=== PATIENT | male | born 1935 | race Caucasian/White ===

== ENCOUNTER 2020-02-06 07:01 | Outpatient (REF) | payer MEDICARE, SELFPAY ==
[2020-02-06 11:05] LABS: MANUAL DIFF FLAG NO
[2020-02-06 11:10] LABS: Basophils Absolute Auto 0.1 X10*3/uL (0.0-0.2); Basophils Percent Auto 1.2 % (0-2); Eosinophils Absolute Auto 0.4 X10*3/uL (0.0-0.4); Hematocrit 35.5 % (42-52); Hemoglobin 11.3 g/dl (14.0-18.0); Imm Gran Abs Auto 0.02 X10*3/uL (0.00-0.03); Imm Gran Pct Auto 0.2 % (0.0-0.4); Lymphocytes Absolute Auto 2.4 X10*3/uL (1.2-4.9); Lymphocytes Percent Auto 29.2 % (20-40); Mean Corpuscular HGB Conc 31.8 g/dl (31.0-36.0); Mean Corpuscular Hemoglobin 32.8 pg (27.0-33.0); Mean Corpuscular Volume 103.2 fL (80-98); Monocytes Percent Auto 12.7 % (2-11); Neutrophils Absolute Auto 4.2 X10*3/uL (2.0-8.3); Neutrophils Percent Auto 51.7 % (45-73); Platelet Count 168 X10*3/uL (160-400); Red Blood Count 3.44 X10*6/uL (4.60-5.80); Red Cell Distribution Width 13.2 % (11.0-16.0); White Blood Count 8.2 X10*3/uL (4.8-10.8)
[2020-02-06 11:27] LABS: Glucose Urine UA NEG (NEG); Leukocyte Esterase Urine NEG (NEG); Nitrite Urine NEG (NEG); PH 5.5 (5.0-8.0); Specific Gravity - Urine 1.015 (1.005-1.025); Urine Blood NEG (NEG); Urine Ketones NEG (NEG); Urine Protein NEG (NEG-TRACE)
[2020-02-06 11:31] LABS: Appearance Urine CLEAR; Color Urine YELLOW
[2020-02-06 11:47] LABS: Estimated Average Glucose 120 mg/dL; Hemoglobin A1c % 5.8 %
[2020-02-06 11:53] LABS: Bacteria Urine 2+ /LPF; RBC Urine 0 /HPF (0); Squamous Epithelial Cell Urine TRACE /LPF; WBC Urine 0-2 /HPF (0-4)
[2020-02-06 11:54] LABS: UACC CULT YES
[2020-02-06 12:00] LABS: Alanine Aminotransferase 23 U/L (0-40); Albumin Level 3.8 g/dL (3.5-5.0); Alkaline Phosphatase 30 U/L (39-117); Anion Gap 13 (12-20); Aspartate Amino Transferase 25 U/L (5-37); Bilirubin Total 0.8 mg/dL (0.0-1.0); Blood Urea Nitrogen 33 mg/dL (9-16); Calcium 8.7 mg/dL (8.4-10.2); Carbon Dioxide 24 mmol/L (22-29); Chloride 107 mmol/L (96-108); Cholesterol 112 mg/dL; Estimated Glomerular Filt Rate 40; Glucose Fasting 89 mg/dL (60-99); HDL Cholesterol 44 mg/dL; LDL Cholesterol Calculated 51 mg/dl; Sodium 139 mmol/L (135-145); Total Protein 6.6 g/dL (6.5-8.0); Triglycerides 85 mg/dL
[2020-02-06 12:04] LABS: Folate 6.7 ng/mL (> or = 4.0); Vitamin B12 1131 pg/mL (200-900)
[2020-02-06 13:52] LABS: TSH reflex Free T4 0.79 mIU/mL (0.32-4.0); Vitamin D 25-OH Total 50.6 ng/mL (>30)
== END 2020-02-06 07:02 | disposition home or self-care (01) ==
LOC: HO.HMGCLDS 07:01
PROVIDERS: PCP Internal Medicine; Visit Provider Internal Medicine
DX: E78.00 Pure hypercholesterolemia, unspecified (principal); I10 Essential (primary) hypertension; R74.8 Abnormal levels of other serum enzymes; R73.01 Impaired fasting glucose; I25.10 Atherosclerotic heart disease of native coronary artery without angina pectoris; D64.9 Anemia, unspecified; K21.9 Gastro-esophageal reflux disease without esophagitis; C67.9 Malignant neoplasm of bladder, unspecified; E55.9 Vitamin D deficiency, unspecified; E66.3 Overweight
CPT/HCPCS: 36415; 80053; 80061; 81001; 82306; 82607; 82746; 83036; 84443; 85025; 87086; 87088; 87186

== ENCOUNTER 2020-02-08 10:29 | Outpatient (REF) | payer MEDICARE, SELFPAY | END 2020-02-08 10:30 | disposition home or self-care (01) | LOC: HO.LAB 10:29 | PROVIDERS: Visit Provider Internal Medicine | DX: Z20.828 Contact with and (suspected) exposure to other viral communicable diseases (principal) | CPT/HCPCS: C9803; U0003 ==

== ENCOUNTER 2020-07-03 18:37 | Inpatient (IN) | payer OTHER, MEDICARE, SELFPAY ==
--- NOTE | ~2020-07-03 | CT_ITS ---
EXAMINATION: CT CERVICAL SPINE WITHOUT CONTRAST CLINICAL INFORMATION: Fall. Head trauma. COMPARISON: None available at the time of dictation. TECHNIQUE: CT of the cervical spine was performed without contrast. Multiplanar reformats were rendered and reviewed. This CT examination was performed using dose optimization techniques as appropriate, variously including the following: *Automated exposure control *Adjustment of mA and/or kV according to patient size (this includes techniques or standardized protocols for targeted exams where dose is matched to indication/reason for exam; i.e. extremities or head) *Use of iterative reconstruction technique DLP: 1416 mGy-cm FINDINGS: The cervical vertebral bodies maintain normal heights and alignment. Large bulky anterior endplate osteophytes are seen from C2 through C6. There is advanced intervertebral disc height loss from C2 through C6 with varying degrees of endplate sclerosis and prominent subchondral cystic changes. No fracture is seen. The craniovertebral junction appears intact. There are disc osteophyte complexes in addition to uncovertebral hypertrophy and facet arthropathy. At C5-C6 there is moderate to severe spinal canal stenosis. There is multilevel neural foraminal stenosis including high-grade narrowing at multiple levels. Dense atheromatous calcifications are seen within the arteries. The imaged portions of the intracranial contents are unremarkable. The lung apices are grossly clear. There is chronic appearing fracture of the left scapula. There is heterogeneous calcification within the left shoulder girdle. CT/CT cervical spine wo con IMPRESSION: No cervical spine fracture or traumatic malalignment identified. Advanced multilevel degenerative spondylotic changes with moderate to severe spinal canal stenosis seen at C5-C6 and multilevel high-grade neural foraminal stenosis. Chronic appearing fracture of the left scapula.
--- NOTE | ~2020-07-03 | XR_ITS ---
LIZBETH SEGOVIA, accession# [id number] EXAMINATION: BILATERAL HIPS CLINICAL INFORMATION: Fall COMPARISON: Pelvic images earlier today TECHNIQUE: Coned frontal and lateral views of both hips were obtained. FINDINGS: Minimally impacted slightly varus angulated intertrochanteric fracture of the right femur seen with mild medial displacement of the lesser trochanteric fragment. Femoral heads are well-seated within their respected acetabula with bilateral degenerative changes noted in both hips. Extensive vascular calcification. XR/XR hip BI w PEL1V IMPRESSION: Intratrochanteric fracture of the right femur
--- NOTE | ~2020-07-03 | FL_ITS ---
EXAMINATION: XR FLUOROSCOPY WITH IMAGES CLINICAL INFORMATION: Intertrochanteric right hip fracture, reduction. COMPARISON: Radiographs pelvis and bilateral hip 07/03/2020 TECHNIQUE: Fluoroscopy performed by Dr. Stalin Caraballo. Fluoroscopy time: 0.6 minutes DAP: 0.42 mGycm2 Images: 6 FINDINGS: Intertrochanteric fracture is reduced with gamma nail and intramedullary luz with distal interlocking screw. Major fracture fragments are in near-anatomic alignment. Visualized hardware intact. FL/FL guidance in OR IMPRESSION: Status post reduction right hip fracture.
--- NOTE | ~2020-07-03 | CT_ITS ---
EXAMINATION: CT HEAD WITHOUT CONTRAST CLINICAL INFORMATION: Fall. Head trauma. COMPARISON: None available at the time of dictation. TECHNIQUE: Contiguous axial imaging was performed from the skull base to vertex without intravenous administration of contrast. This CT examination was performed using dose optimization techniques as appropriate, variously including the following: *Automated exposure control *Adjustment of mA and/or kV according to patient size (this includes techniques or standardized protocols for targeted exams where dose is matched to indication/reason for exam; i.e. extremities or head) *Use of iterative reconstruction technique DLP: 1416 mGy-cm. FINDINGS: There is no intracranial hemorrhage, extra-axial collection, mass effect, or territorial infarction. A small chronic infarct is seen in the right occipital lobe. There are small chronic lacunar infarct in the right basal ganglia. Patchy hypoattenuation is seen in the cerebral white matter compatible with chronic microangiopathy. There is diffuse brain parenchymal volume loss with prominence of the ventricles and sulci. The calvarium is intact. The extracranial structures are within normal limits. CT/CT head/brain wo con IMPRESSION: No acute intracranial abnormality. 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
--- NOTE | ~2020-07-03 | XR_ITS ---
LIZBETH SEGOVIA, accession# [id number] EXAMINATION: PORTABLE CHEST 1 VIEW CLINICAL INFORMATION: Fall. COMPARISON: 05/15/[address] TECHNIQUE: Portable frontal view of the chest was obtained. FINDINGS: Chronic elevation of the left hemidiaphragm. Mild bibasilar atelectasis. No superimposed focal infiltrate, effusion, or pneumothorax. Cardiac silhouette remains prominent with vascular calcification in aorta. Chronic changes in the spine, bilateral shoulders, and left ribs XR/XR chest 1V IMPRESSION: Chronic appearing changes but no acute process.
--- NOTE | 2020-07-03 19:40 | PC.NURSE ---
Michelle, the wifes phone number [phone] call with plan
--- NOTE | 2020-07-03 20:09 | ED_ITS ---
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 Patient reports was walking outside when door flung back and hit him knocking him over. Reports fell backwards, hitting head, denies LOC. Denies any symptoms prior to fall. Has not been ambulatory since incident. Denies CP/SOB, neck/back pain, urinary incontinence/retention, nausea/vomiting, numbness/tingling, weakness complaint: fall Related Data Home Medications Medication Instructions Recorded Confirmed aspirin 81 mg tablet,delayed 81 mg PO DAILY 03/25/20 06/11/20 release atorvastatin 80 mg tablet 80 mg PO DAILY 03/25/20 06/11/20 ezetimibe 10 mg tablet 10 mg PO DAILY 03/25/20 06/11/20 Previous Rx's Medication Instructions Recorded mirtazapine 7.5 mg tablet 7.5 mg PO BEDTIME #90 tab 01/21/20 gabapentin 300 mg capsule 300 mg PO Q8H #90 cap 04/09/20 tramadol 50 mg tablet 50 mg PO BEDTIME PRN 30 Days #30 06/11/20 tab lisinopril 20 mg tablet 20 mg PO DAILY #90 tab 06/21/20 metoprolol tartrate 25 mg tablet 25 mg PO BID #180 tab 06/21/20 Allergies Allergy/AdvReac Type Severity Reaction Status Date / Time No Known Allergies Allergy Mild N/A Verified 06/11/20 15:56 Review of Systems Review of Systems: Constitutional: No Fever, No Chills Eyes: No Vision Changes Cardiovascular: No Chest Pain, No SOB Respiratory: No Cough, No Dyspnea Gastrointestinal: No Nausea, No Vomiting, No Diarrhea, No Abdominal pain Musculoskeletal: +R hip pain Skin: No Skin Lesions, No rash Neuro: No Weakness, No Numbness, No Loss of Consciousness, No Dizziness, +Head Injury Yes all other systems are reviewed and are negative Neurologic: Denies Abnormal speech present [facility] Past Medical History Attestation statement: The following information was validated with the patient. Medical History Anemia Benign essential hypertension Chronic kidney disease, stage III (moderate) Coronary artery disease Depression Elevated liver enzymes GERD without esophagitis Impaired fasting glucose Osteoarthritis of both knees Overweight (BMI 25.0-29.9) Primary osteoarthritis, right shoulder Pure hypercholesterolemia Subdural hematoma Urothelial carcinoma of bladder Vitamin B12 deficiency Vitamin D deficiency Surgical History History of shoulder surgery History of transurethral resection of prostate Family History Family History Father CVD (cardiovascular disease) Mother Hypertension Social History Social History Alcohol intake: current Alcohol intake frequency: holidays/special occasions only Alcohol type: wine Smoking Status: Former smoker Advance Directives: No Physical Exam Vital Signs: Vital Signs: Last Vital Signs Pulse 59 07/03/20 20:20 Resp 16 07/03/20 20:20 BP 156/46 H 07/03/20 20:20 Pulse Ox 97 07/03/20 20:20 Const: General: cooperative, healthy appearing, comfortable and no acute distress Orientation/consciousness: patient oriented x3 Limitations: no limitations HENMT: Head: Yes normal to inspection, Yes atraumatic, No Lange's sign and No raccoon eyes Ears: hearing grossly normal bilaterally General nose exam: Normal external nose present Face and sinus: Yes normal facial exam Eyes: General: appearance normal, both eyes and all related structures Pupils: Equal, round and reactive pupils present EOM: EOMs intact bilaterally Neck: Other: C-collar. No midline cervical spinous ttp Neck: Yes normal visual inspection and Yes no meningeal signs Chest: Chest palpation & inspection: normal inspection of the chest, no crepitus and no tenderness Resp: Effort & Inspection: normal respiratory effort Auscultation: clear to auscultation bilaterally Cardio: Rate: regular rate Heart sounds: S1 normal heart sound present and S2 normal heart sound present GI: Inspection: Yes normal to inspection Palpation (GI): Soft to palpation, nontender, no guarding and not rigid Back/Spine/Pelvis: Other: No midline thoracic/lumbar spinous ttp or step offs Skin: Rashes: no rashes Wounds: no wounds Neuro: General: patient oriented x3, tone normal and no meningeal signs Cranial nerves: Yes Equal, round and reactive pupils present Cognition (Neuro): normal cognition Speech: No Abnormal speech present Motor exam (neuro): Pronator motor function not present and no tremor 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 Right hip with mild tenderness to palpation. Decreased active ROM secondary to pain. Neurovascularly intact distally General: Yes normal to inspection Course Course Course Narrative: - x-ray show hip fracture. Orthopedics aware > will admit to medicine. 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 Patient reports was walking outside when door flung back and hit him knocking him over. On exam VSS, NAD, no focal neuro deficits, C-collar in place, right hip tender to palpation. No midline spinous tenderness. Concern for ICH/fracture. Plan: Head CT/C-spine CT, x-rays Medical Records Attestation: I reviewed the patient's medical records. Discharge Plan Discharge Clinical Impression: Closed hip fracture, Fall Patient Disposition: Admitted As Inpatient Prescriptions: No Action mirtazapine 7.5 mg tablet 7.5 mg PO BEDTIME Qty: 90 RF: 3 gabapentin 300 mg capsule 300 mg PO Q8H Qty: 90 RF: 3 metoprolol tartrate 25 mg tablet 25 mg PO BID Qty: 180 RF: 3 lisinopril 20 mg tablet 20 mg PO DAILY Qty: 90 RF: 3 atorvastatin 80 mg tablet 80 mg PO DAILY RF: 0 aspirin 81 mg tablet,delayed release (DR/EC) 81 mg PO DAILY RF: 0 ezetimibe 10 mg tablet 10 mg PO DAILY RF: 0 tramadol 50 mg tablet 50 mg PO BEDTIME PRN (Reason: pain) 30 Days Qty: 30 RF: 1
[2020-07-03 20:20] VITALS: BP 156/46; PULSE 59; RESP 16; O2SAT 97
--- NOTE | 2020-07-03 21:05 | ECG_ITS ---
Test Reason : FALL Blood Pressure : / mmHG Vent. Rate : 058 BPM Atrial Rate : 060 BPM P-R Int : 000 ms QRS Dur : 084 ms QT Int : 442 ms P-R-T Axes : 000 -01 040 degrees QTc Int : 433 ms Normal sinus rhythm Normal EKG Abnormal ECG When compared with ECG of 02-JUN-2016 09:59, No significant changes seen Referred By: Lisa Wallace Electronically Signed By:MARIA ELENA WOODS
[2020-07-03 23:50] VITALS: BP 150/65; PULSE 69; RESP 16; TEMP 36.8; O2SAT 96
[2020-07-04] VITALS (17 sets, daily range): BP systolic 101–146; BP diastolic 52–71; PULSE 63–81; RESP 12–22; TEMP 36.4–37.7; O2SAT 93–100; BMI 27.3
--- NOTE | 2020-07-04 00:08 | PC.NURSE ---
PATIENT BLOOD DRAW WAS DONE BY THIS PCT .
--- NOTE | 2020-07-04 00:09 | PC.NURSE ---
PATIENT WAS HELP WITH UNDRESSING BY THIS PCT AND PCT [facility]
[2020-07-04 00:19] LABS: Basophils Absolute Auto 0.1 X10*3/uL (0.0-0.2); Basophils Percent Auto 0.5 % (0-2); Eosinophils Absolute Auto 0.3 X10*3/uL (0.0-0.4); Eosinophils Percent Auto 1.9 % (0-4); Hematocrit 33.2 % (42-52); Hemoglobin 10.6 g/dl (14.0-18.0); Imm Gran Abs Auto 0.07 X10*3/uL (0.00-0.03); Imm Gran Pct Auto 0.4 % (0.0-0.4); Lymphocytes Absolute Auto 2.6 X10*3/uL (1.2-4.9); Lymphocytes Percent Auto 16.1 % (20-40); MANUAL DIFF FLAG SCAN; Mean Corpuscular HGB Conc 31.9 g/dl (31.0-36.0); Mean Corpuscular Hemoglobin 33.1 pg (27.0-33.0); Mean Corpuscular Volume 103.8 fL (80-98); Mean Platelet Volume 10.1 fL (9.4-12.4); Monocytes Absolute Auto 1.8 X10*3/uL (0.1-1.2); Monocytes Percent Auto 11.3 % (2-11); Neutrophils Absolute Auto 11.2 X10*3/uL (2.0-8.3); Neutrophils Percent Auto 69.8 % (45-73); Platelet Count 211 X10*3/uL (160-400); SCAN SMEAR FLAG 1; White Blood Count 16.1 X10*3/uL (4.8-10.8)
[2020-07-04 00:34] LABS: COVID-19 Test Negative (Negative)
[2020-07-04 00:47] LABS: Anion Gap 13 (12-20); Blood Urea Nitrogen 27 mg/dL (9-16); Calcium 9.3 mg/dL (8.4-10.2); Carbon Dioxide 24 mmol/L (22-29); Chloride 110 mmol/L (96-108); Glucose Random 131 mg/dL (60-115); Potassium 5.1 mmol/L (3.3-5.1); Sodium 142 mmol/L (135-145)
[2020-07-04 00:52] LABS: SLIDE REVIEW VERIFIED
[2020-07-04 00:54] LABS: Estimated Glomerular Filt Rate 47
[2020-07-04 00:54] LABS: Glucose Urine UA NEG (NEG); Leukocyte Esterase Urine NEG (NEG); Nitrite Urine NEG (NEG); PH 5.5 (5.0-8.0); Specific Gravity - Urine >= 1.030 (1.005-1.025); Urine Blood TRACE (NEG); Urine Ketones NEG (NEG); Urine Protein NEG (NEG-TRACE)
[2020-07-04 00:58] LABS: Appearance Urine CLEAR; Color Urine YELLOW
[2020-07-04 01:01] LABS: Bacteria Urine 3+ /LPF; Squamous Epithelial Cell Urine 1+ /LPF
--- NOTE | 2020-07-04 05:26 | PM.IMHP ---
History of Present Illness Date of Service: 07/03/20 Chief Complaint: Fall 84-year-old male with past medical history of asthma, HTN, CKD, CAD, depression, osteoarthritis, HLD, presents to the hospital after experiencing a fall. Patient is hard of hearing but I was able to get some history. Patient reports that he was walking to the [place], turned to talk to his , lost his balance and fell. Sustaining severe pain and injury to his right hip. He reports that he was unable to get up due to the severe pain. He otherwise denies any headache, change in vision, no dizziness, no chest pain, no palpitation, no abdominal pain nausea or vomiting, no diarrhea or constipation, no urinary symptoms and no lower extremity edema. To the ED hemodynamically stable with No significant abnormal vitals Labs are significant for WBC count of 16.1, hemoglobin of 10.6, hematocrit of 33.2 chloride of 110, BUN of 27, creatinine of 1.44 which is around his baseline, UA negative, COVID-19 negative, spine fracture or traumatic malalignment, advanced degenerative changes, CT head shows no acute intracranial abnormality, x-ray of hip shows intratrochanteric fracture of the right femur. Chest x-ray shows chronic appearing changes but no acute process. Past medical history as below and patient will be admitted for further management Review of Systems Review of Systems: Yes all other systems are reviewed and are negative [facility] Medical History Anemia Benign essential hypertension Chronic kidney disease, stage III (moderate) Coronary artery disease Depression Elevated liver enzymes GERD without esophagitis Impaired fasting glucose Osteoarthritis of both knees Overweight (BMI 25.0-29.9) Primary osteoarthritis, right shoulder Pure hypercholesterolemia Subdural hematoma Urothelial carcinoma of bladder Vitamin B12 deficiency Vitamin D deficiency Functional capacity: independent ambulation Family History Father CVD (cardiovascular disease) Mother Hypertension Surgical History History of shoulder surgery History of transurethral resection of prostate Social History Alcohol intake: current Alcohol intake frequency: does not drink Alcohol type: wine Smoking Status: Never smoker Use of substances other than those prescribed or required for medical reasons: No Advance Directives: No Meds Allergies Allergy/AdvReac Type Severity Reaction Status Date / Time No Known Allergies Allergy Mild N/A Verified 06/11/20 15:56 Active Medications: Current Medications Generic Name Dose Route Start Last Admin Trade Name Freq PRN Reason Stop Dose Admin Acetaminophen 650 mg 07/04/20 00:35 Acetaminophen 325 Mg Tablet PO Q6H PRN Pain, Mild (Pain Scale 1-3) Atorvastatin Calcium 80 mg 07/04/20 21:00 Atorvastatin Calcium 80 Mg Tablet PO BEDTIME [facility] Cyanocobalamin 1,000 mcg 07/04/20 09:00 Cyanocobalamin (Vitamin B-12) 1,000 Mcg Tablet PO DAILY [facility] Docusate Sodium 100 mg 07/04/20 00:35 Docusate Sodium 100 Mg Capsule PO DAILY PRN Constipation Ezetimibe 10 mg 07/04/20 09:00 Ezetimibe 10 Mg Tablet PO DAILY [facility] Escitalopram Oxalate 20 mg 07/04/20 09:00 Escitalopram Oxalate 20 Mg Tablet PO DAILY [facility] Gabapentin 300 mg 07/04/20 09:00 Gabapentin 300 Mg Capsule PO BID [facility] Latanoprost 1 drop 07/04/20 21:00 Latanoprost 0.005 % Ophth Lolita 2.5 Ml Drops EYE-BOTH BEDTIME [facility] Lisinopril 20 mg 07/04/20 09:00 Lisinopril 20 Mg Tablet PO DAILY [facility] Protocol Metoprolol Tartrate 25 mg 07/04/20 09:00 Metoprolol Tartrate 25 Mg Tablet PO BID [facility] Protocol Mirtazapine 7.5 mg 07/04/20 21:00 Mirtazapine 7.5 Mg Tablet PO BEDTIME [facility] Morphine Sulfate 4 mg 07/04/20 00:35 Morphine Sulfate 4 Mg/Ml Cartridge IVPUSH Q4H PRN Pain, Severe (Pain Scale 7-10) Ondansetron HCl 4 mg 07/04/20 00:35 Ondansetron Hcl 4 Mg/2 Ml Vial IVPUSH Q8H PRN Nausea and Vomiting Pharmacy Consult 1 each 07/03/20 21:09 Consult Rx Perform Med Rec MISCELLANE ONCE PRN Consult order Sodium Chloride 3 ml 07/04/20 00:35 07/04/20 02:05 0.9 % Sodium Chloride Flush 3 Ml Syringe IVFLUSH Not Given QSHIFT [facility] Tramadol HCl 50 mg 07/04/20 00:44 Tramadol Hcl 50 Mg Tablet PO BEDTIME PRN Pain, Severe (Pain Scale 7-10) Vitamin D 250 mcg 07/04/20 09:00 Cholecalciferol (Vitamin D3) 25 Mcg Tablet PO DAILY [facility] Home Medications Medication Instructions Recorded Confirmed Last Taken Type aspirin 81 mg tablet,delayed 81 mg PO DAILY 03/25/20 07/03/20 07/03/20 History release atorvastatin 80 mg tablet 80 mg PO BEDTIME 03/25/20 07/03/20 07/02/20 History ezetimibe 10 mg tablet 10 mg PO DAILY 03/25/20 07/03/20 07/03/20 History cholecalciferol (vitamin D3) 250 mcg PO DAILY 07/03/20 07/03/20 07/03/20 History [Vitamin D3] cyanocobalamin (vitamin B-12) 1,000 mcg PO DAILY 07/03/20 07/03/20 07/03/20 History escitalopram oxalate 20 mg PO DAILY 07/03/20 07/03/20 07/03/20 History gabapentin 300 mg PO BID 07/03/20 07/03/20 07/03/20 History latanoprost 1 drp OPHTHALMIC (EYE) BEDTIME 07/03/20 07/03/20 07/02/20 History tramadol 50 mg PO BEDTIME 07/03/20 07/03/20 07/02/20 History vitamins A,C,S-[id number] 1 tab PO BID 07/03/20 07/03/20 07/03/20 History [PreserVision AREDS] Physical Exam Vital Signs and Narrative: Vital Signs: Last Vital Signs Temp 98.1 F 07/04/20 01:48 Pulse 75 07/04/20 01:48 Resp 16 07/04/20 01:48 BP 146/65 H 07/04/20 01:48 Pulse Ox 96 07/04/20 01:48 Const: General: cooperative and no acute distress Orientation/consciousness: patient oriented x3 HENMT: Other: Hard of hearing Eyes: General: appearance normal, both eyes and all related structures Pupils: Equal, round and reactive pupils present Resp: Effort & Inspection: normal respiratory effort and able to speak in complete sentences Cardio: Rate: regular rate Rhythm: regular rhythm GI: Palpation (GI): Soft to palpation Auscultation: normal bowel sounds Skin: General skin exam: no rashes or lesions noted Neuro: General: patient oriented x3 Cranial nerves: Yes Equal, round and reactive pupils present Cognition (Neuro): normal cognition Extrem: Other: Externally rotated right leg, shortened General: Yes no pedal edema Results Labs CBC and Chem 7: 07/04/20 00:05 07/04/20 00:05 Labs: Laboratory Results - last 24 hr 07/04/20 07/04/20 07/04/20 00:05 00:05 00:05 MCV 103.8 H MCH 33.1 H MCHC 31.9 RDW 13.0 Plt Count 211 D MPV 10.1 Immature Gran % (Auto) 0.4 Neut % (Auto) 69.8 Lymph % (Auto) 16.1 L [place] % (Auto) 11.3 H Eos % (Auto) 1.9 Baso % (Auto) 0.5 Lymph # (Auto) 2.6 [place] # (Auto) 1.8 H Eos # (Auto) 0.3 Baso # (Auto) 0.1 Abs Immat Gran (auto) 0.07 H Absolute Neuts (auto) 11.2 H Absolute Nucleated RBC 0.000 Nucleated RBC % (auto) 0.0 Smear Tech's Comments VERIFIED Hold Blue Top SEE NOTE Anion Gap 13 Estim Creat Clear Calc TNP Estimated GFR 47 Random Glucose 131 H Calcium 9.3 D Urine Color Urine Appearance Urine pH Ur Specific Weed Urine Protein Urine Glucose (UA) Urine Ketones Urine Blood Urine Nitrite Ur Leukocyte Esterase Urine RBC Urine WBC Ur Squamous Epith Cells Urine Bacteria COVID-19 ([facility]) COVID-19 Clin Com 07/04/20 07/04/20 00:05 00:44 MCV MCH MCHC RDW Plt Count MPV Immature Gran % (Auto) Neut % (Auto) Lymph % (Auto) [place] % (Auto) Eos % (Auto) Baso % (Auto) Lymph # (Auto) [place] # (Auto) Eos # (Auto) Baso # (Auto) Abs Immat Gran (auto) Absolute Neuts (auto) Absolute Nucleated RBC Nucleated RBC % (auto) Smear Tech's Comments Hold Blue Top Anion Gap Estim Creat Clear Calc Estimated GFR Random Glucose Calcium Urine Color YELLOW Urine Appearance CLEAR Urine pH 5.5 Ur Specific Weed >= 1.030 H Urine Protein NEG Urine Glucose (UA) NEG Urine Ketones NEG Urine Blood TRACE Urine Nitrite NEG Ur Leukocyte Esterase NEG Urine RBC 5-9 H Urine WBC 1-4 Ur Squamous Epith Cells 1+ Urine Bacteria 3+ COVID-19 ([facility]) Negative COVID-19 Clin Com See Note Assessment and Plan (1) Closed hip fracture: Qualifiers: Encounter type: initial encounter Laterality: right Qualified Code(s): S72.001A - Fracture of unspecified part of neck of right femur, initial encounter for closed fracture Status: Acute (2) Fall: Status: Acute This is a 84-year-old male with past medical history of HTN, HLD, osteoarthritis who presents to the hospital after a fall and experiencing a fracture # right hip fracture - secondary to mechanical fall - consult made to Orthopedic surgery - pain control - will keep NPO for potential intervention in a.m. # fall - appears mechanical - PT OT post surgery # CKD - baseline creatinine function - follow BMP # HTN - stable - continue home regimen # HLD - continue home regimen DVT prophylaxis: SCDs
[2020-07-04] MEDS: Morphine Sulfate 4 MG/ML CARTRIDGE IVPUSH ×2 (06:21→10:34)
[2020-07-04 06:24] LABS: MANUAL DIFF FLAG NO
[2020-07-04 06:46] LABS: Basophils Absolute Auto 0.1 X10*3/uL (0.0-0.2); Basophils Percent Auto 0.5 % (0-2); Eosinophils Percent Auto 0.2 % (0-4); Hematocrit 30.3 % (42-52); Hemoglobin 9.6 g/dl (14.0-18.0); Imm Gran Abs Auto 0.06 X10*3/uL (0.00-0.03); Imm Gran Pct Auto 0.5 % (0.0-0.4); Lymphocytes Absolute Auto 1.5 X10*3/uL (1.2-4.9); Lymphocytes Percent Auto 11.6 % (20-40); Mean Corpuscular HGB Conc 31.7 g/dl (31.0-36.0); Mean Corpuscular Volume 104.1 fL (80-98); Mean Platelet Volume 10.5 fL (9.4-12.4); Monocytes Absolute Auto 1.4 X10*3/uL (0.1-1.2); Monocytes Percent Auto 11.2 % (2-11); Neutrophils Absolute Auto 9.5 X10*3/uL (2.0-8.3); Platelet Count 157 X10*3/uL (160-400); Red Blood Count 2.91 X10*6/uL (4.60-5.80); Red Cell Distribution Width 12.9 % (11.0-16.0); White Blood Count 12.5 X10*3/uL (4.8-10.8)
[2020-07-04 06:56] LABS: Anion Gap 17 (12-20); Blood Urea Nitrogen 27 mg/dL (9-16); Calcium 8.8 mg/dL (8.4-10.2); Carbon Dioxide 20 mmol/L (22-29); Chloride 109 mmol/L (96-108); Estimated Glomerular Filt Rate 52; Glucose Random 124 mg/dL (60-115); Potassium 4.7 mmol/L (3.3-5.1); Sodium 141 mmol/L (135-145)
--- NOTE | 2020-07-04 07:48 | PC.NURSE ---
call placed to [facility] [place] for report
--- NOTE | 2020-07-04 08:23 | PC.NURSE ---
[place] [facility] [place]
[2020-07-04] MEDS: 0.9 % Sodium Chloride Flush 3 ML SYRINGE IVFLUSH ×2 (08:32→17:15)
--- NOTE | 2020-07-04 08:55 | ECG_ITS ---
Test Reason : PRE OP Blood Pressure : / mmHG Vent. Rate : 071 BPM Atrial Rate : 071 BPM P-R Int : 000 ms QRS Dur : 072 ms QT Int : 400 ms P-R-T Axes : 000 -11 017 degrees QTc Int : 434 ms Artifact in tracing Normal sinus rhythm Normal EKG When compared with ECG of 03-JUL-2020 21:40, No significant change was found Referred By: Padmini Salmon Electronically Signed By:MARIA ELENA WOODS
--- NOTE | 2020-07-04 09:44 | P.HPOP_ITS ---
History of Present Illness History of Present Illness Date of Service: 07/04/20 Chief complaint: R HIP FRAX Narrative: Maik Lynch is a 84 year old male who presents to the emergency department early this morning after sustaining a fall injuring his right hip. He states he was walking when he stop to turn and lost his balance and fell. Once he fell he was unable to get up and ambulate. EMS was called and the patient was transported to the emergency department for evaluation. X-rays and examination demonstrated a right intertrochanteric fracture of the femur. He was admitted to the hospital service and Orthopedics was consulted for surgical planning. Review of Systems Review of Systems: Yes all other systems are reviewed and are negative [facility] Past Medical History Medical History Anemia Benign essential hypertension Chronic kidney disease, stage III (moderate) Coronary artery disease Depression Elevated liver enzymes GERD without esophagitis Impaired fasting glucose Osteoarthritis of both knees Overweight (BMI 25.0-29.9) Primary osteoarthritis, right shoulder Pure hypercholesterolemia Subdural hematoma Urothelial carcinoma of bladder Vitamin B12 deficiency Vitamin D deficiency Functional capacity: independent ambulation Family History Family History Father CVD (cardiovascular disease) Mother Hypertension Surgical History Surgical History History of shoulder surgery History of transurethral resection of prostate Social History Social History Alcohol intake: current Alcohol intake frequency: does not drink Alcohol type: wine Smoking Status: Never smoker Use of substances other than those prescribed or required for medical reasons: No Advance Directives: No Meds Allergies Allergy/AdvReac Type Severity Reaction Status Date / Time No Known Allergies Allergy Mild N/A Verified 06/11/20 15:56 Active Medications: Current Medications Generic Name Dose Route Start Last Admin Trade Name Freq PRN Reason Stop Dose Admin Acetaminophen 650 mg 07/04/20 00:35 Acetaminophen 325 Mg Tablet PO Q6H PRN Pain, Mild (Pain Scale 1-3) Atorvastatin Calcium 80 mg 07/04/20 21:00 Atorvastatin Calcium 80 Mg Tablet PO BEDTIME [facility] Cyanocobalamin 1,000 mcg 07/04/20 09:00 Cyanocobalamin (Vitamin B-12) 1,000 Mcg Tablet PO DAILY [facility] Docusate Sodium 100 mg 07/04/20 00:35 Docusate Sodium 100 Mg Capsule PO DAILY PRN Constipation Ezetimibe 10 mg 07/04/20 09:00 Ezetimibe 10 Mg Tablet PO DAILY [facility] Escitalopram Oxalate 20 mg 07/04/20 09:00 Escitalopram Oxalate 20 Mg Tablet PO DAILY [facility] Gabapentin 300 mg 07/04/20 09:00 Gabapentin 300 Mg Capsule PO BID [facility] Cefazolin Sodium/Dextrose 2 gm in 50 mls @ 100 mls/hr 07/04/20 12:00 Ancef IV 07/04/20 12:29 PREOP ONE Latanoprost 1 drop 07/04/20 21:00 Latanoprost 0.005 % Ophth [place]ilta 2.5 Ml Drops EYE-BOTH BEDTIME [facility] Lisinopril 20 mg 07/04/20 09:00 Lisinopril 20 Mg Tablet PO DAILY [facility] Protocol Metoprolol Tartrate 25 mg 07/04/20 09:00 Metoprolol Tartrate 25 Mg Tablet PO BID [facility] Protocol Mirtazapine 7.5 mg 07/04/20 21:00 Mirtazapine 7.5 Mg Tablet PO BEDTIME [facility] Morphine Sulfate 4 mg 07/04/20 00:35 07/04/20 06:21 Morphine Sulfate 4 Mg/Ml Cartridge IVPUSH 4 mg Q4H PRN Administration Pain, Severe (Pain Scale 7-10) Ondansetron HCl 4 mg 07/04/20 00:35 Ondansetron Hcl 4 Mg/2 Ml Vial IVPUSH Q8H PRN Nausea and Vomiting Pharmacy Consult 1 each 07/03/20 21:09 Consult Rx Perform Med Rec MISCELLANE ONCE PRN Consult order Sodium Chloride 3 ml 07/04/20 00:35 07/04/20 08:32 0.9 % Sodium Chloride Flush 3 Ml Syringe IVFLUSH 3 ml QSHIFT [facility] Administration Tramadol HCl 50 mg 07/04/20 00:44 Tramadol Hcl 50 Mg Tablet PO BEDTIME PRN Pain, Severe (Pain Scale 7-10) Vitamin D 250 mcg 07/04/20 09:00 Cholecalciferol (Vitamin D3) 25 Mcg Tablet PO DAILY [facility] Home Medications Medication Instructions Recorded Confirmed Last Taken Type aspirin 81 mg tablet,delayed 81 mg PO DAILY 03/25/20 07/03/20 07/03/20 History release atorvastatin 80 mg tablet 80 mg PO BEDTIME 03/25/20 07/03/20 07/02/20 History ezetimibe 10 mg tablet 10 mg PO DAILY 03/25/20 07/03/20 07/03/20 History cholecalciferol (vitamin D3) 250 mcg PO DAILY 07/03/20 07/03/20 07/03/20 History [Vitamin D3] cyanocobalamin (vitamin B-12) 1,000 mcg PO DAILY 07/03/20 07/03/20 07/03/20 History escitalopram oxalate 20 mg PO DAILY 07/03/20 07/03/20 07/03/20 History gabapentin 300 mg PO BID 07/03/20 07/03/20 07/03/20 History latanoprost 1 drp OPHTHALMIC (EYE) BEDTIME 07/03/20 07/03/20 07/02/20 History tramadol 50 mg PO BEDTIME 07/03/20 07/03/20 07/02/20 History vitamins A,C,O-duup-bkdlzz 1 tab PO BID 07/03/20 07/03/20 07/03/20 History [PreserVision AREDS] Physical Exam Vital Signs: Vital Signs: Last Vital Signs Temp 98.1 F 07/04/20 01:48 Pulse 81 07/04/20 06:00 Resp 22 H 07/04/20 06:21 BP 146/68 H 07/04/20 06:00 Pulse Ox 98 07/04/20 06:00 Const: General: cooperative, healthy appearing, comfortable, no acute distress, well developed and alert Orientation/consciousness: patient oriented x3 HENMT: Head: Yes normal to inspection, Yes normocephalic and Yes atraumatic Eyes: General: appearance normal, both eyes and all related structures Neck: Neck: Yes normal visual inspection and Yes no lymphadenopathy Resp: Effort & Inspection: normal respiratory effort and able to speak in complete sentences Cardio: Rate: regular rate Peripheral pulses: Peripheral pulses 2+ throughout GI: Inspection: Yes normal to inspection Palpation (GI): Soft to palpation Skin: General skin exam: no rashes or lesions noted Neuro: General: patient oriented x3 Extrem: Other: Right hip skin intact. There is mild tenderness of the lateral aspect of the hip and pain with log roll. He is unable to straight leg raise. Peripheral pulses and sensation intact. X-rays of the right hip demonstrate an intertrochanteric fracture of the femur. Psych: Appearance: grossly normal Mental Status: mental status grossly normal Results Labs Result Diagrams: 07/04/20 06:19 07/04/20 06:19 Labs: Abnormal lab results 07/04/20 07/04/20 07/04/20 Range/Units 00:05 00:05 00:44 WBC 16.1 H (4.8-10.8) X10*3/uL RBC 3.20 L (4.60-5.80) X10*6/uL Hgb 10.6 L (14.0-18.0) g/dl Hct 33.2 L (42-52) % MCV 103.8 H (80-98) fL MCH 33.1 H (27.0-33.0) pg Plt Count (160-400) X10*3/uL Immature Gran % (Auto) (0.0-0.4) % Neut % (Auto) (45-73) % Lymph % (Auto) 16.1 L (20-40) % [place] % (Auto) 11.3 H (2-11) % [place] # (Auto) 1.8 H (0.1-1.2) X10*3/uL Abs Immat Gran (auto) 0.07 H (0.00-0.03) X10*3/uL Absolute Neuts (auto) 11.2 H (2.0-8.3) X10*3/uL Chloride 110 H (96-108) mmol/L Carbon Dioxide (22-29) mmol/L BUN 27 H (9-16) mg/dL Creatinine 1.44 H (0.5-1.4) mg/dL Random Glucose 131 H (60-115) mg/dL Ur Specific [place] >= 1.030 H (1.005-1.025) Urine RBC 5-9 H (0) /HPF 07/04/20 07/04/20 Range/Units 06:19 06:19 WBC 12.5 H (4.8-10.8) X10*3/uL RBC 2.91 L (4.60-5.80) X10*6/uL Hgb 9.6 L (14.0-18.0) g/dl Hct 30.3 L (42-52) % MCV 104.1 H (80-98) fL MCH (27.0-33.0) pg Plt Count 157 L D (160-400) X10*3/uL Immature Gran % (Auto) 0.5 H (0.0-0.4) % Neut % (Auto) 76.0 H (45-73) % Lymph % (Auto) 11.6 L (20-40) % [place] % (Auto) 11.2 H (2-11) % [place] # (Auto) 1.4 H (0.1-1.2) X10*3/uL Abs Immat Gran (auto) 0.06 H (0.00-0.03) X10*3/uL Absolute Neuts (auto) 9.5 H (2.0-8.3) X10*3/uL Chloride 109 H (96-108) mmol/L Carbon Dioxide 20 L (22-29) mmol/L BUN 27 H (9-16) mg/dL Creatinine (0.5-1.4) mg/dL Random Glucose 124 H (60-115) mg/dL Ur Specific [place] (1.005-1.025) Urine RBC (0) /HPF H & H 07/04/20 07/04/20 Range/Units 00:05 06:19 Hgb 10.6 L 9.6 L (14.0-18.0) g/dl Hct 33.2 L 30.3 L (42-52) % All other labs normal. Assessment and Plan (1) Closed hip fracture: Qualifiers: Encounter type: initial encounter Laterality: right Qualified Code(s): S72.001A - Fracture of unspecified part of neck of right femur, initial encounter for closed fracture Status: Acute I discussed the case with Dr. Caraballo and explained the extent of the injury to the patient and options available which include surgical intervention. I explained the procedure in detail along with the length of recovery and rehab course. I explained the risk, benefits and alternatives. Risk including, but not limited to infection, blood clots, bleeding, non union or malunion and nerve/tissue damage to surrounding areas. I answered all their questions and with their understanding they have consented to move forward with Operative Fixation of the right hip . The patient with be T&S, med clearance obtained and NPO after midnight.
[2020-07-04] MEDS: lisinopriL 20 MG TABLET PO (09:56)
[2020-07-04] MEDS: Gabapentin 300 MG CAPSULE PO (09:56)
[2020-07-04] MEDS: Metoprolol Tartrate 25 MG TABLET PO (09:56)
[2020-07-04] MEDS: Escitalopram Oxalate 20 MG TABLET PO (09:56)
--- NOTE | 2020-07-04 10:35 | PM.EVENT ---
Event Note Date of Service: 07/04/20 Event Note: Pt seen and examined. Pt intermediate to high risk, discussed with at bedside No further workup needed prior to planned procedure.
--- NOTE | 2020-07-04 11:05 | MHC.CM.PN ---
met with pt and his pt to have surgery today for hip repair filed hcp ist choice for [facility]
--- NOTE | 2020-07-04 11:34 | MHC.CM.PN ---
family notified [facility] not a contracted facility additional referrals sent
--- NOTE | 2020-07-04 12:45 | CA_ITS ---
Transthoracic Echocardiogram Patient (Last, First, Middle): Maik Lynch J Gender: Male Date of : 1935 Age: 84 Procedure Date: 07/04/2020 Procedure Type: Transthoracic Echocardiogram Location: [facility] Height: 170.18 cm Weight: 79.38 kg BSA: 1.91 m2 Heart Rate: bpm BP: 119 / 71 mmHg Lpta: LATASHA Referring MD: Ramin Marino MD Symptoms: Preoperative evaluation, evaluate for , LVEF Study Quality: Technically Difficult; Patient confused and not ECG Rhythm: Sinus Conclusions: - Based on very limited views, LVEF possibly > 50%. No further assessment can be made. - There is moderate aortic valve stenosis. Underestimation is possible. Findings Left Ventricle The left ventricle was not well visualized. Based on very limited views, LVEF possibly > 50%. No further assessment can be made. Aortic Valve There is moderate calcification of the aortic valve. There is moderate aortic valve stenosis. The peak aortic velocity is 2.73 m/s with a calculated peak gradient of 30 mmHg. The mean gradient is 15 mmHg. The aortic valve area is 1.06 cm2. There is no aortic valve regurgitation. Prior Study Comparison Changes noted compared to prior study dated: 03/12/2011. See comments on aortic valve. Measurements 2D Linear Measurements LVOT Diam: 2.10 3.0+(-)1.3 cm Aortic Valve AoV Pk Ron: 2.73 AoV Mn Ron: 1.81 AoV VTI: 0.60 AoV Pk Grad: 30.00 Aov Mn Grad: 15.00 KANDACE Cont.VTI: 1.06 LVOT LVOT Pk Ron: 0.75 LVOT Mn Ron: 0.47 LVOT VTI: 0.18 LVOT Pk Grad: 2.00 LVOT Mn Grad: 1.00 LVOT Diam: 2.10 LVOT Area: 3.46 Updated in Other Vendor System with Status of Final Ramin Marino MD electronically signed on 07/04/2020 2:14:45 PM with status of Final
--- NOTE | 2020-07-04 12:46 | PM.CNCAR ---
History of Present Illness History of Present Illness Date of Service: 07/04/20 Consult reason: pre-op evaluation Chief complaint: R HIP FRAX Narrative: Asked to see for preop evaluation for hip surgery. Patient is confused and not able to give hx. Per , hx of myocardial infarction many years ago, but she cannot say anything further. Denies hx of cardiac catheterization. Seems that he does get confused every now and then and possibly has dementia. No chest pain or any other cardiac symptoms in the preceding days. This is a mechanical fall leading to hip fracture. Review of Systems Review of Systems: Yes Unobtainable due to mental condition and Unobtainable due to mental status PMFSH Past Medical History Medical History Anemia Benign essential hypertension Chronic kidney disease, stage III (moderate) Coronary artery disease Depression Elevated liver enzymes GERD without esophagitis Impaired fasting glucose Osteoarthritis of both knees Overweight (BMI 25.0-29.9) Primary osteoarthritis, right shoulder Pure hypercholesterolemia Subdural hematoma Urothelial carcinoma of bladder Vitamin B12 deficiency Vitamin D deficiency Functional capacity: independent ambulation Family History Family History Father CVD (cardiovascular disease) Mother Hypertension Surgical History Surgical History History of shoulder surgery History of transurethral resection of prostate Social History Social History Household Members: Spouse Housing: House Do you presently have visiting nurse or other home services: No Alcohol intake: current Alcohol intake frequency: does not drink Alcohol type: wine Smoking Status: Former smoker Use of substances other than those prescribed or required for medical reasons: No Have you been hit, kicked, punched, or otherwise hurt by someone within the past year? If so, by whom?: No Do you feel safe in your current relationship?: Yes Is there a partner from a previous relationship who is making you feel unsafe now?: No Are you made to feel afraid or neglected: No [employer] Practices: Gnosticism Advance Directives: No Do you have thoughts of harming others: None Recently lost weight without trying: No service: Yes Meds Allergies Allergy/AdvReac Type Severity Reaction Status Date / Time No Known Allergies Allergy Mild N/A Verified 06/11/20 15:56 Active Medications: Current Medications Generic Name Dose Route Start Last Admin Trade Name Freq PRN Reason Stop Dose Admin Acetaminophen 650 mg 07/04/20 00:35 Acetaminophen 325 Mg Tablet PO Q6H PRN Pain, Mild (Pain Scale 1-3) Atorvastatin Calcium 80 mg 07/04/20 21:00 Atorvastatin Calcium 80 Mg Tablet PO BEDTIME [facility] Cyanocobalamin 1,000 mcg 07/04/20 09:00 07/04/20 09:56 Cyanocobalamin (Vitamin B-12) 1,000 Mcg Tablet PO Not Given DAILY [facility] Docusate Sodium 100 mg 07/04/20 00:35 Docusate Sodium 100 Mg Capsule PO DAILY PRN Constipation Ezetimibe 10 mg 07/04/20 09:00 07/04/20 09:56 Ezetimibe 10 Mg Tablet PO Not Given DAILY [facility] Escitalopram Oxalate 20 mg 07/04/20 09:00 07/04/20 09:56 Escitalopram Oxalate 20 Mg Tablet PO 20 mg DAILY [facility] Administration Gabapentin 300 mg 07/04/20 09:00 07/04/20 09:56 Gabapentin 300 Mg Capsule PO 300 mg BID [facility] Administration Latanoprost 1 drop 07/04/20 21:00 Latanoprost 0.005 % Ophth [place] 2.5 Ml Drops EYE-BOTH BEDTIME [facility] Lisinopril 20 mg 07/04/20 09:00 07/04/20 09:56 Lisinopril 20 Mg Tablet PO 20 mg DAILY [facility] Administration Protocol Metoprolol Tartrate 25 mg 07/04/20 09:00 07/04/20 09:56 Metoprolol Tartrate 25 Mg Tablet PO 25 mg BID [facility] Administration Protocol Mirtazapine 7.5 mg 07/04/20 21:00 Mirtazapine 7.5 Mg Tablet PO BEDTIME [facility] Morphine Sulfate 4 mg 07/04/20 00:35 07/04/20 10:34 Morphine Sulfate 4 Mg/Ml Cartridge IVPUSH 4 mg Q4H PRN Administration Pain, Severe (Pain Scale 7-10) Ondansetron HCl 4 mg 07/04/20 00:35 Ondansetron Hcl 4 Mg/2 Ml Vial IVPUSH Q8H PRN Nausea and Vomiting Pharmacy Consult 1 each 07/03/20 21:09 Consult Rx Perform Med Rec MISCELLANE ONCE PRN Consult order Sodium Chloride 3 ml 07/04/20 00:35 07/04/20 08:32 0.9 % Sodium Chloride Flush 3 Ml Syringe IVFLUSH 3 ml QSHIFT [facility] Administration Tramadol HCl 50 mg 07/04/20 00:44 Tramadol Hcl 50 Mg Tablet PO BEDTIME PRN Pain, Severe (Pain Scale 7-10) Vitamin D 250 mcg 07/04/20 09:00 07/04/20 09:56 Cholecalciferol (Vitamin D3) 25 Mcg Tablet PO Not Given DAILY [facility] Home Medications Medication Instructions Recorded Confirmed Last Taken Type aspirin 81 mg tablet,delayed 81 mg PO DAILY 03/25/20 07/03/20 07/03/20 History release atorvastatin 80 mg tablet 80 mg PO BEDTIME 03/25/20 07/03/20 07/02/20 History ezetimibe 10 mg tablet 10 mg PO DAILY 03/25/20 07/03/20 07/03/20 History cholecalciferol (vitamin D3) 250 mcg PO DAILY 07/03/20 07/03/20 07/03/20 History [Vitamin D3] cyanocobalamin (vitamin B-12) 1,000 mcg PO DAILY 07/03/20 07/03/20 07/03/20 History gabapentin 300 mg PO BID 07/03/20 07/03/20 07/03/20 History latanoprost 1 drp OPHTHALMIC (EYE) BEDTIME 07/03/20 07/03/20 07/02/20 History tramadol 50 mg PO BEDTIME 07/03/20 07/03/20 07/02/20 History vitamins A,C,M-ikli-lrzhpz 1 tab PO BID 07/03/20 07/03/20 07/03/20 History [PreserVision AREDS] Physical Exam Vital Signs: Vital Signs: Last Vital Signs Temp 97.6 F 07/04/20 11:16 Pulse 74 07/04/20 09:56 Resp 18 07/04/20 11:16 BP 136/61 07/04/20 09:56 Pulse Ox 96 07/04/20 09:53 Body Mass Index 27.3 Const: General: cooperative, comfortable and no acute distress Orientation/consciousness: patient oriented x3 HENMT: Other: Unremarkable Neck: Neck: Yes normal visual inspection Chest: Chest palpation & inspection: normal inspection of the chest Resp: Auscultation: clear to auscultation bilaterally, no crackles and no wheezes Cardio: Jugular venous distension: no JVD Palpation: normal PMI Heart sounds: S1 normal heart sound present, S2 normal heart sound present, no gallops, Murmur heart sound present systolic III/ and at the right sternal border and no rubs GI: Palpation (GI): Soft to palpation Back/Spine/Pelvis: Other: unremarkable Skin: General skin exam: no rashes or lesions noted Neuro: General: patient oriented x3 Extrem: General: Yes no clubbing, cyanosis or edema Psych: Mental Status: mental status grossly normal Results Labs and Meds Result diagrams: 07/04/20 06:19 07/04/20 06:19 Lab results: Laboratory Results - last 24 hr 07/04/20 07/04/20 07/04/20 00:05 00:05 00:05 WBC 16.1 H RBC 3.20 L Hgb 10.6 L Hct 33.2 L MCV 103.8 H MCH 33.1 H MCHC 31.9 RDW 13.0 Plt Count 211 D MPV 10.1 Immature Gran % (Auto) 0.4 Neut % (Auto) 69.8 Lymph % (Auto) 16.1 L [place] % (Auto) 11.3 H Eos % (Auto) 1.9 Baso % (Auto) 0.5 Lymph # (Auto) 2.6 [place] # (Auto) 1.8 H Eos # (Auto) 0.3 Baso # (Auto) 0.1 Abs Immat Gran (auto) 0.07 H Absolute Neuts (auto) 11.2 H Absolute Nucleated RBC 0.000 Nucleated RBC % (auto) 0.0 Smear Tech's Comments VERIFIED Hold Blue Top SEE NOTE Sodium 142 Potassium 5.1 Chloride 110 H Carbon Dioxide 24 Anion Gap 13 BUN 27 H Creatinine 1.44 H Estim Creat Clear Calc TNP Estimated GFR 47 Random Glucose 131 H Calcium 9.3 D Urine Color Urine Appearance Urine pH Ur Specific [place] Urine Protein Urine Glucose (UA) Urine Ketones Urine Blood Urine Nitrite Ur Leukocyte Esterase Urine RBC Urine WBC Ur Squamous Epith Cells Urine Bacteria COVID-19 (LIDA) COVID-19 Clin Com Blood Type Antibody Screen 07/04/20 07/04/20 07/04/20 00:05 00:44 06:19 WBC 12.5 H RBC 2.91 L Hgb 9.6 L Hct 30.3 L MCV 104.1 H MCH 33.0 MCHC 31.7 RDW 12.9 Plt Count 157 L D MPV 10.5 Immature Gran % (Auto) 0.5 H Neut % (Auto) 76.0 H Lymph % (Auto) 11.6 L [place] % (Auto) 11.2 H Eos % (Auto) 0.2 Baso % (Auto) 0.5 Lymph # (Auto) 1.5 [place] # (Auto) 1.4 H Eos # (Auto) 0.0 Baso # (Auto) 0.1 Abs Immat Gran (auto) 0.06 H Absolute Neuts (auto) 9.5 H Absolute Nucleated RBC 0.000 Nucleated RBC % (auto) 0.0 Smear Tech's Comments Hold Blue Top Sodium Potassium Chloride Carbon Dioxide Anion Gap BUN Creatinine Estim Creat Clear Calc Estimated GFR Random Glucose Calcium Urine Color YELLOW Urine Appearance CLEAR Urine pH 5.5 Ur Specific [place] >= 1.030 H Urine Protein NEG Urine Glucose (UA) NEG Urine Ketones NEG Urine Blood TRACE Urine Nitrite NEG Ur Leukocyte Esterase NEG Urine RBC 5-9 H Urine WBC 1-4 Ur Squamous Epith Cells 1+ Urine Bacteria 3+ COVID-19 (LIDA) Negative COVID-19 Clin Com See Note Blood Type Antibody Screen 07/04/20 07/04/20 06:19 09:28 WBC RBC Hgb Hct MCV MCH MCHC RDW Plt Count MPV Immature Gran % (Auto) Neut % (Auto) Lymph % (Auto) [place] % (Auto) Eos % (Auto) Baso % (Auto) Lymph # (Auto) [place] # (Auto) Eos # (Auto) Baso # (Auto) Abs Immat Gran (auto) Absolute Neuts (auto) Absolute Nucleated RBC Nucleated RBC % (auto) Smear Tech's Comments Hold Blue Top Sodium 141 Potassium 4.7 Chloride 109 H Carbon Dioxide 20 L Anion Gap 17 BUN 27 H Creatinine 1.31 Estim Creat Clear Calc TNP Estimated GFR 52 Random Glucose 124 H Calcium 8.8 Urine Color Urine Appearance Urine pH Ur Specific [place] Urine Protein Urine Glucose (UA) Urine Ketones Urine Blood Urine Nitrite Ur Leukocyte Esterase Urine RBC Urine WBC Ur Squamous Epith Cells Urine Bacteria COVID-19 (LIDA) COVID-19 Clin Com Blood Type A Negative Antibody Screen NEGATIVE ECG Attestation: I personally reviewed and interpreted this ECG as follows: Interpretation: EKG with sinus rhythm and no acute changes. Imaging Radiologist's impression: Impressions Hip/Pelvis X-Ray 07/03/20 19:21 IMPRESSION: Intratrochanteric fracture of the right femur Chest X-Ray 07/03/20 21:05 IMPRESSION: Chronic appearing changes but no acute process. Assessment and Plan (1) Preoperative cardiovascular examination: Status: Acute (2) Non-rheumatic aortic stenosis: Status: Acute (3) Atherosclerotic cardiovascular disease: Status: Acute (4) Cerebral infarction: Qualifiers: Cerebral infarction mechanism: unspecified mechanism Qualified Code(s): I63.9 - Cerebral infarction, unspecified Status: Acute Printed radiology reports in chart- prominent vascular calcifications; CT head with chronic infarcts. Exam has aortic stenosis murmur. High likelihood of underlying CAD. Bedside echo very poor quality as he would not co-operate- LVEF appears grossly ok; probable moderate, but could not assess well. Cardiac risk is intermediate to high. Discussed with and she understand.
--- NOTE | 2020-07-04 13:18 | HO.ANESPROP2 ---
Documented by User: Antonia Woods 07/04/20 13:24 [facility] Active Problems Active Problems: All Active Problems (Updated 07/04/20 @ 12:52 by Ramin Marino MD) Cerebral infarction (Acute) Atherosclerotic cardiovascular disease (Acute) Non-rheumatic aortic stenosis (Acute) Preoperative cardiovascular examination (Acute) Closed hip fracture (Acute) Fall (Acute) Overweight (BMI 25.0-29.9) (Acute) Depression (Acute) Urothelial carcinoma of bladder (Acute) Vitamin B12 deficiency (Acute) Vitamin D deficiency (Acute) GERD without esophagitis (Acute) Anemia (Acute) Primary osteoarthritis, right shoulder (Acute) Osteoarthritis of both knees (Acute) Chronic kidney disease, stage III (moderate) (Acute) Impaired fasting glucose (Acute) Elevated liver enzymes (Acute) Benign essential hypertension (Acute) Pure hypercholesterolemia (Acute) Coronary artery disease (Acute) Past Medical History Medical History Anemia Benign essential hypertension Chronic kidney disease, stage III (moderate) Coronary artery disease Depression Elevated liver enzymes GERD without esophagitis Impaired fasting glucose Osteoarthritis of both knees Overweight (BMI 25.0-29.9) Primary osteoarthritis, right shoulder Pure hypercholesterolemia Subdural hematoma Urothelial carcinoma of bladder Vitamin B12 deficiency Vitamin D deficiency Functional capacity: independent ambulation Family History Family History Father CVD (cardiovascular disease) Mother Hypertension Surgical History Surgical History History of shoulder surgery History of transurethral resection of prostate Social History Social History Household Members: Spouse Housing: House Do you presently have visiting nurse or other home services: No Alcohol intake: current Alcohol intake frequency: does not drink Alcohol type: wine Smoking Status: Former smoker Use of substances other than those prescribed or required for medical reasons: No Have you been hit, kicked, punched, or otherwise hurt by someone within the past year? If so, by whom?: No Do you feel safe in your current relationship?: Yes Is there a partner from a previous relationship who is making you feel unsafe now?: No Are you made to feel afraid or neglected: No Taoism Healthcare Practices: Nondenominational Advance Directives: No Do you have thoughts of harming others: None Recently lost weight without trying: No service: Yes Meds Allergies Allergy/AdvReac Type Severity Reaction Status Date / Time No Known Allergies Allergy Mild N/A Verified 06/11/20 15:56 Active Medications: Current Medications Generic Name Dose Route Start Last Admin Trade Name Freq PRN Reason Stop Dose Admin Acetaminophen 650 mg 07/04/20 00:35 Acetaminophen 325 Mg Tablet PO Q6H PRN Pain, Mild (Pain Scale 1-3) Atorvastatin Calcium 80 mg 07/04/20 21:00 Atorvastatin Calcium 80 Mg Tablet PO BEDTIME IDANIA Cyanocobalamin 1,000 mcg 07/04/20 09:00 07/04/20 09:56 Cyanocobalamin (Vitamin B-12) 1,000 Mcg Tablet PO Not Given DAILY IDANIA Docusate Sodium 100 mg 07/04/20 00:35 Docusate Sodium 100 Mg Capsule PO DAILY PRN Constipation Ezetimibe 10 mg 07/04/20 09:00 07/04/20 09:56 Ezetimibe 10 Mg Tablet PO Not Given DAILY [facility] Escitalopram Oxalate 20 mg 07/04/20 09:00 07/04/20 09:56 Escitalopram Oxalate 20 Mg Tablet PO 20 mg DAILY IDANIA Administration Gabapentin 300 mg 07/04/20 09:00 07/04/20 09:56 Gabapentin 300 Mg Capsule PO 300 mg BID IDANIA Administration Latanoprost 1 drop 07/04/20 21:00 Latanoprost 0.005 % Ophth Lolita 2.5 Ml Drops EYE-BOTH BEDTIME IDANIA Lisinopril 20 mg 07/04/20 09:00 07/04/20 09:56 Lisinopril 20 Mg Tablet PO 20 mg DAILY IDANIA Administration Protocol Metoprolol Tartrate 25 mg 07/04/20 09:00 07/04/20 09:56 Metoprolol Tartrate 25 Mg Tablet PO 25 mg BID IDANIA Administration Protocol Mirtazapine 7.5 mg 07/04/20 21:00 Mirtazapine 7.5 Mg Tablet PO BEDTIME IDANIA Morphine Sulfate 4 mg 07/04/20 00:35 07/04/20 10:34 Morphine Sulfate 4 Mg/Ml Cartridge IVPUSH 4 mg Q4H PRN Administration Pain, Severe (Pain Scale 7-10) Ondansetron HCl 4 mg 07/04/20 00:35 Ondansetron Hcl 4 Mg/2 Ml Vial IVPUSH Q8H PRN Nausea and Vomiting Pharmacy Consult 1 each 07/03/20 21:09 Consult Rx Perform Med Rec MISCELLANE ONCE PRN Consult order Sodium Chloride 3 ml 07/04/20 00:35 07/04/20 08:32 0.9 % Sodium Chloride Flush 3 Ml Syringe IVFLUSH 3 ml QSHIFT IDANIA Administration Tramadol HCl 50 mg 07/04/20 00:44 Tramadol Hcl 50 Mg Tablet PO BEDTIME PRN Pain, Severe (Pain Scale 7-10) Vitamin D 250 mcg 07/04/20 09:00 07/04/20 09:56 Cholecalciferol (Vitamin D3) 25 Mcg Tablet PO Not Given DAILY [facility] Home Medications Medication Instructions Recorded Confirmed Last Taken Type aspirin 81 mg tablet,delayed 81 mg PO DAILY 03/25/20 07/03/20 07/03/20 History release atorvastatin 80 mg tablet 80 mg PO BEDTIME 03/25/20 07/03/20 07/02/20 History ezetimibe 10 mg tablet 10 mg PO DAILY 03/25/20 07/03/20 07/03/20 History cholecalciferol (vitamin D3) 250 mcg PO DAILY 07/03/20 07/03/20 07/03/20 History [Vitamin D3] cyanocobalamin (vitamin B-12) 1,000 mcg PO DAILY 07/03/20 07/03/20 07/03/20 History gabapentin 300 mg PO BID 07/03/20 07/03/20 07/03/20 History latanoprost 1 drp OPHTHALMIC (EYE) BEDTIME 07/03/20 07/03/20 07/02/20 History tramadol 50 mg PO BEDTIME 07/03/20 07/03/20 07/02/20 History vitamins A,C,T-novg-panmth 1 tab PO BID 07/03/20 07/03/20 07/03/20 History [PreserVision AREDS] Exam Exam Date and Time: July 04, 2020 1318 Height,Weight and Vital Signs: Height 5 ft 7 in Weight 79.379 kg Last Vital Signs Temp 97.6 F 07/04/20 11:16 Pulse 74 07/04/20 09:56 Resp 18 07/04/20 11:16 BP 136/61 07/04/20 09:56 Pulse Ox 96 07/04/20 09:53 Pertinent Lab Results Pertinent Lab Results: Laboratory Tests 07/04/20 07/04/20 07/04/20 00:05 00:05 00:05 WBC 16.1 H RBC 3.20 L Hgb 10.6 L Hct 33.2 L MCV 103.8 H MCH 33.1 H MCHC 31.9 RDW 13.0 Plt Count 211 D MPV 10.1 Immature Gran % (Auto) 0.4 Neut % (Auto) 69.8 Lymph % (Auto) 16.1 L [place] % (Auto) 11.3 H Eos % (Auto) 1.9 Baso % (Auto) 0.5 Lymph # (Auto) 2.6 [place] # (Auto) 1.8 H Eos # (Auto) 0.3 Baso # (Auto) 0.1 Abs Immat Gran (auto) 0.07 H Absolute Neuts (auto) 11.2 H Absolute Nucleated RBC 0.000 Nucleated RBC % (auto) 0.0 Smear Tech's Comments VERIFIED Hold Blue Top SEE NOTE Sodium 142 Potassium 5.1 Chloride 110 H Carbon Dioxide 24 Anion Gap 13 BUN 27 H Creatinine 1.44 H Estim Creat Clear Calc TNP Estimated GFR 47 Random Glucose 131 H Calcium 9.3 D Urine Color Urine Appearance Urine pH Ur Specific [place] Urine Protein Urine Glucose (UA) Urine Ketones Urine Blood Urine Nitrite Ur Leukocyte Esterase Urine RBC Urine WBC Ur Squamous Epith Cells Urine Bacteria COVID-19 (LIDA) COVID-19 Clin Com Blood Type Antibody Screen 07/04/20 07/04/20 07/04/20 00:05 00:44 06:19 WBC 12.5 H RBC 2.91 L Hgb 9.6 L Hct 30.3 L MCV 104.1 H MCH 33.0 MCHC 31.7 RDW 12.9 Plt Count 157 L D MPV 10.5 Immature Gran % (Auto) 0.5 H Neut % (Auto) 76.0 H Lymph % (Auto) 11.6 L [place] % (Auto) 11.2 H Eos % (Auto) 0.2 Baso % (Auto) 0.5 Lymph # (Auto) 1.5 [place] # (Auto) 1.4 H Eos # (Auto) 0.0 Baso # (Auto) 0.1 Abs Immat Gran (auto) 0.06 H Absolute Neuts (auto) 9.5 H Absolute Nucleated RBC 0.000 Nucleated RBC % (auto) 0.0 Smear Tech's Comments Hold Blue Top Sodium Potassium Chloride Carbon Dioxide Anion Gap BUN Creatinine Estim Creat Clear Calc Estimated GFR Random Glucose Calcium Urine Color YELLOW Urine Appearance CLEAR Urine pH 5.5 Ur Specific [place] >= 1.030 H Urine Protein NEG Urine Glucose (UA) NEG Urine Ketones NEG Urine Blood TRACE Urine Nitrite NEG Ur Leukocyte Esterase NEG Urine RBC 5-9 H Urine WBC 1-4 Ur Squamous Epith Cells 1+ Urine Bacteria 3+ COVID-19 (LIDA) Negative COVID-19 Clin Com See Note Blood Type Antibody Screen 07/04/20 07/04/20 06:19 09:28 WBC RBC Hgb Hct MCV MCH MCHC RDW Plt Count MPV Immature Gran % (Auto) Neut % (Auto) Lymph % (Auto) [place] % (Auto) Eos % (Auto) Baso % (Auto) Lymph # (Auto) [place] # (Auto) Eos # (Auto) Baso # (Auto) Abs Immat Gran (auto) Absolute Neuts (auto) Absolute Nucleated RBC Nucleated RBC % (auto) Smear Tech's Comments Hold Blue Top Sodium 141 Potassium 4.7 Chloride 109 H Carbon Dioxide 20 L Anion Gap 17 BUN 27 H Creatinine 1.31 Estim Creat Clear Calc TNP Estimated GFR 52 Random Glucose 124 H Calcium 8.8 Urine Color Urine Appearance Urine pH Ur Specific [place] Urine Protein Urine Glucose (UA) Urine Ketones Urine Blood Urine Nitrite Ur Leukocyte Esterase Urine RBC Urine WBC Ur Squamous Epith Cells Urine Bacteria COVID-19 (LIDA) COVID-19 Clin Com Blood Type A Negative Antibody Screen NEGATIVE Documented by User: Jenny Navarro 07/04/20 13:36 [facility] Past Medical History Medical History Anemia Benign essential hypertension Chronic kidney disease, stage III (moderate) Coronary artery disease Depression Elevated liver enzymes GERD without esophagitis Impaired fasting glucose Osteoarthritis of both knees Overweight (BMI 25.0-29.9) Primary osteoarthritis, right shoulder Pure hypercholesterolemia Subdural hematoma Urothelial carcinoma of bladder Vitamin B12 deficiency Vitamin D deficiency Family History Family History Father CVD (cardiovascular disease) Mother Hypertension Surgical History Surgical History History of shoulder surgery History of transurethral resection of prostate Social History Social History Household Members: Spouse Housing: House Do you presently have visiting nurse or other home services: No Alcohol intake: current Alcohol intake frequency: does not drink Alcohol type: wine Smoking Status: Former smoker Use of substances other than those prescribed or required for medical reasons: No Have you been hit, kicked, punched, or otherwise hurt by someone within the past year? If so, by whom?: No Do you feel safe in your current relationship?: Yes Is there a partner from a previous relationship who is making you feel unsafe now?: No Are you made to feel afraid or neglected: No Taoism Healthcare Practices: Nondenominational Advance Directives: No Do you have thoughts of harming others: None Recently lost weight without trying: No service: Yes Meds Allergies Allergy/AdvReac Type Severity Reaction Status Date / Time No Known Allergies Allergy Mild N/A Verified 06/11/20 15:56 Home Medications Medication Instructions Recorded Confirmed Last Taken Type aspirin 81 mg tablet,delayed 81 mg PO DAILY 03/25/20 07/03/20 07/03/20 History release atorvastatin 80 mg tablet 80 mg PO BEDTIME 03/25/20 07/03/20 07/02/20 History ezetimibe 10 mg tablet 10 mg PO DAILY 03/25/20 07/03/20 07/03/20 History cholecalciferol (vitamin D3) 250 mcg PO DAILY 07/03/20 07/03/20 07/03/20 History [Vitamin D3] cyanocobalamin (vitamin B-12) 1,000 mcg PO DAILY 07/03/20 07/03/20 07/03/20 History gabapentin 300 mg PO BID 07/03/20 07/03/20 07/03/20 History latanoprost 1 drp OPHTHALMIC (EYE) BEDTIME 07/03/20 07/03/20 07/02/20 History tramadol 50 mg PO BEDTIME 07/03/20 07/03/20 07/02/20 History vitamins A,C,U-fzlj-shpffw 1 tab PO BID 07/03/20 07/03/20 07/03/20 History [PreserVision AREDS] Exam Airway Mallampati Class: II TM Dist: >3cm Neck ROM: Full Denture: Upper Partial: Lower Heart: RrR Lungs: diminished Assessment and Plan Assessment Anesthesia Assessment: Anesthesia Plan Discussed and Chart Reviewed Final Anesthetic Review NPO: Yes ASA Class: IV and Emergency Final Preanesthetic Review: No Changes in Pt Med Stat and Consent Obtained/Reviewed Patient Risk: High Procedure Risk: Intermediate Anesthetic Plan Anesthetic Plan: GA Disposition: Standard PACU
--- NOTE | 2020-07-04 13:22 | P.PNIM_ITS ---
Subjective Subjective Date of Service: 07/04/20 <DARIANA Ghosh - Last Filed: 07/04/20 13:51> 07/04/20 <Nato Watts MD - Last Filed: 07/04/20 15:35> Interval History: f/u right femur fracture History of dementia, confused at baseline, most history obtained from at bedside No complaints at this time. Right leg pain under adequate control <DARIANA Ghosh - Last Filed: 07/04/20 13:51> Review of Systems Review of Systems: Yes all other systems are reviewed and are negative <DARIANA Ghosh - Last Filed: 07/04/20 13:51> Constitutional Constitutional: Denies chills and Denies fever(s) <DARIANA Ghosh - Last Filed: 07/04/20 13:51> Cardiovascular Cardiovascular: Denies chest pain <DARIANA Ghosh - Last Filed: 07/04/20 13:51> Respiratory Respiratory: Denies cough <DARIANA Ghosh - Last Filed: 07/04/20 13:51> Gastrointestinal Gastrointestinal: Denies abdominal pain <DARIANA Ghosh - Last Filed: 07/04/20 13:51> Neurologic Neurologic: Reports confusion <DARIANA Ghosh - Last Filed: 07/04/20 13:51> Psychiatric Psychiatric: Reports confusion <DARIANA Ghosh - Last Filed: 07/04/20 13:51> Physical Exam Vital Signs: Vital Signs: Last Vital Signs Temp 97.6 F 07/04/20 11:16 Pulse 74 07/04/20 09:56 Resp 18 07/04/20 11:16 BP 136/61 07/04/20 09:56 Pulse Ox 96 07/04/20 09:53 Body Mass Index 27.3 <DARIANA Ghosh - Last Filed: 07/04/20 13:51> Const: General: alert, awake and confusion <DARIANA Ghosh - Last Filed: 07/04/20 13:51> Nutritional Appearance: well nourished <DARIANA Ghosh - Last Filed: 07/04/20 13:51> Orientation/consciousness: confusion <DARIANA Ghosh Last Filed: 07/04/20 13:51> HENMT: Head: Yes normocephalic and Yes atraumatic <DARIANA Ghosh - Last Filed: 07/04/20 13:51> Eyes: Sclerae: sclerae normal <DARIANA Ghosh - Last Filed: 07/04/20 13:51> Resp: Effort & Inspection: normal respiratory effort and no respiratory distress <DARIANA Ghosh Last Filed: 07/04/20 13:51> Auscultation: clear to auscultation bilaterally <DARIANA hGosh - Last Filed: 07/04/20 13:51> Cardio: Rate: regular rate <DARIANA Ghosh - Last Filed: 07/04/20 13:51> Rhythm: regular rhythm <DARIANA Ghosh - Last Filed: 07/04/20 13:51> Heart sounds: Murmur heart sound present <DARIANA Ghosh Last Filed: 07/04/20 13:51> GI: Palpation (GI): Soft to palpation and nontender <DARIANA Ghosh - Last Filed: 07/04/20 13:51> Skin: General skin exam: no rashes or lesions noted <DARIANA Ghosh - Last Filed: 07/04/20 13:51> Neuro: General: confusion <DARIANA Ghosh - Last Filed: 07/04/20 13:51> Cranial nerves: Yes CN's II-XII intact bilaterally and Yes Bilaterally intact EOM present <DARIANA Ghosh - Last Filed: 07/04/20 13:51> Extrem: Other: RLE shortened and ER <DARIANA Ghosh - Last Filed: 07/04/20 13:51> Objective Data Current Medications Generic Name Dose Route Start Last Admin Trade Name Freq PRN Reason Stop Dose Admin Acetaminophen 650 mg 07/04/20 00:35 Acetaminophen 325 Mg Tablet PO Q6H PRN Pain, Mild (Pain Scale 1-3) Atorvastatin Calcium 80 mg 07/04/20 21:00 Atorvastatin Calcium 80 Mg Tablet PO BEDTIME IDANIA Cyanocobalamin 1,000 mcg 07/04/20 09:00 07/04/20 09:56 Cyanocobalamin (Vitamin B-12) 1,000 Mcg Tablet PO Not Given DAILY [facility] Docusate Sodium 100 mg 07/04/20 00:35 Docusate Sodium 100 Mg Capsule PO DAILY PRN Constipation Ezetimibe 10 mg 07/04/20 09:00 07/04/20 09:56 Ezetimibe 10 Mg Tablet PO Not Given DAILY [facility] Escitalopram Oxalate 20 mg 07/04/20 09:00 07/04/20 09:56 Escitalopram Oxalate 20 Mg Tablet PO 20 mg DAILY [facility] Administration Gabapentin 300 mg 07/04/20 09:00 07/04/20 09:56 Gabapentin 300 Mg Capsule PO 300 mg BID [facility] Administration Latanoprost 1 drop 07/04/20 21:00 Latanoprost 0.005 % Ophth Lolita 2.5 Ml Drops EYE-BOTH BEDTIME [facility] Lisinopril 20 mg 07/04/20 09:00 07/04/20 09:56 Lisinopril 20 Mg Tablet PO 20 mg DAILY [facility] Administration Protocol Metoprolol Tartrate 25 mg 07/04/20 09:00 07/04/20 09:56 Metoprolol Tartrate 25 Mg Tablet PO 25 mg BID [facility] Administration Protocol Mirtazapine 7.5 mg 07/04/20 21:00 Mirtazapine 7.5 Mg Tablet PO BEDTIME [facility] Morphine Sulfate 4 mg 07/04/20 00:35 07/04/20 10:34 Morphine Sulfate 4 Mg/Ml Cartridge IVPUSH 4 mg Q4H PRN Administration Pain, Severe (Pain Scale 7-10) Ondansetron HCl 4 mg 07/04/20 00:35 Ondansetron Hcl 4 Mg/2 Ml Vial IVPUSH Q8H PRN Nausea and Vomiting Pharmacy Consult 1 each 07/03/20 21:09 Consult Rx Perform Med Rec MISCELLANE ONCE PRN Consult order Sodium Chloride 3 ml 07/04/20 00:35 07/04/20 08:32 0.9 % Sodium Chloride Flush 3 Ml Syringe IVFLUSH 3 ml QSHIFT [facility] Administration Tramadol HCl 50 mg 07/04/20 00:44 Tramadol Hcl 50 Mg Tablet PO BEDTIME PRN Pain, Severe (Pain Scale 7-10) Vitamin D 250 mcg 07/04/20 09:00 07/04/20 09:56 Cholecalciferol (Vitamin D3) 25 Mcg Tablet PO Not Given DAILY IDANIA <DARIANA Ghosh - Last Filed: 07/04/20 13:51> Labs CBC & Chem 7: : 07/04/20 06:19 07/04/20 06:19 <DARIANA Ghosh - Last Filed: 07/04/20 13:51> Assessment and Plan (1) Closed hip fracture: Status: Acute <DARIANA Ghosh - Last Filed: 07/04/20 13:51> Assessment and Plan: This is a 84-year-old male with past medical history of HTN, HLD, osteoarthritis who presents to the hospital after a fall found to have right intertrochanteric femur fracture Right intertrochanteric femur fracture secondary to mechanical fall Seen by Ortho, plan for surgical fixation today Seen by Cardiology moderate to high risk for surgery. This was discussed with at the bedside - pain control - NPO fall mechanical - PT eval after surgery CKD At baseline HTN Blood pressure controlled -continue lisinopril, metoprolol HLD - continue Zetia, statin Dementia alert but confused at baseline Continue mirtazapine Mood Continue Lexapro h/o night terrors DVT prophylaxis: SCDs Code status-dnr/dni Disposition- SNF when medically stable with likely transition to long-term care <DARIANA Ghosh - Last Filed: 07/04/20 13:51> Attending Attestation: Patient seen and examined independently and I was present during [place] portion of E/M service. Agree with DARIANA Avery's history, physical, assessment, and plan. Intermediate to high risk. bedside, explained the plan in detail. Per RN report -- pt drinking 3/4 to 1 bottle of wine daily. Monitor with CIWA and if needed start pheno post-operatively. <Nato Watts MD - Last Filed: 07/04/20 15:35>
--- NOTE | 2020-07-04 13:25 | PC.NURSE ---
ECHO COMPLETED AT BEDSIDE PRIOR TO PROCEDURE. PATIENT WAS A LITTLE COMBATIVE WHEN HE FIRST ARRIVED BUT IS CALM AT THIS TIME.
--- NOTE | 2020-07-04 13:51 | MHC.SHP ---
Pre-Procedural Eval Section A The patient is an INPATIENT: Yes Changes since office visit: Yes Patient answered all questions; No Cold of Flu in the past 2 weeks, No New Medical Problems and No Changes in Medication The History & Physical has been completed within 30 days and I have reviewed it.: No Section B Chief Complaint: R HIP FRAX Allergies: Allergies Allergy/AdvReac Type Severity Reaction Status Date / Time No Known Allergies Allergy Mild N/A Verified 06/11/20 15:56 Plan Diagnosis/Plan: Unchanged I have reviewed the history and physical and performed a pertinent physical examination on my patient. No changes have occurred unless specified. I discussed the risks and benefits of surgery with the patient. He was seen and cleared by cardiology but risk exists and that risk includes the risk of . The benefits of surgery outweight the risks in my opinion and the of the patient agrees. She signed the consent form.
--- NOTE | 2020-07-04 14:46 | PM.OP ---
Brief Operative Note Date of Service: 07/04/20 Pre-op diagnosis: right hip fracture Post-op diagnosis: same Procedure: right hip imn Implants: maddie [id number] 125 deg, 110mm hip screw and 40 mm distal interlock Surgeon: Stalin Caraballo MD Anesthesia: GETA and local Estimated blood loss (mL): 100 IV fluids (mL): 600 Pathology: none sent Condition: stable Disposition: PACU
--- NOTE | 2020-07-04 14:50 | W.PM.OPN ---
Operative Note Operative Note Date of Service: 07/04/20 Narrative: Pre-op diagnosis: right hip fracture Post-op diagnosis: same Procedure: right hip imn Implants: maddie [id number] 125 deg, 110mm hip screw and 40 mm distal interlock Surgeon: Stalin Caraballo MD Anesthesia: GETA and local Estimated blood loss (mL): 100 IV fluids (mL): 600 Pathology: none sent Condition: stable Disposition: PACU Indications: 84 yo with a basicervical/IT right hip fracture. Hiw was consented to undergo operative treatment Procedure in detail: Patient was brought to the operating room and prepped and draped in standard sterile fashion. Time-out was called to identify proper site procedure proper surgeon and IV antibiotics per weight were administered. She was positioned on the fracture table and a traction and slight internal rotation were performed and biplanar fluoroscopy confirmed initial fracture reduction. I then made a stab incision proximal to the greater trochanter in using a guidewire made a entry point just lateral to the tip of the greater trochanter and placed a guidewire into the femoral metadiaphysis. I then over-reamed with 15 mm Reamer placed my ball-tip guidewire down distally in the femur and measured my length. I selected a _340 mm___ nail and reamed up to a 13. I then placed the nail. I then turned my attention to the hip screw where I used a guidewire and a tip apex distance of less than 1.5 measured a 110mm hip screw. I then pre drilled and placed a hip screw using biplanar fluoroscopy. Once I was happy with the position of the hip screw I turned my attention to the distal aspect of the nail. Using perfect [place] technique I placed 1 static distal interlocking screw in standard AO technique. I then removed all I then placed my set screw proximally and removed all extraneous instrumentation. Final biplanar radiographs were taken. I was happy with the position of the hardware and the fracture reduction. I think copiously irrigated closed with absorbable sutures marshall and injected 30 mL of into the area of the incisions. Traction was let down patient was placed in sterile dressing awakened from anesthesia brought to recovery room stable condition there were no known complications.
[2020-07-04] MEDS: Lactated Ringers 500 ML 80 ML IVCONT (19:59)
[2020-07-04] MEDS: ceFAZolin Sodium/Dextrose,Iso 2 GM/50 ML PIGGYBACK IV (20:00)
[2020-07-05] VITALS (13 sets, daily range): BP systolic 102–142; BP diastolic 52–66; PULSE 67–91; RESP 18–24; TEMP 36.8–37.7; O2SAT 91–99
--- NOTE | 2020-07-05 06:06 | PM.EVENT ---
Event Note Date of Service: 07/05/20 Event Note: Pt urine output low. Not eating or drinking. will start his on IVF until oral intake improves
[2020-07-05] MEDS: Lactated Ringers 1,000 ML 100 ML IVCONT (06:48)
[2020-07-05 07:11] LABS: Basophils Absolute Auto 0.1 X10*3/uL (0.0-0.2); Basophils Percent Auto 0.4 % (0-2); Eosinophils Absolute Auto 0.1 X10*3/uL (0.0-0.4); Eosinophils Percent Auto 0.4 % (0-4); Hematocrit 23.2 % (42-52); Hemoglobin 7.5 g/dl (14.0-18.0); Imm Gran Abs Auto 0.08 X10*3/uL (0.00-0.03); Imm Gran Pct Auto 0.7 % (0.0-0.4); Lymphocytes Absolute Auto 1.5 X10*3/uL (1.2-4.9); Lymphocytes Percent Auto 12.9 % (20-40); MANUAL DIFF FLAG SCAN; Mean Corpuscular HGB Conc 32.3 g/dl (31.0-36.0); Mean Corpuscular Hemoglobin 33.8 pg (27.0-33.0); Mean Corpuscular Volume 104.5 fL (80-98); Mean Platelet Volume 10.6 fL (9.4-12.4); Monocytes Absolute Auto 1.8 X10*3/uL (0.1-1.2); Monocytes Percent Auto 15.7 % (2-11); Neutrophils Absolute Auto 7.9 X10*3/uL (2.0-8.3); Neutrophils Percent Auto 69.9 % (45-73); Platelet Count 143 X10*3/uL (160-400); Red Blood Count 2.22 X10*6/uL (4.60-5.80); Red Cell Distribution Width 13.7 % (11.0-16.0); SCAN SMEAR FLAG 1; White Blood Count 11.4 X10*3/uL (4.8-10.8)
[2020-07-05 07:55] LABS: Anion Gap 15 (12-20); Blood Urea Nitrogen 39 mg/dL (9-16); Calcium 7.8 mg/dL (8.4-10.2); Carbon Dioxide 21 mmol/L (22-29); Chloride 109 mmol/L (96-108); Creatinine Clr Calc Pharmacy 29.4; Estimated Glomerular Filt Rate 34; Glucose Random 151 mg/dL (60-115); Potassium 4.7 mmol/L (3.3-5.1); Sodium 140 mmol/L (135-145)
[2020-07-05 07:56] LABS: SLIDE REVIEW VERIFIED
[2020-07-05] MEDS: Ezetimibe 10 MG TABLET PO (09:04)
[2020-07-05] MEDS: Gabapentin 300 MG CAPSULE PO ×2 (09:05→20:20)
[2020-07-05] MEDS: Metoprolol Tartrate 25 MG TABLET PO ×2 (09:05→20:20)
[2020-07-05] MEDS: lisinopriL 20 MG TABLET PO (09:05)
[2020-07-05] MEDS: Cyanocobalamin (Vitamin B-12) 1,000 MCG TABLET 1000 MCG PO (09:06)
[2020-07-05] MEDS: Cholecalciferol (Vitamin D3) 25 MCG TABLET 250 MCG PO (09:06)
[2020-07-05] MEDS: Escitalopram Oxalate 20 MG TABLET PO (09:06)
--- NOTE | 2020-07-05 09:25 | PM.PNORT ---
Subjective Subjective Date of Service: 07/05/20 Interval history: POD1 s/p right hip IM Nail with Dr. Caraballo. Patient is resting comfortably in bed. He is confused at his normal baseline. Pain is well managed. No overnight events. Physical Exam Vital Signs: Vital Signs: Last Vital Signs Temp 98.5 F 07/05/20 07:39 Pulse 91 07/05/20 09:05 Resp 24 H 07/05/20 07:39 BP 113/52 L 07/05/20 09:05 Pulse Ox 91 L 07/05/20 07:39 Body Mass Index 27.3 Const: General: cooperative, healthy appearing and no acute distress Resp: Effort & Inspection: normal respiratory effort and able to speak in complete sentences Cardio: Rate: regular rate Peripheral pulses: Peripheral pulses 2+ throughout GI: Palpation (GI): Soft to palpation Skin: Lesions: no lesions Rashes: no rashes Extrem: Other: Right hip bandages are clean, dry, and intact. No ecchymosis, redness, or drainage. Sensation intact. Able to plantar and dorsiflex. Progress Note: A&P Assessment and plan (1) Closed hip fracture: Status: Acute Assessment and Plan: Continue pain mgmnt Begin Lovenox for dvt ppx begin PT for Right hip IMN, WBAT Dispo planning-Pending PT eval, pain mgmnt Fall Risk Details Current Medications: Current Medications Generic Name Dose Route Start Last Admin Trade Name Freq PRN Reason Stop Dose Admin Acetaminophen 650 mg 07/04/20 00:35 Acetaminophen 325 Mg Tablet PO Q6H PRN Pain, Mild (Pain Scale 1-3) Atorvastatin Calcium 80 mg 07/04/20 21:00 07/04/20 21:25 Atorvastatin Calcium 80 Mg Tablet PO Not Given BEDTIME [facility] Cyanocobalamin 1,000 mcg 07/04/20 09:00 07/05/20 09:06 Cyanocobalamin (Vitamin B-12) 1,000 Mcg Tablet PO 1,000 mcg DAILY [facility] Administration Docusate Sodium 100 mg 07/04/20 00:35 Docusate Sodium 100 Mg Capsule PO DAILY PRN Constipation Ezetimibe 10 mg 07/04/20 09:00 07/05/20 09:04 Ezetimibe 10 Mg Tablet PO 10 mg DAILY [facility] Administration Escitalopram Oxalate 20 mg 07/04/20 09:00 07/05/20 09:06 Escitalopram Oxalate 20 Mg Tablet PO 20 mg DAILY [facility] Administration Gabapentin 300 mg 07/04/20 09:00 07/05/20 09:05 Gabapentin 300 Mg Capsule PO 300 mg BID [facility] Administration Lactated Ringer's 1,000 mls @ 100 mls/hr 07/05/20 06:15 07/05/20 06:48 Lr IVCONT 100 mls/hr .Q10H [facility] Administration Latanoprost 1 drop 07/04/20 21:00 07/04/20 21:44 Latanoprost 0.005 % Ophth Lolita 2.5 Ml Drops EYE-BOTH Not Given BEDTIME [facility] Lisinopril 20 mg 07/04/20 09:00 07/05/20 09:05 Lisinopril 20 Mg Tablet PO 20 mg DAILY [facility] Administration Protocol Metoprolol Tartrate 25 mg 07/04/20 09:00 07/05/20 09:05 Metoprolol Tartrate 25 Mg Tablet PO 25 mg BID [facility] Administration Protocol Mirtazapine 7.5 mg 07/04/20 21:00 07/04/20 21:26 Mirtazapine 7.5 Mg Tablet PO Not Given BEDTIME [facility] Morphine Sulfate 4 mg 07/04/20 00:35 07/04/20 10:34 Morphine Sulfate 4 Mg/Ml Cartridge IVPUSH 4 mg Q4H PRN Administration Pain, Severe (Pain Scale 7-10) Ondansetron HCl 4 mg 07/04/20 00:35 Ondansetron Hcl 4 Mg/2 Ml Vial IVPUSH Q8H PRN Nausea and Vomiting Pharmacy Consult 1 each 07/03/20 21:09 Consult Rx Perform Med Rec MISCELLANE ONCE PRN Consult order Sodium Chloride 3 ml 07/04/20 00:35 07/05/20 09:12 0.9 % Sodium Chloride Flush 3 Ml Syringe IVFLUSH Not Given QSHIFT [facility] Tramadol HCl 50 mg 07/04/20 00:44 Tramadol Hcl 50 Mg Tablet PO BEDTIME PRN Pain, Severe (Pain Scale 7-10) Vitamin D 250 mcg 07/04/20 09:00 07/05/20 09:06 Cholecalciferol (Vitamin D3) 25 Mcg Tablet PO 250 mcg DAILY [facility] Administration Time Spent With Patient Time: Total time spent is greater than 50% in coordination of care (as documented) at patient's floor/unit and/or counseling patient: Time with patient: less than 15 minutes
--- NOTE | 2020-07-05 13:04 | HO.PM.IMPN ---
Subjective Subjective Date of Service: 07/05/20 <DARIANA Ghosh - Last Filed: 07/05/20 13:32> 07/05/20 <Marcia Tillman MD - Last Filed: 07/05/20 15:20> Interval History: follow up hip fracture appears tired but awake and alert this morning, at baseline mental status, asking to eat no complaints this morning <DARIANA Ghosh - Last Filed: 07/05/20 13:32> Review of Systems Review of Systems: Yes all other systems are reviewed and are negative <DARINAA Ghosh - Last Filed: 07/05/20 13:32> Constitutional Constitutional: Denies chills and Denies fever(s) <DARIANA Ghosh - Last Filed: 07/05/20 13:32> Cardiovascular Cardiovascular: Denies chest pain <DARIANA Ghosh - Last Filed: 07/05/20 13:32> Respiratory Respiratory: Denies cough <DARIANA Ghosh - Last Filed: 07/05/20 13:32> Gastrointestinal Gastrointestinal: Denies abdominal pain <DARIANA Ghosh - Last Filed: 07/05/20 13:32> Physical Exam Vital Signs: Vital Signs: Last Vital Signs Temp 99.1 F 07/05/20 12:00 Pulse 77 07/05/20 12:00 Resp 20 07/05/20 12:00 BP 110/53 L 07/05/20 12:00 Pulse Ox 95 07/05/20 12:00 Body Mass Index 27.3 <DARIANA Ghosh - Last Filed: 07/05/20 13:32> Const: Other: appears tired, but awake and alert, confused - at baseline mentation <DARIANA Ghosh - Last Filed: 07/05/20 13:32> Eyes: General: appearance normal, both eyes and all related structures <DARIANA Ghosh - Last Filed: 07/05/20 13:32> Chest: Chest palpation & inspection: normal inspection of the chest <DARIANA Ghosh - Last Filed: 07/05/20 13:32> Resp: Effort & Inspection: normal respiratory effort, able to speak in complete sentences, no respiratory distress and no use of accessory muscles <DARIANA Ghosh Last Filed: 07/05/20 13:32> Cardio: Rate: regular rate <DARIANA Ghosh Last Filed: 07/05/20 13:32> Rhythm: regular rhythm <DARIANA Ghosh Last Filed: 07/05/20 13:32> Heart sounds: Murmur heart sound present <DARIANA Ghosh Last Filed: 07/05/20 13:32> GI: Inspection: No distended <DARIANA Ghosh Last Filed: 07/05/20 13:32> Palpation (GI): Soft to palpation and nontender <DARIANA Ghosh Last Filed: 07/05/20 13:32> : Other: mcpherson present <DARIANA Ghosh Last Filed: 07/05/20 13:32> Extrem: Other: compression boots in place, mild staining to right hip bandage <DARIANA Ghosh Last Filed: 07/05/20 13:32> Objective Data Current Medications Generic Name Dose Route Start Last Admin Trade Name Freq PRN Reason Stop Dose Admin Acetaminophen 650 mg 07/04/20 00:35 Acetaminophen 325 Mg Tablet PO Q6H PRN Pain, Mild (Pain Scale 1-3) Atorvastatin Calcium 80 mg 07/04/20 21:00 07/04/20 21:25 Atorvastatin Calcium 80 Mg Tablet PO Not Given BEDTIME [facility] Cyanocobalamin 1,000 mcg 07/04/20 09:00 07/05/20 09:06 Cyanocobalamin (Vitamin B-12) 1,000 Mcg Tablet PO 1,000 mcg DAILY [facility] Administration Docusate Sodium 100 mg 07/04/20 00:35 Docusate Sodium 100 Mg Capsule PO DAILY PRN Constipation Ezetimibe 10 mg 07/04/20 09:00 07/05/20 09:04 Ezetimibe 10 Mg Tablet PO 10 mg DAILY [facility] Administration Enoxaparin Sodium 30 mg 07/05/20 13:00 Enoxaparin Sodium 30 Mg/0.3 Ml Syringe SUBCUT Q24H [facility] Escitalopram Oxalate 20 mg 07/04/20 09:00 07/05/20 09:06 Escitalopram Oxalate 20 Mg Tablet PO 20 mg DAILY [facility] Administration Gabapentin 300 mg 07/04/20 09:00 07/05/20 09:05 Gabapentin 300 Mg Capsule PO 300 mg BID [facility] Administration Latanoprost 1 drop 07/04/20 21:00 07/04/20 21:44 Latanoprost 0.005 % Ophth Lolita 2.5 Ml Drops EYE-BOTH Not Given BEDTIME [facility] Lisinopril 20 mg 07/04/20 09:00 07/05/20 09:05 Lisinopril 20 Mg Tablet PO 20 mg DAILY [facility] Administration Protocol Metoprolol Tartrate 25 mg 07/04/20 09:00 07/05/20 09:05 Metoprolol Tartrate 25 Mg Tablet PO 25 mg BID [facility] Administration Protocol Mirtazapine 7.5 mg 07/04/20 21:00 07/04/20 21:26 Mirtazapine 7.5 Mg Tablet PO Not Given BEDTIME [facility] Morphine Sulfate 4 mg 07/04/20 00:35 07/04/20 10:34 Morphine Sulfate 4 Mg/Ml Cartridge IVPUSH 4 mg Q4H PRN Administration Pain, Severe (Pain Scale 7-10) Ondansetron HCl 4 mg 07/04/20 00:35 Ondansetron Hcl 4 Mg/2 Ml Vial IVPUSH Q8H PRN Nausea and Vomiting Pharmacy Consult 1 each 07/03/20 21:09 Consult Rx Perform Med Rec MISCELLANE ONCE PRN Consult order Sodium Chloride 3 ml 07/04/20 00:35 07/05/20 09:12 0.9 % Sodium Chloride Flush 3 Ml Syringe IVFLUSH Not Given QSHIFT [facility] Tramadol HCl 50 mg 07/04/20 00:44 Tramadol Hcl 50 Mg Tablet PO BEDTIME PRN Pain, Severe (Pain Scale 7-10) Vitamin D 250 mcg 07/04/20 09:00 07/05/20 09:06 Cholecalciferol (Vitamin D3) 25 Mcg Tablet PO 250 mcg DAILY [facility] Administration <DARIANA Ghosh - Last Filed: 07/05/20 13:32> Labs CBC & Chem 7: : 07/05/20 06:11 07/05/20 06:11 <DARIANA Ghosh - Last Filed: 07/05/20 13:32> Assessment and Plan (1) Closed hip fracture: Status: Acute <DARIANA Ghosh - Last Filed: 07/05/20 13:32> Assessment and Plan: This is a 84-year-old male with past medical history of HTN, HLD, osteoarthritis who presents to the hospital after a fall found to have right intertrochanteric femur fracture POD #1 s/p IMN for Right intertrochanteric femur fracture secondary to mechanical fall. seen by cardiology preoperatively. - continue pain control - orthopedic team following - PT/OT, DVT ppx per ortho Acute blood loss anemia H/H down to 7.5/23.2 in the setting of recent surgery -will transfuse 2U rbc -follow CBC fall mechanical - PT eval after surgery, per ortho protocol OLEG on CKD3 SCr up to 1.92 from 1.31 -hold lisinopril -received IVF, will d/c while receiving blood to avoid fluid overload HTN Blood pressure controlled -continue metoprolol -hold lisinopril for OLEG -follow blood pressure closely h/o daily etoh use no evidence of withdrawal -continue to follow CIWA for now, no need for phenobarbital at this time HLD - continue Zetia, statin Dementia alert but confused at baseline Continue mirtazapine Mood Continue Lexapro h/o night terrors DVT prophylaxis: started on Lovenox per orthopedic service Code status-dnr/dni HCP - Michelle [phone] Disposition- SNF when medically stable with likely transition to long-term care <DARIANA Ghosh - Last Filed: 07/05/20 13:32>
[2020-07-05] MEDS: Enoxaparin Sodium 30 MG/0.3 ML SYRINGE SUBCUT (13:44)
--- NOTE | 2020-07-05 13:56 | HO.POSTANES ---
Post Anesthesia Evaluation Post Anesthesia Evaluation Vital Signs: Vital Signs Temp Pulse Resp BP Pulse Ox 07/05/20 12:00 99.1 F 77 20 110/53 L 95 07/05/20 11:58 91 113/52 L 07/05/20 09:05 91 113/52 L 07/05/20 07:39 98.5 F 91 24 H 113/52 L 91 L 07/05/20 03:47 99.7 F 76 18 111/56 L 94 Anesthesia: General LMA Mental Status: Awake Pain Control: Satisfactory Nausea/Vomiting: None Hydration: Adequate Anesthesia-Related Issues: No Anes. Related Issues
[2020-07-05] MEDS: Morphine Sulfate 4 MG/ML CARTRIDGE IVPUSH (16:04)
[2020-07-05] MEDS: Mirtazapine 7.5 MG TABLET PO (20:20)
[2020-07-05] MEDS: Atorvastatin Calcium 80 MG TABLET PO (20:20)
[2020-07-06] VITALS (11 sets, daily range): BP systolic 102–126; BP diastolic 53–70; PULSE 67–80; RESP 16–20; TEMP 36.7–37.8; O2SAT 93–100
[2020-07-06 07:05] LABS: Basophils Absolute Auto 0.1 X10*3/uL (0.0-0.2); Basophils Percent Auto 0.5 % (0-2); Eosinophils Absolute Auto 0.4 X10*3/uL (0.0-0.4); Eosinophils Percent Auto 3.1 % (0-4); Hematocrit 27.9 % (42-52); Hemoglobin 9.1 g/dl (14.0-18.0); Imm Gran Abs Auto 0.07 X10*3/uL (0.00-0.03); Imm Gran Pct Auto 0.6 % (0.0-0.4); Lymphocytes Absolute Auto 2.2 X10*3/uL (1.2-4.9); Lymphocytes Percent Auto 19.4 % (20-40); MANUAL DIFF FLAG SCAN; Mean Corpuscular HGB Conc 32.6 g/dl (31.0-36.0); Mean Corpuscular Hemoglobin 32.7 pg (27.0-33.0); Mean Platelet Volume 10.6 fL (9.4-12.4); Monocytes Absolute Auto 1.8 X10*3/uL (0.1-1.2); Monocytes Percent Auto 15.6 % (2-11); Neutrophils Percent Auto 60.8 % (45-73); Platelet Count 128 X10*3/uL (160-400); Red Blood Count 2.78 X10*6/uL (4.60-5.80); Red Cell Distribution Width 15.8 % (11.0-16.0); SCAN SMEAR FLAG 1; White Blood Count 11.5 X10*3/uL (4.8-10.8)
[2020-07-06 07:16] LABS: Anion Gap 16 (12-20); Blood Urea Nitrogen 48 mg/dL (9-16); Calcium 7.9 mg/dL (8.4-10.2); Carbon Dioxide 22 mmol/L (22-29); Chloride 108 mmol/L (96-108); Creatinine Clr Calc Pharmacy 28.2; Estimated Glomerular Filt Rate 32; Glucose Random 96 mg/dL (60-115); Potassium 4.5 mmol/L (3.3-5.1); Sodium 141 mmol/L (135-145)
--- NOTE | 2020-07-06 07:29 | PM.PNORT ---
Subjective Subjective Date of Service: 07/06/20 Interval history: POD2 s/p right hip IM Nail. Patient is resting comfortably in bed. He is confused but this is his normal baseline. Pain is well managed. No overnight events. Physical Exam Vital Signs: Vital Signs: Last Vital Signs Temp 98.9 F 07/06/20 03:33 Pulse 71 07/06/20 03:33 Resp 18 07/06/20 03:33 BP 111/62 07/06/20 03:33 Pulse Ox 100 07/06/20 03:33 Body Mass Index 27.3 Const: General: cooperative, healthy appearing and no acute distress Resp: Effort & Inspection: normal respiratory effort and able to speak in complete sentences Cardio: Rate: regular rate Peripheral pulses: Peripheral pulses 2+ throughout GI: Palpation (GI): Soft to palpation Skin: Lesions: no lesions Rashes: no rashes Extrem: Other: Right hip no ecchymosis, redness, or drainage. Dressings are clean, dry, and intact. NVI. Progress Note: A&P Assessment and plan (1) Closed hip fracture: Status: Acute Assessment and Plan: Continue pain mgmnt Continue to monitor H/H s/p transfusion of 2 units of PRBCs Continue Lovenox for dvt ppx Continue PT for right hip IM Nail Dispo planning-Pending PT eval, pain mgmnt Fall Risk Details Current Medications: Current Medications Generic Name Dose Route Start Last Admin Trade Name Freq PRN Reason Stop Dose Admin Acetaminophen 650 mg 07/04/20 00:35 Acetaminophen 325 Mg Tablet PO Q6H PRN Pain, Mild (Pain Scale 1-3) Atorvastatin Calcium 80 mg 07/04/20 21:00 07/05/20 20:20 Atorvastatin Calcium 80 Mg Tablet PO 80 mg BEDTIME [facility] Administration Cyanocobalamin 1,000 mcg 07/04/20 09:00 07/05/20 09:06 Cyanocobalamin (Vitamin B-12) 1,000 Mcg Tablet PO 1,000 mcg DAILY [facility]ANIA Administration Docusate Sodium 100 mg 07/04/20 00:35 Docusate Sodium 100 Mg Capsule PO DAILY PRN Constipation Ezetimibe 10 mg 07/04/20 09:00 07/05/20 09:04 Ezetimibe 10 Mg Tablet PO 10 mg DAILY [facility]AN[facility] Administration Enoxaparin Sodium 30 mg 07/05/20 13:00 07/05/20 13:44 Enoxaparin Sodium 30 Mg/0.3 Ml Syringe SUBCUT 30 mg Q24H [facility] Administration Escitalopram Oxalate 20 mg 07/04/20 09:00 07/05/20 09:06 Escitalopram Oxalate 20 Mg Tablet PO 20 mg DAILY [facility] Administration Gabapentin 300 mg 07/04/20 09:00 07/05/20 20:20 Gabapentin 300 Mg Capsule PO 300 mg BID [facility] Administration Latanoprost 1 drop 07/04/20 21:00 07/05/20 20:25 Latanoprost 0.005 % Ophth Lolita 2.5 Ml Drops EYE-BOTH Not Given BEDTIME [facility] Lisinopril 20 mg 07/04/20 09:00 07/05/20 09:05 Lisinopril 20 Mg Tablet PO 20 mg DAILY [facility] Administration Protocol Metoprolol Tartrate 25 mg 07/04/20 09:00 07/05/20 20:20 Metoprolol Tartrate 25 Mg Tablet PO 25 mg BID [facility] Administration Protocol Mirtazapine 7.5 mg 07/04/20 21:00 07/05/20 20:20 Mirtazapine 7.5 Mg Tablet PO 7.5 mg BEDTIME [facility] Administration Morphine Sulfate 4 mg 07/04/20 00:35 07/05/20 16:04 Morphine Sulfate 4 Mg/Ml Cartridge IVPUSH 4 mg Q4H PRN Administration Pain, Severe (Pain Scale 7-10) Ondansetron HCl 4 mg 07/04/20 00:35 Ondansetron Hcl 4 Mg/2 Ml Vial IVPUSH Q8H PRN Nausea and Vomiting Pharmacy Consult 1 each 07/03/20 21:09 Consult Rx Perform Med Rec MISCELLANE ONCE PRN Consult order Sodium Chloride 3 ml 07/04/20 00:35 07/06/20 01:45 0.9 % Sodium Chloride Flush 3 Ml Syringe IVFLUSH Not Given QSHIFT [facility] Tramadol HCl 50 mg 07/04/20 00:44 Tramadol Hcl 50 Mg Tablet PO BEDTIME PRN Pain, Severe (Pain Scale 7-10) Vitamin D 250 mcg 07/04/20 09:00 07/05/20 09:06 Cholecalciferol (Vitamin D3) 25 Mcg Tablet PO 250 mcg DAILY [facility]ANIA Administration Time Spent With Patient Time: Total time spent is greater than 50% in coordination of care (as documented) at patient's floor/unit and/or counseling patient: Time with patient: less than 15 minutes
[2020-07-06 07:35] LABS: Mean Corpuscular Volume 100.4 fL (80-98)
[2020-07-06 07:53] LABS: SLIDE REVIEW VERIFIED
[2020-07-06] MEDS: 0.9 % Sodium Chloride Flush 3 ML SYRINGE IVFLUSH (08:28)
[2020-07-06] MEDS: Metoprolol Tartrate 25 MG TABLET PO ×2 (08:29→21:57)
[2020-07-06] MEDS: Escitalopram Oxalate 20 MG TABLET PO (08:29)
[2020-07-06] MEDS: Ezetimibe 10 MG TABLET PO (08:29)
[2020-07-06] MEDS: Cyanocobalamin (Vitamin B-12) 1,000 MCG TABLET 1000 MCG PO (08:30)
[2020-07-06] MEDS: Cholecalciferol (Vitamin D3) 25 MCG TABLET 250 MCG PO (08:31)
[2020-07-06] MEDS: Gabapentin 300 MG CAPSULE PO ×2 (08:39→21:58)
[2020-07-06] MEDS: Lactated Ringers 1,000 ML 80 ML IVCONT (10:13)
--- NOTE | 2020-07-06 12:21 | P.PNIM_ITS ---
Subjective Subjective Date of Service: 07/06/20 <DARIANA Ghosh - Last Filed: 07/06/20 12:28> 07/06/20 <Marcia Tillman MD - Last Filed: 07/06/20 15:17> Interval History: follow up femur fracture combative overnight per nurse sleepy this am <DARIANA Ghosh - Last Filed: 07/06/20 12:28> Review of Systems Review of Systems: Yes Unobtainable due to mental condition <DARIANA Ghosh - Last Filed: 07/06/20 12:28> Neurologic Neurologic: Reports confusion <DARIANA Ghosh - Last Filed: 07/06/20 12:28> Psychiatric Psychiatric: Reports confusion <DARIANA Ghosh - Last Filed: 07/06/20 12:28> Physical Exam Vital Signs: Vital Signs: Last Vital Signs Temp 98.9 F 07/06/20 11:50 Pulse 69 07/06/20 11:50 Resp 20 07/06/20 11:50 BP 124/55 L 07/06/20 11:50 Pulse Ox 93 07/06/20 11:50 Body Mass Index 27.3 <DARIANA Ghosh - Last Filed: 07/06/20 12:28> Const: Other: appears tired, but awake and alert, confused - at baseline mentation <DARIANA Ghosh - Last Filed: 07/06/20 12:28> General: alert, awake and confusion <DARIANA Ghosh - Last Filed: 07/06/20 12:28> Nutritional Appearance: well nourished <DARIANA Ghosh - Last Filed: 07/06/20 12:28> Orientation/consciousness: confusion <DARIANA Ghosh - Last Filed: 07/06/20 12:28> HENMT: Head: Yes normocephalic and Yes atraumatic <DARIANA Ghosh - Last Filed: 07/06/20 12:28> Eyes: General: appearance normal, both eyes and all related structures <DARIANA Ghosh - Last Filed: 07/06/20 12:28> Sclerae: sclerae normal <DARIANA Ghosh Last Filed: 07/06/20 12:28> Chest: Chest palpation & inspection: normal inspection of the chest <DARIANA Ghosh Last Filed: 07/06/20 12:28> Resp: Effort & Inspection: normal respiratory effort and no respiratory distress <DARIANA Ghosh Last Filed: 07/06/20 12:28> Auscultation: clear to auscultation bilaterally <DARIANA Ghosh - Last Filed: 07/06/20 12:28> Cardio: Rate: regular rate <DARIANA Ghosh - Last Filed: 07/06/20 12:28> Rhythm: regular rhythm <DARIANA Ghosh - Last Filed: 07/06/20 12:28> Heart sounds: Murmur heart sound present <DARIANA Ghosh Last Filed: 07/06/20 12:28> GI: Palpation (GI): Soft to palpation and nontender <DARIANA Ghosh - Last Filed: 07/06/20 12:28> : Other: mcpherson present <DARIANA Ghosh - Last Filed: 07/06/20 12: 28> Neuro: General: confusion <DARIANA Ghosh - Last Filed: 07/06/20 12:28> Cranial nerves: Yes CN's II-XII intact bilaterally and Yes Bilaterally intact EOM present <DARIANA Ghosh Last Filed: 07/06/20 12:28> Extrem: Other: compression boots in place <DARIANA Ghosh - Last Filed: 07/06/20 12:28> Objective Data Current Medications Generic Name Dose Route Start Last Admin Trade Name Freq PRN Reason Stop Dose Admin Acetaminophen 650 mg 07/04/20 00:35 Acetaminophen 325 Mg Tablet PO Q6H PRN Pain, Mild (Pain Scale 1-3) Atorvastatin Calcium 80 mg 07/04/20 21:00 07/05/20 20:20 Atorvastatin Calcium 80 Mg Tablet PO 80 mg BEDTIME [facility] Administration Cyanocobalamin 1,000 mcg 07/04/20 09:00 07/06/20 08:30 Cyanocobalamin (Vitamin B-12) 1,000 Mcg Tablet PO 1,000 mcg DAILY [facility] Administration Docusate Sodium 100 mg 07/04/20 00:35 Docusate Sodium 100 Mg Capsule PO DAILY PRN Constipation Ezetimibe 10 mg 07/04/20 09:00 07/06/20 08:29 Ezetimibe 10 Mg Tablet PO 10 mg DAILY [facility] Administration Enoxaparin Sodium 30 mg 07/05/20 13:00 07/05/20 13:44 Enoxaparin Sodium 30 Mg/0.3 Ml Syringe SUBCUT 30 mg Q24H [facility] Administration Escitalopram Oxalate 20 mg 07/04/20 09:00 07/06/20 08:29 Escitalopram Oxalate 20 Mg Tablet PO 20 mg DAILY [facility] Administration Gabapentin 300 mg 07/04/20 09:00 07/06/20 08:39 Gabapentin 300 Mg Capsule PO 300 mg BID [facility] Administration Lactated Ringer's 1,000 mls @ 80 mls/hr 07/06/20 08:30 07/06/20 10:13 Lr IVCONT 80 mls/hr .[id number] [facility] Administration Latanoprost 1 drop 07/04/20 21:00 07/05/20 20:25 Latanoprost 0.005 % Ophth Lolita 2.5 Ml Drops EYE-BOTH Not Given BEDTIME [facility] Lisinopril 20 mg 07/04/20 09:00 07/05/20 09:05 Lisinopril 20 Mg Tablet PO 20 mg DAILY [facility] Administration Protocol Metoprolol Tartrate 25 mg 07/04/20 09:00 07/06/20 08:29 Metoprolol Tartrate 25 Mg Tablet PO 25 mg BID [facility] Administration Protocol Mirtazapine 7.5 mg 07/04/20 21:00 07/05/20 20:20 Mirtazapine 7.5 Mg Tablet PO 7.5 mg BEDTIME [facility] Administration Morphine Sulfate 4 mg 07/04/20 00:35 07/05/20 16:04 Morphine Sulfate 4 Mg/Ml Cartridge IVPUSH 4 mg Q4H PRN Administration Pain, Severe (Pain Scale 7-10) Ondansetron HCl 4 mg 07/04/20 00:35 Ondansetron Hcl 4 Mg/2 Ml Vial IVPUSH Q8H PRN Nausea and Vomiting Pharmacy Consult 1 each 07/03/20 21:09 Consult Rx Perform Med Rec MISCELLANE ONCE PRN Consult order Sodium Chloride 3 ml 07/04/20 00:35 07/06/20 08:28 0.9 % Sodium Chloride Flush 3 Ml Syringe IVFLUSH 3 ml QSHIFT [facility] Administration Tramadol HCl 50 mg 07/04/20 00:44 Tramadol Hcl 50 Mg Tablet PO BEDTIME PRN Pain, Severe (Pain Scale 7-10) Vitamin D 250 mcg 07/04/20 09:00 07/06/20 08:31 Cholecalciferol (Vitamin D3) 25 Mcg Tablet PO 250 mcg DAILY [facility] Administration <DARIANA Ghosh - Last Filed: 07/06/20 12:28> Labs CBC & Chem 7: : 07/06/20 06:04 07/06/20 06:04 <DARIANA Ghosh - Last Filed: 07/06/20 12:28> Assessment and Plan (1) Closed hip fracture: Status: Acute <DARIANA Ghosh - Last Filed: 07/06/20 12:28> Assessment and Plan: This is a 84-year-old male with past medical history of HTN, HLD, osteoarthritis who presents to the hospital after a fall found to have right intertrochanteric femur fracture POD #2 s/p IMN for Right intertrochanteric femur fracture secondary to mechanical fall. seen by cardiology preoperatively. - continue pain control - orthopedic team following - PT/OT, DVT ppx per ortho Acute blood loss anemia H/H with appropriate rise following transfusion (2U 4/10) -follow CBC fall mechanical - PT eval after surgery, per ortho protocol OLEG on CKD3 SCr trending up -hold lisinopril -IVF -follow urine output HTN Blood pressure controlled -continue metoprolol -hold lisinopril for OLEG -follow blood pressure closely h/o daily etoh use no evidence of withdrawal -continue to follow CIWA for now, no need for phenobarbital at this time HLD - continue Zetia, statin Dementia alert but confused at baseline. high risk for delirium Continue mirtazapine -frequent re orientation; glasses on, hearing aids in -encourage PO intake, needs assistance with feeding Mood Continue Lexapro h/o night terrors DVT prophylaxis: started on Lovenox per orthopedic service Code status-dnr/dni HCP - Michelle [phone] Disposition- SNF when medically stable with likely transition to long-term care <DARIANA Ghosh - Last Filed: 07/06/20 12:28>
[2020-07-06] MEDS: Enoxaparin Sodium 30 MG/0.3 ML SYRINGE SUBCUT (13:59)
[2020-07-06] MEDS: Morphine Sulfate 4 MG/ML CARTRIDGE IVPUSH (17:39)
[2020-07-06] MEDS: Mirtazapine 7.5 MG TABLET PO (21:58)
[2020-07-06] MEDS: Atorvastatin Calcium 80 MG TABLET PO (21:58)
[2020-07-06] MEDS: Acetaminophen 325 MG TABLET 650 MG PO (21:58)
[2020-07-07] VITALS (9 sets, daily range): BP systolic 114–166; BP diastolic 58–74; PULSE 62–83; RESP 16–20; TEMP 36.6–37.3; O2SAT 90–98
[2020-07-07] MEDS: 0.9 % Sodium Chloride Flush 3 ML SYRINGE IVFLUSH ×3 (01:10→15:17)
[2020-07-07] MEDS: Lactated Ringers 1,000 ML 100 ML IVCONT (03:59)
[2020-07-07 06:55] LABS: Basophils Absolute Auto 0.1 X10*3/uL (0.0-0.2); Basophils Percent Auto 0.4 % (0-2); Eosinophils Absolute Auto 0.6 X10*3/uL (0.0-0.4); Eosinophils Percent Auto 4.9 % (0-4); Hematocrit 27.2 % (42-52); Hemoglobin 8.9 g/dl (14.0-18.0); Imm Gran Abs Auto 0.08 X10*3/uL (0.00-0.03); Imm Gran Pct Auto 0.7 % (0.0-0.4); Lymphocytes Absolute Auto 2.2 X10*3/uL (1.2-4.9); Lymphocytes Percent Auto 18.3 % (20-40); MANUAL DIFF FLAG SCAN; Mean Corpuscular HGB Conc 32.7 g/dl (31.0-36.0); Mean Corpuscular Hemoglobin 33.1 pg (27.0-33.0); Mean Corpuscular Volume 101.1 fL (80-98); Mean Platelet Volume 10.7 fL (9.4-12.4); Monocytes Absolute Auto 1.8 X10*3/uL (0.1-1.2); Monocytes Percent Auto 15.6 % (2-11); Neutrophils Absolute Auto 7.1 X10*3/uL (2.0-8.3); Neutrophils Percent Auto 60.1 % (45-73); Platelet Count 141 X10*3/uL (160-400); Red Blood Count 2.69 X10*6/uL (4.60-5.80); Red Cell Distribution Width 15.3 % (11.0-16.0); SCAN SMEAR FLAG 1; White Blood Count 11.7 X10*3/uL (4.8-10.8)
[2020-07-07 07:04] LABS: Anion Gap 14 (12-20); Blood Urea Nitrogen 48 mg/dL (9-16); Calcium 7.7 mg/dL (8.4-10.2); Carbon Dioxide 21 mmol/L (22-29); Chloride 106 mmol/L (96-108); Estimated Glomerular Filt Rate 38; Glucose Random 86 mg/dL (60-115); Potassium 4.3 mmol/L (3.3-5.1); Sodium 137 mmol/L (135-145)
[2020-07-07] MEDS: Cholecalciferol (Vitamin D3) 25 MCG TABLET 250 MCG PO (07:26)
[2020-07-07] MEDS: Cyanocobalamin (Vitamin B-12) 1,000 MCG TABLET 1000 MCG PO (07:27)
[2020-07-07] MEDS: Ezetimibe 10 MG TABLET PO (07:27)
[2020-07-07] MEDS: Gabapentin 300 MG CAPSULE PO ×2 (07:27→22:06)
[2020-07-07] MEDS: Metoprolol Tartrate 25 MG TABLET PO ×2 (07:27→22:06)
[2020-07-07] MEDS: Escitalopram Oxalate 20 MG TABLET PO (07:27)
[2020-07-07] MEDS: oxyCODONE HCl Immed Release 5 MG TABLET PO ×2 (07:27→13:31)
--- NOTE | 2020-07-07 07:33 | P.PNOP_ITS ---
Subjective Subjective Date of Service: 07/07/20 Interval history: POD3 s/p right hip IM Nail with Dr. Caraballo. Patient is resting comfortably in bed. He remains confused at baseline. No overnight events. Pain is well managed. Physical Exam Vital Signs: Vital Signs: Last Vital Signs Temp 97.9 F 07/07/20 04:00 Pulse 68 07/07/20 04:00 Resp 18 07/07/20 04:00 BP 129/60 07/07/20 04:00 Pulse Ox 96 07/07/20 04:00 Body Mass Index 27.3 Const: General: cooperative, healthy appearing and no acute distress Resp: Effort & Inspection: normal respiratory effort and able to speak in complete sentences Cardio: Rate: regular rate Peripheral pulses: Peripheral pulses 2+ throughout GI: Palpation (GI): Soft to palpation Skin: Lesions: no lesions Rashes: no rashes Extrem: Other: Right hip no ecchymosis, redness, drainage. Dressings are clean, dry, and intact. Patient is able to plantarflex and dorsiflex. Pedal pulse intact. Progress Note: A&P Assessment and plan (1) Closed hip fracture: Status: Acute Assessment and Plan: Continue pain mgmnt Continue Lovenox 30mg subq dvt ppx Continue PT for right hip IM Nail Monitor H/H Dispo planning-Pending PT eval, pain mgmnt Fall Risk Details Current Medications: Current Medications Generic Name Dose Route Start Last Admin Trade Name Freq PRN Reason Stop Dose Admin Acetaminophen 650 mg 07/04/20 00:35 07/06/20 21:58 Acetaminophen 325 Mg Tablet PO 650 mg Q6H PRN Administration Pain, Mild (Pain Scale 1-3) Atorvastatin Calcium 80 mg 07/04/20 21:00 07/06/20 21:58 Atorvastatin Calcium 80 Mg Tablet PO 80 mg BEDTIME [facility] Administration Cyanocobalamin 1,000 mcg 07/04/20 09:00 07/07/20 07:27 Cyanocobalamin (Vitamin B-12) 1,000 Mcg Tablet PO 1,000 mcg DAILY [facility] Administration Docusate Sodium 100 mg 07/04/20 00:35 Docusate Sodium 100 Mg Capsule PO DAILY PRN Constipation Ezetimibe 10 mg 07/04/20 09:00 07/07/20 07:27 Ezetimibe 10 Mg Tablet PO 10 mg DAILY [facility] Administration Enoxaparin Sodium 30 mg 07/05/20 13:00 07/06/20 13:59 Enoxaparin Sodium 30 Mg/0.3 Ml Syringe SUBCUT 30 mg Q24H [facility]ANIA Administration Escitalopram Oxalate 20 mg 07/04/20 09:00 07/07/20 07:27 Escitalopram Oxalate 20 Mg Tablet PO 20 mg DAILY [facility] Administration Gabapentin 300 mg 07/04/20 09:00 07/07/20 07:27 Gabapentin 300 Mg Capsule PO 300 mg BID [facility]AN[facility] Administration Lactated Ringer's 1,000 mls @ 100 mls/hr 07/06/20 08:30 07/07/20 03:59 Lr IVCONT 100 mls/hr .Q10H [facility] Administration Latanoprost 1 drop 07/04/20 21:00 07/06/20 22:54 Latanoprost 0.005 % Ophth Lolita 2.5 Ml Drops EYE-BOTH Not Given BEDTIME [facility] Lisinopril 20 mg 07/04/20 09:00 07/05/20 09:05 Lisinopril 20 Mg Tablet PO 20 mg DAILY [facility] Administration Protocol Metoprolol Tartrate 25 mg 07/04/20 09:00 07/07/20 07:27 Metoprolol Tartrate 25 Mg Tablet PO 25 mg BID [facility] Administration Protocol Mirtazapine 7.5 mg 07/04/20 21:00 07/06/20 21:58 Mirtazapine 7.5 Mg Tablet PO 7.5 mg BEDTIME [facility] Administration Morphine Sulfate 4 mg 07/04/20 00:35 07/06/20 17:39 Morphine Sulfate 4 Mg/Ml Cartridge IVPUSH 4 mg Q4H PRN Administration Pain, Severe (Pain Scale 7-10) Ondansetron HCl 4 mg 07/04/20 00:35 Ondansetron Hcl 4 Mg/2 Ml Vial IVPUSH Q8H PRN Nausea and Vomiting Oxycodone HCl 5 mg 07/07/20 07:00 07/07/20 07:27 Oxycodone Hcl Immed Release 5 Mg Tablet PO 5 mg Q6H PRN Administration Pain, Moderate (Pain Scale 4-6 Pharmacy Consult 1 each 07/03/20 21:09 Consult Rx Perform Med Rec MISCELLANE ONCE PRN Consult order Sodium Chloride 3 ml 07/04/20 00:35 07/07/20 07:22 0.9 % Sodium Chloride Flush 3 Ml Syringe IVFLUSH 3 ml QSHIFT [facility] Administration Tramadol HCl 50 mg 07/04/20 00:44 Tramadol Hcl 50 Mg Tablet PO BEDTIME PRN Pain, Severe (Pain Scale 7-10) Vitamin D 250 mcg 07/04/20 09:00 07/07/20 07:26 Cholecalciferol (Vitamin D3) 25 Mcg Tablet PO 250 mcg DAILY [facility] Administration Time Spent With Patient Time: Total time spent is greater than 50% in coordination of care (as documented) at patient's floor/unit and/or counseling patient: Time with patient: less than 15 minutes
[2020-07-07 07:50] LABS: SLIDE REVIEW VERIFIED
[2020-07-07 09:03] LABS: Folate 2.9 ng/mL (> or = 4.0); Vitamin B12 966 pg/mL (200-900)
--- NOTE | 2020-07-07 11:26 | P.PNIM_ITS ---
Subjective Subjective Date of Service: 07/07/20 Interval History: Follow up hip fracture secondary to a fall. Minimal pain. Physical Exam 2 Vital Signs: Vital Signs: Last Vital Signs Temp 98.0 F 07/07/20 08:00 Pulse 69 07/07/20 08:00 Resp 18 07/07/20 08:00 BP 144/65 H 07/07/20 08:00 Pulse Ox 96 07/07/20 08:00 Body Mass Index 27.3 Appearing in no acute distress lung sounds are clear to auscultation heart regular rate rhythm, clear S1, S2 positive bowel sounds, abdomen is soft, nontender neuro patient is alert x3, no focal deficits Right hip dressing clean, dry and intact Objective Data Current Medications Generic Name Dose Route Start Last Admin Trade Name Freq PRN Reason Stop Dose Admin Acetaminophen 650 mg 07/04/20 00:35 07/06/20 21:58 Acetaminophen 325 Mg Tablet PO 650 mg Q6H PRN Administration Pain, Mild (Pain Scale 1-3) Atorvastatin Calcium 80 mg 07/04/20 21:00 07/06/20 21:58 Atorvastatin Calcium 80 Mg Tablet PO 80 mg BEDTIME [facility] Administration Cyanocobalamin 1,000 mcg 07/04/20 09:00 07/07/20 07:27 Cyanocobalamin (Vitamin B-12) 1,000 Mcg Tablet PO 1,000 mcg DAILY [facility] Administration Docusate Sodium 100 mg 07/04/20 00:35 Docusate Sodium 100 Mg Capsule PO DAILY PRN Constipation Ezetimibe 10 mg 07/04/20 09:00 07/07/20 07:27 Ezetimibe 10 Mg Tablet PO 10 mg DAILY [facility] Administration Enoxaparin Sodium 30 mg 07/05/20 13:00 07/06/20 13:59 Enoxaparin Sodium 30 Mg/0.3 Ml Syringe SUBCUT 30 mg Q24H [facility] Administration Escitalopram Oxalate 20 mg 07/04/20 09:00 07/07/20 07:27 Escitalopram Oxalate 20 Mg Tablet PO 20 mg DAILY [facility] Administration Gabapentin 300 mg 07/04/20 09:00 07/07/20 07:27 Gabapentin 300 Mg Capsule PO 300 mg BID [facility] Administration Lactated Ringer's 1,000 mls @ 100 mls/hr 07/06/20 08:30 07/07/20 03:59 Lr IVCONT 100 mls/hr .Q10H [facility] Administration Latanoprost 1 drop 07/04/20 21:00 07/06/20 22:54 Latanoprost 0.005 % Ophth Lolita 2.5 Ml Drops EYE-BOTH Not Given BEDTIME [facility] Lisinopril 20 mg 07/04/20 09:00 07/05/20 09:05 Lisinopril 20 Mg Tablet PO 20 mg DAILY [facility] Administration Protocol Metoprolol Tartrate 25 mg 07/04/20 09:00 07/07/20 07:27 Metoprolol Tartrate 25 Mg Tablet PO 25 mg BID [facility] Administration Protocol Mirtazapine 7.5 mg 07/04/20 21:00 07/06/20 21:58 Mirtazapine 7.5 Mg Tablet PO 7.5 mg BEDTIME [facility] Administration Morphine Sulfate 4 mg 07/04/20 00:35 07/06/20 17:39 Morphine Sulfate 4 Mg/Ml Cartridge IVPUSH 4 mg Q4H PRN Administration Pain, Severe (Pain Scale 7-10) Ondansetron HCl 4 mg 07/04/20 00:35 Ondansetron Hcl 4 Mg/2 Ml Vial IVPUSH Q8H PRN Nausea and Vomiting Oxycodone HCl 5 mg 07/07/20 07:00 07/07/20 07:27 Oxycodone Hcl Immed Release 5 Mg Tablet PO 5 mg Q6H PRN Administration Pain, Moderate (Pain Scale 4-6 Pharmacy Consult 1 each 07/03/20 21:09 Consult Rx Perform Med Rec MISCELLANE ONCE PRN Consult order Sodium Chloride 3 ml 07/04/20 00:35 07/07/20 07:22 0.9 % Sodium Chloride Flush 3 Ml Syringe IVFLUSH 3 ml QSHIFT [facility] Administration Tramadol HCl 50 mg 07/04/20 00:44 Tramadol Hcl 50 Mg Tablet PO BEDTIME PRN Pain, Severe (Pain Scale 7-10) Vitamin D 250 mcg 07/04/20 09:00 07/07/20 07:26 Cholecalciferol (Vitamin D3) 25 Mcg Tablet PO 250 mcg DAILY [facility]AN[facility] Administration Labs CBC & Chem 7: 07/07/20 05:33 07/07/20 05:33 Assessment and Plan (1) Closed hip fracture: Status: Acute Assessment and Plan: This is a 84-year-old male with past medical history of HTN, HLD, osteoarthritis who presents to the hospital after a fall found to have right intertrochanteric femur fracture Right intertrochanteric femur fracture secondary to mechanical fall. POD #3 s/p IMN nailing. - continue pain control - orthopedic team following - PT/OT - Covid test OLEG on CKD3. SCr trending down -hold lisinopril -IVF -follow urine output Acute blood loss anemia. H/H with appropriate rise following transfusion (2U 07/05) -follow CBC HTN. Blood pressure controlled -continue metoprolol -hold lisinopril for OLEG -follow blood pressure closely h/o daily etoh use. no evidence of withdrawal -continue to follow CIWA for now, no need for phenobarbital at this time HLD - continue Zetia, statin Dementia. alert but confused at baseline. high risk for delirium -continue mirtazapine -frequent re orientation; glasses on, hearing aids in -encourage PO intake, needs assistance with feeding Depression -Continue Lexapro DVT prophylaxis: started on Lovenox 30mg per orthopedic service HCP - Michelle [phone] Disposition- SNF when medically stable with likely transition to long-term care
--- NOTE | 2020-07-07 11:58 | MHC.CM.ED ---
dc plan str requested 0t eval from md for possible [facility] acceptance which is pts first choice
[2020-07-07] MEDS: Enoxaparin Sodium 30 MG/0.3 ML SYRINGE SUBCUT (13:31)
[2020-07-07 18:13] LABS: COVID-19 Test Negative (Negative)
[2020-07-07] MEDS: Mirtazapine 7.5 MG TABLET PO (22:06)
[2020-07-07] MEDS: Latanoprost 0.005 % Ophth Sol 2.5 ML DROPS 1 DROP EYE-BOTH (22:06)
[2020-07-07] MEDS: Atorvastatin Calcium 80 MG TABLET PO (22:06)
[2020-07-08] MEDS: Lactated Ringers 1,000 ML 100 ML IVCONT ×2 (00:19→09:02)
[2020-07-08 04:00] VITALS: BP 135/66; PULSE 74; RESP 18; TEMP 36.8; O2SAT 94
[2020-07-08 06:51] LABS: MANUAL DIFF FLAG NO
[2020-07-08 06:57] LABS: Basophils Absolute Auto 0.1 X10*3/uL (0.0-0.2); Basophils Percent Auto 0.5 % (0-2); Eosinophils Absolute Auto 0.4 X10*3/uL (0.0-0.4); Eosinophils Percent Auto 4.3 % (0-4); Hematocrit 28.1 % (42-52); Hemoglobin 9.1 g/dl (14.0-18.0); Imm Gran Abs Auto 0.06 X10*3/uL (0.00-0.03); Imm Gran Pct Auto 0.6 % (0.0-0.4); Lymphocytes Absolute Auto 1.5 X10*3/uL (1.2-4.9); Lymphocytes Percent Auto 14.9 % (20-40); Mean Corpuscular HGB Conc 32.4 g/dl (31.0-36.0); Mean Corpuscular Hemoglobin 32.3 pg (27.0-33.0); Mean Corpuscular Volume 99.6 fL (80-98); Mean Platelet Volume 10.4 fL (9.4-12.4); Monocytes Absolute Auto 1.3 X10*3/uL (0.1-1.2); Monocytes Percent Auto 12.9 % (2-11); Neutrophils Absolute Auto 6.6 X10*3/uL (2.0-8.3); Neutrophils Percent Auto 66.8 % (45-73); Platelet Count 183 X10*3/uL (160-400); Red Blood Count 2.82 X10*6/uL (4.60-5.80); Red Cell Distribution Width 14.5 % (11.0-16.0); White Blood Count 9.8 X10*3/uL (4.8-10.8)
[2020-07-08 07:33] LABS: Anion Gap 13 (12-20); Blood Urea Nitrogen 44 mg/dL (9-16); Carbon Dioxide 24 mmol/L (22-29); Chloride 107 mmol/L (96-108); Creatinine Clr Calc Pharmacy 44.8; Estimated Glomerular Filt Rate 55; Glucose Random 103 mg/dL (60-115); Potassium 4.6 mmol/L (3.3-5.1); Sodium 139 mmol/L (135-145)
--- NOTE | 2020-07-08 07:41 | P.PNOP_ITS ---
Subjective Subjective Date of Service: 07/08/20 Interval history: POD4 status post right hip IM nail with Dr. Caraballo. Pain is well controlled. No overnight events. Physical Exam Vital Signs: Vital Signs: Last Vital Signs Temp 98.2 F 07/08/20 04:00 Pulse 74 07/08/20 04:00 Resp 18 07/08/20 04:00 BP 135/66 07/08/20 04:00 Pulse Ox 94 07/08/20 04:00 Body Mass Index 27.3 Const: General: cooperative, healthy appearing and no acute distress Resp: Effort & Inspection: normal respiratory effort and able to speak in comp lete sentences Cardio: Rate: regular rate Peripheral pulses: Peripheral pulses 2+ throughout GI: Palpation (GI): Soft to palpation Skin: Lesions: no lesions Rashes: no rashes Extrem: Other: Right hip no ecchymosis, redness, drainage. Bandages are clean dry and intact. NVI. Progress Note: A&P Assessment and plan (1) Closed hip fracture: Status: Acute Assessment and Plan: Continue pain mgmnt Continue Lovenox 30 mg subQ for dvt ppx Continue PT for right hip IM nail Dispo planning-Pending PT eval, pain mgmnt Fall Risk Details Current Medications: Current Medications Generic Name Dose Route Start Last Admin Trade Name Freq PRN Reason Stop Dose Admin Acetaminophen 650 mg 07/04/20 00:35 07/06/20 21:58 Acetaminophen 325 Mg Tablet PO 650 mg Q6H PRN Administration Pain, Mild (Pain Scale 1-3) Atorvastatin Calcium 80 mg 07/04/20 21:00 07/07/20 22:06 Atorvastatin Calcium 80 Mg Tablet PO 80 mg BEDTIME [facility] Administration Cyanocobalamin 1,000 mcg 07/04/20 09:00 07/07/20 07:27 Cyanocobalamin (Vitamin B-12) 1,000 Mcg Tablet PO 1,000 mcg DAILY [facility] Administration Docusate Sodium 100 mg 07/04/20 00:35 Docusate Sodium 100 Mg Capsule PO DAILY PRN Constipation Ezetimibe 10 mg 07/04/20 09:00 07/07/20 07:27 Ezetimibe 10 Mg Tablet PO 10 mg DAILY [facility] Administration Enoxaparin Sodium 30 mg 07/05/20 13:00 07/07/20 13:31 Enoxaparin Sodium 30 Mg/0.3 Ml Syringe SUBCUT 30 mg Q24H [facility] Administration Escitalopram Oxalate 20 mg 07/04/20 09:00 07/07/20 07:27 Escitalopram Oxalate 20 Mg Tablet PO 20 mg DAILY [facility] Administration Gabapentin 300 mg 07/04/20 09:00 07/07/20 22:06 Gabapentin 300 Mg Capsule PO 300 mg BID [facility] Administration Lactated Ringer's 1,000 mls @ 100 mls/hr 07/06/20 08:30 07/08/20 00:19 Lr IVCONT 100 mls/hr .Q10H [facility] Administration Latanoprost 1 drop 07/04/20 21:00 07/07/20 22:06 Latanoprost 0.005 % Ophth Lolita 2.5 Ml Drops EYE-BOTH 1 drop BEDTIME [facility] Administration Lisinopril 20 mg 07/04/20 09:00 07/05/20 09:05 Lisinopril 20 Mg Tablet PO 20 mg DAILY [facility] Administration Protocol Metoprolol Tartrate 25 mg 07/04/20 09:00 07/07/20 22:06 Metoprolol Tartrate 25 Mg Tablet PO 25 mg BID [facility] Administration Protocol Mirtazapine 7.5 mg 07/04/20 21:00 07/07/20 22:06 Mirtazapine 7.5 Mg Tablet PO 7.5 mg BEDTIME [facility]AN[facility] Administration Morphine Sulfate 4 mg 07/04/20 00:35 07/06/20 17:39 Morphine Sulfate 4 Mg/Ml Cartridge IVPUSH 4 mg Q4H PRN Administration Pain, Severe (Pain Scale 7-10) Ondansetron HCl 4 mg 07/04/20 00:35 Ondansetron Hcl 4 Mg/2 Ml Vial IVPUSH Q8H PRN Nausea and Vomiting Oxycodone HCl 5 mg 07/07/20 07:00 07/07/20 13:31 Oxycodone Hcl Immed Release 5 Mg Tablet PO 5 mg Q6H PRN Administration Pain, Moderate (Pain Scale 4-6 Pharmacy Consult 1 each 07/03/20 21:09 Consult Rx Perform Med Rec MISCELLANE ONCE PRN Consult order Sodium Chloride 3 ml 07/04/20 00:35 07/08/20 00:19 0.9 % Sodium Chloride Flush 3 Ml Syringe IVFLUSH Not Given QSHIFT [facility] Tramadol HCl 50 mg 07/04/20 00:44 Tramadol Hcl 50 Mg Tablet PO BEDTIME PRN Pain, Severe (Pain Scale 7-10) Vitamin D 250 mcg 07/04/20 09:00 07/07/20 07:26 Cholecalciferol (Vitamin D3) 25 Mcg Tablet PO 250 mcg DAILY [facility]AN[facility] Administration Time Spent With Patient Time: Total time spent is greater than 50% in coordination of care (as documented) at patient's floor/unit and/or counseling patient: Time with patient: less than 15 minutes
[2020-07-08 08:00] VITALS: BP 154/68; PULSE 76; RESP 18; TEMP 36.5; O2SAT 93
[2020-07-08 09:01] VITALS: BP 154/68; PULSE 76
[2020-07-08] MEDS: Escitalopram Oxalate 20 MG TABLET PO (09:01)
[2020-07-08] MEDS: Metoprolol Tartrate 25 MG TABLET PO (09:01)
[2020-07-08] MEDS: Gabapentin 300 MG CAPSULE PO (09:01)
[2020-07-08] MEDS: Cholecalciferol (Vitamin D3) 25 MCG TABLET 250 MCG PO (09:01)
[2020-07-08] MEDS: Cyanocobalamin (Vitamin B-12) 1,000 MCG TABLET 1000 MCG PO (09:01)
[2020-07-08] MEDS: Ezetimibe 10 MG TABLET PO (09:01)
[2020-07-08 11:54] VITALS: BP 142/65; PULSE 63; RESP 18; TEMP 36.3; O2SAT 98
[2020-07-08] MEDS: Enoxaparin Sodium 40 MG/0.4 ML SYRINGE SUBCUT (13:18)
--- NOTE | 2020-07-08 13:53 | P.PNIM_ITS ---
Subjective Subjective Date of Service: 07/08/20 <Makeda Cotto NP - Last Filed: 07/08/20 14:11> 07/08/20 <Nato Watts MD - Last Filed: 07/14/20 15:33> Interval History: Follow up femur fracture. Pain with movement. <Makeda Cotto NP - Last Filed: 07/08/20 14:11> Physical Exam Vital Signs: Vital Signs: Last Vital Signs Temp 97.4 F 07/08/20 11:54 Pulse 63 07/08/20 11:54 Resp 18 07/08/20 11:54 BP 142/65 H 07/08/20 11:54 Pulse Ox 98 07/08/20 11:54 Body Mass Index 27.3 <Makeda Cotto NP - Last Filed: 07/08/20 14:11> Appearing in no acute distress lung sounds are clear to auscultation heart regular rate rhythm, clear S1, S2 positive bowel sounds, abdomen is soft, nontender neuro patient is alert x3, no focal deficits Right hip dressing clean, dry and intact <Makeda Cotto NP - Last Filed: 07/08/20 14:11> Objective Data Current Medications Generic Name Dose Route Start Last Admin Trade Name Freq PRN Reason Stop Dose Admin Acetaminophen 650 mg 07/04/20 00:35 07/06/20 21:58 Acetaminophen 325 Mg Tablet PO 650 mg Q6H PRN Administration Pain, Mild (Pain Scale 1-3) Atorvastatin Calcium 80 mg 07/04/20 21:00 07/07/20 22:06 Atorvastatin Calcium 80 Mg Tablet PO 80 mg BEDTIME IDANIA Administration Cyanocobalamin 1,000 mcg 07/04/20 09:00 07/08/20 09:01 Cyanocobalamin (Vitamin B-12) 1,000 Mcg Tablet PO 1,000 mcg DAILY [facility] Administration Docusate Sodium 100 mg 07/04/20 00:35 Docusate Sodium 100 Mg Capsule PO DAILY PRN Constipation Ezetimibe 10 mg 07/04/20 09:00 07/08/20 09:01 Ezetimibe 10 Mg Tablet PO 10 mg DAILY [facility] Administration Enoxaparin Sodium 40 mg 07/08/20 13:15 07/08/20 13:18 Enoxaparin Sodium 40 Mg/0.4 Ml Syringe SUBCUT 40 mg Q24H [facility]ANIA Administration Escitalopram Oxalate 20 mg 07/04/20 09:00 07/08/20 09:01 Escitalopram Oxalate 20 Mg Tablet PO 20 mg DAILY [facility] Administration Gabapentin 300 mg 07/04/20 09:00 07/08/20 09:01 Gabapentin 300 Mg Capsule PO 300 mg BID [facility] Administration Latanoprost 1 drop 07/04/20 21:00 07/07/20 22:06 Latanoprost 0.005 % Ophth Lolita 2.5 Ml Drops EYE-BOTH 1 drop BEDTIME [facility] Administration Lisinopril 20 mg 07/04/20 09:00 07/05/20 09:05 Lisinopril 20 Mg Tablet PO 20 mg DAILY [facility] Administration Protocol Metoprolol Tartrate 25 mg 07/04/20 09:00 07/08/20 09:01 Metoprolol Tartrate 25 Mg Tablet PO 25 mg BID [facility] Administration Protocol Mirtazapine 7.5 mg 07/04/20 21:00 07/07/20 22:06 Mirtazapine 7.5 Mg Tablet PO 7.5 mg BEDTIME [facility] Administration Morphine Sulfate 4 mg 07/04/20 00:35 07/06/20 17:39 Morphine Sulfate 4 Mg/Ml Cartridge IVPUSH 4 mg Q4H PRN Administration Pain, Severe (Pain Scale 7-10) Ondansetron HCl 4 mg 07/04/20 00:35 Ondansetron Hcl 4 Mg/2 Ml Vial IVPUSH Q8H PRN Nausea and Vomiting Oxycodone HCl 5 mg 07/07/20 07:00 07/07/20 13:31 Oxycodone Hcl Immed Release 5 Mg Tablet PO 5 mg Q6H PRN Administration Pain, Moderate (Pain Scale 4-6 Pharmacy Consult 1 each 07/03/20 21:09 Consult Rx Perform Med Rec MISCELLANE ONCE PRN Consult order Sodium Chloride 3 ml 07/04/20 00:35 07/08/20 09:00 0.9 % Sodium Chloride Flush 3 Ml Syringe IVFLUSH Not Given QSHIFT [facility] Tramadol HCl 50 mg 07/04/20 00:44 Tramadol Hcl 50 Mg Tablet PO BEDTIME PRN Pain, Severe (Pain Scale 7-10) Vitamin D 250 mcg 07/04/20 09:00 07/08/20 09:01 Cholecalciferol (Vitamin D3) 25 Mcg Tablet PO 250 mcg DAILY IDANIA Administration <Makeda Cotto NP - Last Filed: 07/08/20 14:11> Labs CBC & Chem 7: : 07/08/20 05:46 07/08/20 05:46 <Makeda Cotto NP - Last Filed: 07/08/20 14:11> Assessment and Plan (1) Closed hip fracture: Status: Acute <Makeda Cotto NP - Last Filed: 07/08/20 14:11> Assessment and Plan: This is a 84-year-old male with past medical history of HTN, HLD, osteoarthritis who presents to the hospital after a fall found to have right intertrochanteric femur fracture Right intertrochanteric femur fracture secondary to mechanical fall. POD #4 s/p IMN nailing. - continue pain control - orthopedic team following - PT/OT - Covid test OLEG on CKD3. SCr trending down -hold lisinopril -IVF -follow urine output Acute blood loss anemia. H/H with appropriate rise following transfusion (2U /10) -follow CBC HTN. Blood pressure controlled -continue metoprolol -hold lisinopril for OLEG -follow blood pressure closely H/O daily etoh use. no evidence of withdrawal -continue to follow CIWA for now, no need for phenobarbital at this time HLD - continue Zetia, statin Dementia. alert but confused at baseline. high risk for delirium -continue mirtazapine -frequent re orientation; glasses on, hearing aids in -encourage PO intake, needs assistance with feeding Depression -Continue Lexapro DVT prophylaxis: started on Lovenox 30mg per orthopedic service HCP - Michelle [phone] Disposition- Discharge to rehab pending facility acceptance <Makeda Cotto NP - Last Filed: 07/08/20 14:11> (2) Acute blood loss anemia: Status: Acute <Makeda Cotto NP - Last Filed: 07/08/20 14:11> Assessment and Plan: Attending Attestation: Patient seen and examined independently and I was present during [place] portion of E/M service. Agree with Carli Cotto NP's history, physical, assessment, and plan. <Nato Watts MD - Last Filed: 07/14/20 15:33>
--- NOTE | 2020-07-08 14:11 | PM.DS ---
DS: Providers Provider Date of Service: 07/08/20 <Makeda Cotto NP - Last Filed: 07/08/20 15:50> 07/08/20 <Nato Watts MD - Last Filed: 07/08/20 16:00> Date of admission: 07/03/20 23:21 <Makeda Cotto NP - Last Filed: 07/08/20 15:50> Date of discharge: 07/08/20 <Makeda Cotto NP - Last Filed: 07/08/20 15:50> Primary care physician: Ankur Briscoe MD <Makeda Cotto NP - Last Filed: 07/08/20 15:50> Admitting clinician: aSrahy Quinn <Makeda Cotto NP - Last Filed: 07/08/20 15:50> Attending physician on admission: Sarahy Quinn <Makeda Cotto NP - Last Filed: 07/08/20 15:50> Attending physician on discharge: Nato Watts <Makeda Cotto NP - Last Filed: 07/08/20 15:50> Discharging clinician: Makeda Cotto <Makeda Cotto NP - Last Filed: 07/08/20 15:50> DS: Diagnosis Discharge Diagnosis (1) Closed hip fracture: Status: Acute <Makeda Cotto NP - Last Filed: 07/08/20 15:50> (2) Chronic kidney disease, stage III (moderate): Status: Acute <Makeda Cotto NP - Last Filed: 07/08/20 15:50> (3) Anemia: Status: Acute <Makeda Cotto NP - Last Filed: 07/08/20 15:50> (4) Benign essential hypertension: Status: Acute <Makeda Cotto NP - Last Filed: 07/08/20 15:50> (5) Acute kidney injury superimposed on CKD: Status: Acute <Makeda Cotto NP - Last Filed: 07/08/20 15:50> (6) Acute blood loss anemia: Status: Acute <Makeda Cotto NP - Last Filed: 07/08/20 15:50> DS: Medications Discharge Medications Home Medications: Home Medications Medication Instructions Recorded Confirmed aspirin 81 mg tablet,delayed 81 mg PO DAILY 03/25/20 07/03/20 release atorvastatin 80 mg tablet 80 mg PO BEDTIME 03/25/20 07/03/20 ezetimibe 10 mg tablet 10 mg PO DAILY 03/25/20 07/03/20 cholecalciferol (vitamin D3) 250 mcg PO DAILY 07/03/20 07/03/20 [Vitamin D3] cyanocobalamin (vitamin B-12) 1,000 mcg PO DAILY 07/03/20 07/03/20 gabapentin 300 mg PO BID 07/03/20 07/03/20 latanoprost 1 drp OPHTHALMIC (EYE) BEDTIME 07/03/20 07/03/20 tramadol 50 mg PO BEDTIME 07/03/20 07/03/20 vitamins A,C,Q-rdbu-dgmqan 1 tab PO BID 07/03/20 07/03/20 [PreserVision AREDS] Previous Rx's Medication Instructions Recorded mirtazapine 7.5 mg tablet 7.5 mg PO BEDTIME #90 tab 01/21/20 lisinopril 20 mg tablet 20 mg PO DAILY #90 tab 06/21/20 metoprolol tartrate 25 mg tablet 25 mg PO BID #180 tab 06/21/20 escitalopram oxalate 20 mg tablet 20 mg PO DAILY #90 tab 07/04/20 oxycodone 5 mg PO Q6H PRN #12 tab 07/08/20 <Makeda Cotto NP - Last Filed: 07/08/20 15:50> DS: Summary Hospital Course Hospital Course: HP as per admitting provider 84-year-old male with past medical history of asthma, HTN, CKD, CAD, depression, osteoarthritis, HLD, presents to the hospital after experiencing a fall. Patient is hard of hearing but I was able to get some history. Patient reports that [place] the [place], turned to talk to his , lost his balance and fell. Sustaining severe pain and injury to his right hip. He reports that he was unable to get up due to the severe pain. He otherwise denies any headache, change in vision, no dizziness, no chest pain, no palpitation, no abdominal pain nausea or vomiting, no diarrhea or constipation, no urinary symptoms and no lower extremity edema. To the ED hemodynamically stable with No significant abnormal vitals. Labs are significant for WBC count of 16.1, hemoglobin of 10.6, hematocrit of 33.2 chloride of 110, BUN of 27, creatinine of 1.44 which is around his baseline, UA negative, COVID-19 negative, spine fracture or traumatic malalignment, advanced degenerative changes, CT head shows no acute intracranial abnormality, x-ray of hip shows intratrochanteric fracture of the right femur. Chest x-ray shows chronic appearing changes but no acute process . Femur fracture secondary to a mechanical fall. Status post IM nailing. Physical therapy evaluation with recommendation for short-term rehab. Will continue Lovenox 40 mg daily for 6 weeks. OLEG on CKD. Likely related to dehydration. Lisinopril was held during hospitalization. Renal function proved with IV fluid hydration. Follow up as outpatient with primary care provider. Acute blood-loss anemia. 2 units of blood transfused with good increase in hemoglobin and hematocrit. Attending: Dr. Watts Attending Attestation: Patient seen and examined independently and I was present during [place] portion of E/M service. Agree with Carli Cotto NP's history, physical, assessment, and plan. Patient admitted for Hip fx. Evaluted pre-op by cardiology and deemeded intermediate to high risk. Underwent successful operative repair. Ortho recommended 6 weeks of Lovneox (initially 30mg due to OLEG, changed to 40mg upon d/c as CrCl improved). Hospital course complicated by acute blood loss anemia secondary to hip fracture and required PRBC transfusion -- h/h stable post transfusion. Also sustained OLEG which resolved with IVF. Will hold lisinopril upon d/c and can recheck BMP in 3-4 days from d/c and if SCr stable, can restart Lisinopril with close monitoring of renal function once restarted. <Makeda Cotto NP - Last Filed: 07/08/20 15:50> Time Spent with Patient Time attestation: Total time spent providing and/or coordinating discharge services: <Makeda Cotto NP - Last Filed: 07/08/20 15:50> Discharge coordination time: Greater than 30 minutes <Makeda Cotto NP - Last Filed: 07/08/20 15:50> Physical Exam Vital Signs: Vital Signs: Last Vital Signs Temp 97.4 F 07/08/20 11:54 Pulse 63 07/08/20 11:54 Resp 18 07/08/20 11:54 BP 142/65 H 07/08/20 11:54 Pulse Ox 98 07/08/20 11:54 Body Mass Index 27.3 <Makeda Cotto NP - Last Filed: 07/08/20 15:50> Appearing in no acute distress head is normocephalic atraumatic eyes pupils are PERRLA sclera is anicteric mouth throat mucous membranes are intact and moist neck is supple no lymphadenopathy, no JVD noted lung sounds are clear to auscultation heart regular rate rhythm, clear S1, S2 positive bowel sounds, abdomen is soft, nontender neuro patient is alert, confused <Makeda Cotto NP - Last Filed: 07/08/20 15:50> DS: Data Data Completed and Pending Labs on day of discharge: Laboratory Results - last 24 hr 07/07/20 07/08/20 07/08/20 17:32 05:46 05:46 WBC 9.8 RBC 2.82 L Hgb 9.1 L Hct 28.1 L MCV 99.6 H MCH 32.3 MCHC 32.4 RDW 14.5 Plt Count 183 D MPV 10.4 Immature Gran % (Auto) 0.6 H Neut % (Auto) 66.8 Lymph % (Auto) 14.9 L [place] % (Auto) 12.9 H Eos % (Auto) 4.3 H Baso % (Auto) 0.5 Lymph # (Auto) 1.5 [place] # (Auto) 1.3 H Eos # (Auto) 0.4 Baso # (Auto) 0.1 Abs Immat Gran (auto) 0.06 H Absolute Neuts (auto) 6.6 Absolute Nucleated RBC 0.000 Nucleated RBC % (auto) 0.0 Sodium 139 Potassium 4.6 Chloride 107 Carbon Dioxide 24 Anion Gap 13 BUN 44 H Creatinine 1.26 Estim Creat Clear Calc 44.8 Estimated GFR 55 Random Glucose 103 Calcium 8.0 L COVID-19 (LIDA) Negative COVID-19 Clin Com See Note <Makeda Cotto NP - Last Filed: 07/08/20 15:50> Discharge Plan Discharge Anticipated Discharge Date/Time: 07/08/20 13:56 <Makeda Cotto NP - Last Filed: 07/08/20 15:50> Patient Disposition: Xfer Inpatient Rehab Fac <Makeda Cotto NP - Last Filed: 07/08/20 15:50> Referrals: [facility] [Other] Ankur Briscoe MD [Primary Care Provider] - <Makeda Cotto NP - Last Filed: 07/08/20 15:50> Discharge Medications: New enoxaparin 40 mg/0.4 mL Syringe 40 mg subcut Q24H 42 Days Qty: 16.8 RF: 0 oxycodone 5 mg Tablet 5 mg PO Q6H PRN (Reason: Pain, Moderate (Pain Scale 4-6) Qty: 12 RF: 0 Continued mirtazapine 7.5 mg tablet 7.5 mg PO BEDTIME Qty: 90 RF: 3 metoprolol tartrate 25 mg tablet 25 mg PO BID Qty: 180 RF: 3 escitalopram oxalate 20 mg tablet 20 mg PO DAILY Qty: 90 RF: 3 PreserVision AREDS 7,160 unit- 113 mg-100 unit Tablet 1 tab PO BID RF: 0 cyanocobalamin (vitamin B-12) 1,000 mcg Tablet 1,000 mcg PO DAILY RF: 0 cholecalciferol (vitamin D3) [Vitamin D3] 125 mcg (5,000 unit) Tablet 250 mcg PO DAILY RF: 0 latanoprost 0.005 % Drops 1 drp ophthalmic (eye) BEDTIME RF: 0 tramadol 50 mg tablet 50 mg PO BEDTIME RF: 0 gabapentin 300 mg capsule 300 mg PO BID RF: 0 atorvastatin 80 mg tablet 80 mg PO BEDTIME RF: 0 aspirin 81 mg tablet,delayed release (DR/EC) 81 mg PO DAILY RF: 0 ezetimibe 10 mg tablet 10 mg PO DAILY RF: 0 Held lisinopril 20 mg tablet 20 mg PO DAILY Qty: 90 RF: 3 Hold Instructions: Resume on 07/12/20. check BMP and if SCr remains within normal limits, can restart <Makeda Cotto NP - Last Filed: 07/08/20 15:50> Discharge Orders: Discharge Order (Routine); Ordered 07/08/20 Ordered By: Makeda Cotto <Makeda Cotto NP - Last Filed: 07/08/20 15:50> Diet: advance to usual diet <Makeda Cotto NP - Last Filed: 07/08/20 15:50> advance to usual diet <Nato Watts MD - Last Filed: 07/08/20 16:00> Activity on Discharge: As tolerated <Makeda Cotto NP - Last Filed: 07/08/20 15:50> As tolerated <Nato Watts MD - Last Filed: 07/08/20 16:00> Stand Alone Forms: Patient Portal Discharge page <Makeda Cotto NP - Last Filed: 07/08/20 15:50> Activity Restrictions/Additional Instructions: Gait training, strengthening, ADLs Continue Lovenox for dvt ppx x 6 weeks Keep dressing clean, dry and intact-no showering or tub baths Follow up with Orthopedics in 2 weeks <Makeda Cotto NP - Last Filed: 07/08/20 15:50> Care Plan Goals: Physiccal therapy for strength building to improve activities of daily living and ambulation <Makeda Cotto NP - Last Filed: 07/08/20 15:50> Health Concerns: Hip fracture OLEG on CKD Hypertension anemia <Makeda Cotto NP - Last Filed: 07/08/20 15:50> Plan of Treatment: Follow up with orthopedics in [address] Caraballo [phone] <Makeda Cotto NP - Last Filed: 07/08/20 15:50> Assessment: See Discharge Summary <Makeda Cotto NP - Last Filed: 07/08/20 15:50>
[2020-07-08 15:09] VITALS: BP 138/46; PULSE 69; RESP 17; TEMP 36.6; O2SAT 97
== END 2020-07-08 17:20 | DRG 481 ==
LOC: HO.ED 21:24 → HO.EDOVER 23:58 → HO.IMC 07-04 07:10
PROVIDERS: Nurse Practitioner Acute Care; Orthopaedic Surgery; Physician Assistant; Physician Assistant Medical; Admitting Provider Internal Medicine; Emergency Provider Emergency Medicine; PCP Internal Medicine; Visit Provider Family Medicine
PROC: 0QS636Z Reposition Right Upper Femur with Intramedullary Internal Fixation Device, Percutaneous Approach (ICD-10-PCS; principal; 2020-07-04 13:30)
DX: S72.111A Displaced fracture of greater trochanter of right femur, initial encounter for closed fracture (principal); D62 Acute posthemorrhagic anemia; N17.9 Acute kidney failure, unspecified; W18.39XA Other fall on same level, initial encounter; Y93.9 Activity, unspecified; Y92.9 Unspecified place or not applicable; I25.2 Old myocardial infarction; I25.10 Atherosclerotic heart disease of native coronary artery without angina pectoris; F32.9 Major depressive disorder, single episode, unspecified; F03.90 Unspecified dementia, unspecified severity, without behavioral disturbance, psychotic disturbance, mood disturbance, and anxiety; E78.5 Hyperlipidemia, unspecified; N18.30 Chronic kidney disease, stage 3 unspecified; I12.9 Hypertensive chronic kidney disease with stage 1 through stage 4 chronic kidney disease, or unspecified chronic kidney disease; Y99.9 Unspecified external cause status; Z20.822 Contact with and (suspected) exposure to COVID-19; Z79.82 Long term (current) use of aspirin; Z79.891 Long term (current) use of opiate analgesic; Z79.899 Other long term (current) drug therapy
CPT/HCPCS: 36415; 70450; 71045; 72125; 73521; 80048; 81001; 82607; 82746; 85025; 86850; 86900; 86923; 87635; 93005; 93308; 97162; 97166; 97530; 97535; 99285; C1713; C1758; C1769; J0690; J1650; J2270; J2370; J3010; P9016

== ENCOUNTER → 2020-07-18 10:06 | Outpatient (BNVA) | payer OTHER, MEDICARE, SELFPAY | PROVIDERS: PCP Internal Medicine; Visit Provider Physician Assistant | DX: Z87.81 Personal history of (healed) traumatic fracture (principal) | CPT/HCPCS: 99212 ==

== ENCOUNTER 2020-08-22 07:16 | Outpatient (REF) | payer MEDICARE, SELFPAY ==
--- NOTE | ~2020-08-22 | XR_ITS ---
EXAMINATION: XR HIP, RIGHT CLINICAL INFORMATION: Pain]. COMPARISON: Right hip 07/03/2020 TECHNIQUE: Two views of the right hip. FINDINGS: There is a intramedullary femoral luz and a right hip nail stabilizing right intertrochanteric fracture in alignment. There is no dislocation. The soft tissues are normal. Mild reduction in left hip joint space is seen. The SI joints are symmetrical.. XR/XR hip RT min 2V IMPRESSION: Stabilized right hip intertrochanteric fracture status post ORIF. Mild degenerative changes left hip joint. No acute fracture or dislocation.
== END 2020-08-22 07:17 | disposition home or self-care (01) ==
LOC: HO.HOSX 07:16
PROVIDERS: Visit Provider Physician Assistant
DX: M25.551 Pain in right hip (principal); S72.001D Fracture of unspecified part of neck of right femur, subsequent encounter for closed fracture with routine healing
CPT/HCPCS: 73502; 99212

== ENCOUNTER → 2020-10-22 10:26 | Outpatient (BNVA) | payer MEDICARE, MEDICAID, SELFPAY | PROVIDERS: PCP Family Medicine; Visit Provider Urology | DX: N40.1 Benign prostatic hyperplasia with lower urinary tract symptoms (principal); N13.8 Other obstructive and reflux uropathy; R33.8 Other retention of urine | CPT/HCPCS: 51700; 51798; 99212 ==

== ENCOUNTER → 2020-12-19 13:29 | Outpatient (BNVA) | payer MEDICARE, MEDICAID, SELFPAY | PROVIDERS: PCP Family Medicine; Visit Provider Urology | DX: N40.1 Benign prostatic hyperplasia with lower urinary tract symptoms (principal); N13.8 Other obstructive and reflux uropathy; R33.9 Retention of urine, unspecified | CPT/HCPCS: 52000; 99212 ==

== ENCOUNTER 2021-06-23 10:30 | Outpatient (AMB) | payer MEDICARE, MEDICAID, SELFPAY ==
--- NOTE | 2021-06-23 11:03 | A.OFFVIS_ITS ---
Intake Intake Visit Reasons: 6 Month PVR Intake Note: Patient is present for follow up. Patient currently has a catheter that is regularly checked where he stays Block Greaser Required: No Loan Interviewer Mortgage: Loan Interviewer Mortgage Present Accompanied by: Spouse Allergies lisinopril Allergy (Verified 03/09/23 21:40) Unknown HPI HPI Comments History of Present Illness Details Tang is a pleasant male. He seen for the following urologic conditions - bladder cancer - BPH Here for cystoscopy today Enlarged median lobe Otherwise normal bladder Failed voiding trial Mcpherson catheter placed Move ahead with monthly Mcpherson catheter changes 16 Khmer We can review in office in 6 months Bladder cancer Initial resection May 2016 Follow-up cystoscopy negative Lower urinary tract symptoms Urinary retention September 2020 Associated with orthopedic procedure Medications tamsulosin Failed voiding trial PFSH Medical History Mucus plugging of bronchi Respiratory failure with hypoxia and hypercapnia Atelectasis of left lung BPH (benign prostatic hyperplasia) Frequent falls On beta priscilla at home Overweight (BMI 25.0-29.9) Depression Urothelial carcinoma of bladder Vitamin B12 deficiency Vitamin D deficiency GERD without esophagitis Anemia Primary osteoarthritis, right shoulder Osteoarthritis of both knees Chronic kidney disease, stage III (moderate) Impaired fasting glucose Elevated liver enzymes Subdural hematoma Benign essential hypertension Pure hypercholesterolemia Coronary artery disease Surgical History History of tonsillectomy History of transurethral resection of bladder tumor (TURBT) History of hip surgery History of transurethral resection of prostate History of shoulder surgery Family History Father CVD (cardiovascular disease) Mother Hypertension Social History Household Members: Other Housing: Residential Housing Other:: [facility] Are you a primary director day care center to a significant other at home: No Do you presently have visiting nurse or other home services: No Alcohol intake: never Patient Tobacco Use Status: Former Tobacco user Advance Directives Date on File: 06/29/20 service: Yes Review of Systems Const Denies chills and Denies fever(s) Card Reports no additional complaints and Denies syncope Resp Denies cough GI Denies abdominal pain and Denies heartburn Reports as per HPI and Denies change in libido Neuro Denies syncope Psych Denies change in libido Endo Denies change in libido Physical Exam Const General: cooperative, healthy appearing, comfortable and no acute distress Orientation/consciousness: patient oriented x3 HEENT Face and sinus: Yes normal facial exam Mouth: moist mucous membranes Neck Neck: Yes normal visual inspection, Yes full ROM and Yes trachea midline Chest Chest palpation & inspection: normal inspection of the chest Resp Effort & Inspection: normal respiratory effort, able to speak in complete sentences and no respiratory distress GI Inspection: Yes normal to inspection Back/Spine/Pelvis Cervical Spine: normal cervical lordosis Thoracic/Lumbar Spine: thoracic and lumbar spine normal to inspection Skin General skin exam: no rashes or lesions noted Neuro General: patient oriented x3, gait normal, tone normal and moves all extremities Extrem General: Yes normal to inspection and Yes capillary refill normal Office Procedures Bladder/Catheter Procedure 16222-Zkijrzchyf of Bladder (mcpherson catheter clogged, straight catheter inserted 120 cc sterile water instilled in bladder unable to void. Per 18 fr reinserted 200 ml drained into mcpherson.) 63914-Afddcq Bladder Catheter 29896-Zvjzyq Temporary Bladder Catheter Procedure code (CPT) selection complete Assessment & Plan Assessment & Plan (1) Urinary retention with incomplete bladder emptying: Code(s): R33.9 - Retention of urine, unspecified (2) BPH w urinary obs/LUTS: Code(s): N40.1 - Benign prostatic hyperplasia with lower urinary tract symptoms; N13.8 - Other obstructive and reflux uropathy Plan Six-month follow-up Orders: Orders AMB Bladder/Catheter Procedure 06/23/21 R33.9 - Retention of urine, unspecified Patient Instructions: Imaging studies, laboratory and physical exam results were discussed and reviewed in detail. No major barriers to patient understanding were identified. An opportunity to ask questions regarding the treatment plan was provided. All questions were answered. The patient expressed understanding and agreement with the above treatment plan. The patient is aware they should contact our office by phone for worsening of their current condition or the appearance of new urologic symptoms. Compliance is encouraged with any medications and followup testing that is ordered. It is a privilege to participate in the urologic care of your patient. If you have any questions or concerns regarding treatment for the above conditions, or other urologic issues, please do not hesitate to contact me. The office telephone contact is [phone]. This note is constructed using voice recognition software. While every effort has been made to ensure accuracy truck dispatcher errors may have been included. Yours sincerely, Dr Dewey Grossman MD, [facility] - Urology Providers of Expert, Compassionate Care for the Genitourinary System Coding Level of Care Code Est Pt Level 3 (20499) Diagnoses Urinary retention with incomplete bladder emptying R33.9 BPH w urinary obs/LUTS N40.1; N13.8 CPT Codes Bladder/Catheter Procedure - CPT: 53204-Xfddgytcwb of Bladder ([id number]) Bladder/Catheter Procedure - CPT: 90142-Antrxp Bladder Catheter ([id number]) Bladder/Catheter Procedure - CPT: 92677-Onkrrv Temporary Bladder Catheter ([id number])
== END 2021-06-23 12:15 | disposition home or self-care (01) ==
PROVIDERS: PCP Family Medicine; Visit Provider Urology
DX: R33.9 Retention of urine, unspecified (principal); N40.1 Benign prostatic hyperplasia with lower urinary tract symptoms; N13.8 Other obstructive and reflux uropathy
CPT/HCPCS: 99499

== ENCOUNTER → 2021-06-23 10:30 | Outpatient (BNVA) | payer MEDICARE, SELFPAY | PROVIDERS: PCP Family Medicine; Visit Provider Urology | DX: Z13.89 Encounter for screening for other disorder (principal) | CPT/HCPCS: 51700; 51701; 51702 ==

== ENCOUNTER 2021-11-05 06:18 | Outpatient (REF) | payer MEDICARE, MEDICAID, SELFPAY ==
[2021-11-05 07:47] LABS: MANUAL DIFF FLAG NO
[2021-11-05 07:50] LABS: Basophils Absolute Auto 0.1 X10*3/uL (0.0-0.2); Basophils Percent Auto 0.8 % (0-2); Eosinophils Percent Auto 10.7 % (0-4); Hematocrit 34.9 % (42.0-52.0); Hemoglobin 11.6 g/dl (14.0-18.0); Imm Gran Abs Auto 0.02 X10*3/uL (0.00-0.03); Imm Gran Pct Auto 0.2 % (0.0-0.4); Lymphocytes Absolute Auto 1.6 X10*3/uL (1.2-4.9); Lymphocytes Percent Auto 17.4 % (20-40); Mean Corpuscular HGB Conc 33.2 g/dl (31.0-36.0); Mean Corpuscular Hemoglobin 32.1 pg (27.0-33.0); Mean Corpuscular Volume 96.7 fL (80.0-98.0); Mean Platelet Volume 10.6 fL (9.4-12.4); Monocytes Absolute Auto 0.9 X10*3/uL (0.1-1.2); Monocytes Percent Auto 9.9 % (2-11); Neutrophils Absolute Auto 5.5 x10*3/uL (2.0-8.3); Platelet Count 144 X10*3/uL (160-400); Red Blood Count 3.61 X10*6/uL (4.60-5.80); Red Cell Distribution Width 12.5 % (11.0-16.0)
[2021-11-05 08:25] LABS: Alanine Aminotransferase 19 U/L (0-40); Albumin Level 3.7 g/dL (3.5-5.0); Alkaline Phosphatase 44 U/L (39-117); Anion Gap 15 (12-20); Aspartate Amino Transferase 19 U/L (5-37); Bilirubin Total 0.8 mg/dL (0.0-1.0); Blood Urea Nitrogen 18 mg/dL (9-16); Calcium 9.2 mg/dL (8.4-10.2); Carbon Dioxide 27 mmol/L (22-29); Chloride 104 mmol/L (96-108); Cholesterol 99 mg/dL; Estimated Glomerular Filt Rate 55; Glucose Fasting 84 mg/dL (60-99); HDL Cholesterol 29 mg/dL; LDL Cholesterol Calculated 46 mg/dl; Potassium 4.5 mmol/L (3.3-5.1); Sodium 141 mmol/L (135-145); Total Protein 6.5 g/dL (6.5-8.0); Triglycerides 123 mg/dL
[2021-11-05 08:44] LABS: Prostate Specific Antigen 1.92 ng/mL (<0.05-4.0); Vitamin D 25-OH Total 41.9 ng/mL (>30)
[2021-11-05 09:15] LABS: Vitamin B12 1054 pg/mL (200-900)
[2021-11-10 16:42] LABS: TS Negative Control Passed; TS Panel A 0; TS Panel B 1; TS Positive Control Passed; TSpotTB Negative (Negative)
== END 2021-11-05 06:19 | disposition home or self-care (01) ==
LOC: HO.HSH3E 06:18
PROVIDERS: Visit Provider Internal Medicine Medical Oncology
DX: Z12.5 Encounter for screening for malignant neoplasm of prostate (principal); Z11.1 Encounter for screening for respiratory tuberculosis; I25.10 Atherosclerotic heart disease of native coronary artery without angina pectoris; I12.9 Hypertensive chronic kidney disease with stage 1 through stage 4 chronic kidney disease, or unspecified chronic kidney disease; N18.30 Chronic kidney disease, stage 3 unspecified
CPT/HCPCS: 36415; 80053; 80061; 82306; 82607; 84153; 85025; 86481

== ENCOUNTER 2021-11-18 11:29 | Outpatient (REF) | payer MEDICARE, MEDICAID, SELFPAY | END 2021-11-18 11:30 | disposition home or self-care (01) | LOC: HO.LNP 11:29 | PROVIDERS: Visit Provider Internal Medicine Medical Oncology | DX: D49.2 Neoplasm of unspecified behavior of bone, soft tissue, and skin (principal) | CPT/HCPCS: 88305 ==

== ENCOUNTER → 2021-12-25 10:39 | Outpatient (BNVA) | payer MEDICARE, MEDICAID, SELFPAY | PROVIDERS: PCP Family Medicine; Visit Provider Urology | DX: N40.1 Benign prostatic hyperplasia with lower urinary tract symptoms (principal); N13.8 Other obstructive and reflux uropathy; R33.9 Retention of urine, unspecified; C67.9 Malignant neoplasm of bladder, unspecified | CPT/HCPCS: 99212 ==

== ENCOUNTER 2022-04-02 16:56 | Emergency (ER) | payer OTHER, SELFPAY ==
--- NOTE | ~2022-04-02 | XR_ITS ---
EXAMINATION: XR CHEST CLINICAL INFORMATION: Fall COMPARISON: 07/03/2020 TECHNIQUE: Frontal view of the chest was obtained. FINDINGS: No acute finding. Chronic elevation of the left hemidiaphragm. No acute finding. The lung arceo are otherwise grossly clear. There is no pneumothorax or effusion. No displaced fracture is identified. Prominent cardiac silhouette is likely present. XR/XR chest 1V IMPRESSION: No acute finding.
--- NOTE | ~2022-04-02 | CT_ITS ---
EXAMINATION: HEAD CT WITHOUT CONTRAST CERVICAL SPINE CT WITHOUT CONTRAST CLINICAL INFORMATION: Fall, head trauma COMPARISON: CT 07/03/2020 TECHNIQUE: Contiguous axial imaging of the head was performed without the administration of IV contrast. Axial multidetector volumetric images were also performed through the cervical spine without contrast. Multiplanar reconstructed images in coronal and sagittal orientations were submitted. DOSE: 1416 mGy-cm FINDINGS: HEAD: There is no evidence of acute intracranial hemorrhage or edematous territorial infarction. A small chronic infarct is seen in the right occipital lobe. Small chronic infarct in the right basal ganglia. No abnormal mass-effect or midline shift. No extra-axial fluid collections. [place]zon to white matter differentiation is well preserved. Commensurate prominence of the ventricles and sulci is compatible with generalized parenchymal volume loss. There is periventricular and white matter hypoattenuation, most likely representing microangiopathic disease. Soft tissue swelling and scalp hematoma in the right frontal region, as well as scalp hematoma in the left superior/posterior scalp. No acute calvarial fracture seen. The sinuses and mastoid air cells are clear. CERVICAL SPINE: Craniocervical and atlantoaxial articulation is maintained. Vertebral body alignment is maintained. Vertebral body heights are maintained. No acute fractures identified. Advanced multilevel cervical spondylosis. There is a bulky anterior bridging osteophytes at C2-C3, C3-C4. Advanced disc degenerative changes at C3-C4, C4-C5, C5-C6. At C5-C6, there is moderate to severe central canal stenosis. No prevertebral soft tissue swelling. No suspicious are finding seen. No acute findings seen in the lung apices. CT/CT cervical spine wo IV con IMPRESSION: 1. No CT evidence of acute intracranial pathology. 2. Soft tissue swelling and scalp hematoma in the right frontal and the left superior frontal occipital region. 3. No CT evidence acute fracture or malalignment in the cervical spine. 4. Advanced multilevel cervical spondylosis, described above.
[2022-04-02 17:04] VITALS: BP 141/67; BP 180/80; PULSE 54; RESP 16; TEMP 36.4; O2SAT 96; O2SAT 97; BMI 31.9
--- NOTE | 2022-04-02 18:26 | ED.FALL ---
HPI - Fall General Chief Complaint: Fall Stated Complaint: From SNF, Fall w/ head strike per EMS Time Seen by Provider: 04/02/22 18:26 Source: patient and EMS Mode of arrival: EMS Limitations: no limitations History of Present Illness HPI Narrative: 86-year-old male presents via EMS for head injury sustained from a fall with right-sided head trauma. Patient was sitting in his wheelchair, fell asleep, and fell out of his chair landing on his head. Is not report any complaints at this time. MD complaint: fall Onset (ago): hour(s) (Within the hour of arrival) Fall from: wheelchair Fall witnessed: no Place fall occurred: [facility] Loss of consciousness: unsure Prolonged down time: no Symptoms prior to fall: none Context: other (Fell asleep in his chair, and then fell out of it) Location of injury: head Severity: mild Quality: aching Associated symptoms (after fall): headache Related Data Home Medications Medication Instructions Recorded Confirmed aspirin 81 mg tablet,delayed 81 mg PO DAILY 03/25/20 07/03/20 release atorvastatin 80 mg tablet 80 mg PO BEDTIME 03/25/20 07/03/20 ezetimibe 10 mg tablet 10 mg PO DAILY 03/25/20 07/03/20 cholecalciferol (vitamin D3) 125 250 mcg PO DAILY 07/03/20 07/03/20 mcg (5,000 unit) tablet (Vitamin D3) cyanocobalamin (vitamin B-12) 1,000 mcg PO DAILY 07/03/20 07/03/20 1,000 mcg tablet gabapentin 300 mg capsule 300 mg PO BID 07/03/20 07/03/20 latanoprost 0.005 % eye drops 1 drp ophthalmic (eye) BEDTIME 07/03/20 07/03/20 tramadol 50 mg tablet 50 mg PO BEDTIME 07/03/20 07/03/20 vitamins A,C,M-ntcv-wkhjnf 2,148 1 tab PO BID 07/03/20 07/03/20 mcg-113 mg-45 mg-17.4 mg tablet (PreserVision AREDS) escitalopram oxalate 5 mg/5 mL mg PO 06/23/21 oral solution metoprolol succinate 100 mg mg PO 06/23/21 tablet,extended release 24 hr Previous Rx's Medication Instructions Recorded mirtazapine 7.5 mg tablet 7.5 mg PO BEDTIME #90 tabs 01/21/20 lisinopril 20 mg tablet 20 mg PO DAILY #90 tabs 06/21/20 metoprolol tartrate 25 mg tablet 25 mg PO BID #180 tabs 06/21/20 escitalopram oxalate 20 mg tablet 20 mg PO DAILY #90 tabs 07/04/20 enoxaparin 40 mg/0.4 mL 40 mg (0.4 mL) subcut Q24H DVT 07/08/20 subcutaneous syringe prophylaxis with 6 weeks #16.8 mL oxycodone 5 mg tablet 5 mg PO Q6H PRN Pain, Moderate 07/08/20 (Pain Scale 4-6 #12 tabs tamsulosin 0.4 mg capsule 0.4 mg PO BEDTIME 90 days #90 caps 10/22/20 Allergies Allergy/AdvReac Type Severity Reaction Status Date / Time lisinopril Allergy Unknown Verified 04/02/22 17:11 Review of Systems Review of Systems: Constitutional: No Fever, No Chills ENT/Mouth: No Ear Pain, No Hoarseness, No sore throat Eyes: No Eye Pain, No Swelling, No Redness, No Foreign Body Cardiovascular: No Chest Pain, No SOB Respiratory: No Cough, No Dyspnea Gastrointestinal: No Nausea, No Vomiting, No Diarrhea, No abdominal Pain Genitourinary: No Dysuria, No Hematuria Musculoskeletal: positive head pain, No Myalgias, No Joint Swelling Skin: Positive head laceration, No rash Neuro: No Weakness, No Numbness, No Paresthesias, No Loss of Consciousness, No Dizziness, positive Headache Yes all other systems are reviewed and are negative [facility] Past Medical History Attestation statement: The following information was validated with the patient. Source: old records reviewed Medical History Anemia Benign essential hypertension Chronic kidney disease, stage III (moderate) Coronary artery disease Depression Elevated liver enzymes GERD without esophagitis Impaired fasting glucose Osteoarthritis of both knees Overweight (BMI 25.0-29.9) Primary osteoarthritis, right shoulder Pure hypercholesterolemia Subdural hematoma Urothelial carcinoma of bladder Vitamin B12 deficiency Vitamin D deficiency Surgical History History of shoulder surgery History of transurethral resection of prostate Family History Family History Father CVD (cardiovascular disease) Mother Hypertension Social History Social History Household Members: Spouse Housing: House Do you presently have visiting nurse or other home services: No Alcohol intake: current Alcohol intake frequency: does not drink Alcohol type: wine Advance Directives: No Advance Directives Information Provided: No service: Yes Physical Exam Vital Signs: Vital Signs: Last Vital Signs Temp 98.7 F 04/02/22 19:34 Pulse 57 04/02/22 19:34 Resp 15 04/02/22 19:34 BP 154/62 H 04/02/22 19:34 Pulse Ox 96 04/02/22 19:34 O2 Del Method 04/02/22 19:34 BMI result Body Mass Index 31.9 Appearance: Alert. Oriented X3. No acute distress. Eyes: Pupils equal, round and reactive to light. ENT: Pharynx normal. Neck: Normal inspection. Neck supple. CVS: Normal heart rate and rhythm. Pulses normal. Respiratory: No respiratory distress. Breath sounds normal. Abdomen: Soft and nontender. Skin: Laceration to right scalp. Extremities: No lower extremity edema. Moves all extremities against resistance. Strength 5/5. Neuro: No motor deficit. No sensory deficit. Cranial nerves 2-12 intact. Course Course Course Narrative: 86-year-old male presents via EMS in a C-collar for injuries sustained from a fall. Patient states that he fell asleep in his wheelchair, fell over and hit his head. He does not recall losing consciousness, and was not on the ground for any long period of time. He is concerned because he has to get back to his . He does not have a history of dementia, but does have a history of anemia, OLEG, depression, bladder carcinoma, hypertension, hyperlipidemia and coronary artery disease. Will order CT scan of head, cervical spine. Patient is alert oriented, [place] Coma Scale 15. 20:59 CT scan negative for acute findings requiring emergent intervention. C-collar removed. Tech cleaning wound, plan is for suturing. Will update Tdap vaccine at this time. ACS workup is negative. Wound is too small for suturing will closed with Steri-Strips. There is a significant amount of swelling and hematoma under the laceration. Plan of care is for patient to return to [facility]. Medications Administered Discontinued Medications Generic Name Dose Route Start Last Admin Trade Name Freq PRN Reason Stop Dose Admin Diphtheria/Tetanus/Acell Pertussis 0.5 ml 04/02/22 20:59 04/02/22 21:28 Diphth,Pertus(Acell),Tet Adult 0.5 Ml Syringe IM 04/02/22 21:00 0.5 ml .ONCE ONE Administration Medical Decision Making Differential Diagnosis Differential Diagnoses: The differential diagnosis associated with the presentation includes Concussion, fracture, laceration, subdural, CVA, ACS Admission/Observation Consideration of admission/observation: Escalation of care including admission/observation considered If CT scans are positive for acute findings, will transfer to trauma center. Lab Data MDM Lab Attestation statement: I reviewed the patient's lab results. 04/02/22 18:52 04/02/22 18:52 Labs: Lab Results 04/02/22 04/02/22 04/02/22 Range/Units 18:52 18:52 18:52 WBC 10.7 (4.8-10.8) X10*3/uL RBC 3.75 L (4.60-5.80) X10*6/uL Hgb 12.0 L (14.0-18.0) g/dl Hct 36.7 L (42.0-52.0) % MCV 97.9 (80.0-98.0) fL MCH 32.0 (27.0-33.0) pg MCHC 32.7 (31.0-36.0) g/dl RDW 12.6 (11.0-16.0) % Plt Count 157 L (160-400) X10*3/uL MPV 10.2 (9.4-12.4) fL Immature Gran % (Auto) 0.4 (0.0-0.4) % Neut % (Auto) 66.2 (45-73) % Lymph % (Auto) 16.6 L (20-40) % Saunders % (Auto) 9.6 (2-11) % Eos % (Auto) 6.5 H (0-4) % Baso % (Auto) 0.7 (0-2) % Lymph # (Auto) 1.8 (1.2-4.9) X10*3/uL Saunders # (Auto) 1.0 (0.1-1.2) X10*3/uL Eos # (Auto) 0.7 H (0.0-0.4) X10*3/uL Baso # (Auto) 0.1 (0.0-0.2) X10*3/uL Abs Immat Gran (auto) 0.04 H (0.00-0.03) X10*3/uL Absolute Neuts (auto) 7.1 (2.0-8.3) x10*3/uL Absolute Nucleated RBC 0.000 (0.0-0.012) X10*3/uL Nucleated RBC % (auto) 0.0 (0.0-0.2) /100WBC Sodium 140 (135-145) mmol/L Potassium 4.7 (3.3-5.1) mmol/L Chloride 107 (96-108) mmol/L Carbon Dioxide 23 (22-29) mmol/L Anion Gap 15 (12-20) BUN 22 H (9-16) mg/dL Creatinine 1.26 (0.5-1.4) mg/dL Estim Creat Clear Calc 46.4 Estimated GFR 54 Random Glucose 88 (60-115) mg/dL Calcium 9.1 (8.4-10.2) mg/dL Troponin I High Sens 6.3 (<3.5-35.0) ng/L Urine Color Urine Appearance Urine pH (5.0-9.0) Ur Specific [place] (1.005-1.025) Urine Protein (Neg-Trace) mg/dL Urine Glucose (UA) (Negative) mg/dL Urine Ketones (Negative) mg/dL Urine Blood (Negative) Urine Nitrite (Negative) Ur Leukocyte Esterase (Negative) Urine RBC (0-2) /HPF Urine WBC (0-5) /HPF Ur Squamous Epith Cells (0-2) /HPF Urine Bacteria (None Seen) Hyaline Casts (0-2) /LPF 04/02/22 Range/Units 19:47 WBC (4.8-10.8) X10*3/uL RBC (4.60-5.80) X10*6/uL Hgb (14.0-18.0) g/dl Hct (42.0-52.0) % MCV (80.0-98.0) fL MCH (27.0-33.0) pg MCHC (31.0-36.0) g/dl RDW (11.0-16.0) % Plt Count (160-400) X10*3/uL MPV (9.4-12.4) fL Immature Gran % (Auto) (0.0-0.4) % Neut % (Auto) (45-73) % Lymph % (Auto) (20-40) % Saunders % (Auto) (2-11) % Eos % (Auto) (0-4) % Baso % (Auto) (0-2) % Lymph # (Auto) (1.2-4.9) X10*3/uL Saunders # (Auto) (0.1-1.2) X10*3/uL Eos # (Auto) (0.0-0.4) X10*3/uL Baso # (Auto) (0.0-0.2) X10*3/uL Abs Immat Gran (auto) (0.00-0.03) X10*3/uL Absolute Neuts (auto) (2.0-8.3) x10*3/uL Absolute Nucleated RBC (0.0-0.012) X10*3/uL Nucleated RBC % (auto) (0.0-0.2) /100WBC Sodium (135-145) mmol/L Potassium (3.3-5.1) mmol/L Chloride (96-108) mmol/L Carbon Dioxide (22-29) mmol/L Anion Gap (12-20) BUN (9-16) mg/dL Creatinine (0.5-1.4) mg/dL Estim Creat Clear Calc Estimated GFR Random Glucose (60-115) mg/dL Calcium (8.4-10.2) mg/dL Troponin I High Sens (<3.5-35.0) ng/L Urine Color Yellow Urine Appearance Cloudy Urine pH 8.5 (5.0-9.0) Ur Specific [place] 1.010 (1.005-1.025) Urine Protein Trace (Neg-Trace) mg/dL Urine Glucose (UA) Negative (Negative) mg/dL Urine Ketones Negative (Negative) mg/dL Urine Blood Negative (Negative) Urine Nitrite Negative (Negative) Ur Leukocyte Esterase Large (3+) H (Negative) Urine RBC 0-2 (0-2) /HPF Urine WBC 11-20 H (0-5) /HPF Ur Squamous Epith Cells 0-2 (0-2) /HPF Urine Bacteria 4+ (None Seen) Hyaline Casts 0-2 (0-2) /LPF Independent Interpretation I performed an independent interpretation of an: EKG and CT Scan Interpretation: Vent. rate 61 BPM UT interval 214 ms QRS duration 76 ms QT/QTc 424/426 ms P-R-T axes 84 -4 22 Sinus rhythm with 1st degree A-V block Possible Inferior infarct , age undetermined Abnormal ECG When compared with ECG of 04-JUL-2020 09:35, UT interval has increased 02-APR-2022 19:18:49 Radiology Impression Discussion of test interpretation with radiology: I have reviewed the radiologist's reading. Radiologist Impression: EXAMINATION: HEAD CT WITHOUT CONTRAST CERVICAL SPINE CT WITHOUT CONTRAST CLINICAL INFORMATION: Fall, head trauma COMPARISON: CT 07/03/2020 TECHNIQUE: Contiguous axial imaging of the head was performed without the administration of IV contrast. Axial multidetector volumetric images were also performed through the cervical spine without contrast. Multiplanar reconstructed images in coronal and sagittal orientations were submitted. DOSE: 1416 mGy-cm FINDINGS: HEAD: There is no evidence of acute intracranial hemorrhage or edematous territorial infarction. A small chronic infarct is seen in the right occipital lobe. Small chronic infarct in the right basal ganglia. No abnormal mass-effect or midline shift. No extra-axial fluid collections.? Pinzon to white matter differentiation is well preserved. Commensurate prominence of the ventricles and sulci is compatible with generalized parenchymal volume loss. There is periventricular and white matter hypoattenuation, most likely representing microangiopathic disease. Soft tissue swelling and scalp hematoma in the right frontal region, as well as scalp hematoma in the left superior/posterior scalp. No acute calvarial fracture seen. The sinuses and mastoid air cells are clear. CERVICAL SPINE: Craniocervical and atlantoaxial articulation is maintained. Vertebral body alignment is maintained. Vertebral body heights are maintained. No acute fractures identified. Advanced multilevel cervical spondylosis. There is a bulky anterior bridging osteophytes at C2-C3, C3-C4. Advanced disc degenerative changes at C3-C4, C4-C5, C5-C6. At C5-C6, there is moderate to severe central canal stenosis. No prevertebral soft tissue swelling. No suspicious are finding seen. No acute findings seen in the lung apices. CT/CT head/brain wo IV con IMPRESSION: 1. No CT evidence of acute intracranial pathology. ? 2. Soft tissue swelling and scalp hematoma in the right frontal and the left superior frontal occipital region. ? 3. No CT evidence acute fracture or malalignment in the cervical spine. ? ? 4. Advanced multilevel cervical spondylosis, described above. Independent Historian Clinical information obtained from an independent historian. History obtained from or confirmed by: EMS External Record Review External record reviewed: Outpatient record and Primary care record Chronic Conditions Patient?s care impacted by: Hypertension Discharge Plan Discharge Clinical Impression: Concussion without loss of consciousness, Fall, Laceration of scalp Patient Disposition: Home, Self-Care Instructions: Laceration (ED), Concussion (ED), Post Concussion Syndrome (ED), Skin Adhesive Care (ED) Additional Instructions: You were evaluated for injury sustained from a fall. Your cardiac workup was negative, your lab values are within your normal limits. CT scan of head and neck are negative for acute findings requiring emergent intervention. Scalp laceration was repaired with Steri-Strips. Steri-Strips will fall off on their own. Please follow-up with primary care physician and/or long-term care attending for post concussive protocol. Thank you for choosing this emergency department for evaluation. Please follow-up with primary care physician as needed. Return to the emergency department for any new, concerning, or worsening symptoms. Prescriptions: No Action mirtazapine 7.5 mg tablet 7.5 mg PO BEDTIME Qty: 90 3RF metoprolol tartrate 25 mg tablet 25 mg PO BID Qty: 180 3RF lisinopril 20 mg tablet 20 mg PO DAILY Qty: 90 3RF Hold Instructions: Resume on 07/12/20. check BMP and if SCr remains within normal limits, can restart escitalopram oxalate 20 mg tablet 20 mg PO DAILY Qty: 90 3RF PreserVision AREDS 7,160 unit- 113 mg-100 unit Tablet 1 tab PO BID cyanocobalamin (vitamin B-12) 1,000 mcg Tablet 1,000 mcg PO DAILY cholecalciferol (vitamin D3) [Vitamin D3] 125 mcg (5,000 unit) Tablet 250 mcg PO DAILY latanoprost 0.005 % Drops 1 drp ophthalmic (eye) BEDTIME Rx Instructions: BOTH EYES tramadol 50 mg tablet 50 mg PO BEDTIME Rx Instructions: Take ONLY NEEDED for severe pain gabapentin 300 mg capsule 300 mg PO BID enoxaparin 40 mg/0.4 mL Syringe 40 mg subcut Q24H 42 Days Qty: 16.8 0RF oxycodone 5 mg Tablet 5 mg PO Q6H PRN (Reason: Pain, Moderate (Pain Scale 4-6) Qty: 12 0RF atorvastatin 80 mg tablet 80 mg PO BEDTIME aspirin 81 mg tablet,delayed release (DR/EC) 81 mg PO DAILY ezetimibe 10 mg tablet 10 mg PO DAILY tamsulosin 0.4 mg capsule 0.4 mg PO BEDTIME 90 Days Qty: 90 1RF metoprolol succinate 100 mg tablet extended release 24 hr PO escitalopram oxalate 5 mg/5 mL solution PO Interventions: ED Discharge Assessment Last Done: 04/02/22 22:48 Discharge Date/Time: 04/02/22 22:48
--- NOTE | 2022-04-02 18:27 | ECG_ITS ---
Test Reason : FALL Blood Pressure : / mmHG Vent. Rate : 061 BPM Atrial Rate : 061 BPM P-R Int : 214 ms QRS Dur : 076 ms QT Int : 424 ms P-R-T Axes : 084 -04 022 degrees QTc Int : 426 ms Artifact in tracing Probable sinus rhythm Possible Inferior infarct , age undetermined Abnormal ECG When compared with ECG of 04-JUL-2020 09:35, No significant changes seen Referred By: Julissa Coyne Electronically Signed By:MARIA ELENA WOODS
[2022-04-02 19:00] LABS: MANUAL DIFF FLAG NO
[2022-04-02 19:03] LABS: Basophils Absolute Auto 0.1 X10*3/uL (0.0-0.2); Basophils Percent Auto 0.7 % (0-2); Eosinophils Absolute Auto 0.7 X10*3/uL (0.0-0.4); Eosinophils Percent Auto 6.5 % (0-4); Hematocrit 36.7 % (42.0-52.0); Imm Gran Abs Auto 0.04 X10*3/uL (0.00-0.03); Imm Gran Pct Auto 0.4 % (0.0-0.4); Lymphocytes Absolute Auto 1.8 X10*3/uL (1.2-4.9); Lymphocytes Percent Auto 16.6 % (20-40); Mean Corpuscular HGB Conc 32.7 g/dl (31.0-36.0); Mean Corpuscular Volume 97.9 fL (80.0-98.0); Mean Platelet Volume 10.2 fL (9.4-12.4); Monocytes Percent Auto 9.6 % (2-11); Neutrophils Absolute Auto 7.1 x10*3/uL (2.0-8.3); Neutrophils Percent Auto 66.2 % (45-73); Platelet Count 157 X10*3/uL (160-400); Red Blood Count 3.75 X10*6/uL (4.60-5.80); Red Cell Distribution Width 12.6 % (11.0-16.0); White Blood Count 10.7 X10*3/uL (4.8-10.8)
[2022-04-02 19:27] LABS: Anion Gap 15 (12-20); Blood Urea Nitrogen 22 mg/dL (9-16); Calcium 9.1 mg/dL (8.4-10.2); Carbon Dioxide 23 mmol/L (22-29); Chloride 107 mmol/L (96-108); Creatinine Clr Calc Pharmacy 46.4; Estimated Glomerular Filt Rate 54; Glucose Random 88 mg/dL (60-115); Potassium 4.7 mmol/L (3.3-5.1); Sodium 140 mmol/L (135-145)
--- NOTE | 2022-04-02 19:33 | PC.NURSE ---
Pt aox3. Breahts are even and unlabored. Sinus tiki on monitor with HR 56. Abd soft and non tender with active bowel sounds in all quadrants. Andujar catheter in place. 400cc of dark yellow, clear urine drained from the urine collection leg bag. Skin warm pink and dry. C-collar in place. Laceration noted to the right side of the forehead. No apparent distress noted. Pt awaiting CT scan and lab results and aware of plan of care.
[2022-04-02 19:34] VITALS: BP 154/62; PULSE 57; RESP 15; TEMP 37.1; O2SAT 96
[2022-04-02 19:36] LABS: Troponin-I High Sensitivity 6.3 ng/L (<3.5-35.0)
[2022-04-02 20:09] LABS: Appearance Urine Cloudy; Color Urine Yellow; Glucose Urine UA Negative (Negative); Leukocyte Esterase Urine Large (3+) (Negative); Nitrite Urine Negative (Negative); PH 8.5 (5.0-9.0); UMIC TRIGGER UACC YES; Urine Blood Negative (Negative); Urine Ketones Negative (Negative); Urine Protein Trace mg/dL (Neg-Trace)
[2022-04-02 20:14] LABS: Bacteria Urine 4+ (None Seen); Hyaline Casts Urine 0-2 /LPF (0-2); RBC Urine 0-2 /HPF (0-2); Squamous Epithelial Cell Urine 0-2 /HPF (0-2); UACC Culture Trigger YES
[2022-04-02] MEDS: Diphth,Pertus(ACell),Tet Adult 0.5 ML SYRINGE IM (21:28)
--- NOTE | 2022-04-02 22:47 | PC.NURSE ---
RN to RN report given to [place] nurse at the [facility]. Pt being transferred via ambulance.
== END 2022-04-02 22:48 | disposition home or self-care (01) ==
PROVIDERS: Nurse Practitioner Family; Emergency Provider Emergency Medicine
DX: S06.0X0A Concussion without loss of consciousness, initial encounter (principal); S01.01XA Laceration without foreign body of scalp, initial encounter; S10.91XA Abrasion of unspecified part of neck, initial encounter; R51.9 Headache, unspecified; M54.2 Cervicalgia; R07.89 Other chest pain; W05.0XXA Fall from non-moving wheelchair, initial encounter; Y93.9 Activity, unspecified; Y92.9 Unspecified place or not applicable; Y99.9 Unspecified external cause status; Z79.899 Other long term (current) drug therapy; Z23 Encounter for immunization
CPT/HCPCS: 36415; 70450; 71045; 72125; 80048; 81001; 84484; 85025; 87086; 90471; 90715; 93005; 99284

== ENCOUNTER 2022-06-04 21:07 | Outpatient (REF) | payer MEDICARE, MEDICAID, SELFPAY ==
[2022-06-04 21:38] LABS: Basophils Absolute Auto 0.1 X10*3/uL (0.0-0.2); Basophils Percent Auto 0.4 % (0-2); Eosinophils Absolute Auto 0.1 X10*3/uL (0.0-0.4); Eosinophils Percent Auto 0.6 % (0-4); Hematocrit 31.4 % (42.0-52.0); Hemoglobin 10.4 g/dl (14.0-18.0); Imm Gran Pct Auto 0.6 % (0.0-0.4); Lymphocytes Absolute Auto 1.4 X10*3/uL (1.2-4.9); Lymphocytes Percent Auto 7.9 % (20-40); MANUAL DIFF FLAG SCAN; Mean Corpuscular HGB Conc 33.1 g/dl (31.0-36.0); Mean Corpuscular Hemoglobin 32.1 pg (27.0-33.0); Mean Corpuscular Volume 96.9 fL (80.0-98.0); Mean Platelet Volume 10.5 fL (9.4-12.4); Monocytes Percent Auto 11.1 % (2-11); Neutrophils Absolute Auto 14.4 x10*3/uL (2.0-8.3); Neutrophils Percent Auto 79.4 % (45-73); Platelet Count 130 X10*3/uL (160-400); Red Blood Count 3.24 X10*6/uL (4.60-5.80); Red Cell Distribution Width 13.4 % (11.0-16.0); SCAN SMEAR FLAG 1; White Blood Count 18.2 X10*3/uL (4.8-10.8)
[2022-06-04 22:17] LABS: SLIDE REVIEW VERIFIED
== END 2022-06-04 21:08 | disposition home or self-care (01) ==
LOC: HO.HSH3E 21:07
PROVIDERS: Visit Provider Nurse Practitioner Acute Care
DX: R31.9 Hematuria, unspecified (principal)
CPT/HCPCS: 36415; 85025

== ENCOUNTER 2022-06-07 05:35 | Outpatient (REF) | payer MEDICARE, MEDICAID, SELFPAY ==
[2022-06-07 09:13] LABS: MANUAL DIFF FLAG NO
[2022-06-07 09:18] LABS: Basophils Absolute Auto 0.1 X10*3/uL (0.0-0.2); Basophils Percent Auto 0.7 % (0-2); Eosinophils Absolute Auto 0.7 X10*3/uL (0.0-0.4); Eosinophils Percent Auto 7.4 % (0-4); Hematocrit 33.2 % (42.0-52.0); Hemoglobin 10.9 g/dl (14.0-18.0); Imm Gran Abs Auto 0.04 X10*3/uL (0.00-0.03); Imm Gran Pct Auto 0.4 % (0.0-0.4); Lymphocytes Absolute Auto 1.9 X10*3/uL (1.2-4.9); Lymphocytes Percent Auto 20.3 % (20-40); Mean Corpuscular HGB Conc 32.8 g/dl (31.0-36.0); Mean Corpuscular Hemoglobin 32.1 pg (27.0-33.0); Mean Corpuscular Volume 97.6 fL (80.0-98.0); Mean Platelet Volume 11.1 fL (9.4-12.4); Monocytes Absolute Auto 1.1 X10*3/uL (0.1-1.2); Monocytes Percent Auto 11.8 % (2-11); Neutrophils Absolute Auto 5.6 x10*3/uL (2.0-8.3); Neutrophils Percent Auto 59.4 % (45-73); Platelet Count 124 X10*3/uL (160-400); Red Cell Distribution Width 13.3 % (11.0-16.0); White Blood Count 9.4 X10*3/uL (4.8-10.8)
== END 2022-06-07 05:36 | disposition home or self-care (01) ==
LOC: HO.HSH3E 05:35
PROVIDERS: Visit Provider Internal Medicine Medical Oncology
DX: D72.829 Elevated white blood cell count, unspecified (principal)
CPT/HCPCS: 36415; 85025

== ENCOUNTER → 2022-07-02 10:53 | Outpatient (BNVA) | payer MEDICARE, MEDICAID, SELFPAY | PROVIDERS: PCP Internal Medicine Medical Oncology; Visit Provider Urology | DX: R33.9 Retention of urine, unspecified (principal); Q54.9 Hypospadias, unspecified; Z79.899 Other long term (current) drug therapy | CPT/HCPCS: 51702; 52000; 99212 ==

== ENCOUNTER 2022-07-16 05:46 | Outpatient (REF) | payer MEDICARE, MEDICAID, SELFPAY ==
[2022-07-16 05:54] LABS: MANUAL DIFF FLAG NO
[2022-07-16 06:27] LABS: INTERNATIONAL NORM RATIO 1.1 (0.9-1.1); Prothrombin Time 12.4 SEC (10.0-13.1)
[2022-07-16 06:30] LABS: Partial Thromboplastin Time 35.3 SEC (26.0-36.4)
[2022-07-16 06:38] LABS: Appearance Urine Clear; Color Urine Yellow; Glucose Urine UA Negative (Negative); Leukocyte Esterase Urine Large (3+) (Negative); Nitrite Urine Positive (Negative); UMIC TRIGGER UA YES; Urine Blood Moderate (2+) (Negative); Urine Ketones Negative (Negative); Urine Protein Negative (Neg-Trace)
[2022-07-16 06:39] LABS: Alanine Aminotransferase 16 U/L (0-40); Albumin Level 3.6 g/dL (3.5-5.0); Alkaline Phosphatase 36 U/L (39-117); Anion Gap 13 (12-20); Aspartate Amino Transferase 16 U/L (5-37); Bilirubin Total 0.7 mg/dL (0.0-1.0); Blood Urea Nitrogen 20 mg/dL (9-16); Calcium 8.7 mg/dL (8.4-10.2); Carbon Dioxide 26 mmol/L (22-29); Chloride 105 mmol/L (96-108); Estimated Glomerular Filt Rate 49; Glucose Random 95 mg/dL (60-115); Potassium 4.1 mmol/L (3.3-5.1); Sodium 140 mmol/L (135-145); Total Protein 5.9 g/dL (6.5-8.0)
[2022-07-16 06:41] LABS: Basophils Absolute Auto 0.1 X10*3/uL (0.0-0.2); Basophils Percent Auto 0.9 % (0-2); Eosinophils Absolute Auto 0.8 X10*3/uL (0.0-0.4); Eosinophils Percent Auto 9.2 % (0-4); Hematocrit 33.9 % (42.0-52.0); Hemoglobin 11.2 g/dl (14.0-18.0); Imm Gran Abs Auto 0.02 X10*3/uL (0.00-0.03); Imm Gran Pct Auto 0.2 % (0.0-0.4); Lymphocytes Absolute Auto 1.8 X10*3/uL (1.2-4.9); Lymphocytes Percent Auto 21.4 % (20-40); Mean Corpuscular Hemoglobin 31.5 pg (27.0-33.0); Mean Corpuscular Volume 95.5 fL (80.0-98.0); Mean Platelet Volume 10.6 fL (9.4-12.4); Monocytes Absolute Auto 0.9 X10*3/uL (0.1-1.2); Monocytes Percent Auto 11.1 % (2-11); Neutrophils Absolute Auto 4.7 x10*3/uL (2.0-8.3); Neutrophils Percent Auto 57.2 % (45-73); Platelet Count 154 X10*3/uL (160-400); Red Blood Count 3.55 X10*6/uL (4.60-5.80); Red Cell Distribution Width 12.5 % (11.0-16.0); White Blood Count 8.2 X10*3/uL (4.8-10.8)
[2022-07-16 06:54] LABS: Prostate Specific Antigen 1.59 ng/mL (<0.05-4.0)
[2022-07-16 07:04] LABS: Bacteria Urine 4+ (None Seen); Other Crystals Urine Present; RBC Urine 0-2 /HPF (0-2); Squamous Epithelial Cell Urine 0-2 /HPF (0-2); WBC Clumps Urine Present; WBC Urine 21-50 /HPF (0-5)
== END 2022-07-16 05:47 | disposition home or self-care (01) ==
LOC: HO.HSH3E 05:46
PROVIDERS: Visit Provider Internal Medicine Medical Oncology
DX: N18.9 Chronic kidney disease, unspecified (principal); N39.9 Disorder of urinary system, unspecified; Z12.5 Encounter for screening for malignant neoplasm of prostate
CPT/HCPCS: 36415; 80053; 81001; 84153; 85025; 85610; 85730

== ENCOUNTER 2022-08-09 10:31 | Day surgery (SDC) | payer MEDICARE, MEDICAID, OTHER, SELFPAY ==
[2022-08-06 11:38] VITALS: BMI 32.3
[2022-08-09 11:34] VITALS: BP 151/75; PULSE 54; RESP 18; TEMP 36.6; O2SAT 96
--- NOTE | 2022-08-09 12:27 | P.CONAN_ITS ---
HPI - Anesthesia Eval Consult details Narrative: rinary retention for suprapubic tube medical clearance on chart [facility] Active Problems Active Problems: All Active Problems (Updated 08/06/22 @ 11:21 by Carla Tejada RN) Acute kidney injury superimposed on CKD (Acute) Acute blood loss anemia (Acute) S/P right hip fracture (Acute) Fracture of femur with routine healing (Acute) Urinary retention with incomplete bladder emptying (Acute) BPH w urinary obs/LUTS (Acute) Male hypospadias (Acute) Overweight (BMI 25.0-29.9) (Acute) Depression (Acute) Urothelial carcinoma of bladder (Acute) Vitamin B12 deficiency (Acute) Vitamin D deficiency (Acute) GERD without esophagitis (Acute) Anemia (Acute) Primary osteoarthritis, right shoulder (Acute) Osteoarthritis of both knees (Acute) Chronic kidney disease, stage III (moderate) (Acute) Impaired fasting glucose (Acute) Elevated liver enzymes (Acute) Benign essential hypertension (Acute) Pure hypercholesterolemia (Acute) Coronary artery disease (Acute) Past Medical History Medical History (Updated 08/06/22 @ 11:21 by Carla Tejada RN) Anemia Benign essential hypertension BPH (benign prostatic hyperplasia) Chronic kidney disease, stage III (moderate) Coronary artery disease Depression Elevated liver enzymes Frequent falls GERD without esophagitis Impaired fasting glucose On beta priscilla at home Osteoarthritis of both knees Overweight (BMI 25.0-29.9) Primary osteoarthritis, right shoulder Pure hypercholesterolemia Subdural hematoma Urothelial carcinoma of bladder Vitamin B12 deficiency Vitamin D deficiency Family History Family History Father CVD (cardiovascular disease) Mother Hypertension Family history of problems with anesthesia: No Surgical History Surgical History (Updated 08/05/22 @ 13:39 by Carla Tejada RN) History of hip surgery History of shoulder surgery History of tonsillectomy History of transurethral resection of bladder tumor (TURBT) History of transurethral resection of prostate History of Problems with Anesthesia: No Social History Social History Household Members: Spouse Housing: House Housing Other:: [place] [facility] [facility] Are you a primary personal care assistant to a significant other at home: No Do you presently have visiting nurse or other home services: Yes Alcohol intake: current Alcohol intake frequency: 0-2 drinks per day Alcohol type: wine Patient Tobacco Use Status: Former Tobacco user Use of substances other than those prescribed or required for medical reasons: No Are you DNR?: Yes Advance Directives: No Advance Directives Information Provided: Yes (Sent from [facility] - Copy on chart) Advance Directives on File: No Recently lost weight without trying: No Eating poorly because of decreased appetite: No Nutrition Risks: No Nutritional Risk service: Yes Meds Allergies Allergy/AdvReac Type Severity Reaction Status Date / Time lisinopril Allergy Unknown Verified 08/05/22 13:38 Home Medications Medication Instructions Recorded Confirmed Last Taken Type aspirin 81 mg tablet,delayed 81 mg PO DAILY 03/25/20 08/05/22 07/03/20 History release atorvastatin 80 mg tablet 80 mg PO BEDTIME 03/25/20 08/05/22 07/02/20 History ezetimibe 10 mg tablet 10 mg PO DAILY 03/25/20 08/05/22 07/03/20 History cholecalciferol (vitamin D3) 125 250 mcg PO DAILY 07/03/20 08/05/22 07/03/20 History mcg (5,000 unit) tablet (Vitamin D3) latanoprost 0.005 % eye drops 1 drp ophthalmic (eye) BEDTIME 07/03/20 08/05/22 0 07/02/20 History vitamins A,C,Q-uvjm-iaserz 2,148 1 tab PO BID 07/03/20 08/05/22 07/03/20 History mcg-113 mg-45 mg-17.4 mg tablet (PreserVision AREDS) acetaminophen 325 mg tablet 650 mg PO Q6H PRN pain/ fever 08/06/22 08/06/22 Unknown History albuterol sulfate 90 mcg/actuation 2 puff inhalation Q4-6H PRN 08/06/22 08/06/22 Unknown History aerosol inhaler (ProAir HFA) Wheezing amlodipine 10 mg tablet 10 mg PO DAILY 08/06/22 08/06/22 Unknown History cyanocobalamin (vitamin B-12) 2,000 mcg PO DAILY 08/06/22 08/06/22 Unknown History 1,000 mcg tablet escitalopram oxalate 5 mg tablet 5 mg PO DAILY 08/06/22 08/06/22 Unknown History hydrochlorothiazide 25 mg tablet 25 mg PO DAILY 08/06/22 08/06/22 Unknown History magnesium oxide 400 mg PO DAILY 08/06/22 08/06/22 Unknown History metoprolol succinate 50 mg 50 mg PO DAILY 08/06/22 08/06/22 Unknown History tablet,extended release 24 hr mirtazapine 15 mg tablet 15 mg PO BEDTIME 08/06/22 08/06/22 Unknown History potassium chloride 10 mEq 10 meq PO DAILY 08/06/22 08/06/22 Unknown History tablet,extended release (K-Tab) Exam Exam Date and Time: August 09, 2022 1227 Height,Weight and Vital Signs: Height 5 ft 7 in Weight 93.667 kg Last Vital Signs Temp 97.9 F 08/09/22 11:34 Pulse 54 08/09/22 11:34 Resp 18 08/09/22 11:34 BP 151/75 H 08/09/22 11:34 Pulse Ox 96 08/09/22 11:34 O2 Del Method Room Air 08/09/22 11:34 Airway Mallampati Class: II TM Dist: >3cm Neck ROM: Full Denture: Upper Loose/Missing/Broken Teeth: Yes (no lowers) Heart: rr Lungs: cta Assessment and Plan Assessment Anesthesia Assessment: Anesthesia Plan Discussed and Chart Reviewed Final Anesthetic Review Family History of Problems with Anesthesia: No History of Problems with Anesthesia: No NPO: Yes ASA Class: III Final Preanesthetic Review: No Changes in Pt Med Stat, Meds/Allgs Chart Reviewed, Consent Obtained/Reviewed and Anes Risks/Benef Reviewed Patient Risk: Intermediate Procedure Risk: Low Anesthetic Plan Anesthetic Plan: GA Disposition: Standard PACU
--- NOTE | 2022-08-09 14:29 | PC.NURSE ---
report given to magdalene victoria rn at this time. at bedside to sign consents.
--- NOTE | 2022-08-09 15:03 | P.HPSUR_ITS ---
Pre-Procedural Eval Section A Date of Service: 08/09/22 The patient is an INPATIENT: No Changes since office visit: No Cold of Flu in the past 2 weeks, No New Medical Problems, No Changes in Medication and No Patient answered all questions The History & Physical has been completed within 30 days and I have reviewed it.: Yes Section B Chief Complaint: Retention of urine, unspecified Relevant Social History: None Present Medications: see Short Stay Collaborative assessment Medical History: Significant History History of Previous Operations: Relevant previous surgery/procedure and date(s) Allergies: Allergies Allergy/AdvReac Type Severity Reaction Status Date / Time lisinopril Allergy Unknown Verified 08/09/22 13:42 Review of Systems Sugical H&P ROS: Negative: Constitution, Cardiovascular, Respiratory, N eurological, Psychiatric, Hem-Onc, Allergic/Immunologic, Gastrointestinal, Genitourinary, Musculoskeletal, Integumentary, Endocrine and Eyes/Ears/Nose/Throat Exam Surgical H&P Exam: Normal: HEENT, Normal: Heart, Normal: Lungs, Normal: Extremities, Normal: Abdomen, Normal: Skin and Normal: Neurological Plan Diagnosis/Plan: Unchanged ( cysto, suprapubic tube) I have reviewed the history and physical and performed a pertinent physical examination on my patient. No changes have occurred unless specified. Time Spent With Patient Time: Total time managing care of this patient today ____ minutes.
--- NOTE | 2022-08-09 15:51 | P.OP_ITS ---
Operative Note Operative Note Date of Service: 08/09/22 Narrative: PreOperative Diagnosis:?neurogenic bladder with hypospadias Post Operative Diagnosis:?neurogenic bladder was hypospadias Procedure:? 1. Cystoscopy 2. Suprapubic tube placement Surgeon: Dr Dewey Grossman Anesthesia:?Sedation plus local Indications for procedure: neurogenic bladder with iatrogenic hypospadias Procedure: After informed consent was verified the patient was brought to the operating room and placed in a supine position.? Anesthesia was administered per protocol. The patient was placed in a modified dorsal lithotomy position and prepped and draped in a sterile fashion. A safety pause was performed confirming patient identity, procedure and antibiotics. A 22 Luxembourgish cystoscope was inserted per urethra. Bladder was examined in its entirety. No abnormalities seen. Air bubble was located at the dome of the bladder. A finder needle was inserted 2 fingerbreaths above the symphysis pubis on the abdomen into the bladder.? The needle was visualized in the bladder via cystoscopy. Local anesthetic was infiltrated subcutaneously around the needle introduction site. A small, 1cm horizontal incision was made.? A trocar introducer was advanced through the abdominal wall into the bladder under visualization. The obturator was removed and a 16 Fr mcpherson catheter placed. 7cc was used to inflate the balloon. The external portion of the trocar was removed. Dressing was placed, the bladder was emptied, and a drainage bag was attached. The patient tolerated the procedure and was transferred in stable condition to the recovery area. Suprapubic tube will be changed in 1 month with a follow-up office visit.
[2022-08-09 16:00] VITALS: BP 121/65; PULSE 53; RESP 16; TEMP 37.2; O2SAT 92
[2022-08-09 16:15] VITALS: BP 146/66; PULSE 54; RESP 14; O2SAT 96
[2022-08-09 16:30] VITALS: BP 153/69; PULSE 56; RESP 15; TEMP 36.8; O2SAT 96
--- NOTE | 2022-08-09 16:45 | PC.NURSE ---
Pt assisted to dress p discharge teaching completed. Pt fitted with leg bag-draining red tinged urine. Pt wheezing with exertion. Dr Wayne at bedside--no new orders. Pt resting in wheelchair.
== END 2022-08-09 16:52 | disposition home or self-care (01) ==
PROVIDERS: PCP Internal Medicine Medical Oncology; Visit Provider Urology
PROC: (CPT 51102; principal; 2022-08-09 12:40)
DX: N31.9 Neuromuscular dysfunction of bladder, unspecified (principal); R33.9 Retention of urine, unspecified; Q54.8 Other hypospadias; C67.9 Malignant neoplasm of bladder, unspecified; I12.9 Hypertensive chronic kidney disease with stage 1 through stage 4 chronic kidney disease, or unspecified chronic kidney disease; N18.30 Chronic kidney disease, stage 3 unspecified; I25.10 Atherosclerotic heart disease of native coronary artery without angina pectoris; E55.9 Vitamin D deficiency, unspecified; E53.8 Deficiency of other specified B group vitamins; R73.01 Impaired fasting glucose; Z79.82 Long term (current) use of aspirin; Z79.899 Other long term (current) drug therapy; Z88.8 Allergy status to other drugs, medicaments and biological substances; Z87.891 Personal history of nicotine dependence; Z98.890 Other specified postprocedural states; Z66 Do not resuscitate
CPT/HCPCS: 51102; J1956; J2250; J2795; J3010

== ENCOUNTER 2022-08-17 05:45 | Outpatient (REF) | payer MEDICARE, MEDICAID, OTHER, SELFPAY ==
[2022-08-17 05:49] LABS: MANUAL DIFF FLAG NO
[2022-08-17 06:08] LABS: Basophils Absolute Auto 0.1 X10*3/uL (0.0-0.2); Basophils Percent Auto 0.5 % (0-2); Eosinophils Absolute Auto 0.5 X10*3/uL (0.0-0.4); Eosinophils Percent Auto 5.7 % (0-4); Hematocrit 33.6 % (42.0-52.0); Hemoglobin 11.5 g/dl (14.0-18.0); Imm Gran Abs Auto 0.03 X10*3/uL (0.00-0.03); Imm Gran Pct Auto 0.3 % (0.0-0.4); Lymphocytes Absolute Auto 1.6 X10*3/uL (1.2-4.9); Lymphocytes Percent Auto 16.8 % (20-40); Mean Corpuscular HGB Conc 34.2 g/dl (31.0-36.0); Mean Corpuscular Hemoglobin 31.9 pg (27.0-33.0); Mean Corpuscular Volume 93.3 fL (80.0-98.0); Mean Platelet Volume 9.9 fL (9.4-12.4); Monocytes Percent Auto 11.2 % (2-11); Neutrophils Percent Auto 65.5 % (45-73); Platelet Count 175 X10*3/uL (160-400); Red Cell Distribution Width 12.1 % (11.0-16.0); White Blood Count 9.2 X10*3/uL (4.8-10.8)
[2022-08-17 06:59] LABS: D Dimer High Sensitivity 460 NG/ML
== END 2022-08-17 05:46 | disposition home or self-care (01) ==
LOC: HO.HSH3E 05:45
PROVIDERS: Visit Provider Internal Medicine Medical Oncology
DX: I25.10 Atherosclerotic heart disease of native coronary artery without angina pectoris (principal)
CPT/HCPCS: 36415; 85025; 85379

== ENCOUNTER 2022-08-17 08:43 | Emergency (ER) | payer OTHER, MEDICARE, SELFPAY ==
--- NOTE | ~2022-08-17 | US_ITS ---
EXAMINATION: US VENOUS ULTRASOUND WITH DOPPLER LOWER EXTREMITY, RIGHT CLINICAL INFORMATION: Swelling and pain elevated d-dimer. COMPARISON: Ultrasound right lower leg venous study 01/20/2009 TECHNIQUE: Ultrasound of the deep veins is performed from the hip to the calf with compression sonography and color and pulse Doppler assessment. Spectral analysis with color-flow imaging is performed. FINDINGS: There is normal venous compression and respiratory variation and augmented flow. The visualized common femoral vein, superficial femoral vein, profunda femoral vein, popliteal vein, and the trifurcation region shows no evidence of deep venous thrombosis. The right peroneal vein is not seen. If the patient's symptoms persist, followup ultrasound in 5 days 7 days might be of value to exclude proximal propagation from a non-visualized calf vein. US/US venous duplex LE RT IMPRESSION: No DVT demonstrated in the right lower extremity.
--- NOTE | 2022-08-17 08:48 | ED_ITS ---
HPI - General Adult General Chief complaint: Extremity Problem Stated complaint: RLE SWELLING FROM SNF PER EMS Time Seen by Provider: 08/17/22 08:48 Source: patient and EMS Mode of arrival: EMS Limitations: no limitations History of Present Illness HPI narrative: Patient is an 86 year old assigned male at with a history of CKD and HTN presenting to the emergency department today with right lower leg swelling and an elevated d-dimer. Patient states that his leg isn't bothering him at all, he has no pain and has hardly noticed the swelling. Patient denies any dizziness, lightheadedness, abdominal pain, nausea, vomiting, fever, chills, blurry vision, double vision, loss of vision, chest pain, difficulty breathing, shortness of breath, back pain, night sweats, pain with urination, increased urinary freque ncy, increased urinary urgency, blood in his urine or stool, syncope or a near syncopal episode, recent trauma or falls, bowel incontinence, bladder incontinence, bowel retention, bladder retention, or any other complaints at this time. Onset (ago): day(s) Location: right and lower extremity Radiation: non-radiation Severity: mild Severity scale (1-10): 2 Relieving factors: none Exacerbating factors: none Associated symptoms: denies other symptoms Treatments prior to arrival: none Related Data Home Medications Medication Instructions Recorded Confirmed aspirin 81 mg tablet,delayed 81 mg PO DAILY 03/25/20 08/05/22 release atorvastatin 80 mg tablet 80 mg PO BEDTIME 03/25/20 08/05/22 ezetimibe 10 mg tablet 10 mg PO DAILY 03/25/20 08/05/22 cholecalciferol (vitamin D3) 125 250 mcg PO DAILY 07/03/20 08/05/22 mcg (5,000 unit) tablet (Vitamin D3) latanoprost 0.005 % eye drops 1 drp ophthalmic (eye) BEDTIME 07/03/20 08/05/22 vitamins A,C,F-szzv-fdiwsc 2,148 1 tab PO BID 07/03/20 08/05/22 mcg-113 mg-45 mg-17.4 mg tablet (PreserVision AREDS) acetaminophen 325 mg tablet 650 mg PO Q6H PRN pain/ fever 08/06/22 08/06/22 albuterol sulfate 90 mcg/actuation 2 puff inhalation Q4-6H PRN 08/06/22 08/06/22 aerosol inhaler (ProAir HFA) Wheezing amlodipine 10 mg tablet 10 mg PO DAILY 08/06/22 08/06/22 cyanocobalamin (vitamin B-12) 2,000 mcg PO DAILY 08/06/22 08/06/22 1,000 mcg tablet escitalopram oxalate 5 mg tablet 5 mg PO DAILY 08/06/22 08/06/22 hydrochlorothiazide 25 mg tablet 25 mg PO DAILY 08/06/22 08/06/22 magnesium oxide 400 mg PO DAILY 08/06/22 08/06/22 metoprolol succinate 50 mg 50 mg PO DAILY 08/06/22 08/06/22 tablet,extended release 24 hr mirtazapine 15 mg tablet 15 mg PO BEDTIME 08/06/22 08/06/22 potassium chloride 10 mEq 10 meq PO DAILY 08/06/22 08/06/22 tablet,extended release (K-Tab) Allergies Allergy/AdvReac Type Severity Reaction Status Date / Time lisinopril Allergy Unknown Verified 08/09/22 13:42 Review of Systems Constitutional: Constitutional: Reports no additional constitutional compl aints, Denies chills, Denies fever(s) and Denies night sweats Eyes: Eyes: Reports no additional eye complaints, Denies blurry vision, Denies change in vision, Denies diplopia, Denies eye discharge, Denies loss of vision and Denies eye pain ENT: Denies dizziness Cardiovascular: Cardiovascular: Reports no additional cardiovascular complaints, Denies chest pain, Denies lightheadedness, Denies Loss of Consciousness and Denies dyspnea Respiratory: Respiratory: Reports no additional respiratory complaints and Denies dyspnea Gastrointestinal: Gastrointestinal: Reports no additional gastrointestinal complaints, Denies abdominal pain, Denies melena, Denies hematochezia, Denies change in bowel habits and Denies change in stool character Genitourinary: Genitourinary: Reports no additional male genitourinary complaints, Denies hematuria, Denies oliguria, Denies difficulty urinating, Denies dysuria, Denies urinary frequency, Denies urinary hesitancy, Denies urinary incontinence and Denies urinary urgency Musculoskeletal: Musculoskeletal: Reports no additional musculoskeletal complaints, Denies numbness and Denies tingling Comments: right lower leg swelling Neurologic: Denies dizziness, Denies loss of vision, Denies numbness and Denies tingling Psychiatric: Psychiatric: Reports no additional psychiatric complaints Endocrine: Endocrine: Reports no additional endocrine complaints Hematologic/Lymphatic: Hematologic/Lymphatic: Reports no additional hematologic/lymphatic complaints Allergic/Immunologic: Allergic/Immunologic: Reports no additional allergic/immunologic complaints PMFSH Past Medical History Attestation statement: The following information was validated with the patient. Source: old records reviewed and nursing notes reviewed Medical History Anemia Benign essential hypertension BPH (benign prostatic hyperplasia) Chronic kidney disease, stage III (moderate) Coronary artery disease Depression Elevated liver enzymes Frequent falls GERD without esophagitis Impaired fasting glucose On beta priscilla at home Osteoarthritis of both knees Overweight (BMI 25.0-29.9) Primary osteoarthritis, right shoulder Pure hypercholesterolemia Subdural hematoma Urothelial carcinoma of bladder Vitamin B12 deficiency Vitamin D deficiency Surgical History History of hip surgery History of shoulder surgery History of tonsillectomy History of transurethral resection of bladder tumor (TURBT) History of transurethral resection of prostate Family History Family History Father CVD (cardiovascular disease) Mother Hypertension Social History Social History Household Members: Spouse Housing: House Housing Other:: [employer] Are you a primary career development coordinator to a significant other at home: No Do you presently have visiting nurse or other home services: Yes Alcohol intake: never Patient Tobacco Use Status: Former Tobacco user Smoked in Last 30 Days: No Use of substances other than those prescribed or required for medical reasons: No Advance Directives: Yes Advance Directives on File: Yes Advance Directives Date on File: 06/29/20 service: Yes Physical Exam ED Vital Signs: Vital Signs - 24 hr 08/17/22 08:52 08/17/22 09:00 Temperature 979 F H 97.9 F Pulse Rate 59 Respiratory Rate 20 Blood Pressure 132/99 H Pulse Oximetry 96 Oxygen Delivery Method Room Air BMI result Body Mass Index 32.1 Const General: cooperative, no acute distress, alert and awake Nutritional Appearance: well nourished Orientation/consciousness: patient oriented x3 Limitations: no limitations HENMT Head: Yes normal to inspection and Yes atraumatic Ears: hearing grossly normal bilaterally and external ears normal General nose exam: Normal external nose present, no nasal discharge noted and no epistaxis Face and sinus: Yes normal facial exam, No abrasion and No laceration Mouth: Normal oral and palatal mucosa present, no drooling and no muffled voice Eyes General: appearance normal, both eyes and all related structures Periorbital: periorbital findings normal Eyelids: Yes eyelids normal Conjunctivae: conjunctivae normal Pupils: Equal, round and reactive pupils present EOM: EOMs intact bilaterally Neck Neck: Yes normal visual inspection, Yes full ROM and Yes no lymphadenopathy Chest Chest palpation & inspection: normal inspection of the chest Resp Effort & Inspection: normal respiratory effort and able to speak in complete sentences GI Inspection: Yes normal to inspection Neuro General: patient oriented x3 and moves all extremities Cranial nerves: Yes Equal, round and reactive pupils present Cognition (Neuro): normal cognition Motor exam (neuro): 5/5 motor strength present throughout Sensory Exam: Normal double simultaneous stimulation for sensation Coordination: [id number] test normal Extrem Other: right lower leg swelling - minimum, no erythema or warmth General: Yes full ROM and Yes capillary refill normal Psych Appearance: grossly normal Mental Status: mental status grossly normal Affect: normal affect Attitude: cooperative Thought process: Normal thought process present Thought content: Normal thought content present Insight: Good insight present (Psych) Medical Decision Making Medical Decision Making MDM Narrative: Patient is an 86 year old assigned male at with a history of CKD and HTN presenting to the emergency department today with right lower leg swelling. Patient's physical exam showed minimal right lower leg swelling but was otherwise unremarkable. Patient's blood work was unremarkable. Patient's RLE US showed no acute process. I explained my physical exam findings as well as all test results to the patient. I answered all questions asked by the patient. I stressed the importance of the patient taking his medication as prescribed. I stressed the importance of the patient following up with his primary care provider. I stressed the importance of the patient returning to the emergency department immediately if his symptoms were to worsen or if he were to develop any dizziness, shortness of breath, difficulty breathing, chest pain, blurry vision, loss of vision, nausea, vomiting, abdominal pain, fever, chills, back pain, or any other complaints. Patient verbalized agreement and understanding with this treatment plan and discharge. Differential Diagnosis Differential Diagnoses: The differential diagnosis associated with the presentation includes right lower leg swelling Lab Data MDM Lab Attestation statement: I reviewed the patient's lab results. 08/17/22 09:32 08/17/22 09:32 Labs: Lab Results 08/17/22 08/17/22 08/17/22 Range/Units 09:32 09:32 09:32 WBC 8.9 (4.8-10.8) X10*3/uL RBC 3.97 L (4.60-5.80) X10*6/uL Hgb 12.4 L (14.0-18.0) g/dl Hct 37.2 L (42.0-52.0) % MCV 93.7 (80.0-98.0) fL MCH 31.2 (27.0-33.0) pg MCHC 33.3 (31.0-36.0) g/dl RDW 12.3 (11.0-16.0) % Plt Count 177 (160-400) X10*3/uL MPV 10.0 (9.4-12.4) fL Immature Gran % (Auto) 0.4 (0.0-0.4) % Neut % (Auto) 70.8 (45-73) % Lymph % (Auto) 14.6 L (20-40) % [place] % (Auto) 9.2 (2-11) % Eos % (Auto) 4.3 H (0-4) % Baso % (Auto) 0.7 (0-2) % Lymph # (Auto) 1.3 (1.2-4.9) X10*3/uL [place] # (Auto) 0.8 (0.1-1.2) X10*3/uL Eos # (Auto) 0.4 (0.0-0.4) X10*3/uL Baso # (Auto) 0.1 (0.0-0.2) X10*3/uL Abs Immat Gran (auto) 0.04 H (0.00-0.03) X10*3/uL Absolute Neuts (auto) 6.3 (2.0-8.3) x10*3/uL Absolute Nucleated RBC 0.000 (0.0-0.012) X10*3/uL Nucleated RBC % (auto) 0.0 (0.0-0.2) /100WBC PT 12.3 (10.0-13.1) SEC INR 1.1 (0.9-1.1) APTT 33.7 (26.0-36.4) SEC Sodium 140 (135-145) mmol/L Potassium 4.0 (3.3-5.1) mmol/L Chloride 104 (96-108) mmol/L Carbon Dioxide 27 (22-29) mmol/L Anion Gap 13 (12-20) BUN 21 H (9-16) mg/dL Creatinine 1.25 (0.5-1.4) mg/dL Estim Creat Clear Calc 46.9 Estimated GFR 55 Random Glucose 108 (60-115) mg/dL Calcium 9.0 (8.4-10.2) mg/dL Magnesium 1.9 (1.6-2.6) mg/dL Total Bilirubin 1.0 (0.0-1.0) mg/dL AST 18 (5-37) U/L ALT 18 (0-40) U/L Alkaline Phosphatase 41 (39-117) U/L Total Protein 6.4 L (6.5-8.0) g/dL Albumin 3.7 (3.5-5.0) g/dL Independent Interpretation I performed an independent interpretation of an: Ultrasound Interpretation: My interpretation is in agreement with the radiologist's impression of this imaging study. EXAMINATION:? US VENOUS ULTRASOUND WITH DOPPLER LOWER EXTREMITY, RIGHT CLINICAL INFORMATION:? Swelling and pain elevated d-dimer. COMPARISON:? Ultrasound right lower leg venous study 01/20/2009 TECHNIQUE: Ultrasound of the deep veins is performed from the hip to the calf with compression sonography and color and pulse Doppler assessment. Spectral analysis with color-flow imaging is performed. FINDINGS: There is normal venous compression and respiratory variation and augmented flow. The visualized common femoral vein, superficial femoral vein, profunda femoral vein, popliteal vein, and the trifurcation region shows no evidence of deep venous thrombosis. The right peroneal vein is not seen. If the patient's symptoms persist, followup ultrasound in 5 days 7 days might be of value to exclude proximal propagation from a non-visualized calf vein. US/US venous duplex LE RT IMPRESSION: No DVT demonstrated in the right lower extremity. Dictated By: Bartolome Wilkins MD Signed By: Electronically signed by Bartolome Wilkins MD 08/17/22 1019 Independent Historian Clinical information obtained from an independent historian. History obtained from or confirmed by: EMS Discharge Plan Discharge Clinical Impression: Localized swelling of lower leg Patient Disposition: Home, Self-Care Instructions: Edema (ED) Additional Instructions: Follow up with your primary care provider. Return to the emergency department immediately if your symptoms worsen or if you develop any dizziness, shortness of breath, difficulty breathing, chest pain, blurry vision, loss of vision, nausea, vomiting, abdominal pain, fever, chills, back pain, or any other complaints. Your right lower leg US showed no evidence of a DVT. If symptoms persist, get a repeat US in 5-7 days. Prescriptions: No Action PreserVision AREDS 7,160 unit- 113 mg-100 unit Tablet 1 tab PO BID cholecalciferol (vitamin D3) [Vitamin D3] 125 mcg (5,000 unit) Tablet 250 mcg PO DAILY latanoprost 0.005 % Drops 1 drp ophthalmic (eye) BEDTIME Rx Instructions: BOTH EYES acetaminophen 325 mg Tablet 650 mg PO Q6H PRN (Reason: pain/ fever) mirtazapine 15 mg tablet 15 mg PO BEDTIME metoprolol succinate 50 mg tablet extended release 24 hr 50 mg PO DAILY potassium chloride [K-Tab] 10 mEq tablet extended release 10 meq PO DAILY hydrochlorothiazide 25 mg Tablet 25 mg PO DAILY escitalopram oxalate 5 mg tablet 5 mg PO DAILY amlodipine 10 mg Tablet 10 mg PO DAILY cyanocobalamin (vitamin B-12) 1,000 mcg Tablet 2,000 mcg PO DAILY magnesium oxide 400 mg magnesium Tablet 400 mg PO DAILY albuterol sulfate [ProAir HFA] 90 mcg/actuation Hfa Aerosol Inhaler 2 puff INHALATION Q4-6H PRN (Reason: Wheezing) atorvastatin 80 mg tablet 80 mg PO BEDTIME aspirin 81 mg tablet,delayed release (DR/EC) 81 mg PO DAILY ezetimibe 10 mg tablet 10 mg PO DAILY Referrals: Ramón Ortega MD [Primary Care Provider] - Print Language: Kazakh
[2022-08-17 08:52] VITALS: BP 132/99; BP 138/72; PULSE 59; PULSE 60; RESP 20; TEMP 526.1; TEMP 979; O2SAT 96; BMI 32.1
[2022-08-17 09:00] VITALS: TEMP 36.6
[2022-08-17 09:36] LABS: MANUAL DIFF FLAG NO
[2022-08-17 09:39] LABS: Basophils Absolute Auto 0.1 X10*3/uL (0.0-0.2); Basophils Percent Auto 0.7 % (0-2); Eosinophils Absolute Auto 0.4 X10*3/uL (0.0-0.4); Eosinophils Percent Auto 4.3 % (0-4); Hematocrit 37.2 % (42.0-52.0); Hemoglobin 12.4 g/dl (14.0-18.0); Imm Gran Abs Auto 0.04 X10*3/uL (0.00-0.03); Imm Gran Pct Auto 0.4 % (0.0-0.4); Lymphocytes Absolute Auto 1.3 X10*3/uL (1.2-4.9); Lymphocytes Percent Auto 14.6 % (20-40); Mean Corpuscular HGB Conc 33.3 g/dl (31.0-36.0); Mean Corpuscular Hemoglobin 31.2 pg (27.0-33.0); Mean Corpuscular Volume 93.7 fL (80.0-98.0); Monocytes Absolute Auto 0.8 X10*3/uL (0.1-1.2); Monocytes Percent Auto 9.2 % (2-11); Neutrophils Absolute Auto 6.3 x10*3/uL (2.0-8.3); Neutrophils Percent Auto 70.8 % (45-73); Platelet Count 177 X10*3/uL (160-400); Red Blood Count 3.97 X10*6/uL (4.60-5.80); Red Cell Distribution Width 12.3 % (11.0-16.0); White Blood Count 8.9 X10*3/uL (4.8-10.8)
[2022-08-17 09:43] LABS: INTERNATIONAL NORM RATIO 1.1 (0.9-1.1); Prothrombin Time 12.3 SEC (10.0-13.1)
[2022-08-17 09:46] LABS: Partial Thromboplastin Time 33.7 SEC (26.0-36.4)
[2022-08-17 10:01] LABS: Alanine Aminotransferase 18 U/L (0-40); Albumin Level 3.7 g/dL (3.5-5.0); Alkaline Phosphatase 41 U/L (39-117); Anion Gap 13 (12-20); Aspartate Amino Transferase 18 U/L (5-37); Blood Urea Nitrogen 21 mg/dL (9-16); Carbon Dioxide 27 mmol/L (22-29); Chloride 104 mmol/L (96-108); Creatinine Clr Calc Pharmacy 46.9; Estimated Glomerular Filt Rate 55; Glucose Random 108 mg/dL (60-115); Magnesium 1.9 mg/dL (1.6-2.6); Sodium 140 mmol/L (135-145); Total Protein 6.4 g/dL (6.5-8.0)
== END 2022-08-17 13:06 | disposition home or self-care (01) ==
PROVIDERS: Physician Assistant Medical; Emergency Provider Emergency Medicine Emergency Medical Services; PCP Internal Medicine Medical Oncology
DX: M79.89 Other specified soft tissue disorders (principal); D68.9 Coagulation defect, unspecified; I12.9 Hypertensive chronic kidney disease with stage 1 through stage 4 chronic kidney disease, or unspecified chronic kidney disease; N18.30 Chronic kidney disease, stage 3 unspecified; I25.10 Atherosclerotic heart disease of native coronary artery without angina pectoris
CPT/HCPCS: 36415; 80053; 83735; 85025; 85610; 85730; 93971; 99284

== ENCOUNTER → 2022-09-10 10:56 | Outpatient (BNVA) | payer MEDICARE, MEDICAID, SELFPAY | PROVIDERS: PCP Internal Medicine Medical Oncology; Visit Provider Urology | DX: Z46.6 Encounter for fitting and adjustment of urinary device (principal); C67.9 Malignant neoplasm of bladder, unspecified; N40.1 Benign prostatic hyperplasia with lower urinary tract symptoms; N13.8 Other obstructive and reflux uropathy; R33.9 Retention of urine, unspecified; Q54.9 Hypospadias, unspecified; Z98.890 Other specified postprocedural states | CPT/HCPCS: 51705; 99212 ==

== ENCOUNTER 2022-12-08 06:40 | Outpatient (REF) | payer MEDICARE, MEDICAID, SELFPAY ==
[2022-12-08 06:55] LABS: Basophils Absolute Auto 0.1 X10*3/uL (0.0-0.2); Basophils Percent Auto 0.8 % (0-2); Eosinophils Absolute Auto 0.5 X10*3/uL (0.0-0.4); Eosinophils Percent Auto 5.5 % (0-4); Hematocrit 35.7 % (42.0-52.0); Imm Gran Abs Auto 0.05 X10*3/uL (0.00-0.03); Imm Gran Pct Auto 0.6 % (0.0-0.4); Lymphocytes Absolute Auto 1.8 X10*3/uL (1.2-4.9); Lymphocytes Percent Auto 19.4 % (20-40); MANUAL DIFF FLAG SCAN; Mean Corpuscular HGB Conc 33.6 g/dl (31.0-36.0); Mean Corpuscular Hemoglobin 31.9 pg (27.0-33.0); Mean Corpuscular Volume 94.9 fL (80.0-98.0); Monocytes Absolute Auto 0.9 X10*3/uL (0.1-1.2); Neutrophils Absolute Auto 5.8 x10*3/uL (2.0-8.3); Neutrophils Percent Auto 63.7 % (45-73); PLT CLUMP 1; Red Blood Count 3.76 X10*6/uL (4.60-5.80); Red Cell Distribution Width 12.7 % (11.0-16.0); SCAN SMEAR FLAG 1
[2022-12-08 07:03] LABS: D Dimer High Sensitivity 174 NG/ML
[2022-12-08 07:08] LABS: Alanine Aminotransferase 16 U/L (0-40); Albumin Level 3.6 g/dL (3.5-5.0); Alkaline Phosphatase 42 U/L (39-117); Anion Gap 11 (12-20); Aspartate Amino Transferase 21 U/L (5-37); Bilirubin Total 0.6 mg/dL (0.0-1.0); Blood Urea Nitrogen 16 mg/dL (9-16); Calcium 9.1 mg/dL (8.4-10.2); Carbon Dioxide 28 mmol/L (22-29); Chloride 105 mmol/L (96-108); Estimated Glomerular Filt Rate > 60; Glucose Random 90 mg/dL (60-115); Potassium 3.8 mmol/L (3.3-5.1); Sodium 140 mmol/L (135-145); Total Protein 6.5 g/dL (6.5-8.0)
[2022-12-08 08:27] LABS: Platelet Count 167 X10*3/uL (160-400); White Blood Count 9.1 X10*3/uL (4.8-10.8)
[2022-12-08 13:07] LABS: SLIDE REVIEW VERIFIED
== END 2022-12-08 06:41 | disposition home or self-care (01) ==
LOC: HO.HSH3E 06:40
PROVIDERS: Visit Provider Internal Medicine Medical Oncology
DX: R60.0 Localized edema (principal)
CPT/HCPCS: 36415; 80053; 85025; 85379

== ENCOUNTER 2022-12-17 05:43 | Outpatient (REF) | payer MEDICARE, MEDICAID, SELFPAY ==
[2022-12-17 06:48] LABS: Cholesterol 85 mg/dL (<200); HDL Cholesterol 29 mg/dL (>40); LDL Cholesterol Calculated 38 mg/dL (<100); Triglycerides 94 mg/dL (<150)
== END 2022-12-17 05:44 | disposition home or self-care (01) ==
LOC: HO.HSH3E 05:43
PROVIDERS: Visit Provider Internal Medicine Medical Oncology
DX: E11.9 Type 2 diabetes mellitus without complications (principal)
CPT/HCPCS: 36415; 80061

== ENCOUNTER 2023-01-03 15:52 | Outpatient (REF) | payer MEDICARE, MEDICAID, SELFPAY | END 2023-01-03 15:53 | disposition home or self-care (01) | LOC: HO.LNP 15:52 | PROVIDERS: Visit Provider Internal Medicine Medical Oncology | DX: J40 Bronchitis, not specified as acute or chronic (principal) | CPT/HCPCS: 87070; 87205 ==

== ENCOUNTER 2023-01-03 20:54 | Inpatient (IN) | payer OTHER, MEDICARE, MEDICAID, SELFPAY ==
--- NOTE | ~2023-01-03 | XR_ITS ---
EXAMINATION: XR CHEST CLINICAL INFORMATION: Respiratory failure. COMPARISON: 01/09/2023. TECHNIQUE: Frontal view of the chest was obtained. FINDINGS: The study is limited due to AP portable technique as well as low lung volumes, elevation of the left hemidiaphragm and body habitus. The cardiac silhouette is enlarged but grossly stable compared to previous. There is a left lower lung field opacity which was present previously associated with elevation of the left hemidiaphragm. There may be minimal atelectatic change at the right lung base. The bony structures and soft tissues are unremarkable. XR/XR chest 1V IMPRESSION: The study is limited due to low lung volumes, elevation of the left hemidiaphragm, technique and body habitus. Stable enlarged cardiac silhouette. Elevation of the left hemidiaphragm associated with the left lung base opacity possibly atelectasis and/or infiltrate. Pleural fluid also a consideration. There appears to be mild atelectatic change at the right lung base.
--- NOTE | ~2023-01-03 | XR_ITS ---
EXAMINATION: XR CHEST CLINICAL INFORMATION: Hypoxia. COMPARISON: January 03, 2023. TECHNIQUE: Frontal view of the chest was obtained. FINDINGS: There is significant elevation of the left hemidiaphragm similar to previous. The cardiomediastinal silhouette is stable. There is opacification throughout the remaining left lung. There is right lower lung field increased markings similar to previous. The bony structures and soft tissues are unremarkable. XR/XR chest 1V IMPRESSION: Elevation of the left hemidiaphragm similar to previous. There is opacification throughout the left lung possibly pleural fluid with atelectasis and/or infiltrate.
--- NOTE | ~2023-01-03 | XR_ITS ---
EXAMINATION: XR CHEST CLINICAL INFORMATION: Hypoxia. Dyspnea. COMPARISON: 01/07/2023 TECHNIQUE: Frontal view of the chest was obtained. FINDINGS: Asymmetric elevation of left hemidiaphragm redemonstrated. Improved aeration of the left upper lung with persistent left pleural effusion and accompanying atelectasis, though decreased from prior. Right basilar streaky opacities presumably subsegmental atelectasis. Cardiac silhouette incompletely assessed no acute osseous abnormality is. XR/XR chest 1V IMPRESSION: * Improved aeration of the left upper lung with persistent left pleural effusion and accompanying atelectasis. * Right basilar streaky opacities presumably subsegmental atelectasis.
--- NOTE | ~2023-01-03 | CT_ITS ---
EXAMINATION: CT CHEST WITHOUT CONTRAST CLINICAL INFORMATION: Respiratory failure. COMPARISON: None available. TECHNIQUE: Multidetector volumetric CT imaging of the chest was done. Axial MIP volume rendering provided. Sagittal and coronal reformatted images were obtained. This CT examination was performed using dose optimization techniques as appropriate, variously including the following: *Automated exposure control *Adjustment of mA and/or kV according to patient size (this includes techniques or standardized protocols for targeted exams where dose is matched to indication/reason for exam; i.e. extremities or head) *Use of iterative reconstruction technique DLP: 334 mGy-cm FINDINGS: [employer]: Heart obscured by elevated left hemidiaphragm, question left base effusion/consolidation. Right base atelectasis. Right shoulder surgical screw. Calcification lateral to the proximal right humerus. LUNGS: Trachea is somewhat C-shaped. Filling defects identified in the right mainstem bronchus, axial 23 and 24/64. Right upper and lower atelectasis. Left lower lobe consolidation. MEDIASTINUM: No thyroid abnormality. 1 cm short axis pretracheal lymph node. Nonenlarged heart. No pericardial effusion. Degree of coronary calcifications: Severe. Nonaneurysmal aorta with atherosclerotic calcifications. Ectatic pulmonary arteries. PLEURA: Bilateral pleural effusions, left greater than right. AXILLA: No lymphadenopathy. UPPER ABDOMEN: Layering gallstones within otherwise unremarkable gallbladder. Likely hemodynamically significant dense atherosclerotic calcifications involving the visualized left renal artery and mesenteric arteries. OSSEOUS STRUCTURES: Demineralization. Old right posterior rib fractures. Partial visualization of probable right sided L1 hemangioma. CT/CT chest wo IV con IMPRESSION: Low lung volumes, exacerbated by left hemidiaphragmatic elevation, bilateral effusions, left greater than right. Right atelectasis, left consolidation. Right mainstem bronchus soft tissue density, question mucous, underlying lesion not entirely excluded. Fleischner guidelines were followed.
[2023-01-03 21:03] VITALS: BP 130/73; BP 147/67; PULSE 82; RESP 35; TEMP 36.4; O2SAT 97; BMI 33.4
[2023-01-03 21:13] VITALS: PULSE 79; RESP 27; O2SAT 93
[2023-01-03 21:14] VITALS: BP 147/67; PULSE 82; RESP 30; TEMP 36.4; O2SAT 96
--- NOTE | 2023-01-03 21:32 | ED.SOB ---
HPI - SOB/Dyspnea General Chief Complaint: Dyspnea Stated Complaint: DIFF BREATHING Time Seen by Provider: 01/03/23 21:23 Source: patient, EMS, RN notes reviewed and old records reviewed Mode of arrival: EMS Limitations: no limitations History of Present Illness HPI Narrative: 84-year-old male with PMH pertinent for asthma, HTN, CKD, CAD, depression, oa, HLD. [facility] by ambulance for evaluation of 3 days of shortness of breath with coughing and hypoxic on the room air at 87%, no documented fever or chills or chest pain. Patient was given Augmentin for presumed bronchitis for the past 3 days with no improvement. Related Data Home Medications Medication Instructions Recorded Confirmed atorvastatin 80 mg tablet 80 mg PO BEDTIME 03/25/20 08/05/22 ezetimibe 10 mg tablet 10 mg PO DAILY 03/25/20 08/05/22 cholecalciferol (vitamin D3) 125 250 mcg PO DAILY 07/03/20 08/05/22 mcg (5,000 unit) tablet (Vitamin D3) latanoprost 0.005 % eye drops 1 drp ophthalmic (eye) BEDTIME 07/03/20 08/05/22 vitamins A,C,P-vmve-vgtvuu 2,148 1 tab PO BID 07/03/20 08/05/22 mcg-113 mg-45 mg-17.4 mg tablet (PreserVision AREDS) acetaminophen 325 mg tablet 650 mg PO Q6H PRN pain/ fever 08/06/22 08/06/22 albuterol sulfate 90 mcg/actuation 2 puff inhalation Q4-6H PRN 08/06/22 08/06/22 aerosol inhaler (ProAir HFA) Wheezing amlodipine 10 mg tablet 10 mg PO DAILY 08/06/22 08/06/22 cyanocobalamin (vitamin B-12) 2,000 mcg PO DAILY 08/06/22 08/06/22 1,000 mcg tablet escitalopram oxalate 5 mg tablet 5 mg PO DAILY 08/06/22 08/06/22 hydrochlorothiazide 25 mg tablet 25 mg PO DAILY 08/06/22 08/06/22 magnesium oxide 400 mg PO DAILY 08/06/22 08/06/22 metoprolol succinate 50 mg 50 mg PO DAILY 08/06/22 08/06/22 tablet,extended release 24 hr mirtazapine 15 mg tablet 15 mg PO BEDTIME 08/06/22 08/06/22 potassium chloride 10 mEq 10 meq PO DAILY 08/06/22 08/06/22 tablet,extended release (K-Tab) folic acid 1 mg tablet 1 mg PO DAILY 09/10/22 prednisone 20 mg PO DAILY 01/03/23 01/03/23 Allergies Allergy/AdvReac Type Severity Reaction Status Date / Time lisinopril Allergy Unknown Verified 09/10/22 11:38 Review of Systems Review of Systems: All other systems are reviewed and are negative Constitutional: Reports as per HPI and Reports no additional constitutional complaints Eyes: Reports as per HPI and Reports no additional eye complaints Reports system reviewed and no additional complaints, except as documented Cardiovascular: Reports as per HPI and Reports no additional cardiovascular complaints Respiratory: Reports as per HPI and Reports no additional respiratory complaints Gastrointestinal: Reports as per HPI and Reports no additional gastrointestinal complaints Genitourinary: Reports no additional female genitourinary complaints Musculoskeletal: Reports no additional musculoskeletal complaints Skin/Breast: Reports system reviewed and no additional complaints, except as docu Psychiatric: Reports no additional psychiatric complaints Endocrine: Reports no additional endocrine complaints Hematologic/Lymphatic: Reports no additional hematologic/lymphatic complaints Allergic/Immunologic: Reports no additional allergic/immunologic complaints Reports system reviewed and no additional complaints, except as documented and Reports Abnormal speech present [facility] Past Medical History Medical History BPH (benign prostatic hyperplasia) Frequent falls On beta priscilla at home Overweight (BMI 25.0-29.9) Depression Urothelial carcinoma of bladder Vitamin B12 deficiency Vitamin D deficiency GERD without esophagitis Anemia Primary osteoarthritis, right shoulder Osteoarthritis of both knees Chronic kidney disease, stage III (moderate) Impaired fasting glucose Elevated liver enzymes Subdural hematoma Benign essential hypertension Pure hypercholesterolemia Coronary artery disease Surgical History History of tonsillectomy History of transurethral resection of bladder tumor (TURBT) History of hip surgery History of transurethral resection of prostate History of shoulder surgery Family History Family History Father CVD (cardiovascular disease) Mother Hypertension Social History Social History Household Members: Spouse Housing: House Housing Other:: [facility] Are you a primary floor care specialist to a significant other at home: No Do you presently have visiting nurse or other home services: Yes Alcohol intake: never Patient Tobacco Use Status: Former Tobacco user Smoked in Last 30 Days: No Use of substances other than those prescribed or required for medical reasons: No Advance Directives: Yes Advance Directives on File: Yes Advance Directives Date on File: 06/29/20 service: Yes Physical Exam Vital Signs: Vital Signs: Last Vital Signs Temp 97.6 F 01/03/23 21:14 Pulse 82 01/03/23 21:14 Resp 30 H 01/03/23 21:14 BP 147/67 H 01/03/23 21:14 Pulse Ox 96 01/03/23 21:14 O2 Del Method Nasal Cannula 01/03/23 21:14 O2 Flow Rate 4 01/03/23 21:14 Oxygen Flow Rate 4 01/03/23 21:03 BMI result Body Mass Index 33.4 Vital signs have been reviewed and appear to be correct. Blood pressure elevated. Heart rate normal. Respiratory rate normal. Temperature normal. Oxygen saturation normal. Appearance: Alert. Oriented X3. Acute respiratory distress Head: Normal external exam. Normocephalic. Atraumatic. No Lange signs noted. No raccoon eyes noted Eyes: PERRLA. EOMI. Conjunctiva and sclera normal. Eyelids normal. ENT: TM's Normal. Pharynx normal. Uvula midline. Moist mucous membranes. No trismus noted. No drooling noted. No muffled voice noted. Neck: Normal inspection. Neck supple. FROM. No adenopathy. Thyroid Normal. No meningeal signs. No neck mass noted. CVS: Normal heart rate and rhythm. Heart sound normal. No murmurs noted. Pulses normal throughout. Respiratory: Acute respiratory distress. Painless inspiration. Breath sounds normal. Prolonged expiration with bilateral diffuse expiratory wheezing. Chest nontender. No accessory muscle usage noted or decreased air movement noted. Abdomen: Soft and nontender. Bowel sounds normal in all 4 quadrants. No distention noted. No organomegaly noted. No visible injury noted. Back: No CVA tenderness. Full range of motion noted. Skin: Skin warm and dry. Normal skin color. Normal skin turgor. No rashes/lesions/lacerations noted. Extremities: No lower extremity edema. Extremities exhibit normal range of motion. Extremities nontender. Neuro: Oriented X 3. Cranial nerve exam: II-XII are grossly intact No motor deficit. No sensory deficit. Reflexes normal. Course Course Course Narrative: Left lower lobe pneumonia with acute asthma exacerbation patient failed oral antibiotic for the past 3 days, start the patient on Zosyn and the Cerumenex for atypical infection. Reevaluation(s) Reevaluation #1: Patient meets criteria for SARs, I think patient has left lower lobe pneumonia which was not confirmed by the radiologist patient received Zosyn and Zithromax, no criteria for septic shock. Time: 22:27 Medications Administered Generic Name Dose Route Start Last Admin Trade Name Freq PRN Reason Stop Dose Admin Sodium Chloride 1,000 mls @ 999 mls/hr 01/03/23 21:42 01/03/23 21:50 Ns IV 01/03/23 22:42 999 mls/hr .Q1H1M ONE Administration Discontinued Medications Generic Name Dose Route Start Last Admin Trade Name Freq PRN Reason Stop Dose Admin Albuterol Sulfate 5 mg/ 7.5 mg 01/03/23 21:11 01/03/23 21:13 Albuterol Sulfate 2.5 mg INHALE 01/03/23 21:12 7.5 mg ONCE ONE Administration Piperacillin Sod/Tazobactam 50 mls @ 100 mls/hr 01/03/23 21:35 01/03/23 21:46 Sod 3.375 gm/ Sodium Chloride IV 01/03/23 22:04 100 mls/hr ONCE ONE Administration Methylprednisolone Sodium Succinate 125 mg 01/03/23 21:35 01/03/23 21:46 Methylprednisolone Sod Succ 125 Mg/2 Ml Vial IVPUSH 01/03/23 21:36 125 mg ONCE ONE Administration Medical Decision Making Differential Diagnosis Differential Diagnoses: The differential diagnosis associated with the presentation includes (Pneumonia, sepsis, septic shock, CHF, electrolyte abnormality, severe anemia.) Admission/Observation Consideration of admission/observation: Escalation of care including admission/observation considered Consult Healthcare Provider Management of the patient was discussed with: Hospitalist (Dr. Vega) Lab Data MDM Lab Attestation statement: I reviewed the patient's lab results. 01/03/23 21:45 01/03/23 21:44 Labs: Lab Results 01/03/23 01/03/23 Range/Units 21:44 21:45 WBC 16.3 H (4.8-10.8) X10*3/uL RBC 3.71 L (4.60-5.80) X10*6/uL Hgb 11.8 L (14.0-18.0) g/dl Hct 35.4 L (42.0-52.0) % MCV 95.4 (80.0-98.0) fL MCH 31.8 (27.0-33.0) pg MCHC 33.3 (31.0-36.0) g/dl RDW 13.2 (11.0-16.0) % Plt Count 161 (160-400) X10*3/uL MPV 9.9 (9.4-12.4) fL Immature Gran % (Auto) 0.6 H (0.0-0.4) % Neut % (Auto) 78.2 H (45-73) % Lymph % (Auto) 8.5 L (20-40) % [place] % (Auto) 12.4 H (2-11) % Eos % (Auto) 0.1 (0-4) % Baso % (Auto) 0.2 (0-2) % Lymph # (Auto) 1.4 (1.2-4.9) X10*3/uL [place] # (Auto) 2.0 H (0.1-1.2) X10*3/uL Eos # (Auto) 0.0 (0.0-0.4) X10*3/uL Baso # (Auto) 0.0 (0.0-0.2) X10*3/uL Abs Immat Gran (auto) 0.10 H (0.00-0.03) X10*3/uL Absolute Neuts (auto) 12.8 H (2.0-8.3) x10*3/uL Absolute Nucleated RBC 0.000 (0.0-0.012) X10*3/uL Nucleated RBC % (auto) 0.0 (0.0-0.2) /100WBC Smear Tech's Comments VERIFIED Sodium 139 (135-145) mmol/L Potassium 4.4 (3.3-5.1) mmol/L Chloride 102 (96-108) mmol/L Carbon Dioxide 25 (22-29) mmol/L Anion Gap 16 (12-20) BUN 26 H (9-16) mg/dL Creatinine 1.17 (0.5-1.4) mg/dL Estim Creat Clear Calc 50.1 Estimated GFR 59 Random Glucose 124 H (60-115) mg/dL Calcium 9.5 (8.4-10.2) mg/dL COVID-19 (LIDA) Negative (Negative) COVID-19 Clin Com See Note Influenza Type A (CHINO) Negative (Negative) Influenza Type B (CHINO) Negative (Negative) Influenza A & B Note See Note Independent Interpretation I performed an independent interpretation of an: EKG (Probable sinus rhythm at 80 beats per minute, occasional PVCs, intervals within normal, nonspecific ST-T changes, no significant change from previous EKG.) and Plain X-Ray (Chest: Left lower lobe pneumonia) Radiology Impression Discussion of test interpretation with radiology: I have reviewed the radiologist's reading. (1. Stable elevation left hemidiaphragm. 2. Left basilar atelectasis. 3. Chronic interstitial lung markings. ) Prescription Management I considered prescription management with: Antibiotic Chronic Conditions Patient?s care impacted by: Other (Asthma) Discharge Plan Discharge Clinical Impression: Pneumonia Patient Disposition: Admitted As Inpatient
[2023-01-03] MEDS: methylPREDNISolone Sod Succ 125 MG/2 ML VIAL IVPUSH (21:46)
--- NOTE | 2023-01-03 22:36 | PM.IMHP ---
History of Present Illness Date of Service: 01/03/23 Chief Complaint: Dyspnea This is a 87-year-old male with pertinent history of COPD not on home oxygen, essential hypertension, mixed hyperlipidemia, CKD stage 3, mood disorder who was sent to the emergency department for evaluation of dyspnea and hypoxemia. [facility] was sent to the ER as he was found to be hypoxemic in the 80s. Patient has been having 3 days of nonproductive cough and wheezing. Has associated dyspnea, worse with exertion. Patient states his cough is mostly nonproductive but intermittently he has some mucus. He was given 3 days of Augmentin for bronchitis without any relief. He continued to have wheezing. Patient denies fever, chills, chest discomfort, palpitations, nausea, vomiting, abdominal pain, changes in urinary or bowel habits. In the emergency department, patient was found to be hypoxemic and requiring 4 L supplemental oxygen Review of Systems Constitutional: Constitutional: Reports fatigue, Reports lethargy and Reports malaise Cardiovascular: Cardiovascular: Reports dyspnea on exertion Respiratory: Respiratory: Reports cough, Reports dyspnea on exertion and Reports wheezing Gastrointestinal: Gastrointestinal: Reports no additional gastrointestinal complaints Genitourinary: Genitourinary: Reports no additional male genitourinary complaints Endocrine: Endocrine: Reports fatigue Allergic/Immunologic: Allergic/Immunologic: Reports wheezing [facility] Medical History BPH (benign prostatic hyperplasia) Frequent falls On beta priscilla at home Overweight (BMI 25.0-29.9) Depression Urothelial carcinoma of bladder Vitamin B12 deficiency Vitamin D deficiency GERD without esophagitis Anemia Primary osteoarthritis, right shoulder Osteoarthritis of both knees Chronic kidney disease, stage III (moderate) Impaired fasting glucose Elevated liver enzymes Subdural hematoma Benign essential hypertension Pure hypercholesterolemia Coronary artery disease Family History Father CVD (cardiovascular disease) Mother Hypertension Surgical History History of tonsillectomy History of transurethral resection of bladder tumor (TURBT) History of hip surgery History of transurethral resection of prostate History of shoulder surgery Social History Household Members: Spouse Housing: House Housing Other:: [facility] Are you a primary childcare director to a significant other at home: No Do you presently have visiting nurse or other home services: Yes Alcohol intake: never Patient Tobacco Use Status: Former Tobacco user Smoked in Last 30 Days: No Use of substances other than those prescribed or required for medical reasons: No Advance Directives: Yes Advance Directives on File: Yes Advance Directives Date on File: 06/29/20 service: Yes Meds Allergies Allergy/AdvReac Type Severity Reaction Status Date / Time lisinopril Allergy Unknown Verified 09/10/22 11:38 Active Medications: Current Medications Albuterol/Ipratropium (Albuterol/Iprat 2.5/0.5mg 3 Ml Ampul.Neb) 3 ml INHALE RQ4H WHILE AWAKE IDANIA Albuterol/Ipratropium (Albuterol/Iprat 2.5/0.5mg 3 Ml Ampul.Neb) 3 ml INHALE Q4H PRN PRN Reason: Wheezing Azithromycin 500 mg/ Sodium (Chloride) 250 mls @ 125 mls/hr IV ONCE ONE Stop: 01/03/23 23:34 Sodium Chloride (Ns) 1,000 mls @ 999 mls/hr IV .Q1H1M ONE Stop: 01/03/23 22:42 Last Admin: 01/03/23 21:50 Dose: 999 mls/hr Home Medications Medication Instructions Recorded Confirmed Last Taken Type atorvastatin 80 mg tablet 80 mg PO BEDTIME 03/25/20 01/03/23 01/03/23 History ezetimibe 10 mg tablet 10 mg PO DAILY 03/25/20 01/03/23 01/03/23 History cholecalciferol (vitamin D3) 125 250 mcg PO DAILY 07/03/20 01/03/23 01/03/23 History mcg (5,000 unit) tablet (Vitamin D3) latanoprost 0.005 % eye drops 1 drp ophthalmic (eye) BEDTIME 07/03/20 01/03/23 01/03/23 History vitamins A,C,K-vifz-zbwlbo 2,148 1 tab PO BID 07/03/20 01/03/23 01/03/23 History mcg-113 mg-45 mg-17.4 mg tablet (PreserVision AREDS) acetaminophen 325 mg tablet 650 mg PO Q6H PRN pain/ fever 05/12/23 10/09/23 10/09/23 History albuterol sulfate 90 mcg/actuation 2 puff inhalation Q4-6H PRN 08/06/22 01/03/23 01/03/23 History aerosol inhaler (ProAir HFA) Wheezing amlodipine 10 mg tablet 10 mg PO DAILY 08/06/22 01/03/23 01/03/23 History cyanocobalamin (vitamin B-12) 2,000 mcg PO DAILY 08/06/22 01/03/23 01/03/23 History 1,000 mcg tablet escitalopram oxalate 5 mg tablet 5 mg PO DAILY 08/06/22 01/03/23 01/03/23 History hydrochlorothiazide 25 mg tablet 25 mg PO DAILY 08/06/22 01/03/23 01/03/23 History magnesium oxide 400 mg PO DAILY 08/06/22 01/03/23 01/03/23 History metoprolol succinate 50 mg 50 mg PO DAILY 08/06/22 01/03/23 01/03/23 History tablet,extended release 24 hr mirtazapine 15 mg tablet 15 mg PO BEDTIME 08/06/22 01/03/23 01/03/23 History potassium chloride 10 mEq 10 meq PO DAILY 08/06/22 01/03/23 01/03/23 History tablet,extended release (K-Tab) folic acid 1 mg tablet 1 mg PO DAILY 09/10/22 01/03/23 01/03/23 History prednisone 20 mg PO DAILY 01/03/23 01/03/23 01/03/23 History Physical Exam Vital Signs and Narrative: Vital Signs: Last Vital Signs Temp 97.6 F 01/03/23 21:14 Pulse 82 01/03/23 21:14 Resp 30 H 01/03/23 21:14 BP 147/67 H 01/03/23 21:14 Pulse Ox 96 01/03/23 21:14 O2 Del Method Nasal Cannula 01/03/23 21:14 O2 Flow Rate 4 01/03/23 21:14 Oxygen Flow Rate 4 01/03/23 21:03 BMI result Body Mass Index 33.4 Elderly male lying in bed in mild distress on supplemental oxygen Neck supple, no JVD Regular rate and rhythm, S1-S2 heard Bilateral wheezing without crackles Abdomen soft nontender, no guarding, no rigidity Patient is awake, alert and oriented to self, place, time and person ; no focal motor deficit Psych: Normal mood No pedal edema Results Labs 01/03/23 21:45 01/03/23 21:44 Labs: Laboratory Results - last 24 hr 01/03/23 01/03/23 21:44 21:45 MCV 95.4 MCH 31.8 MCHC 33.3 RDW 13.2 Plt Count 161 MPV 9.9 Immature Gran % (Auto) 0.6 H Neut % (Auto) 78.2 H Lymph % (Auto) 8.5 L [place] % (Auto) 12.4 H Eos % (Auto) 0.1 Baso % (Auto) 0.2 Lymph # (Auto) 1.4 [place] # (Auto) 2.0 H Eos # (Auto) 0.0 Baso # (Auto) 0.0 Abs Immat Gran (auto) 0.10 H Absolute Neuts (auto) 12.8 H Absolute Nucleated RBC 0.000 Nucleated RBC % (auto) 0.0 Smear Tech's Comments VERIFIED Anion Gap 16 Estim Creat Clear Calc 50.1 Estimated GFR 59 Random Glucose 124 H Lactic Acid 2.9 H* Calcium 9.5 COVID-19 (LIDA) Negative COVID-19 Clin Com See Note Influenza Type A (CHINO) Negative Influenza Type B (CHINO) Negative Influenza A & B Note See Note Imaging Radiologist's Impressions: Impressions Chest X-Ray 01/03/23 21:27 IMPRESSION: 1. Stable elevation left hemidiaphragm. 2. Left basilar atelectasis. 3. Chronic interstitial lung markings. Assessment and Plan (1) Hypoxemia: Status: Acute (2) COPD exacerbation: Status: Acute Plan This is a 87-year-old male with pertinent history of COPD not on home oxygen, essential hypertension, mixed hyperlipidemia, CKD stage 3, mood disorder who was sent to the emergency department for evaluation of dyspnea and hypoxemia. #. Acute hypoxemic respiratory failure due to acute exacerbation of COPD. Will admit patient with supplemental oxygen. Scheduled and p.r.n. DuoNebs. Initiating systemic steroids. Monitor oxygen saturation and wean as tolerated. Maintain oxygen saturation greater than 88%. No concern for bacterial superinfection. COVID-19 negative #. Reactive leukocytosis in the setting of above. Defer antibiotics #. Acute lactic acidosis due to hypoxemia. No sepsis #. Essential hypertension. Continue home antihypertensives #. Mixed hyperlipidemia. On statin and ezetimibe #. Mood disorder. Continue home mood stabilizers Med rec pending DNR/DNI Cardiac diet Admit as inpatient and will require two night minimum hospital stay for supplemental oxygen Time Spent With Patient Time: Total time managing care of this patient today ____ minutes. Quality Stroke Does the patient have a stroke diagnosis?: No VTE Prior VTE?: No VTE Risk Level:: Medical - moderate - high VTE Device Contraindication: Treatment Not Indicated VTE Drug Contraindication: N/A - Med Ordered
[2023-01-03] MEDS: methylPREDNISolone Sod Succ 40 MG/ML VIAL IVPUSH (22:50)
--- NOTE | 2023-01-03 23:03 | PC.NURSE ---
Pt found at 83% on 4 LPM NC. I placed pt on an oximask at 7 LPM and O2 increased to 94%. MD Vega aware
[2023-01-03 23:24] VITALS: BP 129/50; PULSE 89; RESP 22; TEMP 36.8; O2SAT 94
--- NOTE | 2023-01-03 23:26 | MHC.EDTECH ---
THIS PCT ASSUMED CARE OF PT AT 2300 ,VITALS TAKEN ,PT AWAKE RESTING QUIETLY IN BED ,NO APPARENT DISTRESS AT THIS TIME ,WILL CONTINUE TO MONITOR .
[2023-01-03] MEDS: Enoxaparin Sodium 40 MG/0.4 ML SYRINGE SUBCUT (23:28)
--- NOTE | 2023-01-03 23:58 | MHC.EDTECH ---
PATIENT URINE SAMPLE COLLECTED AND SENT TO LAB .
[2023-01-04] VITALS (10 sets, daily range): BP systolic 126–158; BP diastolic 62–76; PULSE 72–97; RESP 14–24; TEMP 36.3–36.8; O2SAT 94–98; BMI 32.5
--- NOTE | 2023-01-04 00:43 | MHC.EDTECH ---
PATIENT REPEATED LACTIC DRAWN AND SENT TO LAB .
--- NOTE | 2023-01-04 04:27 | PC.NURSE ---
Pt found to have auditory wheezing. Slight increase in work of breathing. O2 sat is good at 96% with oximask. MD and RT aware. RT to assess pt and administer PRN nebulizer.
--- NOTE | 2023-01-04 04:41 | MHC.EDTECH ---
0400 rounding done ,vitals taken ,pt was reposition and boosted up in bed .
--- NOTE | 2023-01-04 04:57 | PC.NURSE ---
Spoke with Kristan from [facility] who was asking for updates. Informed her pt will be staying with us for dyspnea, pt needs to be on oxygen, and will be getting IV antibiotics while inpatient.
[2023-01-04 05:38] LABS: Anion Gap 17 (12-20); Blood Urea Nitrogen 25 mg/dL (9-16); Calcium 9.3 mg/dL (8.4-10.2); Carbon Dioxide 22 mmol/L (22-29); Chloride 103 mmol/L (96-108); Creatinine Clr Calc Pharmacy 49.7; Estimated Glomerular Filt Rate 59; Glucose Random 215 mg/dL (60-115); Potassium 4.3 mmol/L (3.3-5.1); Sodium 138 mmol/L (135-145)
--- NOTE | 2023-01-04 06:17 | MHC.EDTECH ---
0600 rounding done ,vitals taken ,mcpherson cathether empty 450 ml ,pt sleeping ,n continuous shelter monitor ,no apparent distress at this time ,will continue to monitor ,pt reposition and boosted up in bed .
--- NOTE | 2023-01-04 08:54 | PC.NURSE ---
assumed care of pt at 0700. pt a&o pleasant, calm, and cooperative. pt difficult to understand without dentures. puree or ground diet preferred unless dentures brought in. pt able to feed himself without difficulty. pt on 4L O2 NC/oxymask due to pt tending to mouth breathe. pt sitting straight up in bed, rr even/unlabored. in no apparent distress. audible wheezing/gurgling. plan of care ongoing. report given to ALEX Sorto.
[2023-01-04] MEDS: guaiFENesin 100 MG/5 ML LIQUID 10 ML PO ×3 (10:29→21:25)
--- NOTE | 2023-01-04 10:33 | HO.PM.IMPN ---
Subjective Subjective Date of Service: 01/04/23 Interval History: f/u on acute rep failure, hypoxia, uti interval history, o2 requirement going down, Physical Exam Vital Signs: Vital Signs: Last Vital Signs Temp 98 F 01/04/23 09:19 Pulse 84 01/04/23 09:19 Resp 22 H 01/04/23 09:19 BP 158/76 H 01/04/23 09:19 Pulse Ox 97 01/04/23 09:19 O2 Del Method Nasal Cannula 01/04/23 09:19 O2 Flow Rate 3 01/04/23 09:19 Oxygen Flow Rate 4 01/03/23 21:03 BMI result Body Mass Index 32.5 Const: Other: General: AO X 3, no acute distress Resp: sandhya rhonchi CVS: S1,S2,RRR GI: +BS, NT, no distention Skin: No rash Neuro: motor grossly intact Psych: appropriate affect Objective Data Active Medications Acetaminophen (Acetaminophen 325 Mg Tablet) 650 mg PO Q6H PRN PRN Reason: Pain, Mild (Pain Scale 1-3) Albuterol/Ipratropium (Albuterol/Iprat 2.5/0.5mg 3 Ml Ampul.Neb) 3 ml INHALE RQ4H WHILE AWAKE [facility] Last Admin: 01/04/23 07:21 Dose: 3 ml Documented By: ZOE Albuterol/Ipratropium (Albuterol/Iprat 2.5/0.5mg 3 Ml Ampul.Neb) 3 ml INHALE Q4H PRN PRN Reason: Wheezing Amlodipine Besylate (Amlodipine Besylate 10 Mg Tablet) 10 mg PO DAILY [facility]; Protocol Last Admin: 01/04/23 09:28 Dose: 10 mg Documented By: BRET Atorvastatin Calcium (Atorvastatin Calcium 80 Mg Tablet) 80 mg PO BEDTIME [facility] Cyanocobalamin (Cyanocobalamin (Vitamin B-12) 1,000 Mcg Tablet) 2,000 mcg PO DAILY [facility] Last Admin: 01/04/23 09:28 Dose: 2,000 mcg Documented By: BRET Ezetimibe (Ezetimibe 10 Mg Tablet) 10 mg PO DAILY [facility] Last Admin: 01/04/23 09:29 Dose: 10 mg Documented By: BRET Enoxaparin Sodium (Enoxaparin Sodium 40 Mg/0.4 Ml Syringe) 40 mg SUBCUT Q24H [facility] Last Admin: 01/03/23 23:28 Dose: 40 mg Documented By: ELLEN Escitalopram Oxalate (Escitalopram Oxalate 5 Mg Tablet) 5 mg PO DAILY [facility] Last Admin: 01/04/23 09:28 Dose: 5 mg Documented By: BRET Folic Acid (Folic Acid 1 Mg Tablet) 1 mg PO DAILY [facility] Last Admin: 01/04/23 09:28 Dose: 1 mg Documented By: ASHISHEMA Guaifenesin (Guaifenesin 100 Mg/5 Ml Liquid) 10 ml PO Q4H PRN PRN Reason: Cough Last Admin: 01/04/23 10:29 Dose: 10 ml Documented By: COTEMA Hydrochlorothiazide (Hydrochlorothiazide 25 Mg Tablet) 25 mg PO DAILY [facility]; Protocol Last Admin: 01/04/23 09:29 Dose: 25 mg Documented By: COTEMA Azithromycin 500 mg/ Sodium (Chloride) 250 mls @ 125 mls/hr IV Q24H [facility] Ceftriaxone Sodium 1 gm/ (Sodium Chloride) 50 mls @ 100 mls/hr IV Q24H [facility] Last Infusion: 01/04/23 10:26 Dose: Infused Documented By: BRET Latanoprost (Latanoprost 0.005 % Ophth Lolita 2.5 Ml Drops) 0 drop EYE-BOTH BEDTIME [facility] Magnesium Oxide (Magnesium Oxide 400 Mg Tablet) 400 mg PO DAILY [facility] Last Admin: 01/04/23 09:28 Dose: 400 mg Documented By: BRET Melatonin (Melatonin 3 Mg Tablet) 6 mg PO BEDTIME PRN PRN Reason: Insomnia Methylprednisolone Sodium Succinate (Methylprednisolone Sod Succ 40 Mg/Ml Vial) 40 mg IVPUSH Q12H [facility] Last Admin: 01/04/23 09:28 Dose: 40 mg Documented By: ASHISHEMA Metoprolol Succinate (Metoprolol Succinate Er 50 Mg Tab.Er.24h) 50 mg PO DAILY [facility]; Protocol Last Admin: 01/04/23 09:28 Dose: 50 mg Documented By: ASHISHEMA Mirtazapine (Mirtazapine 15 Mg Tablet) 7.5 mg PO BEDTIME [facility] Multivitamins/Vitamin C (Multivitamin Tablet) 1 tab PO DAILY [facility] Last Admin: 01/04/23 09:28 Dose: 1 tab Documented By: ASHISHEMA Ondansetron HCl (Ondansetron Hcl 4 Mg/2 Ml Vial) 4 mg IVPUSH Q8H PRN PRN Reason: Nausea and Vomiting Potassium Chloride (Potassium Chloride Er 10 Meq Tablet.Er) 10 meq PO DAILY [facility] Last Admin: 01/04/23 09:28 Dose: 10 meq Documented By: BRET Sodium Chloride (0.9 % Sodium Chloride Flush 3 Ml Syringe) 3 ml IVFLUSH QSHIFT [facility] Last Admin: 01/04/23 08:31 Dose: Not Given Documented By: TRACIE Non-Admin Reason: Med Not Available Labs 01/04/23 04:56 01/04/23 04:57 Labs: Laboratory Results - last 24 hr 01/03/23 01/03/23 01/03/23 21:44 21:45 23:58 MCV 95.4 MCH 31.8 MCHC 33.3 RDW 13.2 Plt Count 161 MPV 9.9 Immature Gran % (Auto) 0.6 H Neut % (Auto) 78.2 H Lymph % (Auto) 8.5 L [place] % (Auto) 12.4 H Eos % (Auto) 0.1 Baso % (Auto) 0.2 Lymph # (Auto) 1.4 [place] # (Auto) 2.0 H Eos # (Auto) 0.0 Baso # (Auto) 0.0 Abs Immat Gran (auto) 0.10 H Absolute Neuts (auto) 12.8 H Absolute Nucleated RBC 0.000 Nucleated RBC % (auto) 0.0 Smear Tech's Comments VERIFIED Anion Gap 16 Estim Creat Clear Calc 50.1 Estimated GFR 59 Random Glucose 124 H Lactic Acid 2.9 H* Lactic Acid F/U @ 2Hr Calcium 9.5 Urine Color Yellow Urine Appearance Cloudy Urine pH >= 9.0 Ur Specific [place] 1.020 Urine Protein 100 (2+) H Urine Glucose (UA) Negative Urine Ketones Negative Urine Blood Small (1+) H Urine Nitrite Positive H Ur Leukocyte Esterase Large (3+) H Urine RBC 6-10 H Urine WBC 21-50 Ur Squamous Epith Cells 0-2 Other Crystals Present Urine Bacteria 3+ Hyaline Casts 3-5 COVID-19 (LIDA) Negative COVID-19 Clin Com See Note Influenza Type A (CHINO) Negative Influenza Type B (CHINO) Negative Influenza A & B Note See Note 1001/04/23 01/04/23 00:42 04:56 04:57 MCV 95.5 MCH 31.7 MCHC 33.2 RDW 13.2 Plt Count 166 MPV 10.3 Immature Gran % (Auto) 0.9 H Neut % (Auto) 92.8 H Lymph % (Auto) 4.1 L [place] % (Auto) 2.1 Eos % (Auto) 0.0 Baso % (Auto) 0.1 Lymph # (Auto) 0.6 L [place] # (Auto) 0.3 Eos # (Auto) 0.0 Baso # (Auto) 0.0 Abs Immat Gran (auto) 0.14 H Absolute Neuts (auto) 13.9 H Absolute Nucleated RBC 0.000 Nucleated RBC % (auto) 0.0 Smear Tech's Comments Anion Gap 17 Estim Creat Clear Calc 49.7 Estimated GFR 59 Random Glucose 215 H Lactic Acid Lactic Acid F/U @ 2Hr 1.4 Calcium 9.3 Urine Color Urine Appearance Urine pH Ur Specific [place] Urine Protein Urine Glucose (UA) Urine Ketones Urine Blood Urine Nitrite Ur Leukocyte Esterase Urine RBC Urine WBC Ur Squamous Epith Cells Other Crystals Urine Bacteria Hyaline Casts COVID-19 (LIDA) COVID-19 Clin Com Influenza Type A (CHINO) Influenza Type B (CHINO) Influenza A & B Note Assessment and Plan (1) COPD exacerbation: Status: Acute (2) UTI (urinary tract infection): Status: Acute Plan This is a 87-year-old male with pertinent history of COPD not on home oxygen, essential hypertension, mixed hyperlipidemia, CKD stage 3, mood disorder who was sent to the emergency department for evaluation of dyspnea and hypoxemia. #. Acute hypoxemic respiratory failure due to acute exacerbation of COPD. Clinically improving -continue bronchodilatorsby Neb, IV steroid, O2 kepp sat 88-92% #. UTI--Add Ceftriaxone 01/04/23 #. Acute lactic acidosis due to hypoxemia. Not d/t sepsis #. Essential hypertension. Continue home antihypertensives #. Mixed hyperlipidemia. On statin and ezetimibe #. Mood disorder. Continue home mood stabilizers DNR/DNI Cardiac diet Nee for inpatient: managment of copd with hypoxia, acute need of O2, UTI need IV Abx Time Spent With Patient Time: Total time managing care of this patient today ____ minutes. Quality Stroke Does the patient have a stroke diagnosis?: No VTE Prior VTE?: No VTE Risk Level:: Medical - moderate - high VTE Device Contraindication: Treatment Not Indicated VTE Drug Contraindication: N/A - Med Ordered
--- NOTE | 2023-01-04 13:44 | MHC.CM.PN ---
IMM 01/04/23 provided to the patient and his . Patient lives @ [facility]. He uses a WC and occasionally a walker with assist. He requires assistance with ADLs. DP return to [facility] via BLS.
[2023-01-05] VITALS (8 sets, daily range): BP systolic 127–143; BP diastolic 59–65; PULSE 67–99; RESP 16–18; TEMP 36–36.4; O2SAT 90–94
--- NOTE | 2023-01-05 09:25 | HO.PM.IMPN ---
Subjective Subjective Date of Service: 01/05/23 Interval History: f/u on acute rep failure, hypoxia, uti interval history, still on O2 but better Physical Exam Vital Signs: Vital Signs: Last Vital Signs Temp 97.5 F 01/05/23 08:00 Pulse 76 01/05/23 08:00 Resp 16 01/05/23 08:00 BP 143/65 H 01/05/23 08:00 Pulse Ox 94 01/05/23 08:00 O2 Del Method Nasal Cannula 01/05/23 08:00 O2 Flow Rate 3 01/05/23 08:00 Oxygen Flow Rate 4 01/03/23 21:03 BMI result Body Mass Index 32.5 Const: Other: General: AO X 3, no acute distress Resp: sandhya rhonchi CVS: S1,S2,RRR GI: +BS, NT, no distention Skin: No rash Neuro: motor grossly intact Psych: appropriate affect Objective Data Active Medications Acetaminophen (Acetaminophen 325 Mg Tablet) 650 mg PO Q6H PRN PRN Reason: Pain, Mild (Pain Scale 1-3) Albuterol/Ipratropium (Albuterol/Iprat 2.5/0.5mg 3 Ml Ampul.Neb) 3 ml INHALE RQ4H WHILE AWAKE [facility] Last Admin: 01/05/23 07:54 Dose: Not Given Documented By: RAJAN Non-Admin Reason: Patient Asleep Albuterol/Ipratropium (Albuterol/Iprat 2.5/0.5mg 3 Ml Ampul.Neb) 3 ml INHALE Q4H PRN PRN Reason: Wheezing Amlodipine Besylate (Amlodipine Besylate 10 Mg Tablet) 10 mg PO DAILY [facility]; Protocol Last Admin: 01/04/23 09:28 Dose: 10 mg Documented By: BRET Atorvastatin Calcium (Atorvastatin Calcium 80 Mg Tablet) 80 mg PO BEDTIME [facility] Last Admin: 01/04/23 21:56 Dose: 80 mg Documented By: JOHNNY Cyanocobalamin (Cyanocobalamin (Vitamin B-12) 1,000 Mcg Tablet) 2,000 mcg PO DAILY [facility] Last Admin: 01/04/23 09:28 Dose: 2,000 mcg Documented By: BRET Ezetimibe (Ezetimibe 10 Mg Tablet) 10 mg PO DAILY [facility] Last Admin: 01/04/23 09:29 Dose: 10 mg Documented By: BRET Enoxaparin Sodium (Enoxaparin Sodium 40 Mg/0.4 Ml Syringe) 40 mg SUBCUT Q24H [facility] Last Admin: 01/04/23 23:50 Dose: 40 mg Documented By: JOHNNY Escitalopram Oxalate (Escitalopram Oxalate 5 Mg Tablet) 5 mg PO DAILY [facility] Last Admin: 01/04/23 09:28 Dose: 5 mg Documented By: BRET Folic Acid (Folic Acid 1 Mg Tablet) 1 mg PO DAILY [facility] Last Admin: 01/04/23 09:28 Dose: 1 mg Documented By: BRET Guaifenesin (Guaifenesin 100 Mg/5 Ml Liquid) 10 ml PO Q4H PRN PRN Reason: Cough Last Admin: 01/04/23 21:25 Dose: 10 ml Documented By: CHANDU Hydrochlorothiazide (Hydrochlorothiazide 25 Mg Tablet) 25 mg PO DAILY [facility]; Protocol Last Admin: 01/04/23 09:29 Dose: 25 mg Documented By: BRET Azithromycin 500 mg/ Sodium (Chloride) 250 mls @ 125 mls/hr IV Q24H [facility] Last Infusion: 01/05/23 02:06 Dose: Infused Documented By: JOHNNY Ceftriaxone Sodium 1 gm/ (Sodium Chloride) 50 mls @ 100 mls/hr IV Q24H [facility] Last Infusion: 01/04/23 10:26 Dose: Infused Documented By: BRET Latanoprost (Latanoprost 0.005 % Ophth Lolita 2.5 Ml Drops) 0 drop EYE-BOTH BEDTIME [facility] Last Admin: 01/04/23 23:13 Dose: 1 drop Documented By: JOHNNY Magnesium Oxide (Magnesium Oxide 400 Mg Tablet) 400 mg PO DAILY [facility] Last Admin: 01/04/23 09:28 Dose: 400 mg Documented By: BRET Melatonin (Melatonin 3 Mg Tablet) 6 mg PO BEDTIME PRN PRN Reason: Insomnia Last Admin: 01/04/23 21:25 Dose: 6 mg Documented By: CHANDU Methylprednisolone Sodium Succinate (Methylprednisolone Sod Succ 40 Mg/Ml Vial) 40 mg IVPUSH Q12H [facility] Last Admin: 01/04/23 23:50 Dose: 40 mg Documented By: JOHNNY Metoprolol Succinate (Metoprolol Succinate Er 50 Mg Tab.Er.24h) 50 mg PO DAILY [facility]; Protocol Last Admin: 01/04/23 09:28 Dose: 50 mg Documented By: BRET Mirtazapine (Mirtazapine 15 Mg Tablet) 7.5 mg PO BEDTIME [facility] Last Admin: 01/04/23 21:25 Dose: 7.5 mg Documented By: CHANDU Morphine Sulfate (Morphine Sulfate 2 Mg/Ml Cartridge) 2 mg IVPUSH Q4H PRN; Protocol PRN Reason: Pain, Severe (Pain Scale 7-10) Last Admin: 01/04/23 21:26 Dose: 2 mg Documented By: CHANDU Multivitamins/Vitamin C (Multivitamin Tablet) 1 tab PO DAILY [facility] Last Admin: 01/04/23 09:28 Dose: 1 tab Documented By: BRET Ondansetron HCl (Ondansetron Hcl 4 Mg/2 Ml Vial) 4 mg IVPUSH Q8H PRN PRN Reason: Nausea and Vomiting Potassium Chloride (Potassium Chloride Er 10 Meq Tablet.Er) 10 meq PO DAILY [facility] Last Admin: 01/04/23 09:28 Dose: 10 meq Documented By: BRET Sodium Chloride (0.9 % Sodium Chloride Flush 3 Ml Syringe) 3 ml IVFLUSH QSHIFT [facility] Last Admin: 01/04/23 19:49 Dose: 3 ml Documented By: BECKFOT Labs 01/04/23 04:56 01/04/23 04:57 Microbiology Microbiology Results: Microbiology 01/03/23 21:44 Blood Culture - Preliminary Blood - Venous No growth after 24 hours. 01/03/23 21:48 Blood Culture - Preliminary Blood - Venous No growth after 24 hours. Assessment and Plan (1) COPD exacerbation: Status: Acute (2) UTI (urinary tract infection): Status: Acute Plan This is a 87-year-old male with pertinent history of COPD not on home oxygen, essential hypertension, mixed hyperlipidemia, CKD stage 3, mood disorder who was sent to the emergency department for evaluation of dyspnea and hypoxemia. Acute hypoxemic respiratory failure due to acute exacerbation of COPD. Clinically improving. -Bronchodilators: Continue by nebulizer. -continue Steroids, Switch from intravenous to oral administration tomorrow. -Oxygen:Keep oxygen saturation levels at 88-92%. UTI: Ceftriaxone started on 01/04/2023. Lactic acidosis: Due to hypoxemia, not sepsis. Essential hypertension: Continue home antihypertensives. Mixed hyperlipidemia: On statin and ezetimibe. Mood disorder: Continue home mood stabilizers. DNR/DNI Cardiac diet Nee for inpatient: management of copd with hypoxia, acute need of O2, UTI need IV Abx Plan discussed with over the phone Time Spent With Patient Time: Total time managing care of this patient today ____ minutes. Quality Stroke Does the patient have a stroke diagnosis?: No VTE Prior VTE?: No VTE Risk Level:: Medical - moderate - high VTE Device Contraindication: Treatment Not Indicated VTE Drug Contraindication: N/A - Med Ordered
[2023-01-05] MEDS: guaiFENesin 100 MG/5 ML LIQUID 10 ML PO ×2 (09:47→17:55)
--- NOTE | 2023-01-05 14:21 | MHC.CM.PN ---
Per MD rounds patient may be ready to discharge tomorrow. DP return to the [facility] home via BLS. Patient continues to require supplemental oxygen.
[2023-01-05] MEDS: Albuterol/Iprat 2.5/0.5MG 3 ML AMPUL.NEB INHALE (20:34)
[2023-01-05] MEDS: Atorvastatin Calcium 80 MG TABLET PO (20:51)
[2023-01-05] MEDS: Mirtazapine 15 MG TABLET 7.5 MG PO (20:52)
[2023-01-05] MEDS: methylPREDNISolone Sod Succ 40 MG/ML VIAL IVPUSH (23:13)
[2023-01-05] MEDS: Enoxaparin Sodium 40 MG/0.4 ML SYRINGE SUBCUT (23:13)
[2023-01-06] VITALS (9 sets, daily range): BP systolic 120–135; BP diastolic 59–65; PULSE 73–86; RESP 16–20; TEMP 36.1–36.8; O2SAT 90–95
[2023-01-06] MEDS: Albuterol/Iprat 2.5/0.5MG 3 ML AMPUL.NEB INHALE ×4 (07:45→20:23)
[2023-01-06] MEDS: Cyanocobalamin (Vitamin B-12) 1,000 MCG TABLET 2000 MCG PO (08:21)
[2023-01-06] MEDS: Ezetimibe 10 MG TABLET PO (08:21)
[2023-01-06] MEDS: Escitalopram Oxalate 5 MG TABLET PO (08:21)
[2023-01-06] MEDS: Potassium Chloride ER 10 MEQ TABLET.ER PO (08:21)
[2023-01-06] MEDS: Folic Acid 1 MG TABLET PO (08:21)
[2023-01-06] MEDS: hydroCHLOROthiazide 25 MG TABLET PO (08:21)
[2023-01-06] MEDS: Metoprolol Succinate ER 50 MG TAB.ER.24H PO (08:21)
[2023-01-06] MEDS: Multivitamin TABLET 1 TAB PO (08:21)
[2023-01-06] MEDS: Magnesium Oxide 400 MG TABLET PO (08:21)
[2023-01-06] MEDS: amLODIPine Besylate 10 MG TABLET PO (08:21)
[2023-01-06 09:30] LABS: Hemoglobin 10.8 g/dl (14.0-18.0); Mean Corpuscular HGB Conc 32.7 g/dl (31.0-36.0); Mean Corpuscular Hemoglobin 31.6 pg (27.0-33.0); Mean Corpuscular Volume 96.5 fL (80.0-98.0); Mean Platelet Volume 10.5 fL (9.4-12.4); Platelet Count 203 X10*3/uL (160-400); Red Blood Count 3.42 X10*6/uL (4.60-5.80); Red Cell Distribution Width 13.2 % (11.0-16.0); White Blood Count 11.4 X10*3/uL (4.8-10.8)
[2023-01-06 09:47] LABS: Anion Gap 17 (12-20); Blood Urea Nitrogen 38 mg/dL (9-16); Calcium 9.6 mg/dL (8.4-10.2); Carbon Dioxide 25 mmol/L (22-29); Chloride 101 mmol/L (96-108); Creatinine Clr Calc Pharmacy 37.8; Estimated Glomerular Filt Rate 43; Glucose Random 215 mg/dL (60-115); Potassium 4.5 mmol/L (3.3-5.1); Sodium 138 mmol/L (135-145)
--- NOTE | 2023-01-06 10:23 | P.PNIM_ITS ---
Subjective Subjective Date of Service: 01/06/23 Interval History: f/u on acute rep failure, hypoxia, uti interval history, still not feeling well, wheezing rhonchi, renal function getting worse Physical Exam 2 Vital Signs: Vital Signs: Last Vital Signs Temp 98.2 F 01/06/23 07:23 Pulse 86 01/06/23 07:45 Resp 20 01/06/23 07:45 BP 130/65 01/06/23 07:23 Pulse Ox 92 01/06/23 07:23 O2 Del Method Nasal Cannula 01/06/23 07:23 O2 Flow Rate 2 01/06/23 07:23 Oxygen Flow Rate 4 01/03/23 21:03 BMI result Body Mass Index 32.5 Const: Other: General: AO X 3, no acute distress Resp: sandhya rhonchi CVS: S1,S2,RRR GI: +BS, NT, no distention Skin: No rash Neuro: motor grossly intact Psych: appropriate affect Objective Data Active Medications Acetaminophen (Acetaminophen 325 Mg Tablet) 650 mg PO Q6H PRN PRN Reason: Pain, Mild (Pain Scale 1-3) Albuterol/Ipratropium (Albuterol/Iprat 2.5/0.5mg 3 Ml Ampul.Neb) 3 ml INHALE RQ4H WHILE AWAKE [facility] Last Admin: 01/06/23 07:45 Dose: 3 ml Documented By: MIGUEL Albuterol/Ipratropium (Albuterol/Iprat 2.5/0.5mg 3 Ml Ampul.Neb) 3 ml INHALE Q4H PRN PRN Reason: Wheezing Amlodipine Besylate (Amlodipine Besylate 10 Mg Tablet) 10 mg PO DAILY [facility]; Protocol Last Admin: 01/06/23 08:21 Dose: 10 mg Documented By: ADRIANE Atorvastatin Calcium (Atorvastatin Calcium 80 Mg Tablet) 80 mg PO BEDTIME [facility] Last Admin: 01/05/23 20:51 Dose: 80 mg Documented By: ALBERTO Cyanocobalamin (Cyanocobalamin (Vitamin B-12) 1,000 Mcg Tablet) 2,000 mcg PO DAILY [facility] Last Admin: 01/06/23 08:21 Dose: 2,000 mcg Documented By: ADRIANE Ezetimibe (Ezetimibe 10 Mg Tablet) 10 mg PO DAILY [facility] Last Admin: 01/06/23 08:21 Dose: 10 mg Documented By: ADRIANE Enoxaparin Sodium (Enoxaparin Sodium 40 Mg/0.4 Ml Syringe) 40 mg SUBCUT Q24H [facility] Last Admin: 01/05/23 23:13 Dose: 40 mg Documented By: ALBERTO Escitalopram Oxalate (Escitalopram Oxalate 5 Mg Tablet) 5 mg PO DAILY [facility] Last Admin: 01/06/23 08:21 Dose: 5 mg Documented By: ADRIANE Folic Acid (Folic Acid 1 Mg Tablet) 1 mg PO DAILY [facility] Last Admin: 01/06/23 08:21 Dose: 1 mg Documented By: ADRIANE Guaifenesin (Guaifenesin 100 Mg/5 Ml Liquid) 10 ml PO Q4H PRN PRN Reason: Cough Last Admin: 01/05/23 17:55 Dose: 10 ml Documented By: COTEMA Hydrochlorothiazide (Hydrochlorothiazide 25 Mg Tablet) 25 mg PO DAILY [facility]; Protocol Last Admin: 01/06/23 08:21 Dose: 25 mg Documented By: ADRIANE Azithromycin 500 mg/ Sodium (Chloride) 250 mls @ 125 mls/hr IV Q24H [facility] Last Infusion: 01/06/23 01:14 Dose: Infused Documented By: ALBERTO Ceftriaxone Sodium 1 gm/ (Sodium Chloride) 50 mls @ 100 mls/hr IV Q24H [facility] Last Infusion: 01/06/23 09:28 Dose: Infused Documented By: ADRIANE Latanoprost (Latanoprost 0.005 % Ophth [place] 2.5 Ml Drops) 0 drop EYE-BOTH BEDTIME [facility] Last Admin: 01/05/23 20:52 Dose: 1 drop Documented By: ALBERTO Magnesium Oxide (Magnesium Oxide 400 Mg Tablet) 400 mg PO DAILY [facility] Last Admin: 01/06/23 08:21 Dose: 400 mg Documented By: ADRIANE Melatonin (Melatonin 3 Mg Tablet) 6 mg PO BEDTIME PRN PRN Reason: Insomnia Last Admin: 01/04/23 21:25 Dose: 6 mg Documented By: CHANDU Methylprednisolone Sodium Succinate (Methylprednisolone Sod Succ 40 Mg/Ml Vial) 40 mg IVPUSH Q12H [facility] Last Admin: 01/05/23 23:13 Dose: 40 mg Documented By: ALBERTO Metoprolol Succinate (Metoprolol Succinate Er 50 Mg Tab.Er.24h) 50 mg PO DAILY [facility]; Protocol Last Admin: 01/06/23 08:21 Dose: 50 mg Documented By: ADRIANE Mirtazapine (Mirtazapine 15 Mg Tablet) 7.5 mg PO BEDTIME [facility] Last Admin: 01/05/23 20:52 Dose: 7.5 mg Documented By: ALBERTO Multivitamins/Vitamin C (Multivitamin Tablet) 1 tab PO DAILY [facility] Last Admin: 01/06/23 08:21 Dose: 1 tab Documented By: ADRIANE Ondansetron HCl (Ondansetron Hcl 4 Mg/2 Ml Vial) 4 mg IVPUSH Q8H PRN PRN Reason: Nausea and Vomiting Potassium Chloride (Potassium Chloride Er 10 Meq Tablet.Er) 10 meq PO DAILY [facility] Last Admin: 01/06/23 08:21 Dose: 10 meq Documented By: ADRIANE Sodium Chloride (0.9 % Sodium Chloride Flush 3 Ml Syringe) 3 ml IVFLUSH QSHIFT [facility] Last Admin: 01/06/23 08:22 Dose: 3 ml Documented By: ADRIANE Labs 01/06/23 08:28 01/06/23 08:28 Labs: Laboratory Results - last 24 hr 01/06/23 08:28 MCV 96.5 MCH 31.6 MCHC 32.7 RDW 13.2 Plt Count 203 MPV 10.5 Absolute Nucleated RBC 0.000 Nucleated RBC % (auto) 0.0 Anion Gap 17 Estim Creat Clear Calc 37.8 Estimated GFR 43 Random Glucose 215 H Calcium 9.6 Microbiology Microbiology Results: Microbiology 01/03/23 21:44 Blood Culture - Preliminary Blood - Venous No growth after 48 hours. 01/03/23 21:48 Blood Culture - Preliminary Blood - Venous No growth after 48 hours. 01/04/23 Unknown Urine Culture - Preliminary Urine clean catch - Urine bush top Culture in progress. Assessment and Plan (1) COPD exacerbation: Status: Acute (2) UTI (urinary tract infection): Status: Acute Plan This is a 87-year-old male with pertinent history of COPD not on home oxygen, essential hypertension, mixed hyperlipidemia, CKD stage 3, mood disorder who was sent to the emergency department for evaluation of dyspnea and hypoxemia. Acute hypoxemic respiratory failure due to acute exacerbation of COPD. Clinically improving. -Bronchodilators: Continue by nebulizer. -continue Steroids, Switch from intravenous to oral administration when better -Oxygen:Keep oxygen saturation levels at 88-92%. UTI: Ceftriaxone started on 01/04/2023, cultre pending Lactic acidosis: Due to hypoxemia, not sepsis. OLEG: cause unknown, nephrology consult Essential hypertension: Continue home antihypertensives. Mixed hyperlipidemia: On statin and ezetimibe. Mood disorder: Continue home mood stabilizers. DNR/DNI Cardiac diet Nee for inpatient: management of copd with hypoxia, acute need of O2, UTI need IV Abx Plan discussed with over the phone Time Spent With Patient Time: Total time managing care of this patient today ____ minutes. Quality Stroke Does the patient have a stroke diagnosis?: No VTE Prior VTE?: No VTE Risk Level:: Medical - moderate - high VTE Device Contraindication: Treatment Not Indicated VTE Drug Contraindication: N/A - Med Ordered
--- NOTE | 2023-01-06 10:47 | MHC.CM.PN ---
Per MD rounds no dc today. Patient is still SOB. A clinical update has been faxed to the [facility].
[2023-01-06] MEDS: methylPREDNISolone Sod Succ 40 MG/ML VIAL IVPUSH ×2 (10:57→21:26)
[2023-01-06] MEDS: guaiFENesin 100 MG/5 ML LIQUID 10 ML PO ×2 (12:37→21:37)
[2023-01-06] MEDS: Atorvastatin Calcium 80 MG TABLET PO (21:25)
[2023-01-06] MEDS: Mirtazapine 15 MG TABLET 7.5 MG PO (21:25)
[2023-01-06] MEDS: Enoxaparin Sodium 40 MG/0.4 ML SYRINGE SUBCUT (21:27)
[2023-01-07] VITALS (8 sets, daily range): BP systolic 131–154; BP diastolic 68–79; PULSE 72–86; RESP 16–20; TEMP 36.2–36.4; O2SAT 84–97
[2023-01-07] MEDS: hydroCHLOROthiazide 25 MG TABLET PO (07:51)
[2023-01-07] MEDS: Folic Acid 1 MG TABLET PO (07:51)
[2023-01-07] MEDS: Cyanocobalamin (Vitamin B-12) 1,000 MCG TABLET 2000 MCG PO (07:51)
[2023-01-07] MEDS: Potassium Chloride ER 10 MEQ TABLET.ER PO (07:51)
[2023-01-07] MEDS: Metoprolol Succinate ER 50 MG TAB.ER.24H PO (07:51)
[2023-01-07] MEDS: Magnesium Oxide 400 MG TABLET PO (07:51)
[2023-01-07] MEDS: Multivitamin TABLET 1 TAB PO (07:52)
[2023-01-07] MEDS: amLODIPine Besylate 10 MG TABLET PO (07:52)
[2023-01-07] MEDS: Ezetimibe 10 MG TABLET PO (07:52)
[2023-01-07] MEDS: Escitalopram Oxalate 5 MG TABLET PO (07:52)
[2023-01-07] MEDS: Albuterol/Iprat 2.5/0.5MG 3 ML AMPUL.NEB INHALE ×4 (08:24→18:51)
--- NOTE | 2023-01-07 09:49 | P.PNIM_ITS ---
Subjective Subjective Date of Service: 01/07/23 Interval History: f/u on acute rep failure, hypoxia, uti interval history: seems a bit confused, sound rhonchorus, still on oxygen Physical Exam 2 Vital Signs: Vital Signs: Last Vital Signs Temp 97.1 F 01/07/23 07:33 Pulse 84 01/07/23 08:26 Resp 18 01/07/23 08:26 BP 140/70 H 01/07/23 07:33 Pulse Ox 93 01/07/23 07:33 O2 Del Method Nasal Cannula 01/07/23 07:33 O2 Flow Rate 2 01/07/23 07:33 Oxygen Flow Rate 4 01/03/23 21:03 BMI result Body Mass Index 32.5 Const: Other: General: AO X 2, no acute distress Resp: sandhya rhonchi CVS: S1,S2,RRR GI: +BS, NT, no distention Skin: No rash Neuro: motor grossly intact Psych: appropriate affect Objective Data Active Medications Acetaminophen (Acetaminophen 325 Mg Tablet) 650 mg PO Q6H PRN PRN Reason: Pain, Mild (Pain Scale 1-3) Albuterol/Ipratropium (Albuterol/Iprat 2.5/0.5mg 3 Ml Ampul.Neb) 3 ml INHALE RQ4H WHILE AWAKE [facility] Last Admin: 01/07/23 08:24 Dose: 3 ml Documented By: ALLI Albuterol/Ipratropium (Albuterol/Iprat 2.5/0.5mg 3 Ml Ampul.Neb) 3 ml INHALE Q4H PRN PRN Reason: Wheezing Amlodipine Besylate (Amlodipine Besylate 10 Mg Tablet) 10 mg PO DAILY [facility]; Protocol Last Admin: 01/07/23 07:52 Dose: 10 mg Documented By: ADRIANE Atorvastatin Calcium (Atorvastatin Calcium 80 Mg Tablet) 80 mg PO BEDTIME [facility] Last Admin: 01/06/23 21:25 Dose: 80 mg Documented By: ALBERTO Cyanocobalamin (Cyanocobalamin (Vitamin B-12) 1,000 Mcg Tablet) 2,000 mcg PO DAILY [facility] Last Admin: 01/07/23 07:51 Dose: 2,000 mcg Documented By: ADRIANE Ezetimibe (Ezetimibe 10 Mg Tablet) 10 mg PO DAILY [facility] Last Admin: 01/07/23 07:52 Dose: 10 mg Documented By: ADRIANE Enoxaparin Sodium (Enoxaparin Sodium 40 Mg/0.4 Ml Syringe) 40 mg SUBCUT Q24H [facility] Last Admin: 01/06/23 21:27 Dose: 40 mg Documented By: ALBERTO Escitalopram Oxalate (Escitalopram Oxalate 5 Mg Tablet) 5 mg PO DAILY [facility] Last Admin: 01/07/23 07:52 Dose: 5 mg Documented By: ADRIANE Folic Acid (Folic Acid 1 Mg Tablet) 1 mg PO DAILY [facility] Last Admin: 01/07/23 07:51 Dose: 1 mg Documented By: ADRIANE Guaifenesin (Guaifenesin 100 Mg/5 Ml Liquid) 10 ml PO Q4H PRN PRN Reason: Cough Last Admin: 01/06/23 21:37 Dose: 10 ml Documented By: ALBERTO Hydrochlorothiazide (Hydrochlorothiazide 25 Mg Tablet) 25 mg PO DAILY [facility]; Protocol Last Admin: 01/07/23 07:51 Dose: 25 mg Documented By: ADRIANE Azithromycin 500 mg/ Sodium (Chloride) 250 mls @ 125 mls/hr IV Q24H [facility] Last Infusion: 01/06/23 23:34 Dose: Infused Documented By: ALBERTO Ceftriaxone Sodium 1 gm/ (Sodium Chloride) 50 mls @ 100 mls/hr IV Q24H [facility] Last Infusion: 01/07/23 08:37 Dose: Infused Documented By: ADRIANE Latanoprost (Latanoprost 0.005 % Ophth Lolita 2.5 Ml Drops) 0 drop EYE-BOTH BEDTIME [facility] Last Admin: 01/06/23 21:37 Dose: 1 drop Documented By: ALBERTO Lorazepam (Lorazepam 0.5 Mg Tablet) 0.25 mg PO Q6H PRN PRN Reason: anxiety/restlessness Magnesium Oxide (Magnesium Oxide 400 Mg Tablet) 400 mg PO DAILY [facility] Last Admin: 01/07/23 07:51 Dose: 400 mg Documented By: ADRIANE Melatonin (Melatonin 3 Mg Tablet) 6 mg PO BEDTIME PRN PRN Reason: Insomnia Last Admin: 01/04/23 21:25 Dose: 6 mg Documented By: CHANDU Methylprednisolone Sodium Succinate (Methylprednisolone Sod Succ 40 Mg/Ml Vial) 40 mg IVPUSH Q12H [facility] Last Admin: 01/06/23 21:26 Dose: 40 mg Documented By: ALBERTO Metoprolol Succinate (Metoprolol Succinate Er 50 Mg Tab.Er.24h) 50 mg PO DAILY [facility]; Protocol Last Admin: 01/07/23 07:51 Dose: 50 mg Documented By: ADRIANE Mirtazapine (Mirtazapine 15 Mg Tablet) 7.5 mg PO BEDTIME [facility] Last Admin: 01/06/23 21:25 Dose: 7.5 mg Documented By: ALBERTO Multivitamins/Vitamin C (Multivitamin Tablet) 1 tab PO DAILY [facility] Last Admin: 01/07/23 07:52 Dose: 1 tab Documented By: ADRIANE Ondansetron HCl (Ondansetron Hcl 4 Mg/2 Ml Vial) 4 mg IVPUSH Q8H PRN PRN Reason: Nausea and Vomiting Potassium Chloride (Potassium Chloride Er 10 Meq Tablet.Er) 10 meq PO DAILY [facility] Last Admin: 01/07/23 07:51 Dose: 10 meq Documented By: ADRIANE Sodium Chloride (0.9 % Sodium Chloride Flush 3 Ml Syringe) 3 ml IVFLUSH QSHIFT [facility] Last Admin: 01/07/23 07:52 Dose: 3 ml Documented By: ADRIANE Labs 01/06/23 08:28 01/06/23 08:28 Microbiology Microbiology Results: Microbiology 01/04/23 Unknown Urine Culture - Preliminary Urine clean catch - Urine bush top Culture in progress. Assessment and Plan (1) COPD exacerbation: Status: Acute (2) UTI (urinary tract infection): Status: Acute Plan This is a 87-year-old male with pertinent history of COPD not on home oxygen, essential hypertension, mixed hyperlipidemia, CKD stage 3, mood disorder who was sent to the emergency department for evaluation of dyspnea and hypoxemia. Acute hypoxemic respiratory failure due to acute exacerbation of COPD. Clinically improving but not optimal -Bronchodilators: Continue by nebulizer. -continue Steroids, Switch from intravenous to oral administration today -Oxygen:Keep oxygen saturation levels at 88-92%. UTI: Ceftriaxone started on 01/04/2023, cultre in progress Lactic acidosis: Due to hypoxemia, not sepsis. OLEG: cause unknown, nephrology consult, repeat lab pending today Essential hypertension: Continue home antihypertensives. Mixed hyperlipidemia: On statin and ezetimibe. Mood disorder: Continue home mood stabilizers. DNR/DNI Cardiac diet Nee for inpatient: management of copd with hypoxia, acute need of O2, UTI need IV Abx Plan discussed with over the phone Time Spent With Patient Time: Total time managing care of this patient today ____ minutes. Quality Stroke Does the patient have a stroke diagnosis?: No VTE Prior VTE?: No VTE Risk Level:: Medical - moderate - high VTE Device Contraindication: Treatment Not Indicated VTE Drug Contraindication: N/A - Med Ordered
[2023-01-07 10:40] LABS: Anion Gap 15 (12-20); Blood Urea Nitrogen 41 mg/dL (9-16); Calcium 8.9 mg/dL (8.4-10.2); Carbon Dioxide 25 mmol/L (22-29); Chloride 102 mmol/L (96-108); Creatinine Clr Calc Pharmacy 38.8; Estimated Glomerular Filt Rate 45; Glucose Random 274 mg/dL (60-115); Potassium 4.4 mmol/L (3.3-5.1); Sodium 138 mmol/L (135-145)
--- NOTE | 2023-01-07 10:44 | MHC.CM.PN ---
Per MD rounds patient is not ready to discharge today. He may be able to dc over the weekend. He will travel via BLS.
--- NOTE | 2023-01-07 10:58 | CONS_ITS ---
DATE OF SERVICE: 01/06/2023 REASON FOR CONSULTATION: I was asked to see the patient to assist in evaluation and management of the patient's acute kidney injury as reflected by serum creatinine increasing from 1.18 on admission to now 1.53 today. HISTORY OF PRESENT ILLNESS: In summary, the patient is an 87-year-old gentleman with a history of COPD, hypertension, stage 3 chronic kidney disease, mood disorder, came to the hospital with increasing shortness of breath. He is a resident at the [facility]. He was noted to be hypoxic with O2 saturation of 80% when he presented to the emergency room. The patient is a poor historian. Information was obtained from electronic medical record. His hospital course has included getting aggressive treatment for COPD exacerbation along with placed on antibiotics and getting diuretics. He has not had worsening renal function, hence the current consultation. PAST MEDICAL HISTORY: Listed including BPH, depression. 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 MEDICATIONS: His medications on admission are noted in the admitting notes and include hydrochlorothiazide 25 mg once a day along with his blood pressure pills and prednisone. ALLERGIES: HE HAS ALLERGIES TO LISINOPRIL LISTED. FAMILY HISTORY: Noncontributory. REVIEW OF SYSTEMS: Somewhat limited. He does complain of shortness of breath. PHYSICAL EXAMINATION: VITAL SIGNS: Blood pressure 130/60 with a heart rate in the 70s. He is afebrile. HEENT: Head is atraumatic and normocephalic. Mucous membranes are moist. LUNGS: rhonchi. Decreased breath sounds at the bases, particularly on the left side. ABDOMEN: Soft, nontender. EXTREMITIES: Trace edema. LABORATORY DATA: Hemoglobin 10.8, hematocrit 33, white count 11.4. Sodium 138, potassium 4.5, chloride 101, bicarb 25, BUN 38, creatinine 1.53. Yesterday's BUN and creatinine 25 and 1.1. Urine showed white cells and some protein in the UA. IMPRESSION: An 87-YEAR-OLD, ADMITTED WITH HYPOXIC RESPIRATORY FAILURE DUE TO A COMBINATION OF CHRONIC OBSTRUCTIVE PULMONARY DISEASE EXACERBATION, PNEUMONIA, AND QUESTION OF CONGESTIVE HEART FAILURE. 1. Acute kidney injury. This is most likely multifactorial including acute tubular necrosis in the setting of his respiratory decompensation. Given that, he has both pulmonary and kidney involvements, we will see about obtaining further serologies to rule out a pulmonary renal syndrome if his renal function worsens tomorrow. His urinalysis is abnormal and we will broaden the workup if his renal function does not improve over the next 24 hours. 2. Hypoxic respiratory failure. As mentioned, this appears to be a mixed bag of chronic obstructive pulmonary disease exacerbation along with pneumonia and perhaps congestive heart failure. 3. Hypertension. Blood pressure is under control on his current regimen. RECOMMENDATIONS: At this time include: Obtain spot urine studies. Monitor urine output and renal function. Additional serologies as ordered. Obtain renal ultrasound to rule out obstructive uropathy given his history of bladder cancer. We will follow the patient with the team. MD CHARLEE Preciado/ABHINAV / [phone]
[2023-01-07] MEDS: methylPREDNISolone Sod Succ 40 MG/ML VIAL IVPUSH ×2 (11:29→23:04)
[2023-01-07] MEDS: guaiFENesin 100 MG/5 ML LIQUID 10 ML PO ×2 (11:48→19:27)
--- NOTE | 2023-01-07 19:26 | P.PNNP_ITS ---
Subjective Subjective Date of Service: 01/07/23 Interval history: Seen and examined, events noted Remains HE w min exertion Physical Exam 2 Vital Signs: Vital Signs: Last Vital Signs Temp 97.6 F 01/07/23 15:19 Pulse 85 01/07/23 18:51 Resp 20 01/07/23 18:51 BP 138/69 01/07/23 15:19 Pulse Ox 91 L 01/07/23 15:19 O2 Del Method Nasal Cannula 01/07/23 15:19 O2 Flow Rate 2.0 01/07/23 15:19 Oxygen Flow Rate 4 01/03/23 21:03 BMI result Body Mass Index 32.5 Const: Other: General: AO X 2, no acute distress Resp: sandhya rhonchi CVS: S1,S2,RRR GI: +BS, NT, no distention Skin: No rash Neuro: motor grossly intact Psych: appropriate affect Objective Data Labs 01/06/23 08:28 01/07/23 09:30 Labs: Laboratory Results - last 24 hr 01/07/23 09:30 Hold Purple Top SEE NOTE Sodium 138 Potassium 4.4 Chloride 102 Carbon Dioxide 25 Anion Gap 15 BUN 41 H Creatinine 1.49 H Estim Creat Clear Calc 38.8 Estimated GFR 45 Random Glucose 274 H Calcium 8.9 D Microbiology Microbiology Results: Microbiology 01/04/23 Unknown Urine clean catch - Urine bush top Urine Culture - Preliminary Gram negative lzu Enterococcus/Streptococcus sp 01/03/23 21:44 Blood - Venous Blood Culture - Preliminary No growth after 48 hours. 01/03/23 21:48 Blood - Venous Blood Culture - Preliminary No growth after 48 hours. Procedures Date of Service Date of Service: 01/07/23 Assessment & Plan Assessment and plan (1) COPD exacerbation: Status: Acute (2) UTI (urinary tract infection): Status: Acute Plan OLEG: SCr stable 1.4-1.5 Resp failure: COPD > CHF HTN REC: cont usu manitenece diuretis; traclk UOP/renal func; avoid NToxins Time Spent With Patient Time: Total time managing care of this patient today ____ minutes. Progress Note: Quality Stroke Does the patient have a stroke diagnosis?: No
[2023-01-07 21:14] LABS: ABG Base Excess 1.8 mmol/L; ABG HCO3 26 mmol/L (22-26); ABG pCO2 43 mmHg (32-45); ABG pO2 58 mmHg (83-108)
[2023-01-07 21:28] LABS: ABG Refer to POC result
[2023-01-07] MEDS: Mirtazapine 15 MG TABLET 7.5 MG PO (23:02)
[2023-01-07] MEDS: Atorvastatin Calcium 80 MG TABLET PO (23:03)
[2023-01-07] MEDS: Enoxaparin Sodium 40 MG/0.4 ML SYRINGE SUBCUT (23:03)
[2023-01-08] VITALS (9 sets, daily range): BP systolic 127–146; BP diastolic 62–96; PULSE 76–86; RESP 18–20; TEMP 36.2–37.2; O2SAT 87–93
--- NOTE | 2023-01-08 00:14 | PC.NURSE ---
01/07/231899 02sat low 80's on 2L resp increased pt's o2 to 5L.Rechecked 02sat-82% on 5L .Oxymask 10L placed on pt sat-86%. notified ordered stat CXR and ABG's.Oxymask increased to 15L sat 88-91%.Pt resting comfortably at present time.
[2023-01-08] MEDS: Albuterol/Iprat 2.5/0.5MG 3 ML AMPUL.NEB INHALE ×5 (05:25→19:24)
[2023-01-08 09:03] LABS: Hematocrit 33.5 % (42.0-52.0); Hemoglobin 11.3 g/dl (14.0-18.0); Mean Corpuscular HGB Conc 33.7 g/dl (31.0-36.0); Mean Corpuscular Hemoglobin 31.8 pg (27.0-33.0); Mean Corpuscular Volume 94.4 fL (80.0-98.0); Mean Platelet Volume 10.1 fL (9.4-12.4); Platelet Count 201 X10*3/uL (160-400); Red Blood Count 3.55 X10*6/uL (4.60-5.80); Red Cell Distribution Width 12.7 % (11.0-16.0); White Blood Count 11.4 X10*3/uL (4.8-10.8)
--- NOTE | 2023-01-08 09:17 | HO.PM.IMPN ---
Subjective Subjective Date of Service: 01/09/23 Interval History: Patient's O2 requirement went up overnight, no acute distress, cxr showed opacity throught the lungs Physical Exam Vital Signs: Vital Signs: Last Vital Signs Temp 98.9 F 01/08/23 08:00 Pulse 76 01/08/23 08:02 Resp 20 01/08/23 08:02 BP 146/78 H 01/08/23 08:00 Pulse Ox 89 L 01/08/23 08:00 O2 Del Method Oxymask 01/08/23 08:00 O2 Flow Rate 6.0 01/08/23 08:00 Oxygen Flow Rate 4 01/03/23 21:03 BMI result Body Mass Index 32.5 Objective Data Active Medications Acetaminophen (Acetaminophen 325 Mg Tablet) 650 mg PO Q6H PRN PRN Reason: Pain, Mild (Pain Scale 1-3) Albuterol/Ipratropium (Albuterol/Iprat 2.5/0.5mg 3 Ml Ampul.Neb) 3 ml INHALE RQ4H WHILE AWAKE [facility] Last Admin: 01/08/23 08:01 Dose: 3 ml Documented By: TRISHA Albuterol/Ipratropium (Albuterol/Iprat 2.5/0.5mg 3 Ml Ampul.Neb) 3 ml INHALE Q4H PRN PRN Reason: Wheezing Last Admin: 01/08/23 05:25 Dose: 3 ml Documented By: KYM Amlodipine Besylate (Amlodipine Besylate 10 Mg Tablet) 10 mg PO DAILY [facility]; Protocol Last Admin: 01/07/23 07:52 Dose: 10 mg Documented By: ADRIANE Atorvastatin Calcium (Atorvastatin Calcium 80 Mg Tablet) 80 mg PO BEDTIME [facility] Last Admin: 01/07/23 23:03 Dose: 80 mg Documented By: NGUYỄN Cyanocobalamin (Cyanocobalamin (Vitamin B-12) 1,000 Mcg Tablet) 2,000 mcg PO DAILY [facility] Last Admin: 01/07/23 07:51 Dose: 2,000 mcg Documented By: ADRIANE Ezetimibe (Ezetimibe 10 Mg Tablet) 10 mg PO DAILY [facility] Last Admin: 01/07/23 07:52 Dose: 10 mg Documented By: ADRIANE Enoxaparin Sodium (Enoxaparin Sodium 40 Mg/0.4 Ml Syringe) 40 mg SUBCUT Q24H [facility] Last Admin: 01/07/23 23:03 Dose: 40 mg Documented By: NGUYỄN Escitalopram Oxalate (Escitalopram Oxalate 5 Mg Tablet) 5 mg PO DAILY [facility] Last Admin: 01/07/23 07:52 Dose: 5 mg Documented By: ADRIANE Folic Acid (Folic Acid 1 Mg Tablet) 1 mg PO DAILY [facility] Last Admin: 01/07/23 07:51 Dose: 1 mg Documented By: ADRIANE Guaifenesin (Guaifenesin 100 Mg/5 Ml Liquid) 10 ml PO Q4H PRN PRN Reason: Cough Last Admin: 01/07/23 19:27 Dose: 10 ml Documented By: NGUYỄN Azithromycin 500 mg/ Sodium (Chloride) 250 mls @ 125 mls/hr IV Q24H [facility] Last Infusion: 01/08/23 01:26 Dose: Infused Documented By: NGUYỄN Ceftriaxone Sodium 1 gm/ (Sodium Chloride) 50 mls @ 100 mls/hr IV Q24H [facility] Last Infusion: 01/07/23 08:37 Dose: Infused Documented By: ADRIANE Latanoprost (Latanoprost 0.005 % Ophth Lolita 2.5 Ml Drops) 0 drop EYE-BOTH BEDTIME [facility] Last Admin: 01/07/23 21:21 Dose: 1 drop Documented By: NGUYỄN Lorazepam (Lorazepam 0.5 Mg Tablet) 0.25 mg PO Q6H PRN PRN Reason: anxiety/restlessness Magnesium Oxide (Magnesium Oxide 400 Mg Tablet) 400 mg PO DAILY [facility] Last Admin: 01/07/23 07:51 Dose: 400 mg Documented By: ADRIANE Melatonin (Melatonin 3 Mg Tablet) 6 mg PO BEDTIME PRN PRN Reason: Insomnia Last Admin: 01/04/23 21:25 Dose: 6 mg Documented By: CHANDU Metoprolol Succinate (Metoprolol Succinate Er 50 Mg Tab.Er.24h) 50 mg PO DAILY [facility]; Protocol Last Admin: 01/07/23 07:51 Dose: 50 mg Documented By: ADRIANE Mirtazapine (Mirtazapine 15 Mg Tablet) 7.5 mg PO BEDTIME [facility] Last Admin: 01/07/23 23:02 Dose: 7.5 mg Documented By: NGUYỄN Multivitamins/Vitamin C (Multivitamin Tablet) 1 tab PO DAILY [facility] Last Admin: 01/07/23 07:52 Dose: 1 tab Documented By: ADRIANE Ondansetron HCl (Ondansetron Hcl 4 Mg/2 Ml Vial) 4 mg IVPUSH Q8H PRN PRN Reason: Nausea and Vomiting Potassium Chloride (Potassium Chloride Er 10 Meq Tablet.Er) 10 meq PO DAILY [facility] Last Admin: 01/07/23 07:51 Dose: 10 meq Documented By: ADRIANE Sodium Chloride (0.9 % Sodium Chloride Flush 3 Ml Syringe) 3 ml IVFLUSH QSHIFT [facility] Last Admin: 01/07/23 20:43 Dose: 3 ml Documented By: NGUYỄN Labs 01/08/23 08:04 01/09/23 08:06 Labs: Laboratory Results - last 24 hr 01/07/23 01/07/23 01/08/23 09:30 21:08 08:04 MCV 94.4 MCH 31.8 MCHC 33.7 RDW 12.7 Plt Count 201 MPV 10.1 Absolute Nucleated RBC 0.000 Nucleated RBC % (auto) 0.0 Hold Purple Top SEE NOTE O2 Saturation 86.0 ABG pH at Pt Temp 7.40 ABG pCO2 at Pt Temp 43 ABG pO2 at Pt Temp 58 L ABG HCO3 26 ABG Base Excess (Actual) 1.8 Anion Gap 15 Estim Creat Clear Calc 38.8 Estimated GFR 45 Random Glucose 274 H Calcium 8.9 D Microbiology Microbiology Results: Microbiology 01/04/23 Unknown Urine Culture - Final Urine clean catch - Urine bush top Providencia stuartii Enterococcus faecalis Assessment and Plan (1) COPD exacerbation: Status: Acute (2) UTI (urinary tract infection): Status: Acute Plan This is a 87-year-old male with pertinent history of COPD not on home oxygen, essential hypertension, mixed hyperlipidemia, CKD stage 3, mood disorder who was sent to the emergency department for evaluation of dyspnea and hypoxemia. Acute hypoxemic respiratory failure due to acute exacerbation of COPD. decompensated overnight with increased O2 requirement -Bronchodilators: Continue by nebulizer. -continue Steroids, Switch from intravenous to oral administration today -Oxygen:Keep oxygen saturation levels at 88-92%. -Will consider IV Lasix as there maybe component of heart failure UTI: Ceftriaxone started on 01/04/2023, cultre= providencia, sensitive to ceftriaxone Lactic acidosis: Due to hypoxemia, not sepsis. OLEG: cause unknown, nephrology consult, repeat lab pending today Essential hypertension: Continue home antihypertensives. Mixed hyperlipidemia: On statin and ezetimibe. Mood disorder: Continue home mood stabilizers. DNR/DNI Cardiac diet Nee for inpatient: management of copd with hypoxia, acute need of O2, UTI need IV Abx Plan discussed with over the phone Time Spent With Patient Time: Total time managing care of this patient today ____ minutes. Quality Stroke Does the patient have a stroke diagnosis?: No VTE Prior VTE?: No VTE Risk Level:: Medical - moderate - high VTE Device Contraindication: Treatment Not Indicated VTE Drug Contraindication: N/A - Med Ordered
--- NOTE | 2023-01-08 09:18 | PC.NURSE ---
Made MD aware that pt is satting in the low 80's to 90's, not in any distress at this time. Will ctm
[2023-01-08 09:23] LABS: Anion Gap 14 (12-20); Blood Urea Nitrogen 43 mg/dL (9-16); Carbon Dioxide 25 mmol/L (22-29); Chloride 104 mmol/L (96-108); Creatinine Clr Calc Pharmacy 43.2; Estimated Glomerular Filt Rate 51; Glucose Random 252 mg/dL (60-115); Potassium 4.2 mmol/L (3.3-5.1); Sodium 139 mmol/L (135-145)
[2023-01-08] MEDS: Multivitamin TABLET 1 TAB PO (09:32)
[2023-01-08] MEDS: Metoprolol Succinate ER 50 MG TAB.ER.24H PO (09:32)
[2023-01-08] MEDS: Magnesium Oxide 400 MG TABLET PO (09:32)
[2023-01-08] MEDS: Folic Acid 1 MG TABLET PO (09:32)
[2023-01-08] MEDS: Ezetimibe 10 MG TABLET PO (09:32)
[2023-01-08] MEDS: Potassium Chloride ER 10 MEQ TABLET.ER PO (09:32)
[2023-01-08] MEDS: Cyanocobalamin (Vitamin B-12) 1,000 MCG TABLET 2000 MCG PO (09:33)
[2023-01-08] MEDS: Escitalopram Oxalate 5 MG TABLET PO (09:33)
[2023-01-08] MEDS: amLODIPine Besylate 10 MG TABLET PO (09:33)
[2023-01-08] MEDS: LORazepam 0.5 MG TABLET 0.25 MG PO (11:56)
[2023-01-08] MEDS: Furosemide 40 MG/4 ML VIAL IVPUSH (13:17)
--- NOTE | 2023-01-08 13:24 | P.CDIM_ITS ---
PROVIDER RESPONSE TEXT: To clarify, the appropriate diagnosis supported by the clinical indicators: Acute QUERY TEXT: PHYSICIAN'S DOCUMENTATION REQUEST Date of Query: 01/05/2023 01:52 PM EDT Patient Name: Maik Lynch Admit Date: 01/04/2023 Dear Oneil Schilling, A review of the medical record indicates additional documentation may be needed. Please review below and update the documentation accordingly. Clinical Indicators: Lactic acid on 01/03/23: 2.9 Per Hospitalist Progress Note 01/05/23: Lactic acidosis: Due to hypoxemia, not sepsis. Clarify which of the following accurately represents the acuity of the Lactic acidosis. Possible options might include: Acute Acute on chronic Compensated Chronic stable condition Other (explain)Clinically unable to determine (explain)Thank you, Shima Dejesus RN Use of terms such as suspected, likely, concern for, or probable (associated with a specific diagnosi s that is being evaluated, monitored, or treated as if it exists) are acceptable and can be coded in the inpatient se tting, when documented at the time of discharge. Please use your independent medical judgment in providing your response. THIS QUERY IS PART OF THE PERMANENT MEDICAL RECORD
--- NOTE | 2023-01-08 18:22 | P.PNNP_ITS ---
Subjective Subjective Date of Service: 01/08/23 Interval history: Seen and examied, event snoted Remains very SOB Physical Exam 2 Vital Signs: Vital Signs: Last Vital Signs Temp 97.9 F 01/08/23 16:00 Pulse 83 01/08/23 16:00 Resp 18 01/08/23 16:00 BP 127/65 01/08/23 16:00 Pulse Ox 89 L 01/08/23 16:00 O2 Del Method Oxymask 01/08/23 16:00 O2 Flow Rate 10 01/08/23 16:00 Oxygen Flow Rate 4 01/03/23 21:03 BMI result Body Mass Index 32.5 Const: Other: General: AO X 2, no acute distress Resp: sandhya rhonchi CVS: S1,S2,RRR GI: +BS, NT, no distention Skin: No rash Neuro: motor grossly intact Psych: appropriate affect Objective Data Labs 01/08/23 08:04 01/08/23 08:04 Labs: Laboratory Results - last 24 hr 01/07/23 01/08/23 21:08 08:04 WBC 11.4 H RBC 3.55 L Hgb 11.3 L Hct 33.5 L MCV 94.4 MCH 31.8 MCHC 33.7 RDW 12.7 Plt Count 201 MPV 10.1 Absolute Nucleated RBC 0.000 Nucleated RBC % (auto) 0.0 O2 Saturation 86.0 ABG pH at Pt Temp 7.40 ABG pCO2 at Pt Temp 43 ABG pO2 at Pt Temp 58 L ABG HCO3 26 ABG Base Excess (Actual) 1.8 Sodium 139 Potassium 4.2 Chloride 104 Carbon Dioxide 25 Anion Gap 14 BUN 43 H Creatinine 1.34 Estim Creat Clear Calc 43.2 Estimated GFR 51 Random Glucose 252 H Calcium 9.0 Microbiology Microbiology Results: Microbiology 01/04/23 Unknown Urine clean catch - Urine bush top Urine Culture - Final Providencia stuartii Enterococcus faecalis 01/03/23 21:44 Blood - Venous Blood Culture - Preliminary No growth after 48 hours. 01/03/23 21:48 Blood - Venous Blood Culture - Preliminary No growth after 48 hours. Procedures Date of Service Date of Service: 01/08/23 Assessment & Plan Assessment and plan (1) COPD exacerbation: Status: Acute (2) UTI (urinary tract infection): Status: Acute Plan OLEG: SCr stable 1.4-1.5 Resp failure: COPD > CHF HTN REC: agree with incr diuretics; traclk UOP/renal func; avoid NToxins Time Spent With Patient Time: Total time managing care of this patient today ____ minutes. Progress Note: Quality Stroke Does the patient have a stroke diagnosis?: No
[2023-01-08] MEDS: Mirtazapine 15 MG TABLET 7.5 MG PO (20:00)
[2023-01-08] MEDS: Atorvastatin Calcium 80 MG TABLET PO (20:00)
[2023-01-08] MEDS: Enoxaparin Sodium 40 MG/0.4 ML SYRINGE SUBCUT (22:43)
[2023-01-08] MEDS: guaiFENesin 100 MG/5 ML LIQUID 10 ML PO (23:34)
[2023-01-09] VITALS (18 sets, daily range): BP systolic 102–189; BP diastolic 59–85; PULSE 55–94; RESP 16–30; TEMP 36.1–36.4; O2SAT 49–98
[2023-01-09] MEDS: Melatonin 3 MG TABLET 6 MG PO (00:46)
--- NOTE | 2023-01-09 04:13 | PM.EVENT ---
Event Note Date of Service: 01/09/23 Event Note: Rapid response was called on the patient as patient was noted to be hypoxemic. Was placed on non-rebreather with improvement in oxygenation. Obtained ABG and chest x-ray. Bilateral crackles heard. Ordered IV Lasix and CPAP. Noted patient is DNR/DNI. Closely monitor Time Spent With Patient Time: Total time managing care of this patient today ____ minutes.
[2023-01-09] MEDS: Furosemide 40 MG/4 ML VIAL IVPUSH ×2 (04:20→21:10)
[2023-01-09 04:27] LABS: ABG Base Excess 7.2 mmol/L; ABG HCO3 33 mmol/L (22-26); ABG pCO2 54 mmHg (32-45); ABG pH 7.39 (7.35-7.45); ABG pO2 65 mmHg (83-108)
--- NOTE | 2023-01-09 04:44 | PC.NURSE ---
0400 pt rang call dawkins c/o difficulty breathing 02sat's 40's-50's on 15L oxymask.Rapid response called.stat ABG's ,CXR and 40mg IV lasix ordered.pt placed on 100% non rebreather 02 sats gradually went up to 80's.Pt placed on CPAP .[id number]%.Pt resting comfortably at present time call dawkins with in reach.Pt on continuous 02sat monitor.
[2023-01-09 05:00] LABS: ABG Refer to POC result
[2023-01-09 05:00] LABS: B Type Natriuretic Peptide 816 pg/mL (<100)
[2023-01-09] MEDS: Albuterol/Iprat 2.5/0.5MG 3 ML AMPUL.NEB INHALE ×4 (07:38→19:10)
[2023-01-09 08:32] LABS: Anion Gap 15 (12-20); Blood Urea Nitrogen 43 mg/dL (9-16); Calcium 9.3 mg/dL (8.4-10.2); Carbon Dioxide 29 mmol/L (22-29); Chloride 100 mmol/L (96-108); Creatinine Clr Calc Pharmacy 40.2; Estimated Glomerular Filt Rate 47; Glucose Random 152 mg/dL (60-115); Potassium 3.4 mmol/L (3.3-5.1); Sodium 141 mmol/L (135-145)
[2023-01-09] MEDS: Metoprolol Succinate ER 50 MG TAB.ER.24H PO (09:39)
[2023-01-09] MEDS: Cyanocobalamin (Vitamin B-12) 1,000 MCG TABLET 2000 MCG PO (09:39)
[2023-01-09] MEDS: Escitalopram Oxalate 5 MG TABLET PO (09:39)
[2023-01-09] MEDS: Magnesium Oxide 400 MG TABLET PO (09:39)
[2023-01-09] MEDS: Potassium Chloride ER 10 MEQ TABLET.ER PO (09:39)
[2023-01-09] MEDS: amLODIPine Besylate 10 MG TABLET PO (09:39)
[2023-01-09] MEDS: Ezetimibe 10 MG TABLET PO (09:39)
[2023-01-09] MEDS: Multivitamin TABLET 1 TAB PO (09:39)
[2023-01-09] MEDS: Folic Acid 1 MG TABLET PO (09:39)
--- NOTE | 2023-01-09 09:58 | HO.PM.IMPN ---
Subjective Subjective Date of Service: 01/09/23 Interval History: patient decompensated again overnight, and is now on cpapa Physical Exam Vital Signs: Vital Signs: Last Vital Signs Temp 96.9 F 01/09/23 07:59 Pulse 94 01/09/23 07:59 Resp 20 01/09/23 07:59 BP 125/72 01/09/23 07:59 Pulse Ox 98 01/09/23 07:59 O2 Del Method BiPAP 01/09/23 07:59 O2 Flow Rate 15 01/09/23 04:30 Oxygen Flow Rate 4 01/03/23 21:03 BMI result Body Mass Index 32.5 Const: Other: General: alert, on cpapa now, no distress Resp: sandhya rhonchi CVS: S1,S2,RRR GI: +BS, NT, no distention, trace edema Skin: No rash Neuro: motor grossly intact Psych: appropriate affect Objective Data Active Medications Acetaminophen (Acetaminophen 325 Mg Tablet) 650 mg PO Q6H PRN PRN Reason: Pain, Mild (Pain Scale 1-3) Albuterol/Ipratropium (Albuterol/Iprat 2.5/0.5mg 3 Ml Ampul.Neb) 3 ml INHALE RQ4H WHILE AWAKE [facility] Last Admin: 01/09/23 07:38 Dose: 3 ml Documented By: TRISHA Albuterol/Ipratropium (Albuterol/Iprat 2.5/0.5mg 3 Ml Ampul.Neb) 3 ml INHALE Q4H PRN PRN Reason: Wheezing Last Admin: 01/08/23 05:25 Dose: 3 ml Documented By: KYM Amlodipine Besylate (Amlodipine Besylate 10 Mg Tablet) 10 mg PO DAILY [facility]; Protocol Last Admin: 01/09/23 09:39 Dose: 10 mg Documented By: CARLOS Atorvastatin Calcium (Atorvastatin Calcium 80 Mg Tablet) 80 mg PO BEDTIME [facility] Last Admin: 01/08/23 20:00 Dose: 80 mg Documented By: NGUYỄN Cyanocobalamin (Cyanocobalamin (Vitamin B-12) 1,000 Mcg Tablet) 2,000 mcg PO DAILY [facility] Last Admin: 01/09/23 09:39 Dose: 2,000 mcg Documented By: CARLOS Ezetimibe (Ezetimibe 10 Mg Tablet) 10 mg PO DAILY [facility] Last Admin: 01/09/23 09:39 Dose: 10 mg Documented By: CARLOS Enoxaparin Sodium (Enoxaparin Sodium 40 Mg/0.4 Ml Syringe) 40 mg SUBCUT Q24H [facility] Last Admin: 01/08/23 22:43 Dose: 40 mg Documented By: NGUYỄN Escitalopram Oxalate (Escitalopram Oxalate 5 Mg Tablet) 5 mg PO DAILY [facility] Last Admin: 01/09/23 09:39 Dose: 5 mg Documented By: CARLOS Folic Acid (Folic Acid 1 Mg Tablet) 1 mg PO DAILY [facility] Last Admin: 01/09/23 09:39 Dose: 1 mg Documented By: CARLOS Guaifenesin (Guaifenesin 100 Mg/5 Ml Liquid) 10 ml PO Q4H PRN PRN Reason: Cough Last Admin: 01/08/23 23:34 Dose: 10 ml Documented By: NGUYỄN Azithromycin 500 mg/ Sodium (Chloride) 250 mls @ 125 mls/hr IV Q24H [facility] Last Infusion: 01/09/23 00:49 Dose: Infused Documented By: NGUYỄN Ceftriaxone Sodium 1 gm/ (Sodium Chloride) 50 mls @ 100 mls/hr IV Q24H [facility] Last Admin: 01/09/23 09:39 Dose: 1 mls/hr Documented By: CARLOS Latanoprost (Latanoprost 0.005 % Ophth Lolita 2.5 Ml Drops) 0 drop EYE-BOTH BEDTIME [facility] Last Admin: 01/08/23 20:01 Dose: 1 drop Documented By: NGUYỄN Lorazepam (Lorazepam 0.5 Mg Tablet) 0.25 mg PO Q6H PRN PRN Reason: anxiety/restlessness Last Admin: 01/08/23 11:56 Dose: 0.25 mg Documented By: CARLOS Magnesium Oxide (Magnesium Oxide 400 Mg Tablet) 400 mg PO DAILY [facility] Last Admin: 01/09/23 09:39 Dose: 400 mg Documented By: CARLOS Melatonin (Melatonin 3 Mg Tablet) 6 mg PO BEDTIME PRN PRN Reason: Insomnia Last Admin: 01/09/23 00:46 Dose: 6 mg Documented By: NGUYỄN Metoprolol Succinate (Metoprolol Succinate Er 50 Mg Tab.Er.24h) 50 mg PO DAILY [facility]; Protocol Last Admin: 01/09/23 09:39 Dose: 50 mg Documented By: CARLOS Mirtazapine (Mirtazapine 15 Mg Tablet) 7.5 mg PO BEDTIME [facility] Last Admin: 01/08/23 20:00 Dose: 7.5 mg Documented By: NGUYỄN Multivitamins/Vitamin C (Multivitamin Tablet) 1 tab PO DAILY [facility] Last Admin: 01/09/23 09:39 Dose: 1 tab Documented By: CARLOS Ondansetron HCl (Ondansetron Hcl 4 Mg/2 Ml Vial) 4 mg IVPUSH Q8H PRN PRN Reason: Nausea and Vomiting Potassium Chloride (Potassium Chloride Er 10 Meq Tablet.Er) 10 meq PO DAILY [facility] Last Admin: 01/09/23 09:39 Dose: 10 meq Documented By: CARLOS Sodium Chloride (0.9 % Sodium Chloride Flush 3 Ml Syringe) 3 ml IVFLUSH QSHIFT [facility] Last Admin: 01/09/23 09:40 Dose: 3 ml Documented By: CARLOS Labs 01/08/23 08:04 01/09/23 08:06 Labs: Laboratory Results - last 24 hr 01/09/23 01/09/23 01/09/23 04:20 04:26 08:06 O2 Saturation 88.0 ABG pH at Pt Temp 7.39 ABG pCO2 at Pt Temp 54 H ABG pO2 at Pt Temp 65 L ABG HCO3 33 H ABG Base Excess (Actual) 7.2 Anion Gap 15 Estim Creat Clear Calc 40.2 Estimated GFR 47 Random Glucose 152 H Calcium 9.3 B-Natriuretic Peptide 816 H Microbiology Microbiology Results: Microbiology 01/03/23 21:44 Blood Culture - Final Blood - Venous No growth after 5 days. 01/03/23 21:48 Blood Culture - Final Blood - Venous No growth after 5 days. 01/04/23 Unknown Urine Culture - Final Urine clean catch - Urine bush top Providencia stuartii Enterococcus faecalis Assessment and Plan (1) COPD exacerbation: Status: Acute (2) UTI (urinary tract infection): Status: Acute Plan This is a 87-year-old male with pertinent history of COPD not on home oxygen, essential hypertension, mixed hyperlipidemia, CKD stage 3, mood disorder who was sent to the emergency department for evaluation of dyspnea and hypoxemia. Acute hypoxemic respiratory failure due to acute exacerbation of COPD. decompensated again overnight with increased O2 requirement and is now on cpap. DDx: heart failure, COPD, PNA -repeat CXR this morning -Bronchodilators: Continue by nebulizer. -Oxygen:Keep oxygen saturation levels at 88-92%. -Will consider IV Lasix as there maybe component of heart failure -IV Lasix and continue monitoring renal function -Echo tomorrow UTI: Ceftriaxone started on 01/04/2023, cultre= providencia, sensitive to ceftriaxone Lactic acidosis: Due to hypoxemia, not sepsis. OLEG: cause unknown, nephrology consult, repeat lab is better Essential hypertension: Continue home antihypertensives. Mixed hyperlipidemia: On statin and ezetimibe. Mood disorder: Continue home mood stabilizers. DNR/DNI Cardiac diet Nee for inpatient: management of copd with hypoxia, acute need of O2, UTI need IV Abx Plan discussed with over the phone Time Spent With Patient Time: Total time managing care of this patient today ____ minutes. Quality Stroke Does the patient have a stroke diagnosis?: No VTE Prior VTE?: No VTE Risk Level:: Medical - moderate - high VTE Device Contraindication: Treatment Not Indicated VTE Drug Contraindication: N/A - Med Ordered
[2023-01-09] MEDS: LORazepam 0.5 MG TABLET 0.25 MG PO (12:45)
[2023-01-09] MEDS: Mirtazapine 15 MG TABLET 7.5 MG PO (19:34)
[2023-01-09] MEDS: Atorvastatin Calcium 80 MG TABLET PO (19:34)
--- NOTE | 2023-01-09 21:38 | PC.NURSE ---
Seth texted Dr. Vega at approximately 857pm. Pt O2 sats were only reaching 84-85. I hyperoxygenated him and contacted respiratory. Gave pt IV Lasix 40mg push, connected a new Oximeter, repositioned and readjusted cpap mask. Will ctm patient closely. pt O2 is now at 91
--- NOTE | 2023-01-09 22:49 | PC.NURSE ---
Call made [place] [facility] [place] closely [place]. I called his Michelle at 1045pm to make her aware of the change and to answer any questions that she may have. Informed her that he will be in room 445.
[2023-01-09] MEDS: Enoxaparin Sodium 40 MG/0.4 ML SYRINGE SUBCUT (23:28)
[2023-01-10] VITALS (16 sets, daily range): BP systolic 110–144; BP diastolic 55–80; PULSE 78–120; RESP 16–31; TEMP 36.1–37.1; O2SAT 84–98
[2023-01-10 07:21] LABS: Anion Gap 16 (12-20); Blood Urea Nitrogen 37 mg/dL (9-16); Carbon Dioxide 31 mmol/L (22-29); Chloride 97 mmol/L (96-108); Creatinine Clr Calc Pharmacy 43.2; Estimated Glomerular Filt Rate 51; Glucose Random 112 mg/dL (60-115); Potassium 3.4 mmol/L (3.3-5.1); Sodium 141 mmol/L (135-145)
[2023-01-10] MEDS: Albuterol/Iprat 2.5/0.5MG 3 ML AMPUL.NEB INHALE ×4 (07:29→19:31)
--- NOTE | 2023-01-10 10:19 | MHC.CM.PN ---
Per ROUNDS discussion, Patient is not yet medically cleared for dc (requiring CPAP & 2 IV ABT); Returning to LTC @ [facility] is the goal and CM will continue to follow.
--- NOTE | 2023-01-10 11:14 | P.PNIM_ITS ---
Subjective Subjective Date of Service: 01/12/23 Interval History: Patient continues to do poorly, relying on BiPAP all night to maintain oxgygen, has periods of agiations, confusion Review of Systems alert, no apparent resp distress Physical Exam 2 Vital Signs: Vital Signs: Last Vital Signs Temp 97.5 F 01/10/23 07:47 Pulse 84 01/10/23 07:47 Resp 20 01/10/23 07:47 BP 117/69 01/10/23 07:47 Pulse Ox 90 L 01/10/23 07:47 O2 Del Method CPAP 01/10/23 07:47 O2 Flow Rate 15 01/09/23 04:30 FiO2 65 01/10/23 07:47 Oxygen Flow Rate 4 01/03/23 21:03 BMI result Body Mass Index 32.5 Const: Other: General: alert, on bipap, no aparent distress Resp: sandhya rhonchi, no accessory muslce use CVS: S1,S2,RRR GI: +BS, NT, no distention, trace edema Skin: No rash Neuro: motor grossly intact Psych: appropriate affect Objective Data Active Medications Acetaminophen (Acetaminophen 325 Mg Tablet) 650 mg PO Q6H PRN PRN Reason: Pain, Mild (Pain Scale 1-3) Albuterol/Ipratropium (Albuterol/Iprat 2.5/0.5mg 3 Ml Ampul.Neb) 3 ml INHALE RQ4H WHILE AWAKE ON LICENSE OF [facility] Last Admin: 01/10/23 07:29 Dose: 3 ml Documented By: MIGUEL Albuterol/Ipratropium (Albuterol/Iprat 2.5/0.5mg 3 Ml Ampul.Neb) 3 ml INHALE Q4H PRN PRN Reason: Wheezing Last Admin: 01/08/23 05:25 Dose: 3 ml Documented By: KYM Amlodipine Besylate (Amlodipine Besylate 10 Mg Tablet) 10 mg PO DAILY ON LICENSE OF [facility]; Protocol Last Admin: 01/09/23 09:39 Dose: 10 mg Documented By: CARLOS Atorvastatin Calcium (Atorvastatin Calcium 80 Mg Tablet) 80 mg PO BEDTIME ON LICENSE OF [facility] Last Admin: 01/09/23 19:34 Dose: 80 mg Documented By: CARLOS Cyanocobalamin (Cyanocobalamin (Vitamin B-12) 1,000 Mcg Tablet) 2,000 mcg PO DAILY ON LICENSE [facility] Last Admin: 01/09/23 09:39 Dose: 2,000 mcg Documented By: CARLOS Ezetimibe (Ezetimibe 10 Mg Tablet) 10 mg PO DAILY ON [facility] Last Admin: 01/09/23 09:39 Dose: 10 mg Documented By: CARLOS Enoxaparin Sodium (Enoxaparin Sodium 40 Mg/0.4 Ml Syringe) 40 mg SUBCUT Q24H ON LICENSE OF [facility] Last Admin: 01/09/23 23:28 Dose: 40 mg Documented By: DESMOND Escitalopram Oxalate (Escitalopram Oxalate 5 Mg Tablet) 5 mg PO DAILY ON LICENSE [facility] Last Admin: 01/09/23 09:39 Dose: 5 mg Documented By: CARLOS Folic Acid (Folic Acid 1 Mg Tablet) 1 mg PO DAILY ON [facility] Last Admin: 01/09/23 09:39 Dose: 1 mg Documented By: CARLOS Guaifenesin (Guaifenesin 100 Mg/5 Ml Liquid) 10 ml PO Q4H PRN PRN Reason: Cough Last Admin: 01/08/23 23:34 Dose: 10 ml Documented By: NGUYỄN Azithromycin 500 mg/ Sodium (Chloride) 250 mls @ 125 mls/hr IV Q24H ON LICENSE [facility] Last Infusion: 01/10/23 01:43 Dose: Infused Documented By: DESMOND Ceftriaxone Sodium 1 gm/ (Sodium Chloride) 50 mls @ 100 mls/hr IV Q24H ON LICENSE OF [facility] Last Admin: 01/09/23 09:39 Dose: 1 mls/hr Documented By: CARLOS Latanoprost (Latanoprost 0.005 % Ophth Lolita 2.5 Ml Drops) 0 drop EYE-BOTH BEDTIME ON LICENSE [facility] Last Admin: 01/09/23 19:34 Dose: 1 drop Documented By: CARLOS Lorazepam (Lorazepam 0.5 Mg Tablet) 0.25 mg PO Q6H PRN PRN Reason: anxiety/restlessness Last Admin: 01/09/23 12:45 Dose: 0.25 mg Documented By: CARLOS Magnesium Oxide (Magnesium Oxide 400 Mg Tablet) 400 mg PO DAILY ON [facility] Last Admin: 01/09/23 09:39 Dose: 400 mg Documented By: CARLOS Melatonin (Melatonin 3 Mg Tablet) 6 mg PO BEDTIME PRN PRN Reason: Insomnia Last Admin: 01/09/23 00:46 Dose: 6 mg Documented By: NGUYỄN Metoprolol Succinate (Metoprolol Succinate Er 50 Mg Tab.Er.24h) 50 mg PO DAILY ON [facility]; Protocol Last Admin: 01/09/23 09:39 Dose: 50 mg Documented By: CARLOS Mirtazapine (Mirtazapine 15 Mg Tablet) 7.5 mg PO BEDTIME ON LICENSE OF [facility] Last Admin: 01/09/23 19:34 Dose: 7.5 mg Documented By: CARLOS Multivitamins/Vitamin C (Multivitamin Tablet) 1 tab PO DAILY ON [facility] Last Admin: 01/09/23 09:39 Dose: 1 tab Documented By: CARLOS Ondansetron HCl (Ondansetron Hcl 4 Mg/2 Ml Vial) 4 mg IVPUSH Q8H PRN PRN Reason: Nausea and Vomiting Potassium Chloride (Potassium Chloride Er 10 Meq Tablet.Er) 10 meq PO DAILY ON LICENSE [facility] Last Admin: 01/09/23 09:39 Dose: 10 meq Documented By: CARLOS Sodium Chloride (0.9 % Sodium Chloride Flush 3 Ml Syringe) 3 ml IVFLUSH QSHIFT ON LICENSE OF [facility] Last Admin: 01/10/23 00:12 Dose: Not Given Documented By: DESMOND Non-Admin Reason: IV Running Labs 01/12/23 11:12 01/11/23 06:41 Labs: Laboratory Results - last 24 hr 01/10/23 06:46 Anion Gap 16 Estim Creat Clear Calc 43.2 Estimated GFR 51 Random Glucose 112 Calcium 9.0 Assessment and Plan (1) COPD exacerbation: Status: Acute (2) UTI (urinary tract infection): Status: Acute Plan This is a 87-year-old male with pertinent history of COPD not on home oxygen, essential hypertension, mixed hyperlipidemia, CKD stage 3, mood disorder who was sent to the emergency department for evaluation of dyspnea and hypoxemia. Acute hypoxemic respiratory failure initially treated for pneumonia which has been apropriately treated with IV, COPD exacerbation was treated with IV steroid and bronchodilators by [facility]. Patient's condition has worsened overtime with increasing O2 requirement and now BiPAP to maintain O2, CXR has ? edema, infiltrate, atelectasis or effusion and BNP has been high so has been treated with IV Lasix. He likely has multifactorial acute hypoxic respiratory failure:copd, pna, heart failure. -Continue IV Abx to cover PNA -IV steroid and bronchodilators for copd -continue IV Lasix for heart failure, echo pending -cardiology and pulmonology consult -BiPAP to maintain O2 -goals of care conversation with family UTI: Ceftriaxone started on 01/04/2023, cultre= providencia, sensitive to ceftriaxone Lactic acidosis: Due to hypoxemia, not sepsis. OLEG on CKD: ? cardiorenal syndrome, Creatine is better Essential hypertension: Continue home antihypertensives. Mixed hyperlipidemia: On statin and ezetimibe. Mood disorder: Continue home mood stabilizers. DNR/DNI Cardiac diet Nee for inpatient: management of copd with hypoxia, acute need of O2, UTI need IV Abx Discussed with daughters at bedside Time Spent With Patient Time: Total time managing care of this patient today ____ minutes. Quality Stroke Does the patient have a stroke diagnosis?: No VTE Prior VTE?: No VTE Risk Level:: Medical - moderate - high VTE Device Contraindication: Treatment Not Indicated VTE Drug Contraindication: N/A - Med Ordered
[2023-01-10] MEDS: methylPREDNISolone Sod Succ 40 MG/ML VIAL 20 MG IVPUSH ×2 (12:01→23:19)
[2023-01-10] MEDS: Escitalopram Oxalate 5 MG TABLET PO (12:02)
[2023-01-10] MEDS: Ezetimibe 10 MG TABLET PO (12:02)
[2023-01-10] MEDS: Cyanocobalamin (Vitamin B-12) 1,000 MCG TABLET 2000 MCG PO (12:02)
[2023-01-10] MEDS: Folic Acid 1 MG TABLET PO (12:03)
[2023-01-10] MEDS: Magnesium Oxide 400 MG TABLET PO (12:03)
[2023-01-10] MEDS: Multivitamin TABLET 1 TAB PO (12:03)
[2023-01-10] MEDS: Potassium Chloride ER 10 MEQ TABLET.ER PO (12:03)
[2023-01-10] MEDS: amLODIPine Besylate 10 MG TABLET PO (12:03)
[2023-01-10] MEDS: Metoprolol Succinate ER 50 MG TAB.ER.24H PO (12:10)
[2023-01-10] MEDS: Furosemide 100 MG/10 ML VIAL 60 MG IVPUSH (14:52)
--- NOTE | 2023-01-10 16:47 | P.CONPL_ITS ---
History of Present Illness History of Present Illness Consult date: 01/10/23 Chief complaint: Dyspnea Narrative: This 87 years old gentleman having been admitted since 01/03, has been treated for acute exacerbation of COPD with IV steroids and antibiotics. He continues to get worse and his oxygen requirement has increased. He does not have any ongoing fever. He has quit anxious and becoming . Agitated His oxygenation is improved with the use of CPAP but he is not keeping it on. He also did not tolerate high-flow O2. Review of Systems 2 Review of Systems: Yes Unobtainable due to mental status PMFSH Past Medical History Medical History (Updated 01/10/23 @ 16:49 by Alina Alvarez MD) Atelectasis of left lung BPH (benign prostatic hyperplasia) Frequent falls On beta priscilla at home Overweight (BMI 25.0-29.9) Depression Urothelial carcinoma of bladder Vitamin B12 deficiency Vitamin D deficiency GERD without esophagitis Anemia Primary osteoarthritis, right shoulder Osteoarthritis of both knees Chronic kidney disease, stage III (moderate) Impaired fasting glucose Elevated liver enzymes Subdural hematoma Benign essential hypertension Pure hypercholesterolemia Coronary artery disease Family History Family History Father CVD (cardiovascular disease) Mother Hypertension Surgical History Surgical History History of tonsillectomy History of transurethral resection of bladder tumor (TURBT) History of hip surgery History of transurethral resection of prostate History of shoulder surgery Social History Social History Household Members: Other Housing: Custodial Housing Other:: [employer] [facility] Are you a primary career counselor to a significant other at home: No Do you presently have visiting nurse or other home services: No Alcohol intake: never Patient Tobacco Use Status: Former Tobacco user Smoked in Last 30 Days: No Use of substances other than those prescribed or required for medical reasons: No Currently Displaying Signs/Symptoms of Drug Intoxication Withdrawal: No Have you been hit, kicked, punched, or otherwise hurt by someone within the past year? If so, by whom?: No Do you feel safe in your current relationship?: Yes Is there a partner from a previous relationship who is making you feel unsafe now?: No Are you made to feel afraid or neglected: No Advance Directives: Yes Advance Directives Information Provided: No Advance Directives on File: Yes Advance Directives Date on File: 06/29/20 Do you have thoughts of harming others: None Do you have a plan to hurt others: No Plan Recently lost weight without trying: No Eating poorly because of decreased appetite: No Poor oral hygiene: No service: Yes Meds Allergies Allergy/AdvReac Type Severity Reaction Status Date / Time lisinopril Allergy Unknown Verified 09/10/22 11:38 Active Medications: Current Medications Acetaminophen (Acetaminophen 325 Mg Tablet) 650 mg PO Q6H PRN PRN Reason: Pain, Mild (Pain Scale 1-3) Albuterol/Ipratropium (Albuterol/Iprat 2.5/0.5mg 3 Ml Ampul.Neb) 3 ml INHALE RQ4H WHILE AWAKE [facility] Last Admin: 01/10/23 15:22 Dose: 3 ml Albuterol/Ipratropium (Albuterol/Iprat 2.5/0.5mg 3 Ml Ampul.Neb) 3 ml INHALE Q4H PRN PRN Reason: Wheezing Last Admin: 01/08/23 05:25 Dose: 3 ml Amlodipine Besylate (Amlodipine Besylate 10 Mg Tablet) 10 mg PO DAILY [facility]; Protocol Last Admin: 01/10/23 12:03 Dose: 10 mg Atorvastatin Calcium (Atorvastatin Calcium 80 Mg Tablet) 80 mg PO BEDTIME [facility] Last Admin: 01/09/23 19:34 Dose: 80 mg Cyanocobalamin (Cyanocobalamin (Vitamin B-12) 1,000 Mcg Tablet) 2,000 mcg PO DAILY [facility] Last Admin: 01/10/23 12:02 Dose: 2,000 mcg Ezetimibe (Ezetimibe 10 Mg Tablet) 10 mg PO DAILY [facility] Last Admin: 01/10/23 12:02 Dose: 10 mg Enoxaparin Sodium (Enoxaparin Sodium 40 Mg/0.4 Ml Syringe) 40 mg SUBCUT Q24H [facility] Last Admin: 01/09/23 23:28 Dose: 40 mg Escitalopram Oxalate (Escitalopram Oxalate 5 Mg Tablet) 5 mg PO DAILY [facility] Last Admin: 01/10/23 12:02 Dose: 5 mg Folic Acid (Folic Acid 1 Mg Tablet) 1 mg PO DAILY [facility] Last Admin: 01/10/23 12:03 Dose: 1 mg Guaifenesin (Guaifenesin 100 Mg/5 Ml Liquid) 10 ml PO Q4H PRN PRN Reason: Cough Last Admin: 01/08/23 23:34 Dose: 10 ml Azithromycin 500 mg/ Sodium (Chloride) 250 mls @ 125 mls/hr IV Q24H [facility] Last Infusion: 01/10/23 01:43 Dose: Infused Ceftriaxone Sodium 1 gm/ (Sodium Chloride) 50 mls @ 100 mls/hr IV Q24H [facility] Last Admin: 01/10/23 12:06 Dose: 1 mls/hr Latanoprost (Latanoprost 0.005 % Ophth Lolita 2.5 Ml Drops) 0 drop EYE-BOTH BEDTIME [facility] Last Admin: 01/09/23 19:34 Dose: 1 drop Lorazepam (Lorazepam 0.5 Mg Tablet) 0.25 mg PO Q6H PRN PRN Reason: anxiety/restlessness Last Admin: 01/09/23 12:45 Dose: 0.25 mg Magnesium Oxide (Magnesium Oxide 400 Mg Tablet) 400 mg PO DAILY [facility] Last Admin: 01/10/23 12:03 Dose: 400 mg Melatonin (Melatonin 3 Mg Tablet) 6 mg PO BEDTIME PRN PRN Reason: Insomnia Last Admin: 01/09/23 00:46 Dose: 6 mg Methylprednisolone Sodium Succinate (Methylprednisolone Sod Succ 40 Mg/Ml Vial) 20 mg IVPUSH Q12H [facility] Last Admin: 01/10/23 12:01 Dose: 20 mg Metoprolol Succinate (Metoprolol Succinate Er 50 Mg Tab.Er.24h) 50 mg PO DAILY [facility]; Protocol Last Admin: 01/10/23 12:10 Dose: 50 mg Mirtazapine (Mirtazapine 15 Mg Tablet) 7.5 mg PO BEDTIME [facility] Last Admin: 01/09/23 19:34 Dose: 7.5 mg Multivitamins/Vitamin C (Multivitamin Tablet) 1 tab PO DAILY [facility] Last Admin: 01/10/23 12:03 Dose: 1 tab Ondansetron HCl (Ondansetron Hcl 4 Mg/2 Ml Vial) 4 mg IVPUSH Q8H PRN PRN Reason: Nausea and Vomiting Potassium Chloride (Potassium Chloride Er 10 Meq Tablet.Er) 10 meq PO DAILY [facility] Last Admin: 01/10/23 12:03 Dose: 10 meq Sodium Chloride (0.9 % Sodium Chloride Flush 3 Ml Syringe) 3 ml IVFLUSH QSHIFT [facility] Last Admin: 01/10/23 14:11 Dose: Not Given Home Medications Medication Instructions Recorded Confirmed Last Taken Type atorvastatin 80 mg tablet 80 mg PO BEDTIME 03/25/20 01/03/23 01/03/23 History ezetimibe 10 mg tablet 10 mg PO DAILY 03/25/20 01/03/23 01/03/23 History cholecalciferol (vitamin D3) 125 250 mcg PO DAILY 07/03/20 01/03/23 01/03/23 History mcg (5,000 unit) tablet (Vitamin D3) latanoprost 0.005 % eye drops 1 drp ophthalmic (eye) BEDTIME 07/03/20 01/03/23 01/03/23 History vitamins A,C,H-tugg-newdgc 2,148 1 tab PO BID 07/03/20 01/03/23 01/03/23 History mcg-113 mg-45 mg-17.4 mg tablet (PreserVision AREDS) acetaminophen 325 mg tablet 650 mg PO Q6H PRN pain/ fever 08/06/22 01/03/23 01/03/23 History albuterol sulfate 90 mcg/actuation 2 puff inhalation Q4H PRN Wheezing 08/06/22 01/04/23 01/03/23 History aerosol inhaler (ProAir HFA) amlodipine 10 mg tablet 10 mg PO DAILY 08/06/22 01/03/23 01/03/23 History cyanocobalamin (vitamin B-12) 2,000 mcg PO DAILY 08/06/22 01/03/23 01/03/23 History 1,000 mcg tablet escitalopram oxalate 5 mg tablet 5 mg PO DAILY 08/06/22 01/03/23 01/03/23 History hydrochlorothiazide 25 mg tablet 25 mg PO DAILY 08/06/22 01/03/23 01/03/23 History magnesium oxide 400 mg PO DAILY 08/06/22 01/03/23 01/03/23 History metoprolol succinate 50 mg 50 mg PO DAILY 08/06/22 01/03/23 01/03/23 History tablet,extended release 24 hr mirtazapine 15 mg tablet 7.5 mg PO BEDTIME 08/06/22 01/04/23 01/03/23 History potassium chloride 10 mEq 10 meq PO DAILY 08/06/22 01/03/23 01/03/23 History tablet,extended release (K-Tab) folic acid 1 mg tablet 1 mg PO DAILY 09/10/22 01/03/23 01/03/23 History prednisone 20 mg PO DAILY 01/03/23 01/03/23 01/03/23 History amoxicillin 875 mg-potassium 1 tab PO BID 01/04/23 01/04/23 Unknown History clavulanate 125 mg tablet guaifenesin 100 mg/5 mL oral liquid 200 mg PO Q4H PRN Cough 01/04/23 01/04/23 Unknown History Physical Exam 2 Vital Signs: Vital Signs: Last Vital Signs Temp 98.5 F 01/10/23 16:00 Pulse 88 01/10/23 16:00 Resp 22 H 01/10/23 16:00 BP 123/80 01/10/23 16:00 Pulse Ox 92 01/10/23 16:00 O2 Del Method BiPAP 01/10/23 16:00 O2 Flow Rate 8 01/10/23 12:05 FiO2 80 01/10/23 16:00 Oxygen Flow Rate 4 01/03/23 21:03 BMI result Body Mass Index 32.5 This gentleman is somewhat agitated at this time, I was able to listen to his chest. Breath sounds are definitely decreased over the left lower chest. Breath sounds are also decreased over the right base but rest of the right lung is clear. Results Laboratory Findings 01/08/23 08:04 01/10/23 06:46 Abnormal lab findings: Abnormal Labs 01/03/23 01/03/23 01/03/23 21:44 21:45 23:58 WBC 16.3 H RBC 3.71 L Hgb 11.8 L Hct 35.4 L Immature Gran % (Auto) 0.6 H Neut % (Auto) 78.2 H Lymph % (Auto) 8.5 L Wilson % (Auto) 12.4 H Lymph # (Auto) Wilson # (Auto) 2.0 H Abs Immat Gran (auto) 0.10 H Absolute Neuts (auto) 12.8 H ABG pCO2 at Pt Temp ABG pO2 at Pt Temp ABG HCO3 Carbon Dioxide BUN 26 H Creatinine Random Glucose 124 H Lactic Acid 2.9 H* B-Natriuretic Peptide Urine Protein 100 (2+) H Urine Blood Small (1+) H Urine Nitrite Positive H Ur Leukocyte Esterase Large (3+) H Urine RBC 6-10 H 01/04/23 01/04/23 01/06/23 04:56 04:57 08:28 WBC 15.0 H 11.4 H RBC 3.82 L 3.42 L Hgb 12.1 L 10.8 L Hct 36.5 L 33.0 L Immature Gran % (Auto) 0.9 H Neut % (Auto) 92.8 H Lymph % (Auto) 4.1 L Wilson % (Auto) Lymph # (Auto) 0.6 L Wilson # (Auto) Abs Immat Gran (auto) 0.14 H Absolute Neuts (auto) 13.9 H ABG pCO2 at Pt Temp ABG pO2 at Pt Temp ABG HCO3 Carbon Dioxide BUN 25 H 38 H Creatinine 1.53 H Random Glucose 215 H 215 H Lactic Acid B-Natriuretic Peptide Urine Protein Urine Blood Urine Nitrite Ur Leukocyte Esterase Urine RBC 01/07/23 01/07/23 01/08/23 09:30 21:08 08:04 WBC 11.4 H RBC 3.55 L Hgb 11.3 L Hct 33.5 L Immature Gran % (Auto) Neut % (Auto) Lymph % (Auto) Wilson % (Auto) Lymph # (Auto) Wilson # (Auto) Abs Immat Gran (auto) Absolute Neuts (auto) ABG pCO2 at Pt Temp ABG pO2 at Pt Temp 58 L ABG HCO3 Carbon Dioxide BUN 41 H 43 H Creatinine 1.49 H Random Glucose 274 H 252 H Lactic Acid B-Natriuretic Peptide Urine Protein Urine Blood Urine Nitrite Ur Leukocyte Esterase Urine RBC 01/09/23 01/09/23 01/09/23 04:20 04:26 08:06 WBC RBC Hgb Hct Immature Gran % (Auto) Neut % (Auto) Lymph % (Auto) Wilson % (Auto) Lymph # (Auto) Wilson # (Auto) Abs Immat Gran (auto) Absolute Neuts (auto) ABG pCO2 at Pt Temp 54 H ABG pO2 at Pt Temp 65 L ABG HCO3 33 H Carbon Dioxide BUN 43 H Creatinine 1.44 H Random Glucose 152 H Lactic Acid B-Natriuretic Peptide 816 H Urine Protein Urine Blood Urine Nitrite Ur Leukocyte Esterase Urine RBC 01/10/23 06:46 WBC RBC Hgb Hct Immature Gran % (Auto) Neut % (Auto) Lymph % (Auto) Wilson % (Auto) Lymph # (Auto) Wilson # (Auto) Abs Immat Gran (auto) Absolute Neuts (auto) ABG pCO2 at Pt Temp ABG pO2 at Pt Temp ABG HCO3 Carbon Dioxide 31 H BUN 37 H Creatinine Random Glucose Lactic Acid B-Natriuretic Peptide Urine Protein Urine Blood Urine Nitrite Ur Leukocyte Esterase Urine RBC Microbiology: Microbiology 01/03/23 21:44 Blood - Venous Blood Culture - Final No growth after 5 days. 01/03/23 21:48 Blood - Venous Blood Culture - Final No growth after 5 days. 01/04/23 Unknown Urine clean catch - Urine bush top Urine Culture - Final Providencia stuartii Enterococcus faecalis Diagnostic Findings Chest x-ray: report reviewed and image reviewed Assessment and Plan (1) COPD exacerbation: Status: Acute (2) Atelectasis of left lung: Status: Acute Plan 87 years old gentleman, is currently confused and somewhat agitated. He has been treated for acute exacerbation of COPD, with adequate regimen. His current problem is increasing hypoxemia, which is secondary to atelectasis of the left lung, on top of chronically elevated left hemidiaphragm. Thromboembolism is another possibility. I think he may also have sleep apnea, . Which is getting worse now Recc . Blood gas study. CTA of the chest which could be done in the morning. D-dimer test Treat him with BiPAP 16/6 CMs and O2 supplementation to keep O2 sat above 90% Alternatively may try high-flow. Because this gentleman is quite agitated and confused he may not be amenable to keep CPAP on. For close observation and treatment he may need to be transferred to ICU . I note that his code status is DNI DNR. Time Spent With Patient Time: Total time managing care of this patient today ____ minutes. Procedures Date of Service Date of Service: 01/10/23
[2023-01-10 17:05] LABS: ABG Base Excess 15.5 mmol/L; ABG HCO3 40 mmol/L (22-26); ABG pCO2 46 mmHg (32-45); ABG pH 7.54 (7.35-7.45); ABG pO2 68 mmHg (83-108)
[2023-01-10 18:15] LABS: ABG Refer to POC result
[2023-01-10] MEDS: Mirtazapine 15 MG TABLET 7.5 MG PO (20:39)
[2023-01-10] MEDS: Atorvastatin Calcium 80 MG TABLET PO (20:40)
[2023-01-10] MEDS: Enoxaparin Sodium 40 MG/0.4 ML SYRINGE SUBCUT (23:18)
[2023-01-11] VITALS (18 sets, daily range): BP systolic 117–137; BP diastolic 56–70; PULSE 68–89; RESP 17–20; TEMP 36.4–37; O2SAT 91–100
--- NOTE | 2023-01-11 07:00 | CA_ITS ---
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 The calculated ejection fraction is 59% by biplane method. - There is mild to moderate aortic valve stenosis. Findings Procedure Information Contrast agent, definity, is being given per protocol without apparent complications. Left Ventricle Normal left ventricular cavity size. The left ventricular systolic function is normal. The calculated ejection fraction is 59% by biplane method. There is no evidence of regional wall motion abnormalities. Diastolic function is indeterminate on the basis of available data. Right Ventricle Normal right ventricular cavity size and systolic function. Atria The left atrium is moderately dilated. The right atrium is normal in size. Aortic Valve The aortic valve was not well visualized. There is mild to moderate aortic valve stenosis. There is no aortic valve regurgitation. Mitral Valve There is mild mitral annular calcification. There is no mitral valve regurgitation. There is no mitral valve stenosis. Pulmonic Valve The pulmonic valve was not well visualized. Tricuspid Valve Normal tricuspid valve structure. There is trace tricuspid valve regurgitation. There is no evidence of pulmonary hypertension. Great Vessels The aorta was not well visualized. Venous The inferior vena cava is normal in size and collapses less than 50% with inspiration. Pericardium/Pleural There is a trivial pericardial effusion. Prior Study Comparison No significant change compared to prior study. Measurements 2D Linear Measurements LVOT Diam: 2.00 3.0+(-)1.3 cm 2D Systolic Function EF 4C: 60.30 >55% EF 2C: 61.10 >55% EF BiP: 58.60 >55% Mitral Valve MV Pk E: 0.90 MV Decel Time: 165.00 E'Lateral: 9.57 E'Medial: 8.38 E/E' Med: 10.70 E/E' Lat: 9.40 PHT: 48.00 MVA PHT: 4.58 Decel [place]: 5.45 Aortic Valve AoV Pk Ron: 2.04 AoV Mn Ron: 1.23 AoV VTI: 0.33 AoV Pk Grad: 17.00 Aov Mn Grad: 7.00 KANDACE Cont.VTI: 1.34 LVOT LVOT Pk Ron: 0.73 LVOT Mn Ron: 0.49 LVOT VTI: 0.14 LVOT Pk Grad: 2.00 LVOT Mn Grad: 1.00 LVOT Diam: 2.00 LVOT Area: 3.14 Diastolic Function MV Pk E: 0.90 E'Medial: 8.38 E/E' Med: 10.70 E' Laterial: 9.57 E/E' Lat: 9.40 Right Ventricle TAPSE (mm): 24.00 TVS' Ron: 10.00 Tricuspid Valve TR Pk Ron: 1.87 TR Pk Grad: 14.00 Updated in Other Vendor System with Status of Final Ramin Marino MD electronically signed on 01/11/2023 3:41:58 PM with status of Final
[2023-01-11 07:45] LABS: Anion Gap 18 (12-20); Blood Urea Nitrogen 36 mg/dL (9-16); Carbon Dioxide 29 mmol/L (22-29); Chloride 97 mmol/L (96-108); Creatinine Clr Calc Pharmacy 38.8; Estimated Glomerular Filt Rate 45; Glucose Random 205 mg/dL (60-115); Potassium 3.9 mmol/L (3.3-5.1); Sodium 140 mmol/L (135-145)
[2023-01-11] MEDS: Albuterol/Iprat 2.5/0.5MG 3 ML AMPUL.NEB INHALE ×4 (08:18→18:47)
--- NOTE | 2023-01-11 09:33 | P.CONCA_ITS ---
History of Present Illness History of Present Illness Date of Service: 01/11/23 Chief complaint: Dyspnea Narrative: This is a cardiology consultation regarding shortness of breath. Difficult to get a good history from patient as he is wearing noninvasive ventilation mask and not able to really speak much. Hence chart was reviewed in detail. It seems that he has a history of COPD not on home oxygen, hypertension, dyslipidemia, chronic kidney disease and he was initially sent several days ago to the emergency room for evaluation of dyspnea hypoxia. He was apparently hypoxemic in the 80s with some cough and wheezing and that was reason for admission. He is primarily thought to have COPD exacerbation but there is a concern if there is cardiac etiology and hence we were asked to see him. Review of Systems 2 Review of Systems: Unable to obtain review of system is he is not able to give much information. [facility] Past Medical History Medical History (Updated 01/11/23 @ 09:40 by Ramin Marino MD) Atelectasis of left lung BPH (benign prostatic hyperplasia) Frequent falls On beta priscilla at home Overweight (BMI 25.0-29.9) Depression Urothelial carcinoma of bladder Vitamin B12 deficiency Vitamin D deficiency GERD without esophagitis Anemia Primary osteoarthritis, right shoulder Osteoarthritis of both knees Chronic kidney disease, stage III (moderate) Impaired fasting glucose Elevated liver enzymes Subdural hematoma Benign essential hypertension Pure hypercholesterolemia Coronary artery disease Family History Family History Father CVD (cardiovascular disease) Mother Hypertension Surgical History Surgical History History of tonsillectomy History of transurethral resection of bladder tumor (TURBT) History of hip surgery History of transurethral resection of prostate History of shoulder surgery Social History Social History Household Members: Other Housing: Intermediate Housing Other:: [facility] Are you a primary long term care pharmacist to a significant other at home: No Do you presently have visiting nurse or other home services: No Alcohol intake: never Patient Tobacco Use Status: Former Tobacco user Smoked in Last 30 Days: No Use of substances other than those prescribed or required for medical reasons: No Currently Displaying Signs/Symptoms of Drug Intoxication Withdrawal: No Have you been hit, kicked, punched, or otherwise hurt by someone within the past year? If so, by whom?: No Do you feel safe in your current relationship?: Yes Is there a partner from a previous relationship who is making you feel unsafe now?: No Are you made to feel afraid or neglected: No Advance Directives: Yes Advance Directives Information Provided: No Advance Directives on File: Yes Advance Directives Date on File: 06/29/20 Do you have thoughts of harming others: None Do you have a plan to hurt others: No Plan Recently lost weight without trying: No Eating poorly because of decreased appetite: No Poor oral hygiene: No service: Yes Meds Allergies Allergy/AdvReac Type Severity Reaction Status Date / Time lisinopril Allergy Unknown Verified 09/10/22 11:38 Active Medications: Current Medications Acetaminophen (Acetaminophen 325 Mg Tablet) 650 mg PO Q6H PRN PRN Reason: Pain, Mild (Pain Scale 1-3) Albuterol/Ipratropium (Albuterol/Iprat 2.5/0.5mg 3 Ml Ampul.Neb) 3 ml INHALE RQ4H WHILE AWAKE [facility] Last Admin: 01/11/23 08:18 Dose: 3 ml Albuterol/Ipratropium (Albuterol/Iprat 2.5/0.5mg 3 Ml Ampul.Neb) 3 ml INHALE Q4H PRN PRN Reason: Wheezing Last Admin: 01/08/23 05:25 Dose: 3 ml Amlodipine Besylate (Amlodipine Besylate 10 Mg Tablet) 10 mg PO DAILY [facility]; Protocol Last Admin: 01/10/23 12:03 Dose: 10 mg Atorvastatin Calcium (Atorvastatin Calcium 80 Mg Tablet) 80 mg PO BEDTIME IDANIA Last Admin: 01/10/23 20:40 Dose: 80 mg Cyanocobalamin (Cyanocobalamin (Vitamin B-12) 1,000 Mcg Tablet) 2,000 mcg PO DAILY [facility] Last Admin: 01/10/23 12:02 Dose: 2,000 mcg Ezetimibe (Ezetimibe 10 Mg Tablet) 10 mg PO DAILY [facility] Last Admin: 01/10/23 12:02 Dose: 10 mg Enoxaparin Sodium (Enoxaparin Sodium 40 Mg/0.4 Ml Syringe) 40 mg SUBCUT Q24H IDANIA Last Admin: 01/10/23 23:18 Dose: 40 mg Escitalopram Oxalate (Escitalopram Oxalate 5 Mg Tablet) 5 mg PO DAILY [facility] Last Admin: 01/10/23 12:02 Dose: 5 mg Folic Acid (Folic Acid 1 Mg Tablet) 1 mg PO DAILY [facility] Last Admin: 01/10/23 12:03 Dose: 1 mg Guaifenesin (Guaifenesin 100 Mg/5 Ml Liquid) 10 ml PO Q4H PRN PRN Reason: Cough Last Admin: 01/08/23 23:34 Dose: 10 ml Azithromycin 500 mg/ Sodium (Chloride) 250 mls @ 125 mls/hr IV Q24H IDAN[facility] Last Infusion: 01/11/23 01:21 Dose: Infused Ceftriaxone Sodium 1 gm/ (Sodium Chloride) 50 mls @ 100 mls/hr IV Q24H [facility] Last Admin: 01/10/23 12:06 Dose: 1 mls/hr Latanoprost (Latanoprost 0.005 % Ophth Lolita 2.5 Ml Drops) 0 drop EYE-BOTH BEDTIME IDANIA Last Admin: 01/10/23 20:40 Dose: 1 drop Lorazepam (Lorazepam 0.5 Mg Tablet) 0.25 mg PO Q6H PRN PRN Reason: anxiety/restlessness Last Admin: 01/09/23 12:45 Dose: 0.25 mg Magnesium Oxide (Magnesium Oxide 400 Mg Tablet) 400 mg PO DAILY [facility] Last Admin: 01/10/23 12:03 Dose: 400 mg Melatonin (Melatonin 3 Mg Tablet) 6 mg PO BEDTIME PRN PRN Reason: Insomnia Last Admin: 01/09/23 00:46 Dose: 6 mg Methylprednisolone Sodium Succinate (Methylprednisolone Sod Succ 40 Mg/Ml Vial) 20 mg IVPUSH Q12H IDANIA Last Admin: 01/10/23 23:19 Dose: 20 mg Metoprolol Succinate (Metoprolol Succinate Er 50 Mg Tab.Er.24h) 50 mg PO DAILY [facility]; Protocol Last Admin: 01/10/23 12:10 Dose: 50 mg Mirtazapine (Mirtazapine 15 Mg Tablet) 7.5 mg PO BEDTIME IDANIA Last Admin: 01/10/23 20:39 Dose: 7.5 mg Multivitamins/Vitamin C (Multivitamin Tablet) 1 tab PO DAILY [facility] Last Admin: 01/10/23 12:03 Dose: 1 tab Ondansetron HCl (Ondansetron Hcl 4 Mg/2 Ml Vial) 4 mg IVPUSH Q8H PRN PRN Reason: Nausea and Vomiting Potassium Chloride (Potassium Chloride Er 10 Meq Tablet.Er) 10 meq PO DAILY [facility] Last Admin: 01/10/23 12:03 Dose: 10 meq Sodium Chloride (0.9 % Sodium Chloride Flush 3 Ml Syringe) 3 ml IVFLUSH QSHIFT [facility] Last Admin: 01/11/23 00:04 Dose: Not Given Home Medications Medication Instructions Recorded Confirmed Last Taken Type atorvastatin 80 mg tablet 80 mg PO BEDTIME 03/25/20 01/03/23 01/03/23 History ezetimibe 10 mg tablet 10 mg PO DAILY 03/25/20 01/03/23 01/03/23 History cholecalciferol (vitamin D3) 125 250 mcg PO DAILY 07/03/20 01/03/23 01/03/23 History mcg (5,000 unit) tablet (Vitamin D3) latanoprost 0.005 % eye drops 1 drp ophthalmic (eye) BEDTIME 07/03/20 01/03/23 01/03/23 History vitamins A,C,R-mxmm-trdell 2,148 1 tab PO BID 07/03/20 01/03/23 01/03/23 History mcg-113 mg-45 mg-17.4 mg tablet (PreserVision AREDS) acetaminophen 325 mg tablet 650 mg PO Q6H PRN pain/ fever 08/06/22 01/03/23 01/03/23 History albuterol sulfate 90 mcg/actuation 2 puff inhalation Q4H PRN Wheezing 08/06/22 01/04/23 01/03/23 History aerosol inhaler (ProAir HFA) amlodipine 10 mg tablet 10 mg PO DAILY 08/06/22 01/03/23 01/03/23 History cyanocobalamin (vitamin B-12) 2,000 mcg PO DAILY 08/06/22 01/03/23 01/03/23 History 1,000 mcg tablet escitalopram oxalate 5 mg tablet 5 mg PO DAILY 08/06/22 01/03/23 01/03/23 History hydrochlorothiazide 25 mg tablet 25 mg PO DAILY 08/06/22 01/03/23 01/03/23 History magnesium oxide 400 mg PO DAILY 08/06/22 01/03/23 01/03/23 History metoprolol succinate 50 mg 50 mg PO DAILY 08/06/22 01/03/23 01/03/23 History tablet,extended release 24 hr mirtazapine 15 mg tablet 7.5 mg PO BEDTIME 08/06/22 01/04/23 01/03/23 History potassium chloride 10 mEq 10 meq PO DAILY 08/06/22 01/03/23 01/03/23 History tablet,extended release (K-Tab) folic acid 1 mg tablet 1 mg PO DAILY 09/10/22 01/03/23 01/03/23 History prednisone 20 mg PO DAILY 01/03/23 01/03/23 01/03/23 History amoxicillin 875 mg-potassium 1 tab PO BID 01/04/23 01/04/23 Unknown History clavulanate 125 mg tablet guaifenesin 100 mg/5 mL oral liquid 200 mg PO Q4H PRN Cough 01/04/23 01/04/23 Unknown History Physical Exam 2 Vital Signs: Vital Signs: Last Vital Signs Temp 97.6 F 01/11/23 07:55 Pulse 68 01/11/23 08:19 Resp 18 01/11/23 08:23 BP 117/70 01/11/23 07:55 Pulse Ox 99 01/11/23 07:55 O2 Del Method CPAP 01/11/23 07:55 O2 Flow Rate 8 01/10/23 12:05 FiO2 90 01/11/23 07:55 Oxygen Flow Rate 4 01/03/23 21:03 BMI result Body Mass Index 32.5 Const: General: ill appearing and tired appearing O rientation/consciousness: patient oriented x3 HEENT: Other: Unremarkable Head: Yes normal to inspection Neck: Neck: Yes normal visual inspection Chest: Chest palpation & inspection: normal inspection of the chest Resp: Auscultation: rhonchi and diminished lung sounds Cardio: Palpation: normal PMI Heart sounds: S1 normal heart sound present, S2 normal heart sound present, no gallops, no murmurs and no rubs GI: Palpation (GI): Soft to palpation Back/Spine/Pelvis: Other: unremarkable Skin: General skin exam: no rashes or lesions noted Neuro: General: patient oriented x3 Extrem: Other: Trace edema bilaterally General: Yes normal to inspection Psych: Mental Status: mental status grossly normal Objective Labs and Meds 01/08/23 08:04 01/11/23 06:41 Lab results: Laboratory Results - last 24 hr 01/10/23 01/11/23 16:58 06:41 O2 Saturation 93.0 ABG pH at Pt Temp 7.54 H ABG pCO2 at Pt Temp 46 H ABG pO2 at Pt Temp 68 L ABG HCO3 40 H ABG Base Excess (Actual) 15.5 Sodium 140 Potassium 3.9 Chloride 97 Carbon Dioxide 29 Anion Gap 18 BUN 36 H Creatinine 1.49 H Estim Creat Clear Calc 38.8 Estimated GFR 45 Random Glucose 205 H Calcium 9.0 ECG Interpretation: EKG with sinus rhythm at 82/Min; occasional PVCs; nonspecific ST-T changes. Imaging Radiologist's impression: Impressions Chest X-Ray 01/10/23 14:40 IMPRESSION: The study is limited due to low lung volumes, elevation of the left hemidiaphragm, technique and body habitus. Stable enlarged cardiac silhouette. Elevation of the left hemidiaphragm associated with the left lung base opacity possibly atelectasis and/or infiltrate. Pleural fluid also a consideration. There appears to be mild atelectatic change at the right lung base. Assessment and Plan (1) Acute respiratory failure: Qualifiers: Respiratory failure complication: unspecified whether with hypoxia or hypercapnia Qualified Code(s): J96.00 - Acute respiratory failure, unspecified whether with hypoxia or hypercapnia Status: Acute (2) COPD exacerbation: Status: Acute (3) Hypoxemia: Status: Acute (4) Non-rheumatic aortic stenosis: Status: Resolved Plan Clinically, very difficult to assess how much of it is cardiac although he does not seem profoundly volume overloaded. Cardiac BNP is on the higher side at 816 and we do not have a prior baseline. Marginal renal function. It could be multifactorial etiology for his respiratory failure but difficult to delineate how much is respiratory too much is cardiac. There is history of aortic stenosis on the last echocardiogram and if that got worse could explain part of his symptoms. May try additional diuretics today. Discussed with Dr. Schilling. Time Spent With Patient Time: Total time managing care of this patient today ____ minutes. Procedures Date of Service Date of Service: 01/11/23
[2023-01-11] MEDS: Magnesium Oxide 400 MG TABLET PO (10:14)
[2023-01-11] MEDS: Metoprolol Succinate ER 50 MG TAB.ER.24H PO (10:14)
[2023-01-11] MEDS: amLODIPine Besylate 10 MG TABLET PO (10:15)
[2023-01-11] MEDS: Potassium Chloride ER 10 MEQ TABLET.ER PO (10:15)
[2023-01-11] MEDS: Folic Acid 1 MG TABLET PO (10:15)
[2023-01-11] MEDS: Multivitamin TABLET 1 TAB PO (10:15)
[2023-01-11] MEDS: Ezetimibe 10 MG TABLET PO (10:15)
[2023-01-11] MEDS: Cyanocobalamin (Vitamin B-12) 1,000 MCG TABLET 2000 MCG PO (10:16)
[2023-01-11] MEDS: Escitalopram Oxalate 5 MG TABLET PO (10:16)
[2023-01-11] MEDS: methylPREDNISolone Sod Succ 40 MG/ML VIAL 20 MG IVPUSH (10:21)
[2023-01-11] MEDS: Mirtazapine 15 MG TABLET 7.5 MG PO (21:43)
[2023-01-11] MEDS: Atorvastatin Calcium 80 MG TABLET PO (21:43)
[2023-01-12] VITALS (14 sets, daily range): BP systolic 112–134; BP diastolic 57–69; PULSE 68–87; RESP 18–23; TEMP 36.3–36.4; O2SAT 87–98
[2023-01-12] MEDS: Enoxaparin Sodium 40 MG/0.4 ML SYRINGE SUBCUT ×2 (00:18→23:55)
[2023-01-12] MEDS: methylPREDNISolone Sod Succ 40 MG/ML VIAL 20 MG IVPUSH ×3 (00:22→23:55)
[2023-01-12] MEDS: Albuterol/Iprat 2.5/0.5MG 3 ML AMPUL.NEB INHALE ×4 (07:31→18:51)
--- NOTE | 2023-01-12 10:29 | MHC.CM.PN ---
Per ROUNDS discussion, Patient is requiring Bipap and is not yet medically cleared for dc. Returning to LT @ [facility] is the goal and CM will continue to follow.
[2023-01-12 11:25] LABS: Hematocrit 36.6 % (42.0-52.0); Hemoglobin 11.8 g/dl (14.0-18.0); Mean Corpuscular HGB Conc 32.2 g/dl (31.0-36.0); Mean Corpuscular Hemoglobin 31.1 pg (27.0-33.0); Mean Corpuscular Volume 96.3 fL (80.0-98.0); Mean Platelet Volume 10.2 fL (9.4-12.4); Platelet Count 206 X10*3/uL (160-400); Red Cell Distribution Width 13.2 % (11.0-16.0); White Blood Count 20.7 X10*3/uL (4.8-10.8)
--- NOTE | 2023-01-12 11:32 | P.PNIM_ITS ---
Subjective Subjective Date of Service: 01/13/23 Interval History: Patient continues to do poorly, relying on BiPAP all night to maintain oxgygen, has periods of agiations, confusion Review of Systems alert, no apparent resp distress Physical Exam 2 Vital Signs: Vital Signs: Last Vital Signs Temp 97.6 F 01/12/23 07:10 Pulse 87 01/12/23 11:20 Resp 18 01/12/23 11:21 BP 118/66 01/12/23 07:10 Pulse Ox 87 L 01/12/23 07:10 O2 Del Method BiPAP 01/12/23 07:10 O2 Flow Rate 40 01/11/23 23:49 FiO2 60 01/12/23 03:36 Oxygen Flow Rate 4 01/03/23 21:03 BMI result Body Mass Index 32.5 Const: Other: General: alert, on bipap, no aparent distress Resp: sandhya rhonchi, no accessory muslce use CVS: S1,S2,RRR GI: +BS, NT, no distention, trace edema Skin: No rash Neuro: motor grossly intact Psych: appropriate affect Objective Data Active Medications Acetaminophen (Acetaminophen 325 Mg Tablet) 650 mg PO Q6H PRN PRN Reason: Pain, Mild (Pain Scale 1-3) Albuterol/Ipratropium (Albuterol/Iprat 2.5/0.5mg 3 Ml Ampul.Neb) 3 ml INHALE RQ4H WHILE AWAKE [facility] Last Admin: 01/12/23 11:20 Dose: 3 ml Documented By: MIGUEL Albuterol/Ipratropium (Albuterol/Iprat 2.5/0.5mg 3 Ml Ampul.Neb) 3 ml INHALE Q4H PRN PRN Reason: Wheezing Last Admin: 01/08/23 05:25 Dose: 3 ml Documented By: KYM Amlodipine Besylate (Amlodipine Besylate 10 Mg Tablet) 10 mg PO DAILY [facility]; Protocol Last Admin: 01/11/23 10:15 Dose: 10 mg Documented By: CALVIN Atorvastatin Calcium (Atorvastatin Calcium 80 Mg Tablet) 80 mg PO BEDTIME [facility] Last Admin: 01/11/23 21:43 Dose: 80 mg Documented By: ALLA Cyanocobalamin (Cyanocobalamin (Vitamin B-12) 1,000 Mcg Tablet) 2,000 mcg PO DAILY [facility] Last Admin: 01/11/23 10:16 Dose: 2,000 mcg Documented By: CALVIN Ezetimibe (Ezetimibe 10 Mg Tablet) 10 mg PO DAILY [facility] Last Admin: 01/11/23 10:15 Dose: 10 mg Documented By: CALVIN Enoxaparin Sodium (Enoxaparin Sodium 40 Mg/0.4 Ml Syringe) 40 mg SUBCUT Q24H [facility] Last Admin: 01/12/23 00:18 Dose: 40 mg Documented By: ALLA Escitalopram Oxalate (Escitalopram Oxalate 5 Mg Tablet) 5 mg PO DAILY [facility] Last Admin: 01/11/23 10:16 Dose: 5 mg Documented By: CALVIN Folic Acid (Folic Acid 1 Mg Tablet) 1 mg PO DAILY [facility] Last Admin: 01/11/23 10:15 Dose: 1 mg Documented By: CALVIN Guaifenesin (Guaifenesin 100 Mg/5 Ml Liquid) 10 ml PO Q4H PRN PRN Reason: Cough Last Admin: 01/08/23 23:34 Dose: 10 ml Documented By: NGUYỄN Azithromycin 500 mg/ Sodium (Chloride) 250 mls @ 125 mls/hr IV Q24H [facility] Last Infusion: 01/12/23 02:30 Dose: Infused Documented By: ALLA Ceftriaxone Sodium 1 gm/ (Sodium Chloride) 50 mls @ 100 mls/hr IV Q24H [facility] Last Infusion: 01/11/23 11:36 Dose: Infused Documented By: ANAY Latanoprost (Latanoprost 0.005 % Ophth Lolita 2.5 Ml Drops) 0 drop EYE-BOTH BEDTIME [facility] Last Admin: 01/11/23 23:56 Dose: Not Given Documented By: ALLA Non-Admin Reason: Med Not Available Lorazepam (Lorazepam 0.5 Mg Tablet) 0.25 mg PO Q6H PRN PRN Reason: anxiety/restlessness Last Admin: 01/09/23 12:45 Dose: 0.25 mg Documented By: CARLOS Magnesium Oxide (Magnesium Oxide 400 Mg Tablet) 400 mg PO DAILY [facility] Last Admin: 01/11/23 10:14 Dose: 400 mg Documented By: CALVIN Melatonin (Melatonin 3 Mg Tablet) 6 mg PO BEDTIME PRN PRN Reason: Insomnia Last Admin: 01/09/23 00:46 Dose: 6 mg Documented By: NGUYỄN Methylprednisolone Sodium Succinate (Methylprednisolone Sod Succ 40 Mg/Ml Vial) 20 mg IVPUSH Q12H [facility] Last Admin: 01/12/23 00:22 Dose: 20 mg Documented By: ALLA Metoprolol Succinate (Metoprolol Succinate Er 50 Mg Tab.Er.24h) 50 mg PO DAILY [facility]; Protocol Last Admin: 01/11/23 10:14 Dose: 50 mg Documented By: CALVIN Mirtazapine (Mirtazapine 15 Mg Tablet) 7.5 mg PO BEDTIME [facility] Last Admin: 01/11/23 21:43 Dose: 7.5 mg Documented By: ALLA Multivitamins/Vitamin C (Multivitamin Tablet) 1 tab PO DAILY [facility] Last Admin: 01/11/23 10:15 Dose: 1 tab Documented By: CALVIN Ondansetron HCl (Ondansetron Hcl 4 Mg/2 Ml Vial) 4 mg IVPUSH Q8H PRN PRN Reason: Nausea and Vomiting Potassium Chloride (Potassium Chloride Er 10 Meq Tablet.Er) 10 meq PO DAILY [facility] Last Admin: 01/11/23 10:15 Dose: 10 meq Documented By: CALVIN Sodium Chloride (0.9 % Sodium Chloride Flush 3 Ml Syringe) 3 ml IVFLUSH QSHIFT [facility] Last Admin: 01/12/23 00:23 Dose: 3 ml Documented By: ALLA Labs 01/12/23 11:12 01/12/23 11:12 Labs: Laboratory Results - last 24 hr 01/12/23 11:12 MCV 96.3 MCH 31.1 MCHC 32.2 RDW 13.2 Plt Count 206 MPV 10.2 Absolute Nucleated RBC 0.000 Nucleated RBC % (auto) 0.0 Assessment and Plan (1) COPD exacerbation: Status: Acute (2) UTI (urinary tract infection): Status: Acute Plan This is a 87-year-old male with pertinent history of COPD not on home oxygen, essential hypertension, mixed hyperlipidemia, CKD stage 3, mood disorder who was sent to the emergency department for evaluation of dyspnea and hypoxemia. Acute hypoxemic respiratory failure initially treated for pneumonia which has been apropriately treated with IV, COPD exacerbation was treated with IV steroid and bronchodilators by Neb. Patient's condition has worsened overtime with increasing O2 requirement and now BiPAP to maintain O2, CXR has ? edema, infiltrate, atelectasis or effusion and BNP has been high so has been treated with IV Lasix. He likely has multifactorial acute hypoxic respiratory failure:copd, pna, heart failure. -Continue IV Abx to cover PNA, CT chest today -IV steroid and bronchodilators for copd -continue IV Lasix for heart failure, echo pending -cardiology and pulmonology consult -BiPAP to maintain O2 -goals of care conversation with family UTI: Ceftriaxone started on 01/04/2023, cultre= providencia, sensitive to ceftriaxone Lactic acidosis: Due to hypoxemia, not sepsis. OLEG on CKD: ? cardiorenal syndrome, Creatine is better Essential hypertension: Continue home antihypertensives. Mixed hyperlipidemia: On statin and ezetimibe. Mood disorder: Continue home mood stabilizers. DNR/DNI Cardiac diet Nee for inpatient: management of copd with hypoxia, acute need of O2, UTI need IV Abx Discussed with daughters at bedside Time Spent With Patient Time: Total time managing care of this patient today ____ minutes. Quality Stroke Does the patient have a stroke diagnosis?: No VTE Prior VTE?: No VTE Risk Level:: Medical - moderate - high VTE Device Contraindication: Treatment Not Indicated VTE Drug Contraindication: N/A - Med Ordered
[2023-01-12 11:35] LABS: Anion Gap 17 (12-20); Blood Urea Nitrogen 40 mg/dL (9-16); Calcium 9.3 mg/dL (8.4-10.2); Carbon Dioxide 31 mmol/L (22-29); Chloride 99 mmol/L (96-108); Creatinine Clr Calc Pharmacy 37.3; Estimated Glomerular Filt Rate 43; Glucose Random 288 mg/dL (60-115); Potassium 4.3 mmol/L (3.3-5.1); Sodium 143 mmol/L (135-145)
[2023-01-12] MEDS: Cyanocobalamin (Vitamin B-12) 1,000 MCG TABLET 2000 MCG PO (11:55)
[2023-01-12] MEDS: amLODIPine Besylate 10 MG TABLET PO (11:55)
[2023-01-12] MEDS: Folic Acid 1 MG TABLET PO (11:55)
[2023-01-12] MEDS: Escitalopram Oxalate 5 MG TABLET PO (11:55)
[2023-01-12] MEDS: Metoprolol Succinate ER 50 MG TAB.ER.24H PO (11:55)
[2023-01-12] MEDS: Multivitamin TABLET 1 TAB PO (11:56)
[2023-01-12] MEDS: Magnesium Oxide 400 MG TABLET PO (11:56)
[2023-01-12] MEDS: Ezetimibe 10 MG TABLET PO (11:56)
[2023-01-12] MEDS: Potassium Chloride ER 10 MEQ TABLET.ER PO (12:05)
[2023-01-12] MEDS: Mirtazapine 15 MG TABLET 7.5 MG PO (21:14)
[2023-01-12] MEDS: Atorvastatin Calcium 80 MG TABLET PO (21:14)
[2023-01-13] VITALS (15 sets, daily range): BP systolic 127–134; BP diastolic 61–85; PULSE 71–94; RESP 17–20; TEMP 36.2–36.9; O2SAT 89–98
--- NOTE | 2023-01-13 | ECG_ITS ---
Test Reason : afib Blood Pressure : / mmHG Vent. Rate : 069 BPM Atrial Rate : 000 BPM P-R Int : 000 ms QRS Dur : 082 ms QT Int : 380 ms P-R-T Axes : 000 000 -13 degrees QTc Int : 407 ms Poor data quality, interpretation may be adversely affected Atrial fibrillation Cannot rule out Inferior infarct , age undetermined Abnormal ECG When compared with ECG of 03-JAN-2023 21:15, Atrial fibrillation has replaced Sinus rhythm Minimal criteria for Inferior infarct are now Present Referred By: Ty Vega Electronically Signed By:
[2023-01-13] MEDS: Albuterol/Iprat 2.5/0.5MG 3 ML AMPUL.NEB INHALE ×4 (07:35→19:36)
[2023-01-13] MEDS: Ezetimibe 10 MG TABLET PO (07:46)
[2023-01-13] MEDS: Multivitamin TABLET 1 TAB PO (07:46)
[2023-01-13] MEDS: Escitalopram Oxalate 5 MG TABLET PO (07:46)
[2023-01-13] MEDS: Potassium Chloride ER 10 MEQ TABLET.ER PO (07:46)
[2023-01-13] MEDS: Cyanocobalamin (Vitamin B-12) 1,000 MCG TABLET 2000 MCG PO (07:46)
[2023-01-13] MEDS: Magnesium Oxide 400 MG TABLET PO (07:46)
[2023-01-13] MEDS: Metoprolol Succinate ER 50 MG TAB.ER.24H PO (07:46)
[2023-01-13] MEDS: amLODIPine Besylate 10 MG TABLET PO (07:47)
[2023-01-13] MEDS: Folic Acid 1 MG TABLET PO (07:47)
[2023-01-13 10:23] LABS: Hematocrit 37.2 % (42.0-52.0); Hemoglobin 12.3 g/dl (14.0-18.0); Mean Corpuscular HGB Conc 33.1 g/dl (31.0-36.0); Mean Corpuscular Hemoglobin 31.6 pg (27.0-33.0); Mean Corpuscular Volume 95.6 fL (80.0-98.0); Mean Platelet Volume 10.4 fL (9.4-12.4); Platelet Count 194 X10*3/uL (160-400); Red Blood Count 3.89 X10*6/uL (4.60-5.80); Red Cell Distribution Width 13.3 % (11.0-16.0)
[2023-01-13 10:40] LABS: Anion Gap 14 (12-20); Blood Urea Nitrogen 38 mg/dL (9-16); Calcium 9.3 mg/dL (8.4-10.2); Carbon Dioxide 31 mmol/L (22-29); Chloride 99 mmol/L (96-108); Creatinine Clr Calc Pharmacy 44.5; Estimated Glomerular Filt Rate 52; Glucose Random 193 mg/dL (60-115); Potassium 4.2 mmol/L (3.3-5.1); Sodium 140 mmol/L (135-145)
--- NOTE | 2023-01-13 10:43 | HO.PM.IMPN ---
Subjective Subjective Date of Service: 01/13/23 Interval History: Patient is more awake, alert and more coherent today; also his oxygenation is better, he has been transition from high flow to now oxymizer Physical Exam Vital Signs: Vital Signs: Last Vital Signs Temp 97.5 F 01/13/23 07:39 Pulse 78 01/13/23 07:46 Resp 20 01/13/23 08:34 BP 128/85 01/13/23 07:39 Pulse Ox 92 01/13/23 07:39 O2 Del Method High Flow Nasal C annula 01/13/23 07:39 O2 Flow Rate 40 01/13/23 07:39 FiO2 55 01/13/23 07:39 Oxygen Flow Rate 4 01/03/23 21:03 BMI result Body Mass Index 32.5 Const: Other: General: on high flow, alert to self and place, eating Resp: sandhya rhonchi, no accessory muslce use CVS: S1,S2,RRR GI: +BS, NT, no distention, trace edema Skin: No rash Neuro: motor grossly intact Psych: appropriate affect Objective Data Active Medications Acetaminophen (Acetaminophen 325 Mg Tablet) 650 mg PO Q6H PRN PRN Reason: Pain, Mild (Pain Scale 1-3) Albuterol/Ipratropium (Albuterol/Iprat 2.5/0.5mg 3 Ml Ampul.Neb) 3 ml INHALE RQ4H WHILE AWAKE [facility] Last Admin: 01/13/23 07:35 Dose: 3 ml Documented By: HILARY Albuterol/Ipratropium (Albuterol/Iprat 2.5/0.5mg 3 Ml Ampul.Neb) 3 ml INHALE Q4H PRN PRN Reason: Wheezing Last Admin: 01/08/23 05:25 Dose: 3 ml Documented By: KYM Amlodipine Besylate (Amlodipine Besylate 10 Mg Tablet) 10 mg PO DAILY [facility]; Protocol Last Admin: 01/13/23 07:47 Dose: 10 mg Documented By: ASHLEY Atorvastatin Calcium (Atorvastatin Calcium 80 Mg Tablet) 80 mg PO BEDTIME [facility] Last Admin: 01/12/23 21:14 Dose: 80 mg Documented By: RENA Cyanocobalamin (Cyanocobalamin (Vitamin B-12) 1,000 Mcg Tablet) 2,000 mcg PO DAILY [facility] Last Admin: 01/13/23 07:46 Dose: 2,000 mcg Documented By: ASHLEY Ezetimibe (Ezetimibe 10 Mg Tablet) 10 mg PO DAILY [facility] Last Admin: 01/13/23 07:46 Dose: 10 mg Documented By: ASHLEY Enoxaparin Sodium (Enoxaparin Sodium 40 Mg/0.4 Ml Syringe) 40 mg SUBCUT Q24H [facility] Last Admin: 01/12/23 23:55 Dose: 40 mg Documented By: RENA Escitalopram Oxalate (Escitalopram Oxalate 5 Mg Tablet) 5 mg PO DAILY [facility] Last Admin: 01/13/23 07:46 Dose: 5 mg Documented By: ASHLEY Folic Acid (Folic Acid 1 Mg Tablet) 1 mg PO DAILY [facility] Last Admin: 01/13/23 07:47 Dose: 1 mg Documented By: ASHLEY Guaifenesin (Guaifenesin 100 Mg/5 Ml Liquid) 10 ml PO Q4H PRN PRN Reason: Cough Last Admin: 01/08/23 23:34 Dose: 10 ml Documented By: NGUYỄN Azithromycin 500 mg/ Sodium (Chloride) 250 mls @ 125 mls/hr IV Q24H [facility] Last Infusion: 01/13/23 02:06 Dose: Infused Documented By: RENA Ceftriaxone Sodium 1 gm/ (Sodium Chloride) 50 mls @ 100 mls/hr IV Q24H [facility] Last Infusion: 01/13/23 08:23 Dose: Infused Documented By: ASHLEY Latanoprost (Latanoprost 0.005 % Ophth Lolita 2.5 Ml Drops) 0 drop EYE-BOTH BEDTIME [facility] Last Admin: 01/12/23 21:15 Dose: 1 drop Documented By: RENA Lorazepam (Lorazepam 0.5 Mg Tablet) 0.25 mg PO Q6H PRN PRN Reason: anxiety/restlessness Last Admin: 01/09/23 12:45 Dose: 0.25 mg Documented By: CARLOS Magnesium Oxide (Magnesium Oxide 400 Mg Tablet) 400 mg PO DAILY [facility] Last Admin: 01/13/23 07:46 Dose: 400 mg Documented By: ASHLEY Melatonin (Melatonin 3 Mg Tablet) 6 mg PO BEDTIME PRN PRN Reason: Insomnia Last Admin: 01/09/23 00:46 Dose: 6 mg Documented By: NGUYỄN Methylprednisolone Sodium Succinate (Methylprednisolone Sod Succ 40 Mg/Ml Vial) 20 mg IVPUSH Q12H [facility] Last Admin: 01/12/23 23:55 Dose: 20 mg Documented By: RENA Metoprolol Succinate (Metoprolol Succinate Er 50 Mg Tab.Er.24h) 50 mg PO DAILY [facility]; Protocol Last Admin: 01/13/23 07:46 Dose: 50 mg Documented By: ASHLEY Mirtazapine (Mirtazapine 15 Mg Tablet) 7.5 mg PO BEDTIME [facility] Last Admin: 01/12/23 21:14 Dose: 7.5 mg Documented By: RENA Multivitamins/Vitamin C (Multivitamin Tablet) 1 tab PO DAILY [facility] Last Admin: 01/13/23 07:46 Dose: 1 tab Documented By: ASHLEY Ondansetron HCl (Ondansetron Hcl 4 Mg/2 Ml Vial) 4 mg IVPUSH Q8H PRN PRN Reason: Nausea and Vomiting Potassium Chloride (Potassium Chloride Er 10 Meq Tablet.Er) 10 meq PO DAILY [facility] Last Admin: 01/13/23 07:46 Dose: 10 meq Documented By: ASHLEY Sodium Chloride (0.9 % Sodium Chloride Flush 3 Ml Syringe) 3 ml IVFLUSH QSHIFT [facility] Last Admin: 01/13/23 07:46 Dose: 3 ml Documented By: ASHLEY Labs 01/13/23 09:53 01/13/23 09:53 Labs: Laboratory Results - last 24 hr 01/12/23 01/13/23 11:12 09:53 MCV 96.3 95.6 MCH 31.1 31.6 MCHC 32.2 33.1 RDW 13.2 13.3 Plt Count 206 194 MPV 10.2 10.4 Absolute Nucleated RBC 0.000 0.000 Nucleated RBC % (auto) 0.0 0.0 Anion Gap 17 14 Estim Creat Clear Calc 37.3 44.5 Estimated GFR 43 52 Random Glucose 288 H 193 H Calcium 9.3 9.3 Assessment and Plan (1) COPD exacerbation: Status: Acute (2) UTI (urinary tract infection): Status: Acute Plan This is a 87-year-old male with pertinent history of COPD not on home oxygen, essential hypertension, mixed hyperlipidemia, CKD stage 3, mood disorder who was sent to the emergency department for evaluation of dyspnea and hypoxemia. Acute hypoxemic respiratory failure initially treated for pneumonia which has been apropriately treated with IV, COPD exacerbation was treated with IV steroid and bronchodilators by Neb. Patient's condition has worsened overtime with increasing O2 requirement and now BiPAP to maintain O2, CXR edema, infiltrate, atelectasis or effusion and BNP has been high so has been treated with IV Lasix. He likely has multifactorial acute hypoxic respiratory failure:copd, pna, heart failure. -Continue IV Abx to cover PNA (total 10 days) -IV steroid and bronchodilators for copd -Stop Lasix -cardiology and pulmonology consult -BiPAP to maintain O2 if needed -goals of care conversation with family UTI: Ceftriaxone started on 01/04/2023, cultre= providencia, sensitive to ceftriaxone Lactic acidosis: Due to hypoxemia, not sepsis. OLEG on CKD: ? cardiorenal syndrome, Creatine is better Essential hypertension: Continue home antihypertensives. Mixed hyperlipidemia: On statin and ezetimibe. Mood disorder: Continue home mood stabilizers. DNR/DNI Cardiac diet Nee for inpatient: management of copd with hypoxia, acute need of O2, UTI need IV Abx Discussed with daughters at bedside Time Spent With Patient Time: Total time managing care of this patient today ____ minutes. Quality Stroke Does the patient have a stroke diagnosis?: No VTE Prior VTE?: No VTE Risk Level:: Medical - moderate - high VTE Device Contraindication: Treatment Not Indicated VTE Drug Contraindication: N/A - Med Ordered
[2023-01-13] MEDS: methylPREDNISolone Sod Succ 40 MG/ML VIAL 20 MG IVPUSH (11:21)
--- NOTE | 2023-01-13 11:39 | P.PNPL_ITS ---
Subjective Subjective Date of Service: 01/14/23 Principal diagnosis: Pneumonia,Atalectasis , Respiratory failure , chronically elevated Lt Hemid Interval history: This 87 years old gentleman having been admitted since 01/03, has been treated for acute exacerbation of COPD with IV steroids and antibiotics. He continued to get worse with increasing respiratory distress. He did not tolerated the BiPAP, still trying to use it at night. He has been on high-flow O2, which he did not tolerate initially but now is tolerating fairly well. He is gradually improving, high-flow is at 32 L/minute at this time. He does understand the conversation and did express that he is feeling. Somewhat better Objective Data Labs 01/13/23 09:53 01/13/23 09:53 Labs: Laboratory Results - last 24 hr 01/13/23 09:53 WBC 14.0 H RBC 3.89 L Hgb 12.3 L Hct 37.2 L MCV 95.6 MCH 31.6 MCHC 33.1 RDW 13.3 Plt Count 194 MPV 10.4 Absolute Nucleated RBC 0.000 Nucleated RBC % (auto) 0.0 Sodium 140 Potassium 4.2 Chloride 99 Carbon Dioxide 31 H Anion Gap 14 BUN 38 H Creatinine 1.30 Estim Creat Clear Calc 44.5 Estimated GFR 52 Random Glucose 193 H Calcium 9.3 Microbiology Microbiology Results: Microbiology 01/03/23 21:44 Blood - Venous Blood Culture - Final No growth after 5 days. 01/03/23 21:48 Blood - Venous Blood Culture - Final No growth after 5 days. 01/04/23 Unknown Urine clean catch - Urine bush top Urine Culture - Final Providencia stuartii Enterococcus faecalis Physical Exam 2 Vital Signs: Vital Signs: Last Vital Signs Temp 98.1 F 01/13/23 11:04 Pulse 74 01/13/23 11:17 Resp 20 01/13/23 11:17 BP 127/61 01/13/23 11:04 Pulse Ox 95 01/13/23 11:04 O2 Del Method High Flow Nasal C annula 01/13/23 11:04 O2 Flow Rate 40 01/13/23 11:04 FiO2 55 01/13/23 11:04 Oxygen Flow Rate 4 01/03/23 21:03 BMI result Body Mass Index 32.5 Const: Other: On examination, he is alert today, able to converse , he still slightly anxious and does get short of breath during conversation. He has been afebrile Chest percussion shows dullness over the left lower lobe as before. Breath sounds are much decreased over the basilar areas especially. On the left side There are a few inspiratory crackles over the left base. Procedures Date of Service Date of Service: 01/14/23 Assessment and Plan Assessment and plan (1) Pneumonia: Status: Acute (2) COPD exacerbation: Status: Acute (3) Atelectasis of left lung: Status: Acute (4) Respiratory failure with hypoxia and hypercapnia: Status: Acute (5) Mucus plugging of bronchi: Status: Acute Plan I think his acute exacerbation of COPD and infectious part of pneumonia have been treated adequately. He does have atelectasis of the left lower lobe, and in addition he has patchy opacities in the right lung. The review of CT scan does show patchy opacities in the right lung, which may be partly due to mucus plugs and atelectasis. He does seem to have some endobronchial obstruction and complete atelectasis of the left lower lobe. His respiratory distress is slowly improving and O2 requirement is decreasing but he still needs O2 high-flow . Recc . Continue present medical regimen, May DC antibiotics as 10 days course is completed. Continue to wean down on high-flow. I have discussed the case with my colleague Dr. Samy Cotto, for possible bronchoscopy. It will be somewhat difficult to perform bronchoscopy as he is still on high-flow O2. He will re-evaluate in 1 or 2 days. In the meantime add chest percussion therapy ( CPT ) t.i.d. I will also add Mucomyst by nebulizer at least b.i.d.m Dr. Cotto will re-evaluate the case on Tuesday. Time Spent With Patient Time: Total time managing care of this patient today ____ minutes. Progress Note: Quality Stroke Does the patient have a stroke diagnosis?: No
[2023-01-13] MEDS: Acetylcysteine 10 % 400 MG/4 ML VIAL INHALE (19:36)
[2023-01-13] MEDS: Mirtazapine 15 MG TABLET 7.5 MG PO (20:45)
[2023-01-13] MEDS: Atorvastatin Calcium 80 MG TABLET PO (20:46)
[2023-01-14] VITALS (10 sets, daily range): BP systolic 130–140; BP diastolic 63–83; PULSE 53–77; RESP 18–20; TEMP 36.4–36.9; O2SAT 92–96
--- NOTE | 2023-01-14 00:03 | PM.EVENT ---
Event Note Date of Service: 01/14/23 Event Note: EKG with ?new onset AFib. Chads Vasc score 4, consider anticoagulation. Rate controlled and patient is on beta-priscilla Time Spent With Patient Time: Total time managing care of this patient today ____ minutes.
[2023-01-14] MEDS: methylPREDNISolone Sod Succ 40 MG/ML VIAL 20 MG IVPUSH ×3 (00:45→22:31)
[2023-01-14] MEDS: Enoxaparin Sodium 40 MG/0.4 ML SYRINGE SUBCUT ×2 (00:45→22:32)
[2023-01-14] MEDS: Albuterol/Iprat 2.5/0.5MG 3 ML AMPUL.NEB INHALE ×4 (07:40→19:36)
[2023-01-14] MEDS: Acetylcysteine 10 % 400 MG/4 ML VIAL INHALE ×2 (07:40→19:36)
--- NOTE | 2023-01-14 09:12 | MHC.CM.PN ---
Patient is not yet medically cleared for dc (? new onset Afib); returning to the [facility] is the goal and CM will continue to follow.
[2023-01-14] MEDS: Escitalopram Oxalate 5 MG TABLET PO (09:43)
[2023-01-14] MEDS: Metoprolol Succinate ER 50 MG TAB.ER.24H PO (09:43)
[2023-01-14] MEDS: Magnesium Oxide 400 MG TABLET PO (09:43)
[2023-01-14] MEDS: Potassium Chloride ER 10 MEQ TABLET.ER PO (09:43)
[2023-01-14] MEDS: amLODIPine Besylate 10 MG TABLET PO (09:43)
[2023-01-14] MEDS: Cyanocobalamin (Vitamin B-12) 1,000 MCG TABLET 2000 MCG PO (09:43)
[2023-01-14] MEDS: Multivitamin TABLET 1 TAB PO (09:43)
[2023-01-14] MEDS: Folic Acid 1 MG TABLET PO (09:43)
[2023-01-14] MEDS: Ezetimibe 10 MG TABLET PO (09:44)
--- NOTE | 2023-01-14 10:10 | HO.PM.IMPN ---
Subjective Subjective Date of Service: 01/14/23 Interval History: Patient is doing very well, has been weaned off High flow to now nasal canula. He mental status is back to baseline, lucid Physical Exam Vital Signs: Vital Signs: Last Vital Signs Temp 97.5 F 01/14/23 07:23 Pulse 67 01/14/23 07:43 Resp 20 01/14/23 07:43 BP 135/83 01/14/23 07:23 Pulse Ox 93 01/14/23 07:23 O2 Del Method Nasal Cannula 01/14/23 07:23 O2 Flow Rate 3 01/14/23 07:23 FiO2 92 01/14/23 03:51 Oxygen Flow Rate 4 01/03/23 21:03 BMI result Body Mass Index 32.5 Const: Other: General:awake aler, oriented to self and Plce, no distress at all Resp: sandhya rhonchi, no accessory muslce use CVS: S1,S2,RRR GI: +BS, NT, no distention, trace edema Skin: No rash Neuro: motor grossly intact Psych: appropriate affect Objective Data Active Medications Acetaminophen (Acetaminophen 325 Mg Tablet) 650 mg PO Q6H PRN PRN Reason: Pain, Mild (Pain Scale 1-3) Acetylcysteine (Acetylcysteine 10 % 400 Mg/4 Ml Vial) 400 mg INHALE RBID [facility] Last Admin: 01/14/23 07:40 Dose: 400 mg Documented By: HILARY Albuterol/Ipratropium (Albuterol/Iprat 2.5/0.5mg 3 Ml Ampul.Neb) 3 ml INHALE RQ4H WHILE AWAKE [facility] Last Admin: 01/14/23 07:40 Dose: 3 ml Documented By: HILARY Albuterol/Ipratropium (Albuterol/Iprat 2.5/0.5mg 3 Ml Ampul.Neb) 3 ml INHALE Q4H PRN PRN Reason: Wheezing Last Admin: 01/08/23 05:25 Dose: 3 ml Documented By: KYM Amlodipine Besylate (Amlodipine Besylate 10 Mg Tablet) 10 mg PO DAILY [facility]; Protocol Last Admin: 01/14/23 09:43 Dose: 10 mg Documented By: MARIAJOSE Atorvastatin Calcium (Atorvastatin Calcium 80 Mg Tablet) 80 mg PO BEDTIME [facility] Last Admin: 01/13/23 20:46 Dose: 80 mg Documented By: CHRIS Cyanocobalamin (Cyanocobalamin (Vitamin B-12) 1,000 Mcg Tablet) 2,000 mcg PO DAILY [facility] Last Admin: 01/14/23 09:43 Dose: 2,000 mcg Documented By: MARIAJOSE Ezetimibe (Ezetimibe 10 Mg Tablet) 10 mg PO DAILY [facility] Last Admin: 01/14/23 09:44 Dose: 10 mg Documented By: MARIAJOSE Enoxaparin Sodium (Enoxaparin Sodium 40 Mg/0.4 Ml Syringe) 40 mg SUBCUT Q24H [facility] Last Admin: 01/14/23 00:45 Dose: 40 mg Documented By: CHRIS Escitalopram Oxalate (Escitalopram Oxalate 5 Mg Tablet) 5 mg PO DAILY [facility] Last Admin: 01/14/23 09:43 Dose: 5 mg Documented By: MARIAJOSE Folic Acid (Folic Acid 1 Mg Tablet) 1 mg PO DAILY [facility] Last Admin: 01/14/23 09:43 Dose: 1 mg Documented By: MARIAJOSE Guaifenesin (Guaifenesin 100 Mg/5 Ml Liquid) 10 ml PO Q4H PRN PRN Reason: Cough Last Admin: 01/08/23 23:34 Dose: 10 ml Documented By: NGUYỄN Azithromycin 500 mg/ Sodium (Chloride) 250 mls @ 125 mls/hr IV Q24H [facility] Last Infusion: 01/14/23 02:20 Dose: Infused Documented By: CHRIS Latanoprost (Latanoprost 0.005 % Ophth Lolita 2.5 Ml Drops) 0 drop EYE-BOTH BEDTIME [facility] Last Admin: 01/13/23 20:46 Dose: 1 drop Documented By: CHRIS Lorazepam (Lorazepam 0.5 Mg Tablet) 0.25 mg PO Q6H PRN PRN Reason: anxiety/restlessness Last Admin: 01/09/23 12:45 Dose: 0.25 mg Documented By: CARLOS Magnesium Oxide (Magnesium Oxide 400 Mg Tablet) 400 mg PO DAILY [facility] Last Admin: 01/14/23 09:43 Dose: 400 mg Documented By: MARIAJOSE Melatonin (Melatonin 3 Mg Tablet) 6 mg PO BEDTIME PRN PRN Reason: Insomnia Last Admin: 01/09/23 00:46 Dose: 6 mg Documented By: NGUYỄN Methylprednisolone Sodium Succinate (Methylprednisolone Sod Succ 40 Mg/Ml Vial) 20 mg IVPUSH Q12H [facility] Last Admin: 01/14/23 09:44 Dose: 20 mg Documented By: MARIAJOSE Metoprolol Succinate (Metoprolol Succinate Er 50 Mg Tab.Er.24h) 50 mg PO DAILY [facility]; Protocol Last Admin: 01/14/23 09:43 Dose: 50 mg Documented By: MARIAJOSE Mirtazapine (Mirtazapine 15 Mg Tablet) 7.5 mg PO BEDTIME [facility] Last Admin: 01/13/23 20:45 Dose: 7.5 mg Documented By: CHRIS Multivitamins/Vitamin C (Multivitamin Tablet) 1 tab PO DAILY [facility] Last Admin: 01/14/23 09:43 Dose: 1 tab Documented By: MARIAJOSE Ondansetron HCl (Ondansetron Hcl 4 Mg/2 Ml Vial) 4 mg IVPUSH Q8H PRN PRN Reason: Nausea and Vomiting Potassium Chloride (Potassium Chloride Er 10 Meq Tablet.Er) 10 meq PO DAILY [facility] Last Admin: 01/14/23 09:43 Dose: 10 meq Documented By: MARIAJOSE Sodium Chloride (0.9 % Sodium Chloride Flush 3 Ml Syringe) 3 ml IVFLUSH QSHIFT [facility] Last Admin: 01/14/23 09:44 Dose: 3 ml Documented By: MARIAJOSE Labs 01/13/23 09:53 01/13/23 09:53 Labs: Laboratory Results - last 24 hr 01/13/23 09:53 MCV 95.6 MCH 31.6 MCHC 33.1 RDW 13.3 Plt Count 194 MPV 10.4 Absolute Nucleated RBC 0.000 Nucleated RBC % (auto) 0.0 Anion Gap 14 Estim Creat Clear Calc 44.5 Estimated GFR 52 Random Glucose 193 H Calcium 9.3 Assessment and Plan (1) COPD exacerbation: Status: Acute (2) UTI (urinary tract infection): Status: Acute Plan This is a 87-year-old male with pertinent history of COPD not on home oxygen, essential hypertension, mixed hyperlipidemia, CKD stage 3, mood disorder who was sent to the emergency department for evaluation of dyspnea and hypoxemia. Acute hypoxemic respiratory failure initially likely from combination of PNA, CHF, COPD and mucus. -PNA treated with Azithro + Ceftriaxone x 10 days, cultures have been negative and will DC Abx today -CHF, acute diastolic CHF, diuressed with IV Lasix, Echo EF 59%, negative 3.5 L, hold further diuretics at this time. -COPD exa, treated with IV steroid + Bronchodilators by Neb, stop IV steroid. PO prednisone 10 mg x 3 more days. -Overall pt has signficantly improved, he at some point required BiPAP due to severe Hypoxia, ultimately was weaned off to High Flow then Oximyzer and is now on nasal canula. His breathing is easy. CT chest on 01/12 showed possible mucus..discussed with Dr. Alvarez, patient doesn't want any intervetion. Leukocytosis likely from steroid, peaked at 20 on 01/12 and as of 01/13, 14 Delerium/metabolic encephalopathy--likely from hypoxia and acute illness, now resolved. UTI: cultre= providencia, sensitive to ceftriaxone Ceftriaxone treated x 10 days Lactic acidosis: Due to hypoxemia, not sepsis. OLEG on CKD: ? cardiorenal syndrome, Creatine peaked at 1.55 and as of 01/13 1.3 Essential hypertension: Continue Metoprolol Mixed hyperlipidemia: On Lipitor and ezetimibe. Mood disorder: continue Celexa DNR/DNI Cardiac diet Nee for inpatient: management of copd with hypoxia, acute need of O2, UTI need IV Abx Discussed with daughters at bedside anticipate DC in a day or 2 [facility] Time Spent With Patient Time: Total time managing care of this patient today ____ minutes. Quality Stroke Does the patient have a stroke diagnosis?: No VTE Prior VTE?: No VTE Risk Level:: Medical - moderate - high VTE Device Contraindication: Treatment Not Indicated VTE Drug Contraindication: N/A - Med Ordered
[2023-01-14] MEDS: Mirtazapine 15 MG TABLET 7.5 MG PO (22:30)
[2023-01-14] MEDS: Atorvastatin Calcium 80 MG TABLET PO (22:32)
[2023-01-15] VITALS (8 sets, daily range): BP systolic 110–142; BP diastolic 61–83; PULSE 68–85; RESP 16–20; TEMP 36.1–37.1; O2SAT 90–94
--- NOTE | 2023-01-15 | ECG_ITS ---
Test Reason : afib Blood Pressure : / mmHG Vent. Rate : 062 BPM Atrial Rate : 000 BPM P-R Int : 000 ms QRS Dur : 080 ms QT Int : 386 ms P-R-T Axes : 000 010 009 degrees QTc Int : 391 ms Atrial fibrillation Abnormal ECG When compared with ECG of 13-JAN-2023 23:41, No significant change was found Referred By: [facility] Electronically Signed By:AMEYA FARMER MD
[2023-01-15] MEDS: Albuterol/Iprat 2.5/0.5MG 3 ML AMPUL.NEB INHALE ×3 (07:39→19:17)
[2023-01-15] MEDS: Acetylcysteine 10 % 400 MG/4 ML VIAL INHALE ×2 (07:39→19:17)
--- NOTE | 2023-01-15 09:19 | HO.PM.IMPN ---
Subjective Subjective Date of Service: 01/15/23 Interval History: Pat has gone into AFIB with RVR with Heart rate up to 140s this morning, but presently 70s, Physical Exam Vital Signs: Vital Signs: Last Vital Signs Temp 98.2 F 01/15/23 07:37 Pulse 74 01/15/23 07:43 Resp 16 01/15/23 07:43 BP 138/68 01/15/23 07:37 Pulse Ox 93 01/15/23 07:37 O2 Del Method Nasal Cannula 01/15/23 07:37 O2 Flow Rate 4 01/15/23 07:37 FiO2 92 01/14/23 23:59 Oxygen Flow Rate 4 01/03/23 21:03 BMI result Body Mass Index 32.5 Const: Other: General:awake aler, oriented to self and Plce, no distress at all Resp: sandhya rhonchi, no accessory muslce use CVS: S1,S2,iregular iregular GI: +BS, NT, no distention, trace edema Skin: No rash Neuro: motor grossly intact Psych: appropriate affect Objective Data Active Medications Acetaminophen (Acetaminophen 325 Mg Tablet) 650 mg PO Q6H PRN PRN Reason: Pain, Mild (Pain Scale 1-3) Acetylcysteine (Acetylcysteine 10 % 400 Mg/4 Ml Vial) 400 mg INHALE RBID [facility] Last Admin: 01/15/23 07:39 Dose: 400 mg Documented By: RAJAN Albuterol/Ipratropium (Albuterol/Iprat 2.5/0.5mg 3 Ml Ampul.Neb) 3 ml INHALE RQ4H WHILE AWAKE [facility] Last Admin: 01/15/23 07:39 Dose: 3 ml Documented By: RAJAN Albuterol/Ipratropium (Albuterol/Iprat 2.5/0.5mg 3 Ml Ampul.Neb) 3 ml INHALE Q4H PRN PRN Reason: Wheezing Last Admin: 01/08/23 05:25 Dose: 3 ml Documented By: KYM Amlodipine Besylate (Amlodipine Besylate 10 Mg Tablet) 10 mg PO DAILY [facility]; Protocol Last Admin: 01/14/23 09:43 Dose: 10 mg Documented By: MARIAJOSE Atorvastatin Calcium (Atorvastatin Calcium 80 Mg Tablet) 80 mg PO BEDTIME [facility] Last Admin: 01/14/23 22:32 Dose: 80 mg Documented By: CHRIS Cyanocobalamin (Cyanocobalamin (Vitamin B-12) 1,000 Mcg Tablet) 2,000 mcg PO DAILY [facility] Last Admin: 01/14/23 09:43 Dose: 2,000 mcg Documented By: MARIAJOSE Ezetimibe (Ezetimibe 10 Mg Tablet) 10 mg PO DAILY [facility] Last Admin: 01/14/23 09:44 Dose: 10 mg Documented By: MARIAJOSE Enoxaparin Sodium (Enoxaparin Sodium 40 Mg/0.4 Ml Syringe) 40 mg SUBCUT Q24H [facility] Last Admin: 01/14/23 22:32 Dose: 40 mg Documented By: CHRIS Escitalopram Oxalate (Escitalopram Oxalate 5 Mg Tablet) 5 mg PO DAILY [facility] Last Admin: 01/14/23 09:43 Dose: 5 mg Documented By: MARIAJOSE Folic Acid (Folic Acid 1 Mg Tablet) 1 mg PO DAILY [facility] Last Admin: 01/14/23 09:43 Dose: 1 mg Documented By: MARIAJOSE Guaifenesin (Guaifenesin 100 Mg/5 Ml Liquid) 10 ml PO Q4H PRN PRN Reason: Cough Last Admin: 01/08/23 23:34 Dose: 10 ml Documented By: NGUYỄN Latanoprost (Latanoprost 0.005 % Ophth Lolita 2.5 Ml Drops) 0 drop EYE-BOTH BEDTIME [facility] Last Admin: 01/14/23 22:33 Dose: 1 drop Documented By: CHRIS Lorazepam (Lorazepam 0.5 Mg Tablet) 0.25 mg PO Q6H PRN PRN Reason: anxiety/restlessness Last Admin: 01/09/23 12:45 Dose: 0.25 mg Documented By: CARLOS Magnesium Oxide (Magnesium Oxide 400 Mg Tablet) 400 mg PO DAILY [facility] Last Admin: 01/14/23 09:43 Dose: 400 mg Documented By: MARIAJOSE Melatonin (Melatonin 3 Mg Tablet) 6 mg PO BEDTIME PRN PRN Reason: Insomnia Last Admin: 01/09/23 00:46 Dose: 6 mg Documented By: NGUYỄN Metoprolol Succinate (Metoprolol Succinate Er 50 Mg Tab.Er.24h) 50 mg PO DAILY [facility]; Protocol Last Admin: 01/14/23 09:43 Dose: 50 mg Documented By: MARIAJOSE Mirtazapine (Mirtazapine 15 Mg Tablet) 7.5 mg PO BEDTIME [facility] Last Admin: 01/14/23 22:30 Dose: 7.5 mg Documented By: CHRIS Multivitamins/Vitamin C (Multivitamin Tablet) 1 tab PO DAILY [facility] Last Admin: 01/14/23 09:43 Dose: 1 tab Documented By: MARIAJOSE Ondansetron HCl (Ondansetron Hcl 4 Mg/2 Ml Vial) 4 mg IVPUSH Q8H PRN PRN Reason: Nausea and Vomiting Potassium Chloride (Potassium Chloride Er 10 Meq Tablet.Er) 10 meq PO DAILY [facility] Last Admin: 01/14/23 09:43 Dose: 10 meq Documented By: MARIAJOSE Sodium Chloride (0.9 % Sodium Chloride Flush 3 Ml Syringe) 3 ml IVFLUSH QSHIFT [facility] Last Admin: 01/14/23 22:32 Dose: 3 ml Documented By: CHRIS Labs 01/13/23 09:53 01/13/23 09:53 Assessment and Plan (1) COPD exacerbation: Status: Acute (2) UTI (urinary tract infection): Status: Acute Plan This is a 87-year-old male with pertinent history of COPD not on home oxygen, essential hypertension, mixed hyperlipidemia, CKD stage 3, mood disorder who was sent to the emergency department for evaluation of dyspnea and hypoxemia. Acute hypoxemic respiratory failure initially likely from combination of PNA, CHF, COPD and mucus. -PNA treated with Azithro + Ceftriaxone x 10 days, cultures have been negative and will DC Abx today -CHF, acute diastolic CHF, diuressed with IV Lasix, Echo EF 59%, negative 3.5 L, thus far, IV Lasix today, change to PO tomorrow -COPD exa, treated with IV steroid + Bronchodilators by Neb, stop IV steroid. PO prednisone 10 mg x 3 more days. -Overall pt has signficantly improved, he at some point required BiPAP due to severe Hypoxia, ultimately was weaned off to High Flow then Oximyzer and is now on nasal canula. His breathing is easy. CT chest on 01/12 showed possible mucus..discussed with Dr. Alvarez, patient doesn't want any intervetion. New AFIB with variable rate presently rate controlled. Continue Metoprolol to control rate, I see no ontraindindication for anticoagulation so will start eliquis and further discuss with family Leukocytosis likely from steroid, peaked at 20 on 01/12 and as of 01/13, 14 Delerium/metabolic encephalopathy--likely from hypoxia and acute illness, now resolved. UTI: cultre= providencia, sensitive to ceftriaxone Ceftriaxone treated x 10 days Lactic acidosis: Due to hypoxemia, not sepsis. OLEG on CKD: ? cardiorenal syndrome, Creatine peaked at 1.55 and as of 01/13 1.3 Essential hypertension: Continue Metoprolol Mixed hyperlipidemia: On Lipitor and ezetimibe. Mood disorder: continue Celexa DNR/DNI Cardiac diet Nee for inpatient: management of copd with hypoxia, acute need of O2, UTI need IV Abx Discussed with daughters at bedside anticipate DC in a day or 2 [facility] Time Spent With Patient Time: Total time managing care of this patient today ____ minutes. Quality Stroke Does the patient have a stroke diagnosis?: No VTE Prior VTE?: No VTE Risk Level:: Medical - moderate - high VTE Device Contraindication: Treatment Not Indicated VTE Drug Contraindication: N/A - Med Ordered
[2023-01-15] MEDS: Multivitamin TABLET 1 TAB PO (09:52)
[2023-01-15] MEDS: Potassium Chloride ER 10 MEQ TABLET.ER PO (09:52)
[2023-01-15] MEDS: Escitalopram Oxalate 5 MG TABLET PO (09:52)
[2023-01-15] MEDS: Furosemide 40 MG/4 ML VIAL IVPUSH (09:52)
[2023-01-15] MEDS: Magnesium Oxide 400 MG TABLET PO (09:53)
[2023-01-15] MEDS: Apixaban 2.5 MG TABLET PO ×2 (09:53→21:12)
[2023-01-15] MEDS: Cyanocobalamin (Vitamin B-12) 1,000 MCG TABLET 2000 MCG PO (09:53)
[2023-01-15] MEDS: amLODIPine Besylate 10 MG TABLET PO (09:53)
[2023-01-15] MEDS: Metoprolol Succinate ER 50 MG TAB.ER.24H PO (09:53)
[2023-01-15] MEDS: Ezetimibe 10 MG TABLET PO (09:53)
[2023-01-15] MEDS: Folic Acid 1 MG TABLET PO (09:53)
[2023-01-15] MEDS: Mirtazapine 15 MG TABLET 7.5 MG PO (21:12)
[2023-01-15] MEDS: Atorvastatin Calcium 80 MG TABLET PO (21:12)
[2023-01-16] VITALS (11 sets, daily range): BP systolic 113–134; BP diastolic 57–74; PULSE 66–90; RESP 15–20; TEMP 36.2–36.7; O2SAT 91–96
[2023-01-16 07:38] LABS: Hematocrit 36.7 % (42.0-52.0); Hemoglobin 12.1 g/dl (14.0-18.0); Mean Corpuscular Hemoglobin 31.3 pg (27.0-33.0); Mean Corpuscular Volume 95.1 fL (80.0-98.0); Mean Platelet Volume 10.3 fL (9.4-12.4); Platelet Count 153 X10*3/uL (160-400); Red Blood Count 3.86 X10*6/uL (4.60-5.80); Red Cell Distribution Width 13.1 % (11.0-16.0); White Blood Count 14.6 X10*3/uL (4.8-10.8)
[2023-01-16] MEDS: Albuterol/Iprat 2.5/0.5MG 3 ML AMPUL.NEB INHALE ×3 (07:50→19:07)
[2023-01-16] MEDS: Acetylcysteine 10 % 400 MG/4 ML VIAL INHALE ×2 (07:50→19:07)
[2023-01-16 07:54] LABS: Anion Gap 15 (12-20); Blood Urea Nitrogen 42 mg/dL (9-16); Calcium 8.9 mg/dL (8.4-10.2); Carbon Dioxide 30 mmol/L (22-29); Chloride 102 mmol/L (96-108); Creatinine Clr Calc Pharmacy 43.8; Estimated Glomerular Filt Rate 51; Glucose Random 139 mg/dL (60-115); Potassium 3.6 mmol/L (3.3-5.1); Sodium 143 mmol/L (135-145)
[2023-01-16] MEDS: Potassium Chloride ER 10 MEQ TABLET.ER PO (08:11)
[2023-01-16] MEDS: Escitalopram Oxalate 5 MG TABLET PO (08:11)
[2023-01-16] MEDS: Metoprolol Succinate ER 50 MG TAB.ER.24H PO (08:11)
[2023-01-16] MEDS: Ezetimibe 10 MG TABLET PO (08:11)
[2023-01-16] MEDS: Cyanocobalamin (Vitamin B-12) 1,000 MCG TABLET 2000 MCG PO (08:11)
[2023-01-16] MEDS: Apixaban 2.5 MG TABLET PO ×2 (08:11→20:32)
[2023-01-16] MEDS: Magnesium Oxide 400 MG TABLET PO (08:11)
[2023-01-16] MEDS: Folic Acid 1 MG TABLET PO (08:11)
[2023-01-16] MEDS: Multivitamin TABLET 1 TAB PO (08:11)
[2023-01-16] MEDS: amLODIPine Besylate 10 MG TABLET PO (08:11)
--- NOTE | 2023-01-16 09:46 | P.PNIM_ITS ---
Subjective Subjective Date of Service: 01/16/23 Interval History: He's doing better, no respriatory issues, and expressing desire to return to [facility] Physical Exam 2 Vital Signs: Vital Signs: Last Vital Signs Temp 97.6 F 01/16/23 07:32 Pulse 69 01/16/23 07:53 Resp 16 01/16/23 07:53 BP 113/57 L 01/16/23 07:32 Pulse Ox 92 01/16/23 07:32 O2 Del Method Nasal Cannula 01/16/23 07:32 O2 Flow Rate 4 01/16/23 07:32 FiO2 92 01/14/23 23:59 Oxygen Flow Rate 4 01/03/23 21:03 BMI result Body Mass Index 32.5 Const: Other: General:awake aler, oriented to self and Plce, no distress at all Resp: sandhya rhonchi, no accessory muslce use CVS: S1,S2,iregular iregular GI: +BS, NT, no distention, trace edema Skin: No rash Neuro: motor grossly intact Psych: appropriate affect Objective Data Active Medications Acetaminophen (Acetaminophen 325 Mg Tablet) 650 mg PO Q6H PRN PRN Reason: Pain, Mild (Pain Scale 1-3) Acetylcysteine (Acetylcysteine 10 % 400 Mg/4 Ml Vial) 400 mg INHALE RBID [facility] Last Admin: 01/16/23 07:50 Dose: 400 mg Documented By: RAJAN Albuterol/Ipratropium (Albuterol/Iprat 2.5/0.5mg 3 Ml Ampul.Neb) 3 ml INHALE RQ4H WHILE AWAKE [facility] Last Admin: 01/16/23 07:50 Dose: 3 ml Documented By: RAJAN Albuterol/Ipratropium (Albuterol/Iprat 2.5/0.5mg 3 Ml Ampul.Neb) 3 ml INHALE Q4H PRN PRN Reason: Wheezing Last Admin: 01/08/23 05:25 Dose: 3 ml Documented By: KYM Amlodipine Besylate (Amlodipine Besylate 10 Mg Tablet) 10 mg PO DAILY [facility]; Protocol Last Admin: 01/16/23 08:11 Dose: 10 mg Documented By: ASHLEY Apixaban (Apixaban 2.5 Mg Tablet) 2.5 mg PO BID [facility] Last Admin: 01/16/23 08:11 Dose: 2.5 mg Documented By: ASHLEY Atorvastatin Calcium (Atorvastatin Calcium 80 Mg Tablet) 80 mg PO BEDTIME [facility] Last Admin: 01/15/23 21:12 Dose: 80 mg Documented By: CHRIS Cyanocobalamin (Cyanocobalamin (Vitamin B-12) 1,000 Mcg Tablet) 2,000 mcg PO DAILY [facility] Last Admin: 01/16/23 08:11 Dose: 2,000 mcg Documented By: ASHLEY Ezetimibe (Ezetimibe 10 Mg Tablet) 10 mg PO DAILY [facility] Last Admin: 01/16/23 08:11 Dose: 10 mg Documented By: ASHLEY Escitalopram Oxalate (Escitalopram Oxalate 5 Mg Tablet) 5 mg PO DAILY [facility] Last Admin: 01/16/23 08:11 Dose: 5 mg Documented By: ASHLEY Folic Acid (Folic Acid 1 Mg Tablet) 1 mg PO DAILY [facility] Last Admin: 01/16/23 08:11 Dose: 1 mg Documented By: ASHLEY Guaifenesin (Guaifenesin 100 Mg/5 Ml Liquid) 10 ml PO Q4H PRN PRN Reason: Cough Last Admin: 01/08/23 23:34 Dose: 10 ml Documented By: NGUYỄN Latanoprost (Latanoprost 0.005 % Ophth Lolita 2.5 Ml Drops) 0 drop EYE-BOTH BEDTIME [facility] Last Admin: 01/15/23 21:12 Dose: 1 drop Documented By: CHRIS Lorazepam (Lorazepam 0.5 Mg Tablet) 0.25 mg PO Q6H PRN PRN Reason: anxiety/restlessness Last Admin: 01/09/23 12:45 Dose: 0.25 mg Documented By: CARLOS Magnesium Oxide (Magnesium Oxide 400 Mg Tablet) 400 mg PO DAILY [facility] Last Admin: 01/16/23 08:11 Dose: 400 mg Documented By: ASHLEY Melatonin (Melatonin 3 Mg Tablet) 6 mg PO BEDTIME PRN PRN Reason: Insomnia Last Admin: 01/09/23 00:46 Dose: 6 mg Documented By: NGUYỄN Metoprolol Succinate (Metoprolol Succinate Er 50 Mg Tab.Er.24h) 50 mg PO DAILY [facility]; Protocol Last Admin: 01/16/23 08:11 Dose: 50 mg Documented By: ASHLEY Mirtazapine (Mirtazapine 15 Mg Tablet) 7.5 mg PO BEDTIME [facility] Last Admin: 01/15/23 21:12 Dose: 7.5 mg Documented By: CHRIS Multivitamins/Vitamin C (Multivitamin Tablet) 1 tab PO DAILY [facility] Last Admin: 01/16/23 08:11 Dose: 1 tab Documented By: ASHLEY Ondansetron HCl (Ondansetron Hcl 4 Mg/2 Ml Vial) 4 mg IVPUSH Q8H PRN PRN Reason: Nausea and Vomiting Potassium Chloride (Potassium Chloride Er 10 Meq Tablet.Er) 10 meq PO DAILY [facility] Last Admin: 01/16/23 08:11 Dose: 10 meq Documented By: ASHLEY Sodium Chloride (0.9 % Sodium Chloride Flush 3 Ml Syringe) 3 ml IVFLUSH QSHIFT [facility] Last Admin: 01/16/23 08:12 Dose: 3 ml Documented By: ASHLEY Labs 01/16/23 07:26 01/16/23 07:26 Labs: Laboratory Results - last 24 hr 01/16/23 07:26 MCV 95.1 MCH 31.3 MCHC 33.0 RDW 13.1 Plt Count 153 L MPV 10.3 Absolute Nucleated RBC 0.000 Nucleated RBC % (auto) 0.0 Anion Gap 15 Estim Creat Clear Calc 43.8 Estimated GFR 51 Random Glucose 139 H Calcium 8.9 Assessment and Plan (1) Respiratory failure with hypoxia and hypercapnia: Status: Acute (2) Acute respiratory failure: Status: Acute (3) Mucus plugging of bronchi: Status: Acute Plan This is a 87-year-old male with pertinent history of COPD not on home oxygen, essential hypertension, mixed hyperlipidemia, CKD stage 3, mood disorder who was sent to the emergency department for evaluation of dyspnea and hypoxemia. Acute hypoxemic respiratory failure initially likely from combination of PNA, CHF, COPD and mucus. -PNA treated with Azithro + Ceftriaxone x 10 days, cultures have been negative.. Has completed 10 days of Abx -CHF, acute diastolic CHF, diuressed with IV Lasix, Echo EF 59%, negative 3.5 L, thus far, IV Lasix today, PO lasix 40 daily -COPD exa, treated with IV steroid + Bronchodilators by Neb, stop IV steroid. PO prednisone 10 mg x 3 more days. -Overall pt has signficantly improved, he at some point required BiPAP due to severe Hypoxia, ultimately was weaned off to High Flow then Oximyzer and is now on nasal canula. His breathing is easy. CT chest on 01/12 showed possible mucus..discussed with Dr. Alvarez, patient doesn't want any intervetion. He will need supplemental oxygen at discharge New AFIB with variable rate presently rate controlled. Continue Metoprolol to control rate, I see no ontraindindication for anticoagulation so will start eliquis and further discuss with family Leukocytosis likely from steroid, peaked at 20 on 01/12 and as of 01/13, 14 Delerium/metabolic encephalopathy--likely from hypoxia and acute illness, now resolved. UTI: cultre= providencia, sensitive to ceftriaxone Ceftriaxone treated x 10 days Lactic acidosis: Due to hypoxemia, not sepsis. OLEG on CKD: ? cardiorenal syndrome, Creatine peaked at 1.55 and as of 01/13 1.3 Essential hypertension: Continue Metoprolol Mixed hyperlipidemia: On Lipitor and ezetimibe. Mood disorder: continue Celexa DNR/DNI Cardiac diet Nee for inpatient: management of copd with hypoxia, acute need of O2, UTI need IV Abx Discussed with daughters at bedside anticipate DC in a day soon, I will discuss with Time Spent With Patient Time: Total time managing care of this patient today ____ minutes. Quality Stroke Does the patient have a stroke diagnosis?: No VTE Prior VTE?: No VTE Risk Level:: Medical - moderate - high VTE Device Contraindication: Treatment Not Indicated VTE Drug Contraindication: N/A - Med Ordered
[2023-01-16] MEDS: Furosemide 40 MG TABLET PO (10:08)
[2023-01-16] MEDS: Milk of Magnesia 30 ML ORAL.SUSP PO (18:08)
[2023-01-16] MEDS: Atorvastatin Calcium 80 MG TABLET PO (20:32)
[2023-01-16] MEDS: Mirtazapine 15 MG TABLET 7.5 MG PO (20:32)
[2023-01-16] MEDS: Docusate Sodium 100 MG CAPSULE PO (20:32)
[2023-01-17] VITALS: BP 118/70; PULSE 67; RESP 20; TEMP 36.1; O2SAT 92
[2023-01-17 04:00] VITALS: BP 126/68; PULSE 74; RESP 18; TEMP 36.7; O2SAT 93
[2023-01-17] MEDS: polyethylene glycoL 3350 17 GM POWD.PACK PO (05:04)
[2023-01-17] MEDS: Albuterol/Iprat 2.5/0.5MG 3 ML AMPUL.NEB INHALE (07:43)
[2023-01-17] MEDS: Acetylcysteine 10 % 400 MG/4 ML VIAL INHALE (07:43)
[2023-01-17 07:44] VITALS: BP 120/60; PULSE 65; PULSE 66; RESP 18; TEMP 36.2; O2SAT 91; O2SAT 94
[2023-01-17] MEDS: Docusate Sodium 100 MG CAPSULE PO (08:10)
[2023-01-17] MEDS: Escitalopram Oxalate 5 MG TABLET PO (08:10)
[2023-01-17] MEDS: Multivitamin TABLET 1 TAB PO (08:10)
[2023-01-17] MEDS: Apixaban 2.5 MG TABLET PO (08:10)
[2023-01-17] MEDS: Magnesium Oxide 400 MG TABLET PO (08:10)
[2023-01-17] MEDS: Ezetimibe 10 MG TABLET PO (08:10)
[2023-01-17] MEDS: amLODIPine Besylate 10 MG TABLET PO (08:10)
[2023-01-17] MEDS: Cyanocobalamin (Vitamin B-12) 1,000 MCG TABLET 2000 MCG PO (08:10)
[2023-01-17] MEDS: Folic Acid 1 MG TABLET PO (08:11)
[2023-01-17] MEDS: Metoprolol Succinate ER 50 MG TAB.ER.24H PO (08:11)
[2023-01-17] MEDS: Furosemide 40 MG TABLET PO (08:11)
[2023-01-17] MEDS: Potassium Chloride ER 10 MEQ TABLET.ER PO (08:11)
--- NOTE | 2023-01-17 09:30 | PM.DS ---
DS: Providers Provider Date of Service: 01/17/23 Date of admission: 01/03/23 22:34 Primary care physician: Ramón Ortega MD Consults: 01/06/23 10:22 Consult to Nephrology Routine Consulting Provider: Wilber Lemon Reason for consultation: OLEG Has provider been notified: No 01/10/23 09:55 Consult to Pulmonology Routine Consulting Provider: [facility] Pulmonology Services Reason for consultation: PNeumona with respiratory failure 01/10/23 10:47 Consult to Cardiology Routine Consulting Provider: [facility] Cardiovascular Services Reason for consultation: Heart failure 01/13/23 11:54 Consult to Pulmonology Routine Consulting Provider: [facility] Pulmonology Services Reason for consultation: Pneumonia / Atalectasis / Mucous plugging Has provider been notified: Yes DS: Diagnosis Discharge Diagnosis (1) Respiratory failure with hypoxia and hypercapnia: Status: Acute (2) Acute respiratory failure: Status: Acute (3) Mucus plugging of bronchi: Status: Acute DS: Summary Hospital Course Hospital Course: Admission and H and P Chief Complaint: Dyspnea This is a 87-year-old male with pertinent history of COPD not on home oxygen, essential hypertension, mixed hyperlipidemia, CKD stage 3, mood disorder who was sent to the emergency department for evaluation of dyspnea and hypoxemia. Patient is a resident of [facility] and was sent to the ER as he was found to be hypoxemic in the 80s. Patient has been having 3 days of nonproductive cough and wheezing. Has associated dyspnea, worse with exertion. Patient states his cough is mostly nonproductive but intermittently he has some mucus. He was given 3 days of Augmentin for bronchitis without any relief. He continued to have wheezing. Patient denies fever, chills, chest discomfort, palpitations, nausea, vomiting, abdominal pain, changes in urinary or bowel habits. In the emergency department, patient was found to be hypoxemic and requiring 4 L supplemental oxygen Hospital course: The patient's initial complaint was shortness of breath, and the initial assessment indicated acute hypoxic respiratory failure, pneumonia, exacerbation of chronic obstructive pulmonary disease (COPD), and a urinary tract infection (UTI). The patient experienced a prolonged episode of respiratory failure, marked by persistent hypoxia. As the hospital stay progressed, several complications arose, including heart failure, the presence of a mucus plug, and the development of new-onset atrial fibrillation (AFIB). The patient's hospital course can be summarized as follows based on these issues: The patient experienced acute hypoxemic respiratory failure due to a combination of pneumonia (PNA), congestive heart failure (CHF), chronic obstructive pulmonary disease (COPD), and mucus buildup. The hypoxia became severe, necessitating the use of BiPAP initially and later high-flow oxygen, which was successfully transitioned to nasal cannula support. The pneumonia was treated with a 10-day course of Azithromycin and Ceftriaxone, with blood cultures yielding negative results. COPD exacerbation was managed with intravenous steroids and bronchodilators administered via nebulizer. The patient was evaluated by a iuss acoustic analyst, and a CT scan indicated the presence of a mucus plug. The patient opted against bronchoscopy and was managed conservatively with chest physiotherapy, resulting in improvement. Acute diastolic heart failure was addressed with intravenous Lasix, leading to a negative fluid balance of 3.5 liters. The patient will continue with oral Lasix at a daily dose of 40 mg. Cardiology was consulted to assist in managing the patient's condition. Additionally, the patient developed atrial fibrillation with a rapid ventricular response (AFIB with RVR) despite no prior history of AFIB. The heart rate is now under control, and the patient has commenced anticoagulation therapy with Eliquis due to the absence of contraindication Leukocytosis likely from steroid, peaked at 20 on 01/12 and as of 01/13, 14 Delerium/metabolic encephalopathy--likely from hypoxia and acute illness, now resolved. UTI: cultre = providencia, sensitive to ceftriaxone Ceftriaxone treated x 10 days Acute Lactic acidosis: Due to hypoxemia, not sepsis. OLEG on CKD: ? cardiorenal syndrome, Creatine peaked at 1.55 and as of 01/13 1.3 Essential hypertension: Continue Metoprolol Mixed hyperlipidemia: On Lipitor and ezetimibe. Mood disorder: continue Celexa Time Spent with Patient Time attestation: Total time managing care of this patient today ____ minutes. Discharge coordination time: Greater than 30 minutes Quality: Safe Use of Opioids Does Pt have an Active Cancer Diagnosis on the Problem List?: No Quality: Stroke Does the patient have a stroke diagnosis?: No Physical Exam Vital Signs: Vital Signs: Last Vital Signs Temp 97.2 F 01/17/23 07:44 Pulse 65 01/17/23 07:44 Resp 18 01/17/23 07:44 BP 120/60 01/17/23 07:44 Pulse Ox 91 L 01/17/23 07:44 O2 Del Method Nasal Cannula 01/17/23 07:44 O2 Flow Rate 3 01/17/23 07:44 FiO2 92 01/14/23 23:59 Oxygen Flow Rate 4 01/03/23 21:03 BMI result Body Mass Index 32.5 Const: Other: General:awake aler, oriented to self and Plce, no distress at all Resp: sandhya rhonchi, no accessory muslce use CVS: S1,S2,iregular iregular GI: +BS, NT, no distention, trace edema Skin: No rash Neuro: motor grossly intact Psych: appropriate affect DS: Data Data Completed and Pending Completed studies during hospitalization [Text1]: Procedures Reposition Right Upper Femur with Intramedullary Internal Fixation Device, Percutaneous Approach (07/03/20) Transfusion of Nonautologous Red Blood Cells into Peripheral Vein, Percutaneous Approach (07/03/20) Discharge Plan Discharge Anticipated Discharge Date/Time: 01/17/23 09:22 Patient Disposition: Xfer LTC Discharge Diagnosis: Acute hypoxic respiratory failure, copd, pneumonia, heart failure Referrals: [facility] [place] [Outside] - 1 Week Ramón Ortega MD [Primary Care Provider] - 1 Week Discharge Medications: New furosemide 40 mg Tablet 40 mg PO DAILY Qty: 30 0RF Protocol: Hold for SBP< HOLD for SBP < : 90 docusate sodium 100 mg Capsule 100 mg PO BID Qty: 60 0RF polyethylene glycol 3350 17 gram Powder In Packet 17 g PO DAILY PRN (Reason: Constipation) Qty: 30 0RF Continued PreserVision AREDS 7,160 unit- 113 mg-100 unit Tablet 1 tab PO BID cholecalciferol (vitamin D3) [Vitamin D3] 125 mcg (5,000 unit) Tablet 250 mcg PO DAILY latanoprost 0.005 % Drops 1 drp ophthalmic (eye) BEDTIME Rx Instructions: BOTH EYES acetaminophen 325 mg Tablet 650 mg PO Q6H PRN (Reason: pain/ fever) mirtazapine 15 mg tablet 7.5 mg PO BEDTIME metoprolol succinate 50 mg tablet extended release 24 hr 50 mg PO DAILY potassium chloride [K-Tab] 10 mEq tablet extended release 10 meq PO DAILY hydrochlorothiazide 25 mg Tablet 25 mg PO DAILY escitalopram oxalate 5 mg tablet 5 mg PO DAILY amlodipine 10 mg Tablet 10 mg PO DAILY cyanocobalamin (vitamin B-12) 1,000 mcg Tablet 2,000 mcg PO DAILY magnesium oxide 400 mg magnesium Tablet 400 mg PO DAILY albuterol sulfate [ProAir HFA] 90 mcg/actuation Hfa Aerosol Inhaler 2 puff INHALATION Q4H PRN (Reason: Wheezing) prednisone 20 mg tablet 20 mg PO DAILY Rx Instructions: Started 12/31/22, give for 10 days guaifenesin 100 mg/5 mL Liquid 200 mg PO Q4H PRN (Reason: Cough) atorvastatin 80 mg tablet 80 mg PO BEDTIME ezetimibe 10 mg tablet 10 mg PO DAILY folic acid 1 mg tablet 1 mg PO DAILY Discontinued amoxicillin-pot clavulanate [Augmentin] 875-125 mg Tablet 1 tab PO BID Rx Instructions: order from 01/03/23 through 01/12/23 Discharge Orders: Discharge Order (Routine); Ordered 01/17/23 Ordered By: Oneil Schilling Diet: Advance to usual diet Activity on Discharge: As tolerated Stand Alone Forms: Patient Portal Discharge page Care Plan Goals: recovery from respiratory, copd, pneumonia and heart failure Health Concerns: respiratory failure copd pneumonia heart failure Plan of Treatment: Use oxygen to maintain oxygen saturation of about 92 % take Lasix for heart failure use inhalers for copd Assessment: as above
--- NOTE | 2023-01-17 10:46 | MHC.CM.PN ---
Patient has been medically cleared for dc to return to [facility] today at 3 PM, via [facility]. ZEN spoke with Quan from the [facility] @ [phone] and faxed the dc summary to Quan @ [phone]. ZEN left a detailed message for /Michelle @ [phone], informing her of the dc plan. IMM was addressed with Patient;original was given to him and a copy has been placed on the chart.
[2023-01-17 11:37] VITALS: BP 133/69; PULSE 68; RESP 18; TEMP 36.6; O2SAT 90
[2023-01-17 14:53] VITALS: BP 118/59; PULSE 63; RESP 20; TEMP 36.4; O2SAT 91
== END 2023-01-17 15:27 | DRG 190 ==
LOC: HO.ED 22:26 → HO.EDOVER 01-04 00:53 → HO.S3 01-04 07:55 → HO.IMC 01-09 22:14
PROVIDERS: Admitting Provider Student in an Organized Health Care Education/Training Program; Emergency Provider Emergency Medicine; PCP Internal Medicine Medical Oncology; Visit Provider Internal Medicine
DX: J44.0 Chronic obstructive pulmonary disease with (acute) lower respiratory infection (principal); G93.41 Metabolic encephalopathy; J96.01 Acute respiratory failure with hypoxia; N17.0 Acute kidney failure with tubular necrosis; I50.31 Acute diastolic (congestive) heart failure; J18.9 Pneumonia, unspecified organism; J96.02 Acute respiratory failure with hypercapnia; F05 Delirium due to known physiological condition; N39.0 Urinary tract infection, site not specified; J98.11 Atelectasis; I13.0 Hypertensive heart and chronic kidney disease with heart failure and stage 1 through stage 4 chronic kidney disease, or unspecified chronic kidney disease; E87.21 Acute metabolic acidosis; J44.1 Chronic obstructive pulmonary disease with (acute) exacerbation; Z66 Do not resuscitate; E78.2 Mixed hyperlipidemia; I35.0 Nonrheumatic aortic (valve) stenosis; F39 Unspecified mood [affective] disorder; N18.30 Chronic kidney disease, stage 3 unspecified; I48.91 Unspecified atrial fibrillation; I25.10 Atherosclerotic heart disease of native coronary artery without angina pectoris; Z20.822 Contact with and (suspected) exposure to COVID-19; Z79.899 Other long term (current) drug therapy
CPT/HCPCS: 36415; 36600; 71045; 71250; 80048; 81001; 82803; 83605; 83880; 84484; 85025; 85027; 87040; 87086; 87088; 87186; 87502; 87635; 92950; 93005; 93306; 94640; 94660; 99285; J0456; J0696; J1650; J1940; J2270; J2543; J2920; J2930

== ENCOUNTER → 2023-01-03 22:10 | Outpatient (BNV) | payer OTHER, MEDICAID, SELFPAY | PROVIDERS: Emergency Provider Emergency Medicine; PCP Internal Medicine Medical Oncology; Visit Provider Student in an Organized Health Care Education/Training Program | DX: J96.01 Acute respiratory failure with hypoxia (principal); J96.02 Acute respiratory failure with hypercapnia; T17.500A Unspecified foreign body in bronchus causing asphyxiation, initial encounter | CPT/HCPCS: 99222; 99232; 99233; 99239 ==

== ENCOUNTER 2023-01-03 22:34 | Outpatient (BNV) | payer OTHER, MEDICAID, SELFPAY | END 2023-01-11 07:00 | PROVIDERS: Admitting Provider Student in an Organized Health Care Education/Training Program; Emergency Provider Emergency Medicine; PCP Internal Medicine Medical Oncology; Visit Provider Internal Medicine | DX: I35.0 Nonrheumatic aortic (valve) stenosis (principal) | CPT/HCPCS: 93306 ==

== ENCOUNTER → 2023-01-03 22:34 | Outpatient (BNV) | payer OTHER, MEDICAID, SELFPAY | PROVIDERS: Admitting Provider Student in an Organized Health Care Education/Training Program; Emergency Provider Emergency Medicine; PCP Internal Medicine Medical Oncology; Visit Provider Internal Medicine | DX: J96.00 Acute respiratory failure, unspecified whether with hypoxia or hypercapnia (principal); J44.1 Chronic obstructive pulmonary disease with (acute) exacerbation; I35.0 Nonrheumatic aortic (valve) stenosis | CPT/HCPCS: 99223 ==

== ENCOUNTER → 2023-01-03 22:34 | Outpatient (BNV) | payer OTHER, MEDICAID, SELFPAY | PROVIDERS: Admitting Provider Student in an Organized Health Care Education/Training Program; Emergency Provider Emergency Medicine; PCP Internal Medicine Medical Oncology; Visit Provider Internal Medicine | DX: J18.9 Pneumonia, unspecified organism (principal); J44.1 Chronic obstructive pulmonary disease with (acute) exacerbation; J98.11 Atelectasis; J96.91 Respiratory failure, unspecified with hypoxia; J96.92 Respiratory failure, unspecified with hypercapnia; T17.500A Unspecified foreign body in bronchus causing asphyxiation, initial encounter | CPT/HCPCS: 99222; 99233 ==

== ENCOUNTER → 2023-03-09 11:07 | Outpatient (AMB) | payer MEDICARE, MEDICAID, SELFPAY ==
--- NOTE | 2023-03-09 11:07 | MHC.OFFVIS ---
Intake Intake Visit Reasons: SP tube change? Follow up Intake Note: Patient presents for SP tube change [place] Required: No Allergies lisinopril Allergy (Verified 03/09/23 11:09) Unknown [facility] Medical History (Updated 01/25/23 @ 00:02 by Pham Hawthorne) Mucus plugging of bronchi Respiratory failure with hypoxia and hypercapnia Atelectasis of left lung BPH (benign prostatic hyperplasia) Frequent falls On beta priscilla at home Overweight (BMI 25.0-29.9) Depression Urothelial carcinoma of bladder Vitamin B12 deficiency Vitamin D deficiency GERD without esophagitis Anemia Primary osteoarthritis, right shoulder Osteoarthritis of both knees Chronic kidney disease, stage III (moderate) Impaired fasting glucose Elevated liver enzymes Subdural hematoma Benign essential hypertension Pure hypercholesterolemia Coronary artery disease Surgical History History of tonsillectomy History of transurethral resection of bladder tumor (TURBT) History of hip surgery History of transurethral resection of prostate History of shoulder surgery Family History Father CVD (cardiovascular disease) Mother Hypertension Social History Household Members: Other Housing: Alf Housing Other:: [facility] Are you a primary grounds caretaker to a significant other at home: No Do you presently have visiting nurse or other home services: No Alcohol intake: never Patient Tobacco Use Status: Former Tobacco user Advance Directives Date on File: 06/29/20 service: Yes Coding
--- NOTE | 2023-03-09 11:18 | A.OFFVIS_ITS ---
Intake Intake Visit Reasons: SP tube change? Follow up Intake Note: Patient presents for follow up Manufacturing Intern Required: No Allergies lisinopril Allergy (Verified 03/09/23 21:40) Unknown Medication List - Last Reconciled 03/09/23 by DAWSON Martinez acetaminophen 650 mg PO Q6H PRN albuterol sulfate 90 mcg/actuation (ProAir HFA) 2 puffs inhalation Q4H PRN amlodipine 10 mg PO DAILY apixaban (Eliquis) 2.5 mg PO BID ascorbic acid (vitamin C) 500 mg PO DAILY atorvastatin 80 mg PO BEDTIME cholecalciferol (vitamin D3) (Vitamin D3) 250 mcg PO DAILY cyanocobalamin (vitamin B-12) 2,000 mcg PO DAILY docusate sodium 100 mg PO BID escitalopram oxalate 5 mg PO DAILY ezetimibe 10 mg PO DAILY folic acid 1 mg PO DAILY furosemide 40 mg See Protocol PO DAILY guaifenesin 200 mg PO Q4H PRN hydrochlorothiazide 25 mg PO DAILY latanoprost 0.005% 1 drp ophthalmic (eye) BEDTIME magnesium oxide 400 mg PO DAILY methenamine hippurate 1 g PO DAILY metoprolol succinate ER 50 mg PO DAILY mirtazapine 7.5 mg PO BEDTIME polyethylene glycol 3350 17 grams PO DAILY PRN potassium chloride ER (K-Tab) 10 mEq PO DAILY [prednisone 20 mg PO DAILY] vitamins A,C,C-nbxu-sdbwhx 2,148 mcg-113 mg-45 mg-17.4mg (PreserVision AREDS) 1 tab PO BID HPI HPI Comments History of Present Illness Details Maik Beckwith is a pleasantly confused 87-year-old male patient [facility] He has a past medical history of respiratory failure, BPH, frequent falls, overweight, depression, bladder cancer, vitamin B12 deficiency, vitamin-D deficiency, GERD, anemia, osteoarthritis, chronic kidney disease stage 3, elevated liver enzymes, subdural hematoma, hypertension, hypercholesteremia, and coronary artery disease. He is being follow-up on today for his history of bladder cancer, BPH, and urinary retention. In discussion with the patient today he reports to be doing and feeling well. Of note, patient underwent suprapubic tube placement with Dr. Chauncey Garber of this year. Staff report patient had his suprapubic tube changed yesterday 03/08 with no issues or concerns. When asked he currently denies any bothersome urinary issues or concerns. At times throughout today's assessment patient was reminded that his suprapubic tube and bladder cancer are 2 different diagnosis's. Discussed at length his history of bladder cancer with initial resection May of 2016. His last in office cystoscopy was June of this year with Dr. Grossman noting no abnormalities detected. Discussed near future follow- up in office for cystoscopy. All questions were answered. The patient is in agreement with plan of care. He otherwise offers no issues or concerns at this time. Previous Urology Notes: Bladder cancer Initial resection May 2016 Cystoscopy - 07/18 NAD Lower urinary tract symptoms Urinary retention September 2020 Associated with orthopedic procedure Medications tamsulosin PSA 11/16 1.9 Cystoscopy 07/17 large median lobe otherwise normal Failed voiding trial SPT placement 08/17 [facility] Medical History Mucus plugging of bronchi Respiratory failure with hypoxia and hypercapnia Atelectasis of left lung BPH (benign prostatic hyperplasia) Frequent falls On beta priscilla at home Overweight (BMI 25.0-29.9) Depression Urothelial carcinoma of bladder Vitamin B12 deficiency Vitamin D deficiency GERD without esophagitis Anemia Primary osteoarthritis, right shoulder Osteoarthritis of both knees Chronic kidney disease, stage III (moderate) Impaired fasting glucose Elevated liver enzymes Subdural hematoma Benign essential hypertension Pure hypercholesterolemia Coronary artery disease Surgical History History of tonsillectomy History of transurethral resection of bladder tumor (TURBT) History of hip surgery History of transurethral resection of prostate History of shoulder surgery Family History Father CVD (cardiovascular disease) Mother Hypertension Social History Household Members: Other Housing: Alf Housing Other:: [facility] Are you a primary associate director career services to a significant other at home: No Do you presently have visiting nurse or other home services: No Alcohol intake: never Patient Tobacco Use Status: Former Tobacco user Advance Directives Date on File: 06/29/20 service: Yes Review of Systems Const Reports as per HPI Eyes Reports no additional complaints ENT Reports no additional complaints Card Reports as per [facility] Resp Reports as per [facility] GI Reports as per [facility] Reports as per [facility] Musc Reports as per [facility] Neuro Reports as per [facility] Psych Reports as per [facility] Endo Reports as per [facility] Physical Exam Const General: cooperative, healthy appearing, comfortable, no acute distress, well developed, alert and awake Nutritional Appearance: overweight Orientation/consciousness: oriented to person Limitations: wheelchair HEENT Head: Yes normal to inspection Eyes General: appearance normal, both eyes and all related structures Neck Neck: Yes normal visual inspection and Yes trachea midline Chest Chest palpation & inspection: normal inspection of the chest Resp Effort & Inspection: normal respiratory effort and able to speak in complete sentences Cardio Rate: regular rate GI Inspection: Yes normal to inspection General: Yes deferred Neuro General: oriented to person Extrem General: Yes normal to inspection Psych Appearance: grossly normal and well kempt Speech and movement: Clear speech present Affect: normal affect Attitude: cooperative Thought content: Normal thought content present Insight: Limited insight present (Psych) Judgement: Limited judgement present (Psych) Assessment & Plan Assessment & Plan (1) Urinary retention with incomplete bladder emptying: Code(s): R33.9 - Retention of urine, unspecified (2) BPH w urinary obs/LUTS: Code(s): N40.1 - Benign prostatic hyperplasia with lower urinary tract symptoms; N13.8 - Other obstructive and reflux uropathy (3) Urothelial carcinoma of bladder: Code(s): C67.9 - Malignant neoplasm of bladder, unspecified Plan Suprapubic tube site well healed with no redness, drainage, and or odor noted Continue changing suprapubic tube every 6 weeks as planned; or sooner as needed Continue methenamine and vitamin-C as prescribed. Continue utilizing flip flow throughout the day and urinary bag at HS Follow-up in 4-6 months in office for cystoscopy; given patient's longstanding history of bladder cancer; or sooner with any issues, concerns, and or questions. Patient Instructions: The patient had an opportunity to ask questions regarding the treatment plan. All questions were answered. Physical exam, labs, and imaging were discussed and reviewed in detail. As well as risks, benefits, and discussion of treatment choices. No major barriers to understanding were identified. The patient expressed understanding and agreement with the above treatment plan. The patient was made aware they should contact our office by phone for worsening of their current condition, the appearance of new symptoms, or with any questions or concerns. Compliance is encouraged with any medications and follow up testing that is ordered. It is a privilege to be allowed the opportunity to participate in? your urological care.? Again, if you have any questions or concerns If you have any questions or concerns please do not hesitate to contact me. The office is [phone]. This note is constructed using voice recognition software. While every effort has been made to ensure accuracy sales trader errors may have been included. Yours sincerely, DAWSON Martinez Coding Level of Care Code [id number] Fac sub, low Diagnoses Urinary retention with incomplete bladder emptying R33.9 BPH w urinary obs/LUTS N40.1; N13.8 Urothelial carcinoma of bladder C67.9 Time Spent (min) 20
== END ==
PROVIDERS: PCP Internal Medicine Medical Oncology; Referring Provider Internal Medicine Medical Oncology; Visit Provider Nurse Practitioner Family
DX: R33.9 Retention of urine, unspecified (principal); N40.1 Benign prostatic hyperplasia with lower urinary tract symptoms; N13.8 Other obstructive and reflux uropathy; C67.9 Malignant neoplasm of bladder, unspecified
CPT/HCPCS: 99308

== ENCOUNTER 2023-04-18 05:05 | Outpatient (REF) | payer MEDICARE, MEDICAID, SELFPAY ==
[2023-04-18 06:45] LABS: MANUAL DIFF FLAG NO
[2023-04-18 07:04] LABS: Basophils Absolute Auto 0.1 X10*3/uL (0.0-0.2); Basophils Percent Auto 0.9 % (0-2); Eosinophils Absolute Auto 0.3 X10*3/uL (0.0-0.4); Hematocrit 34.8 % (42.0-52.0); Hemoglobin 12.2 g/dl (14.0-18.0); Imm Gran Abs Auto 0.03 X10*3/uL (0.00-0.03); Imm Gran Pct Auto 0.4 % (0.0-0.4); Lymphocytes Absolute Auto 1.9 X10*3/uL (1.2-4.9); Lymphocytes Percent Auto 25.3 % (20-40); Mean Corpuscular HGB Conc 35.1 g/dl (31.0-36.0); Mean Corpuscular Hemoglobin 32.4 pg (27.0-33.0); Mean Corpuscular Volume 92.3 fL (80.0-98.0); Mean Platelet Volume 10.3 fL (9.4-12.4); Monocytes Percent Auto 12.7 % (2-11); Neutrophils Absolute Auto 4.3 x10*3/uL (2.0-8.3); Neutrophils Percent Auto 56.7 % (45-73); Platelet Count 165 X10*3/uL (160-400); Red Blood Count 3.77 X10*6/uL (4.60-5.80); Red Cell Distribution Width 12.6 % (11.0-16.0); White Blood Count 7.7 X10*3/uL (4.8-10.8)
[2023-04-18 07:11] LABS: Creatinine Urine 67.03 mg/dL; Microalbum/Creatinine Ratio Ur 337.1 ug/mg cr (<30); Total Protein Urine Random 47 mg/dL (<12)
[2023-04-18 07:16] LABS: Parathyroid Hormone Intact 151.9 pg/mL (8.7-77.1)
[2023-04-18 07:30] LABS: Alanine Aminotransferase 14 U/L (0-40); Albumin Level 3.6 g/dL (3.5-5.0); Alkaline Phosphatase 31 U/L (39-117); Anion Gap 13 (12-20); Aspartate Amino Transferase 16 U/L (5-37); Bilirubin Total 0.6 mg/dL (0.0-1.0); Blood Urea Nitrogen 27 mg/dL (9-16); Calcium 9.2 mg/dL (8.4-10.2); Carbon Dioxide 30 mmol/L (22-29); Chloride 102 mmol/L (96-108); Estimated Glomerular Filt Rate 46; Glucose Random 97 mg/dL (60-115); Sodium 142 mmol/L (135-145); Total Protein 6.2 g/dL (6.5-8.0); Uric Acid 11.2 mg/dL (3.4-7.0)
[2023-04-18 08:20] LABS: Potassium 2.8 mmol/L (3.3-5.1)
== END 2023-04-18 05:06 | disposition home or self-care (01) ==
LOC: HO.HSH3E 05:05
PROVIDERS: Visit Provider Internal Medicine Medical Oncology
DX: Z85.51 Personal history of malignant neoplasm of bladder (principal)
CPT/HCPCS: 36415; 80053; 82043; 82306; 82570; 83970; 84156; 84550; 85025

== ENCOUNTER 2023-04-19 05:15 | Outpatient (REF) | payer MEDICARE, MEDICAID, SELFPAY ==
[2023-04-19 06:48] LABS: Anion Gap 12 (12-20); Carbon Dioxide 28 mmol/L (22-29); Chloride 104 mmol/L (96-108); Potassium 3.2 mmol/L (3.3-5.1); Sodium 141 mmol/L (135-145)
== END 2023-04-19 05:16 | disposition home or self-care (01) ==
LOC: HO.HSH3E 05:15
PROVIDERS: Visit Provider Internal Medicine Medical Oncology
DX: C67.9 Malignant neoplasm of bladder, unspecified (principal)
CPT/HCPCS: 36415; 80051

== ENCOUNTER 2023-05-13 14:55 | Outpatient (REF) | payer MEDICARE, MEDICAID, SELFPAY | END 2023-05-13 14:56 | disposition home or self-care (01) | LOC: HO.HSH3E 14:55 | PROVIDERS: Visit Provider Internal Medicine Medical Oncology | DX: J02.9 Acute pharyngitis, unspecified (principal) | CPT/HCPCS: 87070 ==

== ENCOUNTER 2023-05-15 14:41 | Outpatient (REF) | payer MEDICARE, MEDICAID, SELFPAY ==
[2023-05-15 14:53] LABS: Appearance Urine Cloudy; Color Urine BROWN; Glucose Urine UA Negative (Negative); Leukocyte Esterase Urine Trace (Negative); Nitrite Urine Positive (Negative); Specific Gravity - Urine 1.025 (1.005-1.025); UMIC TRIGGER UACC YES; Urine Blood Large (3+) (Negative); Urine Ketones Negative (Negative); Urine Protein 300 (3+) mg/dL (Neg-Trace)
[2023-05-15 15:10] LABS: Bacteria Urine Trace (None Seen); Hyaline Casts Urine 0-2 /LPF (0-2); RBC Urine >20 /HPF (0-2); UACC Culture Trigger YES; WBC Urine >50 /HPF (0-5)
== END 2023-05-15 14:42 | disposition home or self-care (01) ==
LOC: HO.HSH3E 14:41
PROVIDERS: Visit Provider Internal Medicine Endocrinology, Diabetes & Metabolism
DX: N19 Unspecified kidney failure (principal)
CPT/HCPCS: 81001; 87086

== ENCOUNTER 2023-05-16 04:47 | Outpatient (REF) | payer MEDICARE, MEDICAID, SELFPAY ==
[2023-05-16 05:59] LABS: Basophils Absolute Auto 0.1 X10*3/uL (0.0-0.2); Basophils Percent Auto 0.6 % (0-2); Eosinophils Absolute Auto 0.4 X10*3/uL (0.0-0.4); Eosinophils Percent Auto 4.4 % (0-4); Hematocrit 33.7 % (42.0-52.0); Hemoglobin 11.4 g/dl (14.0-18.0); Imm Gran Abs Auto 0.05 X10*3/uL (0.00-0.03); Imm Gran Pct Auto 0.6 % (0.0-0.4); Lymphocytes Absolute Auto 1.1 X10*3/uL (1.2-4.9); Lymphocytes Percent Auto 14.4 % (20-40); MANUAL DIFF FLAG SCAN; Mean Corpuscular HGB Conc 33.8 g/dl (31.0-36.0); Mean Corpuscular Hemoglobin 32.5 pg (27.0-33.0); Mean Platelet Volume 10.2 fL (9.4-12.4); Monocytes Absolute Auto 1.6 X10*3/uL (0.1-1.2); Monocytes Percent Auto 20.5 % (2-11); Neutrophils Absolute Auto 4.7 x10*3/uL (2.0-8.3); Neutrophils Percent Auto 59.5 % (45-73); Platelet Count 132 X10*3/uL (160-400); Red Blood Count 3.51 X10*6/uL (4.60-5.80); Red Cell Distribution Width 12.4 % (11.0-16.0); SCAN SMEAR FLAG 1; White Blood Count 7.9 X10*3/uL (4.8-10.8)
[2023-05-16 06:57] LABS: SLIDE REVIEW VERIFIED
== END 2023-05-16 04:48 | disposition home or self-care (01) ==
LOC: HO.HSH3E 04:47
PROVIDERS: Visit Provider Internal Medicine Endocrinology, Diabetes & Metabolism
DX: N19 Unspecified kidney failure (principal); C67.9 Malignant neoplasm of bladder, unspecified
CPT/HCPCS: 36415; 85025

== ENCOUNTER 2023-05-18 15:27 | Outpatient (REF) | payer MEDICARE, MEDICAID, SELFPAY ==
[2023-05-18 15:45] LABS: Appearance Urine Clear; Color Urine Yellow; Glucose Urine UA Negative (Negative); Leukocyte Esterase Urine Moderate (2+) (Negative); Nitrite Urine Positive (Negative); UMIC TRIGGER UA YES; Urine Blood Small (1+) (Negative); Urine Ketones Negative (Negative); Urine Protein Negative (Neg-Trace)
[2023-05-18 16:08] LABS: Bacteria Urine 4+ (None Seen); Hyaline Casts Urine 0-2 /LPF (0-2); RBC Urine 0-2 /HPF (0-2); Squamous Epithelial Cell Urine 0-2 /HPF (0-2); WBC Urine 21-50 /HPF (0-5)
[2023-05-18 16:09] LABS: Total Protein Urine Random 11 mg/dL (<12)
== END 2023-05-18 15:28 | disposition home or self-care (01) ==
LOC: HO.HSH3W 15:27
PROVIDERS: Visit Provider Internal Medicine Medical Oncology
DX: N18.30 Chronic kidney disease, stage 3 unspecified (principal); R52 Pain, unspecified
CPT/HCPCS: 81001; 84156

== ENCOUNTER 2023-05-19 05:03 | Outpatient (REF) | payer MEDICARE, MEDICAID, SELFPAY ==
[2023-05-19 06:15] LABS: Anion Gap 13 (12-20); Blood Urea Nitrogen 20 mg/dL (9-16); Calcium 8.8 mg/dL (8.4-10.2); Carbon Dioxide 26 mmol/L (22-29); Chloride 107 mmol/L (96-108); Estimated Glomerular Filt Rate 59; Potassium 3.7 mmol/L (3.3-5.1); Sodium 142 mmol/L (135-145); Uric Acid 7.4 mg/dL (3.4-7.0)
[2023-05-19 06:22] LABS: Parathyroid Hormone Intact 94.3 pg/mL (8.7-77.1)
[2023-05-19 06:30] LABS: Vitamin D 25-OH Total 43.3 ng/mL (>30)
== END 2023-05-19 05:04 | disposition home or self-care (01) ==
LOC: HO.HSH3E 05:03
PROVIDERS: Visit Provider Internal Medicine Medical Oncology
DX: N18.30 Chronic kidney disease, stage 3 unspecified (principal)
CPT/HCPCS: 36415; 80051; 82306; 82310; 82565; 83970; 84520; 84550

== ENCOUNTER 2023-06-15 06:28 | Outpatient (REF) | payer MEDICARE, MEDICAID, SELFPAY ==
[2023-06-15 06:32] LABS: MANUAL DIFF FLAG NO
[2023-06-15 06:39] LABS: Basophils Absolute Auto 0.1 X10*3/uL (0.0-0.2); Basophils Percent Auto 0.7 % (0-2); Eosinophils Absolute Auto 0.4 X10*3/uL (0.0-0.4); Eosinophils Percent Auto 5.7 % (0-4); Hematocrit 33.1 % (42.0-52.0); Hemoglobin 11.5 g/dl (14.0-18.0); Imm Gran Abs Auto 0.03 X10*3/uL (0.00-0.03); Imm Gran Pct Auto 0.4 % (0.0-0.4); Lymphocytes Absolute Auto 1.8 X10*3/uL (1.2-4.9); Mean Corpuscular HGB Conc 34.7 g/dl (31.0-36.0); Mean Corpuscular Hemoglobin 32.2 pg (27.0-33.0); Mean Corpuscular Volume 92.7 fL (80.0-98.0); Mean Platelet Volume 10.7 fL (9.4-12.4); Monocytes Absolute Auto 0.9 X10*3/uL (0.1-1.2); Monocytes Percent Auto 12.8 % (2-11); Neutrophils Percent Auto 55.4 % (45-73); Platelet Count 124 X10*3/uL (160-400); Red Blood Count 3.57 X10*6/uL (4.60-5.80); Red Cell Distribution Width 12.6 % (11.0-16.0); White Blood Count 7.2 X10*3/uL (4.8-10.8)
[2023-06-15 06:44] LABS: INTERNATIONAL NORM RATIO 1.2 (0.9-1.1)
[2023-06-15 06:46] LABS: Partial Thromboplastin Time 39.3 SEC (26.0-36.8)
== END 2023-06-15 06:29 | disposition home or self-care (01) ==
LOC: HO.HSH3E 06:28
PROVIDERS: Visit Provider Internal Medicine Medical Oncology
DX: R31.9 Hematuria, unspecified (principal)
CPT/HCPCS: 36415; 85025; 85610; 85730

== ENCOUNTER 2023-06-21 16:43 | Outpatient (REF) | payer MEDICARE, MEDICAID, SELFPAY ==
[2023-06-21 17:58] LABS: Influenza A PCR NEGATIVE (Negative); Influenza B PCR NEGATIVE (Negative); Resp Syncy Virus RNA Qual PCR NEGATIVE (Negative); SARS COV2 PCR INHOUSE NEGATIVE (Negative)
== END 2023-06-21 16:44 | disposition home or self-care (01) ==
LOC: HO.HSH3E 16:43
PROVIDERS: Visit Provider Internal Medicine
DX: R05.9 Cough, unspecified (principal); R09.89 Other specified symptoms and signs involving the circulatory and respiratory systems
CPT/HCPCS: 0241U

== ENCOUNTER 2023-06-24 09:51 | Outpatient (REF) | payer MEDICARE, MEDICAID, SELFPAY ==
[2023-06-24 11:08] LABS: Appearance Urine Clear; Color Urine Yellow; Glucose Urine UA Negative (Negative); Leukocyte Esterase Urine Moderate (2+) (Negative); Nitrite Urine Negative (Negative); UMIC TRIGGER UA YES; Urine Blood Large (3+) (Negative); Urine Ketones Negative (Negative); Urine Protein Trace mg/dL (Neg-Trace)
[2023-06-24 11:14] LABS: Bacteria Urine Trace (None Seen); Hyaline Casts Urine 0-2 /LPF (0-2); RBC Urine >20 /HPF (0-2); Squamous Epithelial Cell Urine 0-2 /HPF (0-2); WBC Urine >50 /HPF (0-5)
== END 2023-06-24 09:52 | disposition home or self-care (01) ==
LOC: HO.HSH3E 09:51
PROVIDERS: Visit Provider Internal Medicine Medical Oncology
DX: N39.0 Urinary tract infection, site not specified (principal); R31.9 Hematuria, unspecified
CPT/HCPCS: 81001; 81003; 87086; 87088; 87186

== ENCOUNTER 2023-06-27 21:39 | Outpatient (REF) | payer MEDICARE, MEDICAID, SELFPAY ==
[2023-06-27 21:48] LABS: Appearance Urine Cloudy; Color Urine Yellow; Glucose Urine UA Negative (Negative); Leukocyte Esterase Urine Small (1+) (Negative); Nitrite Urine Negative (Negative); PH 5.5 (5.0-9.0); UMIC TRIGGER UACC YES; Urine Blood Large (3+) (Negative); Urine Ketones Negative (Negative); Urine Protein 30 (1+) mg/dL (Neg-Trace)
[2023-06-27 21:57] LABS: Bacteria Urine None Seen (None Seen); Hyaline Casts Urine 0-2 /LPF (0-2); RBC Urine >20 /HPF (0-2); UACC Culture Trigger YES; WBC Urine 21-50 /HPF (0-5)
== END 2023-06-27 21:40 | disposition home or self-care (01) ==
LOC: HO.HSH3E 21:39
PROVIDERS: Visit Provider Internal Medicine Medical Oncology
DX: N39.0 Urinary tract infection, site not specified (principal); R31.9 Hematuria, unspecified
CPT/HCPCS: 81001; 87086

== ENCOUNTER 2023-08-19 12:36 | Outpatient (AMB) | payer MEDICARE, MEDICAID, SELFPAY ==
--- NOTE | 2023-08-19 13:00 | A.OFFVIS_ITS ---
Intake Visit Reasons: Cysto Intake Note: Patient presents today for a CYSTOSCOPY Procedure: Meds: None Allergies to Antibiotic: No Known Allergies Blood Thinner: Eliquis Disposable Uro-G HD Cystoscope Cannula: Lot: [id number] Exp: 01/20/2027 Business Development Representative Required: No Accompanied by: [place] [employer]ven Tender Allergies lisinopril Allergy (Verified 03/09/23 21:40) Unknown HPI Comments Details: Tang is a pleasant male. He is a patient of Dr. Christine. He seen for the following urologic conditions - bladder cancer - BPH A suprapubic stable Cystoscopy performed stable Bladder cancer Initial resection May 2016 Cystoscopy - 07/18 NAD Lower urinary tract symptoms Urinary retention September 2020 Associated with orthopedic procedure Medications tamsulosin PSA 11/16 1.9 Cystoscopy 07/17 large median lobe otherwise normal Failed voiding trial PFSH Medical History Mucus plugging of bronchi Respiratory failure with hypoxia and hypercapnia Atelectasis of left lung BPH (benign prostatic hyperplasia) Frequent falls On beta priscilla at home Overweight (BMI 25.0-29.9) Depression Urothelial carcinoma of bladder Vitamin B12 deficiency Vitamin D deficiency GERD without esophagitis Anemia Primary osteoarthritis, right shoulder Osteoarthritis of both knees Chronic kidney disease, stage III (moderate) Impaired fasting glucose Elevated liver enzymes Subdural hematoma Benign essential hypertension Pure hypercholesterolemia Coronary artery disease Surgical History History of tonsillectomy History of transurethral resection of bladder tumor (TURBT) History of hip surgery History of transurethral resection of prostate History of shoulder surgery Family History Father CVD (cardiovascular disease) Mother Hypertension Social History Household Members: Other Housing: Long Term Housing Other:: [facility] Are you a primary residential care facility manager to a significant other at home: No Do you presently have visiting nurse or other home services: No Alcohol intake: never Patient Tobacco Use Status: Former Tobacco user Advance Directives Date on File: 06/29/20 service: Yes Review of Systems Const Denies chills and Denies fever(s) Card Reports no additional complaints and Denies syncope Resp Denies cough GI Denies abdominal pain and Denies heartburn Reports as per HPI and Denies change in libido Neuro Denies syncope Psych Denies change in libido Endo Denies change in libido Physical Exam Const General: cooperative, healthy appearing, comfortable and no acute distress Orientation/consciousness: patient oriented x3 HEENT Face and sinus: Yes normal facial exam Mouth: moist mucous membranes Neck Neck: Yes normal visual inspection, Yes full ROM and Yes trachea midline Chest Chest palpation & inspection: normal inspection of the chest Resp Effort & Inspection: normal respiratory effort, able to speak in complete sentences and no respiratory distress GI Inspection: Yes normal to inspection Back/Spine/Pelvis Cervical Spine: normal cervical lordosis Thoracic/Lumbar Spine: thoracic and lumbar spine normal to inspection Skin General skin exam: no rashes or lesions noted Neuro General: patient oriented x3, gait normal, tone normal and moves all extremities Extrem General: Yes normal to inspection and Yes capillary refill normal Office Procedures Cystoscopy Consent Discussed risk and benefit or proposed procedure with the patient. Information consent for procedure given to the patient. Discussed technical aspects, risks, benefits and alternatives in full. Addressed all of the patient's questions and concerns regarding the procedure. The patient demonstrated knowledge and understanding. They wish to proceed with this procedure. Preparation The patient was prepped in the usual manner. A college counselor was present and in the room. Genitalia was prepped with betadine solution in a sterile manner. Lidocaine Jelly 2% was placed into the urethra and 16Fr flexible Olympus cystoscope was inserted into the meatus after adequate lubrication. Procedure Cystoscopy performed using a disposable Urovue digital 16 Portuguese cystoscope. Meatus normal position Urethra anterior and posterior urethra normal Prostatic Urethra unremarkable Bladder examination with retroflexion of cystoscope Bladder Orifices normal shape and position Bladder Capacity medium Trabeculations grade 1 Cellule Formation - Diverticulum Formation - Mucosal Erythema - Bladder Tumor - [id number] DISPOSABLE SCOPE URO-G FLEXIBLE SCOPE Procedure code (CPT) selection complete Office Meds lidocaine HCl 2 % mucosal jelly in applicator Performing Provider: Dewey Grossman MD Performing Location: [facility] Administered by: Trina Boyle RN on 08/19/23 13:12 Dose Route Admin Location Dispensed Lot Number Expiration Date NDC Employment Training Specialist 10 mL intra-urethral 10 mL nitrofurantoin monohydrate/macrocrystals 100 mg capsule Performing Provider: Dewey Grossman MD Performing Location: [facility] Administered by: Trina Boyle RN on 08/19/23 13:12 Dose Route Admin Location Dispensed Lot Number Expiration Date NDC Employment Training Specialist 100 mg PO 1 cap naproxen 500 mg tablet Performing Provider: Dewey Grossman MD Performing Location: [facility] Administered by: Trina Boyle RN on 08/19/23 13:12 Dose Route Admin Location Dispensed Lot Number Expiration Date NDC Employment Training Specialist 500 mg PO 1 tab Assessment & Plan Assessment & Plan (1) BPH w urinary obs/LUTS: Code(s): N40.1 - Benign prostatic hyperplasia with lower urinary tract symptoms; N13.8 - Other obstructive and reflux uropathy Category: Medical (2) Urinary retention with incomplete bladder emptying: Code(s): R33.9 - Retention of urine, unspecified Category: Medical Plan Six-month follow-up renal ultrasound Orders: Orders AMB Cystoscopy 08/19/23 C67.9 - Malignant neoplasm of bladder, unspecified Patient Instructions: Imaging studies, laboratory and physical exam results were discussed and reviewed in detail. No major barriers to patient understanding were identified. An opportunity to ask questions regarding the treatment plan was provided. All questions were answered. The patient expressed understanding and agreement with the above treatment plan. The patient is aware they should contact our office by phone for worsening of their current condition or the appearance of new urologic symptoms. Compliance is encouraged with any medications and followup testing that is ordered. It is a privilege to participate in the urologic care of your patient. If you have any questions or concerns regarding treatment for the above conditions, or other urologic issues, please do not hesitate to contact me. The office tele phone contact is [phone]. This note is constructed using voice recognition software. While every effort has been made to ensure accuracy lpn rn errors may have been included. Yours sincerely, Dr Dewey Grossman MD, [facility] - Urology Providers of Expert, Compassionate Care for the Genitourinary System Coding Level of Care Code Est Pt Level 3 (51777) Diagnoses BPH w urinary obs/LUTS N40.1; N13.8 Urinary retention with incomplete bladder emptying R33.9 CPT Codes Cystoscopy - CPT: 31417-[id number] ([id number])
== END 2023-08-19 13:58 | disposition home or self-care (01) ==
PROVIDERS: PCP Internal Medicine Medical Oncology; Visit Provider Urology
DX: N40.1 Benign prostatic hyperplasia with lower urinary tract symptoms (principal); N13.8 Other obstructive and reflux uropathy; R33.9 Retention of urine, unspecified
CPT/HCPCS: 52000; 99213

== ENCOUNTER → 2023-08-19 12:36 | Outpatient (BNVA) | payer MEDICARE, MEDICAID, SELFPAY | PROVIDERS: PCP Internal Medicine Medical Oncology; Visit Provider Urology | DX: C67.9 Malignant neoplasm of bladder, unspecified (principal); N40.1 Benign prostatic hyperplasia with lower urinary tract symptoms; N13.8 Other obstructive and reflux uropathy; R33.8 Other retention of urine | CPT/HCPCS: 52000; 99212 ==

== ENCOUNTER 2023-09-07 06:01 | Outpatient (REF) | payer MEDICARE, MEDICAID, SELFPAY ==
[2023-09-07 06:06] LABS: MANUAL DIFF FLAG NO
[2023-09-07 06:44] LABS: INTERNATIONAL NORM RATIO 1.1 (0.9-1.1); Prothrombin Time 13.5 SEC (11.1-13.3)
[2023-09-07 06:47] LABS: Partial Thromboplastin Time 35.6 SEC (26.0-36.8)
[2023-09-07 06:55] LABS: Basophils Absolute Auto 0.1 X10*3/uL (0.0-0.2); Basophils Percent Auto 0.9 % (0-2); Eosinophils Absolute Auto 0.4 X10*3/uL (0.0-0.4); Eosinophils Percent Auto 5.2 % (0-4); Hematocrit 35.6 % (42.0-52.0); Hemoglobin 12.5 g/dl (14.0-18.0); Imm Gran Abs Auto 0.04 X10*3/uL (0.00-0.03); Imm Gran Pct Auto 0.5 % (0.0-0.4); Lymphocytes Absolute Auto 1.7 X10*3/uL (1.2-4.9); Lymphocytes Percent Auto 21.1 % (20-40); Mean Corpuscular HGB Conc 35.1 g/dl (31.0-36.0); Mean Corpuscular Hemoglobin 32.5 pg (27.0-33.0); Mean Corpuscular Volume 92.5 fL (80.0-98.0); Mean Platelet Volume 10.6 fL (9.4-12.4); Monocytes Percent Auto 12.7 % (2-11); Neutrophils Absolute Auto 4.9 x10*3/uL (2.0-8.3); Neutrophils Percent Auto 59.6 % (45-73); Platelet Count 147 X10*3/uL (160-400); Red Blood Count 3.85 X10*6/uL (4.60-5.80); White Blood Count 8.1 X10*3/uL (4.8-10.8)
[2023-09-07 07:05] LABS: Alanine Aminotransferase 11 U/L (0-40); Albumin Level 3.7 g/dL (3.5-5.0); Alkaline Phosphatase 38 U/L (39-117); Anion Gap 10 (12-20); Aspartate Amino Transferase 17 U/L (5-37); Bilirubin Total 0.7 mg/dL (0.0-1.0); Blood Urea Nitrogen 25 mg/dL (9-16); Calcium 9.4 mg/dL (8.4-10.2); Carbon Dioxide 26 mmol/L (22-29); Chloride 106 mmol/L (96-108); Estimated Glomerular Filt Rate 53; Glucose Random 88 mg/dL (60-115); Potassium 3.9 mmol/L (3.3-5.1); Sodium 138 mmol/L (135-145); Total Protein 6.3 g/dL (6.5-8.0)
== END 2023-09-07 06:02 | disposition home or self-care (01) ==
LOC: HO.HSH3E 06:01
PROVIDERS: Visit Provider Internal Medicine Medical Oncology
DX: I48.91 Unspecified atrial fibrillation (principal)
CPT/HCPCS: 36415; 80053; 85025; 85610; 85730

== ENCOUNTER 2023-10-16 13:36 | Emergency (ER) | payer MEDICARE, MEDICAID, SELFPAY ==
--- NOTE | ~2023-10-16 | CT_ITS ---
EXAMINATION: CT HEAD W/O IV CONTRAST CT CERVICAL SPINE W/O IV CONTRAST CLINICAL INFORMATION: History of fall with head strike. COMPARISON: 04/02/2022 TECHNIQUE: Head - Contiguous axial imaging of the head was performed from the skull base to the vertex without the administration of intravenous contrast, and axial images are reconstructed at 0.6 mm, 2 mm and 5 mm slice thickness. Cervical spine - A volumetric, helical CT acquisition of the cervical spine was obtained without contrast; in addition to the standard set of axial images, multiplanar reformatted images were provided in the coronal and sagittal imaging planes. This CT examination was performed using dose optimization techniques as appropriate, variously including the following: *Automated exposure control *Adjustment of mA and/or kV according to patient size (this includes techniques or standardized protocols for targeted exams where dose is matched to indication/reason for exam; i.e. extremities or head) *Use of iterative reconstruction technique DLP: 1241 mGy-cm (total) FINDINGS: HEAD: No intracranial hemorrhage, extra-axial surface collection, focal mass effect or midline shift. Atherosclerotic calcification of vertebral and cavernous carotid arteries. Chronic patchy and partially confluent hypoattenuation within the supratentorial white matter is compatible with sequela of moderate microangiopathy. Findings include old small infarction of the right occipital lobe. No acute loss of bush-white matter differentiation. Chronic [id number] parenchymal volume loss and commensurate prominence of ventricles and sulci; no hydrocephalus. No evidence of calvarial fracture. An area of mild soft tissue thickening of the right frontal scalp corresponds to the site of prior hematoma. The paranasal sinuses and mastoid air cells are well aerated. Temporomandibular joints and orbits are intact. Prior ocular lens extractions. CERVICAL SPINE: No acute findings within the degenerated cervical spine. There is calcium deposition (likely calcium pyrophosphate dihydrate crystal deposition) along the transverse ligament posterior to the dens. Small osteophytes and small subchondral cysts at atlantooccipital articulations. Degenerative sclerosis and osseous spurring at the anterior atlantodental articulation. Chronic multilevel degenerative disc disease and multilevel facet osteoarthritis. There is left-sided facet joint ankylosis at C3-C4. Skeletal hyperostosis with presence of bulky anterior ligament ossification. Also, prominent anterior vertebral osteophytes are noted and there is a chronically fragmented appearance of anterior osteophytes at C5-C6. No acute fractures. No prevertebral edema or soft tissue hematoma. 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 There is a focus of calcium deposition along the left ligamentum flavum at the C5 level. Posterior disc-osteophyte complexes cause moderate spinal canal stenosis at C4-C5 and C5-C6. The facet arthropathy and uncovertebral joint hypertrophy cause bilateral neural foraminal stenosis at C4-C5 and C5-C6 (severe on the right at C4-C5 and C5-C6). Chronic mild degenerative anterolisthesis at C6-C7 and C7-T1. No traumatic subluxation. Thyroid gland is slightly heterogeneous but without any discrete nodule. Thyroid no thyroid imaging follow-up recommended. Lung apices notable for centrilobular emphysema and apparent minimal atelectasis in posterior left apex. CT/CT cervical spine wo IV con IMPRESSION: * No intracranial hemorrhage or other acute intracranial pathology. * No acute abnormalities in the degenerated cervical spine compared to 04/02/2022. * Findings include chronic spinal canal stenosis and severe right-sided neural foraminal stenosis at C4-C5 and C5-C6.
--- NOTE | ~2023-10-16 | XR_ITS ---
EXAMINATION: XR HIP, LEFT CLINICAL INFORMATION: Pain after fall COMPARISON: 08/22/2020 TECHNIQUE: Two views of the left hip and AP view of pelvis. FINDINGS: Degenerative narrowing of disc spaces and osteophytes of the lower lumbar spine. The osseous pelvic ring is intact. Alignment is normal at the hips, pubic symphysis and sacroiliac joints. At the left hip, there is moderate loss of the joint space, mild subarticular sclerosis and osteophyte formation. No evidence of femoral fracture. Osteophytes and mild superomedial joint space narrowing at the right hip. There is an old healed intertrochanteric fracture of the right femur with intramedullary nail and dynamic neck screw in place. No evidence of loosening of the visualized hardware. Atherosclerotic calcification of the aorta, iliac and femoral arteries. XR/XR hip LT w PEL1V IMPRESSION: * No evidence of acute osseous injury in the pelvis or proximal femurs. * Osteoarthritis of both hips (left worse than right), not appreciably changed compared to 08/14/2020.
[2023-10-16 13:44] VITALS: BP 141/63; BP 147/84; PULSE 51; PULSE 56; RESP 16; TEMP 36.4; O2SAT 92; O2SAT 98; BMI 29.9
--- NOTE | 2023-10-16 13:49 | ECG_ITS ---
Test Reason : FALL Blood Pressure : / mmHG Vent. Rate : 053 BPM Atrial Rate : 000 BPM P-R Int : 000 ms QRS Dur : 076 ms QT Int : 424 ms P-R-T Axes : 000 -01 057 degrees QTc Int : 397 ms Atrial fibrillation with slow ventricular response with premature ventricular or aberrantly conducted complexes Abnormal ECG When compared with ECG of 15-JAN-2023 07:56, No significant change was found Referred By: Brook Mccain Electronically Signed By:MARIA ELENA WOODS
--- NOTE | 2023-10-16 14:26 | ED_ITS ---
HPI - Fall General Chief Complaint: Fall Stated Complaint: FALL WITH HEADSTRIKE +THINNERS Time Seen by Provider: 10/16/23 13:37 Source: patient and EMS Mode of arrival: EMS Limitations: no limitations History of Present Illness ED Provider: Faby Mccain PA-C HPI Narrative: 88 yo male with history of cognitive dysfunction, HTN, CAD, HLD, CKD III, osteoarthritis, COPD, hx UTI, hx suprapubic catheter, afib on Eliquis, who presents to the ER from [facility] for evaluation after he had an unwitnessed fall today. Patient states he was trying to move an end table in his room when he slipped, and fell backward onto his left side. He states he fell onto his left hip and left elbow. He states he ?bounced off the table and hit his head. He did not lose consciousness. He reports a bump on the back of his head. No laceration or wound. He initially had some left elbow pain which he denies currently. He states he is feeling better since arrival to the ER. He arrives to the ER in a cervical collar. He denies headache or neck pain. No chest pain, abdominal pain, nausea, vomiting, diarrhea. MD complaint: fall Onset (ago): unknown Fall from: standing Fall witnessed: no Place fall occurred: intermediate/SNF Loss of consciousness: unsure Prolonged down time: no Symptoms prior to fall: none Context: tripped/slipped Location of injury: pelvis Location of injury - extremities: left: elbow Severity: mild Associated symptoms (after fall): denies Related Data Home Medications ?Medication ?Instructions ?Recorded ?Confirmed atorvastatin 80 mg tablet 80 mg PO BEDTIME 03/25/20 01/03/23 ezetimibe 10 mg tablet 10 mg PO DAILY 03/25/20 01/03/23 cholecalciferol (vitamin D3) 125 250 mcg PO DAILY 07/03/20 01/03/23 mcg (5,000 unit) tablet (Vitamin D3) latanoprost 0.005 % eye drops 1 drp ophthalmic (eye) BEDTIME 07/03/20 01/03/23 vitamins A,C,J-wtge-sfiliz 2,148 1 tab PO BID 07/03/20 01/03/23 mcg-113 mg-45 mg-17.4 mg tablet (PreserVision AREDS) acetaminophen 325 mg tablet 650 mg PO Q6H PRN pain/ fever 08/06/22 01/03/23 albuterol sulfate 90 mcg/actuation 2 puff inhalation Q4H PRN Wheezing 08/06/22 01/04/23 aerosol inhaler (ProAir HFA) amlodipine 10 mg tablet 10 mg PO DAILY 08/06/22 01/03/23 cyanocobalamin (vitamin B-12) 2,000 mcg PO DAILY 08/06/22 01/03/23 1,000 mcg tablet escitalopram oxalate 5 mg tablet 5 mg PO DAILY 08/06/22 01/03/23 hydrochlorothiazide 25 mg tablet 25 mg PO DAILY 08/06/22 01/03/23 magnesium oxide 400 mg PO DAILY 08/06/22 01/03/23 metoprolol succinate 50 mg 50 mg PO DAILY 08/06/22 01/03/23 tablet,extended release 24 hr mirtazapine 15 mg tablet 7.5 mg PO BEDTIME 08/06/22 01/04/23 potassium chloride 10 mEq 10 meq PO DAILY 08/06/22 01/03/23 tablet,extended release (K-Tab) folic acid 1 mg tablet 1 mg PO DAILY 09/10/22 01/03/23 prednisone 20 mg PO DAILY 01/03/23 01/03/23 guaifenesin 100 mg/5 mL oral liquid 200 mg PO Q4H PRN Cough 01/04/23 01/04/23 ascorbic acid (vitamin C) 1,000 mg 500 mg PO DAILY 03/09/23 03/09/23 tablet methenamine hippurate 1 gram tablet 1 g PO DAILY 03/09/23 03/09/23 Previous Rx's ?Medication ?Instructions ?Recorded apixaban 2.5 mg tablet (Eliquis) 2.5 mg PO BID #60 tabs 01/17/23 docusate sodium 100 mg capsule 100 mg PO BID #60 caps 01/17/23 furosemide 40 mg tablet 40 mg PO DAILY #30 tabs 01/17/23 polyethylene glycol 3350 17 gram 17 g PO DAILY PRN Constipation #30 01/17/23 oral powder packet ea Allergies Allergy/AdvReac Type Severity Reaction Status Date / Time lisinopril Allergy Unknown Verified 10/16/23 13:49 Review of Systems 2 Review of Systems: Yes all other systems are reviewed and are negative PMFSH Past Medical History Medical History Mucus plugging of bronchi Respiratory failure with hypoxia and hypercapnia Atelectasis of left lung BPH (benign prostatic hyperplasia) Frequent falls On beta priscilla at home Overweight (BMI 25.0-29.9) Depression Urothelial carcinoma of bladder Vitamin B12 deficiency Vitamin D deficiency GERD without esophagitis Anemia Primary osteoarthritis, right shoulder Osteoarthritis of both knees Chronic kidney disease, stage III (moderate) Impaired fasting glucose Elevated liver enzymes Subdural hematoma Benign essential hypertension Pure hypercholesterolemia Coronary artery disease Surgical History History of tonsillectomy History of transurethral resection of bladder tumor (TURBT) History of hip surgery History of transurethral resection of prostate History of shoulder surgery Family History Family History Father CVD (cardiovascular disease) Mother Hypertension Social History Social History Household Members: Other Housing: [facility] Other:: [facility] Are you a primary personal caregiver to a significant other at home: No Do you presently have visiting nurse or other home services: No Alcohol intake: never Patient Tobacco Use Status: Former Tobacco user Advance Directives: Yes Advance Directives on File: Yes Advance Directives Date on File: 08/18/22 service: Yes Physical Exam 2 Vital Signs: Vital Signs: Last Vital Signs Temp 97.6 F 10/16/23 15:42 Pulse 55 10/16/23 15:42 Resp 16 10/16/23 15:42 BP 119/53 L 10/16/23 15:42 Pulse Ox 92 10/16/23 15:42 O2 Del Method Room Air 10/16/23 15:42 BMI result Body Mass Index 29.9 Appearance: Alert, elderly male laying on the stretcher comfortably. Oriented X1. No acute distress. Head: normocephalic, atraumatic. Eyes: Pupils equal, round and reactive to light. ENT: Pharynx normal. No tonsillar swelling or exudate. Neck: Normal inspection. Neck supple. CVS: Normal heart rate and rhythm. Pulses normal. Respiratory: No respiratory distress. Breath sounds normal. Abdomen: Soft and nontender. +BS x4 Skin: Skin warm and dry. Normal skin color. Normal skin turgor. No rashes. Extremities: No lower extremity edema. No joint swelling. Able to lift both lower extremities off of the stretcher. Strength is equal and symmetrical throughout. Nontender left elbow with full range of motion. No swelling or ecchymosis. Pelvis is stable. Left hip with mild tenderness. Normal passive range of motion of left lower extremity. Neuro/psych: Oriented X 1. No motor deficit. No sensory deficit. CN II-XII intact. Normal speech. Pleasantly confused Course Reevaluation(s) Reevaluation #1: Patient signed out to jessica WE[facility]BROOK who will follow-up CT scan, assess gait and determine safe disposition. Time: 15:54 Medical Decision Making Medical Decision Making MDM Narrative: 88 yo male with history of cognitive dysfunction, HTN, CAD, HLD, CKD III, osteoarthritis, COPD, hx UTI, hx suprapubic catheter, afib on low dose Eliquis, who presents to the ER from [facility] for evaluation after he had an unwitnessed fall today. He reportedly hit his head. He denies losing consciousness. On arrival to the ER patient ?feels better than before and denies any pain. On arrival to the ER patient is bradycardic with heart rates in the 50s. He is on rate control medications for his AFib. His blood pressure is stable in the 140s over 60s. He denies any lightheadedness or dizziness. Will need to check orthostatic vital signs and monitor on telemetry. He may have fallen due to symptomatic bradycardia. Upon review of records patient has been bradycardic every day for this month. He is on Toprol-XL 50 mg daily. His blood pressure is stable. CT scan of the head and neck were performed given he is anticoagulated. Upon review does not appear that he has an acute intracranial hemorrhage. CT scan shows some chronic stenosis in his cervical spine. Cervical collar was removed and he has no tenderness on palpation of the cervical spine. He feels well. He would like to go home. Comfortable discharge back to the [facility] Differential Diagnosis Differential Diagnoses: The differential diagnosis associated with the presentation includes Syncope, mechanical fall, head strike with intracranial hemorrhage, concussion, closed head injury, unsteady gait, stroke Admission/Observation Consideration of admission/observation: Escalation of care including admission/observation considered Lab Data MDM Lab Attestation statement: I reviewed the patient's lab results. Stable anemia and thrombocytopenia, stable renal function 10/16/23 14:28 10/16/23 14:28 Labs: Lab Results 10/16/23 Range/Units 14:28 WBC 9.6 (4.8-10.8) X10*3/uL RBC 4.02 L (4.60-5.80) X10*6/uL Hgb 13.0 L (14.0-18.0) g/dl Hct 37.1 L (42.0-52.0) % MCV 92.3 (80.0-98.0) fL MCH 32.3 (27.0-33.0) pg MCHC 35.0 (31.0-36.0) g/dl RDW 12.8 (11.0-16.0) % Plt Count 150 L (160-400) X10*3/uL MPV 10.2 (9.4-12.4) fL Immature Gran % (Auto) 0.5 H (0.0-0.4) % Neut % (Auto) 71.5 (45-73) % Lymph % (Auto) 13.7 L (20-40) % White % (Auto) 10.7 (2-11) % Eos % (Auto) 3.0 (0-4) % Baso % (Auto) 0.6 (0-2) % Lymph # (Auto) 1.3 (1.2-4.9) X10*3/uL White # (Auto) 1.0 (0.1-1.2) X10*3/uL Eos # (Auto) 0.3 (0.0-0.4) X10*3/uL Baso # (Auto) 0.1 (0.0-0.2) X10*3/uL Abs Immat Gran (auto) 0.05 H (0.00-0.03) X10*3/uL Absolute Neuts (auto) 6.9 (2.0-8.3) x10*3/uL Absolute Nucleated RBC 0.000 (0.0-0.012) X10*3/uL Nucleated RBC % (auto) 0.0 (0.0-0.2) /100WBC Sodium 139 (135-145) mmol/L Potassium 4.2 (3.3-5.1) mmol/L Chloride 105 (96-108) mmol/L Carbon Dioxide 22 (22-29) mmol/L Anion Gap 16 (12-20) BUN 23 H (9-16) mg/dL Creatinine 1.22 (0.5-1.4) mg/dL Estim Creat Clear Calc 44.8 Estimated GFR 56 Random Glucose 116 H (60-115) mg/dL Calcium 9.8 (8.4-10.2) mg/dL Magnesium 2.0 (1.6-2.6) mg/dL Total Bilirubin 0.8 (0.0-1.0) mg/dL Direct Bilirubin 0.3 (0.0-0.5) mg/dL AST 14 (5-37) U/L ALT 10 (0-40) U/L Alkaline Phosphatase 35 L (39-117) U/L Total Protein 6.1 L (6.5-8.0) g/dL Albumin 3.7 (3.5-5.0) g/dL Independent Interpretation I performed an independent interpretation of an: EKG and CT Scan Interpretation: CT head and cervical spine were reviewed, no evidence of acute intracranial hemorrhage or edema, no midline shift EKG with atrial fibrillation with slow ventricular response, ventricular rate 53 beats per minute, PVC present, normal QTC, no ST segment elevations or depressions. XR hip without acute fracture, agree w/ radiology read Radiology Impression Discussion of test interpretation with radiology: I have reviewed the radiologist's reading. Radiologist Impression: XR/XR hip LT w PEL1V IMPRESSION: * No evidence of acute osseous injury in the pelvis or proximal femurs. * Osteoarthritis of both hips (left worse than right), not appreciably changed compared to 08/14/2020. CT/CT cervical spine wo IV con IMPRESSION: * No intracranial hemorrhage or other acute intracranial pathology. * No acute abnormalities in the degenerated cervical spine compared to 04/02/2022. * Findings include chronic spinal canal stenosis and severe right-sided neural foraminal stenosis at C4-C5 and C5-C6. Independent Historian Clinical information obtained from an independent historian. History obtained from or confirmed by: EMS External Record Review External record reviewed: Inpatient record, Office record, Outpatient record, Prior outpatient labs and Prior outpatient radiology Prescription Management I considered prescription management with: Pain Medication Chronic Conditions Patient?s care impacted by: Other (Atrial fibrillation, cognitive dysfunction) Discharge Plan Discharge Clinical Impression: Atrial fibrillation with slow ventricular response Fall Qualifiers: Encounter type: initial encounter Qualified Code(s): W19.XXXA - Unspecified fall, initial encounter Patient Disposition: er [facility] Transfer Details: [facility] home Instructions: Fall Prevention for Older Adults (ED) Additional Instructions: Lab workup was unremarkable. Follow-up with your doctor. If you develop new or worsening symptoms call 911 or come back to the ER for further evaluation. CT/CT head/brain wo IV con IMPRESSION: * No intracranial hemorrhage or other acute intracranial pathology. * No acute abnormalities in the degenerated cervical spine compared to 04/02/2022. * Findings include chronic spinal canal stenosis and severe right-sided neural foraminal stenosis at C4-C5 and C5-C6. Prescriptions: No Action PreserVision AREDS 7,160 unit- 113 mg-100 unit Tablet 1 tab PO BID cholecalciferol (vitamin D3) [Vitamin D3] 125 mcg (5,000 unit) Tablet 250 mcg PO DAILY latanoprost 0.005 % Drops 1 drp ophthalmic (eye) BEDTIME Rx Instructions: BOTH EYES acetaminophen 325 mg Tablet 650 mg PO Q6H PRN (Reason: pain/ fever) mirtazapine 15 mg tablet 7.5 mg PO BEDTIME metoprolol succinate 50 mg tablet extended release 24 hr 50 mg PO DAILY potassium chloride [K-Tab] 10 mEq tablet extended release 10 meq PO DAILY hydrochlorothiazide 25 mg Tablet 25 mg PO DAILY escitalopram oxalate 5 mg tablet 5 mg PO DAILY amlodipine 10 mg Tablet 10 mg PO DAILY cyanocobalamin (vitamin B-12) 1,000 mcg Tablet 2,000 mcg PO DAILY magnesium oxide 400 mg magnesium Tablet 400 mg PO DAILY albuterol sulfate [ProAir HFA] 90 mcg/actuation Hfa Aerosol Inhaler 2 puff INHALATION Q4H PRN (Reason: Wheezing) prednisone 20 mg tablet 20 mg PO DAILY Rx Instructions: Started 12/31/22, give for 10 days guaifenesin 100 mg/5 mL Liquid 200 mg PO Q4H PRN (Reason: Cough) furosemide 40 mg Tablet 40 mg PO DAILY Qty: 30 0RF Protocol: Hold for SBP< HOLD for SBP < : 90 polyethylene glycol 3350 17 gram Powder In Packet 17 g PO DAILY PRN (Reason: Constipation) Qty: 30 0RF docusate sodium 100 mg Capsule 100 mg PO BID Qty: 60 0RF Eliquis 2.5 mg Tablet 2.5 mg PO BID Qty: 60 0RF atorvastatin 80 mg tablet 80 mg PO BEDTIME ezetimibe 10 mg tablet 10 mg PO DAILY ascorbic acid (vitamin C) 1,000 mg tablet 500 mg PO DAILY methenamine hippurate 1 gram tablet 1 g PO DAILY folic acid 1 mg tablet 1 mg PO DAILY Print Language: Croatian
[2023-10-16 14:33] LABS: MANUAL DIFF FLAG NO
[2023-10-16 14:36] LABS: Basophils Absolute Auto 0.1 X10*3/uL (0.0-0.2); Basophils Percent Auto 0.6 % (0-2); Eosinophils Absolute Auto 0.3 X10*3/uL (0.0-0.4); Hematocrit 37.1 % (42.0-52.0); Imm Gran Abs Auto 0.05 X10*3/uL (0.00-0.03); Imm Gran Pct Auto 0.5 % (0.0-0.4); Lymphocytes Absolute Auto 1.3 X10*3/uL (1.2-4.9); Lymphocytes Percent Auto 13.7 % (20-40); Mean Corpuscular Hemoglobin 32.3 pg (27.0-33.0); Mean Corpuscular Volume 92.3 fL (80.0-98.0); Mean Platelet Volume 10.2 fL (9.4-12.4); Monocytes Percent Auto 10.7 % (2-11); Neutrophils Absolute Auto 6.9 x10*3/uL (2.0-8.3); Neutrophils Percent Auto 71.5 % (45-73); Platelet Count 150 X10*3/uL (160-400); Red Blood Count 4.02 X10*6/uL (4.60-5.80); Red Cell Distribution Width 12.8 % (11.0-16.0); White Blood Count 9.6 X10*3/uL (4.8-10.8)
[2023-10-16 15:04] LABS: Alanine Aminotransferase 10 U/L (0-40); Albumin Level 3.7 g/dL (3.5-5.0); Alkaline Phosphatase 35 U/L (39-117); Anion Gap 16 (12-20); Aspartate Amino Transferase 14 U/L (5-37); Bilirubin Direct 0.3 mg/dL (0.0-0.5); Bilirubin Total 0.8 mg/dL (0.0-1.0); Blood Urea Nitrogen 23 mg/dL (9-16); Calcium 9.8 mg/dL (8.4-10.2); Carbon Dioxide 22 mmol/L (22-29); Chloride 105 mmol/L (96-108); Creatinine Clr Calc Pharmacy 44.8; Estimated Glomerular Filt Rate 56; Glucose Random 116 mg/dL (60-115); Potassium 4.2 mmol/L (3.3-5.1); Sodium 139 mmol/L (135-145); Total Protein 6.1 g/dL (6.5-8.0)
[2023-10-16 15:42] VITALS: BP 119/53; PULSE 55; RESP 16; TEMP 36.4; O2SAT 92
--- NOTE | 2023-10-16 15:43 | PC.NURSE ---
patient resting quietly in bed, respirations equal and unlabored, awaiting CT scan results. patient c collar in place, patient able to make needs known. skin dry and intact, given warm blanket
--- NOTE | 2023-10-16 16:11 | PC.NURSE ---
patient ambulated with walker one assist, patient steady
--- NOTE | 2023-10-16 16:33 | PC.NURSE ---
patient repositioned in bed, bundled with blankets, offered patient snack/food he refused, patient requested coffee, gave patient coffee. patient awaiting d/c ambulance back to [facility]
--- NOTE | 2023-10-16 17:12 | PC.NURSE ---
patient has remained calm and cooperative during ER stay
[2023-10-16 18:24] VITALS: BP 141/59; PULSE 92; RESP 20; TEMP 36.2; O2SAT 92
--- NOTE | 2023-10-16 18:24 | PC.NURSE ---
[facility] here to transport [facility], patient calm and cooperative, VSS, report given to Suyapa at snf
== END 2023-10-16 18:25 | disposition skilled nursing facility (03) ==
PROVIDERS: Physician Assistant; Emergency Provider Emergency Medicine; PCP Internal Medicine Medical Oncology
DX: S09.90XA Unspecified injury of head, initial encounter (principal); M25.552 Pain in left hip; I48.91 Unspecified atrial fibrillation; I10 Essential (primary) hypertension; I25.10 Atherosclerotic heart disease of native coronary artery without angina pectoris; R51.9 Headache, unspecified; M25.522 Pain in left elbow; W01.10XA Fall on same level from slipping, tripping and stumbling with subsequent striking against unspecified object, initial encounter; Y93.01 Activity, walking, marching and hiking; Y92.008 Other place in unspecified non-institutional (private) residence as the place of occurrence of the external cause; Y99.8 Other external cause status; Z79.899 Other long term (current) drug therapy; Z87.891 Personal history of nicotine dependence
CPT/HCPCS: 36415; 70450; 72125; 73502; 80048; 80076; 83735; 85025; 93005; 99284; 99285

== ENCOUNTER → 2023-10-16 13:49 | Outpatient (BNV) | payer MEDICARE, MEDICAID, SELFPAY | PROVIDERS: Emergency Provider Emergency Medicine; PCP Internal Medicine Medical Oncology; Visit Provider Internal Medicine | DX: I48.91 Unspecified atrial fibrillation (principal); I49.3 Ventricular premature depolarization | CPT/HCPCS: 93010 ==

== ENCOUNTER 2023-11-22 07:14 | Outpatient (REF) | payer MEDICARE, MEDICAID, SELFPAY ==
[2023-11-22 07:55] LABS: Basophils Percent Auto 0.2 % (0-2); Eosinophils Percent Auto 0.2 % (0-4); Hematocrit 34.5 % (42.0-52.0); Imm Gran Abs Auto 0.12 X10*3/uL (0.00-0.03); Imm Gran Pct Auto 0.7 % (0.0-0.4); Lymphocytes Absolute Auto 1.8 X10*3/uL (1.2-4.9); Lymphocytes Percent Auto 9.9 % (20-40); MANUAL DIFF FLAG SCAN; Mean Corpuscular HGB Conc 34.8 g/dl (31.0-36.0); Mean Corpuscular Hemoglobin 33.3 pg (27.0-33.0); Mean Corpuscular Volume 95.8 fL (80.0-98.0); Mean Platelet Volume 10.4 fL (9.4-12.4); Monocytes Absolute Auto 2.4 X10*3/uL (0.1-1.2); Monocytes Percent Auto 13.2 % (2-11); Neutrophils Absolute Auto 13.5 x10*3/uL (2.0-8.3); Neutrophils Percent Auto 75.8 % (45-73); Platelet Count 168 X10*3/uL (160-400); Red Cell Distribution Width 13.2 % (11.0-16.0); SCAN SMEAR FLAG 1; White Blood Count 17.7 X10*3/uL (4.8-10.8)
[2023-11-22 08:18] LABS: Alanine Aminotransferase 25 U/L (0-40); Albumin Level 3.3 g/dL (3.5-5.0); Alkaline Phosphatase 44 U/L (39-117); Amylase 61 U/L (28-100); Anion Gap 12 (12-20); Aspartate Amino Transferase 28 U/L (5-37); Bilirubin Total 0.8 mg/dL (0.0-1.0); Blood Urea Nitrogen 31 mg/dL (9-16); Carbon Dioxide 26 mmol/L (22-29); Chloride 106 mmol/L (96-108); Estimated Glomerular Filt Rate 43; Glucose Random 116 mg/dL (60-115); Lipase 22 U/L (8-78); Potassium 3.5 mmol/L (3.3-5.1); Sodium 140 mmol/L (135-145); Total Protein 5.9 g/dL (6.5-8.0)
[2023-11-22 08:20] LABS: SLIDE REVIEW VERIFIED
== END 2023-11-22 07:15 | disposition home or self-care (01) ==
LOC: HO.HSH3E 07:14
PROVIDERS: Visit Provider Nurse Practitioner
DX: U07.1 COVID-19 (principal); R11.10 Vomiting, unspecified
CPT/HCPCS: 36415; 80053; 82150; 83690; 85025

== ENCOUNTER 2023-11-26 12:10 | Outpatient (REF) | payer MEDICARE, MEDICAID, SELFPAY ==
[2023-11-26 12:20] LABS: Basophils Absolute Auto 0.1 X10*3/uL (0.0-0.2); Basophils Percent Auto 0.3 % (0-2); Eosinophils Absolute Auto 0.1 X10*3/uL (0.0-0.4); Eosinophils Percent Auto 0.8 % (0-4); Hematocrit 33.1 % (42.0-52.0); Hemoglobin 11.5 g/dl (14.0-18.0); Imm Gran Pct Auto 1.4 % (0.0-0.4); Lymphocytes Absolute Auto 1.1 X10*3/uL (1.2-4.9); Lymphocytes Percent Auto 7.8 % (20-40); MANUAL DIFF FLAG SCAN; Mean Corpuscular HGB Conc 34.7 g/dl (31.0-36.0); Mean Corpuscular Hemoglobin 32.7 pg (27.0-33.0); Monocytes Absolute Auto 1.8 X10*3/uL (0.1-1.2); Monocytes Percent Auto 12.8 % (2-11); Neutrophils Absolute Auto 11.1 x10*3/uL (2.0-8.3); Neutrophils Percent Auto 76.9 % (45-73); Platelet Count 188 X10*3/uL (160-400); Red Blood Count 3.52 X10*6/uL (4.60-5.80); Red Cell Distribution Width 12.4 % (11.0-16.0); SCAN SMEAR FLAG 1; White Blood Count 14.4 X10*3/uL (4.8-10.8)
[2023-11-26 12:37] LABS: Anion Gap 17 (12-20); Blood Urea Nitrogen 27 mg/dL (9-16); Calcium 9.1 mg/dL (8.4-10.2); Carbon Dioxide 22 mmol/L (22-29); Chloride 105 mmol/L (96-108); Estimated Glomerular Filt Rate 53; Glucose Random 95 mg/dL (60-115); Potassium 3.8 mmol/L (3.3-5.1); Sodium 140 mmol/L (135-145)
[2023-11-26 12:44] LABS: SLIDE REVIEW VERIFIED
[2023-11-26 14:42] LABS: Appearance Urine Clear; Color Urine Yellow; Glucose Urine UA Negative (Negative); Leukocyte Esterase Urine Small (1+) (Negative); Nitrite Urine Positive (Negative); PH 5.5 (5.0-9.0); Specific Gravity - Urine 1.015 (1.005-1.025); UMIC TRIGGER UA YES; Urine Blood Large (3+) (Negative); Urine Ketones Trace mg/dL (Negative); Urine Protein 30 (1+) mg/dL (Neg-Trace)
[2023-11-26 14:57] LABS: Bacteria Urine Trace (None Seen); Hyaline Casts Urine 0-2 /LPF (0-2); RBC Urine 0-2 /HPF (0-2); Squamous Epithelial Cell Urine 0-2 /HPF (0-2); WBC Urine 21-50 /HPF (0-5)
== END 2023-11-26 12:11 | disposition home or self-care (01) ==
LOC: HO.HSH3E 12:10
PROVIDERS: Visit Provider Internal Medicine Interventional Cardiology
DX: N99.521 Infection of incontinent external stoma of urinary tract (principal); R82.90 Unspecified abnormal findings in urine
CPT/HCPCS: 36415; 80048; 81001; 85025; 87070; 87077; 87086; 87186; 87205

== ENCOUNTER 2023-12-02 16:51 | Outpatient (REF) | payer MEDICARE, MEDICAID, SELFPAY ==
[2023-12-02 16:59] LABS: Basophils Absolute Auto 0.1 X10*3/uL (0.0-0.2); Basophils Percent Auto 0.3 % (0-2); Eosinophils Absolute Auto 0.3 X10*3/uL (0.0-0.4); Eosinophils Percent Auto 1.5 % (0-4); Hematocrit 32.8 % (42.0-52.0); Hemoglobin 11.6 g/dl (14.0-18.0); Imm Gran Abs Auto 0.29 X10*3/uL (0.00-0.03); Imm Gran Pct Auto 1.3 % (0.0-0.4); Lymphocytes Absolute Auto 1.1 X10*3/uL (1.2-4.9); Lymphocytes Percent Auto 4.9 % (20-40); MANUAL DIFF FLAG SCAN; Mean Corpuscular HGB Conc 35.4 g/dl (31.0-36.0); Mean Corpuscular Hemoglobin 32.6 pg (27.0-33.0); Mean Corpuscular Volume 92.1 fL (80.0-98.0); Mean Platelet Volume 9.6 fL (9.4-12.4); Monocytes Absolute Auto 2.2 X10*3/uL (0.1-1.2); Monocytes Percent Auto 10.1 % (2-11); Neutrophils Absolute Auto 17.7 x10*3/uL (2.0-8.3); Neutrophils Percent Auto 81.9 % (45-73); Platelet Count 239 X10*3/uL (160-400); Red Blood Count 3.56 X10*6/uL (4.60-5.80); Red Cell Distribution Width 12.3 % (11.0-16.0); SCAN SMEAR FLAG 1; White Blood Count 21.6 X10*3/uL (4.8-10.8)
[2023-12-02 17:06] LABS: Appearance Urine Clear; Color Urine Yellow; Glucose Urine UA Negative (Negative); Leukocyte Esterase Urine Small (1+) (Negative); Nitrite Urine Negative (Negative); PH 5.5 (5.0-9.0); UMIC TRIGGER UACC YES; Urine Blood Large (3+) (Negative); Urine Ketones Negative (Negative); Urine Protein 30 (1+) mg/dL (Neg-Trace)
[2023-12-02 17:24] LABS: SLIDE REVIEW VERIFIED
[2023-12-02 17:35] LABS: Anion Gap 15 (12-20); Blood Urea Nitrogen 33 mg/dL (9-16); Calcium 9.3 mg/dL (8.4-10.2); Carbon Dioxide 24 mmol/L (22-29); Chloride 100 mmol/L (96-108); Estimated Glomerular Filt Rate 53; Glucose Random 135 mg/dL (60-115); Potassium 3.9 mmol/L (3.3-5.1); Sodium 135 mmol/L (135-145)
[2023-12-02 17:38] LABS: Bacteria Urine None Seen (None Seen); Hyaline Casts Urine 0-2 /LPF (0-2); RBC Urine >20 /HPF (0-2); Squamous Epithelial Cell Urine 0-2 /HPF (0-2); UACC Culture Trigger YES; WBC Urine 0-5 /HPF (0-5)
== END 2023-12-02 16:52 | disposition home or self-care (01) ==
LOC: HO.HSH3E 16:51
PROVIDERS: Visit Provider Nurse Practitioner Acute Care
DX: Z13.89 Encounter for screening for other disorder (principal)
CPT/HCPCS: 36415; 80048; 81001; 81003; 85025; 87086; 87088; 87186

== ENCOUNTER 2023-12-03 13:18 | Inpatient (IN) | payer MEDICARE, SELFPAY ==
--- NOTE | ~2023-12-03 | XR_ITS ---
EXAMINATION: XR CHEST CLINICAL INFORMATION: Lethargic. Leukocytosis. COMPARISON: Multiple priors with the last chest CT of 01/12/2023 and chest x-ray of 01/10/2023 TECHNIQUE: Frontal view of the chest was obtained. FINDINGS: Note is again made of moderate elevation of the left hemidiaphragm with hypoexpansion of the left lung. Streaky bibasilar opacities are redemonstrated. No significant pleural effusions, pulmonary edema or pneumothorax are seen. Degenerative changes in the bilateral shoulders. Cardiomediastinal silhouette is unchanged. XR/XR chest 1V IMPRESSION: No convincing radiographic evidence of pneumonia. Streaky bibasilar opacities are likely reflecting atelectasis. Electronically signed by: Mick Watts MD 12/03/2023 03:34 PM EDT
--- NOTE | 2023-12-03 13:35 | ED_ITS ---
HPI - General Adult General Chief complaint: General Medical Stated complaint: QYESTION OF SEPSIS Time Seen by Provider: 12/03/23 13:34 Source: patient, EMS, RN notes reviewed and old records reviewed Limitations: no limitations History of Present Illness ED Provider: Faby Mccain PA-C HPI narrative: 88 yo male iwth history of CKD III, OA, anemia, GERD, HTN, HLD, CAD, afib on eliquis, COPD, history of BPH with urinary outflow tract obstruction, history of urothelial carcinoma of the bladder, status post suprapubic catheter, history of UTI who [facility]y in the setting of newly diagnosed UTI and leukocytosis. Patient is a poor historian but reports for last couple of days he has been more lethargic and wanting to rest more. He has had poor p.o. intake. He states yesterday they did blood work on him and started on antibiotics for UTI. A change his suprapubic catheter yesterday. Per review of his records he was found have a white blood cell count of 21.6. His urinalysis was positive for infection and he was started on Bactrim last night, he was previously on Augmentin Patient denies any fevers or chills. He denies any abdominal pain, nausea, vomiting, diarrhea, chest pain or shortness of breath. He denies any bladder pain or spasms. He has not noticed any blood in his catheter. MD complaint: Leukocytosis, lethargy/altered mental status Onset (ago): day(s) Associated symptoms: confusion, loss of appetite, malaise and weakness Treatments prior to arrival: other (Bactrim given last night) Related Data Home Medications ?Medication ?Instructions ?Recorded ?Confirmed atorvastatin 80 mg tablet 80 mg PO BEDTIME 03/25/20 01/03/23 ezetimibe 10 mg tablet 10 mg PO DAILY 03/25/20 01/03/23 cholecalciferol (vitamin D3) 125 250 mcg PO DAILY 07/03/20 01/03/23 mcg (5,000 unit) tablet (Vitamin D3) latanoprost 0.005 % eye drops 1 drp ophthalmic (eye) BEDTIME 07/03/20 01/03/23 vitamins A,C,M-avzy-uadmdw 2,148 1 tab PO BID 07/03/20 01/03/23 mcg-113 mg-45 mg-17.4 mg tablet (PreserVision AREDS) acetaminophen 325 mg tablet 650 mg PO Q6H PRN pain/ fever 08/06/22 01/03/23 albuterol sulfate 90 mcg/actuation 2 puff inhalation Q4H PRN Wheezing 08/06/22 01/04/23 aerosol inhaler (ProAir HFA) amlodipine 10 mg tablet 10 mg PO DAILY 08/06/22 01/03/23 cyanocobalamin (vitamin B-12) 2,000 mcg PO DAILY 08/06/22 01/03/23 1,000 mcg tablet escitalopram oxalate 5 mg tablet 5 mg PO DAILY 08/06/22 01/03/23 hydrochlorothiazide 25 mg tablet 25 mg PO DAILY 08/06/22 01/03/23 magnesium oxide 400 mg PO DAILY 08/06/22 01/03/23 metoprolol succinate 50 mg 50 mg PO DAILY 08/06/22 01/03/23 tablet,extended release 24 hr mirtazapine 15 mg tablet 7.5 mg PO BEDTIME 08/06/22 01/04/23 potassium chloride 10 mEq 10 meq PO DAILY 08/06/22 01/03/23 tablet,extended release (K-Tab) folic acid 1 mg tablet 1 mg PO DAILY 09/10/22 01/03/23 prednisone 20 mg PO DAILY 01/03/23 01/03/23 guaifenesin 100 mg/5 mL oral liquid 200 mg PO Q4H PRN Cough 01/04/23 01/04/23 ascorbic acid (vitamin C) 1,000 mg 500 mg PO DAILY 03/09/23 03/09/23 tablet methenamine hippurate 1 gram tablet 1 g PO DAILY 03/09/23 03/09/23 Previous Rx's ?Medication ?Instructions ?Recorded apixaban 2.5 mg tablet (Eliquis) 2.5 mg PO BID #60 tabs 01/17/23 docusate sodium 100 mg capsule 100 mg PO BID #60 caps 01/17/23 furosemide 40 mg tablet 40 mg PO DAILY #30 tabs 01/17/23 polyethylene glycol 3350 17 gram 17 g PO DAILY PRN Constipation #30 01/17/23 oral powder packet ea Allergies Allergy/AdvReac Type Severity Reaction Status Date / Time lisinopril Allergy Unknown Verified 09/07/24 13:38 Review of Systems 2 Review of Systems: Yes all other systems are reviewed and are negative [facility] Past Medical History Medical History Mucus plugging of bronchi Respiratory failure with hypoxia and hypercapnia Atelectasis of left lung BPH (benign prostatic hyperplasia) Frequent falls On beta priscilla at home Overweight (BMI 25.0-29.9) Depression Urothelial carcinoma of bladder Vitamin B12 deficiency Vitamin D deficiency GERD without esophagitis Anemia Primary osteoarthritis, right shoulder Osteoarthritis of both knees Chronic kidney disease, stage III (moderate) Impaired fasting glucose Elevated liver enzymes Subdural hematoma Benign essential hypertension Pure hypercholesterolemia Coronary artery disease Surgical History History of tonsillectomy History of transurethral resection of bladder tumor (TURBT) History of hip surgery History of transurethral resection of prostate History of shoulder surgery Family History Family History Father CVD (cardiovascular disease) Mother Hypertension Social History Social History Household Members: Other Housing: [facility]way Housing Other:: [employer] Are you a primary assurance services manager health care to a significant other at home: No Do you presently have visiting nurse or other home services: No Alcohol intake: former Patient Tobacco Use Status: Former Tobacco user Smoked in Last 30 Days: No Use of substances other than those prescribed or required for medical reasons: No Advance Directives: Yes Advance Directives on File: Yes Advance Directives Date on File: 08/18/22 Do you have a plan to hurt others: No Plan service: Yes Physical Exam ED Vital Signs: Vital Signs - 24 hr 12/03/23 13:37 12/03/23 15:46 Temperature 98.6 F 97.6 F Pulse Rate 63 69 Respiratory Rate 18 16 Blood Pressure 135/59 L 134/66 Pulse Oximetry 96 94 Oxygen Delivery Method Room Air Room Air BMI result Body Mass Index 27.3 Appearance: Alert elderly male sitting up in bed. Oriented X2. poor historian, hard of hearing No acute distress. Head: normocephalic, atraumatic. Eyes: Pupils equal, round and reactive to light. ENT: Pharynx normal. No tonsillar swelling or exudate. Neck: Normal inspection. Neck supple. CVS: Irregularly irregular, normal rate. Pulses normal. Respiratory: No respiratory distress. Breath sounds normal. Abdomen: Soft and nontender. +BS x4 suprapubic catheter in place Skin: Skin warm and dry. Normal skin color. Normal skin turgor. No rashes. Extremities: No lower extremity edema. No joint swelling. Neuro/psych: Oriented X 2. Strength is equal and symmetrical throughout, globally weak. Nonfocal CN II-XII intact. Normal speech and cognition. Medications Administered Discontinued Medications Generic Name Dose Route Start Last Admin Trade Name Freq PRN Reason Stop Dose Admin Lactated Ringer's 1,000 mls @ 999 mls/hr 12/03/23 14:30 12/03/23 16:06 Lr IV 12/03/23 15:30 Infused .Q1H1M IDANIA Infusion Piperacillin Sod/Tazobactam 50 mls @ 100 mls/hr 12/03/23 14:26 12/03/23 15:30 Sod 3.375 gm/ Sodium Chloride IV 12/03/23 14:55 Infused ONCE ONE Infusion Medical Decision Making Medical Decision Making MDM Narrative: 88 yo male iwth history of CKD III, OA, anemia, GERD, HTN, HLD, CAD, afib on eliquis, COPD, history of BPH with urinary outflow tract obstruction, history of urothelial carcinoma of the bladder, status post suprapubic catheter, history of UTI who [facility]y in the setting of newly diagnosed UTI and leukocytosis. Patient arrives to the ER afebrile, he received scheduled Tylenol this morning. He is hemodynamically stable with blood pressure in the 130s. He is saturating well on room air. He is awake, alert, hard of hearing which is his baseline. He feels tired and weak but his physical exam does not exhibit any focal abnormalities. He is not altered. No need to CT scan his head at this time. Lab workup today shows a persistent leukocytosis of 20.1. He has had leukocytosis since November 21. He was previously on amoxicillin for UTI and change to Bactrim last night. He has underlying renal dysfunction. He has history of multiple UTIs including a Pseudomonas strain back in May that is resistant to quinolones, intermediate resistance to meropenem. On review of records there was a swab from the drainage from the suprapubic stoma that is growing MSSA. This does not appear to be a urine culture and is skin nicole. He did not seem to be responding to amoxicillin, concern for recurrent Pseudomonas or resistant organism causing his UTI, leukocytosis, elevated lactic acid today. Intravenous Zosyn was given for broad coverage. Urine culture from yesterday is still pending, repeat was sent today. Will plan to admit for IV antibiotics and monitoring. Differential Diagnosis Differential Diagnoses: The differential diagnosis associated with the presentation includes UTI, pyelonephritis, COVID, flu, RSV, pneumonia, low suspicion for meningitis, encephalitis Admission/Observation Consideration of admission/observation: Escalation of care including admission/observation considered Consult Healthcare Provider Management of the patient was discussed with: Hospitalist Lab Data MDM Lab Attestation statement: I reviewed the patient's lab results. Leukocytosis, normocytic anemia, CKD at baseline, mild elevation of lactic acid 12/03/23 13:52 12/03/23 13:52 Labs: Lab Results 12/03/23 12/03/23 12/03/23 Range/Units 13:52 14:43 16:15 WBC 20.1 H (4.8-10.8) X10*3/uL RBC 3.59 L (4.60-5.80) X10*6/uL Hgb 11.7 L (14.0-18.0) g/dl Hct 33.5 L (42.0-52.0) % MCV 93.3 (80.0-98.0) fL MCH 32.6 (27.0-33.0) pg MCHC 34.9 (31.0-36.0) g/dl RDW 12.4 (11.0-16.0) % Plt Count 262 (160-400) X10*3/uL MPV 9.5 (9.4-12.4) fL Immature Gran % (Auto) 1.5 H (0.0-0.4) % Neut % (Auto) 79.7 H (45-73) % Lymph % (Auto) 6.6 L (20-40) % [place] % (Auto) 9.8 (2-11) % Eos % (Auto) 2.2 (0-4) % Baso % (Auto) 0.2 (0-2) % Lymph # (Auto) 1.3 (1.2-4.9) X10*3/uL [place] # (Auto) 2.0 H (0.1-1.2) X10*3/uL Eos # (Auto) 0.4 (0.0-0.4) X10*3/uL Baso # (Auto) 0.1 (0.0-0.2) X10*3/uL Abs Immat Gran (auto) 0.31 H (0.00-0.03) X10*3/uL Absolute Neuts (auto) 16.0 H (2.0-8.3) x10*3/uL Absolute Nucleated RBC 0.000 (0.0-0.012) X10*3/uL Nucleated RBC % (auto) 0.0 (0.0-0.2) /100WBC Smear Tech's Comments VERIFIED Sodium 134 L (135-145) mmol/L Potassium 3.9 (3.3-5.1) mmol/L Chloride 100 (96-108) mmol/L Carbon Dioxide 23 (22-29) mmol/L Anion Gap 15 (12-20) BUN 30 H (9-16) mg/dL Creatinine 1.44 H (0.5-1.4) mg/dL Estim Creat Clear Calc 34.9 Estimated GFR 46 Random Glucose 134 H (60-115) mg/dL Lactic Acid 2.1 H* (0.5-2.0) mmol/L Lactic Acid F/U @ 2Hr 1.2 (0.5-2.0) mmol/L Calcium 9.3 (8.4-10.2) mg/dL Magnesium 1.9 (1.6-2.6) mg/dL Total Bilirubin 0.5 (0.0-1.0) mg/dL AST 14 (5-37) U/L ALT 11 (0-40) U/L Alkaline Phosphatase 47 (39-117) U/L Total Protein 6.7 (6.5-8.0) g/dL Albumin 3.2 L (3.5-5.0) g/dL Urine Color Red A Urine Appearance Turbid Urine pH 5.0 (5.0-9.0) Ur Specific [place] 1.025 (1.005-1.025) Urine Protein 100 (2+) H (Neg-Trace) mg/dL Urine Glucose (UA) Negative (Negative) mg/dL Urine Ketones Negative (Negative) mg/dL Urine Blood Moderate (2+) H (Negative) Urine Nitrite See Note (Negative) Ur Leukocyte Esterase See Note (Negative) Urine RBC >20 H (0-2) /HPF Urine WBC 0-5 (0-5) /HPF Ur Squamous Epith Cells 6-10 (0-2) /HPF Urine Bacteria None Seen (None Seen) Hyaline Casts 3-5 (0-2) /LPF Influenza Type A (PCR) NEGATIVE (Negative) Influenza Type B (PCR) NEGATIVE (Negative) RSV RNA Qual (PCR) NEGATIVE (Negative) SARS-CoV-2 RNA (RT-PCR) NEGATIVE (Negative) Independent Interpretation I performed an independent interpretation of an: EKG and Plain X-Ray Interpretation: EKG sinus rhythm, low voltage QRS, no ST segment elevations or depressions. Ventricular rate 67 beats per minute CXR without focal infiltrate or PNA Radiology Impression Discussion of test interpretation with radiology: I have reviewed the radiologist's reading. Radiologist Impression: EXAMINATION: XR CHEST CLINICAL INFORMATION: Lethargic. Leukocytosis. COMPARISON: Multiple priors with the last chest CT of 01/12/2023 and chest x-ray of 01/10/2023 TECHNIQUE: Frontal view of the chest was obtained. FINDINGS: Note is again made of moderate elevation of the left hemidiaphragm with hypoexpansion of the left lung. Streaky bibasilar opacities are redemonstrated. No significant pleural effusions, pulmonary edema or pneumothorax are seen. Degenerative changes in the bilateral shoulders. Cardiomediastinal silhouette is unchanged. XR/XR chest 1V IMPRESSION: No convincing radiographic evidence of pneumonia. Streaky bibasilar opacities are likely reflecting atelectasis. Independent Historian Clinical information obtained from an independent historian. History obtained from or confirmed by: Spouse and EMS External Record Review External record reviewed: Inpatient record, Office record, Outpatient record, Prior outpatient labs, Prior outpatient radiology and Primary care record Prescription Management I considered prescription management with: Pain Medication and Antibiotic Chronic Conditions Patient?s care impacted by: Other (CKD, HTN, AFib, suprapubic catheter with recurrent infections) Social Determinants Patient?s care significantly limited by Social Determinants of Health including: Other Social Determinant of Health Critical Care Time Critical Care Time Critical Care Time: Yes Total Critical Care Time: 39 Attestation: I have personally provided critical care time exclusive of time spent on separately billable procedures. Time includes review of lab data, radiology results, discussion with consultants, and monitoring for potential decompensation. Intervention performed as documented. Discharge Plan Discharge Clinical Impression: Acute UTI Hematuria Qualifiers: Hematuria type: gross Qualified Code(s): R31.0 - Gross hematuria Patient Disposition: Admitted As Inpatient Print Language: Serbian
[2023-12-03 13:37] VITALS: BP 135/59; BP 150/80; PULSE 63; PULSE 89; RESP 18; TEMP 37; O2SAT 96; BMI 27.3
[2023-12-03 13:58] LABS: Basophils Absolute Auto 0.1 X10*3/uL (0.0-0.2); Basophils Percent Auto 0.2 % (0-2); Eosinophils Absolute Auto 0.4 X10*3/uL (0.0-0.4); Eosinophils Percent Auto 2.2 % (0-4); Hematocrit 33.5 % (42.0-52.0); Hemoglobin 11.7 g/dl (14.0-18.0); Imm Gran Abs Auto 0.31 X10*3/uL (0.00-0.03); Imm Gran Pct Auto 1.5 % (0.0-0.4); Lymphocytes Absolute Auto 1.3 X10*3/uL (1.2-4.9); Lymphocytes Percent Auto 6.6 % (20-40); MANUAL DIFF FLAG SCAN; Mean Corpuscular HGB Conc 34.9 g/dl (31.0-36.0); Mean Corpuscular Hemoglobin 32.6 pg (27.0-33.0); Mean Corpuscular Volume 93.3 fL (80.0-98.0); Mean Platelet Volume 9.5 fL (9.4-12.4); Monocytes Percent Auto 9.8 % (2-11); Neutrophils Percent Auto 79.7 % (45-73); Platelet Count 262 X10*3/uL (160-400); Red Blood Count 3.59 X10*6/uL (4.60-5.80); Red Cell Distribution Width 12.4 % (11.0-16.0); SCAN SMEAR FLAG 1; White Blood Count 20.1 X10*3/uL (4.8-10.8)
[2023-12-03 14:18] LABS: Lactic Acid 2.1 mmol/L (0.5-2.0)
[2023-12-03 14:20] LABS: Alanine Aminotransferase 11 U/L (0-40); Albumin Level 3.2 g/dL (3.5-5.0); Alkaline Phosphatase 47 U/L (39-117); Anion Gap 15 (12-20); Aspartate Amino Transferase 14 U/L (5-37); Bilirubin Total 0.5 mg/dL (0.0-1.0); Blood Urea Nitrogen 30 mg/dL (9-16); Calcium 9.3 mg/dL (8.4-10.2); Carbon Dioxide 23 mmol/L (22-29); Chloride 100 mmol/L (96-108); Creatinine Clr Calc Pharmacy 34.9; Estimated Glomerular Filt Rate 46; Glucose Random 134 mg/dL (60-115); Magnesium 1.9 mg/dL (1.6-2.6); Potassium 3.9 mmol/L (3.3-5.1); Sodium 134 mmol/L (135-145); Total Protein 6.7 g/dL (6.5-8.0)
[2023-12-03 14:23] LABS: SLIDE REVIEW VERIFIED
[2023-12-03 14:37] LABS: Influenza A PCR NEGATIVE (Negative); Influenza B PCR NEGATIVE (Negative); Resp Syncy Virus RNA Qual PCR NEGATIVE (Negative); SARS COV2 PCR INHOUSE NEGATIVE (Negative)
[2023-12-03] MEDS: Piperacillin Sodium/Tazobactam 3.375 GM in 0.9 % Sodium Chloride 50 ML IV (14:45)
[2023-12-03] MEDS: Lactated Ringers 1,000 ML 999 ML IV (14:47)
[2023-12-03 15:04] LABS: Appearance Urine Turbid; Color Urine Red; Glucose Urine UA Negative (Negative); Specific Gravity - Urine 1.025 (1.005-1.025); UMIC TRIGGER UACC YES; Urine Blood Moderate (2+) (Negative); Urine Ketones Negative (Negative); Urine Protein 100 (2+) mg/dL (Neg-Trace)
[2023-12-03 15:05] LABS: Bacteria Urine None Seen (None Seen); RBC Urine >20 /HPF (0-2); WBC Urine 0-5 /HPF (0-5)
--- NOTE | 2023-12-03 15:09 | ECG_ITS ---
Test Reason : WEAKNESS Blood Pressure : / mmHG Vent. Rate : 067 BPM Atrial Rate : 000 BPM P-R Int : 000 ms QRS Dur : 078 ms QT Int : 402 ms P-R-T Axes : 000 -05 021 degrees QTc Int : 424 ms Accelerated Junctional rhythm Abnormal ECG When compared with ECG of 16-OCT-2023 14:44, Junctional rhythm has replaced Atrial fibrillation Non-specific change in ST segment in Inferior leads Referred By: Brook Mccain Electronically Signed By:JOAQUIN DEL RIO
[2023-12-03 15:46] VITALS: BP 134/66; PULSE 69; RESP 16; TEMP 36.4; O2SAT 94
[2023-12-03 15:55] LABS: Reflex Lactate? Lactic Acid Added
--- NOTE | 2023-12-03 16:08 | PM.IMHP ---
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 Patient is alert and oriented x3, though not to situation and is in general a poor historian. HPI is thus obtained from chart and provider review as well as family who is at bedside. Patient was recently diagnosed with a UTI and started on amoxicillin from 11/27-12/01 when he was switched to bactrim. Over the past week patient has been intermittently confused and weaker than normal. Repeat labs yesterday and today showed an increase in patient's wbc's, coupled with his weakness, lethargy, and altered mental status, was then sent into the ED for further evaluation. Patient himself reports has been eating less than normal lately, otherwise does not have any acute medical complaints. reports patient is appears closer to baseline mentally than he did earlier, though is weaker than normal. At baseline is primarily wheelchair-bound, though can move his chair with his feet.? In the ED pt's vitals largely WNL. Labs were significant for leukocytosis of 20.1, stable H&H of 11.7/33.5, sodium 134, BUN 30, creatinine 1.44, lactic acid 2.1, and albumin 3.2. UA positive for UTI. CXR with no convincing radiographic evidence of pneumonia. EKG demonstrated possible accelerated junctional rhythm without evidence of significant ST elevations or depressions. Pt was treated with IVF and Zosyn. Pt will be admitted to the hospital for treatment and further evaluation of increased weakness, lethargy, and metabolic encephalopathy in the setting of UTI. Review of Systems Review of Systems: Unable to obtain due to patient's mentation [facility] Medical History Mucus plugging of bronchi Respiratory failure with hypoxia and hypercapnia Atelectasis of left lung BPH (benign prostatic hyperplasia) Frequent falls On beta priscilla at home Overweight (BMI 25.0-29.9) Depression Urothelial carcinoma of bladder Vitamin B12 deficiency Vitamin D deficiency GERD without esophagitis Anemia Primary osteoarthritis, right shoulder Osteoarthritis of both knees Chronic kidney disease, stage III (moderate) Impaired fasting glucose Elevated liver enzymes Subdural hematoma Benign essential hypertension Pure hypercholesterolemia Coronary artery disease Family History Father CVD (cardiovascular disease) Mother Hypertension Surgical History History of tonsillectomy History of transurethral resection of bladder tumor (TURBT) History of hip surgery History of transurethral resection of prostate History of shoulder surgery Social History Household Members: Other Housing: Senior Living Housing Other:: [employer] Are you a primary pediatric care coordinator to a significant other at home: No Do you presently have visiting nurse or other home services: No Alcohol intake: former Patient Tobacco Use Status: Former Tobacco user Smoked in Last 30 Days: No Use of substances other than those prescribed or required for medical reasons: No Advance Directives: Yes Advance Directives on File: Yes Advance Directives Date on File: 08/18/22 Do you have a plan to hurt others: No Plan service: Yes Meds Allergies Allergy/AdvReac Type Severity Reaction Status Date / Time lisinopril Allergy Unknown Verified 12/03/23 13:38 Home Medications ?Medication ?Instructions ?Recorded ?Confirmed ?Last Taken ?Type atorvastatin 80 mg tablet 40 mg PO BEDTIME 03/25/20 12/03/23 12/03/23 08:00 History ezetimibe 10 mg tablet 10 mg PO DAILY 03/25/20 12/03/23 12/03/23 08:00 History latanoprost 0.005 % eye drops 1 drp ophthalmic (eye) DAILY 07/03/20 12/03/23 12/03/23 08:00 History vitamins A,C,M-wkps-ojslpc 2,148 1 tab PO BID 07/03/20 12/03/23 12/03/23 08:00 History mcg-113 mg-45 mg-17.4 mg tablet (PreserVision AREDS) acetaminophen 325 mg tablet 650 mg PO Q6H PRN pain/ fever 08/06/22 12/03/23 12/03/23 08:00 History albuterol sulfate 90 mcg/actuation 2 puff inhalation Q4H PRN Wheezing 08/06/22 12/03/23 12/03/23 08:00 History aerosol inhaler (ProAir HFA) amlodipine 10 mg tablet 10 mg PO DAILY 08/06/22 12/03/23 12/03/23 08:00 History cyanocobalamin (vitamin B-12) 2,000 mcg PO DAILY 08/06/22 12/03/23 12/03/23 08:00 History 1,000 mcg tablet escitalopram oxalate 5 mg tablet 5 mg PO DAILY 08/06/22 12/03/23 12/03/23 08:00 History hydrochlorothiazide 25 mg tablet 25 mg PO DAILY 08/06/22 12/03/23 12/03/23 08:00 History magnesium oxide 400 mg PO DAILY 08/06/22 12/03/23 12/03/23 08:00 History metoprolol succinate 50 mg 50 mg PO DAILY 08/06/22 12/03/23 12/03/23 08:00 History tablet,extended release 24 hr folic acid 1 mg tablet 1 mg PO DAILY 09/10/22 12/03/23 12/03/23 08:00 History ascorbic acid (vitamin C) 1,000 mg 500 mg PO DAILY 03/09/23 12/03/23 12/03/23 08:00 History tablet methenamine hippurate 1 gram tablet 1 g PO BID 03/09/23 12/03/23 12/03/23 08:00 History cholecalciferol (vitamin D3) 25 25 mcg PO DAILY 12/03/23 12/03/23 12/03/23 08:00 History mcg (1,000 unit) tablet potassium chloride 20 mEq 20 meq PO DAILY 12/03/23 12/03/23 12/03/23 08:00 History tablet,extended release sulfamethoxazole 800 1 tab PO BID 12/03/23 12/03/23 12/03/23 08:00 History mg-trimethoprim 160 mg tablet (Bactrim DS) Physical Exam Vital Signs and Narrative: Vital Signs: Last Vital Signs Temp 97.6 F 12/03/23 15:46 Pulse 69 12/03/23 15:46 Resp 16 09/07/24 15:46 BP 134/66 12/03/23 15:46 Pulse Ox 94 12/03/23 15:46 O2 Del Method Room Air 12/03/23 15:46 BMI result Body Mass Index 27.3 General: AOx3, though not to siutation. In no acute distress Resp: CTA bilaterally CVS: S1, S2, RRR GI: +BS, NT, no distention : Suprapubic catheter in place with no sign infection around insertion site. Andujar bag with gross hematuria, though urine in tubing mostly clear Skin: Warm, dry Neuro: Cranial nerves II-XII grossly intact bilaterally. Motor grossly intact bilaterally. Globalized symmetric weakness. Extremities: No edema Psych: Pleasantly confused Results Labs 12/03/23 13:52 12/03/23 13:52 Labs: Laboratory Results - last 24 hr 12/03/23 12/03/23 13:52 14:43 MCV 93.3 MCH 32.6 MCHC 34.9 RDW 12.4 Plt Count 262 MPV 9.5 Immature Gran % (Auto) 1.5 H Neut % (Auto) 79.7 H Lymph % (Auto) 6.6 L [place] % (Auto) 9.8 Eos % (Auto) 2.2 Baso % (Auto) 0.2 Lymph # (Auto) 1.3 [place] # (Auto) 2.0 H Eos # (Auto) 0.4 Baso # (Auto) 0.1 Abs Immat Gran (auto) 0.31 H Absolute Neuts (auto) 16.0 H Absolute Nucleated RBC 0.000 Nucleated RBC % (auto) 0.0 Smear Tech's Comments VERIFIED Anion Gap 15 Estim Creat Clear Calc 34.9 Estimated GFR 46 Random Glucose 134 H Lactic Acid 2.1 H* Calcium 9.3 Magnesium 1.9 Total Bilirubin 0.5 AST 14 ALT 11 Alkaline Phosphatase 47 Total Protein 6.7 Albumin 3.2 L Urine Color Red A Urine Appearance Turbid Urine pH 5.0 Ur Specific [place] 1.025 Urine Protein 100 (2+) H Urine Glucose (UA) Negative Urine Ketones Negative Urine Blood Moderate (2+) H Urine Nitrite See Note Ur Leukocyte Esterase See Note Urine RBC >20 H Urine WBC 0-5 Ur Squamous Epith Cells 6-10 Urine Bacteria None Seen Hyaline Casts 3-5 Influenza Type A (PCR) NEGATIVE Influenza Type B (PCR) NEGATIVE RSV RNA Qual (PCR) NEGATIVE SARS-CoV-2 RNA (RT-PCR) NEGATIVE Imaging Radiologist's Impressions: Impressions Chest X-Ray 12/03/23 13:40 IMPRESSION: No convincing radiographic evidence of pneumonia. Streaky bibasilar opacities are likely reflecting atelectasis. 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 Pt will be admitted to the hospital for treatment and further evaluation of increased weakness, lethargy, and metabolic encephalopathy in the setting of UTI. Acute metabolic encephalopathy in the setting of UTI Patient with AMS, weakness, lethargy at SNF Pt with suprapubic catheter in place for over a year On amoxicillin 11/27-12/01, switched to Bactrim DS on 12/01 Patient does not meet SIRS criteria: No fever, tachycardia, tachypnea Will treat with Zosyn, started 12/03/2023 ID consult Follow Urine cultures Monitor mentation Hematuria SNF reports since yesterday when suprapubic catheter was replaced Catheter bag showing gross hematuria, tubing with scant amount and mostly clear H&H stable Will hold Eliquis until urine clears Follow CBC Elevated lactic acid, resolved Lactic acid mildly elevated at 2.1 with repeat 1.2 after fluid No sepsis Paroxysmal AFib Hold Eliquis due to hematuria Continue metoprolol HLD Continue statin, ezetimibe HTN Continue amlodipine, hydrochlorothiazide, metoprolol CKD 3 Creatinine slightly elevated above baseline at 1.44 Pt received 1L IVF Follow BMP DNR/DNI, verified with [facility] and HCP at bedside Attending:?Dr. Watt DVT Prophylaxis: Pneumatic compression as Eliquis on hold due to hematuria Pt will require a hospitalization of at least two nights for treatment of?generalized weakness and acute metabolic encephalopathy in the setting of acute UTI that failed outpatient therapy. Patient will require hospitalization for administration of IV antibiotics while awaiting urine cultures. Quality Stroke Does the patient have a stroke diagnosis?: No VTE Prior VTE?: No VTE Risk Level:: Medical - moderate - high VTE Device Contraindication: N/A - Device Ordered VTE Drug Contraindication: Treatment Not Indicated
[2023-12-03 16:35] LABS: ~Lactic Acid-LAB USE ONLY 1.2 mmol/L (0.5-2.0)
--- NOTE | 2023-12-03 17:01 | PHA.MEDREC ---
Pharmacy Consult ? Medication Reconciliation Pharmacy has completed the medication reconciliation. List from [facility]
[2023-12-03 18:21] VITALS: BP 122/60; PULSE 74; RESP 18; TEMP 37.1; O2SAT 98
--- NOTE | 2023-12-03 18:59 | PC.NURSE ---
Report received from Bhakti JOHNSON, assume care of pt at this time
[2023-12-03 20:50] VITALS: BP 149/68; PULSE 72; RESP 20; TEMP 37.4; O2SAT 93
[2023-12-03] MEDS: Atorvastatin Calcium 40 MG TABLET PO (21:02)
[2023-12-03] MEDS: Docusate Sodium 100 MG CAPSULE PO (21:02)
[2023-12-03] MEDS: Piperacillin Sodium/Tazobactam 2.25 GM in 0.9 % Sodium Chloride 50 ML IV (21:02)
[2023-12-03] MEDS: Multivitamin TABLET 1 TAB PO (21:02)
[2023-12-03 23:59] VITALS: BP 126/58; PULSE 65; RESP 18; TEMP 36.5; O2SAT 92
[2023-12-04] VITALS (7 sets, daily range): BP systolic 126–142; BP diastolic 51–78; PULSE 71–93; RESP 16–20; TEMP 36.3–37.4; O2SAT 93–96; BMI 29.0
[2023-12-04] MEDS: Acetaminophen 325 MG TABLET 650 MG PO (02:40)
[2023-12-04] MEDS: Piperacillin Sodium/Tazobactam 2.25 GM in 0.9 % Sodium Chloride 50 ML IV ×2 (02:48→11:05)
[2023-12-04] MEDS: 0.9 % Sodium Chloride Flush 3 ML SYRINGE IVFLUSH ×3 (02:49→17:19)
--- NOTE | 2023-12-04 04:15 | PM.EVENT ---
Event Note Date of Service: 12/04/23 Event Note: Blood Cx 12/02 1/2 GNR, already on Zosyn. Follow sensitivity Time Spent With Patient Time: Total time managing care of this patient today ____ minutes.
[2023-12-04 05:24] LABS: Hematocrit 30.7 % (42.0-52.0); Mean Corpuscular HGB Conc 35.8 g/dl (31.0-36.0); Mean Corpuscular Hemoglobin 32.8 pg (27.0-33.0); Mean Corpuscular Volume 91.6 fL (80.0-98.0); Mean Platelet Volume 9.3 fL (9.4-12.4); Platelet Count 243 X10*3/uL (160-400); Red Blood Count 3.35 X10*6/uL (4.60-5.80); Red Cell Distribution Width 12.3 % (11.0-16.0); White Blood Count 16.7 X10*3/uL (4.8-10.8)
[2023-12-04 05:42] LABS: Anion Gap 13 (12-20); Blood Urea Nitrogen 25 mg/dL (9-16); Calcium 8.8 mg/dL (8.4-10.2); Carbon Dioxide 24 mmol/L (22-29); Chloride 103 mmol/L (96-108); Creatinine Clr Calc Pharmacy 41.2; Estimated Glomerular Filt Rate 50; Glucose Random 117 mg/dL (60-115); Potassium 4.1 mmol/L (3.3-5.1); Sodium 136 mmol/L (135-145)
[2023-12-04] MEDS: Ascorbic Acid 500 MG TABLET PO (11:05)
[2023-12-04] MEDS: Escitalopram Oxalate 5 MG TABLET PO (11:05)
[2023-12-04] MEDS: Cholecalciferol (Vitamin D3) 25 MCG TABLET PO (11:05)
[2023-12-04] MEDS: Magnesium Oxide 400 MG TABLET PO (11:06)
[2023-12-04] MEDS: Cyanocobalamin (Vitamin B-12) 1,000 MCG TABLET 2000 MCG PO (11:06)
[2023-12-04] MEDS: Metoprolol Succinate ER 50 MG TAB.ER.24H PO (11:06)
[2023-12-04] MEDS: Potassium Chloride ER 20 MEQ TAB.ER.PRT PO (11:06)
[2023-12-04] MEDS: Multivitamin TABLET 1 TAB PO ×2 (11:07→19:17)
[2023-12-04] MEDS: amLODIPine Besylate 10 MG TABLET PO (11:07)
[2023-12-04] MEDS: Docusate Sodium 100 MG CAPSULE PO ×2 (11:07→19:16)
[2023-12-04] MEDS: Ezetimibe 10 MG TABLET PO (11:07)
[2023-12-04] MEDS: hydroCHLOROthiazide 25 MG TABLET PO (11:07)
[2023-12-04] MEDS: Folic Acid 1 MG TABLET PO (11:07)
[2023-12-04] MEDS: Latanoprost 0.005 % Ophth Sol 2.5 ML DROPS 1 DROP EYE-BOTH (11:11)
--- NOTE | 2023-12-04 13:57 | P.PNIM_ITS ---
Subjective Subjective Date of Service: 12/04/23 Interval History: seen and evaluated confused feels better hematuria improving no reported other events Review of Systems Review of Systems: Yes all other systems are reviewed and are negative Physical Exam 2 Vital Signs: Vital Signs: Last Vital Signs Temp 97.4 F 12/04/23 11:16 Pulse 76 12/04/23 11:16 Resp 16 12/04/23 11:16 BP 142/78 H 12/04/23 11:16 Pulse Ox 96 12/04/23 11:16 O2 Del Method Room Air 12/04/23 11:16 BMI result Body Mass Index 29.0 Const: Other: Constitutional : interactive, not in distress Cardiovascular : no JVP, no lower extremity edema Respiratory : bilateral chest movement, not in resp distress Gastrointestinal: soft, lax, Non tender Skin : Warm, Dry Neurological : Alert & disoriented , No focal deficit Objective Data Active Medications Acetaminophen (Acetaminophen 325 Mg Tablet) 650 mg PO Q6H PRN PRN Reason: Pain, Mild (Pain Scale 1-3), fever or headache Last Admin: 12/04/23 02:40 Dose: 650 mg Documented By: DESMOND Albuterol Sulfate (Albuterol Sulfate 90 Mcg 8 Gm Inhaler) 2 puff INHALE RQ4H PRN PRN Reason: Wheezing Amlodipine Besylate (Amlodipine Besylate 10 Mg Tablet) 10 mg PO DAILY [facility]; Protocol Last Admin: 12/04/23 11:07 Dose: 10 mg Documented By: ANAY Ascorbic Acid (Ascorbic Acid 500 Mg Tablet) 500 mg PO DAILY [facility] Last Admin: 12/04/23 11:05 Dose: 500 mg Documented By: ANAY Atorvastatin Calcium (Atorvastatin Calcium 40 Mg Tablet) 40 mg PO BEDTIME [facility] Last Admin: 12/03/23 21:02 Dose: 40 mg Documented By: DESMOND Benzonatate (Benzonatate 100 Mg Capsule) 100 mg PO TID PRN PRN Reason: Cough Calcium Carbonate (Calcium Carbonate 750 Mg Tab.Chew) 750 mg PO Q4H PRN PRN Reason: Heartburn Cyanocobalamin (Cyanocobalamin (Vitamin B-12) 1,000 Mcg Tablet) 2,000 mcg PO DAILY [facility] Last Admin: 12/04/23 11:06 Dose: 2,000 mcg Documented By: ANAY Docusate Sodium (Docusate Sodium 100 Mg Capsule) 100 mg PO BID [facility] Last Admin: 12/04/23 11:07 Dose: 100 mg Documented By: ANAY Ezetimibe (Ezetimibe 10 Mg Tablet) 10 mg PO DAILY [facility] Last Admin: 12/04/23 11:07 Dose: 10 mg Documented By: ANAY Escitalopram Oxalate (Escitalopram Oxalate 5 Mg Tablet) 5 mg PO DAILY [facility] Last Admin: 12/04/23 11:05 Dose: 5 mg Documented By: ANAY Folic Acid (Folic Acid 1 Mg Tablet) 1 mg PO DAILY [facility] Last Admin: 12/04/23 11:07 Dose: 1 mg Documented By: ANAY Hydrochlorothiazide (Hydrochlorothiazide 25 Mg Tablet) 25 mg PO DAILY [facility]; Protocol Last Admin: 12/04/23 11:07 Dose: 25 mg Documented By: ANAY Piperacillin Sod/Tazobactam (Sod 3.375 gm/ Sodium Chloride) 50 mls @ 100 mls/hr IV Q6H [facility] Latanoprost (Latanoprost 0.005 % Ophth Lolita 2.5 Ml Drops) 1 drop EYE-BOTH DAILY [facility] Last Admin: 12/04/23 11:11 Dose: 1 drop Documented By: ANAY Magnesium Hydroxide (Milk Of Magnesia 30 Ml Oral.Susp) 30 ml PO DAILY PRN PRN Reason: Constipation Magnesium Oxide (Magnesium Oxide 400 Mg Tablet) 400 mg PO DAILY [facility] Last Admin: 12/04/23 11:06 Dose: 400 mg Documented By: ANAY Melatonin (Melatonin 3 Mg Tablet) 6 mg PO BEDTIME PRN PRN Reason: Insomnia Metoprolol Succinate (Metoprolol Succinate Er 50 Mg Tab.Er.24h) 50 mg PO DAILY [facility]; Protocol Last Admin: 12/04/23 11:06 Dose: 50 mg Documented By: ANAY Multivitamins/Vitamin C (Multivitamin Tablet) 1 tab PO BID [facility] Last Admin: 12/04/23 11:07 Dose: 1 tab Documented By: ANAY Ondansetron HCl (Ondansetron Hcl 4 Mg/2 Ml Vial) 4 mg IVPUSH Q8H PRN PRN Reason: Nausea and Vomiting Potassium Chloride (Potassium Chloride Er 20 Meq Tab.Er.Prt) 20 meq PO DAILY [facility] Last Admin: 12/04/23 11:06 Dose: 20 meq Documented By: ANAY Sodium Chloride (0.9 % Sodium Chloride Flush 3 Ml Syringe) 3 ml IVFLUSH QSHIFT [facility] Last Admin: 12/04/23 11:08 Dose: 3 ml Documented By: ANAY Vitamin D (Cholecalciferol (Vitamin D3) 25 Mcg Tablet) 25 mcg PO DAILY [facility] Last Admin: 12/04/23 11:05 Dose: 25 mcg Documented By: ANAY Labs 12/04/23 05:11 12/04/23 05:11 Labs: Laboratory Results - last 24 hr 12/03/23 12/03/23 12/03/23 13:52 14:43 16:15 MCV 93.3 MCH 32.6 MCHC 34.9 RDW 12.4 Plt Count 262 MPV 9.5 Immature Gran % (Auto) 1.5 H Neut % (Auto) 79.7 H Lymph % (Auto) 6.6 L Bennett % (Auto) 9.8 Eos % (Auto) 2.2 Baso % (Auto) 0.2 Lymph # (Auto) 1.3 Bennett # (Auto) 2.0 H Eos # (Auto) 0.4 Baso # (Auto) 0.1 Abs Immat Gran (auto) 0.31 H Absolute Neuts (auto) 16.0 H Absolute Nucleated RBC 0.000 Nucleated RBC % (auto) 0.0 Smear Tech's Comments VERIFIED Anion Gap 15 Estim Creat Clear Calc 34.9 Estimated GFR 46 Random Glucose 134 H Lactic Acid 2.1 H* Lactic Acid F/U @ 2Hr 1.2 Calcium 9.3 Magnesium 1.9 Total Bilirubin 0.5 AST 14 ALT 11 Alkaline Phosphatase 47 Total Protein 6.7 Albumin 3.2 L Urine Color Red A Urine Appearance Turbid Urine pH 5.0 Ur Specific [place] 1.025 Urine Protein 100 (2+) H Urine Glucose (UA) Negative Urine Ketones Negative Urine Blood Moderate (2+) H Urine Nitrite See Note Ur Leukocyte Esterase See Note Urine RBC >20 H Urine WBC 0-5 Ur Squamous Epith Cells 6-10 Urine Bacteria None Seen Hyaline Casts 3-5 Influenza Type A (PCR) NEGATIVE Influenza Type B (PCR) NEGATIVE RSV RNA Qual (PCR) NEGATIVE SARS-CoV-2 RNA (RT-PCR) NEGATIVE 12/04/23 05:11 MCV 91.6 MCH 32.8 MCHC 35.8 RDW 12.3 Plt Count 243 MPV 9.3 L Immature Gran % (Auto) Neut % (Auto) Lymph % (Auto) Bennett % (Auto) Eos % (Auto) Baso % (Auto) Lymph # (Auto) Bennett # (Auto) Eos # (Auto) Baso # (Auto) Abs Immat Gran (auto) Absolute Neuts (auto) Absolute Nucleated RBC 0.000 Nucleated RBC % (auto) 0.0 Smear Tech's Comments Anion Gap 13 Estim Creat Clear Calc 41.2 Estimated GFR 50 Random Glucose 117 H Lactic Acid Lactic Acid F/U @ 2Hr Calcium 8.8 Magnesium Total Bilirubin AST ALT Alkaline Phosphatase Total Protein Albumin Urine Color Urine Appearance Urine pH Ur Specific [place] Urine Protein Urine Glucose (UA) Urine Ketones Urine Blood Urine Nitrite Ur Leukocyte Esterase Urine RBC Urine WBC Ur Squamous Epith Cells Urine Bacteria Hyaline Casts Influenza Type A (PCR) Influenza Type B (PCR) RSV RNA Qual (PCR) SARS-CoV-2 RNA (RT-PCR) Microbiology Microbiology Results: Microbiology 12/03/23 13:52 Blood Culture - Preliminary Blood - Venous Prelim: GNR Gram Stain only 12/03/23 13:52 Blood Culture - Preliminary Blood - Venous Prelim: GNR Gram Stain only Assessment and Plan (1) Metabolic encephalopathy: Status: Acute (2) Hematuria: Status: Acute (3) Acute UTI: Status: Acute Plan Pt is an 88-year-old male with a PMH significant for?paroxysmal AFib on Eliquis, COPD, HTN, HLD, CKD 3, bladder cancer, BPH, and 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 Pt will be admitted to the hospital for treatment and further evaluation of increased weakness, lethargy, and metabolic encephalopathy in the setting of UTI. Acute metabolic encephalopathy 2/2 acute UTI w SPC still confused Pt with suprapubic catheter in place for over a year Continue Zosyn, started 12/03/2023 ID consult Follow Urine cultures Monitor mentation; reorientation Hematuria Suprapubic catheter was replaced day prior to admission clearing up H&H stable Hold Eliquis today, restart Follow CBC Elevated lactic acid, resolved Paroxysmal AFib Hold Eliquis due to hematuria Continue metoprolol HLD Continue statin, ezetimibe HTN Continue amlodipine, hydrochlorothiazide, metoprolol CKD 3 Creatinine improved to 1.35 Follow BMP DNR/DNI, verified with [facility] and HCP at bedside DVT Prophylaxis: Pneumatic compression as Eliquis on hold due to hematuria Pt will require a hospitalization overnight for treatment of?generalized weakness and acute metabolic encephalopathy in the setting of acute UTI that failed outpatient therapy. Patient will require hospitalization for administration of IV antibiotics while awaiting urine cultures. Quality Stroke Does the patient have a stroke diagnosis?: No VTE Prior VTE?: No VTE Risk Level:: Medical - moderate - high VTE Device Contraindication: N/A - Device Ordered VTE Drug Contraindication: Treatment Not Indicated
[2023-12-04] MEDS: Piperacillin Sodium/Tazobactam 3.375 GM in 0.9 % Sodium Chloride 50 ML IV ×2 (18:20→22:03)
[2023-12-04] MEDS: Atorvastatin Calcium 40 MG TABLET PO (19:17)
[2023-12-05] VITALS (7 sets, daily range): BP systolic 130–152; BP diastolic 63–74; PULSE 69–93; RESP 15–20; TEMP 36.3–37.5; O2SAT 92–95
[2023-12-05] MEDS: 0.9 % Sodium Chloride Flush 3 ML SYRINGE IVFLUSH ×4 (00:36→23:37)
[2023-12-05] MEDS: Piperacillin Sodium/Tazobactam 3.375 GM in 0.9 % Sodium Chloride 50 ML IV ×4 (04:52→22:53)
[2023-12-05 06:09] LABS: Hematocrit 31.5 % (42.0-52.0); Hemoglobin 10.8 g/dl (14.0-18.0); Mean Corpuscular HGB Conc 34.3 g/dl (31.0-36.0); Mean Corpuscular Volume 93.5 fL (80.0-98.0); Mean Platelet Volume 9.5 fL (9.4-12.4); Platelet Count 265 X10*3/uL (160-400); Red Blood Count 3.37 X10*6/uL (4.60-5.80); Red Cell Distribution Width 12.4 % (11.0-16.0)
[2023-12-05 06:23] LABS: Anion Gap 14 (12-20); Blood Urea Nitrogen 21 mg/dL (9-16); Calcium 8.8 mg/dL (8.4-10.2); Carbon Dioxide 22 mmol/L (22-29); Chloride 103 mmol/L (96-108); Creatinine Clr Calc Pharmacy 44.9; Estimated Glomerular Filt Rate 55; Glucose Random 102 mg/dL (60-115); Potassium 4.1 mmol/L (3.3-5.1); Sodium 135 mmol/L (135-145)
[2023-12-05 06:24] LABS: Anion Gap 14 (12-20); Blood Urea Nitrogen 21 mg/dL (9-16); Calcium 8.7 mg/dL (8.4-10.2); Carbon Dioxide 22 mmol/L (22-29); Chloride 104 mmol/L (96-108); Creatinine Clr Calc Pharmacy 44.1; Estimated Glomerular Filt Rate 54; Glucose Random 102 mg/dL (60-115); Potassium 4.1 mmol/L (3.3-5.1); Sodium 136 mmol/L (135-145)
[2023-12-05] MEDS: Folic Acid 1 MG TABLET PO (07:58)
[2023-12-05] MEDS: Ascorbic Acid 500 MG TABLET PO (07:58)
[2023-12-05] MEDS: Metoprolol Succinate ER 50 MG TAB.ER.24H PO (07:58)
[2023-12-05] MEDS: Potassium Chloride ER 20 MEQ TAB.ER.PRT PO (07:58)
[2023-12-05] MEDS: Ezetimibe 10 MG TABLET PO (07:58)
[2023-12-05] MEDS: Escitalopram Oxalate 5 MG TABLET PO (07:59)
[2023-12-05] MEDS: Multivitamin TABLET 1 TAB PO ×2 (07:59→19:13)
[2023-12-05] MEDS: Magnesium Oxide 400 MG TABLET PO (07:59)
[2023-12-05] MEDS: Cyanocobalamin (Vitamin B-12) 1,000 MCG TABLET 2000 MCG PO (07:59)
[2023-12-05] MEDS: Docusate Sodium 100 MG CAPSULE PO ×2 (07:59→19:13)
[2023-12-05] MEDS: Cholecalciferol (Vitamin D3) 25 MCG TABLET PO (07:59)
[2023-12-05] MEDS: amLODIPine Besylate 10 MG TABLET PO (07:59)
[2023-12-05] MEDS: hydroCHLOROthiazide 25 MG TABLET PO (08:00)
[2023-12-05] MEDS: Latanoprost 0.005 % Ophth Sol 2.5 ML DROPS 1 DROP EYE-BOTH (08:02)
--- NOTE | 2023-12-05 11:20 | P.PNIM_ITS ---
Subjective Subjective Date of Service: 12/05/23 Interval History: seen and evaluated more alert and interactive but can get easily confused feels better hematuria resolved no reported other events Review of Systems Review of Systems: Yes all other systems are reviewed and are negative Physical Exam 2 Vital Signs: Vital Signs: Last Vital Signs Temp 99.5 F 12/05/23 08:00 Pulse 73 12/05/23 08:00 Resp 19 12/05/23 08:00 BP 152/68 H 12/05/23 08:00 Pulse Ox 92 12/05/23 08:00 O2 Del Method Room Air 12/05/23 08:00 BMI result Body Mass Index 29.0 Const: Other: Constitutional : interactive, not in distress Cardiovascular : no JVP, no lower extremity edema Respiratory : bilateral chest movement, not in resp distress Gastrointestinal: soft, lax, Non tender Skin : Warm, Dry Neurological : Alert & oriented to self and place but gets easily confused , No focal deficit Objective Data Active Medications Acetaminophen (Acetaminophen 325 Mg Tablet) 650 mg PO Q6H PRN PRN Reason: Pain, Mild (Pain Scale 1-3), fever or headache Last Admin: 12/04/23 02:40 Dose: 650 mg Documented By: DESMOND Albuterol Sulfate (Albuterol Sulfate 90 Mcg 8 Gm Inhaler) 2 puff INHALE RQ4H PRN PRN Reason: Wheezing Amlodipine Besylate (Amlodipine Besylate 10 Mg Tablet) 10 mg PO DAILY [facility]; Protocol Last Admin: 12/05/23 07:59 Dose: 10 mg Documented By: DEMAR Ascorbic Acid (Ascorbic Acid 500 Mg Tablet) 500 mg PO DAILY [facility] Last Admin: 12/05/23 07:58 Dose: 500 mg Documented By: DEMAR Atorvastatin Calcium (Atorvastatin Calcium 40 Mg Tablet) 40 mg PO BEDTIME [facility] Last Admin: 12/04/23 19:17 Dose: 40 mg Documented By: AALIYAH Benzonatate (Benzonatate 100 Mg Capsule) 100 mg PO TID PRN PRN Reason: Cough Calcium Carbonate (Calcium Carbonate 750 Mg Tab.Chew) 750 mg PO Q4H PRN PRN Reason: Heartburn Cyanocobalamin (Cyanocobalamin (Vitamin B-12) 1,000 Mcg Tablet) 2,000 mcg PO DAILY [facility] Last Admin: 12/05/23 07:59 Dose: 2,000 mcg Documented By: DEMAR Docusate Sodium (Docusate Sodium 100 Mg Capsule) 100 mg PO BID [facility] Last Admin: 12/05/23 07:59 Dose: 100 mg Documented By: DEMAR Ezetimibe (Ezetimibe 10 Mg Tablet) 10 mg PO DAILY [facility] Last Admin: 12/05/23 07:58 Dose: 10 mg Documented By: DEMAR Escitalopram Oxalate (Escitalopram Oxalate 5 Mg Tablet) 5 mg PO DAILY [facility] Last Admin: 12/05/23 07:59 Dose: 5 mg Documented By: DEMAR Folic Acid (Folic Acid 1 Mg Tablet) 1 mg PO DAILY [facility] Last Admin: 12/05/23 07:58 Dose: 1 mg Documented By: DEMAR Hydrochlorothiazide (Hydrochlorothiazide 25 Mg Tablet) 25 mg PO DAILY [facility]; Protocol Last Admin: 12/05/23 08:00 Dose: 25 mg Documented By: DEMAR Piperacillin Sod/Tazobactam (Sod 3.375 gm/ Sodium Chloride) 50 mls @ 100 mls/hr IV Q6H [facility] Last Admin: 12/05/23 10:52 Dose: 100 mls/hr Documented By: DEMAR Latanoprost (Latanoprost 0.005 % Ophth Lolita 2.5 Ml Drops) 1 drop EYE-BOTH DAILY [facility] Last Admin: 12/05/23 08:02 Dose: 1 drop Documented By: DEMAR Magnesium Hydroxide (Milk Of Magnesia 30 Ml Oral.Susp) 30 ml PO DAILY PRN PRN Reason: Constipation Magnesium Oxide (Magnesium Oxide 400 Mg Tablet) 400 mg PO DAILY [facility] Last Admin: 12/05/23 07:59 Dose: 400 mg Documented By: DEMAR Melatonin (Melatonin 3 Mg Tablet) 6 mg PO BEDTIME PRN PRN Reason: Insomnia Metoprolol Succinate (Metoprolol Succinate Er 50 Mg Tab.Er.24h) 50 mg PO DAILY [facility]; Protocol Last Admin: 12/05/23 07:58 Dose: 50 mg Documented By: DEMAR Multivitamins/Vitamin C (Multivitamin Tablet) 1 tab PO BID [facility] Last Admin: 12/05/23 07:59 Dose: 1 tab Documented By: DEMAR Ondansetron HCl (Ondansetron Hcl 4 Mg/2 Ml Vial) 4 mg IVPUSH Q8H PRN PRN Reason: Nausea and Vomiting Potassium Chloride (Potassium Chloride Er 20 Meq Tab.Er.Prt) 20 meq PO DAILY [facility] Last Admin: 12/05/23 07:58 Dose: 20 meq Documented By: DEMAR Sodium Chloride (0.9 % Sodium Chloride Flush 3 Ml Syringe) 3 ml IVFLUSH QSHIFT [facility] Last Admin: 12/05/23 07:59 Dose: 3 ml Documented By: DEMAR Vitamin D (Cholecalciferol (Vitamin D3) 25 Mcg Tablet) 25 mcg PO DAILY [facility] Last Admin: 12/05/23 07:59 Dose: 25 mcg Documented By: DEMAR Labs 12/05/23 05:42 12/05/23 05:42 Labs: Laboratory Results - last 24 hr 12/05/23 12/05/23 12/05/23 05:42 05:42 05:42 MCV 93.5 MCH 32.0 MCHC 34.3 RDW 12.4 Plt Count 265 MPV 9.5 Absolute Nucleated RBC 0.000 Nucleated RBC % (auto) 0.0 Anion Gap 14 14 Estim Creat Clear Calc 44.9 44.1 Estimated GFR 55 Random Glucose Calcium 12/05/23 12/05/23 12/05/23 05:42 05:42 05:42 MCV MCH MCHC RDW Plt Count MPV Absolute Nucleated RBC Nucleated RBC % (auto) Anion Gap Estim Creat Clear Calc Estimated GFR 54 Random Glucose 102 102 Calcium 8.8 8.7 Microbiology Microbiology Results: Microbiology 12/03/23 13:52 Blood Culture - Preliminary Blood - Venous Gram negative luz 12/03/23 13:52 Blood Culture - Preliminary Blood - Venous Gram negative luz Assessment and Plan (1) Metabolic encephalopathy: Status: Acute (2) Hematuria: Status: Acute (3) Acute UTI: Status: Acute (4) Bacteremia due to Pseudomonas: Status: Acute Plan Pt is an 88-year-old male with a PMH significant for?paroxysmal AFib on Eliquis, COPD, HTN, HLD, CKD 3, bladder cancer, BPH, and 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 Pt will be admitted to the hospital for treatment and further evaluation of increased weakness, lethargy, and metabolic encephalopathy in the setting of UTI. Acute metabolic encephalopathy 2/2 acute UTI w SPC complicated with pseudomonas bacteremia still confused but overall better Pt with suprapubic catheter in place for over a year Continue Zosyn, started 12/03/2023 Urine and blood cultures growing Pseudomonas Midline for 2 weeks of IV Abx ID consult Monitor mentation; reorientation Hematuria Suprapubic catheter was replaced day prior to admission clearing up H&H stable Hold Eliquis today, restart upon discharge Follow CBC Elevated lactic acid, resolved Paroxysmal AFib Hold Eliquis due to hematuria Continue metoprolol HLD Continue statin, ezetimibe HTN Continue amlodipine, hydrochlorothiazide, metoprolol CKD 3 Creatinine improved to 1.35 Follow BMP DNR/DNI, verified with [facility] and HCP at bedside DVT Prophylaxis: Pneumatic compression as Eliquis on hold due to hematuria Pt will require a hospitalization overnight for treatment of?generalized weakness and acute metabolic encephalopathy in the setting of acute UTI that failed outpatient therapy. Patient will require hospitalization for administration of IV antibiotics while awaiting urine cultures. Quality Stroke Does the patient have a stroke diagnosis?: No VTE Prior VTE?: No VTE Risk Level:: Medical - moderate - high VTE Device Contraindication: N/A - Device Ordered VTE Drug Contraindication: Treatment Not Indicated
--- NOTE | 2023-12-05 12:57 | MHC.CM.PN ---
IMM 12/05/23, sent to HCP / , Michelle because pt. currently confused. He resides at [facility], he requires assistance for all ADLs and uses a W/C. DCP is to return to [facility] via BLS. CM to follow and assist with DC plan.
--- NOTE | 2023-12-05 16:06 | P.CDIM_ITS ---
PROVIDER RESPONSE TEXT: To clarify, the appropriate diagnosis supported by the clinical indicators: Acute lactic acidosis QUERY TEXT: PHYSICIAN'S DOCUMENTATION REQUEST Date of Query: 12/05/2023 11:18 AM EDT Patient Name: Maik Lynch Admit Date: 12/03/2023 Dear Didier Villatoro MD, A review of the medical record indicates additional documentation may be needed. Please review below and update the documentation accordingly. Clinical Indicators: Progress note within the Plan: Elevated lactic acid, resolved. LA 2.1 repeat 1.2 after fluids. Clarify which of the following accurately represents the acuity of the Lactic acid: Possible options might include: Acute lactic acidosis Chronic lactic acidosis Other (explain) Clinically unable to determine (explain) Thank you, Mariajose Moncada, CCS, CDIS Use of terms such as suspected, likely, concern for, or probable (associated with a specific diagnosi s that is being evaluated, monitored, or treated as if it exists) are acceptable and can be coded in the inpatient se tting, when documented at the time of discharge. Please use your independent medical judgment in providing your response. THIS QUERY IS PART OF THE PERMANENT MEDICAL RECORD
[2023-12-05] MEDS: Atorvastatin Calcium 40 MG TABLET PO (19:13)
[2023-12-05] MEDS: Melatonin 3 MG TABLET 6 MG PO (19:13)
[2023-12-06 03:49] VITALS: BP 157/79; PULSE 72; RESP 20; TEMP 35.9; O2SAT 95
[2023-12-06] MEDS: Piperacillin Sodium/Tazobactam 3.375 GM in 0.9 % Sodium Chloride 50 ML IV ×2 (05:30→10:29)
[2023-12-06 06:14] LABS: Anion Gap 12 (12-20); Blood Urea Nitrogen 19 mg/dL (9-16); Calcium 8.8 mg/dL (8.4-10.2); Carbon Dioxide 23 mmol/L (22-29); Chloride 104 mmol/L (96-108); Creatinine Clr Calc Pharmacy 40.9; Estimated Glomerular Filt Rate 50; Glucose Random 95 mg/dL (60-115); Sodium 135 mmol/L (135-145)
[2023-12-06 06:18] LABS: Hematocrit 31.9 % (42.0-52.0); Hemoglobin 10.9 g/dl (14.0-18.0); Mean Corpuscular HGB Conc 34.2 g/dl (31.0-36.0); Mean Corpuscular Volume 93.5 fL (80.0-98.0); Mean Platelet Volume 9.6 fL (9.4-12.4); Platelet Count 267 X10*3/uL (160-400); Red Blood Count 3.41 X10*6/uL (4.60-5.80); Red Cell Distribution Width 12.3 % (11.0-16.0); White Blood Count 13.6 X10*3/uL (4.8-10.8)
[2023-12-06 07:30] VITALS: BP 132/69; PULSE 69; RESP 18; TEMP 37.1; O2SAT 97
[2023-12-06 10:27] VITALS: BP 130/75; PULSE 74
[2023-12-06] MEDS: Magnesium Oxide 400 MG TABLET PO (10:27)
[2023-12-06] MEDS: Escitalopram Oxalate 5 MG TABLET PO (10:27)
[2023-12-06] MEDS: Metoprolol Succinate ER 50 MG TAB.ER.24H PO (10:27)
[2023-12-06] MEDS: Folic Acid 1 MG TABLET PO (10:27)
[2023-12-06] MEDS: amLODIPine Besylate 10 MG TABLET PO (10:27)
[2023-12-06] MEDS: Ezetimibe 10 MG TABLET PO (10:28)
[2023-12-06] MEDS: Cyanocobalamin (Vitamin B-12) 1,000 MCG TABLET 2000 MCG PO (10:28)
[2023-12-06] MEDS: Multivitamin TABLET 1 TAB PO (10:28)
[2023-12-06] MEDS: hydroCHLOROthiazide 25 MG TABLET PO (10:28)
[2023-12-06] MEDS: Potassium Chloride ER 20 MEQ TAB.ER.PRT PO (10:29)
[2023-12-06] MEDS: Docusate Sodium 100 MG CAPSULE PO (10:29)
[2023-12-06] MEDS: Cholecalciferol (Vitamin D3) 25 MCG TABLET PO (10:29)
[2023-12-06] MEDS: Ascorbic Acid 500 MG TABLET PO (10:30)
[2023-12-06] MEDS: 0.9 % Sodium Chloride Flush 3 ML SYRINGE IVFLUSH ×2 (10:33→16:51)
[2023-12-06] MEDS: Latanoprost 0.005 % Ophth Sol 2.5 ML DROPS 1 DROP EYE-BOTH (10:33)
--- NOTE | 2023-12-06 10:34 | MHC.CM.PN ---
PT MEDICALLY CLEARED FOR DC BACK TO LTC AT [facility], ZEN CONTACTED [facility] AND SPOKE TO NURSE ON UNIT AND HE REQUESTED DC SUMMARY BE FAXED TO [phone] ONCE COMPLETE, ZEN CONTACTED PT'S [facility] AT 10:30AM #ON FILE, [facility] AGREEABLE TO PLAN, SARAH FOR TRANSPORT AT 3:30PM.
[2023-12-06] MEDS: cefEPime HCl 2 GM in 0.9 % Sodium Chloride 50 ML IV (11:03)
[2023-12-06 11:06] VITALS: BP 130/75; PULSE 74; RESP 18; TEMP 36.2; O2SAT 95
--- NOTE | 2023-12-06 12:39 | PM.DS ---
DS: Providers Provider Date of Service: 12/06/23 Date of admission: 12/03/23 16:55 Date of discharge: 12/06/23 Primary care physician: Emily Lin CNP Consults: 12/03/23 17:34 Consult to Infectious Diseases Routine Consulting Provider: 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 Patient is alert and oriented x3, though not to situation and is in general a poor historian. HPI is thus obtained from chart and provider review as well as family who is at bedside. Patient was recently diagnosed with a UTI and started on amoxicillin from 11/27-12/01 when he was switched to bactrim. Over the past week patient has been intermittently confused and weaker than normal. Repeat labs yesterday and today showed an increase in patient's wbc's, coupled with his weakness, lethargy, and altered mental status, was then sent into the ED for further evaluation. Patient himself reports has been eating less than normal lately, otherwise does not have any acute medical complaints. reports patient is appears closer to baseline mentally than he did earlier, though is weaker than normal. At baseline is primarily wheelchair-bound, though can move his chair with his feet.? In the ED pt's vitals largely WNL. Labs were significant for leukocytosis of 20.1, stable H&H of 11.7/33.5, sodium 134, BUN 30, creatinine 1.44, lactic acid 2.1, and albumin 3.2. UA positive for UTI. CXR with no convincing radiographic evidence of pneumonia. EKG demonstrated possible accelerated junctional rhythm without evidence of significant ST elevations or depressions. Pt was treated with IVF and Zosyn. Pt will be admitted to the hospital for treatment and further evaluation of increased weakness, lethargy, and metabolic encephalopathy in the setting of UTI. Hospital course the patient was treated for Acute metabolic encephalopathy secondary to acute UTI w Supra Pubic Catheter complicated with Klebsiella bacteremia The patient with suprapubic catheter in place for over a year and history of pseudomonas UTI. His urine culture grew >10,000 Pseudomonas and he was started on Zosyn, started 12/03/2023 with fair response as WBC trended down and his mentation improved back close to baseline which he has confusion at baseline. Blood cultures grew Klebsiella sensitive to Ceftriaxone. Midline for 2 weeks of IV Abx of Ceftriaxone as he was evaluated by ID specialist. To finish total of 2 weeks of antibiotics. Midline in place. 11 more days of Ceftriaxone upon discharge. On presentation he had Hematuria as his Suprapubic catheter was replaced day prior to admission. Urine cleared up as Eliquis was held. [facility]. Discharge plan Continue Ceftriaxone for 11 more days Discontinue Bactrim Time Attestation Discharge Coordination Time (in mins): 38 Quality: Safe Use of Opioids Does Pt have an Active Cancer Diagnosis on the Problem List?: No Quality: Stroke Does the patient have a stroke diagnosis?: No Physical Exam Vital Signs: Vital Signs: Last Vital Signs Temp 97.1 F 12/06/23 11:06 Pulse 74 12/06/23 11:06 Resp 18 12/06/23 11:06 BP 130/75 12/06/23 11:06 Pulse Ox 95 12/06/23 11:06 O2 Del Method Room Air 12/06/23 11:06 BMI result Body Mass Index 29.0 Const: Other: Constitutional : interactive, not in distress Cardiovascular : no JVP, no lower extremity edema Respiratory : bilateral chest movement, not in resp distress Gastrointestinal: soft, lax, Non tender Skin : Warm, Dry Urology: suprapubic catheter in place. Neurological : Alert & oriented to self and place but gets easily confused , No focal deficit DS: Data Data Completed and Pending Completed studies during hospitalization [Text1]: Procedures Assistance with Respiratory Ventilation, Less than 24 Consecutive Hours, Continuous Positive Airway Pressure (01/03/23) Reposition Right Upper Femur with Intramedullary Internal Fixation Device, Percutaneous Approach (07/03/20) Transfusion of Nonautologous Red Blood Cells into Peripheral Vein, Percutaneous Approach (07/03/20) Labs on day of discharge: Laboratory Results - last 24 hr 12/06/23 05:43 WBC 13.6 H RBC 3.41 L Hgb 10.9 L Hct 31.9 L MCV 93.5 MCH 32.0 MCHC 34.2 RDW 12.3 Plt Count 267 MPV 9.6 Absolute Nucleated RBC 0.000 Nucleated RBC % (auto) 0.0 Sodium 135 Potassium 4.0 Chloride 104 Carbon Dioxide 23 Anion Gap 12 BUN 19 H Creatinine 1.36 Estim Creat Clear Calc 40.9 Estimated GFR 50 Random Glucose 95 Calcium 8.8 Imaging Chest x-ray: Radiologist's impression: ITS Impressions Chest X-Ray 12/03/23 13:40 IMPRESSION: No convincing radiographic evidence of pneumonia. Streaky bibasilar opacities are likely reflecting atelectasis. Electronically signed by: Mick Watts MD 12/03/2023 03:34 PM EDT RP Workstation: Chloe + Isabel Discharge Plan Discharge Anticipated Discharge Date/Time: 12/06/23 12:35 Patient Disposition: Xfer SNF Discharge Diagnosis: Klebsiella Bacteremia UTI Encephalopathy Hematuria Referrals: [facility] [Outside] - 1 Day (RESUMPTION OF LTC) Emily Lin CNP [Primary Care Provider] - 1 Week Discharge Medications: New ceftriaxone 1 gram recon soln 1 g IV Q24H 11 Days Continued PreserVision AREDS 7,160 unit- 113 mg-100 unit Tablet 1 tab PO BID latanoprost 0.005 % Drops 1 drp ophthalmic (eye) DAILY Rx Instructions: BOTH EYES acetaminophen 325 mg Tablet 650 mg PO Q6H PRN (Reason: pain/ fever) metoprolol succinate 50 mg tablet extended release 24 hr 50 mg PO DAILY hydrochlorothiazide 25 mg Tablet 25 mg PO DAILY escitalopram oxalate 5 mg tablet 5 mg PO DAILY amlodipine 10 mg Tablet 10 mg PO DAILY cyanocobalamin (vitamin B-12) 1,000 mcg Tablet 2,000 mcg PO DAILY magnesium oxide 400 mg magnesium Tablet 400 mg PO DAILY albuterol sulfate [ProAir HFA] 90 mcg/actuation Hfa Aerosol Inhaler 2 puff INHALATION Q4H PRN (Reason: Wheezing) docusate sodium 100 mg Capsule 100 mg PO BID Qty: 60 0RF Eliquis 2.5 mg Tablet 2.5 mg PO BID Qty: 60 0RF cholecalciferol (vitamin D3) 25 mcg (1,000 unit) Tablet 25 mcg PO DAILY potassium chloride 20 mEq Tablet Extended Release 20 meq PO DAILY atorvastatin 80 mg tablet 40 mg PO BEDTIME ezetimibe 10 mg tablet 10 mg PO DAILY ascorbic acid (vitamin C) 1,000 mg tablet 500 mg PO DAILY methenamine hippurate 1 gram tablet 1 g PO BID folic acid 1 mg tablet 1 mg PO DAILY Discontinued sulfamethoxazole-trimethoprim [Bactrim DS] 800-160 mg Tablet 1 tab PO BID Rx Instructions: x 10 days, started on 11/27/23 Discharge Orders: Discharge Order (Routine); Ordered 12/06/23 Ordered By: Didier Villatoro Diet: Advance to usual diet Activity on Discharge: As tolerated Stand Alone Forms: Patient Portal Discharge page Print Language: Tamazight Care Plan Goals: Continue Ceftriaxone for 11 more days Discontinue Bactrim Health Concerns: Read below Plan of Treatment: Read below Assessment: Read below
--- NOTE | 2023-12-08 22:30 | P.CNID_ITS ---
History of Present Illness Data of Consult Service Date: 12/05/23 Requesting physician: Didier Villatoro Primary Care Provider: Emily Lin CNP [facility] Reason for consult: encephalopathy He presents with confusion. He has suprapubic cath and no organism from Review of Systems 2 Review of Systems: Yes all other systems are reviewed and are negative [facility] Past Medical History Medical History Mucus plugging of bronchi Respiratory failure with hypoxia and hypercapnia Atelectasis of left lung BPH (benign prostatic hyperplasia) Frequent falls On beta priscilla at home Overweight (BMI 25.0-29.9) Depression Urothelial carcinoma of bladder Vitamin B12 deficiency Vitamin D deficiency GERD without esophagitis Anemia Primary osteoarthritis, right shoulder Osteoarthritis of both knees Chronic kidney disease, stage III (moderate) Impaired fasting glucose Elevated liver enzymes Subdural hematoma Benign essential hypertension Pure hypercholesterolemia Coronary artery disease Family History Family History Father CVD (cardiovascular disease) Mother Hypertension Surgical History Surgical History History of tonsillectomy History of transurethral resection of bladder tumor (TURBT) History of hip surgery History of transurethral resection of prostate History of shoulder surgery Social History Social History Household Members: Other Housing: Half-Way Housing Other:: [facility] Are you a primary care navigator to a significant other at home: No Do you presently have visiting nurse or other home services: No Alcohol intake: former Patient Tobacco Use Status: Former Tobacco user Advance Directives Date on File: 08/18/22 service: Yes Meds Allergies Allergy/AdvReac Type Severity Reaction Status Date / Time lisinopril Allergy Unknown Verified 12/31/23 10:56 Home Medications ?Medication ?Instructions ?Recorded ?Confirmed ?Last Taken ?Type atorvastatin 80 mg tablet 40 mg PO BEDTIME 03/25/20 12/03/23 12/03/23 08:00 History ezetimibe 10 mg tablet 10 mg PO DAILY 03/25/20 12/03/23 12/03/23 08:00 History latanoprost 0.005 % eye drops 1 drp ophthalmic (eye) DAILY 07/03/20 12/03/23 12/03/23 08:00 History vitamins A,C,Y-mmni-mxmdsh 2,148 1 tab PO BID 07/03/20 12/03/23 12/03/23 08:00 History mcg-113 mg-45 mg-17.4 mg tablet (PreserVision AREDS) acetaminophen 325 mg tablet 650 mg PO Q6H PRN pain/ fever 08/06/22 12/03/23 12/03/23 08:00 History albuterol sulfate 90 mcg/actuation 2 puff inhalation Q4H PRN Wheezing 08/06/22 12/03/23 12/03/23 08:00 History aerosol inhaler (ProAir HFA) amlodipine 10 mg tablet 10 mg PO DAILY 08/06/22 12/03/23 12/03/23 08:00 History cyanocobalamin (vitamin B-12) 2,000 mcg PO DAILY 08/06/22 12/03/23 12/03/23 08:00 History 1,000 mcg tablet escitalopram oxalate 5 mg tablet 5 mg PO DAILY 08/06/22 12/03/23 12/03/23 08:00 History hydrochlorothiazide 25 mg tablet 25 mg PO DAILY 08/06/22 12/03/23 12/03/23 08:00 History magnesium oxide 400 mg PO DAILY 08/06/22 12/03/23 12/03/23 08:00 History metoprolol succinate 50 mg 50 mg PO DAILY 08/06/22 12/03/23 12/03/23 08:00 History tablet,extended release 24 hr folic acid 1 mg tablet 1 mg PO DAILY 09/10/22 12/03/23 12/03/23 08:00 History ascorbic acid (vitamin C) 1,000 mg 500 mg PO DAILY 03/09/23 12/03/23 12/03/23 08:00 History tablet methenamine hippurate 1 gram tablet 1 g PO BID 03/09/23 12/03/23 12/03/23 08:00 History cholecalciferol (vitamin D3) 25 25 mcg PO DAILY 12/03/23 12/03/23 12/03/23 08:00 History mcg (1,000 unit) tablet potassium chloride 20 mEq 20 meq PO DAILY 12/03/23 12/03/23 12/03/23 08:00 History tablet,extended release Physical Exam 2 Vital Signs: Vital Signs: Last Vital Signs Temp 97.1 F 12/06/23 11:06 Pulse 74 12/06/23 11:06 Resp 18 12/06/23 11:06 BP 130/75 12/06/23 11:06 Pulse Ox 95 12/06/23 11:06 O2 Del Method Room Air 12/06/23 11:06 BMI result Body Mass Index 29.0 Const: General: cooperative HEENT: Head: Yes normal to inspection Face and sinus: Yes normal facial exam Mouth: Normal oral and palatal mucosa present Teeth and gingiva: d entition normal Eyes: General: appearance normal, both eyes and all related structures P upils: Equal, round and reactive pupils present Resp: Effort & Inspection: normal respiratory effort Cardio: Rate: regular rate Rhythm: regular rhythm GI: Palpation (GI): Soft to palpation and nontender : General: Yes no CVA tenderness Back/Spine/Pelvis: Back: no CVA tenderness Skin: General skin exam: no rashes or lesions noted Neuro: General: moves all extremities Cranial nerves: Yes Equal, round and reactive pupils present Extrem: General: Yes normal to inspection Psych: Appearance: grossly normal Results Labs 12/06/23 05:43 12/06/23 05:43 Microbiology Microbiology Results: Microbiology 12/03/23 13:52 Blood - Venous Blood Culture - Final Klebsiella pneumoniae 12/03/23 13:52 Blood - Venous Blood Culture - Final Klebsiella pneumoniae Assessment and Plan (1) Metabolic encephalopathy: Status: Resolved Plan Await blood cultures. Await urine cultreu. 14 d Cefepime likely. Stop Levaquin as may have give seizures.
== END 2023-12-06 18:39 | disposition skilled nursing facility (03) | DRG 689 ==
LOC: HO.ED 16:35 → HO.EDOVER 17:10 → HO.IMC 19:19
PROVIDERS: Physician Assistant; Physician Assistant Medical; Admitting Provider Student in an Organized Health Care Education/Training Program; Emergency Provider Emergency Medicine Emergency Medical Services; PCP Nurse Practitioner Acute Care; Visit Provider Student in an Organized Health Care Education/Training Program
DX: N39.0 Urinary tract infection, site not specified (principal); G93.41 Metabolic encephalopathy; R78.81 Bacteremia; N13.8 Other obstructive and reflux uropathy; I12.9 Hypertensive chronic kidney disease with stage 1 through stage 4 chronic kidney disease, or unspecified chronic kidney disease; R31.0 Gross hematuria; B96.1 Klebsiella pneumoniae [K. pneumoniae] as the cause of diseases classified elsewhere; N18.30 Chronic kidney disease, stage 3 unspecified; I25.10 Atherosclerotic heart disease of native coronary artery without angina pectoris; R33.8 Other retention of urine; I48.91 Unspecified atrial fibrillation; Z85.51 Personal history of malignant neoplasm of bladder; N40.1 Benign prostatic hyperplasia with lower urinary tract symptoms; Z20.822 Contact with and (suspected) exposure to COVID-19; Z87.440 Personal history of urinary (tract) infections; Z87.891 Personal history of nicotine dependence; Z79.01 Long term (current) use of anticoagulants; Z79.899 Other long term (current) drug therapy
CPT/HCPCS: 0241U; 36415; 71045; 80048; 80053; 81001; 81003; 83605; 83735; 85025; 85027; 87040; 87077; 87086; 87088; 87186; 87205; 93005; 99285; J0692; J2543; J7120

== ENCOUNTER → 2023-12-03 16:55 | Outpatient (BNV) | payer MEDICARE, SELFPAY | PROVIDERS: Admitting Provider Student in an Organized Health Care Education/Training Program; Emergency Provider Emergency Medicine Emergency Medical Services; PCP Nurse Practitioner Acute Care; Visit Provider Internal Medicine | DX: G93.41 Metabolic encephalopathy (principal) | CPT/HCPCS: 99222 ==

== ENCOUNTER → 2023-12-03 16:55 | Outpatient (BNV) | payer MEDICARE, MEDICAID, SELFPAY | PROVIDERS: Admitting Provider Student in an Organized Health Care Education/Training Program; Emergency Provider Emergency Medicine Emergency Medical Services; PCP Nurse Practitioner Acute Care; Visit Provider Internal Medicine | DX: G93.41 Metabolic encephalopathy (principal); R31.0 Gross hematuria; N39.0 Urinary tract infection, site not specified; R78.81 Bacteremia; B96.1 Klebsiella pneumoniae [K. pneumoniae] as the cause of diseases classified elsewhere | CPT/HCPCS: 99223; 99232; 99239; 99499 ==

== ENCOUNTER 2023-12-08 14:17 | Outpatient (REF) | payer MEDICARE, SELFPAY ==
--- NOTE | 2023-12-08 15:23 | HO.MIDLINE_ITS ---
Midline Insertion MIDLINE INSERTION Diagnosis: Urinary tract infection Indication: IV antibiotics Pertinent Labs: Reviewed Technique: Using sterile technique including cap and mask, glove and drape, the left arm was prepped and draped in the usual sterile fashion of full barrier technique with CHG. Using ultrasound guidance, the left brachial vein access was obtained in a single attempt by this RN. a 20 guage 8 cm Non-PASV Midline was positioned. The procedure was performed in S272. Ultrasound was used to document vein patency and for needle entry. A formal ultrasound picture was recorded. [employer] has released the line for use and it is currently dressed with a StatLock, Tegaderm, and CHG disc. Verification has been perform ed for blood return and line patency. Arm Circumference: 30.5 Equipment: Bard Powerglide ST Midline Catheter Catheter Type: 20 guage 8 cm Non-PASV Midline Lot #: [id number]
== END 2023-12-08 14:18 | disposition home or self-care (01) ==
LOC: HO.RADIR 14:17
PROVIDERS: PCP Nurse Practitioner Acute Care; Visit Provider Nurse Practitioner Acute Care
DX: Z13.89 Encounter for screening for other disorder (principal)

== ENCOUNTER 2023-12-31 10:20 | Emergency (ER) | payer MEDICARE, SELFPAY ==
--- NOTE | ~2023-12-31 | CT_ITS ---
EXAMINATION: CT angio head neck stroke (accession [id number]) CT head for stroke (accession [id number]) CLINICAL INFORMATION: Altered mental status. COMPARISON: CT head and cervical spine 10/16/2023. TECHNIQUE: Horseshoer images were obtained. A CT angiogram of the head and neck was performed in the arterial phase after the intravenous administration of 50 mL Omnipaque 350. Pre and delayed postcontrast images of the head were also obtained. 3D images were processed on an independent workstation under concurrent supervision. Arterial stenoses are measured in accordance with NASCET criteria or similar method if applicable. This CT examination was performed using dose optimization techniques as appropriate, including one or more of the following: Automated exposure control, iterative reconstruction, and adjustment of technique factors (mA and/or kVp) according to patient size (this includes techniques or standardized protocols for targeted exams where dose is matched to indication/reason for exam). Fleischner Society criteria for the followup of incidental pulmonary nodules was implemented if appropriate. Total exam dose-length product 2336 mGy-cm FINDINGS: Head: There is no acute intracranial hemorrhage or abnormal extra-axial collection. Postcontrast images reveal no abnormal intracranial mass or enhancement. There is no intracranial mass effect or midline shift. Lateral and third ventricles are normal. No hydrocephalus. 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 Grossly no evidence of acute territorial infarct. The calvarium and skull base are intact. Mastoid air cells and middle ear cavities are well aerated. Mild to moderate paranasal sinus disease primarily affecting the ethmoid air cells and the alveolar recesses of the maxillary sinuses. Globes and orbits are grossly symmetric. CT angiogram neck: Scattered atheromatous calcification involves the aortic arch apex. Origins of the major aortic branches are patent. Heavily calcified plaque causes moderate focal narrowing at the origin of the right subclavian artery. There are long segments of vascular calcification involving both common carotid arteries and both carotid bifurcations without associated stenosis. No stenosis of the extracranial internal carotid arteries. Atheromatous calcification causes moderate focal narrowing at the origin of the right vertebral artery. Cervical segments of the vertebral arteries are otherwise patent. CT angiogram head: Atheromatous calcification involves the cavernous segments of both internal carotid arteries without associated stenosis. Mild focal narrowing of the right intradural vertebral artery just beyond its dural insertion. The intradural vertebral artery segments and basilar artery are otherwise patent. Anterior, middle, and posterior cerebral artery complexes are normal. No intracranial large vessel occlusion. Other: Soft tissues of the neck including the thyroid gland are normal. No pathologically enlarged cervical lymph nodes. Visualized lung apices are clear. No acute osseous finding. Specifically no worrisome lytic or blastic osseous lesion. There is however advanced multilevel degenerative spondylosis of the cervical spine with severe canal stenosis at C4-C5 and C5-C6. 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 Grossly no evidence of acute territorial infarct or hemorrhage. No abnormal intracranial mass or enhancement. There is moderate focal narrowing at the origin of the right subclavian artery and at the origin of the right vertebral artery. Otherwise no stenosis of the cervical carotid or vertebral arteries. No intracranial large vessel occlusion. There is advanced multilevel degenerative spondylosis of the cervical spine with severe canal stenosis at C4-C5 and C5-C6. If there are clinical symptoms of compressive myelopathy then a dedicated cervical spine MRI can be obtained for better anatomic characterization of the cord and canal. This critical result was discussed with Martín WESTBROOK at 11:18 AM on 12/31/2023 and it was ascertained that the content and urgency of the report was understood at the time of direct communication. Electronically signed by: Ramón Browne MD 12/31/2023 11:19 AM EDT
--- NOTE | ~2023-12-31 | XR_ITS ---
EXAMINATION: XR CHEST CLINICAL INFORMATION: Cough COMPARISON: Chest x-ray December 03, 2023 TECHNIQUE: Frontal view of the chest was obtained. FINDINGS: Stable cardiac silhouette. Prominent asymmetric elevation of the left hemidiaphragm is again noted. No gross lobar consolidation. No pleural effusion or pneumothorax. Degenerative changes of both shoulders. XR/XR chest 1V IMPRESSION: Stable examination demonstrating no acute pulmonary pathology. Electronically signed by: Roland Torres MD 12/31/2023 03:53 PM EDT
--- NOTE | ~2023-12-31 | CT_ITS ---
EXAMINATION: CT angio head neck stroke (accession [id number]) CT head for stroke (accession [id number]) CLINICAL INFORMATION: Altered mental status. COMPARISON: CT head and cervical spine 10/16/2023. TECHNIQUE: Renal Dialysis Rn images were obtained. A CT angiogram of the head and neck was performed in the arterial phase after the intravenous administration of 50 mL Omnipaque 350. Pre and delayed postcontrast images of the head were also obtained. 3D images were processed on an independent workstation under concurrent supervision. Arterial stenoses are measured in accordance with NASCET criteria or similar method if applicable. This CT examination was performed using dose optimization techniques as appropriate, including one or more of the following: Automated exposure control, iterative reconstruction, and adjustment of technique factors (mA and/or kVp) according to patient size (this includes techniques or standardized protocols for targeted exams where dose is matched to indication/reason for exam). Fleischner Society criteria for the followup of incidental pulmonary nodules was implemented if appropriate. Total exam dose-length product 2336 mGy-cm FINDINGS: Head: There is no acute intracranial hemorrhage or abnormal extra-axial collection. Postcontrast images reveal no abnormal intracranial mass or enhancement. There is no intracranial mass effect or midline shift. Lateral and third ventricles are normal. No hydrocephalus. 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 Grossly no evidence of acute territorial infarct. The calvarium and skull base are intact. Mastoid air cells and middle ear cavities are well aerated. Mild to moderate paranasal sinus disease primarily affecting the ethmoid air cells and the alveolar recesses of the maxillary sinuses. Globes and orbits are grossly symmetric. CT angiogram neck: Scattered atheromatous calcification involves the aortic arch apex. Origins of the major aortic branches are patent. Heavily calcified plaque causes moderate focal narrowing at the origin of the right subclavian artery. There are long segments of vascular calcification involving both common carotid arteries and both carotid bifurcations without associated stenosis. No stenosis of the extracranial internal carotid arteries. Atheromatous calcification causes moderate focal narrowing at the origin of the right vertebral artery. Cervical segments of the vertebral arteries are otherwise patent. CT angiogram head: Atheromatous calcification involves the cavernous segments of both internal carotid arteries without associated stenosis. Mild focal narrowing of the right intradural vertebral artery just beyond its dural insertion. The intradural vertebral artery segments and basilar artery are otherwise patent. Anterior, middle, and posterior cerebral artery complexes are normal. No intracranial large vessel occlusion. Other: Soft tissues of the neck including the thyroid gland are normal. No pathologically enlarged cervical lymph nodes. Visualized lung apices are clear. No acute osseous finding. Specifically no worrisome lytic or blastic osseous lesion. There is however advanced multilevel degenerative spondylosis of the cervical spine with severe canal stenosis at C4-C5 and C5-C6. 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 Grossly no evidence of acute territorial infarct or hemorrhage. No abnormal intracranial mass or enhancement. There is moderate focal narrowing at the origin of the right subclavian artery and at the origin of the right vertebral artery. Otherwise no stenosis of the cervical carotid or vertebral arteries. No intracranial large vessel occlusion. There is advanced multilevel degenerative spondylosis of the cervical spine with severe canal stenosis at C4-C5 and C5-C6. If there are clinical symptoms of compressive myelopathy then a dedicated cervical spine MRI can be obtained for better anatomic characterization of the cord and canal. This critical result was discussed with Martín WESTBROOK at 11:18 AM on 12/31/2023 and it was ascertained that the content and urgency of the report was understood at the time of direct communication. Electronically signed by: Ramón Browne MD 12/31/2023 11:19 AM EDT
--- NOTE | 2023-12-31 10:27 | ED.GENADULT ---
HPI - General Adult General Chief complaint: Stroke Stated complaint: ?STROKE,LKWT LAST NOC,CONF,SLURR,R DRIFT,HSH Time Seen by Provider: 12/31/23 10:24 Source: patient and EMS Mode of arrival: EMS Limitations: other (Poor historian) History of Present Illness ED Provider: Mamadou MA HPI narrative: This is an 88-year-old male hx CKD, GERD, HLD, CAD, Afib on elqiuis, COPD, BPH w/ outflow obstruction, OA, anemia, HTN presenting to the emergency department with altered mental status from [facility] [place]. According to staff members they went and rounded on patient this morning and they realize that he was confused, and leaning to his right side. On arrival patient is alert and oriented x3, however when I asked him why he is here he states I am coming out of my high', when I asked him if anything hurts he says no. No reported trauma. EMS reports that staff at [facility] reported he had been hallucinating earlier today. Last known well time is unclear however likely sometime last night. NIH stroke scale 0 Related Data Home Medications ?Medication ?Instructions ?Recorded ?Confirmed atorvastatin 80 mg tablet 40 mg PO BEDTIME 03/25/20 12/03/23 ezetimibe 10 mg tablet 10 mg PO DAILY 03/25/20 12/03/23 latanoprost 0.005 % eye drops 1 drp ophthalmic (eye) DAILY 07/03/20 12/03/23 vitamins A,C,X-sgxh-ddouaj 2,148 1 tab PO BID 07/03/20 12/03/23 mcg-113 mg-45 mg-17.4 mg tablet (PreserVision AREDS) acetaminophen 325 mg tablet 650 mg PO Q6H PRN pain/ fever 08/06/22 12/03/23 albuterol sulfate 90 mcg/actuation 2 puff inhalation Q4H PRN Wheezing 08/06/22 12/03/23 aerosol inhaler (ProAir HFA) amlodipine 10 mg tablet 10 mg PO DAILY 08/06/22 12/03/23 cyanocobalamin (vitamin B-12) 2,000 mcg PO DAILY 08/06/22 12/03/23 1,000 mcg tablet escitalopram oxalate 5 mg tablet 5 mg PO DAILY 08/06/22 12/03/23 hydrochlorothiazide 25 mg tablet 25 mg PO DAILY 08/06/22 12/03/23 magnesium oxide 400 mg PO DAILY 08/06/22 12/03/23 metoprolol succinate 50 mg 50 mg PO DAILY 08/06/22 12/03/23 tablet,extended release 24 hr folic acid 1 mg tablet 1 mg PO DAILY 09/10/22 12/03/23 ascorbic acid (vitamin C) 1,000 mg 500 mg PO DAILY 03/09/23 12/03/23 tablet methenamine hippurate 1 gram tablet 1 g PO BID 03/09/23 12/03/23 cholecalciferol (vitamin D3) 25 25 mcg PO DAILY 12/03/23 12/03/23 mcg (1,000 unit) tablet potassium chloride 20 mEq 20 meq PO DAILY 12/03/23 12/03/23 tablet,extended release Previous Rx's ?Medication ?Instructions ?Recorded apixaban 2.5 mg tablet (Eliquis) 2.5 mg PO BID #60 tabs 01/17/23 docusate sodium 100 mg capsule 100 mg PO BID #60 caps 01/17/23 ceftriaxone 1 gram intravenous 1 g IV Q24H 11 days 12/06/23 solution albuterol sulfate 90 mcg/actuation 2 inh inhalation Q4-6H PRN 12/31/23 breath activated powder inhaler shortness of breath or wheezing #1 ea doxycycline hyclate 100 mg capsule 100 mg PO BID 10 days #20 caps 12/31/23 Allergies Allergy/AdvReac Type Severity Reaction Status Date / Time lisinopril Allergy Unknown Verified 12/31/23 10:56 Review of Systems Review of Systems: Yes all other systems are reviewed and are negative [facility] Past Medical History Attestation statement: The following information was validated with the patient. Source: old records reviewed and nursing notes reviewed Medical History Mucus plugging of bronchi Respiratory failure with hypoxia and hypercapnia Atelectasis of left lung BPH (benign prostatic hyperplasia) Frequent falls On beta priscilla at home Overweight (BMI 25.0-29.9) Depression Urothelial carcinoma of bladder Vitamin B12 deficiency Vitamin D deficiency GERD without esophagitis Anemia Primary osteoarthritis, right shoulder Osteoarthritis of both knees Chronic kidney disease, stage III (moderate) Impaired fasting glucose Elevated liver enzymes Subdural hematoma Benign essential hypertension Pure hypercholesterolemia Coronary artery disease Surgical History History of tonsillectomy History of transurethral resection of bladder tumor (TURBT) History of hip surgery History of transurethral resection of prostate History of shoulder surgery Family History Family History Father CVD (cardiovascular disease) Mother Hypertension Social History Social History Household Members: Other Housing: Detention Housing Other:: [employer] [facility] Are you a primary cardiac care nurse to a significant other at home: No Do you presently have visiting nurse or other home services: No Alcohol intake: former Patient Tobacco Use Status: Former Tobacco user Smoked in Last 30 Days: No Use of substances other than those prescribed or required for medical reasons: No Advance Directives: Yes Advance Directives on File: Yes Advance Directives Date on File: 08/18/22 Do you have a plan to hurt others: No Plan service: Yes Physical Exam ED Vital Signs: Vital Signs - 24 hr 12/31/23 10:41 12/31/23 14:51 Temperature 98.6 F 98.7 F Pulse Rate 86 66 Respiratory Rate 20 16 Blood Pressure 143/61 H 120/58 L Pulse Oximetry 95 94 Oxygen Delivery Method Room Air BMI result Body Mass Index 27.8 vss Appearance: Alert.? Oriented X2 ( person, place, not time or situation) .? No acute distress.? Head: Normocephalic, atraumatic, no step-offs or deformities Eyes: Pupils equal, round and reactive to light.? ENT: Pharynx normal.? Neck: Normal inspection.? Neck supple.? CVS: Normal heart rate and rhythm.? Pulses normal.? Respiratory: No respiratory distress.? Breath sounds mild crackles however clears with cough.? Abdomen: Soft and nontender.? Skin: Skin warm and dry.? Normal skin color.? Normal skin turgor.? Extremities: No lower extremity edema.? No calf ttp. 5/5 strength to bilateral upper and lower extremities + tilting to right side. Neuro: Oriented ( person, place, not time or situation) .? .? No motor deficit.? No sensory deficit. Course Reevaluation(s) Reevaluation #1: CBC unremarkable baseline normocytic anemia. Nonspecific thrombocytopenia noted. Chemistry with no acute findings needing intervention. Mild elevation in BUN and creatinine at baseline. Patient's BNP mildly elevated however previous BNP is much higher no signs of acute fluid overload on exam. Coags unremarkable. UA without infection. 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 No gross evidence of territorial infarction or hemorrhage. No mass or enhancement. Moderate focal narrowing at the origin of the right subclavian artery at the origin of the right vertebral artery. No large vessel occlusion. Degenerative changes are noted in the cervical spine however no fractures or dislocation. 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 I did call patient's /healthcare proxy to discuss patient's workup she is okay with patient being discharged back to the [facility] she reassures me that fluctuating mentation and hallucinations are normal for this patient. Again he is oriented to person and place not time or situation this seems to be his baseline. At this time patient to be discharged back to the [facility]. Time: 14:08 Reevaluation #2: Patient started coughing, cough sounds wet, obtained chest x-ray results pending. Time: 15:31 Reevaluation #3: Cough still sounding productive, not coughing up phlegm however, chest x-ray stable examination no acute pulmonary pathology. Will treat with doxycycline for this. Plan is discharge back to [facility] Medications Administered Discontinued Medications Generic Name Dose Route Start Last Admin Trade Name Cabrera PRN Reason Stop Dose Admin Iohexol 70 ml 12/31/23 10:46 12/31/23 10:47 Iohexol 350 Mg/Ml 100 Ml Infus..Btl IV 12/31/23 10:47 70 ml ONCE ONE Administration Medical Decision Making Medical Decision Making [facility] Narrative: 1028 88 yo m presents w/ leaning to the right side ( unclear for how long), AMS ( unclear amount of time) coming from [facility] PE leaning to right side, A&O X 2, normal strength to UE and LE. Mild crackles however clears with cough History and physical exam concerning for possible stroke however patient is out of the window. Unlikely LV0. Will rule out UTI and metabolic derangements. Crackles likely secondary to chronic lung disease, less likely pneumonia, PE, acute respiratory distress. Viral illness is possible Plan- labs, imaging, urine Differential Diagnosis Differential Diagnoses: The differential diagnosis associated with the presentation includes (History and physical exam concerning for possible stroke however patient is out of the window. Unlikely LV0. Will rule out UTI and metabolic derangements.Crackles likely secondary to chronic lung disease, less likely pneumonia, PE, acute respiratory distress. Viral illness is possible) Admission/Observation Consideration of admission/observation: Escalation of care including admission/observation considered Lab Data MDM Lab Attestation statement: I reviewed the patient's lab results. 12/31/23 10:32 12/31/23 10:32 Labs: Lab Results 12/31/23 12/31/23 Range/Units 10:32 11:27 WBC 9.8 (4.8-10.8) X10*3/uL RBC 3.35 L (4.60-5.80) X10*6/uL Hgb 10.9 L (14.0-18.0) g/dl Hct 31.2 L (42.0-52.0) % MCV 93.1 (80.0-98.0) fL MCH 32.5 (27.0-33.0) pg MCHC 34.9 (31.0-36.0) g/dl RDW 13.6 (11.0-16.0) % Plt Count 92 L D (160-400) X10*3/uL MPV 11.6 (9.4-12.4) fL Immature Gran % (Auto) 0.5 H (0.0-0.4) % Neut % (Auto) 71.7 (45-73) % Lymph % (Auto) 13.8 L (20-40) % [place] % (Auto) 10.6 (2-11) % Eos % (Auto) 2.8 (0-4) % Baso % (Auto) 0.6 (0-2) % Lymph # (Auto) 1.4 (1.2-4.9) X10*3/uL [place] # (Auto) 1.0 (0.1-1.2) X10*3/uL Eos # (Auto) 0.3 (0.0-0.4) X10*3/uL Baso # (Auto) 0.1 (0.0-0.2) X10*3/uL Abs Immat Gran (auto) 0.05 H (0.00-0.03) X10*3/uL Absolute Neuts (auto) 7.0 (2.0-8.3) x10*3/uL Absolute Nucleated RBC 0.000 (0.0-0.012) X10*3/uL Nucleated RBC % (auto) 0.0 (0.0-0.2) /100WBC PT 15.0 H (10.9-12.4) SEC INR 1.3 H (0.9-1.1) Sodium 140 (135-145) mmol/L Potassium 3.9 (3.3-5.1) mmol/L Chloride 107 (96-108) mmol/L Carbon Dioxide 23 (22-29) mmol/L Anion Gap 14 (12-20) BUN 18 H (9-16) mg/dL Creatinine 1.35 (0.5-1.4) mg/dL Estim Creat Clear Calc TNP Estimated GFR 50 Random Glucose 120 H (60-115) mg/dL Calcium 8.6 (8.4-10.2) mg/dL Magnesium 1.7 (1.6-2.6) mg/dL Total Bilirubin 0.7 (0.0-1.0) mg/dL AST 18 (5-37) U/L ALT 17 (0-40) U/L Alkaline Phosphatase 44 (39-117) U/L Troponin I High Sens 13.3 D (<3.5-35.0) ng/L B-Natriuretic Peptide 246 H (<100) pg/mL Total Protein 6.4 L (6.5-8.0) g/dL Albumin 3.5 (3.5-5.0) g/dL Urine Color Yellow Urine Appearance Clear Urine pH 5.5 (5.0-9.0) Ur Specific [place] >= 1.030 H (1.005-1.025) Urine Protein Negative (Neg-Trace) mg/dL Urine Glucose (UA) Negative (Negative) mg/dL Urine Ketones Negative (Negative) mg/dL Urine Blood Negative (Negative) Urine Nitrite Negative (Negative) Ur Leukocyte Esterase Moderate (2+) H (Negative) Urine RBC 0-2 (0-2) /HPF Urine WBC 21-50 H (0-5) /HPF Ur Squamous Epith Cells 0-2 (0-2) /HPF Urine Bacteria None Seen (None Seen) Hyaline Casts 0-2 (0-2) /LPF Independent Interpretation I performed an independent interpretation of an: CT Scan (CT/CT angio head neck stroke IMPRESSION: There is a 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 Grossly no evidence of acute territorial infarct or hemorrhage. No abnorma) Radiology Impression Discussion of test interpretation with radiology: I have reviewed the radiologist's reading. Independent Historian Clinical information obtained from an independent historian. History obtained from or confirmed by: Spouse ( ) and EMS External Record Review External record reviewed: Inpatient record, Office record and Outpatient record Chronic Conditions Patient?s care impacted by: Hypertension and Other (CKD, GERD, HLD, CAD, Afib on elqiuis, COPD, BPH w/ outflow obstruction, OA, anemia, HTN) Discharge Plan Discharge Clinical Impression: Physical deconditioning, Hallucinations Patient Disposition: Xfer LT Transfer Details: BACK TO [facility] Instructions: Hallucinations (ED) Additional Instructions: Take your medications as prescribed. If you were prescribed antibiotics today, it is important that you take your medication to their entirety, do not skip any doses, do not finish them early. Follow-up with your primary care provider this week. Return to the emergency department with new or worsening symptoms. 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 Grossly no evidence of acute territorial infarct or hemorrhage. No abnormal intracranial mass or enhancement. There is moderate focal narrowing at the origin of the right subclavian artery and at the origin of the right vertebral artery. Otherwise no stenosis of the cervical carotid or vertebral arteries. No intracranial large vessel occlusion. There is advanced multilevel degenerative spondylosis of the cervical spine with severe canal stenosis at C4-C5 and C5-C6. If there are clinical symptoms of compressive myelopathy then a dedicated cervical spine MRI can be obtained for better anatomic characterization of the cord and canal. This critical result was discussed with Martín WESTBROOK at 11:18 AM on 12/31/2023 and it was ascertained that the content and urgency of the report was understood at the time of direct communication. Prescriptions: New doxycycline hyclate 100 mg capsule 100 mg PO BID 10 Days Qty: 20 0RF albuterol sulfate 90 mcg/actuation aerosol powdr breath activated 2 inh inhalation Q4-6H PRN (Reason: shortness of breath or wheezing) Qty: 1 0RF No Action PreserVision AREDS 7,160 unit- 113 mg-100 unit Tablet 1 tab PO BID latanoprost 0.005 % Drops 1 drp ophthalmic (eye) DAILY Rx Instructions: BOTH EYES acetaminophen 325 mg Tablet 650 mg PO Q6H PRN (Reason: pain/ fever) metoprolol succinate 50 mg tablet extended release 24 hr 50 mg PO DAILY hydrochlorothiazide 25 mg Tablet 25 mg PO DAILY escitalopram oxalate 5 mg tablet 5 mg PO DAILY amlodipine 10 mg Tablet 10 mg PO DAILY cyanocobalamin (vitamin B-12) 1,000 mcg Tablet 2,000 mcg PO DAILY magnesium oxide 400 mg magnesium Tablet 400 mg PO DAILY albuterol sulfate [ProAir HFA] 90 mcg/actuation Hfa Aerosol Inhaler 2 puff INHALATION Q4H PRN (Reason: Wheezing) docusate sodium 100 mg Capsule 100 mg PO BID Qty: 60 0RF Eliquis 2.5 mg Tablet 2.5 mg PO BID Qty: 60 0RF cholecalciferol (vitamin D3) 25 mcg (1,000 unit) Tablet 25 mcg PO DAILY potassium chloride 20 mEq Tablet Extended Release 20 meq PO DAILY ceftriaxone 1 gram recon soln 1 g IV Q24H 11 Days atorvastatin 80 mg tablet 40 mg PO BEDTIME ezetimibe 10 mg tablet 10 mg PO DAILY ascorbic acid (vitamin C) 1,000 mg tablet 500 mg PO DAILY methenamine hippurate 1 gram tablet 1 g PO BID folic acid 1 mg tablet 1 mg PO DAILY Referrals: Emily Lin CNP [Primary Care Provider] - Ramón Ortega MD [Physician] - Print Language: Chilean
[2023-12-31 10:37] LABS: MANUAL DIFF FLAG NO
[2023-12-31 10:41] VITALS: BP 120/70; BP 143/61; PULSE 68; PULSE 86; RESP 20; TEMP 37; O2SAT 95; O2SAT 97; BMI 27.8
[2023-12-31] MEDS: iohexoL 350 MG/ML 100 ML INFUS..BTL 70 ML IV (10:47)
[2023-12-31 10:55] LABS: Alanine Aminotransferase 17 U/L (0-40); Albumin Level 3.5 g/dL (3.5-5.0); Alkaline Phosphatase 44 U/L (39-117); Anion Gap 14 (12-20); Aspartate Amino Transferase 18 U/L (5-37); Basophils Absolute Auto 0.1 X10*3/uL (0.0-0.2); Basophils Percent Auto 0.6 % (0-2); Bilirubin Total 0.7 mg/dL (0.0-1.0); Blood Urea Nitrogen 18 mg/dL (9-16); Calcium 8.6 mg/dL (8.4-10.2); Carbon Dioxide 23 mmol/L (22-29); Chloride 107 mmol/L (96-108); Eosinophils Absolute Auto 0.3 X10*3/uL (0.0-0.4); Eosinophils Percent Auto 2.8 % (0-4); Estimated Glomerular Filt Rate 50; Glucose Random 120 mg/dL (60-115); Hematocrit 31.2 % (42.0-52.0); Hemoglobin 10.9 g/dl (14.0-18.0); Imm Gran Abs Auto 0.05 X10*3/uL (0.00-0.03); Imm Gran Pct Auto 0.5 % (0.0-0.4); Lymphocytes Absolute Auto 1.4 X10*3/uL (1.2-4.9); Lymphocytes Percent Auto 13.8 % (20-40); Magnesium 1.7 mg/dL (1.6-2.6); Mean Corpuscular HGB Conc 34.9 g/dl (31.0-36.0); Mean Corpuscular Hemoglobin 32.5 pg (27.0-33.0); Mean Corpuscular Volume 93.1 fL (80.0-98.0); Mean Platelet Volume 11.6 fL (9.4-12.4); Monocytes Percent Auto 10.6 % (2-11); Neutrophils Percent Auto 71.7 % (45-73); Potassium 3.9 mmol/L (3.3-5.1); Red Blood Count 3.35 X10*6/uL (4.60-5.80); Red Cell Distribution Width 13.6 % (11.0-16.0); Sodium 140 mmol/L (135-145); Total Protein 6.4 g/dL (6.5-8.0); White Blood Count 9.8 X10*3/uL (4.8-10.8)
[2023-12-31 10:57] LABS: INTERNATIONAL NORM RATIO 1.3 (0.9-1.1)
--- NOTE | 2023-12-31 10:57 | ECG_ITS ---
Test Reason : ? STROKE Blood Pressure : / mmHG Vent. Rate : 064 BPM Atrial Rate : 064 BPM P-R Int : 184 ms QRS Dur : 080 ms QT Int : 392 ms P-R-T Axes : 000 000 017 degrees QTc Int : 404 ms Normal sinus rhythm Normal ECG When compared with ECG of 03-DEC-2023 15:20, Sinus rhythm has replaced Junctional rhythm Referred By: Jose Carlos Farley Electronically Signed By:JOAQUIN DEL RIO
[2023-12-31 11:00] LABS: B Type Natriuretic Peptide 246 pg/mL (<100)
[2023-12-31 11:04] LABS: Platelet Count 92 X10*3/uL (160-400)
--- NOTE | 2023-12-31 11:32 | PC.NURSE ---
assumed care of pt at 1100, pt alert and oriented to person/place, equal strength, follows commands, some generalized weakness/deconditioning noted. pt changed into hospital [facility], principal product manager applied. pt noted to have suprapubic cath, w clean insertion site, urine sample obtained. resting quietly pending CT scan results.
[2023-12-31 11:49] LABS: Appearance Urine Clear; Color Urine Yellow; Glucose Urine UA Negative (Negative); Leukocyte Esterase Urine Moderate (2+) (Negative); Nitrite Urine Negative (Negative); PH 5.5 (5.0-9.0); Specific Gravity - Urine >= 1.030 (1.005-1.025); UMIC TRIGGER UACC YES; Urine Blood Negative (Negative); Urine Ketones Negative (Negative); Urine Protein Negative (Neg-Trace)
[2023-12-31 11:55] LABS: Bacteria Urine None Seen (None Seen); Hyaline Casts Urine 0-2 /LPF (0-2); RBC Urine 0-2 /HPF (0-2); Squamous Epithelial Cell Urine 0-2 /HPF (0-2); UACC Culture Trigger YES; WBC Urine 21-50 /HPF (0-5)
[2023-12-31 14:38] LABS: Troponin-I High Sensitivity 13.3 ng/L (<3.5-35.0)
[2023-12-31 14:51] VITALS: BP 120/58; PULSE 66; RESP 16; TEMP 37.1; O2SAT 94
[2023-12-31 16:06] VITALS: BP 104/47; PULSE 60; RESP 18; TEMP 36.6; O2SAT 96
[2023-12-31 16:13] LABS: Influenza A PCR NEGATIVE (Negative); Influenza B PCR NEGATIVE (Negative); Resp Syncy Virus RNA Qual PCR NEGATIVE (Negative); SARS COV2 PCR INHOUSE NEGATIVE (Negative)
[2023-12-31 16:43] VITALS: BP 104/47; PULSE 60; RESP 18; TEMP 36.6; O2SAT 96
[2024-01-02 09:11] LABS: Glucose, Whole Blood 125 mg/dL (60-115)
== END 2023-12-31 16:45 ==
PROVIDERS: Physician Assistant; Emergency Provider Internal Medicine; PCP Nurse Practitioner Acute Care
DX: R41.82 Altered mental status, unspecified (principal); R44.2 Other hallucinations; R53.81 Other malaise; T83.511A Infection and inflammatory reaction due to indwelling urethral catheter, initial encounter; N39.0 Urinary tract infection, site not specified; B96.20 Unspecified Escherichia coli [E. coli] as the cause of diseases classified elsewhere; B96.1 Klebsiella pneumoniae [K. pneumoniae] as the cause of diseases classified elsewhere; Y73.8 Miscellaneous gastroenterology and urology devices associated with adverse incidents, not elsewhere classified; Y92.129 Unspecified place in nursing home as the place of occurrence of the external cause; R05.9 Cough, unspecified; Z03.818 Encounter for observation for suspected exposure to other biological agents ruled out; I12.9 Hypertensive chronic kidney disease with stage 1 through stage 4 chronic kidney disease, or unspecified chronic kidney disease; N18.30 Chronic kidney disease, stage 3 unspecified; E78.00 Pure hypercholesterolemia, unspecified; D64.9 Anemia, unspecified; R78.81 Bacteremia; Z87.891 Personal history of nicotine dependence; Z79.02 Long term (current) use of antithrombotics/antiplatelets; Z79.899 Other long term (current) drug therapy; Z79.01 Long term (current) use of anticoagulants
CPT/HCPCS: 0241U; 36415; 70450; 70496; 70498; 71045; 80053; 81001; 82947; 83735; 83880; 84484; 85025; 85610; 87086; 87088; 87186; 93005; 99285; Q9967

== ENCOUNTER 2024-01-14 08:29 | Outpatient (REF) | payer MEDICARE, SELFPAY ==
[2024-01-14 08:40] LABS: MANUAL DIFF FLAG NO
[2024-01-14 08:45] LABS: Basophils Absolute Auto 0.1 X10*3/uL (0.0-0.2); Basophils Percent Auto 0.9 % (0-2); Eosinophils Absolute Auto 0.3 X10*3/uL (0.0-0.4); Eosinophils Percent Auto 2.9 % (0-4); Hematocrit 33.1 % (42.0-52.0); Hemoglobin 11.5 g/dl (14.0-18.0); Imm Gran Abs Auto 0.08 X10*3/uL (0.00-0.03); Imm Gran Pct Auto 0.9 % (0.0-0.4); Lymphocytes Absolute Auto 1.4 X10*3/uL (1.2-4.9); Lymphocytes Percent Auto 15.3 % (20-40); Mean Corpuscular HGB Conc 34.7 g/dl (31.0-36.0); Mean Corpuscular Hemoglobin 32.2 pg (27.0-33.0); Mean Corpuscular Volume 92.7 fL (80.0-98.0); Mean Platelet Volume 10.7 fL (9.4-12.4); Monocytes Percent Auto 10.2 % (2-11); Neutrophils Absolute Auto 6.5 x10*3/uL (2.0-8.3); Neutrophils Percent Auto 69.8 % (45-73); Platelet Count 128 X10*3/uL (160-400); Red Blood Count 3.57 X10*6/uL (4.60-5.80); Red Cell Distribution Width 13.2 % (11.0-16.0); White Blood Count 9.3 X10*3/uL (4.8-10.8)
[2024-01-14 09:09] LABS: Alanine Aminotransferase 10 U/L (0-40); Albumin Level 3.3 g/dL (3.5-5.0); Alkaline Phosphatase 38 U/L (39-117); Anion Gap 14 (12-20); Aspartate Amino Transferase 16 U/L (5-37); Bilirubin Total 0.5 mg/dL (0.0-1.0); Blood Urea Nitrogen 16 mg/dL (9-16); Calcium 8.3 mg/dL (8.4-10.2); Carbon Dioxide 24 mmol/L (22-29); Chloride 106 mmol/L (96-108); Estimated Glomerular Filt Rate > 60; Glucose Random 97 mg/dL (60-115); Magnesium 1.7 mg/dL (1.6-2.6); Potassium 3.5 mmol/L (3.3-5.1); Sodium 140 mmol/L (135-145); Total Protein 5.9 g/dL (6.5-8.0)
[2024-01-14 09:23] LABS: Free T4 (Free Thyroxine) 1.08 ng/dL (0.71-1.85); T4 Thyroxine 7.7 ug/dL (4.5-12.0); Thyroid Stimulating Hormone 1.16 uIU/mL (0.32-4.0)
[2024-01-16 00:53] LABS: T3 Uptake 33 % (22-35)
== END 2024-01-14 08:30 | disposition home or self-care (01) ==
LOC: HO.HSH3E 08:29
PROVIDERS: Visit Provider Nurse Practitioner Acute Care
DX: F03.90 Unspecified dementia, unspecified severity, without behavioral disturbance, psychotic disturbance, mood disturbance, and anxiety (principal)
CPT/HCPCS: 36415; 80053; 83735; 83970; 84436; 84439; 84443; 84479; 85025

== ENCOUNTER 2024-01-27 05:54 | Outpatient (REF) | payer MEDICARE, SELFPAY ==
[2024-01-27 05:57] LABS: MANUAL DIFF FLAG NO
[2024-01-27 06:11] LABS: Basophils Absolute Auto 0.1 X10*3/uL (0.0-0.2); Basophils Percent Auto 0.9 % (0-2); Eosinophils Absolute Auto 0.3 X10*3/uL (0.0-0.4); Eosinophils Percent Auto 4.4 % (0-4); Hematocrit 31.7 % (42.0-52.0); Hemoglobin 11.2 g/dl (14.0-18.0); Imm Gran Abs Auto 0.04 X10*3/uL (0.00-0.03); Imm Gran Pct Auto 0.5 % (0.0-0.4); Lymphocytes Absolute Auto 1.6 X10*3/uL (1.2-4.9); Lymphocytes Percent Auto 21.6 % (20-40); Mean Corpuscular HGB Conc 35.3 g/dl (31.0-36.0); Mean Corpuscular Hemoglobin 32.5 pg (27.0-33.0); Mean Corpuscular Volume 91.9 fL (80.0-98.0); Mean Platelet Volume 11.6 fL (9.4-12.4); Monocytes Absolute Auto 0.9 X10*3/uL (0.1-1.2); Monocytes Percent Auto 12.6 % (2-11); Neutrophils Absolute Auto 4.5 x10*3/uL (2.0-8.3); Platelet Count 91 X10*3/uL (160-400); Red Blood Count 3.45 X10*6/uL (4.60-5.80); Red Cell Distribution Width 13.2 % (11.0-16.0); White Blood Count 7.4 X10*3/uL (4.8-10.8)
[2024-01-27 06:52] LABS: Iron 59 mcg/dL (45-160); Percent Iron Saturation 28 % (15-50); Total Iron Binding Capacity 211 mcg/dL (228-428); Unsaturated Iron Binding 152 ug/dL
[2024-01-27 10:39] LABS: Folate 16.5 ng/mL (> or = 4.0)
== END 2024-01-27 05:55 | disposition home or self-care (01) ==
LOC: HO.HSH3E 05:54
PROVIDERS: Visit Provider Nurse Practitioner Acute Care
DX: D64.9 Anemia, unspecified (principal)
CPT/HCPCS: 36415; 82746; 83540; 85025

== ENCOUNTER 2024-02-01 11:38 | Outpatient (AMB) | payer MEDICARE, SELFPAY ==
--- NOTE | 2024-01-31 17:14 | HO.VETSHOME ---
Intake Intake Visit Reasons: US follow up Allergies lisinopril Allergy (Verified 12/31/23 10:56) Unknown HPI HPI Comments History of Present Illness Details Maik is an 88 year old male h/o bladder cancer/bph with Supra pubiic tube-placed on 08/09/22, last cysto- 08/19/23 reported within normal limits. Scheduled for Six-month follow-up renal ultrasound. US Retroperitoneal was done on site at [facility]. 01/13/24-- Report reviewed kidneys and bladder within normal limits, left renal cyst. The patient was seen in ED on 12/03/23 and hospitalized, treated for UTI, and had recurrent UTI 12/31/23 (culture report in result section). SP tube last changed by nursing staff on 01/13/24. Review of labs: PSA 10/2021 --1.9 Plan cont methanamine bid, Vit C 500 mg daily. Consider repeat cystoscopy in 07/2024. [facility] Medical History Mucus plugging of bronchi Respiratory failure with hypoxia and hypercapnia Atelectasis of left lung BPH (benign prostatic hyperplasia) Frequent falls On beta priscilla at home Overweight (BMI 25.0-29.9) Depression Urothelial carcinoma of bladder Vitamin B12 deficiency Vitamin D deficiency GERD without esophagitis Anemia Primary osteoarthritis, right shoulder Osteoarthritis of both knees Chronic kidney disease, stage III (moderate) Impaired fasting glucose Elevated liver enzymes Subdural hematoma Benign essential hypertension Pure hypercholesterolemia Coronary artery disease Surgical History History of tonsillectomy History of transurethral resection of bladder tumor (TURBT) History of hip surgery History of transurethral resection of prostate History of shoulder surgery Family History Father CVD (cardiovascular disease) Mother Hypertension Social History Household Members: Other Housing: Shelter Housing Other:: [facility] Are you a primary acute care nursing assistant to a significant other at home: No Do you presently have visiting nurse or other home services: No Alcohol intake: former Patient Tobacco Use Status: Former Tobacco user Advance Directives Date on File: 08/18/22 service: Yes Review of Systems Const All systems reviewed & are unremarkable except as noted in HPI and below Reports no additional complaints Eyes Reports no additional complaints ENT Reports no additional complaints Card Reports no additional complaints Resp Reports no additional complaints GI Reports no additional complaints Reports as per HPI Musc Reports no additional complaints Skin/Breast Reports system reviewed and no additional complaints, except as documented Neuro Reports no additional complaints Psych Reports no additional complaints Endo Reports no additional complaints Mesfin/Lymph Reports no additional complaints Aller/Immun Reports no additional complaints Results Reviewed Results Reviewed: Collected: 12/31/23 Status: COMP Req#: [id number] Received: 12/31/23 Source: UROTHER Sp Desc: Suprapubic Subm Dr: Martín Mayberry Ordered: Urine Culture Procedure Result Verified Urine Culture Final 01/04/24 Organism 1 Klebsiella pneumoniae Quant > 100,000 cfu/mL Organism 2 Enterococcus faecalis Quant 10,000 to 50,000 cfu/mL * * This is a Vancomycin-resistant Enterococcus * * Kleb pneum E faecalis M.I.C. RX M.I.C. RX --------- --- --------- --- Ampicillin >=32 R <=2 S Cefazolin <=4 S Ceftriaxone <=0.25 S Ciprofloxacin <=0.25 S Gentamicin <=1 S Levofloxacin >=8 R Linezolid 2 S Nitrofurantoin 128 R <=16 S Tetracycline >=16 R Tigecycline <=0.12 S Trimethoprim/Sulfamethoxazole <=20 S Vancomycin >=32 R Collected: 12/02/23 Status: COMP Req#: [id number] Received: 12/02/23 Source: UROTHER Sp Desc: Suprapubic Subm Dr: Emily Lin CNP Ordered: Urine Culture Procedure Result Verified Urine Culture Final 12/05/23 Organism 1 Pseudomonas aeruginosa Quant < 10,000 cfu/mL P aerugino M.I.C. RX --------- --- Cefepime 0.5 S Gentamicin 8 I Levofloxacin >=8 R Meropenem 4 S Piperacillin/Tazobactam <=4 S Assessment & Plan Assessment & Plan (1) BPH w urinary obs/LUTS: Code(s): N40.1 - Benign prostatic hyperplasia with lower urinary tract symptoms; N13.8 - Other obstructive and reflux uropathy (2) Urinary retention with incomplete bladder emptying: Code(s): R33.9 - Retention of urine, unspecified (3) Chronic suprapubic catheter: Code(s): Z93.59 - Other cystostomy status (4) History of bladder cancer: Code(s): Z85.51 - Personal history of malignant neoplasm of bladder Plan Maik is an 88 year old male h/o bladder cancer/bph with Supra pubiic tube-placed on 08/09/22, last cysto- 08/19/23 reported within normal limits. Scheduled for Six-month follow-up renal ultrasound. US Retroperitoneal was done on site at [facility]. 01/13/24-- Report reviewed kidneys and bladder within normal limits, left renal cyst. The patient was seen in ED on 12/03/23 and hospitalized, treated for UTI, and had recurrent UTI 12/31/23 (culture report in result section). SP tube last changed by nursing staff on 01/13/24. Review of labs: PSA 10/2021 --1.9 Plan cont methanamine bid, Vit C 500 mg daily. Consider repeat cystoscopy in 07/2024. Coding Level of Care Code 98216-Bmge Fac initial, mod Diagnoses BPH w urinary obs/LUTS N40.1; N13.8 Urinary retention with incomplete bladder emptying R33.9 Chronic suprapubic catheter Z93.59 History of bladder cancer Z85.51
== END 2024-02-01 16:30 | disposition home or self-care (01) ==
LOC: HO.HUSV 11:38
PROVIDERS: PCP Nurse Practitioner Acute Care; Visit Provider Urology
DX: N40.1 Benign prostatic hyperplasia with lower urinary tract symptoms (principal); N13.8 Other obstructive and reflux uropathy; R33.9 Retention of urine, unspecified; Z93.59 Other cystostomy status; Z85.51 Personal history of malignant neoplasm of bladder
CPT/HCPCS: 99305

== ENCOUNTER 2024-04-24 13:25 | Outpatient (REF) | payer MEDICARE, SELFPAY ==
--- OUTSIDE RECORDS SUMMARY | 2024-04-24 14:26 | XMS_ITS | Clinical Summary ---
Author Organization [employer] Address [address] [place] [address] Care Team Providers Care Plater Barrel Name Role Phone Unavailable Primary Care Provider Unavailabl e Allergies Active Allergy Reactions Criticality Noted Date Comments Lisinopril 07/07/2022 Medications acetaminophen (Tylenol) 325 MG tablet Take 650 mg by mouth every 4 (four) hours if needed. Active amLODIPine (Norvasc) 2.5 MG tablet 3 Active aspirin 81 MG EC tablet Take 81 mg by mouth in the morning. Active atorvastatin (Lipitor) 80 MG tablet 3 Active metoprolol succinate XL (Toprol-XL) 50 MG 24 hr tablet 3 Active bisacodyl (Dulcolax) 10 MG suppository Insert 10 mg into the rectum. Active escitalopram (Lexapro) 5 MG tablet 3 Active cyanocobalamin (Vitamin B-12) 1000 MCG tablet Take 1,000 mcg by mouth in the morning. Active ezetimibe (Zetia) 10 MG tablet 3 Active folic acid (Folvite) 1 MG tablet Take 1 mg by mouth in the morning. Active hydroCHLOROthiaz ignacia (HYDRODiuril) 25 MG tablet 3 Active mirtazapine (Remeron) 15 MG tablet 3 Active albuterol 108 (90 Base) MCG/ACT inhaler INHALE 2 PUFFS BY MOUTH FOUR TIMES DAILY NEEDED 2 Active cholecalciferol (Vitamin D-[address]) 25 MCG (1000 UT) tablet Take by mouth Once per day. Active furosemide (Lasix) 40 MG tablet 3 Active latanoprost (Xalatan) 0.005 % ophthalmic solution 3 Active methenamine hippurate (Hiprex) 1 g tablet 4 Active Multiple Vitamins-Mineral s (PreserVision AREDS) capsule Take 1 capsule by mouth with breakfast and with evening meal. Active potassium chloride CR (Klor-Con M10) 10 MEQ ER tablet 3 Active Active Problems Problem Noted Date Diagnosed Date Mandible pain 10/13/2022 Dental caries 08/16/2022 Social History Tobacco Use Types Packs/Day Years Used Date Smoking Tobacco: Unknown Passive Smoke Exposure: Never Smokeless Tobacco: Never Tobacco Cessation:Counseling Given: Not Answered Alcohol Use Standard Drinks/Week Comments Never 0 (1 standard drink = 0.6 oz pur e alcohol) Sex and Gender Information Value Date Recorded Sex Assigned at Male 01/25/2022 10:40 AM EDT Legal Sex Male 10:40 AM EDT Gender Identity Male 01/25/2022 10:40 AM EDT Sexual Orientation Straight 01/25/2022 10 :40 AM EDT Last Filed Vital Signs Vital Sign Reading Time Taken Comments Blood Pressure 120/82 11/25/2022 11:32 AM EDT Pulse 68 11/25/2022 11:32 AM EDT Temperature - - Respiratory Rate - - Oxygen Saturation - - Inhaled Oxygen Concentration - - Weight - - Height - - Body Mass Index - - Plan of Treatment Health Maintenance Due Date Last Done Comments Dental X-Ray: Bitewings 1936 Dental X-Ray: Full Mouth 1936 Depression Screening 1936 Lipid Panel 1936 SDOH Screening 1936 Alcohol/Substance Use Screening 1948 Zoster Vaccines (1 of 2) 1986 RSV Patients and Patients Aged 60 years or older (1 - 1-dose 75+ series) 09/23/2011 Dental Prophylaxis 11/10/2022 05/12/2022 COVID-19 Vaccine ( season) 2023 02/07/2023, 09/17/2022, 12/14/2021, Additional history exists Influenza Vaccine (#1) 2023 3, 12/30/2021, 11/26/2021, Additional history exists Dental Oral Exam 06/28/2024 12/28/2023, 07/07/2022 Tobacco Screening 12/27/2024 12/28/2023 DTaP/Tdap/Td Vaccines (3 - Td or Tdap) 04/02/2032 04/02/2022, 10/14/2017 Pneumococcal Vaccine: 65+ Years Completed 10/04/2022 HIB Vaccines Aged Out No longer eligi ble based on patient's age to complete this topic HPV Vaccines Aged Out No longer eligi ble based on patient's age to complete this topic Hepatitis A Vaccines Aged Out No long er eligible based on patient's age to complete this topic Hepatitis B Vaccines Aged Out No long er eligible based on patient's age to complete this topic IPV Vaccines Aged Out No longer eligi ble based on patient's age to complete this topic Meningococcal Vaccine Aged Out No jody amarjit eligible based on patient's age to complete this topic RSV under 20 months Aged Out No longe r eligible based on patient's age to complete this topic Rotavirus Vaccines Aged Out No longer eligible based on patient's age to complete this topic Procedures Procedure Name Priority Date/Time Associated Diagnosis Comments PERIODIC ORAL EVALUATION - ESTABLISHED PATIENT Routine 12/28/2023 3:30 PM EDT PROPHYLAXIS - ADULT Routine 05/12/2022 3:00 PM EST from Last 3 Months or Most Recently Relevant to Health Maintenance
--- OUTSIDE RECORDS SUMMARY | 2024-04-24 14:26 | XMS_ITS | Clinical Summary ---
Author Organization [facility] Address [address] [place] [address] [address] [place] [address] Phone Care Team Providers Care Scratcher Tender Name Role Phone Ramón Ortega MD Primary Care Provider [phone] Allergies Active Allergy Reactions Criticality Noted Date Comments Lisinopril Other (see comments) High 07/07/2022 Medications mirtazapine (REMERON) 15 MG tablet 3 Active metoprolol succinate XL (TOPROL XL) 50 MG 24 hr tablet 3 Active latanoprost (XALATAN) 0.005 % ophthalmic solution 3 Active hydroCHLOROthia zide 25 MG tablet 3 Active ezetimibe (ZETIA) 10 MG tablet 3 Active escitalopram (LEXAPRO) 5 MG tablet 3 Active atorvastatin (LIPITOR) 80 MG tablet 3 Active apixaban (Eliquis) 2.5 MG tablet Take 2.5 mg by mouth in the morning and 2.5 mg in the evening. Active Magnesium 400 MG tablet Take by mouth Active albuterol (2.5 MG/3ML) 0.083% nebulizer solution Take 2.5 mg by nebulization every 6 (six) hours if needed for wheezing Active acetaminophen (TYLENOL) 325 MG suppository Insert 325 mg into the rectum every 6 (six) hours if needed for mild pain Active Polyethylene Glycol 3350 4 g pack Take 1 % by mouth every 6 (six) hours if needed Active albuterol HFA (PROVENTIL HFA;VENTOLIN HFA) 108 (90 Base) MCG/ACT inhaler Inhale 2 puffs every 6 (six) hours if needed for wheezing Active guaiFENesin (ROBITUSSIN) 100 MG/5ML liquid Take 10 mL by mouth 4 (four) times a day if needed for cough Active potassium chloride (KLOR-CON M20) 20 MEQ CR tablet Take 20 mEq by mouth 1 (one) time each day Do not crush or chew. Active folic acid (FOLVITE) 1 MG tablet Take 1 mg by mouth 1 (one) time each day Active cholecalciferol (VITAMIN D-3) 25 MCG (1000 UT) tablet Take by mouth daily Active Active Problems Problem Noted Date Diagnosed Date Essential hypertension 02/24/2023 Other and unspecified hyperlipidemia 02/24/2023 02/24/2023 Macrocytic anemia 02/24/2023 02/24/2023 Overview (02/24/2023): B12 and folate deficient Depressive disorder 02/24/2023 02/24/2023 Overview (02/24/2023): Last Assessment & Plan: Continue Lexapro and Remeron. Coronary arteriosclerosis 02/24/20232022 Overview (02/24/2023): Last Assessment & Plan: No chest pain or sob. - Continue Toprol-XL, Zetia, atorvastatin and aspirin. Chronic kidney disease stage 3 02/24/2023 1 04/26/2022 Overview (02/24/2023): Baseline creatinine 1.1. Jaw pain 10/13/2022 02/24/2023 Dental caries 08/16/2022 02/24/2023 Unspecified dementia, unspec ified severity, without behavioral disturbance, psychotic disturbance, mood disturbance, and anxiety 09/06/2020 02/24/2023 Overview (02/24/2023): Last Assessment & Plan: Healthcare proxy invoked. Patient is under the impression that he will be going back home after physical rehabilitation, but his states that she is unable to care for him and he will be remaining in a facility. Hyperkalemia 09/06/2020 02/24/2023 Overview (02/24/2023): Last Assessment & Plan: Due to OLEG. On lisinopril at home. Hyperkalemia on outpatient lab, 6. Currently 5.3 -cont to monitor -hold lisinopril Acute nontraumatic kidney injury 09/06/2020 Overview (02/24/2023): Last Assessment & Plan: Due to bladder outlet obstruction. Creatinine significantly elevated from baseline of 1.1. Admission cr 3.10. Currently 1.8 after IVF. Renal ultrasound -no hydronephrosis. Decompressed bladder with catheter in place. Urinalysis reveals 1+ protein. 0-4 WBCs Bladder scan in the emergency department with >1 L of urine, mcpherson catheter placed in ER. Patient does not want a leg bag, but he is not able to make his own decisions. His stated we need to do what ever needs to be done. -hold lisinopril -IVF were d/c on 09/07, Cr improving and patient is drinking -repeat labs in am -patient will need f/u with urology as outpatient Family History Relation Status Comments Father Mother Social History Tobacco Use Types Packs/Day Years Used Date Smoking Tobacco: Never Smokeless Tobacco: Never Tobacco Cessation:Counseling Given: Not Answered Alcohol Use Standard Drinks/Week Comments Never 0 (1 standard drink = 0.6 oz pur e alcohol) Sex and Gender Information Value Date Recorded Sex Assigned at Not on file Legal Sex Male 5:06 PM EST Gender Identity Not on file Sexual Orientation Not on file Last Filed Vital Signs Vital Sign Reading Time Taken Comments Blood Pressure 100/68 01/05/2024 2:54 PM EDT Pulse 64 01/05/2024 2:54 PM EDT Temperature - - Respiratory Rate - - Oxygen Saturation 88% 01/05/2024 2:54 PM EDT Inhaled Oxygen Concentration - - Weight 80.7 kg (178 lb) 01/05/2024 2:54 PM EDT Height - - Body Mass Index - - Plan of Treatment Health Maintenance Due Date Last Done Comments Pneumococcal Vaccine: 65+ Ye ars (1 of 2 - PCV) 1941 Influenza Vaccine (#1) 2023 Hepatitis B Vaccine Aged Out No longe r eligible based on patient's age to complete this topic Insurance MEDICARE [facility] 1,2,3 (VAC[place]) MEDICARE [place] [facility] [place] 1,2,3 (VACCN) Care Teams Scratcher Tender Relationship Specialty Start Date End Date Ramón Ortega MD [address] [place] [address] , [address] [place] [address] PCP - General Medical Oncology 01/11/23
[2024-04-24 14:42] LABS: Adenovirus PCR Not Detected (Not Detect.); Bordetella parapertussis PCR Not Detected (Not Detect.); Bordetella pertussis PCR Not Detected (Not Detect.); Chlamydia pneumoniae PCR Not Detected (Not Detect.); Coronavirus 229E PCR Not Detected (Not Detect.); Coronavirus HKU1 PCR Not Detected (Not Detect.); Coronavirus NL63 PCR Not Detected (Not Detect.); Coronavirus OC43 PCR Not Detected (Not Detect.); Human metapneumovirus PCR Not Detected (Not Detect.); Influenza A PCR Not Detected (Not Detect.); Influenza B PCR Not Detected (Not Detect.); Mycoplasma pneumoniae PCR Not Detected (Not Detect.); Parainfluenza 1 PCR Not Detected (Not Detect.); Parainfluenza 2 PCR Not Detected (Not Detect.); Parainfluenza 3 PCR Not Detected (Not Detect.); Parainfluenza 4 PCR Not Detected (Not Detect.); RSV PCR Not Detected (Not Detect.); Rhino/Enterovirus PCR Not Detected (Not Detect.)
[2024-04-24 15:10] LABS: SARS-CoV-2 PCR Not Detected (Not Detect.)
== END 2024-04-24 13:26 | disposition home or self-care (01) ==
LOC: HO.HSH3E 13:25
PROVIDERS: Visit Provider Nurse Practitioner Acute Care
DX: R05.9 Cough, unspecified (principal); R50.9 Fever, unspecified
CPT/HCPCS: 87633

== ENCOUNTER 2024-04-25 05:50 | Outpatient (REF) | payer MEDICARE, SELFPAY ==
[2024-04-25 06:01] LABS: Basophils Absolute Auto 0.1 X10*3/uL (0.0-0.2); Basophils Percent Auto 0.5 % (0-2); Eosinophils Absolute Auto 0.3 X10*3/uL (0.0-0.4); Eosinophils Percent Auto 2.9 % (0-4); Hematocrit 32.4 % (42.0-52.0); Hemoglobin 10.9 g/dl (14.0-18.0); Imm Gran Abs Auto 0.11 X10*3/uL (0.00-0.03); Lymphocytes Absolute Auto 1.7 X10*3/uL (1.2-4.9); Lymphocytes Percent Auto 14.8 % (20-40); MANUAL DIFF FLAG SCAN; Mean Corpuscular HGB Conc 33.6 g/dl (31.0-36.0); Mean Corpuscular Hemoglobin 32.1 pg (27.0-33.0); Mean Corpuscular Volume 95.3 fL (80.0-98.0); Mean Platelet Volume 9.9 fL (9.4-12.4); Monocytes Absolute Auto 1.7 X10*3/uL (0.1-1.2); Monocytes Percent Auto 14.8 % (2-11); Neutrophils Absolute Auto 7.5 x10*3/uL (2.0-8.3); Platelet Count 214 X10*3/uL (160-400); Red Cell Distribution Width 12.9 % (11.0-16.0); SCAN SMEAR FLAG 1; White Blood Count 11.3 X10*3/uL (4.8-10.8)
[2024-04-25 06:14] LABS: Anion Gap 11 (12-20); Blood Urea Nitrogen 22 mg/dL (9-16); Calcium 8.5 mg/dL (8.4-10.2); Carbon Dioxide 21 mmol/L (22-29); Chloride 109 mmol/L (96-108); Estimated Glomerular Filt Rate > 60; Glucose Random 96 mg/dL (60-115); Potassium 3.4 mmol/L (3.3-5.1); Sodium 138 mmol/L (135-145)
[2024-04-25 08:39] LABS: SLIDE REVIEW VERIFIED
== END 2024-04-25 05:51 | disposition home or self-care (01) ==
LOC: HO.HSH3E 05:50
PROVIDERS: Visit Provider Nurse Practitioner Acute Care
DX: I48.91 Unspecified atrial fibrillation (principal); I51.9 Heart disease, unspecified
CPT/HCPCS: 36415; 80048; 85025

== ENCOUNTER 2024-06-07 08:35 | Outpatient (REF) | payer MEDICARE, SELFPAY ==
[2024-06-07 09:03] LABS: Cholesterol 105 mg/dL (<200); HDL Cholesterol 36 mg/dL (>40); LDL Cholesterol Calculated 51 mg/dL (<100); Triglycerides 93 mg/dL (<150)
--- OUTSIDE RECORDS SUMMARY | 2024-06-07 09:17 | XMS_ITS | Clinical Summary ---
Author Organization [facility] Address [address] [place] [address] [address] [place] [address] Phone Care Team Providers Care Hourly Sales Staff Name Role Phone Ramón Ortega MD Primary Care Provider [phone] Allergies Active Allergy Reactions Criticality Noted Date [...] Mass Index - - Plan of Treatment Upcoming Encounters Date Type Department Care Team (Late st Contact Info) Description 07/05/2024 Orders Only [facility] [address] [place] [address] Fabiano Nash MD [address] [facility] [address] [place] [address] Stage 3a chronic kidney disease (HCC) Health Maintenance Due Date Last Done Comments Pneumococcal Vaccine: 65+ Ye ars (1 of 2 - PCV) 1941 Influenza Vaccine (#1) 2023 Hepatitis B Vaccine Aged Out No longe r eligible based on patient's age to complete this topic Insurance MEDICARE [facility] 1,2,3 (VACCN) MEDICARE [facility] 1,2,3 (VACCN) Care Teams Hourly Sales Staff Relationship Specialty Start Date End Date Ramón Ortega MD [address] [place] [address] , [address] [place] [address] PCP - General Medical Oncology 01/11/23
--- OUTSIDE RECORDS SUMMARY | 2024-06-07 09:17 | XMS_ITS | Clinical Summary ---
Author Organization [employer] Address [address] [facility] [address] [place] [address] Care Team Providers Care Cleat Maker Name Role Phone Unavailable Primary Care Provider [...] or Tdap) 04/02/2032 04/02/2022, 10/14/2017 Pneumococcal Vaccine: 50+ Years Completed 10/04/2022 HIB Vaccines Aged Out [...]
== END 2024-06-07 08:36 | disposition home or self-care (01) ==
LOC: HO.HSH 08:35
PROVIDERS: Visit Provider Nurse Practitioner Acute Care
DX: E78.5 Hyperlipidemia, unspecified (principal)
CPT/HCPCS: 36415; 80061

== ENCOUNTER 2024-06-27 13:20 | Outpatient (AMB) | payer MEDICARE, SELFPAY ==
--- NOTE | 2024-06-27 13:20 | A.OFFVIS_ITS ---
Intake Visit Reasons: bladder ca follow up Intake Note: Patient is present for BLADDER CA Urology Medication:VITAMIN B12,POTASSIUM CHLORIDE,METHANAMINE HIPPURATE Antibiotic Allergy:NONE Blood Thinner:APIXABAN Curriculum And Assessment Coordinator Required: No Allergies lisinopril Allergy (Verified 06/27/24 13:22) Unknown [facility] Medical History Mucus plugging of bronchi Respiratory failure with hypoxia and hypercapnia Atelectasis of left lung BPH (benign prostatic hyperplasia) Frequent falls On beta priscilla at home Overweight (BMI 25.0-29.9) Depression Urothelial carcinoma of bladder Vitamin B12 deficiency Vitamin D deficiency GERD without esophagitis Anemia Primary osteoarthritis, right shoulder Osteoarthritis of both knees Chronic kidney disease, stage III (moderate) Impaired fasting glucose Elevated liver enzymes Subdural hematoma Benign essential hypertension Pure hypercholesterolemia Coronary artery disease Surgical History History of tonsillectomy History of transurethral resection of bladder tumor (TURBT) History of hip surgery History of transurethral resection of prostate History of shoulder surgery Family History Father CVD (cardiovascular disease) Mother Hypertension Social History Household Members: Other Housing: Group Home Housing Other:: [place] [facility] Are you a primary patient care assistant to a significant other at home: No Do you presently have visiting nurse or other home services: No Alcohol intake: former Patient Tobacco Use Status: Former Tobacco user Advance Directives Date on File: 08/18/22 service: Yes Coding
--- NOTE | 2024-06-27 15:46 | A.OFFVIS_ITS ---
Intake Intake Visit Reasons: bladder ca follow up Allergies lisinopril Allergy (Verified 06/27/24 13:22) Unknown HPI HPI Comments History of Present Illness Details Tang is a pleasant male. He is a patient of Dr. Christine. He seen for the following urologic conditions - bladder cancer - lower urinary tract symptoms [facility] visit Recent retention Requires annual visit for cystoscopy Hypergranulation tissue at site. Use of silver nitrate on floor. Bladder cancer Initial resection May 2016 Cystoscopy - 07/18 NAD Lower urinary tract symptoms Urinary retention September 2020 Associated with orthopedic procedure Medications tamsulosin PSA 11/16 1.9 Cystoscopy 07/17 large median lobe otherwise normal Failed voiding trial [facility] Medical History Mucus plugging of bronchi Respiratory failure with hypoxia and hypercapnia Atelectasis of left lung BPH (benign prostatic hyperplasia) Frequent falls On beta priscilla at home Overweight (BMI 25.0-29.9) Depression Urothelial carcinoma of bladder Vitamin B12 deficiency Vitamin D deficiency GERD without esophagitis Anemia Primary osteoarthritis, right shoulder Osteoarthritis of both knees Chronic kidney disease, stage III (moderate) Impaired fasting glucose Elevated liver enzymes Subdural hematoma Benign essential hypertension Pure hypercholesterolemia Coronary artery disease Surgical History History of tonsillectomy History of transurethral resection of bladder tumor (TURBT) History of hip surgery History of transurethral resection of prostate History of shoulder surgery Family History Father CVD (cardiovascular disease) Mother Hypertension Social History Household Members: Other Housing: Jail Housing Other:: [place] [facility] Are you a primary post acute care nurse to a significant other at home: No Do you presently have visiting nurse or other home services: No Alcohol intake: former Patient Tobacco Use Status: Former Tobacco user Advance Directives Date on File: 08/18/22 service: Yes Review of Systems Const Denies chills and Denies fever(s) Card Reports no additional complaints and Denies syncope Resp Denies cough GI Denies abdominal pain and Denies heartburn Reports as per HPI and Denies change in libido Neuro Denies syncope Psych Denies change in libido Endo Denies change in libido Physical Exam Const General: cooperative, healthy appearing, comfortable and no acute distress Orientation/consciousness: patient oriented x3 HEENT Face and sinus: Yes normal facial exam Mouth: moist mucous membranes Neck Neck: Yes normal visual inspection, Yes full ROM and Yes trachea midline Chest Chest palpation & inspection: normal inspection of the chest Resp Effort & Inspection: normal respiratory effort, able to speak in complete sentences and no respiratory distress GI Inspection: Yes normal to inspection Back/Spine/Pelvis Cervical Spine: normal cervical lordosis Thoracic/Lumbar Spine: thoracic and lumbar spine normal to inspection Skin General skin exam: no rashes or lesions noted Neuro General: patient oriented x3, gait normal, tone normal and moves all extremities Extrem General: Yes normal to inspection and Yes capillary refill normal Assessment & Plan Assessment & Plan (1) Chronic suprapubic catheter: Code(s): Z93.59 - Other cystostomy status (2) Urothelial carcinoma of bladder: Code(s): C67.9 - Malignant neoplasm of bladder, unspecified Plan Plan office cysto Patient Instructions: This note is constructed using voice recognition software. While every effort has been made to ensure accuracy corporate director of human resources errors may have been included. Imaging studies, laboratory and physical exam results were discussed and reviewed in detail. No major barriers to patient understanding were identified. An opportunity to ask questions regarding the treatment plan was provided. All questions were answered. The patient expressed understanding and agreement with the above treatment plan. The patient is aware they should contact our office by phone for worsening of their current condition or the appearance of new urologic symptoms. Compliance is encouraged with any medications and followup testing that is ordered. It is a privilege to participate in the urologic care of your patient. If you have any questions or concerns regarding treatment for the above conditions, or other urologic issues, please do not hesitate to contact me. The office telephone contact is [phone]. Sincerely, Dr Dewey Grossman MD, [facility] - Urology Compassionate Specialist Care for the Genitourinary System Coding Level of Care Code [address]-[id number] Fac sub, mod Diagnoses Chronic suprapubic catheter Z93.59 Urothelial carcinoma of bladder C67.9
--- OUTSIDE RECORDS SUMMARY | 2024-06-27 15:57 | XMS_ITS | Clinical Summary ---
Author Organization [facility] Address [address] [place] [address] [address] [place] [address] Phone Care Team Providers Care Mechanical Pencils Assembler Name Role Phone Ramón Ortega MD Primary Care Provider [phone] Allergies Active Allergy Reactions Criticality Noted Date [...] Only [facility] [address] [place] [address] Fabiano Nash MD [address] [facility] [address] [place] [address] Stage 3a chronic kidney disease (HCC) Health Maintenance Due Date Last Done Comments Pneumococcal Vaccine: 65+ Ye ars (1 of 2 - PCV) 1942 Influenza Vaccine (#1) 2023 Hepatitis B Vaccine Aged Out No longe r eligible based on patient's age to complete this topic Insurance MEDICARE [facility] 1,2,3 (VACCN) MEDICARE [facility] 1,2,3 (VACCN) Care Teams Mechanical Pencils Assembler Relationship Specialty Start Date End Date Ramón Ortega MD [address] [place] [address] , [address] [place] [address] PCP - General Medical Oncology 01/11/23
--- OUTSIDE RECORDS SUMMARY | 2024-06-27 15:57 | XMS_ITS | Clinical Summary ---
Author Organization [employer] Address [address] [facility] 7[address] [place] [address] Care Team Providers Care Associate Director Of Development Name Role Phone Unavailable Primary Care Provider [...]
== END 2024-06-27 16:30 | disposition home or self-care (01) ==
LOC: HO.HUSV 13:20
PROVIDERS: PCP Nurse Practitioner Acute Care; Visit Provider Urology
DX: Z93.59 Other cystostomy status (principal); C67.9 Malignant neoplasm of bladder, unspecified
CPT/HCPCS: 99309

== ENCOUNTER 2024-08-10 09:52 | Outpatient (AMB) | payer MEDICARE, SELFPAY ==
--- OUTSIDE RECORDS SUMMARY | 2024-08-10 10:09 | XMS_ITS | Clinical Summary ---
Author Organization [facility] Address [address] [place] [address] [address] [place] [address] Phone Care Team Providers Care Vice President Sales Name Role Phone Ramón Ortega MD Primary Care Provider [phone] Allergies Active Allergy Reactions Criticality Noted Date [...] will need f/u with urology as outpatient Encounters Date Type Department Care Team Description 07/05/2024 Orders Only [facility] [address] [place] [address] Fabiano Nash MD Stage 3a chronic kidney disease (HCC) from Last 3 Months Family History Relation Status Comments Father Mother [...] Due Date Last Done Comments Pneumococcal Vaccine: 50+ Ye ars (1 of 2 - PCV) 09/23/1954 Influenza Vaccine (Season Ended) 2024 Hepatitis B Vaccine Aged Out No longe r eligible based on patient's age to complete this topic Insurance Medicare [facility] Reg[facility] 1,2,3 (VACCN) Medicare [facility] 1,2,3 (VACCN) Care Teams Vice President Sales Relationship Specialty Start Date End Date Ramón Ortega MD [address] [place] [address] , [address] [place] [address] PCP - General Medical Oncology 01/11/23
--- NOTE | 2024-08-10 10:26 | MHC.OFFVIS ---
Intake Visit Reasons: cysto Intake Note: Patient is present for Cystoscopy Urology Medication:VITAMIN C,VITAMIN B12 Antibiotic Allergy:NONE Blood Thinner:APIXABAN Lot:[id number] Exp:08/03/26 Touch Up Worker Required: No Allergies lisinopril Allergy (Verified 08/10/24 10:33) Unknown HPI Comments Details: Tang is a pleasant male. He is a patient of Dr. Christine. He seen for the following urologic conditions - bladder cancer - lower urinary tract symptoms Office visit Accompanied by Cystoscopy normal Has a little bit of blood in bladder Hypergranulation tissue at site. Use of silver nitrate in office Bladder cancer Initial resection May 2016 Cystoscopy - 07/18 NAD Lower urinary tract symptoms Urinary retention September 2020 Associated with orthopedic procedure Medications tamsulosin PSA 11/16 1.9 Cystoscopy 07/17 large median lobe otherwise normal Failed voiding trial [facility] Medical History Mucus plugging of bronchi Respiratory failure with hypoxia and hypercapnia Atelectasis of left lung BPH (benign prostatic hyperplasia) Frequent falls On beta priscilla at home Overweight (BMI 25.0-29.9) Depression Urothelial carcinoma of bladder Vitamin B12 deficiency Vitamin D deficiency GERD without esophagitis Anemia Primary osteoarthritis, right shoulder Osteoarthritis of both knees Chronic kidney disease, stage III (moderate) Impaired fasting glucose Elevated liver enzymes Subdural hematoma Benign essential hypertension Pure hypercholesterolemia Coronary artery disease Surgical History History of tonsillectomy History of transurethral resection of bladder tumor (TURBT) History of hip surgery History of transurethral resection of prostate History of shoulder surgery Family History Father CVD (cardiovascular disease) Mother Hypertension Social History Household Members: Other Housing: Skilled Nursing Housing Other:: [facility] Are you a primary client care specialist to a significant other at home: No Do you presently have visiting nurse or other home services: No Alcohol intake: former Patient Tobacco Use Status: Former Tobacco user Advance Directives Date on File: 08/18/22 service: Yes Review of Systems Const Denies chills and Denies fever(s) Card Reports no additional complaints and Denies syncope Resp Denies cough GI Denies abdominal pain and Denies heartburn Reports as per HPI and Denies change in libido Neuro Denies syncope Psych Denies change in libido Endo Denies change in libido Physical Exam Const General: cooperative, healthy appearing, comfortable and no acute distress Orientation/consciousness: patient oriented x3 HEENT Face and sinus: Yes normal facial exam Mouth: moist mucous membranes Neck Neck: Yes normal visual inspection, Yes full ROM and Yes trachea midline Chest Chest palpation & inspection: normal inspection of the chest Resp Effort & Inspection: normal respiratory effort, able to speak in complete sentences and no respiratory distress GI Inspection: Yes normal to inspection Back/Spine/Pelvis Cervical Spine: normal cervical lordosis Thoracic/Lumbar Spine: thoracic and lumbar spine normal to inspection Skin General skin exam: no rashes or lesions noted Neuro General: patient oriented x3, gait normal, tone normal and moves all extremities Extrem General: Yes normal to inspection and Yes capillary refill normal Office Procedures Cystoscopy Consent Discussed risk and benefit or proposed procedure with the patient. Information consent for procedure given to the patient. Discussed technical aspects, risks, benefits and alternatives in full. Addressed all of the patient's questions and concerns regarding the procedure. The patient demonstrated knowledge and understanding. They wish to proceed with this procedure. Preparation The patient was prepped in the usual manner. A wind turbine mechanic was present and in the room. Genitalia was prepped with betadine solution in a sterile manner. Lidocaine Jelly 2% was placed into the urethra and 16Fr flexible Olympus cystoscope was inserted into the meatus after adequate lubrication. Procedure Cystoscopy performed using a disposable Urovue digital 16 Belgian cystoscope. Meatus circumcised Urethra anterior and posterior urethra normal Prostatic Urethra unremarkable Bladder examination with retroflexion of cystoscope Bladder Orifices normal shape and position Bladder Capacity Normal - with SPT Trabeculations grade 1 Cellule Formation None Diverticulum Formation None Mucosal Erythema None Bladder Tumor None [id number] DISPOSABLE SCOPE URO-G FLEXIBLE SCOPE Procedure code (CPT) selection complete Office Meds lidocaine HCl 2 % mucosal jelly in applicator Performing Provider: Dewey Grossman MD [facility] Administered by: Francisco Javier Santos LPN on 08/10/24 10:51 Dose Route Admin Location Dispensed Lot Number Expiration Date NDC Insurance Healthcare Representative 10 mL intra-urethral 10 mL nitrofurantoin monohydrate/macrocrystals 100 mg capsule Performing Provider: Dewey Grossman MD Performing Location[facility] Administered by: Francisco Javier Santos LPN on 08/10/24 10:51 Dose Route Admin Location Dispensed Lot Number Expiration Date NDC Insurance Healthcare Representative 100 mg PO 1 cap Assessment & Plan Assessment & Plan (1) Urothelial carcinoma of bladder: Code(s): C67.9 - Malignant neoplasm of bladder, unspecified Category: Medical Plan Six-month follow-up [facility] and Orders: Orders AMB Cystoscopy Today R33.9 - Retention of urine, unspecified, Z85.51 - Personal history of malignant neoplasm of bladder Patient Instructions: This note is constructed using voice recognition software. While every effort has been made to ensure accuracy boilermaker pipe fitter errors may have been included. Imaging studies, laboratory and physical exam results were discussed and reviewed in detail. No major barriers to patient understanding were identified. An opportunity to ask questions regarding the treatment plan was provided. All questions were answered. The patient expressed understanding and agreement with the above treatment plan. The patient is aware they should contact our office by phone for worsening of their current condition or the appearance of new urologic symptoms. Compliance is encouraged with any medications and followup testing that is ordered. It is a privilege to participate in the urologic care of your patient. If you have any questions or concerns regarding treatment for the above conditions, or other urologic issues, please do not hesitate to contact me. The office telephone contact is [phone]. Sincerely, Dr Dewey Grossman MD, [facility] - Urology Compassionate Specialist Care for the Genitourinary System Coding Level of Care Code Est Pt Level 3 (16607) Complex EM visit Add On G2211 Diagnoses Urothelial carcinoma of bladder C67.9 CPT Codes Cystoscopy - CPT: [id number] ([id number])
== END 2024-08-10 11:24 | disposition home or self-care (01) ==
LOC: HO.HUSH 09:52
PROVIDERS: PCP Nurse Practitioner Acute Care; Visit Provider Urology
DX: R33.9 Retention of urine, unspecified (principal); C67.9 Malignant neoplasm of bladder, unspecified
CPT/HCPCS: 52000

== ENCOUNTER → 2024-08-10 09:52 | Outpatient (BNVA) | payer MEDICARE, SELFPAY | PROVIDERS: PCP Nurse Practitioner Acute Care; Visit Provider Urology | DX: C67.9 Malignant neoplasm of bladder, unspecified (principal); R33.9 Retention of urine, unspecified | CPT/HCPCS: 52000 ==

== ENCOUNTER 2024-10-23 06:26 | Outpatient (REF) | payer MEDICARE, SELFPAY ==
--- OUTSIDE RECORDS SUMMARY | 2024-10-23 06:29 | XMS_ITS | Clinical Summary ---
Author Organization [employer] Address [address] [facility] 7t [place] [address] Care Team Providers Care Rhinologist Name Role Phone Unavailable Primary Care Provider [...] Active Problems Problem Noted Date Diagnosed Date Carcinoma of bladder 08/22/2024 Overview (08/22/2024): July 30, 2021 Entered By: NATASHA HINKEL Comment: hx of bladder cancer/ obstructive uropathy- permanent mcpherson Malignant neoplasm of bladder, unspecified 08/22 Unspecified dementia, unspec ified severity, without behavioral disturbance, psychotic disturbance, mood disturbance, and anxiety 08/22/2024 Encounter for fitting and adjustment of hearing aid 08/22/2024 Encounter for fitting and ad justment of spectacles and contact lenses 08/22/2024 Hearing loss 08/22/2024 Overview (08/22/2024): July 30, 2021 Entered By: NATASHA HINKLE Comment: vet has bilat hearing aids per Audiology Impacted cerumen 08/22/2024 Overview (08/22/2024): July 30, 2021 Entered By: NATASHA HINKLE Comment: recurrent due to hearing aids and needs periodic ear lavage tx Presence of intraocular lens 08/22/2024 Squamous cell carcinoma of skin of face 08/23/19 25 Arteriosclerosis of coronary artery 02/24/2023 Overview (08/22/2024): Last Assessment & Plan: No chest pain or sob. - Continue Toprol-XL, Zetia, atorvastatin and aspirin. Hyperlipidemia 02/24/2023 Macrocytic anemia 02/24/2023 Overview (08/22/2024): B12 and folate deficient Stage 3 chronic kidney disease 02/24/2023 Overview (08/22/2024): Baseline creatinine 1.1. Mandible pain 10/13/2022 Jaw pain 10/13/2022 Dental caries 08/16/2022 Acute kidney failure, unspecified 09/06/2020 Overview (08/22/2024): Last Assessment & Plan: Due to bladder [...] will need f/u with urology as outpatient Dementia 09/06/2020 Overview (08/22/2024): July 30, 2021 Entered By: NATASHA HINKLE Comment: nsg home resident at [facility] in [place]- is very supportive and [place] he have [place] Hyperkalemia 09/06/2020 Overview (08/22/2024): Last Assessment & Plan: Due to OLEG. On lisinopril at home. Hyperkalemia on outpatient lab, 6. Currently 5.3 -cont to monitor -hold lisinopril Depressive disorder 03/28/2020 Overview (08/22/2024): Last Assessment & Plan: Continue Lexapro and Remeron. 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 Encounters Date Type Department Care Team Description 09/26/2024 11:15 AM EDT Office Visit [facility] [address] [place] [address] Darian Lu DMD 09/11/2024 11:30 AM EDT Office Visit [facility] [address] [facility] [place] [address] Darian Lu DMD 09/06/2024 Telephone [facility] [address] [place] [address] Darian Lu DMD 09/05/2024 1:00 PM EDT Office Visit [facility] [address] [place] [address] Darian Lu DMD 08/22/2024 9:15 AM EDT Office Visit [facility] [address] [place] [address] Darian Lu DMD from Last 3 Months Social History Tobacco Use Types Packs/Day Years [...] 1936 Lipid Panel 1936 SDOH Screening 1936 Derm Melanoma Skin Check 03/24/1937 Alcohol/Substance Use Screening 1948 Zoster Vaccines (1 of 2) 1986 Dental Prophylaxis 11/10/2022 05/12/2022 COVID-19 Vaccine ( season) 2023 02/07/2023, 09/17/2022, 12/14/2021, Additional history exists Influenza Vaccine (#1) 2024 , 12/30/2022, 12/30/2021, Additional history exists Dental Oral Exam 02/23/2025 08/22/2024, 04/2023, 07/07/2022 Tobacco Screening 09/26/2025 09/26/2024 DTaP/Tdap/Td Vaccines (3 - Td or Tdap) 04/02/2032 04/02/2022, 10/14/2017 Pneumococcal Vaccine: 50+ Years Completed 10/04/2022 RSV Patients and Patients Aged 60 years or older Completed 02/10/2023 HIB Vaccines Aged Out No longer eligi [...] patient's age to complete this topic Meningococcal B Vaccine Aged Out No l onger eligible based on patient's age to complete [...] Procedure Name Priority Date/Time Associated Diagnosis Comments DENTURE ADJUSTMENT Routine 09/26/2024 11 :15 AM EDT RELINE COMPLETE MAXILLARY DENTURE (LABORATORY) Routine 09/11/2024 11:30 AM EDT DENTURE IMPRESSION Routine 09/05/2024 1:00 PM EDT PERIODIC ORAL EVALUATION - ESTABLISHED PATIENT Routine 08/22/2024 9:15 AM EDT CLEANING AND INSPECTION OF REM COMPLETE DENTURE, LANDON Routine 08/22/2024 9:15 AM EDT CLEANING AND INSPECTION OF REM COMPLETE DENTURE, MAX Routine 08/22/2024 9:15 AM EDT PROPHYLAXIS - ADULT Routine 05/12/2022 3:00 PM EST from Last 3 Months or Most Recently Relevant to Health Maintenance
--- OUTSIDE RECORDS SUMMARY | 2024-10-23 06:29 | XMS_ITS | Clinical Summary ---
Author Organization [facility] Address [address] [place] [address] [address] [place] [address] Phone Care Team Providers Care Sole Rounder Name Role Phone Ramón Ortega MD Primary Care Provider [phone] Allergies Active Allergy Reactions Criticality Noted Date [...] of 2 - PCV) 09/23/1954 Influenza Vaccine (#1) 2024 Hepatitis B Vaccine Aged Out No longe r eligible based on patient's age to complete this topic Insurance Medicare [facility] Reg[place] 1,2,3 (VACCN) Medicare [place] [facility] [place] 1,2,3 (VACCN) Care Teams Sole Rounder Relationship Specialty Start Date End Date Ramón Ortega MD [address] [place] [address] , [address] [place] [address] PCP - General Medical Oncology 01/11/23
[2024-10-23 06:50] LABS: Hemoglobin A1C 102.1710 umol/L; Total Hemoglobin (HGBA1C) 3260.1760 umol/L
== END 2024-10-23 06:27 | disposition home or self-care (01) ==
LOC: HO.HSH3E 06:26
PROVIDERS: Visit Provider Nurse Practitioner
DX: Z13.1 Encounter for screening for diabetes mellitus (principal); R44.3 Hallucinations, unspecified
CPT/HCPCS: 36415; 83036

== ENCOUNTER 2024-12-28 07:05 | Outpatient (REF) | payer MEDICARE, SELFPAY ==
--- OUTSIDE RECORDS SUMMARY | 2024-12-26 11:30 | XMS_ITS | Encounter Summary ---
Author Organization [employer] Address [address] [place] [address] Care Team Providers Care Child Psychiatrist Name Role Phone Unavailable Primary Care Provider Unavailabl e Reason for Visit * Reason Comments Dental Exam Encounter Details Date Type Department Care Team (Late st Contact Info) Description 12/26/2024 11:30 AM EDT Office Visit [facility] D[facility] [address] [place] [address] Darian Lu DMD [address] [place] [address] Social History Tobacco Use Types Packs/Day Years Used Date Smoking Tobacco: Unknown Passive Smoke Exposure: Never Smokeless Tobacco: Never Alcohol Use Standard Drinks/Week Comments Never 0 (1 standard drink = 0.6 oz pur e alcohol) Sex and Gender Information Value Date Recorded Sex Assigned at Male 01/25/2022 10:40 AM EDT Legal Sex Male 10:40 AM EDT Gender Identity Male 01/25/2022 10:40 AM EDT Sexual Orientation Straight 01/25/2022 10 :40 AM EDT documented as of this encounter Progress Notes * Darian Lu DMD - 12/26/2024 11:30 AM EDT F/: shorten and thin the UL alveolar area /F: shorten and thin the LR and LL posterior alveolar ridge area Pt feels better NV: denture follow up in one week Anum documented in this encounter Plan of Treatment Not on file documented as of this encounter Procedures Procedure Name Priority Date/Time Associated Diagnosis Comments DENTURE ADJUSTMENT Routine 12/26/2024 11:30 AM EDT documented in this encounter Visit Diagnoses Not on filedocumented in this encounter
--- OUTSIDE RECORDS SUMMARY | 2024-12-28 07:09 | XMS_ITS | Data Portability ---
Author Organization [facility], Main Office Address [address], [address] [place] [address] Care Team Providers Care Animal Anatomist Name Role Phone [facility] OTHER FRANCIS LUNA Primary Care Provider Assessment No assessment recorded. Plan of Treatment Reminders Order Date Submit Date Provider Last Modified By Organization Details Last Modified Time Details Appointments None record ed. Lab None record ed. Referral None record ed. Procedures None record ed. Surgeries None record ed. Imaging None record ed. Medication Orders None record ed. Patient TargetsNo targets recorded. Patient InstructionsNo instructions recorded. Reason for Referral None Reported. 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 Active 2020 JESS Burden [address], [address], [place], [address], [facility] 12:48:15 Hearing loss 97324116 Active 2020 JESS Burden [address], [address], [place], [address], [facility] 12:48:38 Acute posthemo rrhagic anemia 241067670 Active 2020 JESS Burden [address], [address], [place], [address], [place] [facility] 1 12:55:55 Fracture of neck of femur 5780364 Active 2020 JESS Burden [address], [address], [place], [address], [facility] 1 12:56:10 Chronic kidney disease stage 2 757156862 Completed 202012/01/2020 Removal Reason: diagosis revised CHUY ZIMMERMAN PA-C [address], [address], [place], [address], [employer] [facility] 1 14:47:13 Hyperten sive disorder 26246878 Active 2020 JESS Burden [address], [address], [place], [address], [facility] 1 12:56:54 Recurren t falls 955412069 Active 2020 JESS Burden [address], [address], [place], [address], [facility] 1 13:15:10 Mixed hyperlip idemia 273283391 Active 2020 JESS Burden [address], [address], [place], [address], [facility] 1 13:23:50 Hypoalbu minemia 089449599 Active 2020 Esvin Curriein null, [facility] 1 11:02:32 Atherosc lerosis of coronary artery without angina pectoris 67066219554 4103 Active 2020 Esvin Curriein null, [facility] [employer] [facility] 1 11:02:35 Impaired cognitio n 359218355 Active 2020 Esvin Curriein null, [facility] [employer] [facility] 1 11:02:37 Edema 612874235 Active 2020 Esvin Curriein null, [facility] [employer] [facility] 1 11:02:56 Glaucoma 14401662 Active 2020 Esvin Curriein null, [facility] [employer] [facility] 1 11:04:42 Mild major depressi on 01008055 Active 2020 Esvin Slater null, [facility] 1 11:05:39 Cobalami n deficien cy 769443435 Active 2020 Esvin Slater null, [facility] 1 11:06:28 Vitamin D deficien cy 25004739 Active 2020 Esvin Curriein null, [facility] 1 11:06:40 Dementia 79652398 Active 2020 Esvin Curriein null, [facility] 1 10:38:31 Age related macular degenera tion 514870470 Active 2020 Esvin Curriein null, [facility] 1 10:39:14 Retentio n of urine 656241364 Active 2020 Esvin Slater null, [facility] 1 09:14:20 Coronary atherosc lerosis 724537478 Active 2020 Esvin Slaetr null, [facility] 1 19:52:59 SARS-CoV -2 Active 2021 Beatriz Cleaning NP [address], [address], [place], [address], [facility] 2 15:12:59 Impacted cerumen in left ear 32897159326 85239 Active 2021 Beatriz Cleaning NP [address], [address], [place], [address], [facility] 2 15:30:09 Problem Notes None recorded. Medical Equipment None Reported. Allergies Allergen ID Allergen Name Allergen Category Reaction Reaction Severity Criticality Documentation Date Start Date Code Code System Note Provider Name and Address Organization Details Recorded Time 33299 lisinopri l medicatio n other severe Not available 09/23/2020 42260 RxNorm OLEG and hyper kalem ia CHUY ZIMMERMAN PA-C [address], [address], [place], [address], [facility] 1 13:15:06 Medications Not known to be on any medication Vitals Date Recorded Body height Oxygen saturation Oxygen saturation in Arterial blood by Pulse oximetry Heart rate Respiratory rate Body temperature Systolic And Diastolic Provider Name and Address Organization Details Last Updated DateTime 2 170.18 cm 97 % 97 % 55 /min 18 /min 97.6 [degF] 112/58 mm[Hg] JESS Burden [address], [address], [place], [address], [facility] 2 15:21:10 Date Recorded Body height Body mass index (BMI) Body weight Heart rate Respiratory rate Body temperature Oxygen saturation Oxygen saturation in Arterial blood by Pulse oximetry Systolic And Diastolic Provider Name and Address Organization Details Last Updated DateTime 2 170.18 cm 31.3 kg/m2 18013.4 7 g 60 /min 18 /min 97.4 [degF] 97 % 97 % 106/52 mm[Hg] Beatriz Cleaning NP [address], [address], [place], [address], [facility] 2 12:01:42 Date Recorded Body height Body mass index (BMI) Body weight Heart rate Respiratory rate Body temperature Oxygen saturation Oxygen saturation in Arterial blood by Pulse oximetry Systolic And Diastolic Provider Name and Address Organization Details Last Updated DateTime 2 170.18 cm 31.3 kg/m2 51315.4 7 g 48 /min 18 /min 97.2 [degF] 96 % 96 % 129/59 mm[Hg] Beatriz Cleaning NP [address], [address], [place], [address], [facility] 2 14:29:20 Date Recorded Body height Body temperature Oxygen saturation Oxygen saturation in Arterial blood by Pulse oximetry Heart rate Systolic And Diastolic Provider Name and Address Organization Details Last Updated DateTime 2 170.18 cm 97.8 [degF] 96 % 96 % 64 /min 106/63 mm[Hg] Deya Krishnan MD [address], [address], [place], [address], [facility] 2 06:29:20 Date Recorded Body height Body mass index (BMI) Body weight Heart rate Respiratory rate Body temperature Oxygen saturation Oxygen saturation in Arterial blood by Pulse oximetry Systolic And Diastolic Provider Name and Address Organization Details Last Updated DateTime 2 170.18 cm 31.2 kg/m2 30246.8 8 g 67 /min 18 /min 97.2 [degF] 96 % 96 % 142/72 mm[Hg] Beatriz Cleaning NP [address], [address], [place], [address], [facility] 2 12:24:01 Social History Question Answer Notes LastModified by Tellja Details LastModified Time Tobacco Smoking Status Former Smoker JESS Burden [address], [address], [place], [address], [facility] 07/10/2020 12:45:29 Do You Have An Advance Directive? Yes DNR, DNI, Transfer To Hospital, No Dialysis, No Artificial Nutrition Information not available 07/10/2020 What Is Your Code Status? DNR/DNI Information not available 12/01/2020 Legal Guardian? No Information not available 12/01/2020 Do You Have A Medical Power Of Perfusionist? Yes HCP Invoked [email or web address] Information not available 07/10/2020 What Was The Date Of Your Most Recent Tobacco Screening? 11/28/2020 [email or web address] Information not available 12/01/2020 How Much Tobacco Do You Smoke? 1 PPD [email or web address] Information not available 07/10/2020 Has Tobacco Cessation Counseling Been Provided? No N/A [email or web address] Information not available 12/01/2020 How Many Years Have You Smoked Tobacco? 20 [email or web address] Information not available 07/10/2020 Sex: Unknown Functional Status Question Answer Note LastModified by Tellja Details LastModified Time Do you or have you ever used any other forms of tobacco or nicotine? No [email or web address] Information not available 12/01/2020 What is your level of alcohol consumption? None Hx heavy: 1 bottle of wine per day; not drinking since [email or web address] Information not available 12/01/2020 Do you or have you ever used smokeless tobacco? Never used smokeless tobacco [email or web address] Information not available 07/10/2020 Do you or have you ever used e-cigarettes or vape? Never used electronic cigarettes [email or web address] Information not available 07/10/2020 Mental Status None recorded. Family History Nothing Reported. Medical History No medical history recorded. Immunizations Vaccine Type Date Status Note Provider Nam e and Address Organization Details Recorded Time COVID-19, mRNA, LNP-S, PF, 30 mcg/0.3 mL dose 05/08/2020 completed CHUY ZIMMERMAN PA-C [address], [facility] [address], [place], [address], [facility] 12/01/2020 14:48:34 COVID-19, mRNA, LNP-S, PF, 30 mcg/0.3 mL dose 06/05/2020 completed CHUY ZIMMERMAN PA-C [address], [facility] [address], [place], [address], [facility] 12/01/2020 14:48:40 Past Encounters Encounter ID Performer Location Encounter Start Date Encounter Closed Date Diagnosis/Indication Diagnosis SNOMED-CT Code Diagnosis ICD10 Code Diagnosis IMO Codes Diagnosis Note [id number] JESS Burden AT [address] [address] 07/10/2020 12:35:42 07/16/2020 09:44:34 Fracture of neck of femur 2213879 S72.001D see hpi mechanical fall at home, [place] [facility] [place]enox 40 mg sq qd till 08/20 oxycodone 5 mg q 6 hrs prn monitor right hip incisions f/u with ortho Acute post hemorrhagic anemia 823045961 D62 no labs in chart or dc summary available monitor cbc weekly - pending today Chronic ki dney disease stage 2 327788870 N18.2 limited paperwork from [facility] [place] OLEG on CKD - appears that pt's lisinopril was held at hospital avoid nephrotoxi c meds as able monitor cmp this week then bmp weekly - pending today Hypertensive disorder 38 335758 I10 bp mildly elevated lisinopril 20 mg qd - on hold til 07/12 metoprolol 25 mg bid asa 81 mg qd monitor bp and adjust meds prn 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 877894 F51.4 known hx of per lexapro 20 mg qd remeron 7.5 mg qhs gabapentin 300 mg bid per pt will wake up at night screaming psych to follow Vascular d ementia with behavioral disturbance 0891919875 68217 F01.51 per pt is forgetful will wait till pt is settled into unit to do SLUMS supportive care expect decline Hearing loss 20746859 H9 1.93 known hx of supportive care Mixed hyperlipidemia 267 238370 E78.2 zetia 10 mg qd lipitor 80 mg qhs check lipid panel once pt is LTC Recurrent falls 19690543 2 R29.6 PT OT for conditioni ng and mobility monitor for fall risk didn't think that his drinking had much to do with his falls, says they usually happened in the morning and he did not start drinking till 11 am [id number] ESVIN SLATER MD [facility] AT [address] [address] 07/11/2020 10:34:37 07/16/2020 10:27:03 Fracture of neck of femur 6417757 S72.001D continue with therapy, pain rx, DVT prophyllax is Recurrent falls 24150774 2 R29.6 will taper off gabapentin as this may predispose to falls, also reduce lexapro to 10 for same reason Macrocytic anemia 706900 05 D53.9 unclear if due to blood loss from recent surgery or other. Will give iron for a month, check B12, folate and MMA Hypertensive disorder 38 146649 I10 controlled with current rx. Will consolidat e metoprolol into a single daily dose Mixed hyperlipidemia 267 736788 E78.2 continue current rx Impaired cognition 17774 6002 R41.89 has mild to moderate impairment of cognition which is chronic. Accompanyi ng visual hallucinat ions suggestive of Lewy body dementia. can no longer care for him at home. terminal superintendent care planned Atheroscle rosis of coronary artery without angina pectoris 5557768187 89924 I25.10 continue beta priscilla, ASA, statin Hypoalbuminemia 50708862 4 E88.09 presumed due to renal disease and/or poor nutrition and/or alcoholic liver disease Alcohol dependence 21882 003 F10.20 chronic, excessive use of alcohol according to . Last drink a week ago so no risk of withdrawal at this time. Continue abstinence . Has mild liver enzyme abnormalit ies which should be rechecked in a month or so Edema 107895341 R60.9 due to hypoalbumi nemia and recent surgery. No new rx needed at this time Glaucoma 03402291 H40.9 continue current rx Age relate d macular degeneration 566681891 H35.30 continue current supplement s Mild major depression 87 234720 F32.0 continue remeron, continue lexapro after dose reduction as above Cobalamin deficiency 190 844712 E53.8 continue rx Vitamin D deficiency 347 28255 E55.9 continue rx [id number] JESS Burden AT [address] [address] 07/15/2020 13:48:11 07/17/2020 12:55:19 Fracture of neck of femur 4626147 S72.001D mechanical fall at home, [place] [facility] lovenox 40 mg sq qd till 08/20 oxycodone 5 mg q 6 hrs prn monitor right hip incisions f/u with ortho Acute post hemorrhagic anemia 200985126 D62 now on iron check cbc weekly Chronic ki dney disease stage 2 283745481 N18.2 pt's lisinopril was held at hospital - resumed on 07/12 avoid nephrotoxi c meds as able monitor cmp this week then bmp weekly - pending today Hypertensive disorder 38 337769 I10 bp mildly elevated lisinopril 20 mg qd - on hold til 07/12 metoprolol 25 mg bid asa 81 mg qd monitor bp and adjust meds prn 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 201728 F51.4 known hx of per lexapro 10 mg qd remeron 7.5 mg qhs gabapentin taper to discontinu e per pt will wake up at night screaming psych to follow Vascular d ementia with behavioral disturbance 5068982531 34518 F01.51 per pt is forgetful will wait till pt is settled into unit to do SLUMS supportive care expect decline Hearing loss 22176850 H9 1.93 known hx of supportive care Mixed hyperlipidemia 267 850546 E78.2 zetia 10 mg qd lipitor 80 mg qhs check lipid panel once pt is LTC Recurrent falls 20707276 2 R29.6 continue PT OT monitor for fall risk didn't think that his drinking had much to do with his falls, says they usually happened in the morning and he did not start drinking till 11 am [id number] JESS Burden AT [address] [address] 07/18/2020 16:13:42 07/21/2020 16:23:47 Fracture of neck of femur 6285890 S72.001D mechanical fall at home, [place] [facility] lovenox 40 mg sq qd till 08/20 oxycodone 5 mg q 6 hrs prn monitor right hip incisions f/u with ortho in 4 weeks WBAT now Acute post hemorrhagic anemia 216676501 D62 now on iron and folic acid check cbc weekly Chronic ki dney disease stage 2 941329839 N18.2 pt's lisinopril was held at hospital - resumed on 07/12 avoid nephrotoxi c meds as able monitor renal function Hypertensive disorder 38 199672 I10 bp normal for his age lisinopril 20 mg qd 7 metoprolol 50 mg qd asa 81 mg qd monitor bp and adjust meds prn 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 923692 F51.4 known hx of per lexapro 10 mg qd remeron 7.5 mg qhs gabapentin off today per pt will wake up at night screaming psych to follow Vascular d ementia with behavioral disturbance 7625768648 89379 F01.51 per pt is forgetful will wait till pt is settled into unit to do SLUMS supportive care expect decline Hearing loss 16007688 H9 1.93 known hx of supportive care Mixed hyperlipidemia 267 002751 E78.2 zetia 10 mg qd lipitor 80 mg qhs check lipid panel once pt is LT [id number] JESS Burden AT [address] [address] 07/22/2020 15:59:01 07/24/2020 11:51:12 Fracture of neck of femur 1037064 S72.001D lovenox 40 mg sq qd till 08/20 oxycodone 5 mg q 6 hrs prn monitor right hip incisions f/u with ortho in 3 weeks WBAT now Acute post hemorrhagic anemia 197389683 D62 now on iron and folic acid check cbc weekly Chronic ki dney disease stage 2 323778461 N18.2 pt's lisinopril was held at hospital - resumed on 07/12 avoid nephrotoxi c meds as able monitor renal function Hypertensive disorder 38 801467 I10 bp normal for his age lisinopril 20 mg qd metoprolol 50 mg qd asa 81 mg qd monitor bp and adjust meds prn 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 665343 F51.4 known hx of per lexapro 10 mg qd remeron 7.5 mg qhs per pt will wake up at night screaming psych prn Vascular d ementia with behavioral disturbance 3013876899 57429 F01.51 per pt is forgetful will wait till pt is settled into unit to do SLUMS supportive care expect decline Mixed hyperlipidemia 267 347203 E78.2 zetia 10 mg qd lipitor 80 mg qhs check lipid panel once pt is LTC [id number] JESS Burden AT [address] [address] 07/24/2020 16:22:49 07/28/2020 15:46:18 Fracture of neck of femur 1073176 S72.001D lovenox 40 mg sq qd till 08/20 oxycodone 5 mg q 6 hrs prn monitor right hip incisions f/u with ortho in 3 weeks WBAT now moderate edema in RLE 2/2 sitting in wheelchair Acute post hemorrhagic anemia 487221730 D62 now on iron and folic acid check cbc weekly Chronic ki dney disease stage 2 549058078 N18.2 pt's lisinopril was held at hospital - resumed on 07/12 avoid nephrotoxi c meds as able monitor renal function Hypertensive disorder 38 749239 I10 bp normal for his age lisinopril 20 mg qd metoprolol 50 mg qd asa 81 mg qd monitor bp and adjust meds prn 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 715086 F51.4 known hx of per lexapro 10 mg qd remeron 7.5 mg qhs psych prn Vascular d ementia with behavioral disturbance 1274998083 15422 F01.51 supportive care expect decline [id number] JESS Burden AT [address] [address] 07/29/2020 14:51:03 08/01/2020 11:53:31 Fracture of neck of femur 2193682 S72.001D continue PT OT lovenox 40 mg sq qd till 08/20 oxycodone 5 mg q 6 hrs prn monitor right hip incisions f/u with ortho in 2 weeks WBAT now Acute post hemorrhagic anemia 963110769 D62 now on iron and folic acid check cbc weekly Chronic ki dney disease stage 2 541226163 N18.2 creat 1.1 on 07/24 - stable pt's lisinopril was held at hospital - resumed on 07/12 avoid nephrotoxi c meds as able monitor renal function Hypertensive disorder 38 059287 I10 bp normal for his age lisinopril 20 mg qd metoprolol 50 mg qd asa 81 mg qd monitor bp and adjust meds prn 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 817351 F51.4 known hx of per lexapro 10 mg qd remeron 7.5 mg qhs psych prn Vascular d ementia with behavioral disturbance 5959469989 10076 F01.51 supportive care expect decline [id number] JESS Burden AT [address] [address] 08/01/2020 13:45:56 08/04/2020 14:48:25 Fracture of neck of femur 4722182 S72.001D continue lovenox 40 mg sq qd till 08/20 oxycodone 5 mg q 6 hrs prn monitor right hip incisions f/u with ortho in 2 weeks WBAT now Acute post hemorrhagic anemia 251684856 D62 now on iron and folic acid check cbc weekly Chronic ki dney disease stage 2 848501705 N18.2 creat 1.1 on 07/24 - stable pt's lisinopril was held at hospital - resumed on 07/12 avoid nephrotoxi c meds as able monitor renal function Hypertensive disorder 38 797487 I10 bp normal for his age lisinopril 20 mg qd metoprolol 50 mg qd asa 81 mg qd monitor bp and adjust meds prn 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 893372 F51.4 known hx of per lexapro 10 mg qd remeron 7.5 mg qhs psych prn Vascular d ementia with behavioral disturbance 5815311001 73324 F01.51 supportive care expect decline pt will stay LTC Acute diarrhea 198122840 R19.7 will send out stool for c diff monitor for worsening stools [id number] MD [facility] AT [address] [address] 08/04/2020 11:20:20 08/06/2020 14:15:38 Edema 821295394 R60.9 has chronic bilateral edema but much more so on right. Will get venous US of RLE to r/o DVT. Until result available will up lovenox dose to therapeuti c level. Fracture o f neck of femur 1347652 S72.001D will stop oxycodone now [id number] JESS Burden AT [address] [address] 08/07/2020 13:17:35 08/08/2020 15:38:28 Fracture of neck of femur 5025010 S72.001D decrease back to lovenox 40 mg sq qd till 08/20 tylenol prn monitor right hip incisions f/u with ortho WBAT now pt plateaued with rehab, off rehab RLE edema 2/2 femur fracture and repair no treatment at this time for Nguyễn's cyst Acute post hemorrhagic anemia 278968351 D62 now on iron and folic acid hgb slowly improving check cbc weekly Chronic ki dney disease stage 2 173351079 N18.2 creat 0.9 on 08/07 - stable pt's lisinopril was held at hospital - resumed on 07/12 avoid nephrotoxi c meds as able monitor renal function Hypertensive disorder 38 598777 I10 bp normal for his age lisinopril 20 mg qd metoprolol 50 mg qd asa 81 mg qd monitor bp and adjust meds prn 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 841052 F51.4 known hx of per lexapro 10 mg qd remeron 7.5 mg qhs psych prn Vascular d ementia with behavioral disturbance 7813191097 70753 F01.51 supportive care expect decline pt will stay LTC [id number] MD [facility] AT [address] [address] 08/26/2020 10:27:09 08/28/2020 15:48:27 Macrocytic anemia 05205090 D53.9 found to be folate deficient in addition to previous B12 deficiency , now on both supplement s. Vitamin D deficiency 347 71680 E55.9 order read 250 mcg per day which is 10,000 units, reduced to 1000 units per day Mixed hyperlipidemia 267 061944 E78.2 continue current rx Glaucoma 35275915 H40.9 continue current rx Atheroscle rosis of coronary artery without angina pectoris 2558564002 24381 I25.10 continue beta priscilla, ASA, statin, no evidence of ischemia. Has mild edema which is stable and not causing any symptoms so will not treat Mild major depression 87 660958 F32.0 continue remeron and lexapro Hypertensive disorder 38 176915 I10 controlled with current rx. Dementia 40512230 F03.90 stable at this time, slow progressio n anticipate d Age relate d macular degeneration 732846690 H35.30 continue current supplement [id number] JESS Burden AT [address] [address] 09/04/2020 14:23:28 09/09/2020 10:33:48 Chronic kidney disease stage 2 726255159 N18.2 will dc lisinopril recheck BMP on 09/05 and 09/08 Hypertensive disorder 38 239581 I10 bp normal for his age dc lisinopril as above metoprolol 50 mg qd asa 81 mg qd monitor bp and adjust med prn [id number] JESS Burden AT [address] [address] 09/09/2020 14:10:22 09/11/2020 15:27:14 Fracture of neck of femur 7650379 S72.001D healed f/u with ortho prn Acute post hemorrhagic anemia 372499604 D62 remains on folic acid 1 mg qd hgb stable btwn 9-10 monitor cbc Chronic ki dney disease stage 2 631915901 N18.2 see above avoid nephrotoxi c meds as able monitor renal function Hypertensive disorder 38 807678 I10 bp normal lisinopril on hold re-eval in 2 days metoprolol xl 50 mg qd asa 81 mg qd monitor bp and adjust meds prn Vascular d ementia with behavioral disturbance 1852955882 28878 F01.51 mood stable remeron 7.5 mg qhs lexapro 10 mg qd supportive care expect decline monitor mood, behaviors psych prn Acute kidney injury 1466 9001 N17.9 see hpi mcpherson placed in hospital recommend voiding trial in one week lisinopril on hold, re-eval in 2 days creat 1.5 on 09/09 will need f/u with DR Miguel barragan in [place] in one week pt has hx of bladder cancer Atheroscle rosis of coronary artery without angina pectoris 8519497390 68200 I25.10 atorvastat in 80 mg qhs asa 81 mg qd zetia 10 mg qd monitor for chest pain, sob [id number] JESS Burden AT [address] [address] 09/11/2020 13:18:36 09/16/2020 10:23:21 Acute kidney injury 33739607 N17.9 mcpherson placed in hospital recommend voiding trial in one week lisinopril on hold - would not resume as BP is low normal creat 1.2 on 09/10 f/u with DR Miguel barragan in [place] on 10/22 pt has hx of bladder cancer Fracture o f neck of femur 4583399 S72.001D healed f/u with ortho prn Acute post hemorrhagic anemia 926416140 D62 remains on folic acid 1 mg qd hgb stable btwn 9-10, though slightly lower on 09/10 at 8.9 continue to monitor cbc Chronic ki dney disease stage 2 [id number] N18.2 see above avoid nephrotoxi c meds as able monitor renal function Hypertensive disorder 38 204847 I10 bp low normal do not resume lisinopril metoprolol xl 50 mg qd asa 81 mg qd monitor bp and adjust meds prn Vascular d ementia with behavioral disturbance [id number] 04719 F01.51 SLUMS 27/30 states normal but pt does have issues with insight and while essentiall y normal SLUMS pt did not understand the workings of his mcpherson, thought he was at [facility] now, has issues with insight mood stable remeron 7.5 mg qhs lexapro 10 mg qd supportive care expect decline monitor mood, behaviors psych prn Atheroscle rosis of coronary artery without angina pectoris [id number] 81209 I25.10 atorvastat in 80 mg qhs asa 81 mg qd zetia 10 mg qd monitor for chest pain, sob [id number] MD [facility] AT [address] [address] 09/16/2020 08:26:07 09/18/2020 12:12:41 Retention of urine 630433998 R33.9 presumed due to BPH, has been on flomax for about 10 days, time for a voiding trial. Will stop mcpherson today, reinsert if unable to void in 8 hours or if PVR > 300 cc in next few days. Chronic thong dney disease stage 2 211234194 N18.2 at his baseline Hypoalbuminemia 23177144 4 E88.09 chronic and stable Hypertensive disorder 38 035778 I10 controlled with current rx, will not resume lisinopril at this time [id number] ANIL WARD AT [address] [address] 09/17/2020 12:58:47 10/17/2020 14:56:26 Retention of urine 879372949 R33.9 --1st 2 PVRs s/p mcpherson removal acceptable --cont to monitor PVRs; if > 300 cc, reinsert mcpherson--con t Flomax 0.4mg po qhs--outpa tient f/u w/ urology 10/22/20 Macrocytic anemia 828689 05 D53.9 --H&H down minimally vs last week--poss ibly multifacto rial given pmhx--cont B12 supps for hx B12 defic & macrocytic anemia--co nt to monitor; if persists or worsens, consider stool guaiacs & additional labs Leukocytosis 803567025 D 72.829 --mild; no fever, exam neg, ROS neg--cont to monitor clinically Chronic ki dney disease stage 2 751046067 N18.2 --Cr stable at 1.2--cont routine monitoring --avoid nephrotoxi c meds [id number] ANIL RM AT [address] [address] 09/23/2020 13:13:42 10/01/2020 11:02:47 Benro-ly-akvnpxx renal failure 742624583 N17.9 Hx obstructiv e uropathyBl adder scan TOYA and replace Mcpherson if at least 300 mlIncrease Flomax if retaining; could also add Proscar; however, with hx bladder ca would want to clear with his urologistI f not retaining urine, will start IV NS @ 75 ml/h x 2 L (ok for short-term artificial hydration on MOLST)Not on any meds that typically impair renal functionFo llow labs Macrocytic anemia 315532 05 D53.9 Significan t dropNo cardiac/re spiratory complaints Stool guaiac x 3Continue ASA for nowNo evidence of bleeding into site of hip fractured/ c B12 since level very therapeuti c and MMA negativeFo llow labs Acute hyponatremia 66267 02 E87.1 significan t drop over past 5 daysNot on any meds that typically affect serum Daniela evidence of volume overload on exam so may be hypovolemi c hyponatrem ia and may be giving IVF if not retaining (see above) Vitamin D deficiency 347 93104 E55.9 Check level given renal impairment ; may need or be able to d/c [id number] ANIL RM AT [address] [address] 09/24/2020 12:47:44 10/01/2020 11:13:29 Acute heart failure 78600434 I50.9 Probably iatrogenic from IVF although barely got more than 1 literWeigh t up 21 lbs since earlier this month although unk if gradual or acutePt is dyspneic although with clear lungsHeart M is newLasix 20 mg po x 1Daily weights x 1 week then weeklyCons ider repeat echo Urinary tr act obstruction 0511901 N13.9 Nurse just now bladder scanned pt for 999 ml (scanner does not go higher than this)She straight cath'd him for 900 ml then 700 ml and he was still passing urineFoley catheter to gravityInc rease Flomax to 0.8 mg po qhs - start tonightRen al and bladder u/s done during recent hospitaliz ation [facility]/u Miguel barragan [phone] for cystoscopy due to hx bladder caU/A pend and will be reviewed when available as acute UTI can also cause retention Acute hyponatremia 57424 02 E87.1 Serum osm, Urine osm/Na/Cr pendProbab ly related to intrinsic AKIdivalen ts pend for tomorrow Acute post hemorrhagic anemia 798873808 D62 Stool guaiacs pendCBC pend for am although may be hemodilute d from IVF Vitamin D deficiency 347 58508 E55.9 Level pend and will be reviewed when available [id number] ANIL RM AT [address] [address] 09/25/2020 10:54:42 10/01/2020 11:24:41 Acute heart failure 75997221 I50.9 Weight down drasticall y overnight although was also retaining a large amount of urineEdema improvedNo dyspnea todayBNP would likely not be helpful in the setting of CKD with recent AKISOsm supports volume overloadCh mary grace echo to eval ventricula r function and new murmurChec k TSH for completene ssCheck EKGWill hold off on adding standing diuretics at this point -- will follow clinically Add Mg level to labs drawn this am Urinary tr act obstruction 8113669 N13.[address] and functionin gFlomax was increased as of last nightHas appointmen t with urology later this monthFaile d voiding trialGiven ongoing retention and hx bladder ca with recommenda tion for cystoscopy , will not reattempt voiding trial between now and urology f/u Acute hyponatremia 70605 02 E87.1 Serum Na improvedFo llow divalents Acute post hemorrhagic anemia 774774470 D62 Stool guaiacs pendRemain s on ASAH&H essentiall y unchanged last few daysFollow labsCheck Fe studies and hemolysis labs Vitamin D deficiency 347 41118 E55.9 Suprathera peutic leveld/c supplement Acute-on-c hronic renal failure 127849383 N17.9 Improved with insertion of Mcpherson and brief IVFCheck MgFollow labs [id number] ANIL RM AT [address] [address] 09/26/2020 10:10:32 10/18/2020 03:48:37 Hypomagnesemia 506544695 E83.42 Mag oxide 400 mg po dailyMg level 1 week Anemia in chronic kidney disease 957156600 D63.1 hemolysis labs negative so far -- await rest of resultseut hyroidanem ia likely related to CKDfollow CBC [id number] ANIL RM AT [address] [address] 09/30/2020 11:17:42 10/17/2020 15:46:42 Lower urinary tract obstructive syndrome 19085937 N13.9 resolved with FoleyConti nue Mcpherson until seen by uroContinu e Flomax 0.8 mg po qhsUrology f/u later this month Acute-on-c hronic renal failure 541646794 N17.9 resolved with FoleyRenal labs baseline Acute post hemorrhagic anemia 603968955 D62 Stool guaiacs pendH&H improvedre ameya on daily ASAhemolyt ic labs negative Congestive heart failure 79211387 I50.9 EKG and Echo unrevealin gWeight overall down since Mcpherson insertionD yspnea resolvedEd elina improvedOn ly had a 1-time dose of LasixMay have all been related to obstructiv e uropathyFo llow clinically No indication for diuretic therapy at this time [id number] ANIL RM AT [address] [address] 10/02/2020 14:32:39 10/17/2020 16:00:00 Anemia of chronic renal failure 72758340 D63.1 H&H down from prior but overall stableAwai t rest of stool guaiacsFol low CBC Secondary hypomagnesemia 716256904 E83.42 level therapeuti c on supplement no changes needed at this time Acute-on-c hronic renal failure 365477534 N17.9 resolved with FoleyLabs stableNo changes Weight loss 04353285 R63 .4 Had only 1 dose Lasix after iatrogenic CHF from IVFNot sure if weights closer to admit were validFollo w clinically [id number] ANIL RM AT [address] [address] 10/06/2020 15:01:18 10/21/2020 03:48:24 Anemia in chronic kidney disease 792880236 D63.1 stool guaiacs negcontinu e ASAFollow labs [id number] ANIL RM AT [address] [address] 10/10/2020 19:02:32 10/30/2020 03:48:34 Chronic anemia 784696438 D64.9 suspect due to CKDGuaiacs negativeIm proved and stableNo change in plansDecre ase frequency of monitoring labs Chronic ki dney disease stage 3 478630566 N18.30 improved and baselineAK I resolved with treatment of obstructiv e uropathyDe crease frequency of lab monitoring [id number] ANIL RM AT [address] [address] 5 10/16/2020 21:16:04 10/22/2020 03:47:58 Cphwh-qu-domytta renal failure 972222384 N17.9 resolved with FoleyLabs stable - clarify lab monitoring has been adjusted to less frequent [id number] ANIL RM AT [address] [address] 10/22/2020 20:38:45 12/11/2020 03:48:27 Retention of urine 899798593 R33.9 Continue indwelling FoleyClari fy with urologist if Flomax should be continued or if there is a plan for future voiding trial [id number] MD [facility] AT [address] [address] 10/28/2020 13:17:00 10/31/2020 13:07:51 Hypertensive disorder 16890880 I10 controlled with current rx, Coronary atherosclerosis 389036273 I25.10 no evidence of failure or ischemia at this time 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 continue remeron and lexapro Retention of urine 52623 4002 R33.9 presumed due to BPH, treated with flomax but failed voiding trial and urology recommends chronic mcpherson, will stop flomax Dementia 20623373 F03.90 stable at this time, slow progressio n anticipate d [id number] ANIL RM AT [address] [address] 11/28/2020 13:08:51 12/03/2020 12:21:01 Benign prostatic hyperplasia with outflow obstruction 361233485 N40.1 Chronic FoleyPrevi ously failed voiding trialsSeen by urologistn o plan for future voiding trialsMoni tor and f/u prn Chronic ki dney disease stage 3 632405027 N18.30 StableCaut ion with nephrotoxi c meds Dyslipidemia 096525771 E 78.5 Continue Lipitor 80 mg po qhsHx CVA and CAD -- no change in dose at this time [id number] MD [facility] AT [address] [address] 12/24/2020 14:45:19 12/26/2020 10:55:08 Atherosclerosis of coronary artery without angina pectoris 9658353046 71769 I25.10 continue beta priscilla, ASA, statin, no evidence of ischemia or failure Dementia 70588936 F03.90 stable at this time, slow progressio n anticipate d Glaucoma 94523842 H40.9 continue current rx Hypertensive disorder 38 244841 I10 last reading slightly elevated but at gaol 90% of recent reading so will continue with current rx, Mild major depression 87 035293 F32.0 doing well on remeron and lexapro Retention of urine 52887 4002 R33.9 presumed due to BPH, treated with flomax but failed voiding trial and urology recommends chronic mcpherson [id number] JESS Burden AT [address] [address] 02/09/2021 15:12:57 02/11/2021 12:52:38 Atherosclerosis of coronary artery without angina pectoris 9059989138 44833 I25.10 atorvastat in 80 mg qhs asa 81 mg qd zetia 10 mg qd monitor for chest pain, sob Dementia 75344908 F01.50 supportive careexpect declineno treatment Mild major depression 87 395252 F32.0 mood stablelexa pro 5 mg qdremeron 7.5 mg qhsmonitor moodpsych prn Hypertensive disorder 38 800657 I10 sbp readings 120s-150s metoprolol xl 50 mg qd asa 81 mg qd monitor bp and adjust meds prn [id number] MD [facility] AT [address] [address] 03/16/2021 09:15:33 03/19/2021 11:35:27 Atherosclerosis of coronary artery without angina pectoris 7033787681 43024 I25.10 continue beta priscilla, ASA, statin, no evidence of ischemia or failure Cobalamin deficiency 190 428055 E53.8 continue rx with oral B12 Dementia 98298759 F01.50 stable at this time, slow progressio n anticipate d Glaucoma 48596433 H40.9 continue current rx Hypertensive disorder 38 354685 I10 bp elevated 40% of recent readings, will up metoprolol to 100 mg daily Mild major depression 87 364044 F32.0 doing well on remeron and lexapro [id number] JESS Burden AT [address] [address] 04/28/2021 14:09:23 05/01/2021 12:11:28 Atherosclerosis of coronary artery without angina pectoris 6166841098 65909 I25.10 atorvastat in 80 mg qhs asa 81 mg qd zetia 10 mg qd monitor for chest pain, soblipid panel, CMP, CBC on 04/29 Dementia 49482844 F01.50 supportive careexpect declineno treatment Mild major depression 87 840391 F32.0 mood stablelexa pro 7.5 mg qdremeron 7.5 mg qhsmonitor moodpsych prn Hypertensive disorder 38 256556 I10 bp slightly elevated, no change metoprolol xl 100 mg qd asa 81 mg qd monitor bp and adjust meds prn Retention of urine 78882 4002 R33.9 schedule flush of mcpherson with 10 cc normal saline q Tuesday and prn discomfort will f/u with urolgist in [id number] JESS Burden AT [address] [address] 06/01/2021 13:08:44 06/03/2021 11:39:30 Dementia 85204487 F01.50 Mood stablesupp ortive careexpect declineno treatment Hypertensive disorder 38 146829 I10 BP is stableCont inue metoprolol xl 100 mg qd Continue asa 81 mg qd monitor bp and adjust meds prn Cough 89240318 R05.8 Patient c/o non-produc tive cough. Wheezing noted to bilateral lungs.Star t Albuterol 90mcg inhaler with aerochambe r - 2 puffs PO three times a day x1week and every 4 hours PRN for wheezing/S OBRobituss in - 10ml PO Q6H PRN coughmonit or for worsening sxs [id number] MD [facility] Del[facility] AT [address] [address] 06/03/2021 07:59:26 06/09/2021 09:37:31 Dementia 89209144 F01.50 will monitor and support as neededexpe ct declinesee meds for mixed anxiety/de pressive disorder Coronary atherosclerosis 787994682 I25.10 ASA 81 mg dailyatorv astatin 80 mg dailymetop rolol ER 100 mg dailywill monitor Cobalamin deficiency 190 717633 E53.8 B12 1000 mcg dailywill monitor Hypertensive disorder 38 941592 I10 metoprolol ER 100 mg dailywill monitor 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 escitalopr am 7.5 mg dailymirta zapine 7.5 mg at hswill monitor Hyperlipidemia 56044683 E78.49 ezetimibe 10 mg dailyatorv astatin 80 mg dailywill monitor Cough 28431204 R05.1 suspect URIconside r GERD, pneumonia, pulmonary edema if persists or worsensalb uterol HFA: 2 puffs q4h prnguaifen esin liquid prnconside r CXR, short course steroids for acute bronchitis if symptoms persist [id number] ÁNGELA Camacho AT [address] [address] 5 06/08/2021 12:26:22 06/10/2021 11:09:03 Dementia 01712604 F01.50 monitor and support as neededexpe ct declinesee meds for mixed anxiety/de pressive disorder Mixed anxi ety and depressive disorder 634857028 F41.8 contescita lopram 7.5 mg dailymirta zapine 7.5 mg at hsmonitor Cough 01069832 R05.1 suspect URIconside r GERD, pneumonia, pulmonary edema if persists or worsenscon t albuterol HFA: 2 puffs q4h prncont guaifenesi n liquid prnCXR done this am. Awaiting results.co nsider short course steroids for acute bronchitis if symptoms persist [id number] JESS Burden [facility] AT [address] [address] 06/15/2021 17:16:30 06/18/2021 13:25:15 Respiratory tract congestion and cough 992697982 R05.8 does not appear to be in distressco ntinue prn proventil and robitussin monitor for worsening sxs [id number] JESS Do [facility] AT [address] [address] 07/08/2021 13:00:08 07/15/2021 11:04:27 Dementia 99462390 F01.50 Appears mild-moder ate at baselineEx pect declinePsy ch eval prnsee meds for mixed anxiety/de pressive disorder Coronary atherosclerosis 347342131 I25.10 ASA 81 mg dailyatorv astatin 80 mg dailymetop rolol ER 100 mg dailywill monitor Cobalamin deficiency 190 487692 E53.8 B12 1000 mcg dailywill monitor Hypertensive disorder 38 636404 I10 metoprolol ER 100 mg dailyAppea rs well controlled will monitor Mixed anxi ety and depressive disorder 172555160 F41.8 escitalopr am 7.5 mg dailymirta zapine 7.5 mg at hsPsych eval prn Hyperlipidemia 44186682 E78.49 ezetimibe 10 mg dailyatorv astatin 80 mg dailywill monitor [id number] Beatriz Cleaning NP [facility] AT [address] [address] 07/13/2021 11:11:32 07/15/2021 14:24:19 Dementia 36153556 F01.50 Appears mild-moder ate at baselineEx pect declinePsy ch eval prnsee meds for mixed anxiety/de pressive disorder SARS-CoV-2 681146826 U07 .1 tested positive for covid 19 on 07/12/21sta rted on paxlovid on 07/13/21 x5 daysstart mucinex po bid prnwill get labs weekly x 2 weeksencou rage fluidsprec autions in placemonit or Impacted c erumen in left ear 3584217971 545051 H61.22 impacted cerumen to left eardebrox 4 gtts to left ear bid x 3 days and flush on day 4 with warm watermonit or [id number] JESS Burden AT [address] [address] 07/14/2021 12:42:55 07/16/2021 11:35:40 Dementia 65485832 F01.50 supportive careExpect declinemoo d stablereme pepito 7.5 mg qhslexapro 7.5 mg qdPsych prn Coronary atherosclerosis 147768098 I25.10 ASA 81 mg qdatorvast atin 80 mg qhsmetopro lol ER 100 mg qdezetmibe 10 mg qdmonitor for sob, chest pain Hypertensive disorder 38 951890 I10 BP elevated today though most readings are SBP < 150continu e metoprolol ER 100 mg qdcontinue BP QDadjust meds prn Mixed anxi ety and depressive disorder 230348364 F41.8 mood stableesci talopram 7.5 mg qdmirtazap ine 7.5 mg qhsPsych prn Hyperlipidemia 13491120 E78.49 ezetimibe 10 mg qdatorvast atin 80 mg qdLFTs and lipid panel normal in May 2021 SARS-CoV-2 052415748 U07 .1 tested positive for covid 19 on 07/12/21sta rted on paxlovid on 07/13/21 x5 daysstart mucinex po bid prnwill get labs weekly x 2 weeksmonit or for resp, gi distress, bowelsenco urage fluidsprec autions in placemonit or [id number] ÁNGELA Camacho AT [address] [address] 07/15/2021 16:12:32 07/17/2021 10:46:04 SARS-CoV-2 405110803 U07.1 tested positive for covid 19 on 07/12/21sta rted on paxlovid on 07/13/21 x5 dayscontin uemucinex po bid prnlabs weekly x 2 weeks to monitor renal function with history of akiencoura ge fluidsprec autions in placemonit or Impacted c erumen in left ear 7693105238 259669 H61.22 impacted cerumen to left eardebrox 4 gtts to left ear bid x 3 days and flush on day 4 with warm water started on r Dementia 38968756 F01.50 Appears mild-moder ate at baselineEx pect declinePsy ch eval prnsee meds for mixed anxiety/de pressive disorder [id number] Gerardo Fraire NP [facility] AT [address] [address] 07/16/2021 15:25:35 07/20/2021 16:15:35 SARS-CoV-2 292589097 U07.1 tested positive for covid 19 on 07/12/21sta rted on paxlovid on 07/13/21 x5 dayscontin uemucinex po bid prnlabs weekly x 2 weeks to monitor renal function with history of akiencoura ge fluidsprec autions in placemonit or and adjust interventi ons as indicated Impacted c erumen in left ear 4636166621 230253 H61.22 impacted cerumen to left eardebrox 4 gtts to left ear bid x 3 days and flush on day 4 with warm water started on r and adjust interventi ons as indicated [id number] Beatriz Cleaning NP [facility] AT [address] [address] 5 07/17/2021 14:11:19 07/21/2021 14:15:59 SARS-CoV-2 922180696 U07.1 tested positive for covid 19 on 07/12/21sta rted on paxlovid on 07/13/21 x5 dayscontin uemucinex po bid prnstart tessalon perles 100 mg po tidlabs weekly x 2 weeks to monitor renal function with history of akiencoura ge fluidsprec autions in placemonit or and adjust interventi ons as indicated Impacted c erumen in left ear 4021122534 385979 H61.22 impacted cerumen to left earspeak loudly into left ear as it is his better eardebrox 4 gtts to left ear bid x 3 days and flush on day 4 with warm water started on 07/13monito r and adjust interventi ons as indicated [id number] JESS Burden [facility] AT [address] [address] 07/20/2021 15:37:13 07/22/2021 11:32:23 SARS-CoV-2 082050389 U07.1 tested positive for covid 19 on 07/12/21fin ished paxlovidmu cinex po bid and q day prntessalo n perles 100 mg po tid till 07/25/21lab s weekly x 2 weeks to monitor renal function with history of akiencoura ge fluidsprec autions in placemonit or and adjust interventi ons as indicated Impacted c erumen in left ear 9234163516 439992 H61.22 pt continues with cerumen blockage in both earsrefer to ENT to flush ears [id number] Beatriz Cleaning NP [facility] AT [address] [address] 5 07/22/2021 19:17:12 07/27/2021 10:48:18 SARS-CoV-2 575176031 U07.1 tested positive for covid 19 on 07/12/21 and finished quarantine todayfinis hed paxlovidmu cinex po bid and q day prntessalo n perles 100 mg po tid till 07/25/21lab s okayencour age fluidsprec autions in placemonit or and adjust interventi ons as indicated Impacted c erumen in left ear 0780443231 668191 H61.22 pt continues with hearing decreasere terra to ENT to flush ears ([facility]pt states has an appt to fix his broken hearing aidemonito r [id number] Beatriz Cleaning NP [facility] AT [address] [address] 5 07/27/2021 12:31:31 07/29/2021 11:03:43 SARS-CoV-2 739280807 U07.1 resolvedte sted positive for covid 19 on 07/12/21 and finished quarantine todayfinis hed paxlovidfi nished mucinex po bid and q day prn, tessalon perles 100 mg po tid till 07/25/21 Impacted c erumen in left ear 2927617434 741758 H61.22 pt continues with hearing decrease?r efer to ENT to flush ears ([facility] only getting bulb syringe flushesit is unclear if he is seeing a specialist at the in for his ears or a pcpsocial work consulted to help with care as it is not clear if james garber is a specialist or pcp per wifehearin g aides fixed per wifecontin ue debrox 5 gtts to left ear twice today and then bid until july 30 then send to in for fu or flush here.monit or [id number] ÁNGELA Camacho AT [address] [address] 07/31/2021 11:58:04 08/03/2021 14:03:21 Impacted cerumen in left ear 8407403930 833873 H61.22 pt hearing improved [facility]he [facility] cerumen with hearing loss and hearing aidshad cerumen removed [facility] with drill on 07/30 and hearing is improvedde brox 4 gtts to each ear bid x 3 days and flush on day 4 with warm water monthly start on 09/08/21app t to fu with [facility] Randy almaguer [facility] on 11[facility]21 and needs flushing prior which will coincide with abovemonit or [id number] MD [facility] Del[facility] AT [address] [address] 08/12/2021 07:36:17 08/17/2021 12:26:10 Coronary atherosclerosis 346480012 I25.10 ASA 81 mg dailyatorv astatin 80 mg dailymetop rolol ER 100 mg dailywill monitor Cobalamin deficiency 190 804479 E53.8 B12 1000 mcg dailywill monitor Hypertensive disorder 38 595498 I10 metoprolol ER 100 mg dailywill monitor Mixed hyperlipidemia 267 884711 E78.2 ezetimibe 10 mg dailyatorv astatin 80 mg dailywill monitor Mixed anxi ety and depressive disorder 406496542 F41.8 escitalopr am 7.5 mg dailymirta zapine 7.5 mg at hswill monitor Osteoarthritis 258215252 M15.0 APAP 1000 mg bid and 500 mg q4h prnwill monitor SARS-CoV-2 808460203 U07 .1 tested positive 07/12/21sta rted Paxlovid 07/13/21had mild course and recoveredw ill continue to monitor Impaired cognition 22078 6002 R41.89 will monitor and support as neededexpe ct declinesee meds for mixed anxiety/de pressive disorder [id number] ÁNGELA Camacho AT [address] [address] 5 08/13/2021 14:22:15 08/17/2021 12:49:42 Dementia 82683175 F01.50 Appears mild-moder ate at baselineEx pect declinePsy ch eval prnsee meds for mixed anxiety/de pressive disorder Hypertensive disorder 38 936881 I10 pt has increased bp of 172/70 however recent bps on the high side in the 140's lately.sta rt amlodipine 2.5 mg po dailyhr low at 47 x1, usually in the 55-72 rangeconsi luis decreasing metoprolol if hr cont to be lowmonitor [id number] JESS Burden AT [address] [address] 5 08/31/2021 15:20:33 09/02/2021 14:18:06 Retention of urine 932335914 R33.9 pt is feeling fine todayconti nue flush of mcpherson with 10 cc normal saline q Tuesday and prn discomfort will f/u with urologist in pt has another episode of bladder spasms not relieved with mcpherson flush then could consider adding small dose of oxybutynin at hs [id number] ÁNGELA Camacho AT [address] [address] 5 09/14/2021 12:00:28 09/16/2021 14:07:50 Dementia 51300478 F01.50 Appears mild-moder ate at baselineSL UMS todayExpec t declinePsy ch eval prnsee meds for mixed anxiety/de pressive disorder Hypertensive disorder 38 605767 I10 recently had amlodipine 2.5 mg po daily added in Maybps remain labile with less high bpsconside r decreasing metoprolol if hr cont to be lowhr 60 today and stablemoni tor Coronary atherosclerosis 031168607 I25.10 contASA 81 mg dailyatorv astatin 80 mg dailymetop rolol ER 100 mg dailywill monitor Cobalamin deficiency 190 994466 E53.8 contB12 1000 mcg dailywill monitor Mixed hyperlipidemia 267 253055 E78.2 contezetim johanna 10 mg dailyatorv astatin 80 mg dailywill monitor Mixed anxi ety and depressive disorder 167132020 F41.8 contescita lopram 7.5 mg dailymirta zapine 7.5 mg at hswill monitor Osteoarthritis 037717690 M15.0 contAPAP 1000 mg bid and 500 mg q4h prnwill monitor Impaired cognition 10985 6002 R41.89 will monitor and support as neededexpe ct declinesee meds for mixed anxiety/de pressive disorder Hearing loss [id number] H9 1.93 pt is following up at [facility] he does not need debrox anymoremon itor Retention of urine 59985 4002 R33.9 reports blockage of urine yesterday resolved with new foleycontc hange mcpherson out per nsg and flush mcpherson as neededusin g leg bag and night bagmonitor urine for amt/color/ clarity [id number] ÁNGELA Camacho AT [address] [address] 09/16/2021 14:26:27 2021 16:24:55 Coronary atherosclerosis [id number] I25.10 HR is 49 today and has had several low hr/asympto maticcontA SA 81 mg dailyatorv astatin 80 mg dailydecre ase metoprolol ER 100 mg daily to 50 mg ER dailywill monitor [id number] MD WEST Delgado AT [address] [address] 10/21/2021 06:29:01 10/23/2021 12:03:41 Dementia [id number] F01.50 will monitor and support as neededexpe ct declinesee meds for mixed anxiety/de pressive disorder Coronary atherosclerosis [id number] I25.10 ASA 81 mg dailyatorv astatin 80 mg dailymetop rolol ER 50 mg dailywill monitor Cobalamin deficiency 190 874578 E53.8 B12 1000 mcg dailywill monitor Mixed anxi ety and depressive disorder 910755146 F41.8 escitalopr am 7.5 mg dailymirta zapine 7.5 mg at hswill monitor Osteoarthritis 161706068 M15.0 APAP 1000 mg bid and 500 mg q4h prnwill monitor Mixed hyperlipidemia 267 375533 E78.2 ezetimibe 10 mg dailyatorv astatin 80 mg dailywill monitor Hypertensive disorder 38 740160 I10 metoprolol ER 50 mg dailyamlod ipine 2.5 mg dailywill monitor [id number] Beatriz Cleaning NP FELLSMERE AT [address] [address] 11/03/2021 12:22:43 11/05/2021 11:26:48 Dementia [id number] F01.50 monitor and support as needed at [facility] for mixed anxiety/de pressive disorder Coronary atherosclerosis [id number] I25.10 ASA 81 mg dailyatorv astatin 80 mg dailymetop rolol ER 50 mg daily(rece ntly decreased due to low hr in the 40s, now stable)mon itor with pcp Cobalamin deficiency 190 767775 E53.8 B12 1000 mcg dailymonit or with pcp Mixed anxi ety and depressive disorder 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 escitalopr am 7.5 mg dailymirta zapine 7.5 mg at hsmonitor with pcp Osteoarthritis 849617123 M15.0 APAP 1000 mg bid and 500 mg q4h prnmonitor with pcp Mixed hyperlipidemia 267 353294 E78.2 ezetimibe 10 mg dailyatorv astatin 80 mg dailymonit or with pcp Hypertensive disorder 38 252856 I10 metoprolol ER 50 mg daily (hr stable in 60s after decrease)a mlodipine 2.5 mg dailybp monitor with pcp (140s /70s lately) Hyperlipidemia 29102497 E78.49 ezetimibe 10 mg qdatorvast atin 80 mg qdLFTs and lipid panel normal in May 2021monito r with pcp Age relate d macular degeneration 774149137 H35.30 stablelant anoprolst sha 0.005 % 1 gtt to both eyes dailyprese rvision 1 tab bidmonitor with pcp Retention of urine 11342 4002 R33.9 reports blockage of urine yesterday resolved with foleycontc hange mcpherson out per nsg and flush mcpherson as neededusin g leg bag and night bagmonitor urine for amt/color/ [facility] with [facility] Con[facility] Section Related Observation LastModified by Organization Detai ls LastModified Time None Recorded Concern Status LastModified by Organization Details LastModified Time None Recorded Advance Directives Directive Y: DNR, DNI, transfer to [facility], no dialysis, no artificial nutrition Payers Insurance Date Sequence Insurance Name Policy Number Policy Molina Covered Member ID Molina Member ID Guarantor Name 11/03/2021 2 [place] [facility] Maik Myrick [id number] Maik Myrick 11/03/2021 1 [place] B[place] [employer] Maik Myrick [id number] Maik Myrick 09/26/2020 1 [place] (MEDICARE [place]PLACEMENT PPO) [id number] Maik Myrick [id number] Maik Myrick Notes Date Note Type Note Provider Name and Address Organization Details Recorded Time 08/31/2021 text/html ROS as noted in the HPI 85 year old male seen today for acute rounding visit. per nursing pt had been c/o bladder spasms mostly at night requiring them to change his mcpherson. once they change the mcpherson the spasms resolve. pt has an order to flush with 10 cc of normal saline if c/o bladder discomfort. also has appt with urologist next in Nov. UA sent out on 08/29, C & S not back yet. Medical history is remarkable for cognitive impairment, CAD, hypertension, depression, hyperlipidemia, unsteady gait, chronic urinary retention with Fole yMOLST: DNR, DNI, okay to transfer to hospital - signed 02/27/21 JESS Burden [address], [address], [place], [address], [facility] 08/31/2021 15:29:11 09/14/2021 text/html ROS as noted in the HPI This 85 year old male halfway care resident is seen today for routine rounding visit. Medical history is remarkable for cognitive impairment, CAD, hypertension, depression, hyperlipidemia, unsteady gait, chronic urinary retention with Mcpherson Patient had significantly reduced hearing despite hearing aides. He was seen at [facility] and patient reported that a drill was used to removed impacted cerumen with terrific improvement in his hearing. He now has a plan to go to [facility] regularly to monitor cerumen in ears. He was on monthly ear cleanings with debrox but they seem to be d/c'd today. [facility] states [facility] and he doesn't need them anymore here . His ears are clean without cerumen build up today. He was started on amlodipine 2.5 mg for increased bps in addition to metoprolol ER 100 mg daily in July. His BPs lately are 106/52 to 150/72. Will not change meds at this time due to the labile BPs. Pt is in his wheelchair eating lunch without difficulty. He shares a story about his day trip with his family on Tuesday. He also mentions his mcpherson was clogged last night and a new mcpherson was placed which fixed the back up . His urine is clear yellow in his leg bag today. He has a small red area on his left inner upper thigh. It is flat, not raised, no drainage, and is a pink even coloring. He states it from the leg bag and depend rubbing against it at times which is likely due to placed of the two and area affected. He reports the barrier cream works well for it. Overall he is doing well and eats 100% of meals and has gained 4 lbs over the last month even with covid. A SLUMs score was done today 20/30. A ward scale was done with a high risk. He saw podiatry on 08/03/21. [facility] saw pt on 07/01/21. Of note; Patient tested positive for COVID-19 on 07/12/21. He was started on Paxlovid on 07/13/21. He had a mild course and recovered. MOLST: DNR, DNI, okay to transfer to hospital - signed 02/27/21 Beatriz Cleaning NP [address], [address], [place], [address], 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 Medical history is remarkable for cognitive impairment, CAD, hypertension, depression, hyperlipidemia, unsteady gait, chronic urinary retention with Mcpherson Pt seen today regarding his hr of 48 per nursing. He has been having several low hr according to the MAR and nursing has had to hold his metoprolol 100 mg ER. Pt assessed and hr is 49 o2 sat is 99 %. Pt states he feels fine and cooperative with assessment today in [facility]. He understands this [employer] will reduce his metoprolol today. MOLST: DNR, DNI, okay to transfer to hospital - signed 02/27/21 Beatriz Cleaning NP [address] [address], [place], [address], [email or web address] 09/16/2021 14:37:41 10/21/2021 text/html ROS as noted in the HPI This 86 year old male halfway care resident is seen today for routine rounding visit. Medical history is remarkable for cognitive impairment, CAD, hypertension, depression, hyperlipidemia, unsteady gait, chronic urinary retention with Mcpherson Pulse had been running low, so metoprolol ER decreased to 50 mg daily on 09/17/21 with good effect. Pulse now in 60s and BP in good range. Today patient is sitting in a wheelchair in his room watching television in [facility]. He tells me that he feels good today. 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 Medical history is remarkable for cognitive impairment, CAD, hypertension, depression, hyperlipidemia, unsteady gait, chronic urinary retention with Mcpherson, hx of right fractured femur healed now. Recently at [place] his pulse had been running low, so metoprolol ER decreased to 50 mg daily on 09/17/21 with good effect. Pulse now in 60s and BP in 140s/ 70s range. He had a significant cerumen impaction effecting both ears requiring multiple debrox treatments [facility] He had covid in June 2021 and recovered with a mild course. Today patient is sitting in a wheelchair in his room watching television in [facility]. He tells me that he feels good and is excited to [facility] so it is closer for his . He has no complaints or concerns today. MOLST: DNR, DNI, okay to transfer to hospital - signed 02/27/21 Beatriz Cleaning NP [address], [address], [place], [address], [facility] 11/03/2021 12:38:51
--- OUTSIDE RECORDS SUMMARY | 2024-12-28 07:09 | XMS_ITS | Clinical Summary ---
Author Organization [facility] Address [address] [place] [address] [address] [place] [address] Phone Care Team Providers Care Recreation Leader Name Role Phone Ramón Ortega MD Primary Care Provider [phone] Allergies Active Allergy Reactions Criticality Noted Date [...] age to complete this topic Insurance Medicare [facility] Regions 1,2,3 (VACCN) Medicare [place] [employer] Regions 1,2,3 (VACCN) Care Teams Recreation Leader Relationship Specialty Start Date End Date Ramón Ortega MD [address] [place] [address] , [address] [place] [address] PCP - General Medical Oncology 01/11/23
--- OUTSIDE RECORDS SUMMARY | 2024-12-28 07:09 | XMS_ITS | Clinical Summary ---
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 Mandible pain [...] need f/u with urology as outpatient Dementia ([facility]) 09/06/2020 Overview (08/22/2024): July 30, 2021 Entered By: NATASHA HINKLE Comment: nsg home resident at [facility]note 3[facility] in [place]- is very supportive and prefers he have audiology and ear l[place] Hyperkalemia 09/06/2020 Overview (08/22/2024): Last Assessment & Plan: Due to OLEG. On lisinopril at home. Hyperkalemia on outpatient lab, 6. Currently 5.3 -cont to monitor -hold lisinopril Depressive disorder 03/28/2020 Overview (08/22/2024): Last Assessment & Plan: Continue Lexapro and Remeron. 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 Encounters Date Type Department Care Team Description 12/26/2024 11:30 AM EDT Office Visit [facility] [address] [place] [address] Darian Lu DMD 11/07/2024 8:30 AM EDT Office Visit [facility] [address] [place] [address] Darian Lind DMD from Last 3 Months Social History [...] Prophylaxis 11/10/2022 05/12/2022 COVID-19 Vaccine ( season) 2024 02/07/2023, 09/17/2022, 12/14/2021, Additional history exists Influenza Vaccine (#1) 2024 , 12/30/2022, 12/30/2021, Additional history exists Dental Oral Exam 02/23/2025 08/22/2024, 04/2023, 07/07/2022 Tobacco Screening 12/26/2025 12/26/2024 DTaP/Tdap/Td Vaccines (3 - Td or Tdap) [...] Associated Diagnosis Comments DENTURE ADJUSTMENT Routine 12/26/2024 11 :30 AM EDT DENTURE ADJUSTMENT Routine 11/07/2024 8:30 AM EDT PERIODIC ORAL EVALUATION - ESTABLISHED PATIENT Routine 08/22/2024 9:15 AM EDT PROPHYLAXIS - ADULT Routine 05/12/2022 3:00 PM EST from Last 3 Months or Most Recently Relevant to Health Maintenance
[2024-12-28 07:43] LABS: Hematocrit 35.5 % (42.0-52.0); Hemoglobin 12.4 g/dl (14.0-18.0); Mean Corpuscular HGB Conc 34.9 g/dl (31.0-36.0); Mean Corpuscular Hemoglobin 33.1 pg (27.0-33.0); Mean Corpuscular Volume 94.7 fL (80.0-98.0); NRBC Abs Auto 0.000 X10*3/uL (0.0-0.012); NRBC Pct Auto 0.0 /100WBC (0.0-0.2); Red Blood Count 3.75 X10*6/uL (4.60-5.80); White Blood Count 10.0 X10*3/uL (4.8-10.8)
[2024-12-28 08:04] LABS: Alanine Aminotransferase 17 U/L (0-40); Albumin Level 3.8 g/dL (3.5-5.0); Alkaline Phosphatase 31 U/L (39-117); Anion Gap 11 (12-20); Aspartate Amino Transferase 23 U/L (5-37); Blood Urea Nitrogen 25 mg/dL (9-16); Calcium 8.8 mg/dL (8.4-10.2); Carbon Dioxide 27 mmol/L (22-29); Chloride 109 mmol/L (96-108); Cholesterol 108 mg/dL (<200); Estimated Glomerular Filt Rate 51; HDL Cholesterol 36 mg/dL (>40); Potassium 3.6 mmol/L (3.3-5.1); Sodium 143 mmol/L (135-145); Total Protein 6.3 g/dL (6.5-8.0); Triglycerides 85 mg/dL (<150)
[2024-12-28 08:22] LABS: Platelet Count 99 X10*3/uL (160-400)
[2024-12-28 09:22] LABS: Vitamin B12 1182 pg/mL (200-900)
== END 2024-12-28 07:06 | disposition home or self-care (01) ==
LOC: HO.HSH3E 07:05
PROVIDERS: Nurse Practitioner; Visit Provider Nurse Practitioner Acute Care
DX: I12.9 Hypertensive chronic kidney disease with stage 1 through stage 4 chronic kidney disease, or unspecified chronic kidney disease (principal); N18.9 Chronic kidney disease, unspecified
CPT/HCPCS: 36415; 80053; 80061; 82306; 82607; 85027

== ENCOUNTER 2025-01-04 05:45 | Outpatient (REF) | payer MEDICARE, SELFPAY ==
--- OUTSIDE RECORDS SUMMARY | 2025-01-04 05:49 | XMS_ITS | Data Portability ---
Author Organization [facility], Main Office Address [address] [place] [address] Care Team Providers Care Retirement Manager Name Role Phone [facility] OTHER FRANCIS LUNA Primary Care Provider [...] Time Vascular dementia with behavior al disturba [facility] [id number] 9104 Active 2020 JESS Burden [address], [address], [place], [address], [facility] 12:48:00 Sleep terror disorder 80943813 Active 2020 JESS Burden [address], [place], [address], [facility] 12:48:15 Hearing loss 10235406 Active 2020 JESS Burden [address], [place], [address], [facility] 12:48:38 Acute posthemo rrhagic anemia 267257250 Active 2020 JESS Burden [address], [place], [address], [place] [facility] 1 12:55:55 Fracture of neck of femur 9959468 Active 2020 JESS Burden [address], [place], [address], [facility] 1 12:56:10 Chronic kidney disease stage 2 590908333 Completed 202012/01/2020 Removal Reason: diagosis revised CHUY ZIMMERMAN PA-C [address], [place], [address], [facility] [employer] 1 14:47:13 Hyperten sive disorder 93572839 Active 2020 JESS Burden [address], [place], [address], [facility] 1 12:56:54 Recurren t falls 021537710 Active 2020 JESS Burden [address], [place], [address], [facility] 1 13:15:10 Mixed hyperlip idemia 874962486 Active 2020 JESS Burden [address], [place], [address], [facility] 1 13:23:50 Hypoalbu minemia 068896190 Active 2020 Esvin Curriein null, [facility] 1 11:02:32 Atherosc lerosis of coronary artery without angina pectoris 93826241820 4103 Active 2020 Esvin Curriein null, [facility] [employer] [facility] 1 11:02:35 Impaired cognitio n 506708696 Active 2020 Esvin Curriein null, [facility] [employer] [facility] 1 11:02:37 Edema 383366632 Active 2020 Esvin Curriein null, [facility] [employer] [facility] 1 11:02:56 Glaucoma 39557637 Active 2020 Esvin Curriein null, [facility] [employer] [facility] 1 11:04:42 Mild major depressi on 67147507 Active 2020 Esvin Slater null, [facility] 1 11:05:39 Cobalami n deficien cy 764159874 Active 2020 Esvin Slater null, [facility] 1 11:06:28 Vitamin D deficien cy 66786138 Active 2020 Esvin Curriein null, [facility] 1 11:06:40 Dementia 91206555 Active 2020 Esvin Curriein null, [facility] 1 10:38:31 Age related macular degenera tion 234473239 Active 2020 Esvin Curriein null, [facility] 1 10:39:14 Retentio n of urine 111245281 Active 2020 Esvin Slater null, [facility] 1 09:14:20 Coronary atherosc lerosis 997544809 Active 2020 Esvin Slater null, [facility] 1 19:52:59 SARS-CoV -2 Active 2021 Beatriz Cleaning NP [address], [address], [place], [address], [facility] 2 15:12:59 Impacted cerumen in left ear 64598626371 78960 Active 2021 Beatriz Cleaning NP [address], [address], [place], [address], [facility] 2 15:30:09 Problem Notes None recorded. Medical Equipment None Reported. Allergies Allergen ID Allergen Name Allergen Category Reaction Reaction Severity Criticality Documentation Date Start Date Code Code System Note Provider Name and Address Organization Details Recorded Time 10931 lisinopri l medicatio n other severe Not available 09/23/2020 88410 RxNorm OELG and hyper kalem ia CHUY ZIMMERMAN PA-C [address], [address], [place], [address], [facility] 1 13:15:06 Medications Not known to be on any medication Vitals Date Recorded Body height Oxygen saturation Oxygen saturation in Arterial blood by Pulse oximetry Heart rate Respiratory rate Body temperature Systolic And Diastolic Provider Name and Address Organization Details Last Updated DateTime 2 170.18 cm 97 % 97 % 55 /min 18 /min 97.6 [degF] 112/58 mm[Hg] JESS Burden [address], [address], [place], [address], [facility] 2 15:21:10 Date Recorded Body height Body mass index (BMI) Body weight Heart rate Respiratory rate Body temperature Oxygen saturation Oxygen saturation in Arterial blood by Pulse oximetry Systolic And Diastolic Provider Name and Address Organization Details Last Updated DateTime 2 170.18 cm 31.3 kg/m2 34869.4 7 g 60 /min 18 /min 97.4 [degF] 97 % 97 % 106/52 mm[Hg] Beatriz Cleaning NP [address], [address], [place], [address], [facility] 2 12:01:42 Date Recorded Body height Body mass index (BMI) Body weight Heart rate Respiratory rate Body temperature Oxygen saturation Oxygen saturation in Arterial blood by Pulse oximetry Systolic And Diastolic Provider Name and Address Organization Details Last Updated DateTime 2 170.18 cm 31.3 kg/m2 20962.4 7 g 48 /min 18 /min 97.2 [degF] 96 % 96 % 129/59 mm[Hg] Beatriz Cleaning NP [address], [address], [place], [address], [facility] 2 14:29:20 Date Recorded Body height Body temperature Oxygen saturation Oxygen saturation in Arterial blood by Pulse oximetry Heart rate Systolic And Diastolic Provider Name and Address Organization Details Last Updated DateTime 2 170.18 cm 97.8 [degF] 96 % 96 % 64 /min 106/63 mm[Hg] Deya Krishnan MD [address], [address], [place], [address], [facility] 2 06:29:20 Date Recorded Body height Body mass index (BMI) Body weight Heart rate Respiratory rate Body temperature Oxygen saturation Oxygen saturation in Arterial blood by Pulse oximetry Systolic And Diastolic Provider Name and Address Organization Details Last Updated DateTime 2 170.18 cm 31.2 kg/m2 26476.8 8 g 67 /min 18 /min 97.2 [degF] 96 % 96 % 142/72 mm[Hg] Beatriz Cleaning NP [address], [address], [place], [address], [facility] 2 12:24:01 Social History Question Answer Notes LastModified by [employer] Details LastModified Time Tobacco Smoking Status Former Smoker JESS Burden [address], [address], [place], [address], [facility] 07/10/2020 12:45:29 Do You Have An Advance Directive? Yes DNR, DNI, Transfer To Hospital, No Dialysis, No Artificial Nutrition [email or web address] Information not available 07/10/2020 What Is Your Code Status? DNR/DNI [email or web address] Information not available 12/01/2020 Legal Guardian? No [email or web address] Information not available 12/01/2020 Do You Have A Medical Power Of Visual Coordinator? Yes HCP Invoked Information not available 07/10/2020 What Was The Date Of Your Most Recent Tobacco Screening? 11/28/2020 [email or web address] Information not available 12/01/2020 How Much Tobacco Do You Smoke? 1 PPD [email or web address] Information not available 07/10/2020 Has Tobacco Cessation Counseling Been Provided? No N/A [email or web address] Information not available 12/01/2020 How Many Years Have You Smoked Tobacco? 20 [email or web address] Information not available 07/10/2020 Sex: Unknown Functional Status Question Answer Note LastModified by [employer] Details LastModified Time Do you or have you ever used any other forms of tobacco or nicotine? No [email or web address] Information not available 12/01/2020 What is your level of alcohol consumption? None Hx heavy: 1 bottle of wine per day; not drinking since Information not available 12/01/2020 Do you or have you ever used smokeless tobacco? Never used smokeless tobacco [email or web address] Information not available 07/10/2020 Do you or have you ever used e-cigarettes or vape? Never used electronic cigarettes [email or web address] Information not available 07/10/2020 Mental Status None recorded. Family History Nothing Reported. Medical History No medical history recorded. Immunizations Vaccine Type Date Status Note Provider Nam e and Address Organization Details Recorded Time COVID-19, mRNA, LNP-S, PF, 30 mcg/0.3 mL dose 05/08/2020 completed CHUY ZIMMERMAN PA-C [address] [facility] [address], [place], [address], [facility] 12/01/2020 14:48:34 COVID-19, mRNA, LNP-S, PF, 30 mcg/0.3 mL dose 06/05/2020 completed CHUY ZIMMERMAN PA-C [address], [facility] [address], [place], [address], [facility] 12/01/2020 14:48:40 Past Encounters Encounter ID Performer Location Encounter Start Date Encounter Closed Date Diagnosis/Indication Diagnosis SNOMED-CT Code Diagnosis ICD10 Code Diagnosis IMO Codes Diagnosis Note [id number] JESS Burden AT [address] [address] 07/10/2020 12:35:42 07/16/2020 09:44:34 Fracture of neck of femur 9233499 S72.001D see hpi mechanical fall at home, [facility] at [facility] lovenox 40 mg sq qd till 08/20 oxycodone 5 mg q 6 hrs prn monitor right hip incisions f/u with ortho Acute post hemorrhagic anemia 060000018 D62 no labs in chart or dc summary available monitor cbc weekly - pending today Chronic ki dney disease stage 2 322080796 N18.2 limited paperwork from [facility] states OLEG on CKD - appears that pt's lisinopril was held at hospital avoid nephrotoxi c meds as able monitor cmp this week then bmp weekly - pending today Hypertensive disorder 38 335110 I10 bp mildly elevated lisinopril 20 mg qd - on hold til 07/12 metoprolol 25 mg bid asa 81 mg qd monitor bp and adjust meds prn 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 944380 F51.4 known hx of per lexapro 20 mg qd remeron 7.5 mg qhs gabapentin 300 mg bid per pt will wake up at night screaming psych to follow Vascular d ementia with behavioral disturbance 9229781653 65927 F01.51 per pt is forgetful will wait till pt is settled into unit to do SLUMS supportive care expect decline Hearing loss 26199616 H9 1.93 known hx of supportive care Mixed hyperlipidemia 267 626147 E78.2 zetia 10 mg qd lipitor 80 mg qhs check lipid panel once pt is LTC Recurrent falls 26908155 2 R29.6 PT OT for conditioni ng and mobility monitor for fall risk didn't think that his drinking had much to do with his falls, says they usually happened in the morning and he did not start drinking till 11 am [id number] ESVIN SLATER MD [place] AT [address] [address] 07/11/2020 10:34:37 07/16/2020 10:27:03 Fracture of neck of femur 3610150 S72.001D continue with therapy, pain rx, DVT prophyllax is Recurrent falls 47779509 2 R29.6 will taper off gabapentin as this may predispose to falls, also reduce lexapro to 10 for same reason Macrocytic anemia 251935 05 D53.9 unclear if due to blood loss from recent surgery or other. Will give iron for a month, check B12, folate and MMA Hypertensive disorder 38 823132 I10 controlled with current rx. Will consolidat e metoprolol into a single daily dose Mixed hyperlipidemia 267 382834 E78.2 continue current rx Impaired cognition 01018 6002 R41.89 has mild to moderate impairment of cognition which is chronic. Accompanyi ng visual hallucinat ions suggestive of Lewy body dementia. can no longer care for him at home. senior living care planned Atheroscle rosis of coronary artery without angina pectoris 8250315065 03163 I25.10 continue beta priscilla, ASA, statin Hypoalbuminemia 82820638 4 E88.09 presumed due to renal disease and/or poor nutrition and/or alcoholic liver disease Alcohol dependence 37795 003 F10.20 chronic, excessive use of alcohol according to . Last drink a week ago so no risk of withdrawal at this time. Continue abstinence . Has mild liver enzyme abnormalit ies which should be rechecked in a month or so Edema 561266321 R60.9 due to hypoalbumi nemia and recent surgery. No new rx needed at this time Glaucoma 10258189 H40.9 continue current rx Age relate d macular degeneration 556327232 H35.30 continue current supplement s Mild major depression 87 066665 F32.0 continue remeron, continue lexapro after dose reduction as above Cobalamin deficiency 190 475310 E53.8 continue rx Vitamin D deficiency 347 23790 E55.9 continue rx [id number] JESS Burden AT [address] [address] 07/15/2020 13:48:11 07/17/2020 12:55:19 Fracture of neck of femur 0935928 S72.001D mechanical fall at home, ORIF at [facility] lovenox 40 mg sq qd till 08/20 oxycodone 5 mg q 6 hrs prn monitor right hip incisions f/u with ortho Acute post hemorrhagic anemia 575789059 D62 now on iron check cbc weekly Chronic ki dney disease stage 2 462601871 N18.2 pt's lisinopril was held at hospital - resumed on 07/12 avoid nephrotoxi c meds as able monitor cmp this week then bmp weekly - pending today Hypertensive disorder 38 443238 I10 bp mildly elevated lisinopril 20 mg qd - on hold til 07/12 metoprolol 25 mg bid asa 81 mg qd monitor bp and adjust meds prn 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 545777 F51.4 known hx of per lexapro 10 mg qd remeron 7.5 mg qhs gabapentin taper to discontinu e per pt will wake up at night screaming psych to follow Vascular d ementia with behavioral disturbance 9036083988 59227 F01.51 per pt is forgetful will wait till pt is settled into unit to do SLUMS supportive care expect decline Hearing loss 69194701 H9 1.93 known hx of supportive care Mixed hyperlipidemia 267 313940 E78.2 zetia 10 mg qd lipitor 80 mg qhs check lipid panel once pt is LTC Recurrent falls 70775703 2 R29.6 continue PT OT monitor for fall risk didn't think that his drinking had much to do with his falls, says they usually happened in the morning and he did not start drinking till 11 am [id number] JESS Burden AT [address] [address] 07/18/2020 16:13:42 07/21/2020 16:23:47 Fracture of neck of femur 6034322 S72.001D mechanical fall at home, ORIF at [facility] lovenox 40 mg sq qd till 08/20 oxycodone 5 mg q 6 hrs prn monitor right hip incisions f/u with ortho in 4 weeks WBAT now Acute post hemorrhagic anemia 275400098 D62 now on iron and folic acid check cbc weekly Chronic ki dney disease stage 2 537302679 N18.2 pt's lisinopril was held at hospital - resumed on 07/12 avoid nephrotoxi c meds as able monitor renal function Hypertensive disorder 38 975659 I10 bp normal for his age lisinopril 20 mg qd 7 metoprolol 50 mg qd asa 81 mg qd monitor bp and adjust meds prn 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 952010 F51.4 known hx of per lexapro 10 mg qd remeron 7.5 mg qhs gabapentin off today per pt will wake up at night screaming psych to follow Vascular d ementia with behavioral disturbance 7548168292 18983 F01.51 per pt is forgetful will wait till pt is settled into unit to do SLUMS supportive care expect decline Hearing loss 79226909 H9 1.93 known hx of supportive care Mixed hyperlipidemia 267 082274 E78.2 zetia 10 mg qd lipitor 80 mg qhs check lipid panel once pt is LT [id number] JESS Burden AT [address] [address] 07/22/2020 15:59:01 07/24/2020 11:51:12 Fracture of neck of femur 6343029 S72.001D lovenox 40 mg sq qd till 08/20 oxycodone 5 mg q 6 hrs prn monitor right hip incisions f/u with ortho in 3 weeks WBAT now Acute post hemorrhagic anemia 690664026 D62 now on iron and folic acid check cbc weekly Chronic ki dney disease stage 2 121212067 N18.2 pt's lisinopril was held at hospital - resumed on 07/12 avoid nephrotoxi c meds as able monitor renal function Hypertensive disorder 38 388771 I10 bp normal for his age lisinopril 20 mg qd metoprolol 50 mg qd asa 81 mg qd monitor bp and adjust meds prn 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 425911 F51.4 known hx of per lexapro 10 mg qd remeron 7.5 mg qhs per pt will wake up at night screaming psych prn Vascular d ementia with behavioral disturbance 9248175144 14977 F01.51 per pt is forgetful will wait till pt is settled into unit to do SLUMS supportive care expect decline Mixed hyperlipidemia 267 474960 E78.2 zetia 10 mg qd lipitor 80 mg qhs check lipid panel once pt is LTC [id number] JESS Burden AT [address] [address] 07/24/2020 16:22:49 07/28/2020 15:46:18 Fracture of neck of femur 4187897 S72.001D lovenox 40 mg sq qd till 08/20 oxycodone 5 mg q 6 hrs prn monitor right hip incisions f/u with ortho in 3 weeks WBAT now moderate edema in RLE 2/2 sitting in wheelchair Acute post hemorrhagic anemia 501350802 D62 now on iron and folic acid check cbc weekly Chronic ki dney disease stage 2 662965607 N18.2 pt's lisinopril was held at hospital - resumed on 07/12 avoid nephrotoxi c meds as able monitor renal function Hypertensive disorder 38 691876 I10 bp normal for his age lisinopril 20 mg qd metoprolol 50 mg qd asa 81 mg qd monitor bp and adjust meds prn 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 461738 F51.4 known hx of per lexapro 10 mg qd remeron 7.5 mg qhs psych prn Vascular d ementia with behavioral disturbance 2706500997 12062 F01.51 supportive care expect decline [id number] JESS Burden AT [address] [address] 07/29/2020 14:51:03 08/01/2020 11:53:31 Fracture of neck of femur 5995471 S72.001D continue PT OT lovenox 40 mg sq qd till 08/20 oxycodone 5 mg q 6 hrs prn monitor right hip incisions f/u with ortho in 2 weeks WBAT now Acute post hemorrhagic anemia 766041213 D62 now on iron and folic acid check cbc weekly Chronic ki dney disease stage 2 295253297 N18.2 creat 1.1 on 07/24 - stable pt's lisinopril was held at hospital - resumed on 07/12 avoid nephrotoxi c meds as able monitor renal function Hypertensive disorder 38 269705 I10 bp normal for his age lisinopril 20 mg qd metoprolol 50 mg qd asa 81 mg qd monitor bp and adjust meds prn 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 690466 F51.4 known hx of per lexapro 10 mg qd remeron 7.5 mg qhs psych prn Vascular d ementia with behavioral disturbance 7477087146 83499 F01.51 supportive care expect decline [id number] JESS Burden AT [address] [address] 08/01/2020 13:45:56 08/04/2020 14:48:25 Fracture of neck of femur 0632251 S72.001D continue lovenox 40 mg sq qd till 08/20 oxycodone 5 mg q 6 hrs prn monitor right hip incisions f/u with ortho in 2 weeks WBAT now Acute post hemorrhagic anemia 829377160 D62 now on iron and folic acid check cbc weekly Chronic ki dney disease stage 2 434279098 N18.2 creat 1.1 on 07/24 - stable pt's lisinopril was held at hospital - resumed on 07/12 avoid nephrotoxi c meds as able monitor renal function Hypertensive disorder 38 288823 I10 bp normal for his age lisinopril 20 mg qd metoprolol 50 mg qd asa 81 mg qd monitor bp and adjust meds prn 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 027355 F51.4 known hx of per lexapro 10 mg qd remeron 7.5 mg qhs psych prn Vascular d ementia with behavioral disturbance 2758429284 93974 F01.51 supportive care expect decline pt will stay LTC Acute diarrhea 318527083 R19.7 will send out stool for c diff monitor for worsening stools [id number] MD [place] AT [address] [address] 08/04/2020 11:20:20 08/06/2020 14:15:38 Edema 866441944 R60.9 has chronic bilateral edema but much more so on right. Will get venous US of RLE to r/o DVT. Until result available will up lovenox dose to therapeuti c level. Fracture o f neck of femur 7607144 S72.001D will stop oxycodone now [id number] JESS Burden AT [address] [address] 08/07/2020 13:17:35 08/08/2020 15:38:28 Fracture of neck of femur 7712767 S72.001D decrease back to lovenox 40 mg sq qd till 08/20 tylenol prn monitor right hip incisions f/u with ortho WBAT now pt plateaued with rehab, off rehab RLE edema 2/2 femur fracture and repair no treatment at this time for Nguyễn's cyst Acute post hemorrhagic anemia 146020738 D62 now on iron and folic acid hgb slowly improving check cbc weekly Chronic ki dney disease stage 2 575579386 N18.2 creat 0.9 on 08/07 - stable pt's lisinopril was held at hospital - resumed on 07/12 avoid nephrotoxi c meds as able monitor renal function Hypertensive disorder 38 295807 I10 bp normal for his age lisinopril 20 mg qd metoprolol 50 mg qd asa 81 mg qd monitor bp and adjust meds prn 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 846848 F51.4 known hx of per lexapro 10 mg qd remeron 7.5 mg qhs psych prn Vascular d ementia with behavioral disturbance 7780213384 31040 F01.51 supportive care expect decline pt will stay LTC [id number] MD [place] AT [address] [address] 08/26/2020 10:27:09 08/28/2020 15:48:27 Macrocytic anemia 12290922 D53.9 found to be folate deficient in addition to previous B12 deficiency , now on both supplement s. Vitamin D deficiency 347 81945 E55.9 order read 250 mcg per day which is 10,000 units, reduced to 1000 units per day Mixed hyperlipidemia 267 916688 E78.2 continue current rx Glaucoma 88461443 H40.9 continue current rx Atheroscle rosis of coronary artery without angina pectoris 4701447222 57489 I25.10 continue beta priscilla, ASA, statin, no evidence of ischemia. Has mild edema which is stable and not causing any symptoms so will not treat Mild major depression 87 244535 F32.0 continue remeron and lexapro Hypertensive disorder 38 020551 I10 controlled with current rx. Dementia 97565166 F03.90 stable at this time, slow progressio n anticipate d Age relate d macular degeneration 728417440 H35.30 continue current supplement [id number] JESS Burden AT [address] [address] 09/04/2020 14:23:28 09/09/2020 10:33:48 Chronic kidney disease stage 2 157623574 N18.2 will dc lisinopril recheck BMP on 09/05 and 09/08 Hypertensive disorder 38 131990 I10 bp normal for his age dc lisinopril as above metoprolol 50 mg qd asa 81 mg qd monitor bp and adjust med prn [id number] JESS Burden AT [address] [address] 09/09/2020 14:10:22 09/11/2020 15:27:14 Fracture of neck of femur 5535462 S72.001D healed f/u with ortho prn Acute post hemorrhagic anemia 979458331 D62 remains on folic acid 1 mg qd hgb stable btwn 9-10 monitor cbc Chronic ki dney disease stage 2 899823636 N18.2 see above avoid nephrotoxi c meds as able monitor renal function Hypertensive disorder 38 924472 I10 bp normal lisinopril on hold re-eval in 2 days metoprolol xl 50 mg qd asa 81 mg qd monitor bp and adjust meds prn Vascular d ementia with behavioral disturbance 8453602982 79415 F01.51 mood stable remeron 7.5 mg qhs lexapro 10 mg qd supportive care expect decline monitor mood, behaviors psych prn Acute kidney injury 1466 9001 N17.9 see hpi mcpherson placed in hospital recommend voiding trial in one week lisinopril on hold, re-eval in 2 days creat 1.5 on 09/09 will need f/u with DR Miguel barragan in [place] in one week pt has hx of bladder cancer Atheroscle rosis of coronary artery without angina pectoris 3926609597 49867 I25.10 atorvastat in 80 mg qhs asa 81 mg qd zetia 10 mg qd monitor for chest pain, sob [id number] JESS Burden AT [address] [address] 09/11/2020 13:18:36 09/16/2020 10:23:21 Acute kidney injury 14476500 N17.9 mcpherson placed in hospital recommend voiding trial in one week lisinopril on hold - would not resume as BP is low normal creat 1.2 on 09/10 f/u with DR Miguel barragan in [place] on 10/22 pt has hx of bladder cancer Fracture o f neck of femur 6667239 S72.001D healed f/u with ortho prn Acute post hemorrhagic anemia 879538294 D62 remains on folic acid 1 mg qd hgb stable btwn 9-10, though slightly lower on 09/10 at 8.9 continue to monitor cbc Chronic ki dney disease stage 2 016491117 N18.2 see above avoid nephrotoxi c meds as able monitor renal function Hypertensive disorder 38 097857 I10 bp low normal do not resume lisinopril metoprolol xl 50 mg qd asa 81 mg qd monitor bp and adjust meds prn Vascular d ementia with behavioral disturbance [id number] 79148 F01.51 SLUMS 27/30 states normal but pt does have issues with insight and while essentiall y normal SLUMS pt did not understand the workings of his mcpherson, thought he was at [facility] now, has issues with insight mood stable remeron 7.5 mg qhs lexapro 10 mg qd supportive care expect decline monitor mood, behaviors psych prn Atheroscle rosis of coronary artery without angina pectoris [id number] 94932 I25.10 atorvastat in 80 mg qhs asa 81 mg qd zetia 10 mg qd monitor for chest pain, sob [id number] MD [facility] CASTE[facility] AT [address] [address] 09/16/2020 08:26:07 09/18/2020 12:12:41 Retention of urine 807405884 R33.9 presumed due to BPH, has been on flomax for about 10 days, time for a voiding trial. Will stop mcpherson today, reinsert if unable to void in 8 hours or if PVR > 300 cc in next few days. Chronic thong dney disease stage 2 883132333 N18.2 at his baseline Hypoalbuminemia 86008981 4 E88.09 chronic and stable Hypertensive disorder 38 762077 I10 controlled with current rx, will not resume lisinopril at this time [id number] ANIL WARD AT [address] [address] 09/17/2020 12:58:47 10/17/2020 14:56:26 Retention of urine 908280090 R33.9 --1st 2 PVRs s/p mcpherson removal acceptable --cont to monitor PVRs; if > 300 cc, reinsert mcpherson--con t Flomax 0.4mg po qhs--outpa tient f/u w/ urology 10/22/20 Macrocytic anemia 978086 05 D53.9 --H&H down minimally vs last week--poss ibly multifacto rial given pmhx--cont B12 supps for hx B12 defic & macrocytic anemia--co nt to monitor; if persists or worsens, consider stool guaiacs & additional labs Leukocytosis 256786927 D 72.829 --mild; no fever, exam neg, ROS neg--cont to monitor clinically Chronic ki dney disease stage 2 974913859 N18.2 --Cr stable at 1.2--cont routine monitoring --avoid nephrotoxi c meds [id number] ANIL RM AT [address] [address] 5 09/23/2020 13:13:42 10/01/2020 11:02:47 Gvxrx-tn-qelmluk renal failure 058648392 N17.9 Hx obstructiv e uropathyBl adder scan [...] impair renal functionFo llow labs Macrocytic anemia 253548 05 D53.9 Significan t dropNo cardiac/re spiratory complaints Stool guaiac x 3Continue ASA for nowNo evidence of bleeding into site of hip fractured/ c B12 since level very therapeuti c and MMA negativeFo llow labs Acute hyponatremia 33358 02 E87.1 significan t drop over past 5 daysNot on any meds that typically affect serum Daniela evidence of volume overload on exam so may be hypovolemi c hyponatrem ia and may be giving IVF if not retaining (see above) Vitamin D deficiency 347 17135 E55.9 Check level given renal impairment ; may need or be able to d/c [id number] ANIL RM AT [address] [address] 5 09/24/2020 12:47:44 10/01/2020 11:13:29 Acute heart failure 20770343 I50.9 Probably iatrogenic from IVF although barely got more than 1 literWeigh t up 21 lbs since earlier this month although unk if gradual or acutePt is dyspneic although with clear lungsHeart M is newLasix 20 mg po x 1Daily weights x 1 week then weeklyCons ider repeat echo Urinary tr act obstruction 7870409 N13.9 Nurse just now bladder scanned pt for 999 ml (scanner does not go higher than this)She straight cath'd him for 900 ml then 700 ml and he was still passing urineFoley catheter to gravityInc rease Flomax to 0.8 mg po qhs - start tonightRen al and bladder u/s done during recent hospitaliz at[facility] Miguel barragan [phone] for cystoscopy due to hx bladder caU/A pend and will be reviewed when available as acute UTI can also cause retention Acute hyponatremia 90348 02 E87.1 Serum osm, Urine osm/Na/Cr pendProbab ly related to intrinsic AKIdivalen ts pend for tomorrow Acute post hemorrhagic anemia 122869820 D62 Stool guaiacs pendCBC pend for am although may be hemodilute d from IVF Vitamin D deficiency 347 11996 E55.9 Level pend and will be reviewed when available [id number] ANIL RM AT [address] [address] 09/25/2020 10:54:42 10/01/2020 11:24:41 Acute heart failure 81064375 I50.9 Weight down drasticall y overnight although [...] drawn this am Urinary tr act obstruction 8070114 N13.[address] and functionin gFlomax was increased as of last nightHas appointmen t with urology later this monthFaile d voiding trialGiven ongoing retention and hx bladder ca with recommenda tion for cystoscopy , will not reattempt voiding trial between now and urology f/u Acute hyponatremia 40475 02 E87.1 Serum Na improvedFo llow divalents Acute post hemorrhagic anemia 240738558 D62 Stool guaiacs pendRemain s on ASAH&H essentiall y unchanged last few daysFollow labsCheck Fe studies and hemolysis labs Vitamin D deficiency 347 31651 E55.9 Suprathera peutic leveld/c supplement Acute-on-c hronic renal failure 202335182 N17.9 Improved with insertion of Mcpherson and brief IVFCheck MgFollow labs [id number] ANIL RM AT [address] [address] 09/26/2020 10:10:32 10/18/2020 03:48:37 Hypomagnesemia 997223310 E83.42 Mag oxide 400 mg po dailyMg level 1 week Anemia in chronic kidney disease 595027096 D63.1 hemolysis labs negative so far -- await rest of resultseut hyroidanem ia likely related to CKDfollow CBC [id number] ANIL RM AT [address] [address] 5 09/30/2020 11:17:42 10/17/2020 15:46:42 Lower urinary tract obstructive syndrome 13885353 N13.9 resolved with FoleyConti nue Mcpherson until seen by uroContinu e Flomax 0.8 mg po qhsUrology f/u later this month Acute-on-c hronic renal failure 900443630 N17.9 resolved with FoleyRenal labs baseline Acute post hemorrhagic anemia 037321601 D62 Stool guaiacs pendH&H improvedre ameya on daily ASAhemolyt ic labs negative Congestive heart failure 07603021 I50.9 EKG and Echo unrevealin gWeight overall down since Mcpherson insertionD yspnea resolvedEd elina improvedOn ly had a 1-time dose of LasixMay have all been related to obstructiv e uropathyFo llow clinically No indication for diuretic therapy at this time [id number] ANIL RM AT [address] [address] 10/02/2020 14:32:39 10/17/2020 16:00:00 Anemia of chronic renal failure 33612910 D63.1 H&H down from prior but overall stableAwai t rest of stool guaiacsFol low CBC Secondary hypomagnesemia 067448958 E83.42 level therapeuti c on supplement no changes needed at this time Acute-on-c hronic renal failure 060190649 N17.9 resolved with FoleyLabs stableNo changes Weight loss 01309911 R63 .4 Had only 1 dose Lasix after iatrogenic CHF from IVFNot sure if weights closer to admit were validFollo w clinically [id number] ANIL RM AT [address] [address] 10/06/2020 15:01:18 10/21/2020 03:48:24 Anemia in chronic kidney disease 541538554 D63.1 stool guaiacs negcontinu e ASAFollow labs [id number] ANIL RM AT [address] [address] 10/10/2020 19:02:32 10/30/2020 03:48:34 Chronic anemia 426508427 D64.9 suspect due to CKDGuaiacs negativeIm proved and stableNo change in plansDecre ase frequency of monitoring labs Chronic ki dney disease stage 3 365859583 N18.30 improved and baselineAK I resolved with treatment of obstructiv e uropathyDe crease frequency of lab monitoring [id number] ANLI RM AT [address] [address] 10/16/2020 21:16:04 10/22/2020 03:47:58 Eafqk-tr-nnmgxhm renal failure 064504321 N17.9 resolved with FoleyLabs stable - clarify lab monitoring has been adjusted to less frequent [id number] ANIL RM AT [address] [address] 10/22/2020 20:38:45 12/11/2020 03:48:27 Retention of urine 091364604 R33.9 Continue indwelling FoleyClari fy with urologist if Flomax should be continued or if there is a plan for future voiding trial [id number] MD [facility] AT [address] [address] 5 10/28/2020 13:17:00 10/31/2020 13:07:51 Hypertensive disorder 85104127 I10 controlled with current rx, Coronary atherosclerosis 266894176 I25.10 no evidence of failure or ischemia at this time 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 continue remeron and lexapro Retention of urine 68447 4002 R33.9 presumed due to BPH, treated with flomax but failed voiding trial and urology recommends chronic mcpherson, will stop flomax Dementia 49379821 F03.90 stable at this time, slow progressio n anticipate d [id number] ANIL RM AT [address] [address] 5 11/28/2020 13:08:51 12/03/2020 12:21:01 Benign prostatic hyperplasia with outflow obstruction 884559871 N40.1 Chronic FoleyPrevi ously failed voiding trialsSeen by urologistn o plan for future voiding trialsMoni tor and f/u prn Chronic ki dney disease stage 3 177409013 N18.30 StableCaut ion with nephrotoxi c meds Dyslipidemia 393811433 E 78.5 Continue Lipitor 80 mg po qhsHx CVA and CAD -- no change in dose at this time [id number] MD [facility] AT [address] [address] 12/24/2020 14:45:19 12/26/2020 10:55:08 Atherosclerosis of coronary artery without angina pectoris 3731461025 00032 I25.10 continue beta priscilla, ASA, statin, no evidence of ischemia or failure Dementia 14482178 F03.90 stable at this time, slow progressio n anticipate d Glaucoma 83715223 H40.9 continue current rx Hypertensive disorder 38 978501 I10 last reading slightly elevated but at gaol 90% of recent reading so will continue with current rx, Mild major depression 87 753157 F32.0 doing well on remeron and lexapro Retention of urine 91045 4002 R33.9 presumed due to BPH, treated with flomax but failed voiding trial and urology recommends chronic mcpherson [id number] JESS Burden AT [address] [address] 02/09/2021 15:12:57 02/11/2021 12:52:38 Atherosclerosis of coronary artery without angina pectoris 8434473873 85622 I25.10 atorvastat in 80 mg qhs asa 81 mg qd zetia 10 mg qd monitor for chest pain, sob Dementia 90620946 F01.50 supportive careexpect declineno treatment Mild major depression 87 010647 F32.0 mood stablelexa pro 5 mg qdremeron 7.5 mg qhsmonitor moodpsych prn Hypertensive disorder 38 429255 I10 sbp readings 120s-150s metoprolol xl 50 mg qd asa 81 mg qd monitor bp and adjust meds prn [id number] MD [facility] AT [address] [address] 5 03/16/2021 09:15:33 03/19/2021 11:35:27 Atherosclerosis of coronary artery without angina pectoris 1462183591 73291 I25.10 continue beta priscilla, ASA, statin, no evidence of ischemia or failure Cobalamin deficiency 190 588904 E53.8 continue rx with oral B12 Dementia 35792597 F01.50 stable at this time, slow progressio n anticipate d Glaucoma 84425177 H40.9 continue current rx Hypertensive disorder 38 865095 I10 bp elevated 40% of recent readings, will up metoprolol to 100 mg daily Mild major depression 87 368556 F32.0 doing well on remeron and lexapro [id number] JESS Burden AT [address] [address] 5 04/28/2021 14:09:23 05/01/2021 12:11:28 Atherosclerosis of coronary artery without angina pectoris 6781139937 75555 I25.10 atorvastat in 80 mg qhs asa 81 mg qd zetia 10 mg qd monitor for chest pain, soblipid panel, CMP, CBC on 04/29 Dementia 17700912 F01.50 supportive careexpect declineno treatment Mild major depression 87 733704 F32.0 mood stablelexa pro 7.5 mg qdremeron 7.5 mg qhsmonitor moodpsych prn Hypertensive disorder 38 763600 I10 bp slightly elevated, no change metoprolol xl 100 mg qd asa 81 mg qd monitor bp and adjust meds prn Retention of urine 15437 4002 R33.9 schedule flush of mcpherson with 10 cc normal saline q Tuesday and prn discomfort will f/u with urolgist in [id number] JESS Burden AT [address] [address] 06/01/2021 13:08:44 06/03/2021 11:39:30 Dementia 69120506 F01.50 Mood stablesupp ortive careexpect declineno treatment Hypertensive disorder 38 562557 I10 BP is stableCont inue metoprolol xl 100 mg qd Continue asa 81 mg qd monitor bp and adjust meds prn Cough 69622864 R05.8 Patient c/o non-produc tive cough. Wheezing noted to bilateral lungs.Star t Albuterol 90mcg inhaler with aerochambe r - 2 puffs PO three times a day x1week and every 4 hours PRN for wheezing/S OBRobituss in - 10ml PO Q6H PRN coughmonit or for worsening sxs [id number] MD WEST Delgado AT [address] [address] 06/03/2021 07:59:26 06/09/2021 09:37:31 Dementia 72058882 F01.50 will monitor and support as neededexpe ct declinesee meds for mixed anxiety/de pressive disorder Coronary atherosclerosis 985780614 I25.10 ASA 81 mg dailyatorv astatin 80 mg dailymetop rolol ER 100 mg dailywill monitor Cobalamin deficiency 190 928635 E53.8 B12 1000 mcg dailywill monitor Hypertensive disorder 38 813209 I10 metoprolol ER 100 mg dailywill monitor 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 escitalopr am 7.5 mg dailymirta zapine 7.5 mg at hswill monitor Hyperlipidemia 08350563 E78.49 ezetimibe 10 mg dailyatorv astatin 80 mg dailywill monitor Cough 17428971 R05.1 suspect URIconside r GERD, pneumonia, pulmonary edema if persists or worsensalb uterol HFA: 2 puffs q4h prnguaifen esin liquid prnconside r CXR, short course steroids for acute bronchitis if symptoms persist [id number] ÁNGELA Camacho AT [address] [address] 06/08/2021 12:26:22 06/10/2021 11:09:03 Dementia 43489561 F01.50 monitor and support as neededexpe ct declinesee meds for mixed anxiety/de pressive disorder Mixed anxi ety and depressive disorder 425011365 F41.8 contescita lopram 7.5 mg dailymirta zapine 7.5 mg at hsmonitor Cough 62392607 R05.1 suspect URIconside r GERD, pneumonia, pulmonary edema if persists or worsenscon t albuterol HFA: 2 puffs q4h prncont guaifenesi n liquid prnCXR done this am. Awaiting results.co nsider short course steroids for acute bronchitis if symptoms persist [id number] JESS Burden [place] AT [address] [address] 5 06/15/2021 17:16:30 06/18/2021 13:25:15 Respiratory tract congestion and cough 444946770 R05.8 does not appear to be in distressco ntinue prn proventil and robitussin monitor for worsening sxs [id number] JESS Do [facility] AT [address] [address] 5 07/08/2021 13:00:08 07/15/2021 11:04:27 Dementia 83298270 F01.50 Appears mild-moder ate at baselineEx pect declinePsy ch eval prnsee meds for mixed anxiety/de pressive disorder Coronary atherosclerosis 833111526 I25.10 ASA 81 mg dailyatorv astatin 80 mg dailymetop rolol ER 100 mg dailywill monitor Cobalamin deficiency 190 017105 E53.8 B12 1000 mcg dailywill monitor Hypertensive disorder 38 206899 I10 metoprolol ER 100 mg dailyAppea rs well controlled will monitor Mixed anxi ety and depressive disorder 552021604 F41.8 escitalopr am 7.5 mg dailymirta zapine 7.5 mg at hsPsych eval prn Hyperlipidemia 45553230 E78.49 ezetimibe 10 mg dailyatorv astatin 80 mg dailywill monitor [id number] Beatriz Cleaning NP [facility] AT [address] [address] 07/13/2021 11:11:32 07/15/2021 14:24:19 Dementia 10181828 F01.50 Appears mild-moder ate at baselineEx pect declinePsy ch eval prnsee meds for mixed anxiety/de pressive disorder SARS-CoV-2 500399084 U07 .1 tested positive for covid 19 on 07/12/21sta rted on paxlovid on 07/13/21 x5 daysstart mucinex po bid prnwill get labs weekly x 2 weeksencou rage fluidsprec autions in placemonit or Impacted c erumen in left ear 0157586278 699725 H61.22 impacted cerumen to left eardebrox 4 gtts to left ear bid x 3 days and flush on day 4 with warm watermonit or [id number] JESS Burden AT [address] [address] 07/14/2021 12:42:55 07/16/2021 11:35:40 Dementia 76585639 F01.50 supportive careExpect declinemoo d stablereme pepito 7.5 mg qhslexapro 7.5 mg qdPsych prn Coronary atherosclerosis 438432124 I25.10 ASA 81 mg qdatorvast atin 80 mg qhsmetopro lol ER 100 mg qdezetmibe 10 mg qdmonitor for sob, chest pain Hypertensive disorder 38 209471 I10 BP elevated today though most readings are SBP < 150continu e metoprolol ER 100 mg qdcontinue BP QDadjust meds prn Mixed anxi ety and depressive disorder 406727004 F41.8 mood stableesci talopram 7.5 mg qdmirtazap ine 7.5 mg qhsPsych prn Hyperlipidemia 50401157 E78.49 ezetimibe 10 mg qdatorvast atin 80 mg qdLFTs and lipid panel normal in May 2021 SARS-CoV-2 652904077 U07 .1 tested positive for covid 19 on 07/12/21sta rted on paxlovid on 07/13/21 x5 daysstart mucinex po bid prnwill get labs weekly x 2 weeksmonit or for resp, gi distress, bowelsenco urage fluidsprec autions in placemonit or [id number] ÁNGELA Camacho AT [address] [address] 07/15/2021 16:12:32 07/17/2021 10:46:04 SARS-CoV-2 187388740 U07.1 tested positive for covid 19 on 07/12/21sta rted on paxlovid on 07/13/21 x5 dayscontin uemucinex po bid prnlabs weekly x 2 weeks to monitor renal function with history of akiencoura ge fluidsprec autions in placemonit or Impacted c erumen in left ear 3893848810 850548 H61.22 impacted cerumen to left eardebrox 4 gtts to left ear bid x 3 days and flush on day 4 with warm water started on r Dementia 54864041 F01.50 Appears mild-moder ate at baselineEx pect declinePsy ch eval prnsee meds for mixed anxiety/de pressive disorder [id number] Gerardo Fraire NP [place] AT [address] [address] 07/16/2021 15:25:35 07/20/2021 16:15:35 SARS-CoV-2 689101570 U07.1 tested positive for covid 19 on 07/12/21sta rted on paxlovid on 07/13/21 x5 dayscontin uemucinex po bid prnlabs weekly x 2 weeks to monitor renal function with history of akiencoura ge fluidsprec autions in placemonit or and adjust interventi ons as indicated Impacted c erumen in left ear 6984536724 377845 H61.22 impacted cerumen to left eardebrox 4 gtts to left ear bid x 3 days and flush on day 4 with warm water started on r and adjust interventi ons as indicated [id number] Beatirz Cleaning NP [place] AT [address] [address] 5 07/17/2021 14:11:19 07/21/2021 14:15:59 SARS-CoV-2 519084369 U07.1 tested positive for covid 19 on 07/12/21sta rted on paxlovid on 07/13/21 x5 dayscontin uemucinex po bid prnstart tessalon perles 100 mg po tidlabs weekly x 2 weeks to monitor renal function with history of akiencoura ge fluidsprec autions in placemonit or and adjust interventi ons as indicated Impacted c erumen in left ear 8403713349 132171 H61.22 impacted cerumen to left earspeak loudly into left ear as it is his better eardebrox 4 gtts to left ear bid x 3 days and flush on day 4 with warm water started on 07/13monito r and adjust interventi ons as indicated [id number] JESS Burden [facility] AT [address] [address] 5 07/20/2021 15:37:13 07/22/2021 11:32:23 SARS-CoV-2 618279332 U07.1 tested positive for covid 19 on 07/12/21fin ished paxlovidmu cinex po bid and q day prntessalo n perles 100 mg po tid till 07/25/21lab s weekly x 2 weeks to monitor renal function with history of akiencoura ge fluidsprec autions in placemonit or and adjust interventi ons as indicated Impacted c erumen in left ear 8082515651 565769 H61.22 pt continues with cerumen blockage in both earsrefer to ENT to flush ears [id number] Beatriz Cleaning NP [facility] AT [address] [address] 5 07/22/2021 19:17:12 07/27/2021 10:48:18 SARS-CoV-2 860199012 U07.1 tested positive for covid 19 on 07/12/21 and finished quarantine todayfinis hed paxlovidmu cinex po bid and q day prntessalo n perles 100 mg po tid till 07/25/21lab s okayencour age fluidsprec autions in placemonit or and adjust interventi ons as indicated Impacted c erumen in left ear 5436624641 091180 H61.22 pt continues with hearing decreasere terra to ENT to flush ears ([place] [facility]pt states has an appt to fix his broken hearing aidemonito r [id number] Beatriz Cleaning NP [place] AT [address] [address] 5 07/27/2021 12:31:31 07/29/2021 11:03:43 SARS-CoV-2 962852210 U07.1 resolvedte sted positive for covid 19 on 07/12/21 and finished quarantine todayfinis hed paxlovidfi nished mucinex po bid and q day prn, tessalon perles 100 mg po tid till 07/25/21 Impacted c erumen in left ear 5104184856 799874 H61.22 pt continues with hearing decrease?r efer to ENT to flush ears ([place] [facility] only getting bulb syringe flushesit is unclear if [place] or a pcpsocial work consulted to help with care as it is not clear if james garber is a specialist or pcp per wifehearin g aides fixed per wifecontin ue debrox 5 gtts to left ear twice today and then bid until july 30 then send to [place] fu [place] flush here.monit [place] [id number] ÁNGELA Camacho AT [address] [address] 5 07/31/2021 11:58:04 08/03/2021 14:03:21 Impacted cerumen in left ear 7490727505 858325 H61.22 pt hearing [place]he [place] cer[place] with hearing loss and hearing aidshad cerumen removed [place] with drill on 07/30 and hearing is improvedde brox 4 gtts to each ear bid x 3 days and flush on day 4 with warm water monthly start on 09/08/21app t to fu with Dr. Randy almaguer at [place] on 11/11/21 and needs flushing prior which will coincide with abovemonit or [id number] MD [facility] AT [address] [address] 08/12/2021 07:36:17 08/17/2021 12:26:10 Coronary atherosclerosis 380662295 I25.10 ASA 81 mg dailyatorv astatin 80 mg dailymetop rolol ER 100 mg dailywill monitor Cobalamin deficiency 190 008758 E53.8 B12 1000 mcg dailywill monitor Hypertensive disorder 38 536799 I10 metoprolol ER 100 mg dailywill monitor Mixed hyperlipidemia 267 469134 E78.2 ezetimibe 10 mg dailyatorv astatin 80 mg dailywill monitor Mixed anxi ety and depressive disorder 468167250 F41.8 escitalopr am 7.5 mg dailymirta zapine 7.5 mg at hswill monitor Osteoarthritis 405940060 M15.0 APAP 1000 mg bid and 500 mg q4h prnwill monitor SARS-CoV-2 358681369 U07 .1 tested positive 07/12/21sta rted Paxlovid 07/13/21had mild course and recoveredw ill continue to monitor Impaired cognition 93248 6002 R41.89 will monitor and support as neededexpe ct declinesee meds for mixed anxiety/de pressive disorder [id number] ÁNGELA Camacho AT [address] [address] 5 08/13/2021 14:22:15 08/17/2021 12:49:42 Dementia 83565489 F01.50 Appears mild-moder ate at baselineEx pect declinePsy ch eval prnsee meds for mixed anxiety/de pressive disorder Hypertensive disorder 38 084434 I10 pt has increased bp of 172/70 however recent bps on the high side in the 140's lately.sta rt amlodipine 2.5 mg po dailyhr low at 47 x1, usually in the 55-72 rangeconsi luis decreasing metoprolol if hr cont to be lowmonitor [id number] JESS Burden AT [address] [address] 5 08/31/2021 15:20:33 09/02/2021 14:18:06 Retention of urine 366447208 R33.9 pt is feeling fine todayconti nue flush of mcpherson with 10 cc normal saline q Tuesday and prn discomfort will f/u with urologist in pt has another episode of bladder spasms not relieved with mcpherson flush then could consider adding small dose of oxybutynin at hs [id number] ÁNGELA Camacho AT [address] [address] 5 09/14/2021 12:00:28 09/16/2021 14:07:50 Dementia 10786963 F01.50 Appears mild-moder ate at baselineSL UMS todayExpec t declinePsy ch eval prnsee meds for mixed anxiety/de pressive disorder Hypertensive disorder 38 909405 I10 recently had amlodipine 2.5 mg po daily added in Maybps remain labile with less high bpsconside r decreasing metoprolol if hr cont to be lowhr 60 today and stablemoni tor Coronary atherosclerosis 465201172 I25.10 contASA 81 mg dailyatorv astatin 80 mg dailymetop rolol ER 100 mg dailywill monitor Cobalamin deficiency 190 683711 E53.8 contB12 1000 mcg dailywill monitor Mixed hyperlipidemia 267 621197 E78.2 contezetim johanna 10 mg dailyatorv astatin 80 mg dailywill monitor Mixed anxi ety and depressive disorder 579864800 F41.8 contescita lopram 7.5 mg dailymirta zapine 7.5 mg at hswill monitor Osteoarthritis 975662053 M15.0 contAPAP 1000 mg bid and 500 mg q4h prnwill monitor Impaired cognition 81885 6002 R41.89 will monitor and support as neededexpe ct declinesee meds for mixed anxiety/de pressive disorder Hearing loss 44598385 H9 1.93 pt is [facility] up at [facility] he does not need debrox anymoremon itor Retention of urine 01625 4002 R33.9 reports blockage of urine yesterday resolved with new foleycontc hange mcpherson out per nsg and flush mcpherson as neededusin g leg bag and night bagmonitor urine for amt/color/ clarity [id number] ÁNGELA Camacho AT [address] [address] 5 09/16/2021 14:26:27 2021 16:24:55 Coronary atherosclerosis 233874581 I25.10 HR is 49 today and has had several low hr/asympto maticcontA SA 81 mg dailyatorv astatin 80 mg dailydecre ase metoprolol ER 100 mg daily to 50 mg ER dailywill monitor [id number] MD WE[facility] Del[place] AT [address] [address] 5 10/21/2021 06:29:01 10/23/2021 12:03:41 Dementia [id number] F01.50 will monitor and support as neededexpe ct declinesee meds for mixed anxiety/de pressive disorder Coronary atherosclerosis [id number] I25.10 ASA 81 mg dailyatorv astatin 80 mg dailymetop rolol ER 50 mg dailywill monitor Cobalamin deficiency 190 429101 E53.8 B12 1000 mcg dailywill monitor Mixed anxi ety and depressive disorder [id number] F41.8 escitalopr am 7.5 mg dailymirta zapine 7.5 mg at hswill monitor Osteoarthritis [id number] M15.0 APAP 1000 mg bid and 500 mg q4h prnwill monitor Mixed hyperlipidemia 267 088798 E78.2 ezetimibe 10 mg dailyatorv astatin 80 mg dailywill monitor Hypertensive disorder 38 169037 I10 metoprolol ER 50 mg dailyamlod ipine 2.5 mg dailywill monitor [id number] Beatriz Cleaning NP [place] AT [address] [address] 11/03/2021 12:22:43 11/05/2021 11:26:48 Dementia [id number] F01.50 monitor and support as needed at [facility] for mixed anxiety/de pressive disorder Coronary atherosclerosis [id number] I25.10 ASA 81 mg dailyatorv astatin 80 mg dailymetop rolol ER 50 mg daily(rece ntly decreased due to low hr in the 40s, now stable)mon itor with pcp Cobalamin deficiency 190 305445 E53.8 B12 1000 mcg dailymonit or with pcp Mixed anxi ety and depressive disorder [id number] F41.8 escitalopr am 7.5 mg dailymirta zapine 7.5 mg at hsmonitor with pcp Osteoarthritis 721320475 M15.0 APAP 1000 mg bid and 500 mg q4h prnmonitor with pcp Mixed hyperlipidemia 267 130949 E78.2 ezetimibe 10 mg dailyatorv astatin 80 mg dailymonit or with pcp Hypertensive disorder 38 907879 I10 metoprolol ER 50 mg daily (hr stable in 60s after decrease)a mlodipine 2.5 mg dailybp monitor with pcp (140s /70s lately) Hyperlipidemia 17651979 E78.49 ezetimibe 10 mg qdatorvast atin 80 mg qdLFTs and lipid panel normal in May 2021monito r with pcp Age relate d macular degeneration [id number] H35.30 stablelant anoprolst sha 0.005 % 1 gtt to both eyes dailyprese rvision 1 tab bidmonitor with pcp Retention of urine [phone] R33.9 reports blockage of urine yesterday [...] Directives Directive Y: DNR, DNI, transfer to [facility], no dialysis, no artificial nutrition Payers Insurance Date Sequence Insurance Name Policy Number Policy Molina Covered Member ID Molina Member ID Guarantor Name 11/03/2021 2 [place]ID[place]: [facility] Maik Myrick [id number] Maik Myrick 11/03/2021 1 [place] [employer] Maik Myrick [id number] Maik Myrick 09/26/2020 1 [place]MEDICARE [place]PLACEMENT PPO) [id number] Maik Myrick [id number] Maik Myrick Notes Date Note Type Note [...] hospital - signed 02/27/21 JESS Burden [address] [facility], [address], [place], [address], [facility] [employer] 08/31/2021 15:29:11 09/14/2021 text/html ROS as noted in the HPI This 85 year old male [facility] care resident is seen today for routine rounding visit. Medical history is remarkable for cognitive impairment, CAD, hypertension, depression, hyperlipidemia, unsteady gait, chronic urinary retention with Mcpherson Patient had significantly reduced hearing despite hearing aides. He was seen at [facility] and patient reported that a drill was used to removed impacted cerumen with terrific improvement in his hearing. He now has a plan to go to [facility] regularly to monitor cerumen in ears. He [...] - signed 02/27/21 Beatriz Cleaning NP [address] [facility], [address], [place], [address], [facility] 09/14/2021 13:12:00 09/16/2021 text/html ROS as noted in the HPI This 85 year old male usp care resident is seen today for an [...] fine and cooperative with assessment today in [facility]. 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 MOLST: DNR, DNI, okay to transfer to hospital - signed 02/27/21 Beatriz Cleaning NP [address] [facility] [address], [place], [address], [facility] 09/16/2021 14:37:41 10/21/2021 text/html ROS as noted in the HPI This 86 year old male usp care resident is seen today for routine [...] wheelchair in his room watching television in [facility]. He tells me that he feels good today. MOLST: DNR, DNI, okay to transfer to hospital - signed 02/27/21 Deya Krishnan MD [address] [facility], [address], [place], [address], [facility] 10/21/2021 10:58:23 11/03/2021 text/html ROS as noted in the HPI This 86 year old male [facility] care resident is seen today for a discharge visit. Medical history is remarkable for cognitive impairment, CAD, hypertension, depression, hyperlipidemia, unsteady gait, chronic urinary retention with Mcpherson, hx of right fractured femur healed now. Recently at [place] his pulse had been running low, so metoprolol ER decreased to 50 mg daily on 09/17/21 with good effect. Pulse now in 60s and BP in 140s/ 70s range. He had a significant cerumen impaction effecting both ears requiring multiple debrox treatments [facility] He [facility] in [...] - signed 02/27/21 Beatriz Cleaning NP [address] [facility], [address], [place], [address], [facility] 11/03/2021 12:38:51
[2025-01-04 05:55] LABS: Hematocrit 37.3 % (42.0-52.0); Hemoglobin 12.8 g/dl (14.0-18.0); Mean Corpuscular HGB Conc 34.3 g/dl (31.0-36.0); Mean Corpuscular Hemoglobin 32.5 pg (27.0-33.0); Mean Corpuscular Volume 94.7 fL (80.0-98.0); NRBC Abs Auto 0.000 X10*3/uL (0.0-0.012); NRBC Pct Auto 0.0 /100WBC (0.0-0.2); Platelet Count 103 X10*3/uL (160-400); Red Blood Count 3.94 X10*6/uL (4.60-5.80); White Blood Count 8.1 X10*3/uL (4.8-10.8)
== END 2025-01-04 05:46 | disposition home or self-care (01) ==
LOC: HO.HSH3E 05:45
PROVIDERS: Visit Provider Nurse Practitioner
DX: R31.9 Hematuria, unspecified (principal)
CPT/HCPCS: 36415; 85027

== ENCOUNTER 2025-02-27 09:27 | Outpatient (AMB) | payer MEDICARE, SELFPAY ==
--- NOTE | 2025-02-27 09:35 | MHC.OFFVIS ---
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 Required: No Allergies lisinopril Allergy (Verified 02/27/25 21:21) Unknown Medication List - Last Reconciled 02/27/25 by DAWSON Martinez acetaminophen 650 mg PO Q6H PRN albuterol sulfate 90 mcg/actuation 2 inhalations inhalation Q4-6H PRN albuterol sulfate 90 mcg/actuation (ProAir HFA) 2 puffs inhalation Q4H PRN amlodipine 10 mg PO DAILY apixaban (Eliquis) 2.5 mg PO BID ascorbic acid (vitamin C) 500 mg PO DAILY atorvastatin 40 mg PO BEDTIME ceftriaxone 1 g IV Q24H 11 days cholecalciferol (vitamin D3) 25 mcg PO DAILY cyanocobalamin (vitamin B-12) 2,000 mcg PO DAILY docusate sodium 100 mg PO BID doxycycline hyclate 100 mg PO BID 10 days escitalopram oxalate 5 mg PO DAILY ezetimibe 10 mg PO DAILY folic acid 1 mg PO DAILY hydrochlorothiazide 25 mg PO DAILY latanoprost 0.005% 1 drp ophthalmic (eye) DAILY magnesium oxide 400 mg PO DAILY methenamine hippurate 1 g PO BID metoprolol succinate ER 50 mg PO DAILY potassium chloride ER 20 mEq PO DAILY vitamins A,C,J-vpra-oxlvzc 2,148 mcg-113 mg-45 mg-17.4mg (PreserVision AREDS) 1 tab PO BID HPI Comments Details: Maik Beckwith is a pleasantly confused 89-year-old male patient who [facility]. He has a past medical history of respiratory failure, BPH, frequent falls, overweight, depression, bladder cancer, vitamin B12 deficiency, vitamin-D deficiency, GERD, anemia, osteoarthritis, chronic kidney disease stage 3, elevated liver enzymes, subdural hematoma, hypertension, hypercholesteremia, and coronary artery disease. He is being follow-up on today for his history of bladder cancer, BPH, and urinary retention. In discussion with the patient today he reports to be doing and feeling well. He denies having had any bothersome urinary issues or concerns. In assessment of the patient today suprapubic tube site appears clean dry and intact. Suprapubic tube attached to flip flow and drained for semi dark-colored urine. Staff do report occasional hematuria however patient on anticoagulation. He has had a recent in office cystoscopy with Dr. Grossman as patient with a longstanding history of bladder cancer. In office cystoscopy 08/19 noted to be normal. In review of patient's chart it does appear patient is compliant with methenamine and vitamin-C as prescribed. We did discussed importance of hydration. He denies urinary urgency, urinary frequency, incontinence, nocturia, dysuria, foul smelling urine, changes to urinary stream, flank pain, fever, and or chills. He is happy with his current voiding parameters. All questions were answered. PREVIOUS OFFICE NOTES: Office visit Accompanied by Cystoscopy normal Has a little bit of blood in bladder Hypergranulation tissue at site. Use of silver nitrate in office Bladder cancer Initial resection May 2016 Cystoscopy - 07/18 NAD Lower urinary tract symptoms Urinary retention September 2020 Associated with orthopedic procedure Medications tamsulosin PSA 11/16 1.9 Cystoscopy 07/17 large median lobe otherwise normal Failed voiding trial [facility] Medical History Mucus plugging of bronchi Respiratory failure with hypoxia and hypercapnia Atelectasis of left lung BPH (benign prostatic hyperplasia) Frequent falls On beta priscilla at home Overweight (BMI 25.0-29.9) Depression Urothelial carcinoma of bladder Vitamin B12 deficiency Vitamin D deficiency GERD without esophagitis Anemia Primary osteoarthritis, right shoulder Osteoarthritis of both knees Chronic kidney disease, stage III (moderate) Impaired fasting glucose Elevated liver enzymes Subdural hematoma Benign essential hypertension Pure hypercholesterolemia Coronary artery disease Surgical History History of tonsillectomy History of transurethral resection of bladder tumor (TURBT) History of hip surgery History of transurethral resection of prostate History of shoulder surgery Family History Father CVD (cardiovascular disease) Mother Hypertension Social History Household Members: Other Housing: Residential Housing Other:: [facility] Are you a primary career portals teacher to a significant other at home: No Do you presently have visiting nurse or other home services: No Alcohol intake: former Patient Tobacco Use Status: Former Tobacco user Advance Directives Date on File: 08/18/22 service: Yes Review of Systems Const Reports as per [facility] Eyes Reports no additional complaints ENT Reports no additional complaints Card Reports as per [facility] Resp Reports as per [facility] GI Reports as per [facility] Reports as per [facility] Musc Reports as per [facility] Neuro Reports as per [facility] Psych Reports as per [facility] Endo Reports as per [facility] Physical Exam Const General: cooperative, healthy appearing, comfortable, no acute distress, well developed, alert and awake Nutritional Appearance: overweight Orientation/consciousness: oriented to person Limitations: wheelchair HEENT Head: Yes normal to inspection Eyes General: appearance normal, both eyes and all related structures Neck Neck: Yes normal visual inspection and Yes trachea midline Chest Chest palpation & inspection: normal inspection of the chest Resp Effort & Inspection: normal respiratory effort and able to speak in complete sentences Cardio Rate: regular rate GI Inspection: Yes normal to inspection General: Yes deferred Neuro General: oriented to person Extrem General: Yes normal to inspection Psych Appearance: grossly normal and well kempt Speech and movement: Clear speech present Affect: normal affect Attitude: cooperative Thought content: Normal thought content present Insight: Limited insight present (Psych) Judgement: Limited judgement present (Psych) Assessment & Plan Assessment & Plan (1) BPH w urinary obs/LUTS: Code(s): N40.1 - Benign prostatic hyperplasia with lower urinary tract symptoms; N13.8 - Other obstructive and reflux uropathy Category: Medical (2) Urinary retention with incomplete bladder emptying: Code(s): R33.9 - Retention of urine, unspecified Category: Medical (3) Male hypospadias: Code(s): Q54.9 - Hypospadias, unspecified Category: Medical Plan Suprapubic site appears clean dry and intact Suprapubic drain for niza-puim-aijhpyz urine. Continue suprapubic tube catheter changes as well as flip flow valve as ordered. We did discuss and review importance of adequate hydration. We discussed next follow-up in office for cystoscopy in 6 months for surveillance monitoring. All questions were answered. He denies any bothersome urinary issues. Follow-up in office in 6 months for in office cystoscopy; or sooner with any issues, concerns, and or questions. Patient Instructions: The patient had an opportunity to ask questions regarding the treatment plan. All questions were answered. Physical exam, labs, and imaging were discussed and reviewed in detail. As well as risks, benefits, and discussion of treatment choices. No major barriers to understanding were identified. The patient expressed understanding and agreement with the above treatment plan. The patient was made aware they should contact our office by phone for worsening of their current condition, the appearance of new symptoms, or with any questions or concerns. Compliance is encouraged with any medications and follow up testing that is ordered. It is a privilege to be allowed the opportunity to participate in? your urological care.? Again, if you have any questions or concerns If you have any questions or concerns please do not hesitate to contact me. The office is [phone]. This note is constructed using voice recognition software. While every effort has been made to ensure accuracy php software engineer errors may have been included. Yours sincerely, DAWSON Martinez Coding Level of Care Code Est Pt Level 3 (76136) Complex visit Add On G2211 Diagnoses BPH w urinary obs/LUTS N40.1; N13.8 Urinary retention with incomplete bladder emptying R33.9 Male hypospadias Q54.9
--- OUTSIDE RECORDS SUMMARY | 2025-02-27 10:19 | XMS_ITS | Data Portability ---
Author Organization [facility], Main Office Address [address] [facility] [address], [address] [place] [address] Care Team Providers Care Digital Designer Name Role Phone [facility] OTHER FRANCIS LUNA Primary Care Provider [...] Time Vascular dementia with behavior al disturba [facility] [id number] 9104 Active 2020 JESS Burden [address] [facility] [address], [address], [place], [address], [facility] 12:48:00 Sleep terror disorder 85988812 Active 2020 JESS Burden [address] [facility] [facility], [address], [place], [address], [facility] 12:48:15 Hearing loss 63256874 Active 2020 JESS Burden [address] [facility], [address], [place], [address], [facility] 12:48:38 Acute posthemo rrhagic anemia 917522062 Active 2020 JESS Burden [address] [facility], [address], [place], [address], [place] [employer] [facility] 1 12:55:55 Fracture of neck of femur 1742496 Active 2020 JESS Burden [address] [facility] [facility], [address], [place], [address], [facility] [employer] [facility] 1 12:56:10 Chronic kidney disease stage 2 255330772 Completed 202012/01/2020 Removal Reason: diagosis revised CHUY ZIMMERMAN PA-C [address] [facility] [facility], [address], [place], [address], [employer] 1 14:47:13 Hyperten sive disorder 74282476 Active 2020 JESS Burden [address] [facility], [address], [place], [address], [facility] [employer] [facility] 1 12:56:54 Recurren t falls 748411153 Active 2020 JESS Burden [address] [facility] [address], [address], [place], [address], [employer] 1 13:15:10 Mixed hyperlip idemia 132690920 Active 2020 JESS Burden [address] [facility], [address], [place], [address], [employer] 1 13:23:50 Hypoalbu minemia 833672968 Active 2020 Esvin Curriein null, [facility] 1 11:02:32 Atherosc lerosis of coronary artery without angina pectoris 03609059976 4103 Active 2020 Esvin Curriein null, [facility] [employer] [facility] 1 11:02:35 Impaired cognitio n 115129940 Active 2020 Esvin Curriein null, [facility] [employer] [facility] 1 11:02:37 Edema 475796340 Active 2020 Esvin Curriein null, [facility] [employer] [facility] 1 11:02:56 Glaucoma 62708870 Active 2020 Esvin Curriein null, [facility] [employer] [facility] 1 11:04:42 Mild major depressi on 12065996 Active 2020 Esvin Slater null, [facility] 1 11:05:39 Cobalami n deficien cy 641752184 Active 2020 Esvin Slater null, [facility] 1 11:06:28 Vitamin D deficien cy 61939231 Active 2020 Esvin Curriein null, [facility] 1 11:06:40 Dementia 43115854 Active 2020 Esvin Curriein null, [facility] 1 10:38:31 Age related macular degenera tion 923686908 Active 2020 Esvin Curriein null, [facility] 1 10:39:14 Retentio n of urine 971244247 Active 2020 Esvin Slater null, [facility] 1 09:14:20 Coronary atherosc lerosis 007547864 Active 2020 Esvin Slater null, [facility] 1 19:52:59 SARS-CoV -2 Active 2021 Beatriz Cleaning NP [address] [facility] [address], [address], [place], [address], [facility] 2 15:12:59 Impacted cerumen in left ear 96042753425 98688 Active 2021 Beatriz Cleaning NP [address] [facility], [address], [place], [address], [facility] 2 15:30:09 Problem Notes None recorded. Medical Equipment None Reported. Allergies Allergen ID Allergen Name Allergen Category Reaction Reaction Severity Criticality Documentation Date Start Date Code Code System Note Provider Name and Address Organization Details Recorded Time 01121 lisinopri l medicatio n other severe Not available 09/23/2020 70436 RxNorm OLEG and hyper kalem ia CHUY ZIMMERMAN PA-C [address] [facility], [address], [place], [address], [facility] 1 13:15:06 Medications Not known to be on any medication Vitals Date Recorded Body height Oxygen saturation Heart rate Respiratory rate Body temperature Systolic And Diastolic Provider Name and Address Organization Details Last Updated DateTime 2 170.18 cm 97 % 55 /min 18 /min 97.6 [degF] 112/58 mm[Hg] JESS Burden [address] [facility], [facility] [address], [place], [address], [facility] 2 15:21:10 Date Recorded Body height Body mass index (BMI) Body weight Heart rate Respiratory rate Body temperature Oxygen saturation Systolic And Diastolic Provider Name and Address Organization Details Last Updated DateTime 2 170.18 cm 31.3 kg/m2 88383.4 7 g 60 /min 18 /min 97.4 [degF] 97 % 106/52 mm[Hg] Beatriz Cleaning NP [address] [facility], [facility] [address], [place], [address], [facility] 2 12:01:42 Date Recorded Body height Body mass index (BMI) Body weight Heart rate Respiratory rate Body temperature Oxygen saturation Systolic And Diastolic Provider Name and Address Organization Details Last Updated DateTime 2 170.18 cm 31.3 kg/m2 09704.4 7 g 48 /min 18 /min 97.2 [degF] 96 % 129/59 mm[Hg] Beatriz Cleaning NP [address] [facility], [facility] [address], [place], [address], [facility] 2 14:29:20 Date Recorded Body height Body temperature Oxygen saturation Heart rate Systolic And Diastolic Provider Name and Address Organization Details Last Updated DateTime 2 170.18 cm 97.8 [degF] 96 % 64 /min 106/63 mm[Hg] Deya Krishnan MD [address] [facility] [address], [address], [place], [address], [facility] 2 06:29:20 Date Recorded Body height Body mass index (BMI) Body weight Heart rate Respiratory rate Body temperature Oxygen saturation Systolic And Diastolic Provider Name and Address Organization Details Last Updated DateTime 2 170.18 cm 31.2 kg/m2 46828.8 8 g 67 /min 18 /min 97.2 [degF] 96 % 142/72 mm[Hg] Beatriz Cleaning, [employer] [address], [address], [place], [address], [facility] 2 12:24:01 Social History Question Answer Notes LastModified by Organizat ion Details LastModified Time Tobacco Smoking Status Former Smoker Nettie Richie, [employer] [address] , [address], [place], [address], [facility] [employer] [facility] 07/10/2020 12:45:29 Do You Have An Advance Directive? Yes DNR, DNI, Transfer To Hospital, No Dialysis, No Artificial Nutrition [email or web address] Information not available 07/10/2020 What Is Your Code Status? DNR/DNI [email or web address] Information not available 12/01/2020 Legal Guardian? No Information not available 12/01/2020 Do You Have A Medical Power Of Clinical Specialist Vascular? Yes HCP Invoked [email or web address] Information not available 07/10/2020 What Was The Date Of Your Most Recent Tobacco Screening? 11/28/2020 [email or web address] Information not available 12/01/2020 How Much Tobacco Do You Smoke? 1 PPD [email or web address] Information not available 07/10/2020 Has Tobacco Cessation Counseling Been Provided? No N/A [email or web address] Information not available 12/01/2020 How Many Years Have You Smoked Tobacco? 20 [email or web address] Information not available 07/10/2020 Sex: Unknown Functional Status Question Answer Note LastModified by Organizat ion Details LastModified Time Do you or have you ever used any other forms of tobacco or nicotine? No Information not available 12/01/2020 What is your level of alcohol consumption? None Hx heavy: 1 bottle of wine per day; not drinking since [email or web address] Information not available 12/01/2020 Do you or have you ever used smokeless tobacco? Never used smokeless tobacco [email or web address] Information not available 07/10/2020 Do you or have you ever used e-cigarettes or vape? Never used electronic cigarettes [email or web address] Information not available 07/10/2020 Mental Status None recorded. Family History Nothing Reported. Medical History No medical history recorded. Immunizations Vaccine Type Date Status Note Provider Nam e and Address Organization Details Recorded Time COVID-19, mRNA, LNP-S, PF, 30 mcg/0.3 mL dose 05/08/2020 completed CHUY ZIMMERMAN PA-C [address] [facility] [address], [address], [place], [address], [facility] 12/01/2020 14:48:34 COVID-19, mRNA, LNP-S, PF, 30 mcg/0.3 mL dose 06/05/2020 completed CHUY ZIMMERMAN PA-C [address] [facility], [address], [place], [address], [facility] 12/01/2020 14:48:40 Past Encounters Encounter ID Performer Location Encounter Start Date Encounter Closed Date Diagnosis/Indication Diagnosis SNOMED-CT Code Diagnosis ICD10 Code Diagnosis IMO Codes Diagnosis Note [id number] JESS Burden AT [address] [address] 07/10/2020 12:35:42 07/16/2020 09:44:34 Fracture of neck of femur 2100827 S72.001D see hpi mechanical fall at home, ORIF at [facility] lovenox 40 mg sq qd till 08/20 oxycodone 5 mg q 6 hrs prn monitor right hip incisions f/u with ortho Acute post hemorrhagic anemia 514801718 D62 no labs in chart or dc summary available monitor cbc weekly - pending today Chronic ki dney disease stage 2 400618055 N18.2 limited paperwork from [facility] states OLEG on CKD - appears that pt's lisinopril was held at hospital avoid nephrotoxi c meds as able monitor cmp this week then bmp weekly - pending today Hypertensive disorder 38 301933 I10 bp mildly elevated lisinopril 20 mg qd - on hold til 07/12 metoprolol 25 mg bid asa 81 mg qd monitor bp and adjust meds prn 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 known hx of per lexapro 20 mg qd remeron 7.5 mg qhs gabapentin 300 mg bid per pt will wake up at night screaming psych to follow Vascular d ementia with behavioral disturbance 7967241841 80389 F01.51 per pt is forgetful will wait till pt is settled into unit to do SLUMS supportive care expect decline Hearing loss 27389690 H9 1.93 known hx of supportive care Mixed hyperlipidemia 267 119787 E78.2 zetia 10 mg qd lipitor 80 mg qhs check lipid panel once pt is LTC Recurrent falls 06690963 2 R29.6 PT OT for conditioni ng and mobility monitor for fall risk didn't think that his drinking had much to do with his falls, says they usually happened in the morning and he did not start drinking till 11 am [id number] ESVIN SLATER MD [place] AT [address] [address] 07/11/2020 10:34:37 07/16/2020 10:27:03 Fracture of neck of femur 3356125 S72.001D continue with therapy, pain rx, DVT prophyllax is Recurrent falls 74797759 2 R29.6 will taper off gabapentin as this may predispose to falls, also reduce lexapro to 10 for same reason Macrocytic anemia 422497 05 D53.9 unclear if due to blood loss from recent surgery or other. Will give iron for a month, check B12, folate and MMA Hypertensive disorder 38 442964 I10 controlled with current rx. Will consolidat e metoprolol into a single daily dose Mixed hyperlipidemia 267 919536 E78.2 continue current rx Impaired cognition 55699 6002 R41.89 has mild to moderate impairment of cognition which is chronic. Accompanyi ng visual hallucinat ions suggestive of Lewy body dementia. can no longer care for him at home. 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 Last drink a week ago so no risk of withdrawal at this time. Continue abstinence . Has mild liver enzyme abnormalit ies which should be rechecked in a month or so Edema 174837497 R60.9 due to hypoalbumi nemia and recent surgery. No new rx needed at this time Glaucoma 45256762 H40.9 continue current rx Age relate d macular degeneration 508512802 H35.30 continue current supplement s Mild major depression 87 805819 F32.0 continue remeron, continue lexapro after dose reduction as above Cobalamin deficiency 190 186197 E53.8 continue rx Vitamin D deficiency 347 44793 E55.9 continue rx [id number] JESS Burden AT [address] [address] 07/15/2020 13:48:11 07/17/2020 12:55:19 Fracture of neck of femur 0860989 S72.001D mechanical fall at home, ORIF at [facility] lovenox 40 mg sq qd till 08/20 oxycodone 5 mg q 6 hrs prn monitor right hip incisions f/u with ortho Acute post hemorrhagic anemia 849011552 D62 now on iron check cbc weekly Chronic ki dney disease stage 2 519808451 N18.2 pt's lisinopril was held at hospital - resumed on 07/12 avoid nephrotoxi c meds as able monitor cmp this week then bmp weekly - pending today Hypertensive disorder 38 323222 I10 bp mildly elevated lisinopril 20 mg qd - on hold til 07/12 metoprolol 25 mg bid asa 81 mg qd monitor bp and adjust meds prn 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 855579 F51.4 known hx of per lexapro 10 mg qd remeron 7.5 mg qhs gabapentin taper to discontinu e per pt will wake up at night screaming psych to follow Vascular d ementia with behavioral disturbance 8416356069 53214 F01.51 per pt is forgetful will wait till pt is settled into unit to do SLUMS supportive care expect decline Hearing loss 62869049 H9 1.93 known hx of supportive care Mixed hyperlipidemia 267 805626 E78.2 zetia 10 mg qd lipitor 80 mg qhs check lipid panel once pt is LTC Recurrent falls 22561351 2 R29.6 continue PT OT monitor for fall risk didn't think that his drinking had much to do with his falls, says they usually happened in the morning and he did not start drinking till 11 am [id number] JESS Burden AT [address] [address] 07/18/2020 16:13:42 07/21/2020 16:23:47 Fracture of neck of femur 0020947 S72.001D mechanical fall at home, ORIF at [facility] lovenox 40 mg sq qd till 08/20 oxycodone 5 mg q 6 hrs prn monitor right hip incisions f/u with ortho in 4 weeks WBAT now Acute post hemorrhagic anemia 782418425 D62 now on iron and folic acid check cbc weekly Chronic ki dney disease stage 2 908785958 N18.2 pt's lisinopril was held at hospital - resumed on 07/12 avoid nephrotoxi c meds as able monitor renal function Hypertensive disorder 38 230586 I10 bp normal for his age lisinopril 20 mg qd 7 metoprolol 50 mg qd asa 81 mg qd monitor bp and adjust meds prn 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 637927 F51.4 known hx of per lexapro 10 mg qd remeron 7.5 mg qhs gabapentin off today per pt will wake up at night screaming psych to follow Vascular d ementia with behavioral disturbance 1413105176 66224 F01.51 per pt is forgetful will wait till pt is settled into unit to do SLUMS supportive care expect decline Hearing loss 96987964 H9 1.93 known hx of supportive care Mixed hyperlipidemia 267 866302 E78.2 zetia 10 mg qd lipitor 80 mg qhs check lipid panel once pt is [facility] [id number] JESS Burden AT [address] [address] 07/22/2020 15:59:01 07/24/2020 11:51:12 Fracture of neck of femur 7809048 S72.001D lovenox 40 mg sq qd till 08/20 oxycodone 5 mg q 6 hrs prn monitor right hip incisions f/u with ortho in 3 weeks WBAT now Acute post hemorrhagic anemia 509010914 D62 now on iron and folic acid check cbc weekly Chronic ki dney disease stage 2 374186108 N18.2 pt's lisinopril was held at hospital - resumed on 07/12 avoid nephrotoxi c meds as able monitor renal function Hypertensive disorder 38 743311 I10 bp normal for his age lisinopril 20 mg qd metoprolol 50 mg qd asa 81 mg qd monitor bp and adjust meds prn 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 922806 F51.4 known hx of per lexapro 10 mg qd remeron 7.5 mg qhs per pt will wake up at night screaming psych prn Vascular d ementia with behavioral disturbance 7172738244 72149 F01.51 per pt is forgetful will wait till pt is settled into unit to do SLUMS supportive care expect decline Mixed hyperlipidemia 267 763445 E78.2 zetia 10 mg qd lipitor 80 mg qhs check lipid panel once pt is LT [id number] JESS Burden AT [address] [address] 07/24/2020 16:22:49 07/28/2020 15:46:18 Fracture of neck of femur 2699166 S72.001D lovenox 40 mg sq qd till 08/20 oxycodone 5 mg q 6 hrs prn monitor right hip incisions f/u with ortho in 3 weeks WBAT now moderate edema in RLE 2/2 sitting in wheelchair Acute post hemorrhagic anemia 478590931 D62 now on iron and folic acid check cbc weekly Chronic ki dney disease stage 2 101154593 N18.2 pt's lisinopril was held at hospital - resumed on 07/12 avoid nephrotoxi c meds as able monitor renal function Hypertensive disorder 38 271730 I10 bp normal for his age lisinopril 20 mg qd metoprolol 50 mg qd asa 81 mg qd monitor bp and adjust meds prn 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 817347 F51.4 known hx of per lexapro 10 mg qd remeron 7.5 mg qhs psych prn Vascular d ementia with behavioral disturbance 5074756798 79659 F01.51 supportive care expect decline [id number] JESS Burden AT [address] [address] 07/29/2020 14:51:03 08/01/2020 11:53:31 Fracture of neck of femur 4534631 S72.001D continue PT OT lovenox 40 mg sq qd till 08/20 oxycodone 5 mg q 6 hrs prn monitor right hip incisions f/u with ortho in 2 weeks WBAT now Acute post hemorrhagic anemia 320619059 D62 now on iron and folic acid check cbc weekly Chronic ki dney disease stage 2 325401472 N18.2 creat 1.1 on 07/24 - stable pt's lisinopril was held at hospital - resumed on 07/12 avoid nephrotoxi c meds as able monitor renal function Hypertensive disorder 38 263939 I10 bp normal for his age lisinopril 20 mg qd metoprolol 50 mg qd asa 81 mg qd monitor bp and adjust meds prn 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 030897 F51.4 known hx of per lexapro 10 mg qd remeron 7.5 mg qhs psych prn Vascular d ementia with behavioral disturbance 5558329301 29541 F01.51 supportive care expect decline [id number] JESS Burden AT [address] [address] 08/01/2020 13:45:56 08/04/2020 14:48:25 Fracture of neck of femur 1289150 S72.001D continue lovenox 40 mg sq qd till 08/20 oxycodone 5 mg q 6 hrs prn monitor right hip incisions f/u with ortho in 2 weeks WBAT now Acute post hemorrhagic anemia 243303171 D62 now on iron and folic acid check cbc weekly Chronic ki dney disease stage 2 743085771 N18.2 creat 1.1 on 07/24 - stable pt's lisinopril was held at hospital - resumed on 07/12 avoid nephrotoxi c meds as able monitor renal function Hypertensive disorder 38 251866 I10 bp normal for his age lisinopril 20 mg qd metoprolol 50 mg qd asa 81 mg qd monitor bp and adjust meds prn 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 706352 F51.4 known hx of per lexapro 10 mg qd remeron 7.5 mg qhs psych prn Vascular d ementia with behavioral disturbance 2261669447 89807 F01.51 supportive care expect decline pt will stay LTC Acute diarrhea 262636294 R19.7 will send out stool for c diff monitor for worsening stools [id number] MD [facility] AT [address] [address] 08/04/2020 11:20:20 08/06/2020 14:15:38 Edema 784079702 R60.9 has chronic bilateral edema but much more so on right. Will get venous US of RLE to r/o DVT. Until result available will up lovenox dose to therapeuti c level. Fracture o f neck of femur 9640589 S72.001D will stop oxycodone now [id number] JSES Burden AT [address] [address] 08/07/2020 13:17:35 08/08/2020 15:38:28 Fracture of neck of femur 6971642 S72.001D decrease back to lovenox 40 mg sq qd till 08/20 tylenol prn monitor right hip incisions f/u with ortho WBAT now pt plateaued with rehab, off rehab RLE edema 2/2 femur fracture and repair no treatment at this time for Nguyễn's cyst Acute post hemorrhagic anemia 674035719 D62 now on iron and folic acid hgb slowly improving check cbc weekly Chronic ki dney disease stage 2 215751767 N18.2 creat 0.9 on 08/07 - stable pt's lisinopril was held at hospital - resumed on 07/12 avoid nephrotoxi c meds as able monitor renal function Hypertensive disorder 38 310374 I10 bp normal for his age lisinopril 20 mg qd metoprolol 50 mg qd asa 81 mg qd monitor bp and adjust meds prn 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 725092 F51.4 known hx of per lexapro 10 mg qd remeron 7.5 mg qhs psych prn Vascular d ementia with behavioral disturbance 7167092282 86897 F01.51 supportive care expect decline pt will stay LTC [id number] MD [place] AT [address] [address] 08/26/2020 10:27:09 08/28/2020 15:48:27 Macrocytic anemia 75177534 D53.9 found to be folate deficient in addition to previous B12 deficiency , now on both supplement s. Vitamin D deficiency 347 60844 E55.9 order read 250 mcg per day which is 10,000 units, reduced to 1000 units per day Mixed hyperlipidemia 267 844803 E78.2 continue current rx Glaucoma 35267495 H40.9 continue current rx Atheroscle rosis of coronary artery without angina pectoris 1818952887 03018 I25.10 continue beta priscilla, ASA, statin, no evidence of ischemia. Has mild edema which is stable and not causing any symptoms so will not treat Mild major depression 87 093769 F32.0 continue remeron and lexapro Hypertensive disorder 38 446756 I10 controlled with current rx. Dementia 87258039 F03.90 stable at this time, slow progressio n anticipate d Age relate d macular degeneration 273084530 H35.30 continue current supplement [id number] JESS Burden [address] [address] 09/04/2020 14:23:28 09/09/2020 10:33:48 Chronic kidney disease stage 2 465977440 N18.2 will dc lisinopril recheck BMP on 09/05 and 09/08 Hypertensive disorder 38 511050 I10 bp normal for his age dc lisinopril as above metoprolol 50 mg qd asa 81 mg qd monitor bp and adjust med prn [id number] JESS Burden [address] [address] 09/09/2020 14:10:22 09/11/2020 15:27:14 Fracture of neck of femur 3591965 S72.001D healed f/u with ortho prn Acute post hemorrhagic anemia 741144471 D62 remains on folic acid 1 mg qd hgb stable btwn 9-10 monitor cbc Chronic ki dney disease stage 2 586105715 N18.2 see above avoid nephrotoxi c meds as able monitor renal function Hypertensive disorder 38 302883 I10 bp normal lisinopril on hold re-eval in 2 days metoprolol xl 50 mg qd asa 81 mg qd monitor bp and adjust meds prn Vascular d ementia with behavioral disturbance 3833519995 03644 F01.51 mood stable remeron 7.5 mg qhs lexapro 10 mg qd supportive care expect decline monitor mood, behaviors psych prn Acute kidney injury 1466 9001 N17.9 see hpi mcpherson placed in hospital recommend voiding trial in one week lisinopril on hold, re-eval in 2 days creat 1.5 on 09/09 will need f/u with DR Miguel barragan in [place] in one week pt has hx of bladder cancer Atheroscle rosis of coronary artery without angina pectoris 5011587412 34977 I25.10 atorvastat in 80 mg qhs asa 81 mg qd zetia 10 mg qd monitor for chest pain, sob [id number] JESS Burden AT [address] [address] 09/11/2020 13:18:36 09/16/2020 10:23:21 Acute kidney injury 50477143 N17.9 mcpherson placed in hospital recommend voiding trial in one week lisinopril on hold - would not resume as BP is low normal creat 1.2 on 09/10 f/u with DR Miguel barragan in [place] on 10/22 pt has hx of bladder cancer Fracture o f neck of femur 1115139 S72.001D healed f/u with ortho prn Acute post hemorrhagic anemia 686800300 D62 remains on folic acid 1 mg qd hgb stable btwn 9-10, though slightly lower on 09/10 at 8.9 continue to monitor cbc Chronic ki dney disease stage 2 459497301 N18.2 see above avoid nephrotoxi c meds as able monitor renal function Hypertensive disorder 38 012104 I10 bp low normal do not resume lisinopril metoprolol xl 50 mg qd asa 81 mg qd monitor bp and adjust meds prn Vascular d ementia with behavioral disturbance 1094995865 62446 F01.51 SLUMS 27/30 states normal but pt does have issues with insight and while essentiall y normal SLUMS pt did not understand the workings of his mcpherson, thought he was at [facility] now, has issues with insight mood stable remeron 7.5 mg qhs lexapro 10 mg qd supportive care expect decline monitor mood, behaviors psych prn Atheroscle rosis of coronary artery without angina pectoris [id number] 85946 I25.10 atorvastat in 80 mg qhs asa 81 mg qd zetia 10 mg qd monitor for chest pain, sob [id number] MD [facility] AT [address] [address] 09/16/2020 08:26:07 09/18/2020 12:12:41 Retention of urine 213332904 R33.9 presumed due to BPH, has been on flomax for about 10 days, time for a voiding trial. Will stop mcpherson today, reinsert if unable to void in 8 hours or if PVR > 300 cc in next few days. Chronic ki dney disease stage 2 072231427 N18.2 at his baseline Hypoalbuminemia 32033020 4 E88.09 chronic and stable Hypertensive disorder 38 548241 I10 controlled with current rx, will not resume lisinopril at this time [id number] ANIL WARD AT [address] [address] 09/17/2020 12:58:47 10/17/2020 14:56:26 Retention of urine 064082300 R33.9 --1st 2 PVRs s/p mcpherson removal acceptable --cont to monitor PVRs; if > 300 cc, reinsert mcpherson--con t Flomax 0.4mg po qhs--outpa tient f/u w/ urology 10/22/20 Macrocytic anemia 895570 05 D53.9 --H&H down minimally vs last week--poss ibly multifacto rial given pmhx--cont B12 supps for hx B12 defic & macrocytic anemia--co nt to monitor; if persists or worsens, consider stool guaiacs & additional labs Leukocytosis 386121339 D 72.829 --mild; no fever, exam neg, ROS neg--cont to monitor clinically Chronic ki dney disease stage 2 633896469 N18.2 --Cr stable at 1.2--cont routine monitoring --avoid nephrotoxi c meds [id number] ANIL RM AT [address] [address] 09/23/2020 13:13:42 10/01/2020 11:02:47 Caipk-ai-bxbgihv renal failure 405892549 N17.9 Hx obstructiv e uropathyBl adder scan [...] impair renal functionFo llow labs Macrocytic anemia 538953 05 D53.9 Significan t dropNo cardiac/re spiratory complaints Stool guaiac x 3Continue ASA for nowNo evidence of bleeding into site of hip fractured/ c B12 since level very therapeuti c and MMA negativeFo llow labs Acute hyponatremia 90193 02 E87.1 significan t drop over past 5 daysNot on any meds that typically affect serum Daniela evidence of volume overload on exam so may be hypovolemi c hyponatrem ia and may be giving IVF if not retaining (see above) Vitamin D deficiency 347 86921 E55.9 Check level given renal impairment ; may need or be able to d/c [id number] ANIL RM AT [address] [address] 09/24/2020 12:47:44 10/01/2020 11:13:29 Acute heart failure 85542552 I50.9 Probably iatrogenic from IVF although barely got more than 1 literWeigh t up 21 lbs since earlier this month although unk if gradual or acutePt is dyspneic although with clear lungsHeart M is newLasix 20 mg po x 1Daily weights x 1 week then weeklyCons ider repeat echo Urinary tr act obstruction 0399648 N13.9 Nurse just now bladder scanned pt for 999 ml (scanner does not go higher than this)She straight cath'd him for 900 ml then 700 ml and he was still passing urineFoley catheter to gravityInc rease Flomax to 0.8 mg po qhs - start tonightRen al and bladder u/s done during recent hospitaliz ation unrevealin [facility] ed to f/u Miguel i for cystoscopy due to hx bladder caU/A pend and will be reviewed when available as acute UTI can also cause retention Acute hyponatremia 21794 02 E87.1 Serum osm, Urine osm/Na/Cr pendProbab ly related to intrinsic AKIdivalen ts pend for tomorrow Acute post hemorrhagic anemia 680286202 D62 Stool guaiacs pendCBC pend for am although may be hemodilute d from IVF Vitamin D deficiency 347 09977 E55.9 Level pend and will be reviewed when available [id number] ANIL RM AT [address] [address] 5 09/25/2020 10:54:42 10/01/2020 11:24:41 Acute heart failure 95151261 I50.9 Weight down drasticall y overnight although [...] drawn this am Urinary tr act obstruction 2522919 N13.[address] and functionin gFlomax was increased as of last nightHas appointmen t with urology later this monthFaile d voiding trialGiven ongoing retention and hx bladder ca with recommenda tion for cystoscopy , will not reattempt voiding trial between now and urology f/u Acute hyponatremia 84453 02 E87.1 Serum Na improvedFo llow divalents Acute post hemorrhagic anemia 563899406 D62 Stool guaiacs pendRemain s on ASAH&H essentiall y unchanged last few daysFollow labsCheck Fe studies and hemolysis labs Vitamin D deficiency 347 70932 E55.9 Suprathera peutic leveld/c supplement Acute-on-c hronic renal failure 943232343 N17.9 Improved with insertion of Mcpherson and brief IVFCheck MgFollow labs [id number] ANIL RM AT [address] [address] 09/26/2020 10:10:32 10/18/2020 03:48:37 Hypomagnesemia 570408970 E83.42 Mag oxide 400 mg po dailyMg level 1 week Anemia in chronic kidney disease 512472570 D63.1 hemolysis labs negative so far -- await rest of resultseut hyroidanem ia likely related to CKDfollow CBC [id number] ANIL RM AT [address] [address] 09/30/2020 11:17:42 10/17/2020 15:46:42 Lower urinary tract obstructive syndrome 24543861 N13.9 resolved with FoleyConti nue Mcpherson until seen by uroConmonicau brigid Flomax 0.8 mg po qhsUrology f/u later this month Acute-on-c hronic renal failure 435961342 N17.9 resolved with FoleyRenal labs baseline Acute post hemorrhagic anemia 508341863 D62 Stool guaiacs pendH&H improvedre ameya on daily ASAhemolyt ic labs negative Congestive heart failure 23634415 I50.9 EKG and Echo unrevealin gWeight overall down since Mcpherson insertionD yspnea resolvedEd elina improvedOn ly had a 1-time dose of LasixMay have all been related to obstructiv e uropathyFo llow clinically No indication for diuretic therapy at this time [id number] ANIL RM AT [address] [address] 5 10/02/2020 14:32:39 10/17/2020 16:00:00 Anemia of chronic renal failure 82302086 D63.1 H&H down from prior but overall stableAwai t rest of stool guaiacsFol low CBC Secondary hypomagnesemia 899306618 E83.42 level therapeuti c on supplement no changes needed at this time Acute-on-c hronic renal failure 584186037 N17.9 resolved with FoleyLabs stableNo changes Weight loss 63155772 R63 .4 Had only 1 dose Lasix after iatrogenic CHF from IVFNot sure if weights closer to admit were validFollo w clinically [id number] ANIL RM AT [address] [address] 5 10/06/2020 15:01:18 10/21/2020 03:48:24 Anemia in chronic kidney disease 993613630 D63.1 stool guaiacs negcontinu e ASAFollow labs [id number] ANIL RM AT [address] [address] 5 10/10/2020 19:02:32 10/30/2020 03:48:34 Chronic anemia 263250521 D64.9 suspect due to CKDGuaiacs negativeIm proved and stableNo change in plansDecre ase frequency of monitoring labs Chronic ki dney disease stage 3 031122944 N18.30 improved and baselineAK I resolved with treatment of obstructiv e uropathyDe crease frequency of lab monitoring [id number] ANIL RM AT [address] [address] 10/16/2020 21:16:04 10/22/2020 03:47:58 Dijwf-li-znxncxt renal failure 943568315 N17.9 resolved with FoleyLabs stable - clarify lab monitoring has been adjusted to less frequent [id number] ANIL RM AT [address] [address] 10/22/2020 20:38:45 12/11/2020 03:48:27 Retention of urine 854985275 R33.9 Continue indwelling FoleyClari fy with urologist if Flomax should be continued or if there is a plan for future voiding trial [id number] MD [facility] AT [address] [address] 10/28/2020 13:17:00 10/31/2020 13:07:51 Hypertensive disorder 22254351 I10 controlled with current rx, Coronary atherosclerosis 398124818 I25.10 no evidence of failure or ischemia at this time 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 continue remeron and lexapro Retention of urine 60988 4002 R33.9 presumed due to BPH, treated with flomax but failed voiding trial and urology recommends chronic mcpherson, will stop flomax Dementia 03021807 F03.90 stable at this time, slow progressio n anticipate d [id number] ANIL RM AT [address] [address] 11/28/2020 13:08:51 12/03/2020 12:21:01 Benign prostatic hyperplasia with outflow obstruction 625341190 N40.1 Chronic FoleyPrevi ously failed voiding trialsSeen by urologistn o plan for future voiding trialsMoni tor and f/u prn Chronic ki dney disease stage 3 501562229 N18.30 StableCaut ion with nephrotoxi c meds Dyslipidemia 504326548 E 78.5 Continue Lipitor 80 mg po qhsHx CVA and CAD -- no change in dose at this time [id number] MD [facility] AT [address] [address] 12/24/2020 14:45:19 12/26/2020 10:55:08 Atherosclerosis of coronary artery without angina pectoris 6973252375 33954 I25.10 continue beta priscilla, ASA, statin, no evidence of ischemia or failure Dementia 19461598 F03.90 stable at this time, slow progressio n anticipate d Glaucoma 65182320 H40.9 continue current rx Hypertensive disorder 38 957463 I10 last reading slightly elevated but at gaol 90% of recent reading so will continue with current rx, Mild major depression 87 884330 F32.0 doing well on remeron and lexapro Retention of urine 58927 4002 R33.9 presumed due to BPH, treated with flomax but failed voiding trial and urology recommends chronic mcpherson [id number] JESS Burden AT [address] [address] 02/09/2021 15:12:57 02/11/2021 12:52:38 Atherosclerosis of coronary artery without angina pectoris 7475891603 16538 I25.10 atorvastat in 80 mg qhs asa 81 mg qd zetia 10 mg qd monitor for chest pain, sob Dementia 04174489 F01.50 supportive careexpect declineno treatment Mild major depression 87 274779 F32.0 mood stablelexa pro 5 mg qdremeron 7.5 mg qhsmonitor moodpsych prn Hypertensive disorder 38 783448 I10 sbp readings 120s-150s metoprolol xl 50 mg qd asa 81 mg qd monitor bp and adjust meds prn [id number] MD [facility] AT [address] [address] 5 03/16/2021 09:15:33 03/19/2021 11:35:27 Atherosclerosis of coronary artery without angina pectoris 9905620674 01958 I25.10 continue beta priscilla, ASA, statin, no evidence of ischemia or failure Cobalamin deficiency 190 161281 E53.8 continue rx with oral B12 Dementia 66595298 F01.50 stable at this time, slow progressio n anticipate d Glaucoma 90024896 H40.9 continue current rx Hypertensive disorder 38 091794 I10 bp elevated 40% of recent readings, will up metoprolol to 100 mg daily Mild major depression 87 684957 F32.0 doing well on remeron and lexapro [id number] JESS Burden [facility] AT [address] [address] 04/28/2021 14:09:23 05/01/2021 12:11:28 Atherosclerosis of coronary artery without angina pectoris 3825752826 57249 I25.10 atorvastat in 80 mg qhs asa 81 mg qd zetia 10 mg qd monitor for chest pain, soblipid panel, CMP, CBC on 04/29 Dementia 56368048 F01.50 supportive careexpect declineno treatment Mild major depression 87 570851 F32.0 mood stablelexa pro 7.5 mg qdremeron 7.5 mg qhsmonitor moodpsych prn Hypertensive disorder 38 410446 I10 bp slightly elevated, no change metoprolol xl 100 mg qd asa 81 mg qd monitor bp and adjust meds prn Retention of urine 92562 4002 R33.9 schedule flush of mcpherson with 10 cc normal saline q Tuesday and prn discomfort will f/u with urolgist in [id number] JESS Burden [facility] AT [address] [address] 06/01/2021 13:08:44 06/03/2021 11:39:30 Dementia 60575721 F01.50 Mood stablesupp ortive careexpect declineno treatment Hypertensive disorder 38 714817 I10 BP is stableCont inue metoprolol xl 100 mg qd Continue asa 81 mg qd monitor bp and adjust meds prn Cough 91755632 R05.8 Patient c/o non-produc tive cough. Wheezing noted to bilateral lungs.Star t Albuterol 90mcg inhaler with aerochambe r - 2 puffs PO three times a day x1week and every 4 hours PRN for wheezing/S OBRobituss in - 10ml PO Q6H PRN coughmonit or for worsening sxs [id number] MD [facility] AT [address] [address] 06/03/2021 07:59:26 06/09/2021 09:37:31 Dementia 49655843 F01.50 will monitor and support as neededexpe ct declinesee meds for mixed anxiety/de pressive disorder Coronary atherosclerosis 330084927 I25.10 ASA 81 mg dailyatorv astatin 80 mg dailymetop rolol ER 100 mg dailywill monitor Cobalamin deficiency 190 701202 E53.8 B12 1000 mcg dailywill monitor Hypertensive disorder 38 966864 I10 metoprolol ER 100 mg dailywill monitor 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 escitalopr am 7.5 mg dailymirta zapine 7.5 mg at hswill monitor Hyperlipidemia 56313506 E78.49 ezetimibe 10 mg dailyatorv astatin 80 mg dailywill monitor Cough 05282092 R05.1 suspect URIconside r GERD, pneumonia, pulmonary edema if persists or worsensalb uterol HFA: 2 puffs q4h prnguaifen esin liquid prnconside r CXR, short course steroids for acute bronchitis if symptoms persist [id number] ÁNGELA Camacho AT [address] [address] 06/08/2021 12:26:22 06/10/2021 11:09:03 Dementia 69442360 F01.50 monitor and support as neededexpe ct declinesee meds for mixed anxiety/de pressive disorder Mixed anxi ety and depressive disorder 563986466 F41.8 contescita lopram 7.5 mg dailymirta zapine 7.5 mg at hsmonitor Cough 56178843 R05.1 suspect URIconside r GERD, pneumonia, pulmonary edema if persists or worsenscon t albuterol HFA: 2 puffs q4h prncont guaifenesi n liquid prnCXR done this am. Awaiting results.co nsider short course steroids for acute bronchitis if symptoms persist [id number] JESS Burden AT [address] [address] 5 06/15/2021 17:16:30 06/18/2021 13:25:15 Respiratory tract congestion and cough 558559778 R05.8 does not appear to be in distressco ntinue prn proventil and robitussin monitor for worsening sxs [id number] JESS Do AT [address] [address] 5 07/08/2021 13:00:08 07/15/2021 11:04:27 Dementia 53687565 F01.50 Appears mild-moder ate at baselineEx pect declinePsy ch eval prnsee meds for mixed anxiety/de pressive disorder Coronary atherosclerosis 033365301 I25.10 ASA 81 mg dailyatorv astatin 80 mg dailymetop rolol ER 100 mg dailywill monitor Cobalamin deficiency 190 430024 E53.8 B12 1000 mcg dailywill monitor Hypertensive disorder 38 397320 I10 metoprolol ER 100 mg dailyAppea rs well controlled will monitor Mixed anxi ety and depressive disorder 415336762 F41.8 escitalopr am 7.5 mg dailymirta zapine 7.5 mg at hsPsych eval prn Hyperlipidemia 98363736 E78.49 ezetimibe 10 mg dailyatorv astatin 80 mg dailywill monitor [id number] ÁNGELA Camacho AT [address] [address] 5 07/13/2021 11:11:32 07/15/2021 14:24:19 Dementia 86653766 F01.50 Appears mild-moder ate at baselineEx pect declinePsy ch eval prnsee meds for mixed anxiety/de pressive disorder SARS-CoV-2 682020337 U07 .1 tested positive for covid 19 on 07/12/21sta rted on paxlovid on 07/13/21 x5 daysstart mucinex po bid prnwill get labs weekly x 2 weeksencou rage fluidsprec autions in placemonit or Impacted c erumen in left ear 7740262239 866097 H61.22 impacted cerumen to left eardebrox 4 gtts to left ear bid x 3 days and flush on day 4 with warm watermonit or [id number] JESS Burden AT [address] [address] 5 07/14/2021 12:42:55 07/16/2021 11:35:40 Dementia 49021316 F01.50 supportive careExpect declinemoo d stablereme pepito 7.5 mg qhslexapro 7.5 mg qdPsych prn Coronary atherosclerosis 963996524 I25.10 ASA 81 mg qdatorvast atin 80 mg qhsmetopro lol ER 100 mg qdezetmibe 10 mg qdmonitor for sob, chest pain Hypertensive disorder 38 398225 I10 BP elevated today though most readings are SBP < 150continu e metoprolol ER 100 mg qdcontinue BP QDadjust meds prn Mixed anxi ety and depressive disorder 682421943 F41.8 mood stableesci talopram 7.5 mg qdmirtazap ine 7.5 mg qhsPsych prn Hyperlipidemia 78114787 E78.49 ezetimibe 10 mg qdatorvast atin 80 mg qdLFTs and lipid panel normal in May 2021 SARS-CoV-2 164197423 U07 .1 tested positive for covid 19 on 07/12/21sta rted on paxlovid on 07/13/21 x5 daysstart mucinex po bid prnwill get labs weekly x 2 weeksmonit or for resp, gi distress, bowelsenco urage fluidsprec autions in placemonit or [id number] Beatriz Cleaning NP [facility] AT [address] [address] 07/15/2021 16:12:32 07/17/2021 10:46:04 SARS-CoV-2 002943905 U07.1 tested positive for covid 19 on 07/12/21sta rted on paxlovid on 07/13/21 x5 dayscontin uemucinex po bid prnlabs weekly x 2 weeks to monitor renal function with history of akiencoura ge fluidsprec autions in placemonit or Impacted c erumen in left ear 6289463950 336889 H61.22 impacted cerumen to left eardebrox 4 gtts to left ear bid x 3 days and flush on day 4 with warm water started on 4/18monito r Dementia 69411661 F01.50 Appears mild-moder ate at baselineEx pect declinePsy ch eval prnsee meds for mixed anxiety/de pressive disorder [id number] Gerardo Fraire NP [facility] AT [address] [address] 5 07/16/2021 15:25:35 07/20/2021 16:15:35 SARS-CoV-2 276458372 U07.1 tested positive for covid 19 on 07/12/21sta rted on paxlovid on 07/13/21 x5 dayscontin uemucinex po bid prnlabs weekly x 2 weeks to monitor renal function with history of akiencoura ge fluidsprec autions in placemonit or and adjust interventi ons as indicated Impacted c erumen in left ear 1575175042 382279 H61.22 impacted cerumen to left eardebrox 4 gtts to left ear bid x 3 days and flush on day 4 with warm water started on r and adjust interventi ons as indicated [id number] Beatriz Cleaning NP [facility] AT [address] [address] 5 07/17/2021 14:11:19 07/21/2021 14:15:59 SARS-CoV-2 122845749 U07.1 tested positive for covid 19 on 07/12/21sta rted on paxlovid on 07/13/21 x5 dayscontin uemucinex po bid prnstart tessalon perles 100 mg po tidlabs weekly x 2 weeks to monitor renal function with history of akiencoura ge fluidsprec autions in placemonit or and adjust interventi ons as indicated Impacted c erumen in left ear 4069749846 681954 H61.22 impacted cerumen to left earspeak loudly into left ear as it is his better eardebrox 4 gtts to left ear bid x 3 days and flush on day 4 with warm water started on ito r and adjust interventi ons as indicated [id number] JESS Burden [facility] AT [address] [address] 5 07/20/2021 15:37:13 07/22/2021 11:32:23 SARS-CoV-2 305852198 U07.1 tested positive for covid 19 on 07/12/21fin ished paxlovidmu cinex po bid and q day prntessalo n perles 100 mg po tid till 07/25/21lab s weekly x 2 weeks to monitor renal function with history of akiencoura ge fluidsprec autions in placemonit or and adjust interventi ons as indicated Impacted c erumen in left ear 9499957939 751230 H61.22 pt continues with cerumen blockage in both earsrefer to ENT to flush ears [id number] ÁNGELA CamachoLEY AT [address] [address] 5 07/22/2021 19:17:12 07/27/2021 10:48:18 SARS-CoV-2 972657142 U07.1 tested positive for covid 19 on 07/12/21 and finished quarantine todayfinis hed paxlovidmu cinex po bid and q day prntessalo n perles 100 mg po tid till 07/25/21lab s okayencour age fluidsprec autions in placemonit or and adjust interventi ons as indicated Impacted c erumen in left ear 9162991193 954470 H61.22 pt continues with hearing decreasere terra to ENT to flush ears ([facility])pt states has an appt to fix his broken hearing aidemonito r [id number] Beatriz Cleaning NP [facility] AT [address] [address] 5 07/27/2021 12:31:31 07/29/2021 11:03:43 SARS-CoV-2 692850034 U07.1 resolvedte sted positive for covid 19 on 07/12/21 and finished quarantine todayfinis hed paxlovidfi nished mucinex po bid and q day prn, tessalon perles 100 mg po tid till 07/25/21 Impacted c erumen in left ear 3192312033 052732 H61.22 pt continues with hearing decrease?r efer to ENT to flush ears ([facility]) only getting bulb syringe flushesit is unclear if he [facility] or a pcpsocial work consulted to help with care as it is not clear if james garber is a specialist or pcp per wifeluther g aides fixed per wifecontin ue debrox 5 gtts to left ear twice today and then bid until july 30 then send to [facility] for fu or flush [place].monit [place] [id number] ÁNGELA Camacho AT [address] [address] 07/31/2021 11:58:04 08/03/2021 14:03:21 Impacted cerumen in left ear 9122144722 340109 H61.22 pt hearing improved todayhe follows at the CT for his increased cerumen with hearing loss and hearing aidshad cerumen removed at CT with drill on 07/30 and hearing is improvedde brox 4 gtts to each ear bid x 3 days and flush on day 4 with warm water monthly start on 09/08/21app t to fu with Dr. Randy almaguer at CT on 11/11/21 and needs flushing prior which will coincide with abovemonit or [id number] MD [facility] AT [address] [address] 5 08/12/2021 07:36:17 08/17/2021 12:26:10 Coronary atherosclerosis 206941752 I25.10 ASA 81 mg dailyatorv astatin 80 mg dailymetop rolol ER 100 mg dailywill monitor Cobalamin deficiency 190 124740 E53.8 B12 1000 mcg dailywill monitor Hypertensive disorder 38 464414 I10 metoprolol ER 100 mg dailywill monitor Mixed hyperlipidemia 267 069595 E78.2 ezetimibe 10 mg dailyatorv astatin 80 mg dailywill monitor Mixed anxi ety and depressive disorder 677553440 F41.8 escitalopr am 7.5 mg dailymirta zapine 7.5 mg at hswill monitor Osteoarthritis 337424098 M15.0 APAP 1000 mg bid and 500 mg q4h prnwill monitor SARS-CoV-2 885900158 U07 .1 tested positive 07/12/21sta rted Paxlovid 07/13/21had mild course and recoveredw ill continue to monitor Impaired cognition 65233 6002 R41.89 will monitor and support as neededexpe ct declinesee meds for mixed anxiety/de pressive disorder [id number] ÁNGELA Camacho AT [address] [address] 5 08/13/2021 14:22:15 08/17/2021 12:49:42 Dementia 33915013 F01.50 Appears mild-moder ate at baselineEx pect declinePsy ch eval prnsee meds for mixed anxiety/de pressive disorder Hypertensive disorder 38 976145 I10 pt has increased bp of 172/70 however recent bps on the high side in the 140's lately.sta rt amlodipine 2.5 mg po dailyhr low at 47 x1, usually in the 55-72 rangeconsi luis decreasing metoprolol if hr cont to be lowmonitor [id number] JESS Burden AT [address] [address] 5 08/31/2021 15:20:33 09/02/2021 14:18:06 Retention of urine 352754986 R33.9 pt is feeling fine todayconti nue flush of mcpherson with 10 cc normal saline q Tuesday and prn discomfort will f/u with urologist in pt has another episode of bladder spasms not relieved with mcpherson flush then could consider adding small [place] of oxy[place]ynin [place] hs [id number] ÁNGELA CamachoLEY AT [address] [address] 5 09/14/2021 12:00:28 09/16/2021 14:07:50 Dementia 11393258 F01.50 Appears mild-moder ate at baselineSL UMS todayExpec t declinePsy ch eval prnsee meds for mixed anxiety/de pressive disorder Hypertensive disorder 38 257606 I10 recently had amlodipine 2.5 mg po daily added in Julybps remain labile with less high bpsconside r decreasing metoprolol if hr cont to be lowhr 60 today and stablemoni tor Coronary atherosclerosis 059785808 I25.10 contASA 81 mg dailyatorv astatin 80 mg dailymetop rolol ER 100 mg dailywill monitor Cobalamin deficiency 190 621308 E53.8 contB12 1000 mcg dailywill monitor Mixed hyperlipidemia 267 125968 E78.2 contezetim johanna 10 mg dailyatorv astatin 80 mg dailywill monitor Mixed anxi ety and depressive disorder 044520546 F41.8 contescita lopram 7.5 mg dailymirta zapine 7.5 mg at hswill monitor Osteoarthritis 894245474 M15.0 contAPAP 1000 mg bid and 500 mg q4h prnwill monitor Impaired cognition 95137 6002 R41.89 will monitor and support as neededexpe ct declinesee meds for mixed anxiety/de pressive disorder Hearing loss 93201371 H9 1.93 pt is following up at [facility] he does not need debrox anymoremon itor Retention of urine 55683 4002 R33.9 reports blockage of urine yesterday resolved with new foleycontc hange mcpherson out per nsg and flush mcpherson as neededusin g leg bag and night bagmonitor urine for amt/color/ clarity [id number] ÁNGELA Camacho AT [address] [address] 5 09/16/2021 14:26:27 2021 16:24:55 Coronary atherosclerosis 174090137 I25.10 HR is 49 today and has had several low hr/asympto maticcontA SA 81 mg dailyatorv astatin 80 mg dailydecre ase metoprolol ER 100 mg daily to 50 mg ER dailywill monitor [id number] MD [facility] AT [address] [address] 5 10/21/2021 06:29:01 10/23/2021 12:03:41 Dementia 96557865 F01.50 will monitor and support as neededexpe ct declinesee meds for mixed anxiety/de pressive disorder Coronary atherosclerosis 160414795 I25.10 ASA 81 mg dailyatorv astatin 80 mg dailymetop rolol ER 50 mg dailywill monitor Cobalamin deficiency 190 131995 E53.8 B12 1000 mcg dailywill monitor Mixed anxi ety and depressive disorder 589380418 F41.8 escitalopr am 7.5 mg dailymirta zapine 7.5 mg at hswill monitor Osteoarthritis 362613627 M15.0 APAP 1000 mg bid and 500 mg q4h prnwill monitor Mixed hyperlipidemia 267 651452 E78.2 ezetimibe 10 mg dailyatorv astatin 80 mg dailywill monitor Hypertensive disorder 38 [id number] I10 metoprolol ER 50 mg dailyamlod ipine 2.5 mg dailywill monitor [id number] Beatriz Cleaning NP [place] AT [address] [address] 11/03/2021 12:22:43 11/05/2021 11:26:48 Dementia [id number] F01.50 monitor and support as needed at [facility] for mixed anxiety/de pressive disorder Coronary atherosclerosis [id number] I25.10 ASA 81 mg dailyatorv astatin 80 mg dailymetop rolol ER 50 mg daily(rece ntly decreased due to low hr in the 40s, now stable)mon itor with pcp Cobalamin deficiency 190 158833 E53.8 B12 1000 mcg dailymonit or with pcp Mixed anxi ety and depressive disorder [id number] F41.8 escitalopr am 7.5 mg dailymirta zapine 7.5 mg at hsmonitor with pcp Osteoarthritis [id number] M15.0 APAP 1000 mg bid and 500 mg q4h prnmonitor with pcp Mixed hyperlipidemia 267 268771 E78.2 ezetimibe 10 mg dailyatorv astatin 80 mg dailymonit or with pcp Hypertensive disorder 38 530338 I10 metoprolol ER 50 mg daily (hr stable in 60s after decrease)a mlodipine 2.5 mg dailybp monitor with pcp (140s /70s lately) Hyperlipidemia 13363318 E78.49 ezetimibe 10 mg qdatorvast atin 80 mg qdLFTs and lipid panel normal in May 2021monito r with pcp Age relate d macular degeneration [id number] H35.30 stablelant anoprolst sha 0.005 % 1 gtt to both eyes dailyprese rvision 1 tab bidmonitor with pcp Retention of urine [id number] 4002 R33.9 reports blockage of urine yesterday [...] Directives Directive Y: DNR, DNI, transfer to [facility] pital, no dialysis, no artificial nutrition Payers Insurance Date Sequence Insurance Name Policy Number Policy Molina Covered Member ID Molina Member ID Guarantor Name 11/03/2021 2 [place] [facility] Maik Akins Elen [id number] Maik Myrick 11/03/2021 1 [place]IC[place] B[place] [employer] Maik Akins Elen [id number] Maik Myrick 09/26/2020 1 [place]: [place] (MEDICARE REPLACEMENT PPO) [id number] Maik Elen [id number] Maik Myrick Notes Date Note Type Note [...] hospital - signed 02/27/21 JESS Burden [address], [address], [place], [address], [facility] 08/31/2021 15:29:11 09/14/2021 text/html ROS as noted in the HPI 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 Medical history is remarkable for cognitive impairment, CAD, hypertension, depression, hyperlipidemia, unsteady gait, chronic urinary retention with Mcpherson Patient had significantly reduced hearing despite hearing aides. He was seen at [facility] and patient reported that a drill was used to removed impacted cerumen with terrific improvement in his hearing. He now has a plan to go to [facility] regularly to monitor cerumen in ears. He [...] - signed 02/27/21 Beatriz Cleaning NP [address], [address], [place], [address], [facility] 09/14/2021 13:12:00 09/16/2021 text/html ROS as noted in the HPI This 85 year old male jail care resident is seen today for an [...] fine and cooperative with assessment today in [facility]. He understands this [employer] will reduce his metoprolol today. MOLST: DNR, DNI, okay to transfer to hospital - signed 02/27/21 Beatriz Cleaning NP [address], [address], [place], [address], [facility] [employer] [facility] 09/16/2021 14:37:41 10/21/2021 text/html ROS as noted in the HPI This 86 year old male jail care resident is seen today for routine [...] wheelchair in his room watching television in [facility]. He tells me that he feels good today. MOLST: DNR, DNI, okay to transfer to hospital - signed 02/27/21 Deya Krishnan MD [address], [address], [place], [address], [facility] [employer] [facility] 10/21/2021 10:58:23 11/03/2021 text/html ROS as noted in the HPI This 86 year old male jail care resident is seen today for a discharge visit. Medical history is remarkable for cognitive impairment, CAD, hypertension, depression, hyperlipidemia, unsteady gait, chronic urinary retention with Mcpherson, hx of right fractured femur healed now. Recently at [place] his pulse had been running low, so metoprolol ER decreased to 50 mg daily on 09/17/21 with good effect. Pulse now in 60s and BP in 140s/ 70s range. He had a significant cerumen impaction effecting both ears requiring multiple debrox treatments [facility] He had covid in June 2021 and recovered with a mild course. Today patient is sitting in a wheelchair in his room watching television in [place]. He tells me that he feels good and is excited to [facility] so it is closer for his . He has no complaints or concerns today. REGLA: DNR, DNI, okay to transfer to hospital - signed 02/27/21 Beatriz Cleaning NP [address], [address], [place], [address], [facility] 11/03/2021 12:38:51
== END 2025-02-27 16:30 | disposition home or self-care (01) ==
LOC: HO.HUSV 09:27
PROVIDERS: PCP Nurse Practitioner Acute Care; Visit Provider Nurse Practitioner Family
DX: N40.1 Benign prostatic hyperplasia with lower urinary tract symptoms (principal); N13.8 Other obstructive and reflux uropathy; R33.9 Retention of urine, unspecified; Q54.9 Hypospadias, unspecified
CPT/HCPCS: 99307

== ENCOUNTER 2025-03-05 05:50 | Outpatient (REF) | payer MEDICARE, SELFPAY ==
--- OUTSIDE RECORDS SUMMARY | 2025-03-05 05:54 | XMS_ITS | Clinical Summary ---
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 Name Role Phone Unavailable Primary Care Provider [...] Noted Date Diagnosed Date Carcinoma of bladder ([facility]) 08/22/2024 Overview (08/22/2024): July 30, 2021 Entered By: NATASHA HINKLE Comment: hx of bladder cancer/ obstructive uropathy- permanent mcpherson Malignant neoplasm of bladder, unspecified 08/22 Unspecified dementia, unspec ified severity, without behavioral disturbance, psychotic disturbance, mood disturbance, and anxiety ([facility]) 08/22/2024 Encounter for fitting and adjustment of [...] folate deficient Stage 3 chronic kidney disease ([facility]) 023 Overview (08/22/2024): Baseline creatinine 1.1. Mandible [...] need f/u with urology as outpatient Dementia ([facility]) 09/06/2020 Overview (08/22/2024): July 30, 2021 Entered By: NATASHA HINKLE Comment: nsg home resident at [facility] in [place]- is very supportive and prefers he have aud[place] Hyperkalemia 09/06/2020 Overview (08/22/2024): Last Assessment & Plan: Due to OLEG. On lisinopril at home. Hyperkalemia on outpatient lab, 6. Currently 5.3 -cont to monitor -hold lisinopril Depressive disorder 03/28/2020 Overview (08/22/2024): Last Assessment & Plan: Continue Lexapro and Remeron. 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 Encounters Date Type Department Care Team Description 02/06/2025 11:00 AM EST Office Visit [facility] [address] [place] [address] Darian Lu DMD 12/26/2024 11:30 AM EDT Office Visit [facility] [address] [place] [address] Darian Lu DMD from Last 3 Months [...] Date/Time Associated Diagnosis Comments DENTURE ADJUSTMENT Routine 02/06/2025 11 :00 AM EST DENTURE ADJUSTMENT Routine 12/26/2024 11 :30 AM EDT PERIODIC ORAL EVALUATION - ESTABLISHED PATIENT Routine 08/22/2024 9:15 AM EDT PROPHYLAXIS - ADULT Routine 05/12/2022 3:00 PM EST from Last 3 Months or Most Recently Relevant to Health Maintenance
[2025-03-05 06:23] LABS: Alanine Aminotransferase 9 U/L (0-40); Albumin Level 3.7 g/dL (3.5-5.0); Alkaline Phosphatase 29 U/L (39-117); Anion Gap 13 (12-20); Aspartate Amino Transferase 16 U/L (5-37); Blood Urea Nitrogen 20 mg/dL (9-16); Calcium 9.1 mg/dL (8.4-10.2); Carbon Dioxide 28 mmol/L (22-29); Chloride 106 mmol/L (96-108); Estimated Glomerular Filt Rate 56; Potassium 3.3 mmol/L (3.3-5.1); Sodium 144 mmol/L (135-145); Total Protein 6.4 g/dL (6.5-8.0)
[2025-03-05 06:27] LABS: NRBC Abs Auto 0.000 X10*3/uL (0.0-0.012); NRBC Pct Auto 0.0 /100WBC (0.0-0.2); PLT CLUMP 1; SCAN SMEAR FLAG 1
[2025-03-05 06:33] LABS: Hematocrit 38.2 % (42.0-52.0); Hemoglobin 13.2 g/dl (14.0-18.0); Imm Gran Abs Auto 0.08 X10*3/uL (0.00-0.03); Imm Gran Pct Auto 0.5 % (0.0-0.4); Lymphocytes Absolute Auto 1.2 X10*3/uL (1.2-4.9); MANUAL DIFF FLAG SCAN; Mean Corpuscular HGB Conc 34.6 g/dl (31.0-36.0); Mean Corpuscular Hemoglobin 33.1 pg (27.0-33.0); Mean Corpuscular Volume 95.7 fL (80.0-98.0); Red Blood Count 3.99 X10*6/uL (4.60-5.80)
[2025-03-05 06:34] LABS: Platelet Count 133 X10*3/uL (160-400); White Blood Count 15.2 X10*3/uL (4.8-10.8)
== END 2025-03-05 05:51 | disposition home or self-care (01) ==
LOC: HO.HSH3E 05:50
PROVIDERS: Visit Provider Nurse Practitioner
DX: Z13.89 Encounter for screening for other disorder (principal)
CPT/HCPCS: 36415; 80053; 85025

== ENCOUNTER 2025-03-06 15:56 | Inpatient (IN) | payer MEDICARE, SELFPAY ==
--- NOTE | ~2025-03-06 | CT_ITS ---
CLINICAL HISTORY: Fall on Anticoagulants CT head without contrast Comparison: CT/SR - CT HEAD WITHOUT IV CONTRAST STROKE - 12/31/23 10:23 EDT Findings: No intra-axial mass, midline shift, hydrocephalus, or acute hemorrhage. There is atrophy. There are nonspecific bilateral supratentorial white matter hypodensities most suggestive of chronic small-vessel ischemic changes. Atherosclerotic vascular disease. Minimal bilateral basal ganglia calcifications. There is no sinus or mastoid fluid. The orbits are unremarkable. No acute skull fracture. IMPRESSION: 1. No acute intracranial findings. 2. Stable nonacute findings as described. This document has been electronically signed by: Andria Winn MD on 03/06/2025 20:35:38
--- NOTE | ~2025-03-06 | CT_ITS ---
CLINICAL HISTORY: Fall on Anticoagulants CT abdomen and pelvis with contrast Comparison: None provided Findings: Examination limited by diffuse artifact. Significantly elevated left hemidiaphragm with adjacent pulmonary opacities, minimal left pleural effusion and mild right basilar opacities. Multiple small gallstones and sludge in the gallbladder. No biliary ductal dilatation. Within limitations of the artifact no focal hepatic or splenic abnormality. Pancreas is atrophic. Adrenal glands are normal. 3.4 cm cortical cyst of the upper pole of the left kidney. Bilateral renal calcifications likely vascular in nature. No ureteral stones and no hydronephrosis or hydroureter. No perinephric fluid. No bowel obstruction, pneumoperitoneum, or pneumatosis. No free fluid. Normal appendix. Suprapubic cystostomy with balloon in the urinary bladder with moderate urine in the bladder. Inferior posterior bladder calcifications could either represent small stones in the bladder or posterior wall calcifications. No inflammatory changes adjacent to the urinary bladder. Prostate within normal limits in size. Atherosclerotic vascular disease with no aneurysm of the abdominal aorta. No acute fracture. Multilevel significant degenerative changes in the spine. Previous internal fixation of right proximal femur. Degenerative changes bilateral hips. Diffuse demineralization. Healed lower right rib fractures. IMPRESSION: 1. No acute trauma related findings in the abdomen pelvis. 2. Significantly elevated left hemidiaphragm with adjacent pulmonary opacities. 3. Suprapubic cystostomy with moderate urine in the bladder in posterior calcifications either small stones in the bladder or posterior wall calcifications. 4. Cholelithiasis and sludge in the gallbladder. 5. Additional nonacute findings as described. This document has been electronically signed by: Andria Winn MD on 03/06/2025 21:08:22
--- NOTE | ~2025-03-06 | XR_ITS ---
EXAMINATION: XR CHEST CLINICAL INFORMATION: sob COMPARISON: 03/09/2025. TECHNIQUE: Frontal view of the chest was obtained. FINDINGS: Stable enlargement of the cardiac silhouette. Aortic mural calcifications. Vascular fullness of the hilar regions bilaterally, unchanged. Compared with 03/09/2025, there has been partial clearing of the right base. Streaky opacities throughout the left lung, and left base remain unchanged. Stable blunting of the left costophrenic sulcus suggesting tiny effusion. Stable left hemidiaphragmatic elevation with volume loss of the left lung. No focal osseous or soft tissue abnormality. There is lucency surrounding the screw present in the right scapula. This suggests loosening. XR/XR chest 1V IMPRESSION: Compared with the prior recent exam, improved aeration of the right base. Remainder the examination is unchanged. See above. Electronically signed by: Mikel Peterson MD 03/11/2025 09:06 AM WILL
--- NOTE | ~2025-03-06 | XR_ITS ---
CLINICAL HISTORY: Low sats,sob 1 view chest x-ray Comparison: CT/REG/SR - CT CHEST W IV CON - 03/06/25 18:50 EST CR/SR - XR CHEST 1 VIEW - 12/31/23 15:06 EDT Findings: Lung volumes are low with bibasilar atelectasis and possible right lower lobe consolidation. Cardiomediastinal silhouette is stable. No acute fracture. IMPRESSION: Low lung volumes with bibasilar atelectasis and possible right lower lobe consolidation. This document has been electronically signed by: Parish Rodriguez MD on 03/09/2025 11:23:54
--- NOTE | ~2025-03-06 | CT_ITS ---
CLINICAL HISTORY: Fall on Anticoagulants CT chest with contrast Comparison: CT/REG/SR - CT CHEST WITHOUT IV CONTRAST - 01/12/23 14:29 EDT Findings: The heart is normal size. No pericardial effusion. Coronary artery disease. Atherosclerotic vascular disease with no aneurysm of the thoracic aorta. Significantly elevated left hemidiaphragm with adjacent pulmonary opacities likely compressive atelectasis although pneumonia not entirely excluded. Minimal left pleural effusion. No pneumothorax. Mild right basilar pulmonary opacities likely atelectasis. Thyroid and thoracic esophagus within normal limits. Images of upper abdomen demonstrate cholelithiasis and sludge in the gallbladder, left renal upper pole cyst in renal calcifications likely vascular in nature. No acute fracture. Deformities of right 8th and 9th ribs posterolaterally consistent with healed fractures. Significant multilevel degenerative changes in the thoracic spine calcification of the anterior longitudinal ligament. Severe degenerative changes in bilateral shoulders. IMPRESSION: 1. Significantly elevated left hemidiaphragm with adjacent pulmonary opacities likely compressive atelectasis. Pneumonia not entirely excluded. 2. Minimal left pleural effusion. No pneumothorax. 3. Healed right 8th and 9th rib fractures. No acute fracture. 4. Additional nonacute findings as described. This document has been electronically signed by: Andria Winn MD on 03/06/2025 20:51:01
--- NOTE | ~2025-03-06 | CT_ITS ---
CLINICAL HISTORY: Fall on Anticoagulants CT cervical spine without contrast Comparison: CT/SR - CT CERVICAL SPINE WITHOUT IV CONTRAST - 10/16/2023 01:48 PM EDT Findings: Cervical alignment is maintained. Vertebral body height is maintained. No acute fracture in the cervical spine. Craniocervical junction is intact. Multilevel advanced degenerative disc disease in the facet arthropathy. Prevertebral soft tissues within normal limits. Atherosclerotic vascular disease. Linear opacity left lung base may represent subsegmental atelectasis. Right lung bases clear. IMPRESSION: 1. No acute fracture or subluxation in the cervical spine. 2. Multilevel significant degenerative changes and additional nonacute findings as described. This document has been electronically signed by: Andria Winn MD on 03/06/2025 20:37:55
[2025-03-06 16:15] VITALS: BP 140/60; BP 146/62; PULSE 77; RESP 18; TEMP 36.8; O2SAT 99; BMI 22.8
--- NOTE | 2025-03-06 16:31 | ECG_ITS ---
Test Reason : fall Blood Pressure : */* mmHG Vent. Rate : 79 BPM Atrial Rate : * BPM P-R Int : * ms QRS Dur : 72 ms QT Int : 348 ms P-R-T Axes : * -25 -17 degrees QTcB Int : 399 ms Normal sinus rhythm with Premature ventricular complexes Low voltage QRS Inferior infarct , age undetermined Abnormal ECG When compared with ECG of 31-Dec-2023 10:57, Premature ventricular complexes is now Present Inferior infarct is now Present Referred By: Generic ED Physician Electronically Signed By: PAUL MAYBERRY MD
[2025-03-06 17:11] LABS: MANUAL DIFF FLAG NO
--- NOTE | 2025-03-06 17:11 | ED.FALL ---
HPI - Fall General Chief Complaint: Fall Stated Complaint: Unwit fall SNF unkn HS& LOC +eliquis & Collar 88RA Time Seen by Provider: 03/06/25 16:33 History of Present Illness ED Provider: Alexus Garcia NP HPI Narrative: 9-year-old male medical history significant for hypertension, chronic kidney disease, CHF, CAD, chronic atrial fibrillation anticoagulated on Eliquis, dementia, mood disturbance, COPD, hyperlipidemia, anemia, presents to the ED via EMS from the [facility] [place] with chief complaint of an unwitnessed fall. The patient reports that he was getting out of his wheelchair, going to the bed when he tripped and fell onto the right side, striking his head on the ground. He denies any LOC. Denies any headache. No dizziness, lightheadedness. Denies any neck pain. He is endorsing discomfort to the right anterior ribs. No difficulty with breathing, shortness of breath, abdominal pain. No chest pain or pressure. The patient is currently being treated for pneumonia, he is on Augmentin orally at his facility. He was also recently placed on oxygen. He reports cough, nonproductive. No nausea or vomiting, urinary complaints. Patient is alert and oriented to person, place, and mildly disoriented to time. He is able to provide most of his medical history. Related Data Home Medications ?Medication ?Instructions ?Recorded ?Confirmed atorvastatin 80 mg tablet 40 mg PO BEDTIME 03/25/20 02/27/25 ezetimibe 10 mg tablet 10 mg PO DAILY 03/25/20 02/27/25 latanoprost 0.005 % eye drops 1 drp ophthalmic (eye) DAILY 07/03/20 02/27/25 vitamins A,C,P-debn-dzfbue 2,148 1 tab PO BID 07/03/20 02/27/25 mcg-113 mg-45 mg-17.4 mg tablet (PreserVision AREDS) acetaminophen 325 mg tablet 650 mg PO Q6H PRN pain/ fever 08/06/22 02/27/25 albuterol sulfate 90 mcg/actuation 2 puff inhalation Q4H PRN Wheezing 08/06/22 02/27/25 aerosol inhaler (ProAir HFA) amlodipine 10 mg tablet 10 mg PO DAILY 08/06/22 02/27/25 cyanocobalamin (vitamin B-12) 2,000 mcg PO DAILY 08/06/22 02/27/25 1,000 mcg tablet escitalopram oxalate 5 mg tablet 5 mg PO DAILY 08/06/22 02/27/25 hydrochlorothiazide 25 mg tablet 25 mg PO DAILY 08/06/22 02/27/25 magnesium oxide 400 mg PO DAILY 08/06/22 02/27/25 metoprolol succinate 50 mg 50 mg PO DAILY 08/06/22 02/27/25 tablet,extended release 24 hr folic acid 1 mg tablet 1 mg PO DAILY 09/10/22 02/27/25 ascorbic acid (vitamin C) 1,000 mg 500 mg PO DAILY 03/09/23 02/27/25 tablet methenamine hippurate 1 gram tablet 1 g PO BID 03/09/23 02/27/25 cholecalciferol (vitamin D3) 25 25 mcg PO DAILY 12/03/23 02/27/25 mcg (1,000 unit) tablet potassium chloride 20 mEq 20 meq PO DAILY 12/03/23 02/27/25 tablet,extended release Previous Rx's ?Medication ?Instructions ?Recorded apixaban 2.5 mg tablet (Eliquis) 2.5 mg PO BID #60 tabs 01/17/23 docusate sodium 100 mg capsule 100 mg PO BID #60 caps 01/17/23 ceftriaxone 1 gram intravenous 1 g IV Q24H 11 days 12/06/23 solution albuterol sulfate 90 mcg/actuation 2 inh inhalation Q4-6H PRN 12/31/23 breath activated powder inhaler shortness of breath or wheezing #1 ea doxycycline hyclate 100 mg capsule 100 mg PO BID 10 days #20 caps 12/31/23 Allergies Allergy/AdvReac Type Severity Reaction Status Date / Time lisinopril Allergy Unknown Verified 03/06/25 16:17 Review of Systems Review of Systems: ROS is otherwise negative unless mentioned in HPI. [facility] Past Medical History Medical History Mucus plugging of bronchi Respiratory failure with hypoxia and hypercapnia Atelectasis of left lung BPH (benign prostatic hyperplasia) Frequent falls On beta priscilla at home Overweight (BMI 25.0-29.9) Depression Urothelial carcinoma of bladder Vitamin B12 deficiency Vitamin D deficiency GERD without esophagitis Anemia Primary osteoarthritis, right shoulder Osteoarthritis of both knees Chronic kidney disease, stage III (moderate) Impaired fasting glucose Elevated liver enzymes Subdural hematoma Benign essential hypertension Pure hypercholesterolemia Coronary artery disease Surgical History History of tonsillectomy History of transurethral resection of bladder tumor (TURBT) History of hip surgery History of transurethral resection of prostate History of shoulder surgery Family History Family History Father CVD (cardiovascular disease) Mother Hypertension Social History Social History Household Members: Other Housing: Detention Housing Other:: [facility] Are you a primary acute care surgeon to a significant other at home: No Do you presently have visiting nurse or other home services: No Alcohol intake: former Patient Tobacco Use Status: Former Tobacco user Advance Directives: Yes Advance Directives on File: Yes Advance Directives Date on File: 08/18/22 service: Yes Physical Exam Exam: Exam: Nursing notes and vital signs reviewed. Constitutional: Well-appearing, NAD. Alert. Oriented X3. Eyes: EOMI. ENT: Pharynx normal. Neck: Normal inspection. Neck supple. No c-spine tenderness, ROM limited due to cervical collar. Thorax: Tenderness to palpation over the right anterior ribs. CVS: Irregular reart rate and rhythm. Pulses normal. Respiratory: No respiratory distress. Breath sounds normal. Abdomen: Soft and nontender. Skin: Skin warm and dry. Normal skin color. Extremities: No lower extremity edema. Neuro: Oriented X 3. No motor deficit. Vital Signs: Vital Signs: Last Vital Signs Temp 99.9 F 03/06/25 22:08 Pulse 95 03/06/25 22:08 Resp 20 03/06/25 22:08 BP 128/64 03/06/25 22:08 Pulse Ox 91 L 03/06/25 22:08 O2 Del Method Nasal Cannula 03/06/25 22:08 O2 Flow Rate 2 03/06/25 22:08 Oxygen Flow Rate 2 03/06/25 16:15 BMI result Body Mass Index 22.8 Medications Administered Generic Name Dose Route Start Last Admin Trade Name Freq PRN Reason Stop Dose Admin Ceftriaxone Sodium 1 gm/ 50 mls @ 100 mls/hr 03/06/25 22:27 03/06/25 22:41 Sodium Chloride IV 03/06/25 22:56 100 mls/hr ONCE ONE Administration Discontinued Medications Generic Name Dose Route Start Last Admin Trade Name Cabrera PRN Reason Stop Dose Admin Azithromycin 500 mg 03/06/25 22:27 03/06/25 22:41 Azithromycin 500 Mg Tablet PO 03/06/25 22:28 500 mg ONCE ONE Administration Sodium Chloride 1,000 mls @ 999 mls/hr 03/06/25 16:48 03/06/25 18:25 Ns IV 03/06/25 17:48 Infused .Q1H1M ONE Infusion Medical Decision Making Medical Decision Making [facility] Narrative: Upon my initial assessment of this patient, he arrives via EMS in a cervical collar. He experienced an unwitnessed fall with head strike. Per his report there was no LOC. Given he is on anticoagulants, we will proceed with CT imaging of the head, neck, chest, abdomen and pelvis. He does have history of CKD, though it appears baseline creatinine is around 1.2. He did have recent labs outpatient on 03/05/2025, yesterday, at which time the creatinine level was 1.23. His white blood cell count however was concerning with slight elevation at 15.2, though likely due to underlying pneumonia. He is on 2 L nasal cannula oxygen, appears to be maintaining saturations with this level (99% on 2L NC). Plan to obtain labs, EKG, administer a fluid bolus given the contrast study and obtain matthew scan imaging and reassess. 10:30 PM: I reviewed his lab work today in comparison to yesterday, leukocytosis significantly improved on 13 comparison to 15 yesterday. Any appears to be baseline, no significant abnormality. Given the fall, he had matthew scan imaging of the head, neck which is reassuring, and CT imaging of the chest, abdomen and pelvis. This does show evidence of an elevated left hemidiaphragm and pulmonary opacities, but pneumonia can not be entirely excluded. He is being treated with Augmentin outpatient for pneumonia. I considered discharging home given the outpatient therapy showed some improvement, however the patient was noted to have significant episodes of hypoxia by nursing staff into the 70s when lying flat. He does appear to be short of breath though is mildly agitated. We will send blood cultures, as well as administer IV antibiotics and admit to the hospital for further management given he has an elevated curb 65 score (3, extreme severity). Urinalysis is pending, obtained from his suprapubic mcpherson. 10:50 PM: Urinalysis does show evidence of infection. This is likely creating some generalized weakness as well creating the fall areas today. Patient is agreeable to admission plan. Signed out to hospitalist. Differential Diagnosis Differential Diagnoses: The differential diagnosis associated with the presentation includes Intracranial hemorrhage, hemothorax, pneumothorax, intra-abdominal or intrathoracic bleeding or trauma, rib fracture, cervical malalignment or fracture Admission/Observation Consideration of admission/observation: Escalation of care including admission/observation considered Lab Data MDM Lab Attestation statement: I reviewed the patient's lab results. 03/06/25 17:05 03/06/25 17:05 Labs: Lab Results 03/06/25 03/06/25 Range/Units 17:05 22:24 WBC 13.1 H (4.8-10.8) X10*3/uL RBC 4.18 L (4.60-5.80) X10*6/uL Hgb 13.7 L (14.0-18.0) g/dl Hct 39.7 L (42.0-52.0) % MCV 95.0 (80.0-98.0) fL MCH 32.8 (27.0-33.0) pg MCHC 34.5 (31.0-36.0) g/dl RDW 12.2 (11.0-16.0) % Plt Count 193 D (160-400) X10*3/uL MPV 10.1 (9.4-12.4) fL Immature Gran % (Auto) 0.8 H (0.0-0.4) % Neut % (Auto) 80.6 H (45-73) % Lymph % (Auto) 6.3 L (20-40) % Amelia % (Auto) 10.4 (2-11) % Eos % (Auto) 1.5 (0-4) % Baso % (Auto) 0.4 (0-2) % Lymph # (Auto) 0.8 L (1.2-4.9) X10*3/uL Amelia # (Auto) 1.4 H (0.1-1.2) X10*3/uL Eos # (Auto) 0.2 (0.0-0.4) X10*3/uL Baso # (Auto) 0.1 (0.0-0.2) X10*3/uL Abs Immat Gran (auto) 0.11 H (0.00-0.03) X10*3/uL Absolute Neuts (auto) 10.6 H (2.0-8.3) x10*3/uL Absolute Nucleated RBC 0.000 (0.0-0.012) X10*3/uL Nucleated RBC % (auto) 0.0 (0.0-0.2) /100WBC Hold Purple Top SEE NOTE Sodium 142 (135-145) mmol/L Potassium 4.0 D (3.3-5.1) mmol/L Chloride 104 (96-108) mmol/L Carbon Dioxide 26 (22-29) mmol/L Anion Gap 16 (12-20) BUN 25 H (9-16) mg/dL Creatinine 1.37 (0.5-1.4) mg/dL Estim Creat Clear Calc 36.9 Estimated GFR 49 Random Glucose 125 H (60-115) mg/dL Calcium 9.7 D (8.4-10.2) mg/dL Total Bilirubin 0.8 (0.0-1.0) mg/dL AST 29 (5-37) U/L ALT 14 (0-40) U/L Alkaline Phosphatase 32 L (39-117) U/L Total Protein 7.5 (6.5-8.0) g/dL Albumin 4.1 (3.5-5.0) g/dL Urine Color Yellow Urine Appearance Turbid Urine pH 8.5 (5.0-9.0) Ur Specific [place] 1.025 (1.005-1.025) Urine Protein 100 (2+) H (Neg-Trace) mg/dL Urine Glucose (UA) Negative (Negative) mg/dL Urine Ketones Trace (Negative) mg/dL Urine Blood Large (3+) H (Negative) Urine Nitrite Negative (Negative) Ur Leukocyte Esterase Moderate (2+) H (Negative) Urine RBC >20 H (0-2) /HPF Urine WBC 21-50 H (0-5) /HPF Ur Squamous Epith Cells 0-2 (0-2) /HPF Calcium Oxalate Crystal Present Urine Bacteria 1+ (None Seen) Hyaline Casts 3-5 (0-2) /LPF Independent Interpretation I performed an independent interpretation of an: EKG Interpretation: Rate: 79 Rhythm: Afib [place]: --/-25/-17 Normal P waves. Normal SHANNON. Normal QRS complex. ST T wave : no dep, elev qTC: 399 prior studies:similar The study has been interpreted contemporaneously by me. Radiology Impression Discussion of test interpretation with radiology: I have reviewed the radiologist's reading. Radiologist Impression: CT Chest tIMPRESSION: 1. Significantly elevated left hemidiaphragm with adjacent pulmonary opacities likely compressive atelectasis. Pneumonia not entirely excluded. 2. Minimal left pleural effusion. No pneumothorax. 3. Healed right 8th and 9th rib fractures. No acute fracture. 4. Additional nonacute findings as described. CT Cervical Spine IMPRESSION: 1. No acute fracture or subluxation in the cervical spine. 2. Multilevel significant degenerative changes and additional nonacute findings as described. CT Head IMPRESSION: 1. No acute intracranial findings. 2. Stable nonacute findings as described. CT Abdomen/Pelvis IMPRESSION: 1. No acute trauma related findings in the abdomen pelvis. 2. Significantly elevated left hemidiaphragm with adjacent pulmonary opacities. 3. Suprapubic cystostomy with moderate urine in the bladder in posterior calcifications either small stones in the bladder or posterior wall calcifications. 4. Cholelithiasis and sludge in the gallbladder. 5. Additional nonacute findings as described. Independent Historian Clinical information obtained from an independent historian. History obtained from or confirmed by: EMS External Record Review External record reviewed: Outpatient record ([facility]) and Prior outpatient labs (from yesterday) Chronic Conditions Patient?s care impacted by: Diabetes, Hypertension and Other (Dementia) Social Determinants Patient?s care significantly limited by Social Determinants of Health including: Problems related to primary support group Discharge Plan Discharge Clinical Impression: Fall, Pneumonia, Generalized weakness Patient Disposition: Admitted As Inpatient Print Language: Nigerien
[2025-03-06 17:16] LABS: Hematocrit 39.7 % (42.0-52.0); Hemoglobin 13.7 g/dl (14.0-18.0); Imm Gran Abs Auto 0.11 X10*3/uL (0.00-0.03); Imm Gran Pct Auto 0.8 % (0.0-0.4); Lymphocytes Absolute Auto 0.8 X10*3/uL (1.2-4.9); Mean Corpuscular HGB Conc 34.5 g/dl (31.0-36.0); Mean Corpuscular Hemoglobin 32.8 pg (27.0-33.0); Mean Corpuscular Volume 95.0 fL (80.0-98.0); NRBC Abs Auto 0.000 X10*3/uL (0.0-0.012); NRBC Pct Auto 0.0 /100WBC (0.0-0.2); Platelet Count 193 X10*3/uL (160-400); Red Blood Count 4.18 X10*6/uL (4.60-5.80); White Blood Count 13.1 X10*3/uL (4.8-10.8)
[2025-03-06 17:29] LABS: Alanine Aminotransferase 14 U/L (0-40); Albumin Level 4.1 g/dL (3.5-5.0); Alkaline Phosphatase 32 U/L (39-117); Anion Gap 16 (12-20); Aspartate Amino Transferase 29 U/L (5-37); Blood Urea Nitrogen 25 mg/dL (9-16); Calcium 9.7 mg/dL (8.4-10.2); Carbon Dioxide 26 mmol/L (22-29); Chloride 104 mmol/L (96-108); Creatinine Clr Calc Pharmacy 36.9; Estimated Glomerular Filt Rate 49; Potassium 4.0 mmol/L (3.3-5.1); Sodium 142 mmol/L (135-145); Total Protein 7.5 g/dL (6.5-8.0)
[2025-03-06 18:39] VITALS: BP 131/64; PULSE 79; RESP 18; TEMP 36.8; O2SAT 95
[2025-03-06 20:00] VITALS: BP 97/52; PULSE 82; RESP 16; TEMP 36.5; O2SAT 95
--- NOTE | 2025-03-06 21:14 | PC.NURSE ---
RN spoke to ALEX Youngblood from [facility] wanting update on pt. RN informed her that both ct scans of head and cervical spine were negative. RN stated that pt was sent in for R flank pain- RN stated to her per EMS triage, flank pain was not stated. Pt denies any flank pain. Provider did order a ct of the ABD/Pelvis- waiting for results.
[2025-03-06 22:08] VITALS: BP 128/64; PULSE 95; RESP 20; TEMP 37.7; O2SAT 91
[2025-03-06 22:33] LABS: Appearance Urine Turbid; Glucose Urine UA Negative (Negative); PH 8.5 (5.0-9.0); Specific Gravity - Urine 1.025 (1.005-1.025); UMIC TRIGGER UACC YES
--- NOTE | 2025-03-06 22:37 | PC.NURSE ---
Pt felt warm to touch, has rectal temp of 99.9 F. Pt noted to be tachypneic, wheezy and O2 drops to 70s while laying flat on 2L. spO2 improves to 90s when pt is sat upright. Provider notified. Plan for additional labs.
[2025-03-06 22:47] LABS: UACC Culture Trigger YES
--- NOTE | 2025-03-06 23:02 | PM.IMHP ---
History of Present Illness Date of Service: 03/06/25 Attending physician on admission: Mike Vang Chief Complaint: report pf fall on AC Patient is an 89-year-old male with history of dementia, hypertension, hyperlipidemia, chronic kidney disease stage IIIA, heart failure, CAD, AFib on Eliquis, bladder cancer with suprapubic catheter last changed 03/06/2025, UTI (klebsiella, VRE, Pseudomonas), osteoarthritis, glaucoma, mood disturbance, anemia, hyperlipidemia, COPD currently resides at the [facility] in [place] and there was a complaint of a fall that was unwitnessed. Patient noted to be on anticoagulation and patient was sent into the ED for further evaluation. Currently patient is having trouble giving any specifics related to the fall and had no idea he was currently in the hospital. According to the ED provider's note patient initially stated he was getting out of his wheelchair, going to the bed when he tripped and fell on the right side striking his head on the ground. Patient does have a small abrasion on the left upper frontal area of the skull. At the time patient denied any LOC. Patient was endorsing discomfort to the right anterior ribs. Patient was already being [facility] for [facility] and currently came in on Augmentin. Patient recently started using oxygen as well. Patient is not currently alert and orientated to place and time. Workup in the ED included head CT and cervical spine CT both negative for acute findings with chronic not urgent or nonacute findings. CT of the chest shows a significantly elevated left hemidiaphragm with pulmonary opacities likely secondary to compressive atelectasis. Pneumonia can not be excluded. Patient has a minimal left pleural effusion. No pneumothorax. Healed right 8th and 9th rib fractures. No acute fracture found. Patient also found to have sludge in the gallbladder. Patient denies any abdominal pain and is not having tenderness on exam. Patient does have a leukocytosis of 13.1 with stable anemia/H&H 13.7 and 39.7. Platelets 193. Electrolytes stable renal function at baseline with a creatinine clearance of 36.9 and a GFR of 49. Glucose 125. LFTs within normal limits. UA +2 protein, +3 heme, +2 leukocyte esterase, 21-50 WBCs, and +1 bacteria. Viral testing/respiratory panel pending. Noting patient has history of VRE, Klebsiella and Pseudomonas with possible underlying pneumonia with high suspicion for aspiration, starting patient on linezolid and we will continue the ceftriaxone. This was reviewed with pharmacist and was deemed appropriate treatment. Patient also on precautions. Review of Systems Review of Systems: Yes Unobtainable due to mental status (demenita agitiation ) [facility] Medical History Mucus plugging of bronchi Respiratory failure with hypoxia and hypercapnia Atelectasis of left lung BPH (benign prostatic hyperplasia) Frequent falls On beta priscilla at home Overweight (BMI 25.0-29.9) Depression Urothelial carcinoma of bladder Vitamin B12 deficiency Vitamin D deficiency GERD without esophagitis Anemia Primary osteoarthritis, right shoulder Osteoarthritis of both knees Chronic kidney disease, stage III (moderate) Impaired fasting glucose Elevated liver enzymes Subdural hematoma Benign essential hypertension Pure hypercholesterolemia Coronary artery disease Cognitive capacity: Alert to self, very confused, disorientated Family History Father CVD (cardiovascular disease) Mother Hypertension Surgical History History of tonsillectomy History of transurethral resection of bladder tumor (TURBT) History of hip surgery History of transurethral resection of prostate History of shoulder surgery Social History Household Members: Other Housing: Senior Living Housing Other:: [place] [facility] Are you a primary skin care specialist to a significant other at home: No Do you presently have visiting nurse or other home services: No Alcohol intake: former Patient Tobacco Use Status: Former Tobacco user Advance Directives: Yes Advance Directives on File: Yes Advance Directives Date on File: 08/18/22 service: Yes Ebola Risk: Travel/Contact With Anyone From Affected Area/s: No Has Patient Experienced Ebola Symptoms: No Meds Allergies Allergy/AdvReac Type Severity Reaction Status Date / Time lisinopril Allergy Unknown Verified 03/06/25 16:17 Active Medications: Current Medications Acetaminophen (Acetaminophen 325 Mg Tablet) 650 mg PO Q6H PRN PRN Reason: Pain, Mild 1-3,fever,headache Albuterol/Ipratropium (Albuterol/Iprat 2.5/0.5mg 3 Ml Ampul.Neb) 3 ml INHALE Q4H PRN PRN Reason: Shortness of Breath/Wheezing Calcium Carbonate (Calcium Carbonate 750 Mg Tab.Chew) 750 mg PO Q4H PRN PRN Reason: Heartburn Sodium Chloride (Ns) 1,000 mls @ 80 mls/hr IVCONT .[id number] IDANIA Magnesium Hydroxide (Milk Of Magnesia 30 Ml Oral.Susp) 30 ml PO DAILY PRN PRN Reason: Constipation Melatonin (Melatonin 3 Mg Tablet) 6 mg PO BEDTIME PRN PRN Reason: Insomnia Ondansetron HCl (Ondansetron Hcl 4 Mg/2 Ml Vial) 4 mg IVPUSH Q8H PRN PRN Reason: Nausea and Vomiting Polyethylene Glycol (Polyethylene Glycol 3350 17 Gm Powd.Pack) 17 gm PO DAILY PRN PRN Reason: Constipation Senna (Sennosides 8.6 Mg Tablet) 17.2 mg PO BEDTIME IDANIA Sodium Chloride (0.9 % Sodium Chloride Flush 3 Ml Syringe) 3 ml IVFLUSH QSHIFT [facility] Home Medications ?Medication ?Instructions ?Recorded ?Confirmed ?Last Taken ?Type atorvastatin 80 mg tablet 40 mg PO BEDTIME 03/25/20 02/27/25 12/03/23 08:00 History ezetimibe 10 mg tablet 10 mg PO DAILY 03/25/20 02/27/25 12/03/23 08:00 History latanoprost 0.005 % eye drops 1 drp ophthalmic (eye) DAILY 07/03/20 02/27/25 12/03/23 08:00 History vitamins A,C,X-kbph-cyffiq 2,148 1 tab PO BID 07/03/20 02/27/25 12/03/23 08:00 History mcg-113 mg-45 mg-17.4 mg tablet (PreserVision AREDS) acetaminophen 325 mg tablet 650 mg PO Q6H PRN pain/ fever 08/06/22 02/27/25 12/03/23 08:00 History albuterol sulfate 90 mcg/actuation 2 puff inhalation Q4H PRN Wheezing 08/06/22 02/27/25 12/03/23 08:00 History aerosol inhaler (ProAir HFA) amlodipine 10 mg tablet 10 mg PO DAILY 08/06/22 02/27/2512/02/24 08:00 History cyanocobalamin (vitamin B-12) 2,000 mcg PO DAILY 08/06/22 02/27/25 12/03/23 08:00 History 1,000 mcg tablet escitalopram oxalate 5 mg tablet 5 mg PO DAILY 08/06/22 02/27/25 12/03/23 08:00 History hydrochlorothiazide 25 mg tablet 25 mg PO DAILY 08/06/22 02/27/25 12/03/23 08:00 History magnesium oxide 400 mg PO DAILY 08/06/22 02/27/25 12/03/23 08:00 History metoprolol succinate 50 mg 50 mg PO DAILY 08/06/22 02/27/25 12/03/23 08:00 History tablet,extended release 24 hr folic acid 1 mg tablet 1 mg PO DAILY 09/10/22 02/27/25 12/03/23 08:00 History ascorbic acid (vitamin C) 1,000 mg 500 mg PO DAILY 03/09/23 02/27/25 12/03/23 08:00 History tablet methenamine hippurate 1 gram tablet 1 g PO BID 03/09/23 02/27/25 12/03/23 08:00 History cholecalciferol (vitamin D3) 25 25 mcg PO DAILY 12/03/23 02/27/25 12/03/23 08:00 History mcg (1,000 unit) tablet potassium chloride 20 mEq 20 meq PO DAILY 12/03/23 02/27/25 12/03/23 08:00 History tablet,extended release Physical Exam Vital Signs and Narrative: Vital Signs: Last Vital Signs Temp 99.9 F 03/06/25 22:08 Pulse 95 03/06/25 22:08 Resp 20 03/06/25 22:08 BP 128/64 03/06/25 22:08 Pulse Ox 91 L 03/06/25 22:08 O2 Del Method Nasal Cannula 03/06/25 22:08 O2 Flow Rate 2 03/06/25 22:08 Oxygen Flow Rate 2 03/06/25 16:15 BMI result Body Mass Index 22.8 Alert and orientated X1, unable to give history. Neuro: CN II-X11 intact, pt can intermittently follow commands EYES: PERRLA, EOM intact, sclera nonicteric ENT: hearing intact, uvula midline, lips moist, nares patent no epistaxis Cardiac: S1 S2 RRR, no murmur, no JVD, no edema in Lower ext Pulmonary: lungs B rhonchi througout, not clearing with cough Abdominal: BS active in all 4 quadrants, no guarding, tenderness, rebounding, soft and distended MSK: strength 3/5 upper and lower extremities : no CVA tenderness, SP catheter patent Extremities: no edema in lower extremities, PT and DP pulses palpable +2 Psych: mood anxious, judgement and insight poor Skin: new new lesions or rashes, no new wounds reported Results Labs 03/07/25 03:36 03/07/25 03:36 Labs: Laboratory Results - last 24 hr 03/06/25 03/06/25 17:05 22:24 MCV 95.0 MCH 32.8 MCHC 34.5 RDW 12.2 Plt Count 193 D MPV 10.1 Immature Gran % (Auto) 0.8 H Neut % (Auto) 80.6 H Lymph % (Auto) 6.3 L [place] % (Auto) 10.4 Eos % (Auto) 1.5 Baso % (Auto) 0.4 Lymph # (Auto) 0.8 L [place] # (Auto) 1.4 H Eos # (Auto) 0.2 Baso # (Auto) 0.1 Abs Immat Gran (auto) 0.11 H Absolute Neuts (auto) 10.6 H Absolute Nucleated RBC 0.000 Nucleated RBC % (auto) 0.0 Hold Purple Top SEE NOTE Anion Gap 16 Estim Creat Clear Calc 36.9 Estimated GFR 49 Random Glucose 125 H Calcium 9.7 D Total Bilirubin 0.8 AST 29 ALT 14 Alkaline Phosphatase 32 L Total Protein 7.5 Albumin 4.1 Urine Color Yellow Urine Appearance Turbid Urine pH 8.5 Ur Specific [place] 1.025 Urine Protein 100 (2+) H Urine Glucose (UA) Negative Urine Ketones Trace Urine Blood Large (3+) H Urine Nitrite Negative Ur Leukocyte Esterase Moderate (2+) H Urine RBC >20 H Urine WBC 21-50 H Ur Squamous Epith Cells 0-2 Calcium Oxalate Crystal Present Urine Bacteria 1+ Hyaline Casts 3-5 ECG Attestation: I personally reviewed and interpreted this ECG as follows: (NSR QTC 399 ) Prior ECG tracings: available for review Assessment and Plan (1) Fall: Qualifiers: Encounter type: initial encounter Qualified Code(s): W19.XXXA - Unspecified fall, initial encounter Status: Acute (2) UTI (urinary tract infection): Qualifiers: Hematuria presence: with hematuria Urinary tract infection type: acute cystitis Qualified Code(s): N30.01 - Acute cystitis with hematuria Status: Acute (3) PNA (pneumonia): Qualifiers: Aspiration pneumonia type: unspecified Laterality: left Lung location: lower lobe of lung Pneumonia type: aspiration pneumonia Qualified Code(s): J69.0 - Pneumonitis due to inhalation of food and vomit Status: Acute (4) Dementia with behavioral problem: Status: Acute Plan Patient is an 89-year-old male with history of dementia, hypertension, hyperlipidemia, chronic kidney disease stage IIIA, heart failure, CAD, AFib on Eliquis, bladder cancer with suprapubic catheter last changed 03/06/2025, UTI (klebsiella, VRE, Pseudomonas), osteoarthritis, glaucoma, mood disturbance, anemia, hyperlipidemia, COPD currently resides at the [facility] in [place] and there was a complaint of a fall that was unwitnessed. Patient noted to be on anticoagulation and patient was sent into the ED for further evaluation. Patient does not present with evidence of sepsis on admission. Patient being admitted for the following medical problems: Status post fall unwitnessed on anticoagulation PT eval requested Fall preventions in place CT of the head and CT of the cervical spine negative for acute findings Small superficial abrasion to the left frontal area of the skull, stable UTI with history of Klebsiella, VRE and Pseudomonas/ suprapubic catheter (secondary to Bladder CA HX) Starting patient on ceftriaxone and linezolid (reviewed with pharmacist) Patient placed on precautions noting the VRE Suprapubic catheter changed on 03[facility]06/[facility] Pneumonia previously diagnosed with treatment initiated/ suspect aspiration Aspiration precautions in place Patient currently on ceftriaxone and linezolid (see above for UTI) Incentive spirometry as tolerated Oxygen via nasal cannula, patient recently started using oxygen at the [facility], wean as tolerated Speech therapy eval requested NPO until cleared Hypertension Once med rec completed continue home medications to include amlodipine and HCTZ Cardiac low-salt diet Hyperlipidemia Continue statin once med rec completed LFTs are stable AFib Continue Eliquis and metoprolol once med rec completed Telemetry Advanced stage dementia Patient required IM Zyprexa due to behavioral concerns and agitation DVT prophylaxis: Eliquis Med rec pending DNR DNI status Patient require at least a 2 midnight stay for IV antibiotics for pneumonia and UTI with workup for possible aspiration. Quality Stroke Does the patient have a stroke diagnosis?: No Reason for No Anti-thrombotic by Day Two: N/A - Med Ordered VTE Prior VTE?: No VTE Risk Level:: Medical - moderate - high VTE Device Contraindication: N/A - Device Ordered VTE Drug Contraindication: N/A - Med Ordered
[2025-03-07] VITALS (15 sets, daily range): BP systolic 100–159; BP diastolic 55–104; PULSE 70–97; RESP 12–25; TEMP 36.4–37.8; O2SAT 92–100
[2025-03-07] MEDS: OLANZapine 10 MG VIAL 5 MG IM (00:02)
[2025-03-07 00:26] LABS: VBG HCO3 26 mmol/L (22-26); VBG O2 % Saturation 56.0 %
[2025-03-07 00:26] LABS: Venous Blood Gas Refer to POC result
--- OUTSIDE RECORDS SUMMARY | 2025-03-07 00:55 | XMS_ITS | Clinical Summary ---
Author Organization [facility] Address [address] [place] [address] [address] [place] [address] Phone Care Team Providers Care Event Marketing Specialist Name Role Phone Ramón Ortega MD Primary Care Provider [phone] Allergies Active Allergy Reactions Criticality Noted Date [...] age to complete this topic Insurance Medicare [facility] Regions 1,2,3 (VACCN) Medicare [place] Regions 1,2,3 (VACCN) Care Teams Event Marketing Specialist Relationship Specialty Start Date End Date Ramón Ortega MD [address] [place] [address] , [address] [place] [address] PCP - General Medical Oncology 01/11/23
--- OUTSIDE RECORDS SUMMARY | 2025-03-07 00:55 | XMS_ITS | Clinical Summary ---
Author Organization [employer] Address [address] [place] [address] Care Team Providers Care Funeral Arranger Name Role Phone Unavailable Primary Care Provider [...] Noted Date Diagnosed Date Carcinoma of bladder ([facility]) 08/22/2024 Overview (08/22/2024): July 30, 2021 Entered By: NATASHA HINKLE Comment: hx of bladder cancer/ obstructive uropathy- permanent mcpherson Malignant neoplasm of bladder, unspecified 08/22 Unspecified dementia, unspec ified severity, without behavioral disturbance, psychotic disturbance, mood disturbance, and anxiety ([facility]) 08/22/2024 Encounter for fitting and adjustment of [...] folate deficient Stage 3 chronic kidney disease ([facility]) 023 Overview (08/22/2024): Baseline creatinine 1.1. Mandible [...] need f/u with urology as outpatient Dementia ([facility]) 09/06/2020 Overview (08/22/2024): July 30, 2021 Entered By: NATASHA HINKLE Comment: nsg home resident at [facility] in [place]- is very supportive and prefers he have audiology and ear lavage [place] Hyperkalemia 09/06/2020 Overview (08/22/2024): Last Assessment & Plan: Due to OLEG. On lisinopril at home. Hyperkalemia on outpatient lab, 6. Currently 5.3 -cont to monitor -hold lisinopril Depressive disorder 03/28/2020 Overview (08/22/2024): Last Assessment & Plan: Continue Lexapro and Remeron. 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 Encounters Date Type Department Care Team Description 02/06/2025 11:00 AM EST Office Visit [facility] [address] [place] [address] Darian Lu DMD 12/26/2024 11:30 AM EDT Office Visit [facility] [address] [place] [address] Darian Lu DMD from Last 3 Months [...]
--- OUTSIDE RECORDS SUMMARY | 2025-03-07 00:55 | XMS_ITS | Data Portability ---
Author Organization [facility], Main Office Address [address], [address] [place] [address] Care Team Providers Care Director Customer Name Role Phone [facility] OTHER FRANCIS LUNA Primary Care Provider [phone] Assessment No assessment recorded. Plan of Treatment [...] Time Vascular dementia with behavior al disturba [facility] [id number] 9104 Active 2020 JESS Burden [address], [address], [place], [address], [facility] 12:48:00 Sleep terror disorder 20430678 Active 2020 JESS Burden [address], [address], [place], [address], [facility] 12:48:15 Hearing loss 74354774 Active 2020 JESS Burden [address], [address], [place], [address], [facility] 12:48:38 Acute posthemo rrhagic anemia 400943285 Active 2020 JESS Burden [address], [address], [place], [address], [place] [employer] [facility] 1 12:55:55 Fracture of neck of femur 2249111 Active 2020 JESS Burden [address], [address], [place], [address], [facility] [employer] [facility] 1 12:56:10 Chronic kidney disease stage 2 073018135 Completed 202012/01/2020 Removal Reason: diagosis revised CHUY ZIMMERMAN PA-C [address], [address], [place], [address], [employer] 1 14:47:13 Hyperten sive disorder 73500326 Active 2020 JESS Burden [address], [address], [place], [address], [facility] [employer] [facility] 1 12:56:54 Recurren t falls 774989716 Active 2020 JESS Burden [address], [address], [place], [address], [employer] 1 13:15:10 Mixed hyperlip idemia 604215470 Active 2020 JESS Burden [address], [address], [place], [address], [employer] 1 13:23:50 Hypoalbu minemia 779024820 Active 2020 Esvin Curriein null, [facility] 1 11:02:32 Atherosc lerosis of coronary artery without angina pectoris 62902888576 4103 Active 2020 Evsin Curriein null, [facility] [employer] [facility] 1 11:02:35 Impaired cognitio n 397116176 Active 2020 Esvin Curriein null, [facility] [employer] [facility] 1 11:02:37 Edema 436572984 Active 2020 Esvin Curriein null, [facility] [employer] [facility] 1 11:02:56 Glaucoma 13772611 Active 2020 Esvin Curriein null, [facility] [employer] [facility] 1 11:04:42 Mild major depressi on 55834448 Active 2020 Esvin Slater null, [facility] 1 11:05:39 Cobalami n deficien cy 957056804 Active 2020 Esvin Slater null, [facility] 1 11:06:28 Vitamin D deficien cy 67831253 Active 2020 Esvin Curriein null, [facility] 1 11:06:40 Dementia 24697374 Active 2020 Esvin Curriein null, [facility] 1 10:38:31 Age related macular degenera tion 672960221 Active 2020 Esvin Curriein null, [facility] 1 10:39:14 Retentio n of urine 564979003 Active 2020 Esvin Slater null, [facility] 1 09:14:20 Coronary atherosc lerosis 421331698 Active 2020 Esvin Slater null, [facility] 1 19:52:59 SARS-CoV -2 Active 2021 Beatriz Cleaning NP [address], [address], [place], [address], [facility] 2 15:12:59 Impacted cerumen in left ear 51971097492 91514 Active 2021 Beatriz Cleaning NP [address], [address], [place], [address], [facility] 2 15:30:09 Problem Notes None recorded. Medical Equipment None Reported. Allergies Allergen ID Allergen Name Allergen Category Reaction Reaction Severity Criticality Documentation Date Start Date Code Code System Note Provider Name and Address Organization Details Recorded Time 15223 lisinopri l medicatio n other severe Not available 09/23/2020 55537 RxNorm OLEG and hyper kalem ia CHUY ZIMMERMAN PA-C [address], [address], [place], [address], [facility] 1 13:15:06 Medications Not known to be on any medication Vitals Date Recorded Body height Oxygen saturation Heart rate Respiratory rate Body temperature Systolic And Diastolic Provider Name and Address Organization Details Last Updated DateTime 2 170.18 cm 97 % 55 /min 18 /min 97.6 [degF] 112/58 mm[Hg] JESS Burden [address], [facility] [address], [place], [address], [facility] 2 15:21:10 Date Recorded Body height Body mass index (BMI) Body weight Heart rate Respiratory rate Body temperature Oxygen saturation Systolic And Diastolic Provider Name and Address Organization Details Last Updated DateTime 2 170.18 cm 31.3 kg/m2 33704.4 7 g 60 /min 18 /min 97.4 [degF] 97 % 106/52 mm[Hg] Beatriz Cleaning NP [address], [facility] [address], [place], [address], [facility] 2 12:01:42 Date Recorded Body height Body mass index (BMI) Body weight Heart rate Respiratory rate Body temperature Oxygen saturation Systolic And Diastolic Provider Name and Address Organization Details Last Updated DateTime 2 170.18 cm 31.3 kg/m2 71629.4 7 g 48 /min 18 /min 97.2 [degF] 96 % 129/59 mm[Hg] Beatriz Cleaning NP [address], [facility] [address], [place], [address], [facility] 2 14:29:20 Date Recorded Body height Body temperature Oxygen saturation Heart rate Systolic And Diastolic Provider Name and Address Organization Details Last Updated DateTime 2 170.18 cm 97.8 [degF] 96 % 64 /min 106/63 mm[Hg] Deya Krishnan MD [address], [address], [place], [address], [facility] 2 06:29:20 Date Recorded Body height Body mass index (BMI) Body weight Heart rate Respiratory rate Body temperature Oxygen saturation Systolic And Diastolic Provider Name and Address Organization Details Last Updated DateTime 2 170.18 cm 31.2 kg/m2 79707.8 8 g 67 /min 18 /min 97.2 [degF] 96 % 142/72 mm[Hg] Baetriz Cleaning, [employer] [address], [address], [place], [address], [facility] 2 12:24:01 Social History Question Answer Notes LastModified by Organizat ion Details LastModified Time Tobacco Smoking Status Former Smoker Nettie Richie, GERONTOLOGY AIDE [address], [place], [address], [facility] [employer] [facility] 07/10/2020 12:45:29 Do You Have An Advance Directive? Yes DNR, DNI, Transfer To Hospital, No Dialysis, No Artificial Nutrition [email or web address] Information not available 07/10/2020 What Is Your Code Status? DNR/DNI Information not available 12/01/2020 Legal Guardian? 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 Yes HCP Invoked Information not available 07/10/2020 What Was The Date Of Your Most Recent Tobacco Screening? 11/28/2020 [email or web address] Information not available 12/01/2020 How Much Tobacco Do You Smoke? 1 PPD [email or web address] Information not available 07/10/2020 Has Tobacco Cessation Counseling Been Provided? No N/A Information not available 12/01/2020 How Many Years Have You Smoked Tobacco? 20 [email or web address] Information not available 07/10/2020 Sex: Unknown Functional Status Question Answer Note LastModified by Organizat ion Details LastModified Time Do you or have you ever used any other forms of tobacco or nicotine? No [email or web address] Information not available 12/01/2020 What is your level of alcohol consumption? None Hx heavy: 1 bottle of wine per day; not drinking since [email or web address] Information not available 12/01/2020 Do you or have you ever used smokeless tobacco? Never used smokeless tobacco [email or web address] Information not available 07/10/2020 Do you or have you ever used e-cigarettes or vape? Never used electronic cigarettes Information not available 07/10/2020 Mental Status None recorded. Family History Nothing Reported. Medical History No medical history recorded. Immunizations Vaccine Type Date Status Note Provider Nam e and Address Organization Details Recorded Time COVID-19, mRNA, LNP-S, PF, 30 mcg/0.3 mL dose 05/08/2020 completed CHUY ZIMMERMAN PA-C [address], [address], [place], [address], [facility] 12/01/2020 14:48:34 COVID-19, mRNA, LNP-S, PF, 30 mcg/0.3 mL dose 06/05/2020 completed CHUY ZIMMERMAN PA-C [address], [address], [place], [address], [facility] 12/01/2020 14:48:40 Past Encounters Encounter ID Performer Location Encounter Start Date Encounter Closed Date Diagnosis/Indication Diagnosis SNOMED-CT Code Diagnosis ICD10 Code Diagnosis IMO Codes Diagnosis Note [id number] JESS Burden AT [address] [address] 07/10/2020 12:35:42 07/16/2020 09:44:34 Fracture of neck of femur 4395819 S72.001D see hpi mechanical fall at home, [facility] at [facility] lovenox 40 mg sq qd till 08/20 oxycodone 5 mg q 6 hrs prn monitor right hip incisions f/u with ortho Acute post hemorrhagic anemia 850576211 D62 no labs in chart or dc summary available monitor cbc weekly - pending today Chronic ki dney disease stage 2 541726244 N18.2 limited paperwork from [facility] states OLEG on CKD - appears that pt's lisinopril was held at hospital avoid nephrotoxi c meds as able monitor cmp this week then bmp weekly - pending today Hypertensive disorder 38 283376 I10 bp mildly elevated lisinopril 20 mg qd - on hold til 07/12 metoprolol 25 mg bid asa 81 mg qd monitor bp and adjust meds prn 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 085894 F51.4 known hx of per lexapro 20 mg qd remeron 7.5 mg qhs gabapentin 300 mg bid per pt will wake up at night screaming psych to follow Vascular d ementia with behavioral disturbance 5471731752 20177 F01.51 per pt is forgetful will wait till pt is settled into unit to do SLUMS supportive care expect decline Hearing loss 90530554 H9 1.93 known hx of supportive care Mixed hyperlipidemia 267 753868 E78.2 zetia 10 mg qd lipitor 80 mg qhs check lipid panel once pt is LTC Recurrent falls 39675655 2 R29.6 PT OT for conditioni ng and mobility monitor for fall risk didn't think that his drinking had much to do with his falls, says they usually happened in the morning and he did not start drinking till 11 am [id number] ESVIN SLATER MD [facility] AT [address] [address] 07/11/2020 10:34:37 07/16/2020 10:27:03 Fracture of neck of femur 7493483 S72.001D continue with therapy, pain rx, DVT prophyllax is Recurrent falls 05993306 2 R29.6 will taper off gabapentin as this may predispose to falls, also reduce lexapro to 10 for same reason Macrocytic anemia 207136 05 D53.9 unclear if due to blood loss from recent surgery or other. Will give iron for a month, check B12, folate and MMA Hypertensive disorder 38 529666 I10 controlled with current rx. Will consolidat e metoprolol into a single daily dose Mixed hyperlipidemia 267 144125 E78.2 continue current rx Impaired cognition 96129 6002 R41.89 has mild to moderate impairment of cognition which is chronic. Accompanyi ng visual hallucinat ions suggestive of Lewy body dementia. can no longer care for him at home. 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 Last drink a week ago so no risk of withdrawal at this time. Continue abstinence . Has mild liver enzyme abnormalit ies which should be rechecked in a month or so Edema 346391589 R60.9 due to hypoalbumi nemia and recent surgery. No new rx needed at this time Glaucoma 66745239 H40.9 continue current rx Age relate d macular degeneration 001120773 H35.30 continue current supplement s Mild major depression 87 862185 F32.0 continue remeron, continue lexapro after dose reduction as above Cobalamin deficiency 190 923954 E53.8 continue rx Vitamin D deficiency 347 21780 E55.9 continue rx [id number] JESS Burden AT [address] [address] 07/15/2020 13:48:11 07/17/2020 12:55:19 Fracture of neck of femur 7224462 S72.001D mechanical fall at home, ORIF at [facility] lovenox 40 mg sq qd till 08/20 oxycodone 5 mg q 6 hrs prn monitor right hip incisions f/u with ortho Acute post hemorrhagic anemia 331200000 D62 now on iron check cbc weekly Chronic ki dney disease stage 2 987332766 N18.2 pt's lisinopril was held at hospital - resumed on 07/12 avoid nephrotoxi c meds as able monitor cmp this week then bmp weekly - pending today Hypertensive disorder 38 941937 I10 bp mildly elevated lisinopril 20 mg qd - on hold til 07/12 metoprolol 25 mg bid asa 81 mg qd monitor bp and adjust meds prn 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 591073 F51.4 known hx of per lexapro 10 mg qd remeron 7.5 mg qhs gabapentin taper to discontinu e per pt will wake up at night screaming psych to follow Vascular d ementia with behavioral disturbance 8622583013 74169 F01.51 per pt is forgetful will wait till pt is settled into unit to do SLUMS supportive care expect decline Hearing loss 83169685 H9 1.93 known hx of supportive care Mixed hyperlipidemia 267 448249 E78.2 zetia 10 mg qd lipitor 80 mg qhs check lipid panel once pt is LTC Recurrent falls 58663426 2 R29.6 continue PT OT monitor for fall risk didn't think that his drinking had much to do with his falls, says they usually happened in the morning and he did not start drinking till 11 am [id number] JESS Burden AT [address] [address] 07/18/2020 16:13:42 07/21/2020 16:23:47 Fracture of neck of femur 6329153 S72.001D mechanical fall at home, ORIF at [facility] lovenox 40 mg sq qd till 08/20 oxycodone 5 mg q 6 hrs prn monitor right hip incisions f/u with ortho in 4 weeks WBAT now Acute post hemorrhagic anemia 383737952 D62 now on iron and folic acid check cbc weekly Chronic ki dney disease stage 2 054528816 N18.2 pt's lisinopril was held at hospital - resumed on 07/12 avoid nephrotoxi c meds as able monitor renal function Hypertensive disorder 38 051601 I10 bp normal for his age lisinopril 20 mg qd 7 metoprolol 50 mg qd asa 81 mg qd monitor bp and adjust meds prn 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 340133 F51.4 known hx of per lexapro 10 mg qd remeron 7.5 mg qhs gabapentin off today per pt will wake up at night screaming psych to follow Vascular d ementia with behavioral disturbance 4299488351 29818 F01.51 per pt is forgetful will wait till pt is settled into unit to do SLUMS supportive care expect decline Hearing loss 29086601 H9 1.93 known hx of supportive care Mixed hyperlipidemia 267 867755 E78.2 zetia 10 mg qd lipitor 80 mg qhs check lipid panel once pt is [facility] [id number] JESS Burden AT [address] [address] 07/22/2020 15:59:01 07/24/2020 11:51:12 Fracture of neck of femur 8667400 S72.001D lovenox 40 mg sq qd till 08/20 oxycodone 5 mg q 6 hrs prn monitor right hip incisions f/u with ortho in 3 weeks WBAT now Acute post hemorrhagic anemia 323771539 D62 now on iron and folic acid check cbc weekly Chronic ki dney disease stage 2 055699315 N18.2 pt's lisinopril was held at hospital - resumed on 07/12 avoid nephrotoxi c meds as able monitor renal function Hypertensive disorder 38 509067 I10 bp normal for his age lisinopril 20 mg qd metoprolol 50 mg qd asa 81 mg qd monitor bp and adjust meds prn 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 343885 F51.4 known hx of per lexapro 10 mg qd remeron 7.5 mg qhs per pt will wake up at night screaming psych prn Vascular d ementia with behavioral disturbance 9813374486 42432 F01.51 per pt is forgetful will wait till pt is settled into unit to do SLUMS supportive care expect decline Mixed hyperlipidemia 267 343724 E78.2 zetia 10 mg qd lipitor 80 mg qhs check lipid panel once pt is [place] [id number] JESS Burden AT [address] [address] 07/24/2020 16:22:49 07/28/2020 15:46:18 Fracture of neck of femur 8104277 S72.001D lovenox 40 mg sq qd till 08/20 oxycodone 5 mg q 6 hrs prn monitor right hip incisions f/u with ortho in 3 weeks WBAT now moderate edema in RLE 2/2 sitting in wheelchair Acute post hemorrhagic anemia 893595355 D62 now on iron and folic acid check cbc weekly Chronic ki dney disease stage 2 045177801 N18.2 pt's lisinopril was held at hospital - resumed on 07/12 avoid nephrotoxi c meds as able monitor renal function Hypertensive disorder 38 390780 I10 bp normal for his age lisinopril 20 mg qd metoprolol 50 mg qd asa 81 mg qd monitor bp and adjust meds prn 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 185823 F51.4 known hx of per lexapro 10 mg qd remeron 7.5 mg qhs psych prn Vascular d ementia with behavioral disturbance 0583900361 07560 F01.51 supportive care expect decline [id number] JESS Burden AT [address] [address] 07/29/2020 14:51:03 08/01/2020 11:53:31 Fracture of neck of femur 5228804 S72.001D continue PT OT lovenox 40 mg sq qd till 08/20 oxycodone 5 mg q 6 hrs prn monitor right hip incisions f/u with ortho in 2 weeks WBAT now Acute post hemorrhagic anemia 358065004 D62 now on iron and folic acid check cbc weekly Chronic ki dney disease stage 2 463087912 N18.2 creat 1.1 on 07/24 - stable pt's lisinopril was held at hospital - resumed on 07/12 avoid nephrotoxi c meds as able monitor renal function Hypertensive disorder 38 158753 I10 bp normal for his age lisinopril 20 mg qd metoprolol 50 mg qd asa 81 mg qd monitor bp and adjust meds prn 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 423087 F51.4 known hx of per lexapro 10 mg qd remeron 7.5 mg qhs psych prn Vascular d ementia with behavioral disturbance 0024086209 30129 F01.51 supportive care expect decline [id number] JESS Burden AT [address] [address] 08/01/2020 13:45:56 08/04/2020 14:48:25 Fracture of neck of femur 6777446 S72.001D continue lovenox 40 mg sq qd till 08/20 oxycodone 5 mg q 6 hrs prn monitor right hip incisions f/u with ortho in 2 weeks WBAT now Acute post hemorrhagic anemia 046050349 D62 now on iron and folic acid check cbc weekly Chronic ki dney disease stage 2 456570090 N18.2 creat 1.1 on 07/24 - stable pt's lisinopril was held at hospital - resumed on 07/12 avoid nephrotoxi c meds as able monitor renal function Hypertensive disorder 38 435773 I10 bp normal for his age lisinopril 20 mg qd metoprolol 50 mg qd asa 81 mg qd monitor bp and adjust meds prn 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 201668 F51.4 known hx of per lexapro 10 mg qd remeron 7.5 mg qhs psych prn Vascular d ementia with behavioral disturbance 7787539324 18039 F01.51 supportive care expect decline pt will stay LTC Acute diarrhea 108248053 R19.7 will send out stool for c diff monitor for worsening stools [id number] MD [place] [place] AT [address] [address] 08/04/2020 11:20:20 08/06/2020 14:15:38 Edema 235009341 R60.9 has chronic bilateral edema but much more so on right. Will get venous US of RLE to r/o DVT. Until result available will up lovenox dose to therapeuti c level. Fracture o f neck of femur 6709556 S72.001D will stop oxycodone now [id number] JESS Burden AT [address] [address] 08/07/2020 13:17:35 08/08/2020 15:38:28 Fracture of neck of femur 1450702 S72.001D decrease back to lovenox 40 mg sq qd till 08/20 tylenol prn monitor right hip incisions f/u with ortho WBAT now pt plateaued with rehab, off rehab RLE edema 2/2 femur fracture and repair no treatment at this time for Nguyễn's cyst Acute post hemorrhagic anemia 847804734 D62 now on iron and folic acid hgb slowly improving check cbc weekly Chronic ki dney disease stage 2 231591931 N18.2 creat 0.9 on 08/07 - stable pt's lisinopril was held at hospital - resumed on 07/12 avoid nephrotoxi c meds as able monitor renal function Hypertensive disorder 38 675566 I10 bp normal for his age lisinopril 20 mg qd metoprolol 50 mg qd asa 81 mg qd monitor bp and adjust meds prn 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 343570 F51.4 known hx of per lexapro 10 mg qd remeron 7.5 mg qhs psych prn Vascular d ementia with behavioral disturbance 4422799843 98510 F01.51 supportive care expect decline pt will stay LTC [id number] MD [place] AT [address] [address] 08/26/2020 10:27:09 08/28/2020 15:48:27 Macrocytic anemia 81527678 D53.9 found to be folate deficient in addition to previous B12 deficiency , now on both supplement s. Vitamin D deficiency 347 23331 E55.9 order read 250 mcg per day which is 10,000 units, reduced to 1000 units per day Mixed hyperlipidemia 267 993222 E78.2 continue current rx Glaucoma 21062328 H40.9 continue current rx Atheroscle rosis of coronary artery without angina pectoris 7937858087 02217 I25.10 continue beta priscilla, ASA, statin, no evidence of ischemia. Has mild edema which is stable and not causing any symptoms so will not treat Mild major depression 87 446823 F32.0 continue remeron and lexapro Hypertensive disorder 38 569177 I10 controlled with current rx. Dementia 75015788 F03.90 stable at this time, slow progressio n anticipate d Age relate d macular degeneration 326210239 H35.30 continue current supplement [id number] JESS Burden [address] [address] 09/04/2020 14:23:28 09/09/2020 10:33:48 Chronic kidney disease stage 2 921894118 N18.2 will dc lisinopril recheck BMP on 09/05 and 09/08 Hypertensive disorder 38 146208 I10 bp normal for his age dc lisinopril as above metoprolol 50 mg qd asa 81 mg qd monitor bp and adjust med prn [id number] JESS Burden [address] [address] 09/09/2020 14:10:22 09/11/2020 15:27:14 Fracture of neck of femur 5126300 S72.001D healed f/u with ortho prn Acute post hemorrhagic anemia 633046721 D62 remains on folic acid 1 mg qd hgb stable btwn 9-10 monitor cbc Chronic ki dney disease stage 2 344190532 N18.2 see above avoid nephrotoxi c meds as able monitor renal function Hypertensive disorder 38 767920 I10 bp normal lisinopril on hold re-eval in 2 days metoprolol xl 50 mg qd asa 81 mg qd monitor bp and adjust meds prn Vascular d ementia with behavioral disturbance 6729336063 47145 F01.51 mood stable remeron 7.5 mg qhs lexapro 10 mg qd supportive care expect decline monitor mood, behaviors psych prn Acute kidney injury 1466 9001 N17.9 see hpi mcpherson placed in hospital recommend voiding trial in one week lisinopril on hold, re-eval in 2 days creat 1.5 on 09/09 will need f/u with DR Miguel barragan in [place] in one week pt has hx of bladder cancer Atheroscle rosis of coronary artery without angina pectoris 3514189109 87707 I25.10 atorvastat in 80 mg qhs asa 81 mg qd zetia 10 mg qd monitor for chest pain, sob [id number] JESS Burden AT [address] [address] 09/11/2020 13:18:36 09/16/2020 10:23:21 Acute kidney injury 28061875 N17.9 mcpherson placed in hospital recommend voiding trial in one week lisinopril on hold - would not resume as BP is low normal creat 1.2 on 09/10 f/u with DR Miguel barragan in [place] on 10/22 pt has hx of bladder cancer Fracture o f neck of femur 0742480 S72.001D healed f/u with ortho prn Acute post hemorrhagic anemia 282749922 D62 remains on folic acid 1 mg qd hgb stable btwn 9-10, though slightly lower on 09/10 at 8.9 continue to monitor cbc Chronic ki dney disease stage 2 769188517 N18.2 see above avoid nephrotoxi c meds as able monitor renal function Hypertensive disorder 38 736850 I10 bp low normal do not resume lisinopril metoprolol xl 50 mg qd asa 81 mg qd monitor bp and adjust meds prn Vascular d ementia with behavioral disturbance 8361781629 81661 F01.51 SLUMS 27/30 states normal but pt does have issues with insight and while essentiall y normal SLUMS pt did not understand the workings of his mcpherson, thought he was at [facility] now, has issues with insight mood stable remeron 7.5 mg qhs lexapro 10 mg qd supportive care expect decline monitor mood, behaviors psych prn Atheroscle rosis of coronary artery without angina pectoris [id number] 66118 I25.10 atorvastat in 80 mg qhs asa 81 mg qd zetia 10 mg qd monitor for chest pain, sob [id number] MD [facility] CA[facility] AT [address] [address] 09/16/2020 08:26:07 09/18/2020 12:12:41 Retention of urine 497988667 R33.9 presumed due to BPH, has been on flomax for about 10 days, time for a voiding trial. Will stop mcphreson today, reinsert if unable to void in 8 hours or if PVR > 300 cc in next few days. Chronic ki dney disease stage 2 127673270 N18.2 at his baseline Hypoalbuminemia 23045267 4 E88.09 chronic and stable Hypertensive disorder 38 356701 I10 controlled with current rx, will not resume lisinopril at this time [id number] ANIL WARD AT [address] [address] 09/17/2020 12:58:47 10/17/2020 14:56:26 Retention of urine 120751664 R33.9 --1st 2 PVRs s/p mcpherson removal acceptable --cont to monitor PVRs; if > 300 cc, reinsert mcpherson--con t Flomax 0.4mg po qhs--outpa tient f/u w/ urology 10/22/20 Macrocytic anemia 143338 05 D53.9 --H&H down minimally vs last week--poss ibly multifacto rial given pmhx--cont B12 supps for hx B12 defic & macrocytic anemia--co nt to monitor; if persists or worsens, consider stool guaiacs & additional labs Leukocytosis 356880549 D 72.829 --mild; no fever, exam neg, ROS neg--cont to monitor clinically Chronic ki dney disease stage 2 352659343 N18.2 --Cr stable at 1.2--cont routine monitoring --avoid nephrotoxi c meds [id number] ANIL RM AT [address] [address] 09/23/2020 13:13:42 10/01/2020 11:02:47 Iuypk-zm-dtqfidl renal failure 256296491 N17.9 Hx obstructiv e uropathyBl adder scan [...] impair renal functionFo llow labs Macrocytic anemia 285963 05 D53.9 Significan t dropNo cardiac/re spiratory complaints Stool guaiac x 3Continue ASA for nowNo evidence of bleeding into site of hip fractured/ c B12 since level very therapeuti c and MMA negativeFo llow labs Acute hyponatremia 70081 02 E87.1 significan t drop over past 5 daysNot on any meds that typically affect serum Daniela evidence of volume overload on exam so may be hypovolemi c hyponatrem ia and may be giving IVF if not retaining (see above) Vitamin D deficiency 347 50548 E55.9 Check level given renal impairment ; may need or be able to d/c [id number] ANIL RM AT [address] [address] 09/24/2020 12:47:44 10/01/2020 11:13:29 Acute heart failure 28835628 I50.9 Probably iatrogenic from IVF although barely got more than 1 literWeigh t up 21 lbs since earlier this month although unk if gradual or acutePt is dyspneic although with clear lungsHeart M is newLasix 20 mg po x 1Daily weights x 1 week then weeklyCons ider repeat echo Urinary tr act obstruction 4983379 N13.9 Nurse just now bladder scanned pt for 999 ml (scanner does not go higher than this)She straight cath'd him for 900 ml then 700 ml and he was still passing urineFoley catheter to gravityInc rease Flomax to 0.8 mg po qhs - start tonightRen al and bladder u/s done during recent hospitaliz ation unrevealin [facility] ed to f/u Miguel i for cystoscopy due to hx bladder caU/A pend and will be reviewed when available as acute UTI can also cause retention Acute hyponatremia 23010 02 E87.1 Serum osm, Urine osm/Na/Cr pendProbab ly related to intrinsic AKIdivalen ts pend for tomorrow Acute post hemorrhagic anemia 852971315 D62 Stool guaiacs pendCBC pend for am although may be hemodilute d from IVF Vitamin D deficiency 347 54200 E55.9 Level pend and will be reviewed when available [id number] NAIL RM AT [address] [address] 09/25/2020 10:54:42 10/01/2020 11:24:41 Acute heart failure 89175806 I50.9 Weight down drasticall y overnight although [...] drawn this am Urinary tr act obstruction 2759264 N13.[address] and functionin gFlomax was increased as of last nightHas appointmen t with urology later this monthFaile d voiding trialGiven ongoing retention and hx bladder ca with recommenda tion for cystoscopy , will not reattempt voiding trial between now and urology f/u Acute hyponatremia 09434 02 E87.1 Serum Na improvedFo llow divalents Acute post hemorrhagic anemia 800546136 D62 Stool guaiacs pendRemain s on ASAH&H essentiall y unchanged last few daysFollow labsCheck Fe studies and hemolysis labs Vitamin D deficiency 347 68982 E55.9 Suprathera peutic leveld/c supplement Acute-on-c hronic renal failure 767140503 N17.9 Improved with insertion of Mcpherson and brief IVFCheck MgFollow labs [id number] ANIL RM AT [address] [address] 09/26/2020 10:10:32 10/18/2020 03:48:37 Hypomagnesemia 644986952 E83.42 Mag oxide 400 mg po dailyMg level 1 week Anemia in chronic kidney disease 420726202 D63.1 hemolysis labs negative so far -- await rest of resultseut hyroidanem ia likely related to CKDfollow CBC [id number] ANIL RM AT [address] [address] 09/30/2020 11:17:42 10/17/2020 15:46:42 Lower urinary tract obstructive syndrome 53287011 N13.9 resolved with FoleyConti nue Mcpherson until seen by uroConmonicau brigid Flomax 0.8 mg po qhsUrology f/u later this month Acute-on-c hronic renal failure 919463042 N17.9 resolved with FoleyRenal labs baseline Acute post hemorrhagic anemia 171464375 D62 Stool guaiacs pendH&H improvedre ameya on daily ASAhemolyt ic labs negative Congestive heart failure 09650695 I50.9 EKG and Echo unrevealin gWeight overall down since Mcpherson insertionD yspnea resolvedEd elina improvedOn ly had a 1-time dose of LasixMay have all been related to obstructiv e uropathyFo llow clinically No indication for diuretic therapy at this time [id number] ANIL RM AT [address] [address] 10/02/2020 14:32:39 10/17/2020 16:00:00 Anemia of chronic renal failure 09336066 D63.1 H&H down from prior but overall stableAwai t rest of stool guaiacsFol low CBC Secondary hypomagnesemia 494739616 E83.42 level therapeuti c on supplement no changes needed at this time Acute-on-c hronic renal failure 861305759 N17.9 resolved with FoleyLabs stableNo changes Weight loss 76105644 R63 .4 Had only 1 dose Lasix after iatrogenic CHF from IVFNot sure if weights closer to admit were validFollo w clinically [id number] ANIL RM AT [address] [address] 10/06/2020 15:01:18 10/21/2020 03:48:24 Anemia in chronic kidney disease 994638963 D63.1 stool guaiacs negcontinu e ASAFollow labs [id number] ANIL MR AT [address] [address] 10/10/2020 19:02:32 10/30/2020 03:48:34 Chronic anemia 974125171 D64.9 suspect due to CKDGuaiacs negativeIm proved and stableNo change in plansDecre ase frequency of monitoring labs Chronic ki dney disease stage 3 878167840 N18.30 improved and baselineAK I resolved with treatment of obstructiv e uropathyDe crease frequency of lab monitoring [id number] ANIL RM AT [address] [address] 10/16/2020 21:16:04 10/22/2020 03:47:58 Lbhcm-mt-cpgunjo renal failure 952164621 N17.9 resolved with FoleyLabs stable - clarify lab monitoring has been adjusted to less frequent [id number] ANIL RM AT [address] [address] 10/22/2020 20:38:45 12/11/2020 03:48:27 Retention of urine 006173761 R33.9 Continue indwelling FoleyClari fy with urologist if Flomax should be continued or if there is a plan for future voiding trial [id number] MD [facility] AT [address] [address] 10/28/2020 13:17:00 10/31/2020 13:07:51 Hypertensive disorder 78355638 I10 controlled with current rx, Coronary atherosclerosis 999909998 I25.10 no evidence of failure or ischemia at this time 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 continue remeron and lexapro Retention of urine 93013 4002 R33.9 presumed due to BPH, treated with flomax but failed voiding trial and urology recommends chronic mcpherson, will stop flomax Dementia 90972300 F03.90 stable at this time, slow progressio n anticipate d [id number] ANIL RM AT [address] [address] 11/28/2020 13:08:51 12/03/2020 12:21:01 Benign prostatic hyperplasia with outflow obstruction 967078445 N40.1 Chronic FoleyPrevi ously failed voiding trialsSeen by urologistn o plan for future voiding trialsMoni tor and f/u prn Chronic ki dney disease stage 3 496551652 N18.30 StableCaut ion with nephrotoxi c meds Dyslipidemia 798168934 E 78.5 Continue Lipitor 80 mg po qhsHx CVA and CAD -- no change in dose at this time [id number] MD [facility] AT [address] [address] 12/24/2020 14:45:19 12/26/2020 10:55:08 Atherosclerosis of coronary artery without angina pectoris 0881016089 95166 I25.10 continue beta priscilla, ASA, statin, no evidence of ischemia or failure Dementia 45493468 F03.90 stable at this time, slow progressio n anticipate d Glaucoma 66159190 H40.9 continue current rx Hypertensive disorder 38 169849 I10 last reading slightly elevated but at gaol 90% of recent reading so will continue with current rx, Mild major depression 87 150701 F32.0 doing well on remeron and lexapro Retention of urine 10900 4002 R33.9 presumed due to BPH, treated with flomax but failed voiding trial and urology recommends chronic mcpherson [id number] JESS Burden AT [address] [address] 02/09/2021 15:12:57 02/11/2021 12:52:38 Atherosclerosis of coronary artery without angina pectoris 0484533154 24605 I25.10 atorvastat in 80 mg qhs asa 81 mg qd zetia 10 mg qd monitor for chest pain, sob Dementia 26505308 F01.50 supportive careexpect declineno treatment Mild major depression 87 923918 F32.0 mood stablelexa pro 5 mg qdremeron 7.5 mg qhsmonitor moodpsych prn Hypertensive disorder 38 687250 I10 sbp readings 120s-150s metoprolol xl 50 mg qd asa 81 mg qd monitor bp and adjust meds prn [id number] MD [facility] AT [address] [address] 03/16/2021 09:15:33 03/19/2021 11:35:27 Atherosclerosis of coronary artery without angina pectoris 9836911761 65473 I25.10 continue beta priscilla, ASA, statin, no evidence of ischemia or failure Cobalamin deficiency 190 174254 E53.8 continue rx with oral B12 Dementia 92118708 F01.50 stable at this time, slow progressio n anticipate d Glaucoma 61312342 H40.9 continue current rx Hypertensive disorder 38 031335 I10 bp elevated 40% of recent readings, will up metoprolol to 100 mg daily Mild major depression 87 746873 F32.0 doing well on remeron and lexapro [id number] JESS Burden [facility] AT [address] [address] 04/28/2021 14:09:23 05/01/2021 12:11:28 Atherosclerosis of coronary artery without angina pectoris 4028240063 40182 I25.10 atorvastat in 80 mg qhs asa 81 mg qd zetia 10 mg qd monitor for chest pain, soblipid panel, CMP, CBC on 04/29 Dementia 14644461 F01.50 supportive careexpect declineno treatment Mild major depression 87 215616 F32.0 mood stablelexa pro 7.5 mg qdremeron 7.5 mg qhsmonitor moodpsych prn Hypertensive disorder 38 631671 I10 bp slightly elevated, no change metoprolol xl 100 mg qd asa 81 mg qd monitor bp and adjust meds prn Retention of urine 65483 4002 R33.9 schedule flush of mcpherson with 10 cc normal saline q Tuesday and prn discomfort will f/u with urolgist in [id number] JESS Burden [facility] AT [address] [address] 06/01/2021 13:08:44 06/03/2021 11:39:30 Dementia 32029485 F01.50 Mood stablesupp ortive careexpect declineno treatment Hypertensive disorder 38 728467 I10 BP is stableCont inue metoprolol xl 100 mg qd Continue asa 81 mg qd monitor bp and adjust meds prn Cough 31690594 R05.8 Patient c/o non-produc tive cough. Wheezing noted to bilateral lungs.Star t Albuterol 90mcg inhaler with aerochambe r - 2 puffs PO three times a day x1week and every 4 hours PRN for wheezing/S OBRobituss in - 10ml PO Q6H PRN coughmonit or for worsening sxs [id number] MD WE[facility] Delgado AT [address] [address] 06/03/2021 07:59:26 06/09/2021 09:37:31 Dementia 88329310 F01.50 will monitor and support as neededexpe ct declinesee meds for mixed anxiety/de pressive disorder Coronary atherosclerosis 342488245 I25.10 ASA 81 mg dailyatorv astatin 80 mg dailymetop rolol ER 100 mg dailywill monitor Cobalamin deficiency 190 892844 E53.8 B12 1000 mcg dailywill monitor Hypertensive disorder 38 081888 I10 metoprolol ER 100 mg dailywill monitor 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 escitalopr am 7.5 mg dailymirta zapine 7.5 mg at hswill monitor Hyperlipidemia 63301090 E78.49 ezetimibe 10 mg dailyatorv astatin 80 mg dailywill monitor Cough 26740017 R05.1 suspect URIconside r GERD, pneumonia, pulmonary edema if persists or worsensalb uterol HFA: 2 puffs q4h prnguaifen esin liquid prnconside r CXR, short course steroids for acute bronchitis if symptoms persist [id number] ÁNGELA Camacho AT [address] [address] 06/08/2021 12:26:22 06/10/2021 11:09:03 Dementia 22125554 F01.50 monitor and support as neededexpe ct declinesee meds for mixed anxiety/de pressive disorder Mixed anxi ety and depressive disorder 916405763 F41.8 contescita lopram 7.5 mg dailymirta zapine 7.5 mg at hsmonitor Cough 16907396 R05.1 suspect URIconside r GERD, pneumonia, pulmonary edema if persists or worsenscon t albuterol HFA: 2 puffs q4h prncont guaifenesi n liquid prnCXR done this am. Awaiting results.co nsider short course steroids for acute bronchitis if symptoms persist [id number] JESS Burden AT [address] [address] 06/15/2021 17:16:30 06/18/2021 13:25:15 Respiratory tract congestion and cough 419039323 R05.8 does not appear to be in distressco ntinue prn proventil and robitussin monitor for worsening sxs [id number] JESS Do AT [address] [address] 07/08/2021 13:00:08 07/15/2021 11:04:27 Dementia 33906190 F01.50 Appears mild-moder ate at baselineEx pect declinePsy ch eval prnsee meds for mixed anxiety/de pressive disorder Coronary atherosclerosis 828621879 I25.10 ASA 81 mg dailyatorv astatin 80 mg dailymetop rolol ER 100 mg dailywill monitor Cobalamin deficiency 190 675803 E53.8 B12 1000 mcg dailywill monitor Hypertensive disorder 38 678159 I10 metoprolol ER 100 mg dailyAppea rs well controlled will monitor Mixed anxi ety and depressive disorder 254764679 F41.8 escitalopr am 7.5 mg dailymirta zapine 7.5 mg at hsPsych eval prn Hyperlipidemia 67418373 E78.49 ezetimibe 10 mg dailyatorv astatin 80 mg dailywill monitor [id number] ÁNGELA Camacho AT [address] [address] 07/13/2021 11:11:32 07/15/2021 14:24:19 Dementia 29671602 F01.50 Appears mild-moder ate at baselineEx pect declinePsy ch eval prnsee meds for mixed anxiety/de pressive disorder SARS-CoV-2 696890594 U07 .1 tested positive for covid 19 on 07/12/21sta rted on paxlovid on 07/13/21 x5 daysstart mucinex po bid prnwill get labs weekly x 2 weeksencou rage fluidsprec autions in placemonit or Impacted c erumen in left ear 1029003799 337255 H61.22 impacted cerumen to left eardebrox 4 gtts to left ear bid x 3 days and flush on day 4 with warm watermonit or [id number] JESS Burden AT [address] [address] 07/14/2021 12:42:55 07/16/2021 11:35:40 Dementia 16649890 F01.50 supportive careExpect declinemoo d stablereme pepito 7.5 mg qhslexapro 7.5 mg qdPsych prn Coronary atherosclerosis 817622554 I25.10 ASA 81 mg qdatorvast atin 80 mg qhsmetopro lol ER 100 mg qdezetmibe 10 mg qdmonitor for sob, chest pain Hypertensive disorder 38 512122 I10 BP elevated today though most readings are SBP < 150continu e metoprolol ER 100 mg qdcontinue BP QDadjust meds prn Mixed anxi ety and depressive disorder 503267342 F41.8 mood stableesci talopram 7.5 mg qdmirtazap ine 7.5 mg qhsPsych prn Hyperlipidemia 23044020 E78.49 ezetimibe 10 mg qdatorvast atin 80 mg qdLFTs and lipid panel normal in May 2021 SARS-CoV-2 147121018 U07 .1 tested positive for covid 19 on 07/12/21sta rted on paxlovid on 07/13/21 x5 daysstart mucinex po bid prnwill get labs weekly x 2 weeksmonit or for resp, gi distress, bowelsenco urage fluidsprec autions in placemonit or [id number] Beatriz Cleaning NP [facility] AT [address] [address] 07/15/2021 16:12:32 07/17/2021 10:46:04 SARS-CoV-2 602954771 U07.1 tested positive for covid 19 on 07/12/21sta rted on paxlovid on 07/13/21 x5 dayscontin uemucinex po bid prnlabs weekly x 2 weeks to monitor renal function with history of akiencoura ge fluidsprec autions in placemonit or Impacted c erumen in left ear 7987508941 702290 H61.22 impacted cerumen to left eardebrox 4 gtts to left ear bid x 3 days and flush on day 4 with warm water started on 4/18monito r Dementia 08522880 F01.50 Appears mild-moder ate at baselineEx pect declinePsy ch eval prnsee meds for mixed anxiety/de pressive disorder [id number] Gerardo Fraire NP [facility] AT [address] [address] 07/16/2021 15:25:35 07/20/2021 16:15:35 SARS-CoV-2 644428131 U07.1 tested positive for covid 19 on 07/12/21sta rted on paxlovid on 07/13/21 x5 dayscontin uemucinex po bid prnlabs weekly x 2 weeks to monitor renal function with history of akiencoura ge fluidsprec autions in placemonit or and adjust interventi ons as indicated Impacted c erumen in left ear 5259708414 162403 H61.22 impacted cerumen to left eardebrox 4 gtts to left ear bid x 3 days and flush on day 4 with warm water started on r and adjust interventi ons as indicated [id number] Beatriz Cleaning NP [facility] AT [address] [address] 07/17/2021 14:11:19 07/21/2021 14:15:59 SARS-CoV-2 584991845 U07.1 tested positive for covid 19 on 07/12/21sta rted on paxlovid on 07/13/21 x5 dayscontin uemucinex po bid prnstart tessalon perles 100 mg po tidlabs weekly x 2 weeks to monitor renal function with history of akiencoura ge fluidsprec autions in placemonit or and adjust interventi ons as indicated Impacted c erumen in left ear 8323951491 361808 H61.22 impacted cerumen to left earspeak loudly into left ear as it is his better eardebrox 4 gtts to left ear bid x 3 days and flush on day 4 with warm water started on ito r and adjust interventi ons as indicated [id number] JESS Burden [facility] AT [address] [address] 07/20/2021 15:37:13 07/22/2021 11:32:23 SARS-CoV-2 546845876 U07.1 tested positive for covid 19 on 07/12/21fin ished paxlovidmu cinex po bid and q day prntessalo n perles 100 mg po tid till 07/25/21lab s weekly x 2 weeks to monitor renal function with history of akiencoura ge fluidsprec autions in placemonit or and adjust interventi ons as indicated Impacted c erumen in left ear 7586366546 566392 H61.22 pt continues with cerumen blockage in both earsrefer to ENT to flush ears [id number] ÁNGELA CamachoLEY AT [address] [address] 07/22/2021 19:17:12 07/27/2021 10:48:18 SARS-CoV-2 132410246 U07.1 tested positive for covid 19 on 07/12/21 and finished quarantine todayfinis hed paxlovidmu cinex po bid and q day prntessalo n perles 100 mg po tid till 07/25/21lab s okayencour age fluidsprec autions in placemonit or and adjust interventi ons as indicated Impacted c erumen in left ear 1195878780 335127 H61.22 pt continues with hearing decreasere terra to ENT to flush ears ([facility])pt states has an appt to fix his broken hearing aidemonito r [id number] Beatriz Cleaning NP [facility] AT [address] [address] 07/27/2021 12:31:31 07/29/2021 11:03:43 SARS-CoV-2 577693674 U07.1 resolvedte sted positive for covid 19 on 07/12/21 and finished quarantine todayfinis hed paxlovidfi nished mucinex po bid and q day prn, tessalon perles 100 mg po tid till 07/25/21 Impacted c erumen in left ear 9566924687 826911 H61.22 pt continues with hearing decrease?r efer to ENT to flush [facility] ([facility] only getting bulb syringe flushesit is unclear if he is [facility] a [facility] [place] [facility] or a pcpsocial work consulted to help with care as it is not clear if james garber is a specialist or pcp per wifeluther g aides fixed per wifecontin ue debrox 5 gtts to left ear twice today and then bid until july 30 then send to [facility] for fu or flush here.monit [place] [id number] ÁNGELA Camacho AT [address] [address] 07/31/2021 11:58:04 08/03/2021 14:03:21 Impacted cerumen in left ear 5502726470 272728 H61.22 pt hearing improved todayhe [facility] cerumen with hearing loss and hearing aidshad cerumen removed at [facility] with drill on 07/30 and hearing is improvedde brox 4 gtts to each ear bid x 3 days and flush on day 4 with warm water monthly start on 09/08/21app t to fu with Dr. Randy almaguer at [facility] on 11/11/21 and needs flushing prior which will coincide with abovemonit or [id number] MD WEST Delgado AT [address] [address] 08/12/2021 07:36:17 08/17/2021 12:26:10 Coronary atherosclerosis 009545715 I25.10 ASA 81 mg dailyatorv astatin 80 mg dailymetop rolol ER 100 mg dailywill monitor Cobalamin deficiency 190 487248 E53.8 B12 1000 mcg dailywill monitor Hypertensive disorder 38 668515 I10 metoprolol ER 100 mg dailywill monitor Mixed hyperlipidemia 267 802229 E78.2 ezetimibe 10 mg dailyatorv astatin 80 mg dailywill monitor Mixed anxi ety and depressive disorder 846780856 F41.8 escitalopr am 7.5 mg dailymirta zapine 7.5 mg at hswill monitor Osteoarthritis 254820878 M15.0 APAP 1000 mg bid and 500 mg q4h prnwill monitor SARS-CoV-2 783472074 U07 .1 tested positive 07/12/21sta rted Paxlovid 07/13/21had mild course and recoveredw ill continue to monitor Impaired cognition 27337 6002 R41.89 will monitor and support as neededexpe ct declinesee meds for mixed anxiety/de pressive disorder [id number] ÁNGELA Camacho AT [address] [address] 08/13/2021 14:22:15 08/17/2021 12:49:42 Dementia 39597306 F01.50 Appears mild-moder ate at baselineEx pect declinePsy ch eval prnsee meds for mixed anxiety/de pressive disorder Hypertensive disorder 38 405849 I10 pt has increased bp of 172/70 however recent bps on the high side in the 140's lately.sta rt amlodipine 2.5 mg po dailyhr low at 47 x1, usually in the 55-72 rangeconsi luis decreasing metoprolol if hr cont to be lowmonitor [id number] JESS Burden AT [address] [address] 08/31/2021 15:20:33 09/02/2021 14:18:06 Retention of urine 745165929 R33.9 pt is feeling fine todayconti nue flush of mcpherson with 10 cc normal saline q Tuesday and prn discomfort will f/u with urologist in pt has another episode of bladder spasms not relieved with mcpherson flush then could consider adding [place] [id number] ÁNGELA CamachoLEY AT [address] [address] 09/14/2021 12:00:28 09/16/2021 14:07:50 Dementia 64571416 F01.50 Appears mild-moder ate at baselineSL UMS todayExpec t declinePsy ch eval prnsee meds for mixed anxiety/de pressive disorder Hypertensive disorder 38 986760 I10 recently had amlodipine 2.5 mg po daily added in Julybps remain labile with less high bpsconside r decreasing metoprolol if hr cont to be lowhr 60 today and stablemoni tor Coronary atherosclerosis 373237533 I25.10 contASA 81 mg dailyatorv astatin 80 mg dailymetop rolol ER 100 mg dailywill monitor Cobalamin deficiency 190 236054 E53.8 contB12 1000 mcg dailywill monitor Mixed hyperlipidemia 267 649613 E78.2 contezetim johanna 10 mg dailyatorv astatin 80 mg dailywill monitor Mixed anxi ety and depressive disorder 129405052 F41.8 contescita lopram 7.5 mg dailymirta zapine 7.5 mg at hswill monitor Osteoarthritis 034326896 M15.0 contAPAP 1000 mg bid and 500 mg q4h prnwill monitor Impaired cognition 54100 6002 R41.89 will monitor and support as neededexpe ct declinesee meds for mixed anxiety/de pressive disorder Hearing loss 65159199 H9 1.93 pt is following up at [facility] he does not need debrox anymoremon itor Retention of urine 27960 4002 R33.9 reports blockage of urine yesterday resolved with new foleycontc hange mcpherson out per nsg and flush mcpherson as neededusin g leg bag and night bagmonitor urine for amt/color/ clarity [id number] ÁNGELA Camacho AT [address] [address] 09/16/2021 14:26:27 2021 16:24:55 Coronary atherosclerosis 302049087 I25.10 HR is 49 today and has had several low hr/asympto maticcontA SA 81 mg dailyatorv astatin 80 mg dailydecre ase metoprolol ER 100 mg daily to 50 mg ER dailywill monitor [id number] MD WEST Delgado AT [address] [address] 5 10/21/2021 06:29:01 10/23/2021 12:03:41 Dementia 72691192 F01.50 will monitor and support as neededexpe ct declinesee meds for mixed anxiety/de pressive disorder Coronary atherosclerosis 141067125 I25.10 ASA 81 mg dailyatorv astatin 80 mg dailymetop rolol ER 50 mg dailywill monitor Cobalamin deficiency 190 [id number] E53.8 B12 1000 mcg dailywill monitor Mixed anxi ety and depressive disorder [id number] F41.8 escitalopr am 7.5 mg dailymirta zapine 7.5 mg at hswill monitor Osteoarthritis [id number] M15.0 APAP 1000 mg bid and 500 mg q4h prnwill monitor Mixed hyperlipidemia 267 192016 E78.2 ezetimibe 10 mg dailyatorv astatin 80 mg dailywill monitor Hypertensive disorder 38 019964 I10 metoprolol ER 50 mg dailyamlod ipine 2.5 mg dailywill monitor [id number] Beatriz Cleaning NP [place] AT [address] [address] 11/03/2021 12:22:43 11/05/2021 11:26:48 Dementia [id number] F01.50 monitor and support as needed at [facility] for mixed anxiety/de pressive disorder Coronary atherosclerosis [id number] I25.10 ASA 81 mg dailyatorv astatin 80 mg dailymetop rolol ER 50 mg daily(rece ntly decreased due to low hr in the 40s, now stable)mon itor with pcp Cobalamin deficiency 190 609156 E53.8 B12 1000 mcg dailymonit or with pcp Mixed anxi ety and depressive disorder [id number] F41.8 escitalopr am 7.5 mg dailymirta zapine 7.5 mg at hsmonitor with pcp Osteoarthritis [id number] M15.0 APAP 1000 mg bid and 500 mg q4h prnmonitor with pcp Mixed hyperlipidemia 267 055209 E78.2 ezetimibe 10 mg dailyatorv astatin 80 mg dailymonit or with pcp Hypertensive disorder 38 840909 I10 metoprolol ER 50 mg daily (hr stable in 60s after decrease)a mlodipine 2.5 mg dailybp monitor with pcp (140s /70s lately) Hyperlipidemia 62581429 E78.49 ezetimibe 10 mg qdatorvast atin 80 mg qdLFTs and lipid panel normal in May 2021monito r with pcp Age relate d macular degeneration [id number] H35.30 stablelant anoprolst sha 0.005 % 1 gtt to both eyes dailyprese rvision 1 tab bidmonitor with pcp Retention of urine [id number] R33.9 reports blockage of urine yesterday [...] Directives Directive Y: DNR, DNI, transfer to [facility] pital, no dialysis, no artificial nutrition Payers Insurance Date Sequence Insurance Name Policy Number Policy Molina Covered Member ID Molina Member ID Guarantor Name 11/03/2021 2 [place] [facility] Maik Akins Elen [id number] Maik Myrick 11/03/2021 1 [place] B[place] [employer] Maik Akins Elen [id number] Maik Myrick 09/26/2020 1 [place]: [place] (MEDICARE REPLACEMENT PPO) [id number] Maik Elen [id number] Maik Myrick Notes Date Note Type Note [...] hospital - signed 02/27/21 JESS Burden [address], [address], [place], [address], [facility] 08/31/2021 15:29:11 09/14/2021 text/html ROS as noted in the HPI This 85 year old male halfway care resident is seen today for routine rounding visit. Medical history is remarkable for cognitive impairment, CAD, hypertension, depression, hyperlipidemia, unsteady gait, chronic urinary retention with Mcpherson Patient had significantly reduced hearing despite hearing aides. He was seen at [facility] and patient reported that a drill was used to removed impacted cerumen with terrific improvement in his hearing. He now has a plan to go to [facility] regularly to monitor cerumen in ears. [...] - signed 02/27/21 Beatriz Cleaning NP [address], [address], [place], [address], [facility] 09/14/2021 13:12:00 09/16/2021 text/html ROS as noted in the HPI This 85 year old male halfway care resident is seen today for an [...] fine and cooperative with assessment today in [facility]. 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 MOLST: DNR, DNI, okay to transfer to hospital - signed 02/27/21 Beatriz Cleaning NP [address], [address], [place], [address], [facility] [employer] [facility] 09/16/2021 14:37:41 10/21/2021 text/html ROS as [...] wheelchair in his room watching television in [facility]. He tells me that he feels good today. MOLST: DNR, DNI, okay to transfer to hospital - signed 02/27/21 Deya Krishnan MD [address], [address], [place], [address], [facility] [employer] [facility] 10/21/2021 10:58:23 11/03/2021 text/html ROS as noted in the HPI This 86 year old male halfway care resident is seen today for a discharge visit. Medical history is remarkable for cognitive impairment, CAD, hypertension, depression, hyperlipidemia, unsteady gait, chronic urinary retention with Mcpherson, hx of right fractured femur healed now. Recently at [place] his pulse had been running low, so metoprolol ER decreased to 50 mg daily on 09/17/21 with good effect. Pulse now in 60s and BP in 140s/ 70s range. He had a significant cerumen impaction effecting both ears requiring [facility]. He [facility] in [...] - signed 02/27/21 Beatriz Cleaning NP [address], [address], [place], [address], [facility] 11/03/2021 12:38:51
[2025-03-07 01:24] LABS: Resp Syncy Virus RNA Qual PCR NEGATIVE (Negative); SARS COV2 PCR INHOUSE NEGATIVE (Negative)
[2025-03-07] MEDS: Linezolid/D5W 600 MG/300 ML PIGGYBACK 300 MG IV ×3 (01:38→23:14)
[2025-03-07 02:19] LABS: Reflex Lactate? Lactic Acid Added
[2025-03-07 04:09] LABS: Hematocrit 34.1 % (42.0-52.0); Hemoglobin 11.9 g/dl (14.0-18.0); Imm Gran Abs Auto 0.09 X10*3/uL (0.00-0.03); Imm Gran Pct Auto 0.7 % (0.0-0.4); Lymphocytes Absolute Auto 1.0 X10*3/uL (1.2-4.9); MANUAL DIFF FLAG SCAN; Mean Corpuscular HGB Conc 34.9 g/dl (31.0-36.0); Mean Corpuscular Hemoglobin 33.4 pg (27.0-33.0); Mean Corpuscular Volume 95.8 fL (80.0-98.0); NRBC Abs Auto 0.000 X10*3/uL (0.0-0.012); NRBC Pct Auto 0.0 /100WBC (0.0-0.2); Platelet Count 163 X10*3/uL (160-400); Red Blood Count 3.56 X10*6/uL (4.60-5.80); SCAN SMEAR FLAG 1; White Blood Count 12.4 X10*3/uL (4.8-10.8)
[2025-03-07 04:30] LABS: Alanine Aminotransferase 7 U/L (0-40); Albumin Level 3.5 g/dL (3.5-5.0); Alkaline Phosphatase 27 U/L (39-117); Anion Gap 14 (12-20); Aspartate Amino Transferase 22 U/L (5-37); Blood Urea Nitrogen 24 mg/dL (9-16); Calcium 8.6 mg/dL (8.4-10.2); Carbon Dioxide 22 mmol/L (22-29); Chloride 109 mmol/L (96-108); Creatinine Clr Calc Pharmacy 40.1; Estimated Glomerular Filt Rate 54; Potassium 3.7 mmol/L (3.3-5.1); Sodium 141 mmol/L (135-145); Total Protein 6.3 g/dL (6.5-8.0)
[2025-03-07] MEDS: Albuterol/Iprat 2.5/0.5MG 3 ML AMPUL.NEB INHALE ×2 (05:47→13:28)
[2025-03-07] MEDS: Furosemide 20 MG/2 ML VIAL IVPUSH (05:49)
--- NOTE | 2025-03-07 06:17 | HO.NURTONUR ---
[facility]itness[facility] out fo wheelchair, with head strike. recent treatment for PNA, and found to have lactic 3.6 and UTI. contact precautions for Klebsiella in urine. suprapubic changed by [facility] staff at 03/06. Patient alert but confused, having hallucinations and can be aggressive. 20g R FR. NS @100mL/ hr. Patient wheezing this morning received breathing tx and lasix. PMHx of dementia, hypertension, hyperlipidemia, chronic kidney disease stage IIIA, heart failure, CAD, AFib on Eliquis, bladder cancer with suprapubic catheter last changed 03/06/2025, UTI (klebsiella, VRE, Pseudomonas), osteoarthritis, glaucoma, mood disturbance, anemia, hyperlipidemia, COPD
--- NOTE | 2025-03-07 07:42 | PC.NURSE ---
patient daughter karen reached out for update, given update over the phone
--- NOTE | 2025-03-07 07:57 | PC.NURSE ---
Addendum entered by Ruthie Moffett RN 03/07/25 08:02: 550 cc emptied out of patient suprapubic bag. Original Note: Assumed care of patient at 0645. Patient resting in bed, getting nebulizer treatment. Noted to have junky cough. SPT attached to bag draining. VSS. Patient on monitor. Fluids running at 80cc/hr. No needs at this time.
--- NOTE | 2025-03-07 08:49 | HO.PM.IMPN ---
Subjective Subjective Date of Service: 03/07/25 Interval History: s/p fall uti Review of Systems mental status per his similar(? near baseline) Review of Systems: Yes all other systems are reviewed and are negative Physical Exam Exam: Exam: Appearance: Alert.? Oriented X1, similar to h&P. cvs: rrr, [id number] . res: air entry fair , no rales or wheezing abd: no rebound or guarding ,nt, bs present. ext pulses present , no cyanosis . neuro: moving ext rest of physical exam-see h&P. Vital Signs: Vital Signs: Last Vital Signs Temp 97.7 F 03/07/25 07:47 Pulse 76 03/07/25 07:47 Resp 20 03/07/25 07:47 BP 148/70 H 03/07/25 07:47 Pulse Ox 97 03/07/25 07:47 O2 Del Method Nasal Cannula 03/07/25 07:47 O2 Flow Rate 2 03/07/25 07:47 Oxygen Flow Rate 2 03/06/25 16:15 BMI result Body Mass Index 22.8 Objective Data Active Medications Acetaminophen (Acetaminophen 325 Mg Tablet) 650 mg PO Q6H PRN PRN Reason: Pain, Mild 1-3,fever,headache Albuterol/Ipratropium (Albuterol/Iprat 2.5/0.5mg 3 Ml Ampul.Neb) 3 ml INHALE Q4H PRN PRN Reason: Shortness of Breath/Wheezing Last Admin: 03/07/25 05:47 Dose: 3 ml Documented By: RJ Budesonide (Budesonide 0.5 Mg/2 Ml Ampul.Neb) 0.5 mg INHALE ID [facility] Last Admin: 03/07/25 07:36 Dose: 0.5 mg Documented By: HILARY Calcium Carbonate (Calcium Carbonate 750 Mg Tab.Chew) 750 mg PO Q4H PRN PRN Reason: Heartburn Sodium Chloride (Ns) 1,000 mls @ 100 mls/hr IVCONT .Q10H [facility] Last Infusion: 03/07/25 07:45 Dose: 80 mls/hr Documented By: FIDELINA Ceftriaxone Sodium 1 gm/ (Sodium Chloride) 50 mls @ 100 mls/hr IV Q24H [facility] Linezolid (Zyvox/D5w) 600 mg in 300 mls @ 300 mls/hr IV Q12H [facility] Magnesium Hydroxide (Milk Of Magnesia 30 Ml Oral.Susp) 30 ml PO DAILY PRN PRN Reason: Constipation Melatonin (Melatonin 3 Mg Tablet) 6 mg PO BEDTIME PRN PRN Reason: Insomnia Ondansetron HCl (Ondansetron Hcl 4 Mg/2 Ml Vial) 4 mg IVPUSH Q8H PRN PRN Reason: Nausea and Vomiting Polyethylene Glycol (Polyethylene Glycol 3350 17 Gm Powd.Pack) 17 gm PO DAILY PRN PRN Reason: Constipation Senna (Sennosides 8.6 Mg Tablet) 17.2 mg PO BEDTIME [facility] Sodium Chloride (0.9 % Sodium Chloride Flush 3 Ml Syringe) 3 ml IVFLUSH QSHIFT [facility] Last Admin: 03/07/25 07:47 Dose: Not Given Documented By: KAYLYN Non-Admin Reason: See Note Labs 03/07/25 03:36 03/07/25 03:36 Labs: Laboratory Results - last 24 hr 03/06/25 03/06/25 03/07/25 17:05 22:24 00:15 MCV 95.0 MCH 32.8 MCHC 34.5 RDW 12.2 Plt Count 193 D MPV 10.1 Immature Gran % (Auto) 0.8 H Neut % (Auto) 80.6 H Lymph % (Auto) 6.3 L [place] % (Auto) 10.4 Eos % (Auto) 1.5 Baso % (Auto) 0.4 Lymph # (Auto) 0.8 L [place] # (Auto) 1.4 H Eos # (Auto) 0.2 Baso # (Auto) 0.1 Abs Immat Gran (auto) 0.11 H Absolute Neuts (auto) 10.6 H Absolute Nucleated RBC 0.000 Nucleated RBC % (auto) 0.0 Smear Tech's Comments Hold Purple Top SEE NOTE VBG pH VBG pCO2 VBG pO2 VBG HCO3 VBG O2 Saturation VBG Base Excess Anion Gap 16 Estim Creat Clear Calc 36.9 Estimated GFR 49 Random Glucose 125 H Lactic Acid 3.7 H* Calcium 9.7 D Total Bilirubin 0.8 AST 29 ALT 14 Alkaline Phosphatase 32 L Total Protein 7.5 Albumin 4.1 Urine Color Yellow Urine Appearance Turbid Urine pH 8.5 Ur Specific [place] 1.025 Urine Protein 100 (2+) H Urine Glucose (UA) Negative Urine Ketones Trace Urine Blood Large (3+) H Urine Nitrite Negative Ur Leukocyte Esterase Moderate (2+) H Urine RBC >20 H Urine WBC 21-50 H Ur Squamous Epith Cells 0-2 Calcium Oxalate Crystal Present Urine Bacteria 1+ Hyaline Casts 3-5 Influenza Type A (PCR) Influenza Type B (PCR) RSV RNA Qual (PCR) SARS-CoV-2 RNA (RT-PCR) 03/07/25 03/07/25 03/07/25 00:21 00:44 03:36 MCV 95.8 MCH 33.4 H MCHC 34.9 RDW 12.3 Plt Count 163 MPV 10.3 Immature Gran % (Auto) 0.7 H Neut % (Auto) 77.3 H Lymph % (Auto) 7.9 L [place] % (Auto) 12.8 H Eos % (Auto) 0.9 Baso % (Auto) 0.4 Lymph # (Auto) 1.0 L [place] # (Auto) 1.6 H Eos # (Auto) 0.1 Baso # (Auto) 0.1 Abs Immat Gran (auto) 0.09 H Absolute Neuts (auto) 9.6 H Absolute Nucleated RBC 0.000 Nucleated RBC % (auto) 0.0 Smear Tech's Comments VERIFIED Hold Purple Top VBG pH 7.24 L VBG pCO2 61 VBG pO2 42 VBG HCO3 26 VBG O2 Saturation 56.0 VBG Base Excess -1.5 Anion Gap 14 Estim Creat Clear Calc 40.1 Estimated GFR 54 Random Glucose 142 H Lactic Acid Calcium 8.6 D Total Bilirubin 0.5 AST 22 ALT 7 Alkaline Phosphatase 27 L Total Protein 6.3 L Albumin 3.5 Urine Color Urine Appearance Urine pH Ur Specific [place] Urine Protein Urine Glucose (UA) Urine Ketones Urine Blood Urine Nitrite Ur Leukocyte Esterase Urine RBC Urine WBC Ur Squamous Epith Cells Calcium Oxalate Crystal Urine Bacteria Hyaline Casts Influenza Type A (PCR) NEGATIVE Influenza Type B (PCR) NEGATIVE RSV RNA Qual (PCR) NEGATIVE SARS-CoV-2 RNA (RT-PCR) NEGATIVE 03/07/25 05:44 MCV MCH MCHC RDW Plt Count MPV Immature Gran % (Auto) Neut % (Auto) Lymph % (Auto) [place] % (Auto) Eos % (Auto) Baso % (Auto) Lymph # (Auto) [place] # (Auto) Eos # (Auto) Baso # (Auto) Abs Immat Gran (auto) Absolute Neuts (auto) Absolute Nucleated RBC Nucleated RBC % (auto) Smear Tech's Comments Hold Purple Top VBG pH VBG pCO2 VBG pO2 VBG HCO3 VBG O2 Saturation VBG Base Excess Anion Gap Estim Creat Clear Calc Estimated GFR Random Glucose Lactic Acid 0.9 Calcium Total Bilirubin AST ALT Alkaline Phosphatase Total Protein Albumin Urine Color Urine Appearance Urine pH Ur Specific [place] Urine Protein Urine Glucose (UA) Urine Ketones Urine Blood Urine Nitrite Ur Leukocyte Esterase Urine RBC Urine WBC Ur Squamous Epith Cells Calcium Oxalate Crystal Urine Bacteria Hyaline Casts Influenza Type A (PCR) Influenza Type B (PCR) RSV RNA Qual (PCR) SARS-CoV-2 RNA (RT-PCR) Assessment and Plan (1) UTI (urinary tract infection): Status: Acute Assessment and Plan: 89-year-old male with history of dementia, hypertension, hyperlipidemia, chronic kidney disease stage IIIA, heart failure, CAD, AFib on Eliquis, bladder cancer with suprapubic catheter last changed 03/06/2025, UTI (klebsiella, VRE, Pseudomonas), osteoarthritis, glaucoma, mood disturbance, anemia, hyperlipidemia, COPD currently resides at the [facility] in [place] and there was a complaint of a fall that was unwitnessed. Patient noted to be on anticoagulation and patient was sent into the ED for further evaluation. Patient does not present with evidence of sepsis on admission. Patient being admitted for the following medical problems: Status post fall unwitnessed on anticoagulation CT of the head and CT of the cervical spine negative for acute findings Small superficial abrasion to the left frontal area of the skull, stable plan: pt eval UTI with history of Klebsiella, VRE and Pseudomonas/ suprapubic catheter (secondary to Bladder CA HX) Starting patient on ceftriaxone and linezolid (reviewed with pharmacist) Patient placed on precautions noting the VRE Suprap[facility] Pneumonia previously diagnosed with treatment initiated/ suspect aspiration Aspiration precautions in place Patient currently on ceftriaxone and linezolid (see above for UTI) Incentive spirometry as tolerated Oxygen via nasal cannula, patient recently started using oxygen [facility], wean as tolerated Speech therapy eval -diet started Hypertension Once med rec completed continue home medications to include amlodipine and HCTZ Cardiac low-salt diet Hyperlipidemia Continue statin once med rec completed LFTs are stable AFib Continue Eliquis and metoprolol . Telemetry Advanced stage dementia per h&P note-required IM Zyprexa due to behavioral concerns and agitation moniter closely DVT prophylaxis: Eliquis Med rec pending DNR DNI status ongoing need for stay : IV antibiotics for pneumonia and UTI with workup for possible aspiration. Quality Stroke Does the patient have a stroke diagnosis?: No Reason for No Anti-thrombotic by Day Two: N/A - Med Ordered VTE Prior VTE?: No VTE Risk Level:: Medical - moderate - high VTE Device Contraindication: N/A - Device Ordered VTE Drug Contraindication: N/A - Med Ordered
--- NOTE | 2025-03-07 09:37 | PHA.MEDREC ---
Addendum entered by Jennifer CottonD 03/07/25 09:41: Patient is also on Augmentin 500 mg/125 mg 1 tab BID Start Date: 03/05/2025 @1700 Stop date: 03/10/25 @0900 Indication: bacterial pneumonia Original Note: Pharmacy Consult ? Medication Reconciliation Pharmacy has completed the medication reconciliation. Used medication list from [facility] [place]. Called [facility] to confirm patient is still on quetiapine 25 mg every evening.
--- NOTE | 2025-03-07 15:39 | MHC.SL.SWA ---
Speech Pathologist Impression: Mild-moderate oropharyngeal dysphagia Risk of Aspiration Due to: Cognition, Current respiratory status/? aspiration pneumonia Dysphasia Diet Status: START diet of NDD1 (puree), THIN liquids Liquid Consistency and Strategies for Safe Swallow: Liquid Intake Recommendation: Thin Liquid Intake Strategies: Solid Food Consistency: Dietary Recommendations: Pureed (NDD1) Additional Modifications to Solid Foods: Oral Medication Intake: Crushed with Puree Please contact the pharmacy regarding appropriate crushable or liquid drug formulations that are available whenever modified delivery is recommended. Compensatory Strategies and Precautions to be Taken for Safe Swallow: Sit Upright Slow feeding rate Small sips/bites Alternate liquids/solids Requires cueing/encouragement for PO intake Remain upright after meal (30 minutes) Supervision While Eating and Drinking for Safe Swallow: Total Assistance (1:1) Foods to Avoid: Swallowing Recommended Treatments: Compensatory Strategies Recommendation for Speech: Inpatient Speech Therapy Comment: Patient with mild-moderate oropharyngeal dysphagia, exacerbation d/t cognitive and respiratory status. Patient with audible wheezing and congested breathing; sats remaining in high 90s for entire evaluation. Thin and NTLs trialed this date, patient with same presented for both- no overt s/sx of penetration/aspiration, no vocal changes noted and no tearing of eyes. Patient given small piece of angela cracker, requiring moderate cues to not talk and to masticate angela cracker- minimal mastication efforts and bolus cohesion noted. Patient accepting pudding, delayed transit, adequate clearance, suspected timely swallow- multiple swallows per bolus noted. Patient with cough intermittently, not noted with PO. Cough perceived as congested and nonproductive. Patient with limited cognition, unable to educate on strategies or provide any swallowing history. No diet in physical chart and [facility]ic[facility] get [facility]x. Recommend START diet of NDD1 (puree), THIN liquids with 1:1 feeding assistance (little attempts made to feed self). Medications CRUSHED in puree. MD, RD, and RN given recommendations via secure chat. ENGINEER TECHNICAL STAFF to follow. Frequency/Duration: M-F Daily Date Range for Service Req: Timeline to reassess: Electric Meter Installer Clinican/Clinical Fellow: No Supervisory Statement: I have reviewed and agree with the student/clinical fellow's documentation: N/A Speech Language Pathologist: Cat Gudino M.A., CCC-ENGINEER TECHNICAL STAFF
--- NOTE | 2025-03-07 15:55 | PC.NURSE ---
patient is currently sleeping, resp even and unlabored. patient awakes to noxious stimuli, holding patients po meds for now due to patient not staying awake enough to take po meds.
--- NOTE | 2025-03-07 16:23 | MHC.CM.PN ---
PT IS FROM THE [facility] IN [place] HE REQUIRES ASSIST WITH ALL CARE AND USES A W/C HCP AND POA ON FILE T/C TO /HCP RADHA SEGOVIA [phone] IMM DELIVERED DCP: RETURN TO THE [facility] VIA BLS
--- NOTE | 2025-03-07 17:24 | PC.NURSE ---
patient woke up, medicated per MAY, meds crushed in pudding. patient took meds but became agitated with eating pudding. patient had soft BM, cleaned up, new pads placed. patient rectal temp 100.1, attending notified.
[2025-03-08] VITALS (10 sets, daily range): BP systolic 124–177; BP diastolic 55–78; PULSE 71–93; RESP 11–22; TEMP 36.3–37.7; O2SAT 92–98; BMI 28.6
--- NOTE | 2025-03-08 09:03 | P.PNIM_ITS ---
Subjective Subjective Date of Service: 03/08/25 Interval History: awake ,seems similar , knows his name Review of Systems Review of Systems: Yes all other systems are reviewed and are negative Physical Exam 2 Exam: Exam: Appearance: Alert.? Oriented X1, similar to h&P. cvs: [id number], [id number] . res: air entry fair , no rales or wheezing abd: no rebound or guarding ,nt, bs present. ext pulses present , no cyanosis . neuro: moving ext rest of physical exam-see h&P. Vital Signs: Vital Signs: Last Vital Signs Temp 99.8 F 03/08/25 07:30 Pulse 85 03/08/25 08:39 Resp 22 H 03/08/25 08:39 BP 151/68 H 03/08/25 07:30 Pulse Ox 93 03/08/25 07:30 O2 Del Method Oxymask 03/08/25 07:30 O2 Flow Rate 2 03/08/25 07:30 Oxygen Flow Rate 2 03/06/25 16:15 BMI result Body Mass Index 28.6 Objective Data Active Medications Albuterol/Ipratropium (Albuterol/Iprat 2.5/0.5mg 3 Ml Ampul.Neb) 3 ml INHALE Q4H PRN PRN Reason: Shortness of Breath/Wheezing Last Admin: 03/07/25 13:28 Dose: 3 ml Documented By: HILARY Apixaban (Apixaban 2.5 Mg Tablet) 2.5 mg PO BID [facility] Artificial Tears (Artificial Tears 15 Ml Drops) 1 drop EYE-BOTH QID PRN PRN Reason: Dry Eyes Ascorbic Acid (Ascorbic Acid 500 Mg Tablet) 500 mg PO DAILY [facility] Atorvastatin Calcium (Atorvastatin Calcium 20 Mg Tablet) 20 mg PO BEDTIME [facility] Last Admin: 03/07/25 21:17 Dose: 20 mg Documented By: RUBEN Budesonide (Budesonide 0.5 Mg/2 Ml Ampul.Neb) 0.5 mg INHALE RBID [facility] Last Admin: 03/08/25 08:31 Dose: 0.5 mg Documented By: ALLI Calcium Carbonate (Calcium Carbonate 750 Mg Tab.Chew) 750 mg PO Q4H PRN PRN Reason: Heartburn Cyanocobalamin (Cyanocobalamin (Vitamin B-12) 1,000 Mcg Tablet) 1,000 mcg PO DAILY [facility] Docusate Sodium (Docusate Sodium 100 Mg Capsule) 100 mg PO BID [facility] Last Admin: 03/07/25 21:17 Dose: Not Given Documented By: RUBEN Non-Admin Reason: unable to crush med Ezetimibe (Ezetimibe 10 Mg Tablet) 10 mg PO DAILY [facility] Escitalopram Oxalate (Escitalopram Oxalate 10 Mg Tablet) 10 mg PO DAILY [facility] Last Admin: 03/07/25 17:21 Dose: 10 mg Documented By: FIDELINA Folic Acid (Folic Acid 1 Mg Tablet) 1 mg PO DAILY [facility] Sodium Chloride (Ns) 1,000 mls @ 100 mls/hr IVCONT .Q10H [facility] Last Admin: 03/08/25 06:45 Dose: Not Given Documented By: DARCY Non-Admin Reason: IV Running Ceftriaxone Sodium 1 gm/ (Sodium Chloride) 50 mls @ 100 mls/hr IV Q24H [facility] Last Infusion: 03/07/25 23:14 Dose: Infused Documented By: RUBEN Linezolid (Zyvox/D5w) 600 mg in 300 mls @ 300 mls/hr IV Q12H [facility] Last Infusion: 03/08/25 00:54 Dose: Infused Documented By: RUBEN Acetaminophen (Ofirmev) 1,000 mg in 100 mls @ 400 mls/hr IV Q6H PRN PRN Reason: Fever Lactulose (Lactulose 20 Gm/30 Ml Solution) 20 gm PO DAILY PRN PRN Reason: Constipation Latanoprost (Latanoprost 0.005 % Ophth Lolita 2.5 Ml Drops) 1 drop EYE-BOTH DAILY [facility] Magnesium Hydroxide (Milk Of Magnesia 30 Ml Oral.Susp) 30 ml PO DAILY PRN PRN Reason: Constipation Melatonin (Melatonin 3 Mg Tablet) 6 mg PO BEDTIME PRN PRN Reason: Insomnia Metoprolol Succinate (Metoprolol Succinate Er 50 Mg Tab.Er.24h) 50 mg PO DAILY [facility]; Protocol Mirtazapine (Mirtazapine 15 Mg Tablet) 15 mg PO BEDTIME [facility] Last Admin: 03/07/25 21:16 Dose: 15 mg Documented By: RUBEN Ondansetron HCl (Ondansetron Hcl 4 Mg/2 Ml Vial) 4 mg IVPUSH Q8H PRN PRN Reason: Nausea and Vomiting Polyethylene Glycol (Polyethylene Glycol 3350 17 Gm Powd.Pack) 17 gm PO DAILY PRN PRN Reason: Constipation Polyethylene Glycol (Polyethylene Glycol 3350 17 Gm Powd.Pack) 17 gm PO DAILY PRN PRN Reason: Constipation Polyethylene Glycol (Polyethylene Glycol 3350 17 Gm Powd.Pack) 17 gm PO Q48H [facility] Last Admin: 03/07/25 17:22 Dose: Not Given Documented By: FIDELINA Non-Admin Reason: See Note Potassium Chloride (Potassium Chloride Er 20 Meq Tab.Er.Prt) 20 meq PO DAILY [facility] Quetiapine Fumarate (Quetiapine Fumarate 25 Mg Tablet) 25 mg PO DAILY@1700 [facility] Last Admin: 03/07/25 17:22 Dose: 25 mg Documented By: FIDELINA Senna (Sennosides 8.6 Mg Tablet) 17.2 mg PO BEDTIME [facility] Last Admin: 03/07/25 21:16 Dose: 17.2 mg Documented By: RUBEN Senna (Sennosides 8.6 Mg Tablet) 17.2 mg PO BID PRN PRN Reason: Constipation Sodium Chloride (0.9 % Sodium Chloride Flush 3 Ml Syringe) 3 ml IVFLUSH QSHIFT [facility] Last Admin: 03/08/25 00:54 Dose: Not Given Documented By: RUBEN Non-Admin Reason: IV Running Vitamin D (Cholecalciferol (Vitamin D3) 25 Mcg Tablet) 25 mcg PO DAILY [facility] Labs 03/07/25 03:36 03/07/25 03:36 Microbiology Microbiology Results: Microbiology 03/06/25 22:33 Blood Culture - Preliminary Blood - Venous No growth after 24 hours. 03/06/25 22:33 Blood Culture - Preliminary Blood - Venous No growth after 24 hours. 03/06/25 Unknown Urine Culture - Preliminary Urine clean catch - Clean Catch Midstream Culture too young to evaluate. Assessment and Plan (1) UTI (urinary tract infection): Status: Acute Assessment and Plan: 89-year-old male with history of dementia, hypertension, hyperlipidemia, chronic kidney disease stage IIIA, heart failure, CAD, AFib on Eliquis, bladder cancer with suprapubic catheter last changed 03/06/2025, UTI (klebsiella, VRE, Pseudomonas), osteoarthritis, glaucoma, mood disturbance, anemia, hyperlipidemia, COPD currently resides at the [facility] in [place] and there was a complaint of a fall that was unwitnessed. Patient noted to be on anticoagulation and patient was sent into the ED for further evaluation. Patient does not present with evidence of sepsis on admission. Patient being admitted for the following medical problems: Status post fall unwitnessed on anticoagulation CT of the head and CT of the cervical spine negative for acute findings Small superficial abrasion to the left frontal area of the skull, stable UTI with history of Klebsiella, VRE and Pseudomonas/ suprapubic catheter (secondary to Bladder CA HX) Starting patient on ceftriaxone and linezolid (reviewed with pharmacist) Patient placed on precautions noting the VRE Suprap[facility]ic [facility] Pneumonia previously diagnosed with treatment initiated/ suspect aspiration Aspiration precautions in place Patient currently on ceftriaxone and linezolid (see above for UTI) Incentive spirometry as tolerated Oxygen via nasal cannula, patient recently started using oxygen at the [facility], wean as tolerated Speech therapy eval -diet started Hypertension Once med rec completed continue home medications to include amlodipine and HCTZ Cardiac low-salt diet Hyperlipidemia Continue statin once med rec completed LFTs are stable AFib Continue Eliquis and metoprolol . Telemetry Advanced stage dementia per h&P note-required IM Zyprexa due to behavioral concerns and agitation moniter closely DVT prophylaxis: Eliquis Med rec pending DNR DNI status ongoing need for stay : IV antibiotics for pneumonia and UTI with workup for possible aspiration. Quality Stroke Does the patient have a stroke diagnosis?: No Reason for No Anti-thrombotic by Day Two: N/A - Med Ordered VTE Prior VTE?: No VTE Risk Level:: Medical - moderate - high VTE Device Contraindication: N/A - Device Ordered VTE Drug Contraindication: N/A - Med Ordered
[2025-03-08] MEDS: Linezolid/D5W 600 MG/300 ML PIGGYBACK 300 MG IV ×2 (10:58→22:55)
[2025-03-08] MEDS: Latanoprost 0.005 % Ophth Sol 2.5 ML DROPS 1 DROP EYE-BOTH (13:41)
[2025-03-08] MEDS: Metoprolol Succinate ER 50 MG TAB.ER.24H PO (13:41)
[2025-03-08] MEDS: Albuterol/Iprat 2.5/0.5MG 3 ML AMPUL.NEB INHALE (14:18)
--- NOTE | 2025-03-08 14:55 | MHC.CM.PN ---
EMR REVIEWED AND PER MD ROUNDS, PATIENT IS NOT MEDICALLY CLEARED FOR DISCHARGE DUE TO MANAGEMENT OF UTI, BLOOD CULTURES PENDING.
--- NOTE | 2025-03-08 15:22 | MHC.SL.SWA ---
Speech Pathologist Impression: Risk of Aspiration, Oropharyngeal Dysphagia Risk of Aspiration Due to: Reduced Cognition Dysphasia Diet Status: UPGRADE to NDD2 Liquid Consistency and Strategies for Safe Swallow: Liquid Intake Recommendation: Thin Liquid Intake Strategies: Small Sips No Straws Solid Food Consistency: Dietary Recommendations: Grnd/Mech Altered (NDD2) Oral Medication Intake: Crushed with Puree Please contact the pharmacy regarding appropriate crushable or liquid drug formulations that are available whenever modified delivery is recommended. Compensatory Strategies and Precautions to be Taken for Safe Swallow: Sitting Upright (90 deg) No Straw Small Bites and Sips Alternate Liquids/Solids Rate of Ingestion Change Oral Check Supervision While Eating and Drinking for Safe Swallow: Total Assistance (1:1) Swallowing Recommended Treatments: Compens. Strategy Educat. Recommendation for Speech: Inpatient Speech Therapy Comment: Patient with mild-moderate oropharyngeal dysphagia, exacerbation d/t cognitive and respiratory status, prolonged mastication time and fatigue with chewing. Recommend GROUND/MECH ALTERED (NDD2) solids and CONTINUE on THIN liquids, pills CRUSHED in PUREE. Patient will need 1:1 assistance feeding, oral cavity check for any residue and strategies to promote clearance: moisten foods w/ sauces/gravies, alternate with sips of liquid as needed. Frequency/Duration: M-F Daily Date Range for Service Req: Timeline to reassess: Museum Registrar Clinican/Clinical Fellow: No Supervisory Statement: I have reviewed and agree with the student/clinical fellow's documentation: N/A Speech Language Pathologist: Scarlett Collazo M.A., CCC-SWITCH HOUSE OPERATOR
--- NOTE | 2025-03-08 15:58 | P.CDIM_ITS ---
PROVIDER RESPONSE TEXT: To clarify, the appropriate diagnosis supported by the clinical indicators: Yes, UTI is related to / associated with / due to suprapubic catheter QUERY TEXT: PHYSICIAN'S DOCUMENTATION REQUEST Date of Query: 03/08/2025 12:12 PM EST Patient Name: Maik Lynch Admit Date: 03/07/2025 Dear Sammie Wtat MD, A review of the medical record indicates additional documentation may be needed. Please review below and update the documentation accordingly. Documentation includes the conditions of UTI and suprapubic catheter. Clinical Indicators: has suprapubic catheter due to history of bladder CA Suprapubic catheter [facility] On IV Ceftriaxone and IV Zyvox Please clarify the relationship between these conditions: Yes, UTI is related to / associated with / due to suprapubic catheter No, UTI is not related to / associated with / due to suprapubic catheter Other (explain) Clinically unable to determine (explain) Thank you, Shima Dejesus RN Use of terms such as suspected, likely, concern for, or probable (associated with a specific diagnosis that is being evaluated, monitored, or treated as if it exists) are acceptable and can be coded in the inpatient setting, when documented at the time of discharge. Please use your independent medical judgment in providing your response. THIS QUERY IS PART OF THE PERMANENT MEDICAL RECORD
[2025-03-08] MEDS: 0.9 % Sodium Chloride Flush 3 ML SYRINGE IVFLUSH (17:21)
[2025-03-09] VITALS (10 sets, daily range): BP systolic 112–175; BP diastolic 58–84; PULSE 69–100; RESP 18–20; TEMP 36.3–37.7; O2SAT 91–98
[2025-03-09] MEDS: Potassium Chloride ER 20 MEQ TAB.ER.PRT PO (08:02)
[2025-03-09] MEDS: Metoprolol Succinate ER 50 MG TAB.ER.24H PO (08:03)
[2025-03-09 11:18] LABS: Chlamydia pneumoniae PCR Not Detected (Not Detect.); Coronavirus 229E PCR Not Detected (Not Detect.); Coronavirus HKU1 PCR Not Detected (Not Detect.); Coronavirus NL63 PCR Not Detected (Not Detect.); Coronavirus OC43 PCR Not Detected (Not Detect.); RSV PCR Not Detected (Not Detect.); Rhino/Enterovirus PCR Not Detected (Not Detect.)
[2025-03-09] MEDS: Linezolid/D5W 600 MG/300 ML PIGGYBACK 300 MG IV ×2 (11:27→22:06)
[2025-03-09 11:42] LABS: Influenza A H1 PCR Not Detected (Not Detect.); Influenza A H1-2009 PCR Not Detected (Not Detect.); Influenza A H3 PCR Not Detected (Not Detect.); SARS-CoV-2 PCR Not Detected (Not Detect.)
[2025-03-09] MEDS: Albuterol/Iprat 2.5/0.5MG 3 ML AMPUL.NEB INHALE ×2 (15:37→20:11)
--- NOTE | 2025-03-09 15:50 | HO.PM.IMPN ---
Subjective Subjective Date of Service: 03/09/25 Interval History: hypoxia hematuria Review of Systems seems similar , more awake Physical Exam Exam: Exam: Appearance: Alert.? Oriented X1, similar to h&P. cvs: [id number], [id number] . res: air entry diminshed , right >left abd: no rebound or guarding ,nt, bs present. ext pulses present , no cyanosis . neuro: moving ext rest of physical exam-see h&P. Vital Signs: Vital Signs: Last Vital Signs Temp 99.0 F 03/09/25 11:09 Pulse 86 03/09/25 15:43 Resp 18 03/09/25 15:43 BP 120/64 03/09/25 11:09 Pulse Ox 96 03/09/25 11:09 O2 Del Method Nasal Cannula 03/09/25 11:09 O2 Flow Rate 1 03/09/25 11:09 Oxygen Flow Rate 2 03/06/25 16:15 BMI result Body Mass Index 28.6 Objective Data Active Medications Albuterol/Ipratropium (Albuterol/Iprat 2.5/0.5mg 3 Ml Ampul.Neb) 3 ml INHALE Q4H PRN PRN Reason: Shortness of Breath/Wheezing Last Admin: 03/08/25 14:18 Dose: 3 ml Documented By: DIMITRI Albuterol/Ipratropium (Albuterol/Iprat 2.5/0.5mg 3 Ml Ampul.Neb) 3 ml INHALE RQ4H WHILE AWAKE [facility] Last Admin: 03/09/25 15:37 Dose: 3 ml Documented By: MICHELLE Amlodipine Besylate (Amlodipine Besylate 10 Mg Tablet) 10 mg PO BEDTIME [facility]; Protocol Last Admin: 03/08/25 21:09 Dose: 10 mg Documented By: LATONIA Apixaban (Apixaban 2.5 Mg Tablet) 2.5 mg PO BID [facility] On Hold: 03/09/25 10:03 Last Admin: 03/09/25 08:05 Dose: 2.5 mg Documented By: FÉLIX Artificial Tears (Artificial Tears 15 Ml Drops) 1 drop EYE-BOTH QID PRN PRN Reason: Dry Eyes Ascorbic Acid (Ascorbic Acid 500 Mg Tablet) 500 mg PO DAILY [facility] Last Admin: 03/09/25 08:05 Dose: 500 mg Documented By: FÉLIX Atorvastatin Calcium (Atorvastatin Calcium 20 Mg Tablet) 20 mg PO BEDTIME [facility] Last Admin: 03/08/25 21:09 Dose: 20 mg Documented By: LATONIA Budesonide (Budesonide 0.5 Mg/2 Ml Ampul.Neb) 0.5 mg INHALE RBID [facility] Last Admin: 03/09/25 08:44 Dose: 0.5 mg Documented By: SCKILEYLRonald Calcium Carbonate (Calcium Carbonate 750 Mg Tab.Chew) 750 mg PO Q4H PRN PRN Reason: Heartburn Cyanocobalamin (Cyanocobalamin (Vitamin B-12) 1,000 Mcg Tablet) 1,000 mcg PO DAILY [facility] Last Admin: 03/09/25 08:04 Dose: 1,000 mcg Documented By: FÉLIX Docusate Sodium (Docusate Sodium 100 Mg Capsule) 100 mg PO BID [facility] Last Admin: 03/09/25 08:05 Dose: 100 mg Documented By: FÉLIX Ezetimibe (Ezetimibe 10 Mg Tablet) 10 mg PO DAILY [facility] Last Admin: 03/09/25 08:03 Dose: 10 mg Documented By: FÉLIX Escitalopram Oxalate (Escitalopram Oxalate 10 Mg Tablet) 10 mg PO DAILY [facility] Last Admin: 03/09/25 08:05 Dose: 10 mg Documented By: FÉLIX Folic Acid (Folic Acid 1 Mg Tablet) 1 mg PO DAILY [facility] Last Admin: 03/09/25 08:02 Dose: 1 mg Documented By: FÉLIX Ceftriaxone Sodium 1 gm/ (Sodium Chloride) 50 mls @ 100 mls/hr IV Q24H [facility] Last Infusion: 03/08/25 23:53 Dose: Infused Documented By: LATONIA Linezolid (Zyvox/D5w) 600 mg in 300 mls @ 300 mls/hr IV Q12H [facility] Last Infusion: 03/09/25 12:48 Dose: Infused Documented By: FÉLIX Acetaminophen (Ofirmev) 1,000 mg in 100 mls @ 400 mls/hr IV Q6H PRN PRN Reason: Fever Lactulose (Lactulose 20 Gm/30 Ml Solution) 20 gm PO DAILY PRN PRN Reason: Constipation Latanoprost (Latanoprost 0.005 % Ophth Lolita 2.5 Ml Drops) 1 drop EYE-BOTH DAILY [facility] Last Admin: 03/09/25 11:32 Dose: Not Given Documented By: FÉLIX Non-Admin Reason: See Note Magnesium Hydroxide (Milk Of Magnesia 30 Ml Oral.Susp) 30 ml PO DAILY PRN PRN Reason: Constipation Melatonin (Melatonin 3 Mg Tablet) 6 mg PO BEDTIME PRN PRN Reason: Insomnia Metoprolol Succinate (Metoprolol Succinate Er 50 Mg Tab.Er.24h) 50 mg PO DAILY [facility]; Protocol Last Admin: 03/09/25 08:03 Dose: 50 mg Documented By: FÉLIX Mirtazapine (Mirtazapine 15 Mg Tablet) 15 mg PO BEDTIME [facility] Last Admin: 03/08/25 21:09 Dose: 15 mg Documented By: LATONIA Ondansetron HCl (Ondansetron Hcl 4 Mg/2 Ml Vial) 4 mg IVPUSH Q8H PRN PRN Reason: Nausea and Vomiting Polyethylene Glycol (Polyethylene Glycol 3350 17 Gm Powd.Pack) 17 gm PO DAILY PRN PRN Reason: Constipation Polyethylene Glycol (Polyethylene Glycol 3350 17 Gm Powd.Pack) 17 gm PO Q48H [facility] Last Admin: 03/09/25 14:04 Dose: Not Given Documented By: FÉLIX Non-Admin Reason: Patient Asleep Potassium Chloride (Potassium Chloride Er 20 Meq Tab.Er.Prt) 20 meq PO DAILY [facility] Last Admin: 03/09/25 08:02 Dose: 20 meq Documented By: FÉLIX Quetiapine Fumarate (Quetiapine Fumarate 25 Mg Tablet) 25 mg PO DAILY@1700 [facility] Last Admin: 03/08/25 17:20 Dose: 25 mg Documented By: DANGELO Senna (Sennosides 8.6 Mg Tablet) 17.2 mg PO BEDTIME [facility] Last Admin: 03/08/25 21:09 Dose: 17.2 mg Documented By: LATONIA Senna (Sennosides 8.6 Mg Tablet) 17.2 mg PO BID PRN PRN Reason: Constipation Sodium Chloride (0.9 % Sodium Chloride Flush 3 Ml Syringe) 3 ml IVFLUSH QSHIFT [facility] Last Admin: 03/09/25 08:19 Dose: Not Given Documented By: FÉLIX Non-Admin Reason: IV Running Vitamin D (Cholecalciferol (Vitamin D3) 25 Mcg Tablet) 25 mcg PO DAILY [facility] Last Admin: 03/09/25 08:03 Dose: 25 mcg Documented By: FÉLIX Labs 03/07/25 03:36 03/07/25 03:36 Labs: Laboratory Results - last 24 hr 03/08/25 17:28 Respiratory Panel [place] See Note Adenovirus (Rapid PCR) Not Detected B.pert (TEM-PCR) Not Detected B.parapertussis DNA PCR Not Detected C. pneumoniae DNA (PCR) Not Detected Coronavirus OC43 (PCR) Not Detected Coronavirus HKU1 (PCR) Not Detected Coronavirus 229E (PCR) Not Detected Coronavirus NL63 (PCR) Not Detected Human Metapneumovir PCR Not Detected Influenza A (RT-PCR) Not Detected Influenza A (H1) PCR Not Detected Influ A (H1/09) PCR Not Detected Influenza A (H3) PCR Not Detected Influenza B (RT-PCR) Not Detected M. pneumoniae (PCR) Not Detected Parainfluenza 1 (PCR) Not Detected Parainfluenza 2 (PCR) Not Detected Parainfluenza 3 (PCR) Not Detected Parainfluenza 4 (PCR) Not Detected RSV (PCR) Not Detected Entero/Rhino (PCR) Not Detected SARS-CoV-2 RNA (RT-PCR) Not Detected Microbiology Microbiology Results: Microbiology 03/06/25 22:33 Blood Culture - Preliminary Blood - Venous No growth after 48 hours. 03/06/25 22:33 Blood Culture - Preliminary Blood - Venous No growth after 48 hours. Assessment and Plan (1) UTI (urinary tract infection): Status: Acute Assessment and Plan: 89-year-old male with history of dementia, hypertension, hyperlipidemia, chronic kidney disease stage IIIA, heart failure, CAD, AFib on Eliquis, bladder cancer with suprapubic catheter last changed 03/06/2025, UTI (klebsiella, VRE, Pseudomonas), osteoarthritis, glaucoma, mood disturbance, anemia, hyperlipidemia, COPD currently resides at the [facility] in [place] and there was a complaint of a fall that was unwitnessed. Patient noted to be on anticoagulation and patient was sent into the ED for further evaluation. Patient does not present with evidence of sepsis on admission. Patient being admitted for the following medical problems: Status post fall unwitnessed on anticoagulation CT of the head and CT of the cervical spine negative for acute findings Small superficial abrasion to the left frontal area of the skull, stable UTI with history of Klebsiella, VRE and Pseudomonas/ suprapubic catheter (secondary to Bladder CA HX) Starting patient on ceftriaxone and linezolid (reviewed with pharmacist) Patient placed on precautions noting the VRE Suprapubic catheter [facility] hypoxemic respiratory failure sec Pneumonia previously diagnosed with treatment initiated/ suspect aspiration Aspiration precautions in place Patient currently on ceftriaxone and linezolid (see above for UTI) Incentive spirometry as tolerated taper Oxygen via nasal cannula, patient recently started using oxygen at the [facility], wean as tolerated Speech therapy eval -diet started Hypertension Once med rec completed continue home medications to include amlodipine and HCTZ Cardiac low-salt diet Hyperlipidemia Continue statin once med rec completed LFTs are stable AFib Continue Eliquis and metoprolol . Telemetry Advanced stage dementia seems comfortable moniter closely DVT prophylaxis: Eliquis Med rec pending DNR DNI status ongoing need for stay :hypoxia /pneumonia -requiring oxygen, IV antibiotics for pneumonia and UTI with workup for possible aspiration. Quality Stroke Does the patient have a stroke diagnosis?: No Reason for No Anti-thrombotic by Day Two: N/A - Med Ordered VTE Prior VTE?: No VTE Risk Level:: Medical - moderate - high VTE Device Contraindication: N/A - Device Ordered VTE Drug Contraindication: N/A - Med Ordered
[2025-03-09 16:52] LABS: Hematocrit 35.8 % (42.0-52.0); Hemoglobin 12.3 g/dl (14.0-18.0)
[2025-03-09] MEDS: 0.9 % Sodium Chloride Flush 3 ML SYRINGE IVFLUSH ×2 (17:50→21:16)
--- NOTE | 2025-03-09 23:38 | W.PM.IDCN ---
History of Present Illness Data of Consult Service Date: 03/09/25 Requesting physician: Sammie Watt Primary Care Provider: None Physician HPI Reason for consult: RLL infiltrate,aspiration possible He presents from [facility] after fall and found ER 03/06 to have hypoxia to 70s. He had been on Augmentin 4 days treating pneumonia outpatient. He has no fever but leukocytosis to 13.2, He also has prior h/o VRE past Blood cultures are negative and urine culture suprapubic shows multiple organisms/contaminant. CT shows no obstruction bladder and urine shows some bacteria. Review of Systems Review of Systems: Yes Unobtainable due to mental condition [facility] Past Medical History Medical History Mucus plugging of bronchi Respiratory failure with hypoxia and hypercapnia Atelectasis of left lung BPH (benign prostatic hyperplasia) Frequent falls On beta priscilla at home Overweight (BMI 25.0-29.9) Depression Urothelial carcinoma of bladder Vitamin B12 deficiency Vitamin D deficiency GERD without esophagitis Anemia Primary osteoarthritis, right shoulder Osteoarthritis of both knees Chronic kidney disease, stage III (moderate) Impaired fasting glucose Elevated liver enzymes Subdural hematoma Benign essential hypertension Pure hypercholesterolemia Coronary artery disease Family History Family History Father CVD (cardiovascular disease) Mother Hypertension Surgical History Surgical History History of tonsillectomy History of transurethral resection of bladder tumor (TURBT) History of hip surgery History of transurethral resection of prostate History of shoulder surgery Social History Social History Household Members: Caregiver Housing: Assisted Living Facility Housing Other:: [facility] Are you a primary care team assistant to a significant other at home: No Do you presently have visiting nurse or other home services: Yes Alcohol intake: former Patient Tobacco Use Status: Former Tobacco user Advance Directives Date on File: 08/18/22 service: Yes Travel History Ebola Risk: Travel/Contact With Anyone From Affected Area/s: No Has Patient Experienced Ebola Symptoms: No Meds Allergies Allergy/AdvReac Type Severity Reaction Status Date / Time lisinopril Allergy Unknown Verified 03/06/25 16:17 Active Medications: Current Medications Albuterol/Ipratropium (Albuterol/Iprat 2.5/0.5mg 3 Ml Ampul.Neb) 3 ml INHALE Q4H PRN PRN Reason: Shortness of Breath/Wheezing Last Admin: 03/08/25 14:18 Dose: 3 ml Albuterol/Ipratropium (Albuterol/Iprat 2.5/0.5mg 3 Ml Ampul.Neb) 3 ml INHALE RQ4H WHILE AWAKE [facility] Last Admin: 03/09/25 20:11 Dose: 3 ml Amlodipine Besylate (Amlodipine Besylate 10 Mg Tablet) 10 mg PO BEDTIME [facility]; Protocol Last Admin: 03/09/25 21:15 Dose: 10 mg Apixaban (Apixaban 2.5 Mg Tablet) 2.5 mg PO BID [facility] On Hold: 03/09/25 10:03 Last Admin: 03/09/25 08:05 Dose: 2.5 mg Artificial Tears (Artificial Tears 15 Ml Drops) 1 drop EYE-BOTH QID PRN PRN Reason: Dry Eyes Ascorbic Acid (Ascorbic Acid 500 Mg Tablet) 500 mg PO DAILY [facility] Last Admin: 03/09/25 08:05 Dose: 500 mg Atorvastatin Calcium (Atorvastatin Calcium 20 Mg Tablet) 20 mg PO BEDTIME [facility] Last Admin: 03/09/25 21:15 Dose: 20 mg Budesonide (Budesonide 0.5 Mg/2 Ml Ampul.Neb) 0.5 mg INHALE RBID [facility] Last Admin: 03/09/25 20:11 Dose: 0.5 mg Calcium Carbonate (Calcium Carbonate 750 Mg Tab.Chew) 750 mg PO Q4H PRN PRN Reason: Heartburn Cyanocobalamin (Cyanocobalamin (Vitamin B-12) 1,000 Mcg Tablet) 1,000 mcg PO DAILY [facility] Last Admin: 03/09/25 08:04 Dose: 1,000 mcg Docusate Sodium (Docusate Sodium 100 Mg Capsule) 100 mg PO BID [facility] Last Admin: 03/09/25 21:21 Dose: Not Given Ezetimibe (Ezetimibe 10 Mg Tablet) 10 mg PO DAILY [facility] Last Admin: 03/09/25 08:03 Dose: 10 mg Escitalopram Oxalate (Escitalopram Oxalate 10 Mg Tablet) 10 mg PO DAILY [facility] Last Admin: 03/09/25 08:05 Dose: 10 mg Folic Acid (Folic Acid 1 Mg Tablet) 1 mg PO DAILY [facility] Last Admin: 03/09/25 08:02 Dose: 1 mg Acetaminophen (Ofirmev) 1,000 mg in 100 mls @ 400 mls/hr IV Q6H PRN PRN Reason: Fever Piperacillin Sod/Tazobactam (Sod 3.375 gm/ Sodium Chloride) 50 mls @ 100 mls/hr IV Q12H [facility] Lactulose (Lactulose 20 Gm/30 Ml Solution) 20 gm PO DAILY PRN PRN Reason: Constipation Latanoprost (Latanoprost 0.005 % Ophth Lolita 2.5 Ml Drops) 1 drop EYE-BOTH DAILY [facility] Last Admin: 03/09/25 11:32 Dose: Not Given Magnesium Hydroxide (Milk Of Magnesia 30 Ml Oral.Susp) 30 ml PO DAILY PRN PRN Reason: Constipation Melatonin (Melatonin 3 Mg Tablet) 6 mg PO BEDTIME PRN PRN Reason: Insomnia Metoprolol Succinate (Metoprolol Succinate Er 50 Mg Tab.Er.24h) 50 mg PO DAILY [facility]; Protocol Last Admin: 03/09/25 08:03 Dose: 50 mg Mirtazapine (Mirtazapine 15 Mg Tablet) 15 mg PO BEDTIME [facility] Last Admin: 03/09/25 21:16 Dose: 15 mg Ondansetron HCl (Ondansetron Hcl 4 Mg/2 Ml Vial) 4 mg IVPUSH Q8H PRN PRN Reason: Nausea and Vomiting Polyethylene Glycol (Polyethylene Glycol 3350 17 Gm Powd.Pack) 17 gm PO DAILY PRN PRN Reason: Constipation Polyethylene Glycol (Polyethylene Glycol 3350 17 Gm Powd.Pack) 17 gm PO Q48H [facility] Last Admin: 03/09/25 14:04 Dose: Not Given Potassium Chloride (Potassium Chloride Er 20 Meq Tab.Er.Prt) 20 meq PO DAILY [facility] Last Admin: 03/09/25 08:02 Dose: 20 meq Quetiapine Fumarate (Quetiapine Fumarate 25 Mg Tablet) 25 mg PO DAILY@1700 [facility] Last Admin: 03/09/25 17:49 Dose: 25 mg Senna (Sennosides 8.6 Mg Tablet) 17.2 mg PO BEDTIME [facility] Last Admin: 03/09/25 21:15 Dose: 17.2 mg Senna (Sennosides 8.6 Mg Tablet) 17.2 mg PO BID PRN PRN Reason: Constipation Sodium Chloride (0.9 % Sodium Chloride Flush 3 Ml Syringe) 3 ml IVFLUSH QSHIFT [facility] Last Admin: 03/09/25 21:16 Dose: 3 ml Vitamin D (Cholecalciferol (Vitamin D3) 25 Mcg Tablet) 25 mcg PO DAILY [facility] Last Admin: 03/09/25 08:03 Dose: 25 mcg Home Medications ?Medication ?Instructions ?Recorded ?Confirmed ?Last Taken ?Type ezetimibe 10 mg tablet 10 mg PO DAILY 03/25/20 03/07/25 03/06/25 09:00 History latanoprost 0.005 % eye drops 1 drp ophthalmic (eye) DAILY 07/03/20 03/07/25 03/06/25 09:00 History acetaminophen 325 mg tablet 650 mg PO BID pain 08/06/22 03/07/25 03/06/25 09:00 History amlodipine 10 mg tablet 10 mg PO BEDTIME 08/06/22 03/07/25 03/05/25 History cyanocobalamin (vitamin B-12) 1,000 mcg PO DAILY 08/06/22 03/07/25 03/06/25 09:00 History 1,000 mcg tablet hydrochlorothiazide 25 mg tablet 25 mg PO DAILY 08/06/22 03/07/25 03/06/25 09:00 History metoprolol succinate 50 mg 50 mg PO DAILY 08/06/22 03/07/25 03/06/25 09:00 History tablet,extended release 24 hr folic acid 1 mg tablet 1 mg PO DAILY 09/10/22 03/07/25 03/06/25 09:00 History methenamine hippurate 1 gram tablet 1 g PO BID 03/09/23 03/07/25 03/06/25 09:00 History cholecalciferol (vitamin D3) 25 25 mcg PO DAILY 12/03/23 03/07/25 03/06/25 09:00 History mcg (1,000 unit) tablet potassium chloride 20 mEq 20 meq PO DAILY 12/03/23 03/07/25 03/06/25 09:00 History tablet,extended release Lactobacillus acidoph-L.bulgaricus 1 tab PO TID 03/07/25 03/07/25 03/06/25 13:00 History 1 million cell tablet acetaminophen 325 mg tablet 650 mg PO Q6H PRN Fever Or Pain 03/07/25 03/07/25 Unknown History albuterol sulfate 2.5 mg/3 mL 2.5 mg inhalation Q4H PRN 03/07/25 03/07/25 Unknown History (0.083 %) solution for nebulization Shortness Of Breath Or Wheezing albuterol sulfate 90 mcg/actuation 2 inh inhalation Q4H PRN COPD/CHF 03/07/25 03/07/25 Unknown History breath activated powder inhaler amoxicillin 500 mg-potassium 1 tab PO BID 03/07/25 03/07/25 03/06/25 09:00 History clavulanate 125 mg tablet apixaban 2.5 mg tablet (Eliquis) 2.5 mg PO Q12H 03/07/25 03/07/25 03/06/25 09:00 History ascorbic acid (vitamin C) 500 mg 500 mg PO DAILY 03/07/25 03/07/25 03/06/25 09:00 History tablet atorvastatin 20 mg tablet 20 mg PO BEDTIME 03/07/25 03/07/25 03/05/25 History dextromethorphan-guaifenesin 10 10 ml PO Q4H PRN Cough 03/07/25 03/07/25 Unknown History mg-100 mg/5 mL oral liquid (Tusnel Diabetic) escitalopram oxalate 10 mg tablet 10 mg PO DAILY 03/07/25 03/07/25 03/06/25 09:00 History lactulose 10 gram/15 mL oral 30 ml PO DAILY PRN Constipation 03/07/25 03/07/25 03/06/25 06:32 History solution mirtazapine 15 mg tablet 15 mg PO BEDTIME 03/07/25 03/07/25 03/05/25 History polyethylene glycol 3350 17 17 g PO DAILY PRN Constipation 03/07/25 03/07/25 Unknown History gram/dose oral powder (Miralax) polyethylene glycol 3350 17 17 g PO Q OTHER DAY 03/07/25 03/07/25 03/06/25 09:00 History gram/dose oral powder (Miralax) polyvinyl alcohol 1.4 % eye drops 1 drp ophthalmic (eye) QID PRN Dry 03/07/25 03/07/25 Unknown History Eyes quetiapine 25 mg tablet 25 mg PO DAILY@1700 12/11/25 12/11/25 12/09/25 17:00 History sennosides 8.6 mg tablet (senna) 17.2 mg PO BID PRN Constipation 03/07/25 03/07/25 Unknown History Physical Exam Vital Signs: Vital Signs: Last Vital Signs Temp 97.4 F 03/09/25 21:10 Pulse 78 03/09/25 21:10 Resp 18 03/09/25 21:10 BP 138/74 03/09/25 21:10 Pulse Ox 92 03/09/25 21:10 O2 Del Method Nasal Cannula 03/09/25 21:10 O2 Flow Rate 3 03/09/25 21:10 Oxygen Flow Rate 2 03/06/25 16:15 BMI result Body Mass Index 28.6 Const: General: cooperative HEENT: Head: Yes normal to inspection Face and sinus: Yes normal facial exam Mouth: Normal oral and palatal mucosa present Teeth and gingiva: dentition normal Eyes: General: appearance normal, both eyes and all related structures Pupils: Equal, round and reactive pupils present Resp: Effort & Inspection: normal respiratory effort Cardio: Rate: regular rate Rhythm: regular rhythm GI: Palpation (GI): Soft to palpation and nontender : General: Yes no CVA tenderness Back/Spine/Pelvis: Back: no CVA tenderness Skin: General skin exam: no rashes or lesions noted Neuro: General: moves all extremities Cranial nerves: Yes Equal, round and reactive pupils present Extrem: General: Yes normal to inspection Psych: Other: not good historian Results Labs 03/11/25 08:22 03/11/25 08:22 Labs: Short CBC 03/09/25 Range/Units 16:18 Hgb 12.3 L (14.0-18.0) g/dl Hct 35.8 L (42.0-52.0) % Microbiology Microbiology Results: Microbiology 03/06/25 22:33 Blood - Venous Blood Culture - Preliminary No growth after 48 hours. 03/06/25 22:33 Blood - Venous Blood Culture - Preliminary No growth after 48 hours. 03/06/25 Unknown Urine clean catch - Clean Catch Midstream Urine Culture - Final Assessment and Plan (1) Chronic kidney disease, stage III (moderate): Qualifiers: Chronic kidney disease stage 3 subtype: stage 3a (GFR 45-59) Qualified Code(s): N18.31 - Chronic kidney disease, stage 3a Status: Acute (2) Pneumonia: Qualifiers: Laterality: unspecified laterality Lung location: unspecified part of lung Pneumonia type: due to unspecified organism Qualified Code(s): J18.9 - Pneumonia, unspecified organism Status: Acute Plan Some aspiration concern pneumonia with hypoxia,RLL There are possible gram negative and anerobes with aspiration. Urine shows just signs of contamination at this time Would stop Ceftraxone to use piperacillin/tazobactam for broader gram negative and anerobic coverage for aspiration Would also check nares MRSA. Would cover possible MRSA and atypicals with Doxycycline at this time. Check urine Legionella. I stopped linezolid as no evidence of resistant gram positive at this time.
[2025-03-10] VITALS (7 sets, daily range): BP systolic 119–141; BP diastolic 58–72; PULSE 66–80; RESP 16–18; TEMP 35.9–36.8; O2SAT 91–98
[2025-03-10] MEDS: 0.9 % Sodium Chloride Flush 3 ML SYRINGE IVFLUSH ×3 (07:51→20:04)
[2025-03-10] MEDS: Potassium Chloride ER 20 MEQ TAB.ER.PRT PO (07:53)
[2025-03-10] MEDS: Metoprolol Succinate ER 50 MG TAB.ER.24H PO (07:54)
[2025-03-10 08:29] LABS: Hematocrit 34.8 % (42.0-52.0); Hemoglobin 11.8 g/dl (14.0-18.0); Mean Corpuscular HGB Conc 33.9 g/dl (31.0-36.0); Mean Corpuscular Hemoglobin 32.9 pg (27.0-33.0); Mean Corpuscular Volume 96.9 fL (80.0-98.0); NRBC Abs Auto 0.000 X10*3/uL (0.0-0.012); NRBC Pct Auto 0.0 /100WBC (0.0-0.2); Platelet Count 166 X10*3/uL (160-400); Red Blood Count 3.59 X10*6/uL (4.60-5.80); White Blood Count 12.8 X10*3/uL (4.8-10.8)
[2025-03-10] MEDS: Albuterol/Iprat 2.5/0.5MG 3 ML AMPUL.NEB INHALE ×3 (09:31→19:32)
[2025-03-10 10:01] LABS: MRSA Nasal PCR POSITIVE (Negative); SA Nasal PCR POSITIVE (Negative)
--- NOTE | 2025-03-10 11:38 | PM.UROCN ---
History of Present Illness Consult details Consult date: 03/10/25 Narrative: CC: Hematuria 89-year-old male [facility] resident Known to Urology Suprapubic tube for urinary retention Prior bladder cancer 2017 AFib on Eliquis Admitted through emergency room after fall that was unwitnessed. Patient had been attempting to transfer from wheelchair to bed when he slipped Emergency room evaluation showed significant elevation left hemidiaphragm with compressive atelectasis. UA 2+ protein, 3+ heme, 2+ leuk esterase and 1+ bacteria consistent with chronic colonization. Urine culture performed - negative Probable pneumonia Has had some mild hematuria Recommend tranexamic acid 650 mg t.i.d. for 2-3 days. He may continue on Eliquis during therapy. Review of Systems Constitutional: Constitutional: Reports as per HPI and Reports no additional constitutional complaints Cardiovascular: Cardiovascular: Reports as per HPI and Reports no additional cardiovascular complaints Respiratory: Respiratory: Reports as per HPI and Reports no additional respiratory complaints Gastrointestinal: Gastrointestinal: Reports as per HPI and Reports no additional gastrointestinal complaints Genitourinary: Genitourinary: Reports as per HPI Musculoskeletal: Musculoskeletal: Reports no additional musculoskeletal complaints and Reports as per HPI Neurologic: Reports system reviewed and no additional complaints, except as documented and Reports as per HPI PMFSH Past Medical History Medical History Mucus plugging of bronchi Respiratory failure with hypoxia and hypercapnia Atelectasis of left lung BPH (benign prostatic hyperplasia) Frequent falls On beta priscilla at home Overweight (BMI 25.0-29.9) Depression Urothelial carcinoma of bladder Vitamin B12 deficiency Vitamin D deficiency GERD without esophagitis Anemia Primary osteoarthritis, right shoulder Osteoarthritis of both knees Chronic kidney disease, stage III (moderate) Impaired fasting glucose Elevated liver enzymes Subdural hematoma Benign essential hypertension Pure hypercholesterolemia Coronary artery disease Family History Family History Father CVD (cardiovascular disease) Mother Hypertension Surgical History Surgical History History of tonsillectomy History of transurethral resection of bladder tumor (TURBT) History of hip surgery History of transurethral resection of prostate History of shoulder surgery Social History Social History Household Members: Caregiver Housing: Assisted Living Facility Housing Other:: [facility] Are you a primary family day care worker to a significant other at home: No Do you presently have visiting nurse or other home services: Yes Alcohol intake: former Patient Tobacco Use Status: Former Tobacco user Advance Directives Date on File: 08/18/22 service: Yes Travel History Ebola Risk: Travel/Contact With Anyone From Affected Area/s: No Has Patient Experienced Ebola Symptoms: No Meds Allergies Allergy/AdvReac Type Severity Reaction Status Date / Time lisinopril Allergy Unknown Verified 03/06/25 16:17 Active Medications: Current Medications Albuterol/Ipratropium (Albuterol/Iprat 2.5/0.5mg 3 Ml Ampul.Neb) 3 ml INHALE Q4H PRN PRN Reason: Shortness of Breath/Wheezing Last Admin: 03/08/25 14:18 Dose: 3 ml Albuterol/Ipratropium (Albuterol/Iprat 2.5/0.5mg 3 Ml Ampul.Neb) 3 ml INHALE RQ4H WHILE AWAKE [facility] Last Admin: 03/10/25 09:31 Dose: 3 ml Amlodipine Besylate (Amlodipine Besylate 10 Mg Tablet) 10 mg PO BEDTIME [facility]; Protocol Last Admin: 03/09/25 21:15 Dose: 10 mg Apixaban (Apixaban 2.5 Mg Tablet) 2.5 mg PO BID [facility] On Hold: 03/09/25 10:03 Last Admin: 03/09/25 08:05 Dose: 2.5 mg Artificial Tears (Artificial Tears 15 Ml Drops) 1 drop EYE-BOTH QID PRN PRN Reason: Dry Eyes Ascorbic Acid (Ascorbic Acid 500 Mg Tablet) 500 mg PO DAILY [facility] Last Admin: 03/10/25 07:53 Dose: 500 mg Atorvastatin Calcium (Atorvastatin Calcium 20 Mg Tablet) 20 mg PO BEDTIME [facility] Last Admin: 03/09/25 21:15 Dose: 20 mg Budesonide (Budesonide 0.5 Mg/2 Ml Ampul.Neb) 0.5 mg INHALE RBID [facility] Last Admin: 03/10/25 09:31 Dose: 0.5 mg Calcium Carbonate (Calcium Carbonate 750 Mg Tab.Chew) 750 mg PO Q4H PRN PRN Reason: Heartburn Cyanocobalamin (Cyanocobalamin (Vitamin B-12) 1,000 Mcg Tablet) 1,000 mcg PO DAILY [facility] Last Admin: 03/10/25 07:54 Dose: 1,000 mcg Docusate Sodium (Docusate Sodium 100 Mg Capsule) 100 mg PO BID [facility] Last Admin: 03/10/25 08:06 Dose: Not Given Ezetimibe (Ezetimibe 10 Mg Tablet) 10 mg PO DAILY [facility] Last Admin: 03/10/25 07:54 Dose: 10 mg Escitalopram Oxalate (Escitalopram Oxalate 10 Mg Tablet) 10 mg PO DAILY [facility] Last Admin: 03/10/25 07:54 Dose: 10 mg Folic Acid (Folic Acid 1 Mg Tablet) 1 mg PO DAILY [facility] Last Admin: 03/10/25 07:54 Dose: 1 mg Acetaminophen (Ofirmev) 1,000 mg in 100 mls @ 400 mls/hr IV Q6H PRN PRN Reason: Fever Piperacillin Sod/Tazobactam (Sod 3.375 gm/ Sodium Chloride) 50 mls @ 100 mls/hr IV Q6H [facility] Last Infusion: 03/10/25 08:28 Dose: Infused Doxycycline Hyclate 100 mg/ (Sodium Chloride) 250 mls @ 166.67 mls/hr IV Q12H [facility] Last Admin: 03/10/25 11:18 Dose: 166.67 mls/hr Lactulose (Lactulose 20 Gm/30 Ml Solution) 20 gm PO DAILY PRN PRN Reason: Constipation Latanoprost (Latanoprost 0.005 % Ophth Lolita 2.5 Ml Drops) 1 drop EYE-BOTH DAILY [facility] Last Admin: 03/10/25 09:00 Dose: Not Given Magnesium Hydroxide (Milk Of Magnesia 30 Ml Oral.Susp) 30 ml PO DAILY PRN PRN Reason: Constipation Melatonin (Melatonin 3 Mg Tablet) 6 mg PO BEDTIME PRN PRN Reason: Insomnia Metoprolol Succinate (Metoprolol Succinate Er 50 Mg Tab.Er.24h) 50 mg PO DAILY [facility]; Protocol Last Admin: 03/10/25 07:54 Dose: 50 mg Mirtazapine (Mirtazapine 15 Mg Tablet) 15 mg PO BEDTIME [facility] Last Admin: 03/09/25 21:16 Dose: 15 mg Ondansetron HCl (Ondansetron Hcl 4 Mg/2 Ml Vial) 4 mg IVPUSH Q8H PRN PRN Reason: Nausea and Vomiting Polyethylene Glycol (Polyethylene Glycol 3350 17 Gm Powd.Pack) 17 gm PO DAILY PRN PRN Reason: Constipation Polyethylene Glycol (Polyethylene Glycol 3350 17 Gm Powd.Pack) 17 gm PO Q48H [facility] Last Admin: 03/09/25 14:04 Dose: Not Given Potassium Chloride (Potassium Chloride Er 20 Meq Tab.Er.Prt) 20 meq PO DAILY [facility] Last Admin: 03/10/25 07:53 Dose: 20 meq Quetiapine Fumarate (Quetiapine Fumarate 25 Mg Tablet) 25 mg PO DAILY@1700 [facility] Last Admin: 03/09/25 17:49 Dose: 25 mg Senna (Sennosides 8.6 Mg Tablet) 17.2 mg PO BEDTIME [facility] Last Admin: 03/09/25 21:15 Dose: 17.2 mg Senna (Sennosides 8.6 Mg Tablet) 17.2 mg PO BID PRN PRN Reason: Constipation Sodium Chloride (0.9 % Sodium Chloride Flush 3 Ml Syringe) 3 ml IVFLUSH QSHIFT [facility] Last Admin: 03/10/25 07:51 Dose: 3 ml Vitamin D (Cholecalciferol (Vitamin D3) 25 Mcg Tablet) 25 mcg PO DAILY [facility] Last Admin: 03/10/25 07:54 Dose: 25 mcg Home Medications ?Medication ?Instructions ?Recorded ?Confirmed ?Last Taken ?Type ezetimibe 10 mg tablet 10 mg PO DAILY 03/25/20 03/07/25 03/06/25 09:00 History latanoprost 0.005 % eye drops 1 drp ophthalmic (eye) DAILY 07/03/20 03/07/25 03/06/25 09:00 History acetaminophen 325 mg tablet 650 mg PO BID pain 08/06/22 03/07/25 03/06/25 09:00 History amlodipine 10 mg tablet 10 mg PO BEDTIME 08/06/22 03/07/25 03/05/25 History cyanocobalamin (vitamin B-12) 1,000 mcg PO DAILY 08/06/22 03/07/25 03/06/25 09:00 History 1,000 mcg tablet hydrochlorothiazide 25 mg tablet 25 mg PO DAILY 08/06/22 03/07/25 03/06/25 09:00 History metoprolol succinate 50 mg 50 mg PO DAILY 08/06/22 03/07/25 03/06/25 09:00 History tablet,extended release 24 hr folic acid 1 mg tablet 1 mg PO DAILY 09/10/22 03/07/25 03/06/25 09:00 History methenamine hippurate 1 gram tablet 1 g PO BID 03/09/23 03/07/25 03/06/25 09:00 History cholecalciferol (vitamin D3) 25 25 mcg PO DAILY 12/03/23 03/07/25 03/06/25 09:00 History mcg (1,000 unit) tablet potassium chloride 20 mEq 20 meq PO DAILY 12/03/23 03/07/25 03/06/25 09:00 History tablet,extended release Lactobacillus acidoph-L.bulgaricus 1 tab PO TID 03/07/25 03/07/25 03/06/25 13:00 History 1 million cell tablet acetaminophen 325 mg tablet 650 mg PO Q6H PRN Fever Or Pain 03/07/25 03/07/25 Unknown History albuterol sulfate 2.5 mg/3 mL 2.5 mg inhalation Q4H PRN 03/07/25 03/07/25 Unknown History (0.083 %) solution for nebulization Shortness Of Breath Or Wheezing albuterol sulfate 90 mcg/actuation 2 inh inhalation Q4H PRN COPD/CHF 03/07/25 03/07/25 Unknown History breath activated powder inhaler amoxicillin 500 mg-potassium 1 tab PO BID 03/07/25 03/07/25 03/06/25 09:00 History clavulanate 125 mg tablet apixaban 2.5 mg tablet (Eliquis) 2.5 mg PO Q12H 03/07/25 03/07/25 03/06/25 09:00 History ascorbic acid (vitamin C) 500 mg 500 mg PO DAILY 03/07/25 03/07/25 03/06/25 09:00 History tablet atorvastatin 20 mg tablet 20 mg PO BEDTIME 03/07/25 03/07/25 03/05/25 History dextromethorphan-guaifenesin 10 10 ml PO Q4H PRN Cough 03/07/25 03/07/25 Unknown History mg-100 mg/5 mL oral liquid ([place] Diabetic) escitalopram oxalate 10 mg tablet 10 mg PO DAILY 03/07/25 03/07/25 03/06/25 09:00 History lactulose 10 gram/15 mL oral 30 ml PO DAILY PRN Constipation 03/07/25 03/07/25 03/06/25 06:32 History solution mirtazapine 15 mg tablet 15 mg PO BEDTIME 03/07/25 03/07/25 03/05/25 History polyethylene glycol 3350 17 17 g PO DAILY PRN Constipation 03/07/25 03/07/25 Unknown History gram/dose oral powder (Miralax) polyethylene glycol 3350 17 17 g PO Q OTHER DAY 03/07/25 03/07/25 03/06/25 09:00 History gram/dose oral powder (Miralax) polyvinyl alcohol 1.4 % eye drops 1 drp ophthalmic (eye) QID PRN Dry 03/07/25 03/07/25 Unknown History Eyes quetiapine 25 mg tablet 25 mg PO DAILY@1700 03/07/25 03/07/25 03/05/25 17:00 History sennosides 8.6 mg tablet (senna) 17.2 mg PO BID PRN Constipation 03/07/25 03/07/25 Unknown History Physical Exam Vital Signs: Vital Signs: Last Vital Signs Temp 96.6 F L 03/10/25 07:31 Pulse 79 03/10/25 07:31 Resp 18 03/10/25 07:31 BP 130/72 03/10/25 07:31 Pulse Ox 91 L 03/10/25 07:31 O2 Del Method Nasal Cannula 03/10/25 07:31 O2 Flow Rate 2 03/10/25 07:31 Oxygen Flow Rate 2 03/06/25 16:15 BMI result Body Mass Index 28.6 Const: General: cooperative, healthy appearing, comfortable and no acute distress Orientation/consciousness: patient oriented x3 HEENT: Face and sinus: Yes normal facial exam Mouth: moist mucous membranes Neck: Neck: Yes normal visual inspection, Yes full ROM and Yes trachea midline Chest: Chest palpation & inspection: normal inspection of the chest Resp: Effort & Inspection: normal respiratory effort, able to speak in complete sentences and no respiratory distress GI: Inspection: Yes normal to inspection Back/Spine/Pelvis: Cervical Spine: normal cervical lordosis Thoracic/Lumbar Spine: thoracic and lumbar spine normal to inspection Skin: General skin exam: no rashes or lesions noted Neuro: General: patient oriented x3, tone normal and moves all extremities Extrem: General: Yes normal to inspection and Yes capillary refill normal Results Labs 03/10/25 08:14 03/07/25 03:36 Labs: Abnormal lab results 03/09/25 03/10/25 03/10/25 Range/Units 16:18 00:45 08:14 WBC 12.8 H (4.8-10.8) X10*3/uL RBC 3.59 L (4.60-5.80) X10*6/uL Hgb 12.3 L 11.8 L (14.0-18.0) g/dl Hct 35.8 L 34.8 L (42.0-52.0) % Nasal Screen MRSA (PCR) POSITIVE A (Negative) Nasal S. aureus Screen POSITIVE A (Negative) Short CBC 03/09/25 03/10/25 Range/Units 16:18 08:14 WBC 12.8 H (4.8-10.8) X10*3/uL Hgb 12.3 L 11.8 L (14.0-18.0) g/dl Hct 35.8 L 34.8 L (42.0-52.0) % Plt Count 166 (160-400) X10*3/uL Urine 03/06/25 Range/Units 22:24 Urine Color Yellow Urine Appearance Turbid Urine pH 8.5 (5.0-9.0) Ur Specific [place] 1.025 (1.005-1.025) Urine Protein 100 (2+) H (Neg-Trace) mg/dL Urine Glucose (UA) Negative (Negative) mg/dL All other labs normal. Assessment and Plan (1) Gross hematuria: Status: Acute Plan Short course tranexamic acid to hasten hematuria resolution Procedures Date of Service Date of Service: 03/10/25
--- NOTE | 2025-03-10 12:19 | P.PNIM_ITS ---
Subjective Subjective Date of Service: 03/10/25 Interval History: pneumonia ,hypoxia hematuria Review of Systems has hypoxia ,try taper oxygen hematuria somewhat improving Review of Systems: Yes all other systems are reviewed and are negative Physical Exam 2 Exam: Exam: Appearance: Alert.? Oriented X1, similar to h&P. cvs: rrr, [id number] . res: air entry diminshed , right >left abd: no rebound or guarding ,nt, bs present. ext pulses present , no cyanosis . neuro: moving ext rest of physical exam-see h&P. Vital Signs: Vital Signs: Last Vital Signs Temp 97.9 F 03/10/25 12:00 Pulse 79 03/10/25 12:00 Resp 16 03/10/25 12:00 BP 119/58 L 03/10/25 12:00 Pulse Ox 95 03/10/25 12:00 O2 Del Method Nasal Cannula 03/10/25 12:00 O2 Flow Rate 2 03/10/25 12:00 Oxygen Flow Rate 2 03/06/25 16:15 BMI result Body Mass Index 28.6 Objective Data Active Medications Albuterol/Ipratropium (Albuterol/Iprat 2.5/0.5mg 3 Ml Ampul.Neb) 3 ml INHALE Q4H PRN PRN Reason: Shortness of Breath/Wheezing Last Admin: 03/08/25 14:18 Dose: 3 ml Documented By: DIMITRI Albuterol/Ipratropium (Albuterol/Iprat 2.5/0.5mg 3 Ml Ampul.Neb) 3 ml INHALE RQ4H WHILE AWAKE [facility] Last Admin: 03/10/25 09:31 Dose: 3 ml Documented By: MICHELLE Amlodipine Besylate (Amlodipine Besylate 10 Mg Tablet) 10 mg PO BEDTIME [facility]; Protocol Last Admin: 03/09/25 21:15 Dose: 10 mg Documented By: SUJATHA Apixaban (Apixaban 2.5 Mg Tablet) 2.5 mg PO BID [facility] On Hold: 03/09/25 10:03 Last Admin: 03/09/25 08:05 Dose: 2.5 mg Documented By: FÉLIX Artificial Tears (Artificial Tears 15 Ml Drops) 1 drop EYE-BOTH QID PRN PRN Reason: Dry Eyes Ascorbic Acid (Ascorbic Acid 500 Mg Tablet) 500 mg PO DAILY [facility] Last Admin: 03/10/25 07:53 Dose: 500 mg Documented By: ITZEL Atorvastatin Calcium (Atorvastatin Calcium 20 Mg Tablet) 20 mg PO BEDTIME [facility] Last Admin: 03/09/25 21:15 Dose: 20 mg Documented By: SUJATHA Budesonide (Budesonide 0.5 Mg/2 Ml Ampul.Neb) 0.5 mg INHALE RBID [facility] Last Admin: 03/10/25 09:31 Dose: 0.5 mg Documented By: MICHELLE Calcium Carbonate (Calcium Carbonate 750 Mg Tab.Chew) 750 mg PO Q4H PRN PRN Reason: Heartburn Cyanocobalamin (Cyanocobalamin (Vitamin B-12) 1,000 Mcg Tablet) 1,000 mcg PO DAILY [facility] Last Admin: 03/10/25 07:54 Dose: 1,000 mcg Documented By: ITZEL Docusate Sodium (Docusate Sodium 100 Mg Capsule) 100 mg PO BID [facility] Last Admin: 03/10/25 08:06 Dose: Not Given Documented By: ITZEL Non-Admin Reason: unable to crush Ezetimibe (Ezetimibe 10 Mg Tablet) 10 mg PO DAILY [facility] Last Admin: 03/10/25 07:54 Dose: 10 mg Documented By: ITZEL Escitalopram Oxalate (Escitalopram Oxalate 10 Mg Tablet) 10 mg PO DAILY [facility] Last Admin: 03/10/25 07:54 Dose: 10 mg Documented By: ITZEL Folic Acid (Folic Acid 1 Mg Tablet) 1 mg PO DAILY [facility] Last Admin: 03/10/25 07:54 Dose: 1 mg Documented By: ITZEL Acetaminophen (Ofirmev) 1,000 mg in 100 mls @ 400 mls/hr IV Q6H PRN PRN Reason: Fever Piperacillin Sod/Tazobactam (Sod 3.375 gm/ Sodium Chloride) 50 mls @ 100 mls/hr IV Q6H [facility] Last Infusion: 03/10/25 08:28 Dose: Infused Documented By: ITZEL Doxycycline Hyclate 100 mg/ (Sodium Chloride) 250 mls @ 166.67 mls/hr IV Q12H [facility] Last Admin: 03/10/25 11:18 Dose: 166.67 mls/hr Documented By: ITZEL Lactulose (Lactulose 20 Gm/30 Ml Solution) 20 gm PO DAILY PRN PRN Reason: Constipation Latanoprost (Latanoprost 0.005 % Ophth Lolita 2.5 Ml Drops) 1 drop EYE-BOTH DAILY [facility] Last Admin: 03/10/25 09:00 Dose: Not Given Documented By: ITZEL Non-Admin Reason: Med Not Available Magnesium Hydroxide (Milk Of Magnesia 30 Ml Oral.Susp) 30 ml PO DAILY PRN PRN Reason: Constipation Melatonin (Melatonin 3 Mg Tablet) 6 mg PO BEDTIME PRN PRN Reason: Insomnia Metoprolol Succinate (Metoprolol Succinate Er 50 Mg Tab.Er.24h) 50 mg PO DAILY [facility]; Protocol Last Admin: 03/10/25 07:54 Dose: 50 mg Documented By: ITZEL Mirtazapine (Mirtazapine 15 Mg Tablet) 15 mg PO BEDTIME [facility] Last Admin: 03/09/25 21:16 Dose: 15 mg Documented By: SUJATHA Ondansetron HCl (Ondansetron Hcl 4 Mg/2 Ml Vial) 4 mg IVPUSH Q8H PRN PRN Reason: Nausea and Vomiting Polyethylene Glycol (Polyethylene Glycol 3350 17 Gm Powd.Pack) 17 gm PO DAILY PRN PRN Reason: Constipation Polyethylene Glycol (Polyethylene Glycol 3350 17 Gm Powd.Pack) 17 gm PO Q48H [facility] Last Admin: 03/09/25 14:04 Dose: Not Given Documented By: FÉLIX Non-Admin Reason: Patient Asleep Potassium Chloride (Potassium Chloride Er 20 Meq Tab.Er.Prt) 20 meq PO DAILY [facility] Last Admin: 03/10/25 07:53 Dose: 20 meq Documented By: ITZEL Quetiapine Fumarate (Quetiapine Fumarate 25 Mg Tablet) 25 mg PO DAILY@1700 [facility] Last Admin: 03/09/25 17:49 Dose: 25 mg Documented By: FÉLIX Senna (Sennosides 8.6 Mg Tablet) 17.2 mg PO BEDTIME [facility] Last Admin: 03/09/25 21:15 Dose: 17.2 mg Documented By: SUJATHA Senna (Sennosides 8.6 Mg Tablet) 17.2 mg PO BID PRN PRN Reason: Constipation Sodium Chloride (0.9 % Sodium Chloride Flush 3 Ml Syringe) 3 ml IVFLUSH QSHIFT [facility] Last Admin: 03/10/25 07:51 Dose: 3 ml Documented By: ITZEL Tranexamic Acid (Tranexamic Acid 650 Mg Tablet) 650 mg PO TID [facility] Vitamin D (Cholecalciferol (Vitamin D3) 25 Mcg Tablet) 25 mcg PO DAILY [facility] Last Admin: 03/10/25 07:54 Dose: 25 mcg Documented By: ITZEL Labs 03/10/25 08:14 03/07/25 03:36 Labs: Laboratory Results - last 24 hr 03/10/25 03/10/25 00:45 08:14 MCV 96.9 MCH 32.9 MCHC 33.9 RDW 12.3 Plt Count 166 MPV 9.5 Absolute Nucleated RBC 0.000 Nucleated RBC % (auto) 0.0 Nasal Screen MRSA (PCR) POSITIVE A Nasal S. aureus Screen POSITIVE A Nasal MRSA/S.aureus Interp SEE NOTE Assessment and Plan (1) UTI (urinary tract infection): Status: Acute Assessment and Plan: 89-year-old male with history of dementia, hypertension, hyperlipidemia, chronic kidney disease stage IIIA, heart failure, CAD, AFib on Eliquis, bladder cancer with suprapubic catheter last changed 03/06/2025, UTI (klebsiella, VRE, Pseudomonas), osteoarthritis, glaucoma, mood disturbance, anemia, hyperlipidemia, COPD currently resides at the [facility] in [place] and there was a complaint of a fall that was unwitnessed. Patient noted to be on anticoagulation and patient was sent into the ED for further evaluation. Patient does not present with evidence of sepsis on admission. Patient being admitted for the following medical problems: Status post fall unwitnessed on anticoagulation CT of the head and CT of the cervical spine negative for acute findings Small superficial abrasion to the left frontal area of the skull, stable UTI with history of Klebsiella, VRE and Pseudomonas/ suprapubic catheter (secondary to Bladder CA HX) Starting patient on ceftriaxone and linezolid (reviewed with pharmacist) Patient placed on precautions noting the VRE Suprapubic catheter [facility] 03[facility] hypoxemic respiratory failure sec Pneumonia previously diagnosed with treatment initiated/ suspect aspiration Aspiration precautions in place Patient currently on ceftriaxone and linezolid (see above for UTI) Incentive spirometry as tolerated taper Oxygen via nasal cannula, patient recently started using oxygen at the [facility], wean as tolerated Speech therapy eval -diet started Hypertension Once med rec completed continue home medications to include amlodipine and HCTZ Cardiac low-salt diet Hyperlipidemia Continue statin once med rec completed LFTs are stable AFib Continue Eliquis and metoprolol . Telemetry Advanced stage dementia seems comfortable moniter closely DVT prophylaxis: Eliquis Med rec pending DNR DNI status ongoing need for stay :hypoxia /pneumonia -requiring oxygen, IV antibiotics for pneumonia and UTI with workup for possible aspiration. Quality Stroke Does the patient have a stroke diagnosis?: No Reason for No Anti-thrombotic by Day Two: N/A - Med Ordered VTE Prior VTE?: No VTE Risk Level:: Medical - moderate - high VTE Device Contraindication: N/A - Device Ordered VTE Drug Contraindication: N/A - Med Ordered
[2025-03-11] VITALS (14 sets, daily range): BP systolic 130–155; BP diastolic 61–91; PULSE 70–144; RESP 17–28; TEMP 36.2–37.4; O2SAT 8–100
--- NOTE | 2025-03-11 05:34 | PC.NURSE ---
pt calling out, upon entering room pt has increased work of breathing and O2 found to be 86 on 3L NC, O2 increased to 4L. VS obtained T: 97.9, HR 73, BP 133/61, RR 28, O2 94 on 4L NC. Provider Guicho notified and came bedside with MD Vega. Wheezes heard. Nebulizer treatment ordered.
[2025-03-11] MEDS: Albuterol/Iprat 2.5/0.5MG 3 ML AMPUL.NEB INHALE ×6 (05:49→19:11)
--- NOTE | 2025-03-11 07:16 | PC.NURSE ---
nebulizer treatment given per MAY. Respiratory Therapist to bedside, checked O2 and found it to be dipping to 88. O2 turned up to 6L NC.
[2025-03-11] MEDS: 0.9 % Sodium Chloride Flush 3 ML SYRINGE IVFLUSH ×2 (08:14→20:05)
[2025-03-11 08:31] LABS: Hematocrit 36.1 % (42.0-52.0); Hemoglobin 12.3 g/dl (14.0-18.0); Mean Corpuscular HGB Conc 34.1 g/dl (31.0-36.0); Mean Corpuscular Hemoglobin 33.3 pg (27.0-33.0); Mean Corpuscular Volume 97.8 fL (80.0-98.0); NRBC Abs Auto 0.000 X10*3/uL (0.0-0.012); NRBC Pct Auto 0.0 /100WBC (0.0-0.2); Platelet Count 195 X10*3/uL (160-400); Red Blood Count 3.69 X10*6/uL (4.60-5.80); White Blood Count 16.8 X10*3/uL (4.8-10.8)
[2025-03-11 08:43] LABS: Anion Gap 13 (12-20); Blood Urea Nitrogen 17 mg/dL (9-16); Calcium 8.7 mg/dL (8.4-10.2); Carbon Dioxide 24 mmol/L (22-29); Chloride 113 mmol/L (96-108); Creatinine Clr Calc Pharmacy 44.1; Estimated Glomerular Filt Rate 54; Potassium 3.4 mmol/L (3.3-5.1); Sodium 147 mmol/L (135-145)
[2025-03-11 08:59] LABS: ABG HCO3 23 mmol/L (22-26); ABG O2 % Saturation 94.0 %
--- NOTE | 2025-03-11 09:18 | PC.NURSE ---
M/T Charge and bed management req bed to transfer patient.
[2025-03-11 11:00] LABS: ABG Refer to POC result
[2025-03-11] MEDS: Metoprolol Succinate ER 50 MG TAB.ER.24H PO (11:22)
[2025-03-11] MEDS: Potassium Chloride ER 20 MEQ TAB.ER.PRT PO (11:25)
[2025-03-11] MEDS: Furosemide 20 MG/2 ML VIAL IVPUSH ×2 (11:30→16:58)
--- NOTE | 2025-03-11 14:07 | MHC.SLORD ---
Speech Language Pathology Order Status: Pt not seen for dysphagia tx today, pt transferred to 4th floor, see RT and RN notes. TRADE EMBALMER to follow up as indicated.
--- NOTE | 2025-03-11 14:43 | P.PNID_ITS ---
Subjective Subjective Date of Service: 03/11/25 Critical Care Time (minutes): 15 Comment: He has some increased work of breathing remains on oxygen Objective Data Labs 03/11/25 08:22 03/11/25 08:22 Labs: Laboratory Results - last 24 hr 03/11/25 03/11/25 08:22 08:55 WBC 16.8 H RBC 3.69 L Hgb 12.3 L Hct 36.1 L MCV 97.8 MCH 33.3 H MCHC 34.1 RDW 12.5 Plt Count 195 MPV 9.5 Absolute Nucleated RBC 0.000 Nucleated RBC % (auto) 0.0 O2 Saturation 94.0 ABG pH at Pt Temp 7.35 ABG pCO2 at Pt Temp 41 ABG pO2 at Pt Temp 74 L ABG HCO3 23 ABG Base Excess (Actual) -2.1 Sodium 147 H Potassium 3.4 Chloride 113 H Carbon Dioxide 24 Anion Gap 13 BUN 17 H Creatinine 1.27 Estim Creat Clear Calc 44.1 Estimated GFR 54 Random Glucose 123 H Calcium 8.7 NT-Pro-B Natriuret Pep 8510.8 H Microbiology Microbiology Results: Microbiology 03/06/25 22:33 Blood - Venous Blood Culture - Preliminary No growth after 48 hours. 03/06/25 22:33 Blood - Venous Blood Culture - Preliminary No growth after 48 hours. 03/06/25 Unknown Urine clean catch - Clean Catch Midstream Urine Culture - Final Physical Exam 2 Vital Signs: Vital Signs: Last Vital Signs Temp 97.5 F 03/11/25 11:56 Pulse 100 03/11/25 11:56 Resp 20 03/11/25 11:56 BP 155/69 H 03/11/25 11:56 Pulse Ox 95 03/11/25 11:56 O2 Del Method Oxymask 03/11/25 11:56 O2 Flow Rate 8 03/11/25 11:56 Oxygen Flow Rate 2 03/06/25 16:15 BMI result Body Mass Index 28.6 Const: General: cooperative HEENT: Head: Yes normal to inspection Face and sinus: Yes normal facial exam Mouth: Normal oral and palatal mucosa present Teeth and gingiva: d entition normal Eyes: General: appearance normal, both eyes and all related structures P upils: Equal, round and reactive pupils present Resp: Other: wheezes lung bases Cardio: Rate: regular rate Rhythm: regular rhythm GI: Palpation (GI): Soft to palpation and nontender : General: Yes no CVA tenderness Back/Spine/Pelvis: Back: no CVA tenderness Skin: General skin exam: no rashes or lesions noted Neuro: General: moves all extremities Cranial nerves: Yes Equal, round and reactive pupils present Extrem: General: Yes normal to inspection Psych: Appearance: grossly normal Assessment and Plan Assessment and plan (1) Gross hematuria: Problem details: no growth urine Some right lung improvement XRay,still wheezing Status: Acute Assessment and Plan: Continue Zosyn and Doxycycline,still wheezing possible 6 days antibiotics,await urine Legionella Time Spent With Patient Time: Total time managing care of this patient today ____ minutes.
--- NOTE | 2025-03-11 15:57 | PM.CNPUL ---
History of Present Illness History of Present Illness Consult date: 03/11/25 Chief complaint: Acute hypoxic respiratory failure Narrative: 89-year-old gentleman with underlying dementia, hypertension, CKD stage 3, congestive heart failure, CAD, AFib on anticoagulation, bladder cancer status post suprapubic catheter with recurrent UTIs, COPD admitted on 03/06/2025 with mechanical fall and treated for UTI and possible community-acquired pneumonia. Hospital course significant for progressive hypoxemia and now requiring 6 L to maintain normal oximetry and grossly positive fluid balance, now up 8.5 L since admission. Review of Systems Review of Systems: Yes Unobtainable due to mental status Neurologic: Reports confusion Psychiatric: Psychiatric: Reports confusion [facility] Past Medical History Medical History Mucus plugging of bronchi Respiratory failure with hypoxia and hypercapnia Atelectasis of left lung BPH (benign prostatic hyperplasia) Frequent falls On beta priscilla at home Overweight (BMI 25.0-29.9) Depression Urothelial carcinoma of bladder Vitamin B12 deficiency Vitamin D deficiency GERD without esophagitis Anemia Primary osteoarthritis, right shoulder Osteoarthritis of both knees Chronic kidney disease, stage III (moderate) Impaired fasting glucose Elevated liver enzymes Subdural hematoma Benign essential hypertension Pure hypercholesterolemia Coronary artery disease Family History Family History Father CVD (cardiovascular disease) Mother Hypertension Surgical History Surgical History History of tonsillectomy History of transurethral resection of bladder tumor (TURBT) History of hip surgery History of transurethral resection of prostate History of shoulder surgery Social History Social History Household Members: Caregiver Housing: Assisted Living Facility Housing Other:: [facility] Are you a primary post anesthesia care unit nurse to a significant other at home: No Do you presently have visiting nurse or other home services: Yes Alcohol intake: former Patient Tobacco Use Status: Former Tobacco user Advance Directives Date on File: 08/18/22 service: Yes Travel History Ebola Risk: Travel/Contact With Anyone From Affected Area/s: No Has Patient Experienced Ebola Symptoms: No Meds Allergies Allergy/AdvReac Type Severity Reaction Status Date / Time lisinopril Allergy Unknown Verified 03/06/25 16:17 Active Medications: Current Medications Albuterol/Ipratropium (Albuterol/Iprat 2.5/0.5mg 3 Ml Ampul.Neb) 3 ml INHALE Q4H PRN PRN Reason: Shortness of Breath/Wheezing Last Admin: 03/11/25 11:20 Dose: 3 ml Albuterol/Ipratropium (Albuterol/Iprat 2.5/0.5mg 3 Ml Ampul.Neb) 3 ml INHALE RQ4H WHILE AWAKE [facility] Last Admin: 03/11/25 15:13 Dose: 3 ml Amlodipine Besylate (Amlodipine Besylate 10 Mg Tablet) 10 mg PO BEDTIME [facility]; Protocol Last Admin: 03/10/25 20:02 Dose: 10 mg Artificial Tears (Artificial Tears 15 Ml Drops) 1 drop EYE-BOTH QID PRN PRN Reason: Dry Eyes Ascorbic Acid (Ascorbic Acid 500 Mg Tablet) 500 mg PO DAILY [facility] Last Admin: 03/11/25 11:20 Dose: 500 mg Atorvastatin Calcium (Atorvastatin Calcium 20 Mg Tablet) 20 mg PO BEDTIME [facility] Last Admin: 03/10/25 20:02 Dose: 20 mg Budesonide (Budesonide 0.5 Mg/2 Ml Ampul.Neb) 0.5 mg INHALE RBID [facility] Last Admin: 03/11/25 07:43 Dose: 0.5 mg Calcium Carbonate (Calcium Carbonate 750 Mg Tab.Chew) 750 mg PO Q4H PRN PRN Reason: Heartburn Cyanocobalamin (Cyanocobalamin (Vitamin B-12) 1,000 Mcg Tablet) 1,000 mcg PO DAILY [facility] Last Admin: 03/11/25 11:23 Dose: 1,000 mcg Docusate Sodium (Docusate Sodium 100 Mg Capsule) 100 mg PO BID [facility] Last Admin: 03/11/25 11:20 Dose: 100 mg Ezetimibe (Ezetimibe 10 Mg Tablet) 10 mg PO DAILY [facility] Last Admin: 03/11/25 11:22 Dose: 10 mg Enoxaparin Sodium (Enoxaparin Sodium 80 Mg/0.8 Ml Syringe) 80 mg SUBCUT Q12H [facility] Last Admin: 03/11/25 11:27 Dose: Not Given Escitalopram Oxalate (Escitalopram Oxalate 10 Mg Tablet) 10 mg PO DAILY [facility] Last Admin: 03/11/25 11:36 Dose: 10 mg Folic Acid (Folic Acid 1 Mg Tablet) 1 mg PO DAILY [facility] Last Admin: 03/11/25 11:20 Dose: 1 mg Furosemide (Furosemide 20 Mg/2 Ml Vial) 20 mg IVPUSH BID@0900,1800 [facility]; Protocol Piperacillin Sod/Tazobactam (Sod 3.375 gm/ Sodium Chloride) 50 mls @ 100 mls/hr IV Q6H [facility] Last Admin: 03/11/25 15:18 Dose: 100 mls/hr Doxycycline Hyclate 100 mg/ (Sodium Chloride) 250 mls @ 166.67 mls/hr IV Q12H [facility] Last Infusion: 03/11/25 14:35 Dose: Infused Lactulose (Lactulose 20 Gm/30 Ml Solution) 20 gm PO DAILY PRN PRN Reason: Constipation Latanoprost (Latanoprost 0.005 % Ophth Lolita 2.5 Ml Drops) 1 drop EYE-BOTH DAILY [facility] Last Admin: 03/11/25 15:34 Dose: Not Given Magnesium Hydroxide (Milk Of Magnesia 30 Ml Oral.Susp) 30 ml PO DAILY PRN PRN Reason: Constipation Melatonin (Melatonin 3 Mg Tablet) 6 mg PO BEDTIME PRN PRN Reason: Insomnia Metoprolol Succinate (Metoprolol Succinate Er 50 Mg Tab.Er.24h) 50 mg PO DAILY [facility]; Protocol Last Admin: 03/11/25 11:22 Dose: 50 mg Mirtazapine (Mirtazapine 15 Mg Tablet) 15 mg PO BEDTIME [facility] Last Admin: 03/10/25 20:02 Dose: 15 mg Ondansetron HCl (Ondansetron Hcl 4 Mg/2 Ml Vial) 4 mg IVPUSH Q8H PRN PRN Reason: Nausea and Vomiting Polyethylene Glycol (Polyethylene Glycol 3350 17 Gm Powd.Pack) 17 gm PO DAILY PRN PRN Reason: Constipation Polyethylene Glycol (Polyethylene Glycol 3350 17 Gm Powd.Pack) 17 gm PO Q48H [facility] Last Admin: 03/11/25 15:19 Dose: 17 gm Potassium Chloride (Potassium Chloride Er 20 Meq Tab.Er.Prt) 20 meq PO DAILY [facility] Last Admin: 03/11/25 11:25 Dose: 20 meq Quetiapine Fumarate (Quetiapine Fumarate 25 Mg Tablet) 25 mg PO DAILY@1700 [facility] Last Admin: 03/10/25 15:52 Dose: 25 mg Senna (Sennosides 8.6 Mg Tablet) 17.2 mg PO BEDTIME [facility] Last Admin: 03/10/25 20:02 Dose: 17.2 mg Senna (Sennosides 8.6 Mg Tablet) 17.2 mg PO BID PRN PRN Reason: Constipation Sodium Chloride (0.9 % Sodium Chloride Flush 3 Ml Syringe) 3 ml IVFLUSH QSHIFT [facility] Last Admin: 03/11/25 08:14 Dose: 3 ml Tranexamic Acid (Tranexamic Acid 650 Mg Tablet) 650 mg PO TID [facility] Last Admin: 03/11/25 15:19 Dose: 650 mg Vitamin D (Cholecalciferol (Vitamin D3) 25 Mcg Tablet) 25 mcg PO DAILY [facility] Last Admin: 03/11/25 11:20 Dose: 25 mcg Home Medications ?Medication ?Instructions ?Recorded ?Confirmed ?Last Taken ?Type ezetimibe 10 mg tablet 10 mg PO DAILY 03/25/20 03/07/25 03/06/25 09:00 History latanoprost 0.005 % eye drops 1 drp ophthalmic (eye) DAILY 07/03/20 03/07/25 03/06/25 09:00 History acetaminophen 325 mg tablet 650 mg PO BID pain 08/06/22 03/07/25 03/06/25 09:00 History amlodipine 10 mg tablet 10 mg PO BEDTIME 08/06/22 03/07/25 03/05/25 History cyanocobalamin (vitamin B-12) 1,000 mcg PO DAILY 08/06/22 03/07/25 03/06/25 09:00 History 1,000 mcg tablet hydrochlorothiazide 25 mg tablet 25 mg PO DAILY 08/06/22 03/07/25 03/06/25 09:00 History metoprolol succinate 50 mg 50 mg PO DAILY 08/06/22 03/07/25 03/06/25 09:00 History tablet,extended release 24 hr folic acid 1 mg tablet 1 mg PO DAILY 09/10/22 03/07/25 03/06/25 09:00 History methenamine hippurate 1 gram tablet 1 g PO BID 03/09/23 03/07/25 03/06/25 09:00 History cholecalciferol (vitamin D3) 25 25 mcg PO DAILY 12/03/23 03/07/25 03/06/25 09:00 History mcg (1,000 unit) tablet potassium chloride 20 mEq 20 meq PO DAILY 12/03/23 03/07/25 03/06/25 09:00 History tablet,extended release Lactobacillus acidoph-L.bulgaricus 1 tab PO TID 03/07/25 03/07/25 03/06/25 13:00 History 1 million cell tablet acetaminophen 325 mg tablet 650 mg PO Q6H PRN Fever Or Pain 03/07/25 03/07/25 Unknown History albuterol sulfate 2.5 mg/3 mL 2.5 mg inhalation Q4H PRN 03/07/25 03/07/25 Unknown History (0.083 %) solution for nebulization Shortness Of Breath Or Wheezing albuterol sulfate 90 mcg/actuation 2 inh inhalation Q4H PRN COPD/CHF 03/07/25 03/07/25 Unknown History breath activated powder inhaler amoxicillin 500 mg-potassium 1 tab PO BID 03/07/25 03/07/25 03/06/25 09:00 History clavulanate 125 mg tablet apixaban 2.5 mg tablet (Eliquis) 2.5 mg PO Q12H 03/07/25 03/07/25 03/06/25 09:00 History ascorbic acid (vitamin C) 500 mg 500 mg PO DAILY 03/07/25 03/07/25 03/06/25 09:00 History tablet atorvastatin 20 mg tablet 20 mg PO BEDTIME 03/07/25 03/07/25 03/05/25 History dextromethorphan-guaifenesin 10 10 ml PO Q4H PRN Cough 03/07/25 03/07/25 Unknown History mg-100 mg/5 mL oral liquid (Tusnel Diabetic) escitalopram oxalate 10 mg tablet 10 mg PO DAILY 03/07/25 03/07/25 03/06/25 09:00 History lactulose 10 gram/15 mL oral 30 ml PO DAILY PRN Constipation 03/07/25 03/07/25 03/06/25 06:32 History solution mirtazapine 15 mg tablet 15 mg PO BEDTIME 03/07/25 03/07/25 03/05/25 History polyethylene glycol 3350 17 17 g PO DAILY PRN Constipation 03/07/25 03/07/25 Unknown History gram/dose oral powder (Miralax) polyethylene glycol 3350 17 17 g PO Q OTHER DAY 03/07/25 03/07/25 03/06/25 09:00 History gram/dose oral powder (Miralax) polyvinyl alcohol 1.4 % eye drops 1 drp ophthalmic (eye) QID PRN Dry 03/07/25 03/07/25 Unknown History Eyes quetiapine 25 mg tablet 25 mg PO DAILY@1700 03/07/25 03/07/25 03/05/25 17:00 History sennosides 8.6 mg tablet (senna) 17.2 mg PO BID PRN Constipation 03/07/25 03/07/25 Unknown History Physical Exam Vital Signs: Vital Signs: Last Vital Signs Temp 99.4 F 03/11/25 15:36 Pulse 83 03/11/25 15:36 Resp 22 H 03/11/25 15:36 BP 138/64 03/11/25 15:36 Pulse Ox 95 03/11/25 15:36 O2 Del Method Oxymask 03/11/25 15:36 O2 Flow Rate 6 03/11/25 15:36 Oxygen Flow Rate 2 03/06/25 16:15 BMI result Body Mass Index 28.6 Const: General: no acute distress, alert, awake and confusion Orientation/consciousness: confusion Eyes: Sclerae: sclerae normal EOM: EOMs intact bilaterally Neck: Neck: Yes no lymphadenopathy, Yes trachea midline and Yes supple Resp: Effort & Inspection: no respiratory distress and tachypneic (Mild tachypnea) Auscultation: crackles (Diffuse bilateral) Cardio: Rate: regular rate Rhythm: regular rhythm Heart sounds: no gallops, no murmurs and no rubs GI: Palpation (GI): Soft to palpation and Other GI palpation findings present ( Nontender) Auscultation: normal bowel sounds Neuro: General: confusion Extrem: General: No clubbing, No cyanosis and Yes edema (1+ bilateral) Results Laboratory Findings 03/11/25 08:22 03/11/25 08:22 Abnormal lab findings: Abnormal Labs 03/06/25 03/06/25 03/07/25 17:05 22:24 00:15 WBC 13.1 H RBC 4.18 L Hgb 13.7 L Hct 39.7 L MCH Immature Gran % (Auto) 0.8 H Neut % (Auto) 80.6 H Lymph % (Auto) 6.3 L Osborne % (Auto) Lymph # (Auto) 0.8 L Osborne # (Auto) 1.4 H Abs Immat Gran (auto) 0.11 H Absolute Neuts (auto) 10.6 H ABG pO2 at Pt Temp VBG pH Sodium Chloride BUN 25 H Random Glucose 125 H Lactic Acid 3.7 H* Alkaline Phosphatase 32 L NT-Pro-B Natriuret Pep Total Protein Urine Protein 100 (2+) H Urine Blood Large (3+) H Ur Leukocyte Esterase Moderate (2+) H Urine RBC >20 H Urine WBC 21-50 H Nasal Screen MRSA (PCR) Nasal S. aureus Screen 03/07/25 03/07/25 03/09/25 00:21 03:36 16:18 WBC 12.4 H RBC 3.56 L Hgb 11.9 L 12.3 L Hct 34.1 L 35.8 L MCH 33.4 H Immature Gran % (Auto) 0.7 H Neut % (Auto) 77.3 H Lymph % (Auto) 7.9 L Osborne % (Auto) 12.8 H Lymph # (Auto) 1.0 L Osborne # (Auto) 1.6 H Abs Immat Gran (auto) 0.09 H Absolute Neuts (auto) 9.6 H ABG pO2 at Pt Temp VBG pH 7.24 L Sodium Chloride 109 H BUN 24 H Random Glucose 142 H Lactic Acid Alkaline Phosphatase 27 L NT-Pro-B Natriuret Pep Total Protein 6.3 L Urine Protein Urine Blood Ur Leukocyte Esterase Urine RBC Urine WBC Nasal Screen MRSA (PCR) Nasal S. aureus Screen 03/10/25 03/10/25 03/11/25 00:45 08:14 08:22 WBC 12.8 H 16.8 H RBC 3.59 L 3.69 L Hgb 11.8 L 12.3 L Hct 34.8 L 36.1 L MCH 33.3 H Immature Gran % (Auto) Neut % (Auto) Lymph % (Auto) Osborne % (Auto) Lymph # (Auto) Osborne # (Auto) Abs Immat Gran (auto) Absolute Neuts (auto) ABG pO2 at Pt Temp VBG pH Sodium 147 H Chloride 113 H BUN 17 H Random Glucose 123 H Lactic Acid Alkaline Phosphatase NT-Pro-B Natriuret Pep 8510.8 H Total Protein Urine Protein Urine Blood Ur Leukocyte Esterase Urine RBC Urine WBC Nasal Screen MRSA (PCR) POSITIVE A Nasal S. aureus Screen POSITIVE A 03/11/25 08:55 WBC RBC Hgb Hct MCH Immature Gran % (Auto) Neut % (Auto) Lymph % (Auto) Osborne % (Auto) Lymph # (Auto) Osborne # (Auto) Abs Immat Gran (auto) Absolute Neuts (auto) ABG pO2 at Pt Temp 74 L VBG pH Sodium Chloride BUN Random Glucose Lactic Acid Alkaline Phosphatase NT-Pro-B Natriuret Pep Total Protein Urine Protein Urine Blood Ur Leukocyte Esterase Urine RBC Urine WBC Nasal Screen MRSA (PCR) Nasal S. aureus Screen Microbiology: Microbiology 03/06/25 22:33 Blood - Venous Blood Culture - Preliminary No growth after 48 hours. 03/06/25 22:33 Blood - Venous Blood Culture - Preliminary No growth after 48 hours. 03/06/25 Unknown Urine clean catch - Clean Catch Midstream Urine Culture - Final Assessment and Plan (1) Acute respiratory failure with hypoxia: Status: Acute (2) Pulmonary edema: Status: Acute (3) Elevated hemidiaphragm: Status: Acute Plan Impression: 89-year-old gentleman with underlying CKD, AFib, CAD, heart failure admitted with UTI with hospital course complicated by worsening hypoxemia that appears to be secondary to developing pulmonary edema. His CT chest also demonstrates chronically significantly elevated left hemidiaphragm with resultant left-sided atelectasis and small amount of right basilar infiltrates, likely secondary to small volume recurrent aspirations. Recommendations: Agree with empiric coverage for possible aspiration component and additional diuresis. Procedures Date of Service Date of Service: 03/11/25
[2025-03-11] MEDS: Albumin Human 25 % 50 ML 100 ML IV (16:13)
--- NOTE | 2025-03-11 16:32 | P.CDIM_ITS ---
PROVIDER RESPONSE TEXT: To clarify, the appropriate diagnosis supported by the clinical indicators: Acute QUERY TEXT: PHYSICIAN'S DOCUMENTATION REQUEST Date of Query: 03/11/2025 06:52 AM EST Patient Name: Maik Lynch Admit Date: 03/07/2025 Dear Sammie Watt MD, A review of the medical record indicates additional documentation may be needed. Please review below and update the documentation accordingly. Clinical Indicators: hypoxemia documented hypoxemic respiratory failure secondary to Pneumonia previously diagnosed with treatment initiated/ suspect aspiration Aspiration precautions in place incentive spirometer, oxygen IV antibiotic Clarify which of the following accurately represents the acuity of the hypoxemic respiratory failure. Possible options might include: Acute Acute on chronic Compensated Chronic stable condition Remission Other (explain) Clinically unable to determine (explain) Thank you, Shima Dejesus RN Use of terms such as suspected, likely, concern for, or probable (associated with a specific diagnosis that is being evaluated, monitored, or treated as if it exists) are acceptable and can be coded in the inpatient setting, when documented at the time of discharge. Please use your independent medical judgment in providing your response. THIS QUERY IS PART OF THE PERMANENT MEDICAL RECORD
--- NOTE | 2025-03-11 17:14 | P.PNIM_ITS ---
Subjective Subjective Date of Service: 03/11/25 Interval History: Hypoxemic respiratory failure Review of Systems Patient has intermittent short of breath No fever or cough Review of Systems: Yes all other systems are reviewed and are negative Physical Exam 2 Exam: Exam: Appearance: Alert.? Oriented X3.? cvs: rrr, [id number] . res: air entry diminshed ,few rales at bases abd: no rebound or guarding ,nt, bs present. ext pulses present , no cyanosis . neuro: axo3 , nonfocal. Vital Signs: Vital Signs: Last Vital Signs Temp 99.4 F 03/11/25 15:36 Pulse 83 03/11/25 15:36 Resp 22 H 03/11/25 15:36 BP 138/64 03/11/25 15:36 Pulse Ox 95 03/11/25 15:36 O2 Del Method Oxymask 03/11/25 15:36 O2 Flow Rate 6 03/11/25 15:36 Oxygen Flow Rate 2 03/06/25 16:15 BMI result Body Mass Index 28.6 Objective Data Active Medications Albuterol/Ipratropium (Albuterol/Iprat 2.5/0.5mg 3 Ml Ampul.Neb) 3 ml INHALE Q4H PRN PRN Reason: Shortness of Breath/Wheezing Last Admin: 03/11/25 11:20 Dose: 3 ml Documented By: ALISIA Albuterol/Ipratropium (Albuterol/Iprat 2.5/0.5mg 3 Ml Ampul.Neb) 3 ml INHALE RQ4H WHILE AWAKE [facility] Last Admin: 03/11/25 15:13 Dose: 3 ml Documented By: ALISIA Amlodipine Besylate (Amlodipine Besylate 10 Mg Tablet) 10 mg PO BEDTIME [facility]; Protocol Last Admin: 03/10/25 20:02 Dose: 10 mg Documented By: SUJATHA Artificial Tears (Artificial Tears 15 Ml Drops) 1 drop EYE-BOTH QID PRN PRN Reason: Dry Eyes Ascorbic Acid (Ascorbic Acid 500 Mg Tablet) 500 mg PO DAILY [facility] Last Admin: 03/11/25 11:20 Dose: 500 mg Documented By: WILLIAM Atorvastatin Calcium (Atorvastatin Calcium 20 Mg Tablet) 20 mg PO BEDTIME [facility] Last Admin: 03/10/25 20:02 Dose: 20 mg Documented By: HO.MCDANID Budesonide (Budesonide 0.5 Mg/2 Ml Ampul.Neb) 0.5 mg INHALE RBID [facility] Last Admin: 03/11/25 07:43 Dose: 0.5 mg Documented By: HILARY Calcium Carbonate (Calcium Carbonate 750 Mg Tab.Chew) 750 mg PO Q4H PRN PRN Reason: Heartburn Cyanocobalamin (Cyanocobalamin (Vitamin B-12) 1,000 Mcg Tablet) 1,000 mcg PO DAILY [facility] Last Admin: 03/11/25 11:23 Dose: 1,000 mcg Documented By: WILLIAM Docusate Sodium (Docusate Sodium 100 Mg Capsule) 100 mg PO BID [facility] Last Admin: 03/11/25 11:20 Dose: 100 mg Documented By: WILLIAM Ezetimibe (Ezetimibe 10 Mg Tablet) 10 mg PO DAILY [facility] Last Admin: 03/11/25 11:22 Dose: 10 mg Documented By: WILLIAM Enoxaparin Sodium (Enoxaparin Sodium 80 Mg/0.8 Ml Syringe) 80 mg SUBCUT Q12H [facility] Last Admin: 03/11/25 11:27 Dose: Not Given Documented By: WILLIAM Non-Admin Reason: hold per Escitalopram Oxalate (Escitalopram Oxalate 10 Mg Tablet) 10 mg PO DAILY [facility] Last Admin: 03/11/25 11:20 Dose: 10 mg Documented By: WILLIAM Folic Acid (Folic Acid 1 Mg Tablet) 1 mg PO DAILY [facility] Last Admin: 03/11/25 11:20 Dose: 1 mg Documented By: WILLIAM Furosemide (Furosemide 20 Mg/2 Ml Vial) 20 mg IVPUSH BID@0900,1800 [facility]; Protocol Last Admin: 03/11/25 16:58 Dose: 20 mg Documented By: WILLIAM Piperacillin Sod/Tazobactam (Sod 3.375 gm/ Sodium Chloride) 50 mls @ 100 mls/hr IV Q6H [facility] Last Infusion: 03/11/25 16:01 Dose: Infused Documented By: WILLIAM Doxycycline Hyclate 100 mg/ (Sodium Chloride) 250 mls @ 166.67 mls/hr IV Q12H [facility] Last Infusion: 03/11/25 14:35 Dose: Infused Documented By: WILLIAM Lactulose (Lactulose 20 Gm/30 Ml Solution) 20 gm PO DAILY PRN PRN Reason: Constipation Latanoprost (Latanoprost 0.005 % Ophth Lolita 2.5 Ml Drops) 1 drop EYE-BOTH DAILY [facility] Last Admin: 03/11/25 15:34 Dose: Not Given Documented By: WILLIAM Non-Admin Reason: Med Not Available Magnesium Hydroxide (Milk Of Magnesia 30 Ml Oral.Susp) 30 ml PO DAILY PRN PRN Reason: Constipation Melatonin (Melatonin 3 Mg Tablet) 6 mg PO BEDTIME PRN PRN Reason: Insomnia Metoprolol Succinate (Metoprolol Succinate Er 50 Mg Tab.Er.24h) 50 mg PO DAILY [facility]; Protocol Last Admin: 03/11/25 11:22 Dose: 50 mg Documented By: WILLIAM Mirtazapine (Mirtazapine 15 Mg Tablet) 15 mg PO BEDTIME [facility] Last Admin: 03/10/25 20:02 Dose: 15 mg Documented By: SUJATHA Ondansetron HCl (Ondansetron Hcl 4 Mg/2 Ml Vial) 4 mg IVPUSH Q8H PRN PRN Reason: Nausea and Vomiting Polyethylene Glycol (Polyethylene Glycol 3350 17 Gm Powd.Pack) 17 gm PO DAILY PRN PRN Reason: Constipation Polyethylene Glycol (Polyethylene Glycol 3350 17 Gm Powd.Pack) 17 gm PO Q48H [facility] Last Admin: 03/11/25 15:19 Dose: 17 gm Documented By: WILLIAM Potassium Chloride (Potassium Chloride Er 20 Meq Tab.Er.Prt) 20 meq PO DAILY [facility] Last Admin: 03/11/25 11:25 Dose: 20 meq Documented By: WILLIAM Quetiapine Fumarate (Quetiapine Fumarate 25 Mg Tablet) 25 mg PO DAILY@1700 [facility] Last Admin: 03/11/25 16:58 Dose: 25 mg Documented By: WILLIAM Senna (Sennosides 8.6 Mg Tablet) 17.2 mg PO BEDTIME [facility] Last Admin: 03/10/25 20:02 Dose: 17.2 mg Documented By: SUJATHA Senna (Sennosides 8.6 Mg Tablet) 17.2 mg PO BID PRN PRN Reason: Constipation Sodium Chloride (0.9 % Sodium Chloride Flush 3 Ml Syringe) 3 ml IVFLUSH QSHIFT [facility] Last Admin: 03/11/25 16:56 Dose: Not Given Documented By: WILLIAM Non-Admin Reason: no IV Tranexamic Acid (Tranexamic Acid 650 Mg Tablet) 650 mg PO TID [facility] Last Admin: 03/11/25 15:19 Dose: 650 mg Documented By: WILLIAM Vitamin D (Cholecalciferol (Vitamin D3) 25 Mcg Tablet) 25 mcg PO DAILY [facility] Last Admin: 03/11/25 11:20 Dose: 25 mcg Documented By: WILLIAM Labs 03/11/25 08:22 03/11/25 08:22 Labs: Laboratory Results - last 24 hr 03/11/25 03/11/25 08:22 08:55 MCV 97.8 MCH 33.3 H MCHC 34.1 RDW 12.5 Plt Count 195 MPV 9.5 Absolute Nucleated RBC 0.000 Nucleated RBC % (auto) 0.0 O2 Saturation 94.0 ABG pH at Pt Temp 7.35 ABG pCO2 at Pt Temp 41 ABG pO2 at Pt Temp 74 L ABG HCO3 23 ABG Base Excess (Actual) -2.1 Anion Gap 13 Estim Creat Clear Calc 44.1 Estimated GFR 54 Random Glucose 123 H Calcium 8.7 NT-Pro-B Natriuret Pep 8510.8 H Assessment and Plan (1) UTI (urinary tract infection): Status: Acute Assessment and Plan: 89-year-old male with history of dementia, hypertension, hyperlipidemia, chronic kidney disease stage IIIA, heart failure, CAD, AFib on Eliquis, bladder cancer with suprapubic catheter last changed 03/06/2025, UTI (klebsiella, VRE, Pseudomonas), osteoarthritis, glaucoma, mood disturbance, anemia, hyperlipidemia, COPD currently resides at the [facility] in [place] and there was a complaint of a fall that was unwitnessed. Patient noted to be on anticoagulation and patient was sent into the ED for further evaluation. Patient does not present with evidence of sepsis on admission. Patient being admitted for the following medical problems: Status post fall unwitnessed on anticoagulation CT of the head and CT of the cervical spine negative for acute findings Small superficial abrasion to the left frontal area of the skull, stable UTI with history of Klebsiella, VRE and Pseudomonas/ suprapubic catheter (secondary to Bladder CA HX) Starting patient on ceftriaxone and linezolid (reviewed with pharmacist) Patient placed on precautions noting the VRE Suprapubic catheter [facility] acute hypoxemic respiratory failure sec Pneumonia previously diagnosed with treatment initiated/ suspect aspiration i/o 9 liter Aspiration precautions in place Patient currently on ceftriaxone and linezolid (see above for UTI) Chest x-ray reviewed-somewhat improving, mild leukocytosis, ABG noted pH seems fine. plan: echo strated on iv lasix moniter i/o Incentive spirometry as tolerated taper Oxygen via nasal cannula, patient recently started using oxygen [facility], wean as tolerated Pulmonary evaluation noted-recommended IV diuretics. Hypertension Once med rec completed continue home medications to include amlodipine and HCTZ Cardiac low-salt diet Hyperlipidemia Continue statin once med rec completed LFTs are stable AFib Continue Eliquis and metoprolol . Telemetry Advanced stage dementia seems comfortable moniter closely DVT prophylaxis: Eliquis Med rec pending DNR DNI status ongoing need for stay :hypoxia /pneumonia -requiring oxygen, IV antibiotics for pneumonia and UTI with workup for possible aspiration. Quality Stroke Does the patient have a stroke diagnosis?: No Reason for No Anti-thrombotic by Day Two: N/A - Med Ordered VTE Prior VTE?: No VTE Risk Level:: Medical - moderate - high VTE Device Contraindication: N/A - Device Ordered VTE Drug Contraindication: N/A - Med Ordered
--- NOTE | 2025-03-11 18:40 | PC.NURSE ---
0750- Dr. Watt notified of patient's increased respiratory effort, O2 demand, vital signs, and lung sounds assessment including fine crackles in bilateral bases and expiratory wheezing throughout. Patient received breathing treatment. Dr. Watt arrived to bedside. Imaging and labs ordered. BNP elevated. Patient remained with increased respiratory effort. O2 requirements fluctuating between 2L-6L via NC. SpO2 decreased to 60's with changing position and daily care. Patient did not tolerate ADLs well. SpO2 did not improve on NC. Oxymask placed on patient with + effect. Transfer order placed to M/T. 5291- Patient transported in bed by this RN and M/T rim fire charger operatorALEX Nick Report given to accepting RN.
[2025-03-12] VITALS (8 sets, daily range): BP systolic 129–158; BP diastolic 71–77; PULSE 77–79; RESP 17–24; TEMP 37.1; O2SAT 92–96
[2025-03-12 06:59] LABS: Hematocrit 32.6 % (42.0-52.0); Hemoglobin 10.8 g/dl (14.0-18.0); Mean Corpuscular HGB Conc 33.1 g/dl (31.0-36.0); Mean Corpuscular Hemoglobin 32.7 pg (27.0-33.0); Mean Corpuscular Volume 98.8 fL (80.0-98.0); NRBC Abs Auto 0.000 X10*3/uL (0.0-0.012); NRBC Pct Auto 0.0 /100WBC (0.0-0.2); Platelet Count 176 X10*3/uL (160-400); Red Blood Count 3.30 X10*6/uL (4.60-5.80); White Blood Count 12.6 X10*3/uL (4.8-10.8)
[2025-03-12 07:14] LABS: Anion Gap 14 (12-20); Blood Urea Nitrogen 21 mg/dL (9-16); Calcium 8.6 mg/dL (8.4-10.2); Carbon Dioxide 24 mmol/L (22-29); Chloride 113 mmol/L (96-108); Creatinine Clr Calc Pharmacy 35.0; Estimated Glomerular Filt Rate 41; Potassium 3.2 mmol/L (3.3-5.1); Sodium 148 mmol/L (135-145)
[2025-03-12] MEDS: 0.9 % Sodium Chloride Flush 3 ML SYRINGE IVFLUSH (07:54)
[2025-03-12] MEDS: Albuterol/Iprat 2.5/0.5MG 3 ML AMPUL.NEB INHALE (07:54)
[2025-03-12 07:59] LABS: Magnesium 1.6 mg/dL (1.6-2.6)
[2025-03-12] MEDS: Latanoprost 0.005 % Ophth Sol 2.5 ML DROPS 1 DROP EYE-BOTH (08:07)
[2025-03-12 08:14] LABS: Procalcitonin 0.12 ng/mL
--- NOTE | 2025-03-12 08:25 | PC.NURSE ---
Pt arousable to verbal stimuli but quickly falls back asleep unable to follow direction. made aware.
[2025-03-12 08:34] LABS: Chlamydia pneumoniae PCR Not Detected (Not Detect.); Coronavirus 229E PCR Not Detected (Not Detect.); Coronavirus HKU1 PCR Not Detected (Not Detect.); Coronavirus NL63 PCR Not Detected (Not Detect.); Coronavirus OC43 PCR Not Detected (Not Detect.); RSV PCR Not Detected (Not Detect.); Rhino/Enterovirus PCR Not Detected (Not Detect.); SARS-CoV-2 PCR Not Detected (Not Detect.)
[2025-03-12 08:52] LABS: Influenza A H1 PCR Not Detected (Not Detect.); Influenza A H1-2009 PCR Not Detected (Not Detect.); Influenza A H3 PCR Not Detected (Not Detect.)
--- NOTE | 2025-03-12 11:11 | PC.NURSE ---
Patient arrived to unit with at bedside. Bed alarm on, call dawkins within reach. Family and patient educated to utilize call button for needs.
[2025-03-12] MEDS: diazePAM 10 MG/2 ML CARTRIDGE 2.5 MG IVPUSH (12:07)
--- NOTE | 2025-03-12 12:33 | MHC.CM.PN ---
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 THIS CM MET WITH PATIENTS PRESENT AT BEDSIDE TO DISCUSS THE POSSIBILITY OF HOSPICE SERVICES, PATIENTS IS AGREEABLE. REFERR[facility] PLACED [facility], REQUESTING A GIP EVALUATION.
--- NOTE | 2025-03-12 13:10 | P.PNIM_ITS ---
Subjective Subjective Date of Service: 03/12/25 Interval History: metbolic encephalopathy,pneumonia ,chf Review of Systems sleepy Physical Exam 2 Exam: Exam: sleepy, comfortable. Vital Signs: Vital Signs: Last Vital Signs Temp 98.7 F 03/12/25 07:19 Pulse 79 03/12/25 07:54 Resp 21 H 03/12/25 12:10 BP 158/77 H 03/12/25 07:19 Pulse Ox 94 03/12/25 07:19 O2 Del Method Oxymask 03/12/25 07:19 O2 Flow Rate 6 03/12/25 07:19 Oxygen Flow Rate 2 03/06/25 16:15 BMI result Body Mass Index 28.6 Objective Data Active Medications Acetaminophen (Acetaminophen 325 Mg Tablet) 650 mg PO Q4H PRN PRN Reason: Fever >/= 100, Pain, mild 1-3 Albuterol/Ipratropium (Albuterol/Iprat 2.5/0.5mg 3 Ml Ampul.Neb) 3 ml INHALE Q4H PRN PRN Reason: Shortness of Breath/Wheezing Last Admin: 03/11/25 11:20 Dose: 3 ml Documented By: ALISIA Artificial Tears (Artificial Tears 15 Ml Drops) 1 drop EYE-BOTH QID PRN PRN Reason: Dry Eyes Budesonide (Budesonide 0.5 Mg/2 Ml Ampul.Neb) 0.5 mg INHALE RBID [facility] Last Admin: 03/12/25 07:52 Dose: 0.5 mg Documented By: MIR Diazepam (Diazepam 10 Mg/2 Ml Cartridge) 2.5 mg IVPUSH Q4H PRN PRN Reason: Anxiety Last Admin: 03/12/25 12:07 Dose: 2.5 mg Documented By: COLBUREnedelia Docusate Sodium (Docusate Sodium 100 Mg/10 Ml Liquid) 100 mg PO BEDTIME ID[facility] Lactulose (Lactulose 20 Gm/30 Ml Solution) 20 gm PO DAILY PRN PRN Reason: Constipation Latanoprost (Latanoprost 0.005 % Ophth Lolita 2.5 Ml Drops) 1 drop EYE-BOTH DAILY [facility] Last Admin: 03/12/25 08:07 Dose: 1 drop Documented By: GRACY Magnesium Hydroxide (Milk Of Magnesia 30 Ml Oral.Susp) 30 ml PO DAILY PRN PRN Reason: Constipation Melatonin (Melatonin 3 Mg Tablet) 6 mg PO BEDTIME PRN PRN Reason: Insomnia Morphine Sulfate (Morphine Sulfate 4 Mg/Ml Cartridge) 2 mg IVPUSH Q1H PRN PRN Reason: Pain, Severe (7-10)/ RR>/=24 Last Admin: 03/12/25 11:40 Dose: 2 mg Documented By: EMANUEL Ondansetron HCl (Ondansetron Odt 4 Mg Tab.Rapdis) 4 mg TRANSLINGU Q8H PRN PRN Reason: Nausea and Vomiting Polyethylene Glycol (Polyethylene Glycol 3350 17 Gm Powd.Pack) 17 gm PO DAILY PRN PRN Reason: Constipation Scopolamine (Scopolamine 1.5 Mg Patch.Td.3) 1.5 mg EAR-BEHIND Q72H [facility] Last Admin: 03/12/25 12:15 Dose: 1.5 mg Documented By: EMANUEL Senna (Sennosides 8.6 Mg Tablet) 17.2 mg PO BEDTIME [facility] Last Admin: 03/11/25 20:05 Dose: 17.2 mg Documented By: NOLAN Senna (Sennosides 8.6 Mg Tablet) 17.2 mg PO BID PRN PRN Reason: Constipation Sodium Chloride (0.9 % Sodium Chloride Flush 3 Ml Syringe) 3 ml IVFLUSH QSHIFT [facility] Last Admin: 03/12/25 07:54 Dose: 3 ml Documented By: GRACY Tranexamic Acid (Tranexamic Acid 650 Mg Tablet) 650 mg PO TID [facility] Last Admin: 03/12/25 08:24 Dose: Not Given Documented By: GRACY Non-Admin Reason: See Note Labs 03/12/25 06:46 03/12/25 06:46 Labs: Laboratory Results - last 24 hr 03/11/25 03/12/25 18:31 06:46 MCV 98.8 H MCH 32.7 MCHC 33.1 RDW 12.7 Plt Count 176 MPV 9.2 L Absolute Nucleated RBC 0.000 Nucleated RBC % (auto) 0.0 Anion Gap 14 Estim Creat Clear Calc 35.0 Estimated GFR 41 Random Glucose 126 H Calcium 8.6 Magnesium 1.6 NT-Pro-B Natriuret Pep 29246.4 H Procalcitonin 0.12 Respiratory Panel [place] See Note Adenovirus (Rapid PCR) Not Detected B.pert (TEM-PCR) Not Detected B.parapertussis DNA PCR Not Detected C. pneumoniae DNA (PCR) Not Detected Coronavirus OC43 (PCR) Not Detected Coronavirus HKU1 (PCR) Not Detected Coronavirus 229E (PCR) Not Detected Coronavirus NL63 (PCR) Not Detected Human Metapneumovir PCR Not Detected Influenza A (RT-PCR) Not Detected Influenza A (H1) PCR Not Detected Influ A (H1/09) PCR Not Detected Influenza A (H3) PCR Not Detected Influenza B (RT-PCR) Not Detected M. pneumoniae (PCR) Not Detected Parainfluenza 1 (PCR) Not Detected Parainfluenza 2 (PCR) Not Detected Parainfluenza 3 (PCR) Not Detected Parainfluenza 4 (PCR) Not Detected RSV (PCR) Not Detected Entero/Rhino (PCR) Not Detected SARS-CoV-2 RNA (RT-PCR) Not Detected Microbiology Microbiology Results: Microbiology 03/06/25 22:33 Blood Culture - Final Blood - Venous No growth after 5 days. 03/06/25 22:33 Blood Culture - Final Blood - Venous No growth after 5 days. Assessment and Plan (1) UTI (urinary tract infection): Status: Acute Assessment and Plan: 89-year-old male with history of dementia, hypertension, hyperlipidemia, chronic kidney disease stage IIIA, heart failure, CAD, AFib on Eliquis, bladder cancer with suprapubic catheter last changed 03/06/2025, UTI (klebsiella, VRE, Pseudomonas), osteoarthritis, glaucoma, mood disturbance, anemia, hyperlipidemia, COPD currently resides at the [facility] in [place] and there was a complaint of a fall that was unwitnessed. Patient noted to be on anticoagulation and patient was sent into the ED for further evaluation. Patient does not present with evidence of sepsis on admission. Patient being admitted for the following medical problems: Patient was admitted for acute hypoxemic respiratory failure for possible aspiration as well as UTI-started on IV antibiotic broad-spectrum: Status post fall unwitnessed on anticoagulation CT of the head and CT of the cervical spine negative for acute findings Small superficial abrasion to the left frontal area of the skull, stable UTI with history of Klebsiella, VRE and Pseudomonas/ suprapubic catheter (secondary to Bladder CA HX) Starting patient on ceftriaxone and linezolid (reviewed with pharmacist) Patient placed on precautions noting the VRE Suprapubic catheter [facility] on 03/06/[facility] acute hypoxemic respiratory failure sec Pneumonia previously diagnosed with treatment initiated/ suspect aspiration i/o 9 liter Aspiration precautions in place Patient currently on ceftriaxone and linezolid (see above for UTI) Chest x-ray reviewed-somewhat improving, mild leukocytosis, ABG noted pH seems fine. plan: echo strated on iv lasix moniter i/o Incentive spirometry as tolerated taper Oxygen via nasal cannula, patient recently started [facility] oxygen [facility], wean as tolerated Pulmonary evaluation noted-recommended IV diuretics. Hypertension Once med rec completed continue home medications to include amlodipine and HCTZ Cardiac low-salt diet Hyperlipidemia Continue statin once med rec completed LFTs are stable AFib Continue Eliquis and metoprolol . Telemetry Advanced stage dementia seems comfortable moniter closely DVT prophylaxis: Eliquis Med rec pending DNR DNI status ongoing need for stay :hypoxia /pneumonia -requiring oxygen, IV antibiotics for pneumonia and UTI with workup for possible aspiration. Quality Stroke Does the patient have a stroke diagnosis?: No Reason for No Anti-thrombotic by Day Two: N/A - Med Ordered VTE Prior VTE?: No VTE Risk Level:: Medical - moderate - high VTE Device Contraindication: N/A - Device Ordered VTE Drug Contraindication: N/A - Med Ordered
--- NOTE | 2025-03-12 13:47 | MHC.CM.PN ---
pt is gip
--- NOTE | 2025-03-12 13:47 | PM.DS ---
DS: Providers Provider Date of admission: 03/06/25 22:57 Date of discharge: 03/12/25 Primary care physician: Nolan Nova MD Consults: 03/08/25 15:41 Consult to Infectious Diseases Routine Consulting Provider: [facility] Reason for consultation: uti/aspirtional pneumonia Has provider been notified: No 03/09/25 10:03 Consult to Urology Routine Consulting Provider: [facility] Reason for consultation: Hematuria 03/11/25 09:07 Consult to Pulmonology Routine Consulting Provider: [facility] Reason for consultation: hypoxemic respiratory failure Has provider been notified: No 03/11/25 09:08 Consult to Cardiology Routine Consulting Provider: [facility] Reason for consultation: chf execerebation Has provider been notified: No 03/12/25 07:32 Consult to Nephrology Routine Consulting Provider: [facility] Reason for consultation: davina on ckd ,possible chf setting Attending physician on discharge: Sammie Watt Discharging clinician: Sammie Watt DS: Diagnosis Discharge Diagnosis (1) UTI (urinary tract infection): Status: Acute DS: Summary Hospital Course Hospital Course: hpi:89-year-old male with history of dementia, hypertension, hyperlipidemia, chronic kidney disease stage IIIA, heart failure, CAD, AFib on Eliquis, bladder cancer with suprapubic catheter last changed 03/06/2025, UTI (klebsiella, VRE, Pseudomonas), osteoarthritis, glaucoma, mood disturbance, anemia, hyperlipidemia, COPD currently resides at the [facility] in [place] and there was a complaint of a fall that was unwitnessed. Patient noted to be on anticoagulation and patient was sent into the ED for further evaluation. Currently patient is having trouble giving any specifics related to the fall and had no idea he was currently in the hospital. According to the ED provider's note patient initially stated he was getting out of his wheelchair, going to the bed when he tripped and fell on the right side striking his head on the ground. Patient does have a small abrasion on the left upper frontal area of the skull. At the time patient denied any LOC. Patient was endorsing discomfort to the right anterior ribs. Patient was already being treated for pneumonia at the [facility] and currently came in on Augmentin. Patient recently started using oxygen as well. Patient is not currently alert and orientated to place and time. Workup in the ED included head CT and cervical spine CT both negative for acute findings with chronic not urgent or nonacute findings. CT of the chest shows a significantly elevated left hemidiaphragm with pulmonary opacities likely secondary to compressive atelectasis. Pneumonia can not be excluded. Patient has a minimal left pleural effusion. No pneumothorax. Healed right 8th and 9th rib fractures. No acute fracture found. Patient also found to have sludge in the gallbladder. Patient denies any abdominal pain and is not having tenderness on exam. Patient does have a leukocytosis of 13.1 with stable anemia/H&H 13.7 and 39.7. Platelets 193. Electrolytes stable renal function at baseline with a creatinine clearance of 36.9 and a GFR of 49. Glucose 125. LFTs within normal limits. UA +2 protein, +3 heme, +2 leukocyte esterase, 21-50 WBCs, and +1 bacteria. Viral testing/respiratory panel pending. Noting patient has history of VRE, Klebsiella and Pseudomonas with possible underlying pneumonia with high suspicion for aspiration, starting patient on linezolid and we will continue the ceftriaxone. This was reviewed with pharmacist and was deemed appropriate treatment. Patient also on precautions. Hospital course:89-year-old male with history of dementia, hypertension, hyperlipidemia, chronic kidney disease stage IIIA, heart failure, CAD, AFib on Eliquis, bladder cancer with suprapubic catheter last changed 03/06/2025, UTI (klebsiella, VRE, Pseudomonas), osteoarthritis, glaucoma, mood disturbance, anemia, hyperlipidemia, COPD currently resides at the [facility] in [place] and there was a complaint of a fall that was unwitnessed. Patient noted to be on anticoagulation and patient was sent into the ED for further evaluation. Patient does not present with evidence of sepsis on admission. Patient being admitted for the following medical problems: Patient was initially admitted for acute hypoxemic respiratory failure secondary to possible aspiration as well as UTI, in addition patient was status post fall(CT of the head and CT of the cervical spine negative for acute findings): Patient was started on IV antibiotics, oxygen , incentive spirometry chest physiotherapy: With the above management patient did not improve much: Hypoxemia continued to worsen, subsequently also was started on IV Lasix of possible CHF, also patient has toxic metabolic encephalopathy secondary to above. Patient management discussed with the patient family spouse at bedside-decided for hospice/comfort measures, no aggressive treatments or lab draws. Patient was seen by hospice team recommended GI P hospice. Assessment and plan coordination time spent 50 minute. Time Attestation Total time managing care of this patient today: 50 mintues. Discharge Coordination Time (in mins): 50 min Quality: Safe Use of Opioids Does Pt have an Active Cancer Diagnosis on the Problem List?: No Quality: Stroke Does the patient have a stroke diagnosis?: No Physical Exam Vital Signs: Vital Signs: Last Vital Signs Temp 98.7 F 03/12/25 07:19 Pulse 79 03/12/25 07:54 Resp 22 H 03/12/25 13:13 BP 158/77 H 03/12/25 07:19 Pulse Ox 94 03/12/25 07:19 O2 Del Method Oxymask 03/12/25 07:19 O2 Flow Rate 6 03/12/25 07:19 Oxygen Flow Rate 2 03/06/25 16:15 BMI result Body Mass Index 28.6 Appearance: sleepy ,comfortable cvs: rrr, [id number] . res: air entry diminshed . abd:soft, bs present. ext pulses present , no cyanosis . DS: Data Data Completed and Pending Completed studies during hospitalization [Text1]: Procedures Assistance with Respiratory Ventilation, Less than 24 Consecutive Hours, Continuous Positive Airway Pressure (01/03/23) Reposition Right Upper Femur with Intramedullary Internal Fixation Device, Percutaneous Approach (07/03/20) Transfusion of Nonautologous Red Blood Cells into Peripheral Vein, Percutaneous Approach (07/03/20) Labs on day of discharge: Laboratory Results - last 24 hr 03/11/25 03/12/25 18:31 06:46 WBC 12.6 H RBC 3.30 L Hgb 10.8 L Hct 32.6 L MCV 98.8 H MCH 32.7 MCHC 33.1 RDW 12.7 Plt Count 176 MPV 9.2 L Absolute Nucleated RBC 0.000 Nucleated RBC % (auto) 0.0 Sodium 148 H Potassium 3.2 L Chloride 113 H Carbon Dioxide 24 Anion Gap 14 BUN 21 H Creatinine 1.60 H Estim Creat Clear Calc 35.0 Estimated GFR 41 Random Glucose 126 H Calcium 8.6 Magnesium 1.6 NT-Pro-B Natriuret Pep 72014.4 H Procalcitonin 0.12 Respiratory Panel [place] See Note Adenovirus (Rapid PCR) Not Detected B.pert (TEM-PCR) Not Detected B.parapertussis DNA PCR Not Detected C. pneumoniae DNA (PCR) Not Detected Coronavirus OC43 (PCR) Not Detected Coronavirus HKU1 (PCR) Not Detected Coronavirus 229E (PCR) Not Detected Coronavirus NL63 (PCR) Not Detected Human Metapneumovir PCR Not Detected Influenza A (RT-PCR) Not Detected Influenza A (H1) PCR Not Detected Influ A (H1/09) PCR Not Detected Influenza A (H3) PCR Not Detected Influenza B (RT-PCR) Not Detected M. pneumoniae (PCR) Not Detected Parainfluenza 1 (PCR) Not Detected Parainfluenza 2 (PCR) Not Detected Parainfluenza 3 (PCR) Not Detected Parainfluenza 4 (PCR) Not Detected RSV (PCR) Not Detected Entero/Rhino (PCR) Not Detected SARS-CoV-2 RNA (RT-PCR) Not Detected Imaging Chest x-ray: Radiologist's impression: Discharge Plan Discharge Anticipated Discharge Date/Time: 03/12/25 13:40 Patient Disposition: Hospice - Medical Facility Discharge Diagnosis: toxic metbolic encephalopathy, uti ,aspirational Referrals: Nolan Nova MD [Primary Care Provider, Internal Medicine] - 1 Week Discharge Medications: Discontinued latanoprost 0.005 % Drops 1 drp ophthalmic (eye) DAILY Rx Instructions: BOTH EYES acetaminophen 325 mg Tablet 650 mg PO BID MDD 3g from all sources metoprolol succinate 50 mg tablet extended release 24 hr 50 mg PO DAILY Protocol: Hold for SBP/HR < HOLD for SBP < : 100 HOLD for HR < : 50 hydrochlorothiazide 25 mg Tablet 25 mg PO DAILY amlodipine 10 mg Tablet 10 mg PO BEDTIME cyanocobalamin (vitamin B-12) 1,000 mcg Tablet 1,000 mcg PO DAILY docusate sodium 100 mg Capsule 100 mg PO BID Qty: 60 0RF cholecalciferol (vitamin D3) 25 mcg (1,000 unit) Tablet 25 mcg PO DAILY potassium chloride 20 mEq Tablet Extended Release 20 meq PO DAILY atorvastatin 20 mg tablet 20 mg PO BEDTIME ascorbic acid (vitamin C) 500 mg Tablet 500 mg PO DAILY amoxicillin-pot clavulanate 500-125 mg Tablet 1 tab PO BID Rx Instructions: Start Date: 03/05/2025 @1700 Stop date: 03/10/25 @0900 Indication: bacterial pneumonia escitalopram oxalate 10 mg tablet 10 mg PO DAILY Lactobacillus acidoph-L.bulgar 1 million cell Tablet 1 tab PO TID Rx Instructions: Start date: 03/05/2025 @1700 Stop date: 03/15/2025 @1300 quetiapine 25 mg tablet 25 mg PO DAILY@1700 acetaminophen 325 mg Tablet 650 mg PO Q6H MDD 3g from all sources PRN (Reason: Fever Or Pain) albuterol sulfate 2.5 mg /3 mL (0.083 %) Solution For Nebulization 2.5 mg INHALATION Q4H PRN (Reason: Shortness Of Breath Or Wheezing) mirtazapine 15 mg tablet 15 mg PO BEDTIME polyethylene glycol 3350 [Miralax] 17 gram/dose Powder 17 g PO Q OTHER DAY Rx Instructions: mix in 6-8 oz of fluid. sennosides [senna] 8.6 mg Tablet 17.2 mg PO BID PRN (Reason: Constipation) Rx Instructions: FOR NO BOWEL MOVEMENT IN 72 HOURS dextromethorphan-guaifenesin [Tusnel Diabetic] 10-100 mg/5 mL Liquid 10 ml PO Q4H PRN (Reason: Cough) polyvinyl alcohol 1.4 % Drops 1 drp OPHTHALMIC (EYE) QID PRN (Reason: Dry Eyes) Rx Instructions: BOTH EYES polyethylene glycol 3350 [Miralax] 17 gram/dose Powder 17 g PO DAILY PRN (Reason: Constipation) lactulose 10 gram/15 mL Solution 30 ml PO DAILY PRN (Reason: Constipation) Rx Instructions: If no bowel movement in 72 hours Eliquis 2.5 mg tablet 2.5 mg PO Q12H albuterol sulfate 90 mcg/actuation aerosol powdr breath activated 2 inh inhalation Q4H PRN (Reason: COPD/CHF) ezetimibe 10 mg tablet 10 mg PO DAILY methenamine hippurate 1 gram tablet 1 g PO BID folic acid 1 mg tablet 1 mg PO DAILY Discharge Orders: Discharge Order (Routine); Ordered 03/12/25 Ordered By: Sammie Watt Diet: Advance to usual diet Activity on Discharge: As tolerated Stand Alone Forms: Patient Portal Discharge page Print Language: Occitan Care Plan Goals: [employer]ENT Health Concerns: manager labor delivery Plan of Treatment: manager labor delivery Assessment: manager labor delivery
--- NOTE | 2025-03-12 14:34 | P.CONCA_ITS ---
History of Present Illness History of Present Illness Date of Service: 03/12/25 Requesting physician: Sammie Watt Chief complaint: Acute hypoxic respiratory failure Narrative: [age] year gentleman who we have been asked to see for congestive heart failure. He has multiple comorbidities including dementia, kidney disease hypotension, hyperlipidemia, heart failure, coronary disease, AFib 1 Eliquis and bladder cancer. He is currently quite delirious and agitated. No history is possible from him. He appears to be distress from his breathing. His is in the room who said that he has dementia and has been quite agitated today. [facility] Past Medical History Medical History Mucus plugging of bronchi Respiratory failure with hypoxia and hypercapnia Atelectasis of left lung BPH (benign prostatic hyperplasia) Frequent falls On beta priscilla at home Overweight (BMI 25.0-29.9) Depression Urothelial carcinoma of bladder Vitamin B12 deficiency Vitamin D deficiency GERD without esophagitis Anemia Primary osteoarthritis, right shoulder Osteoarthritis of both knees Chronic kidney disease, stage III (moderate) Impaired fasting glucose Elevated liver enzymes Subdural hematoma Benign essential hypertension Pure hypercholesterolemia Coronary artery disease Family History Family History Father CVD (cardiovascular disease) Mother Hypertension Surgical History Surgical History History of tonsillectomy History of transurethral resection of bladder tumor (TURBT) History of hip surgery History of transurethral resection of prostate History of shoulder surgery Social History Social History Household Members: Caregiver Housing: Assisted Living Facility Housing Other:: [employer] Are you a primary career portals teacher to a significant other at home: No Do you presently have visiting nurse or other home services: Yes Alcohol intake: former Comment: 1-1 sitter for safety Patient Tobacco Use Status: Former Tobacco user Advance Directives: Yes Advance Directives on File: Yes Advance Directives Date on File: 08/18/22 service: Yes Travel History Ebola Risk: Travel/Contact With Anyone From Affected Area/s: No Has Patient Experienced Ebola Symptoms: No Meds Allergies Allergy/AdvReac Type Severity Reaction Status Date / Time lisinopril Allergy Unknown Verified 03/06/25 16:17 Active Medications: Current Medications Acetaminophen (Acetaminophen 325 Mg Tablet) 650 mg PO Q4H PRN PRN Reason: Fever >/= 100, Pain, mild 1-3 Albuterol/Ipratropium (Albuterol/Iprat 2.5/0.5mg 3 Ml Ampul.Neb) 3 ml INHALE Q4H PRN PRN Reason: Shortness of Breath/Wheezing Last Admin: 03/11/25 11:20 Dose: 3 ml Artificial Tears (Artificial Tears 15 Ml Drops) 1 drop EYE-BOTH QID PRN PRN Reason: Dry Eyes Diazepam (Diazepam 10 Mg/2 Ml Cartridge) 2.5 mg IVPUSH Q4H PRN PRN Reason: Anxiety Last Admin: 03/12/25 12:07 Dose: 2.5 mg Docusate Sodium (Docusate Sodium 100 Mg/10 Ml Liquid) 100 mg PO BEDTIME IDANIA Lactulose (Lactulose 20 Gm/30 Ml Solution) 20 gm PO DAILY PRN PRN Reason: Constipation Latanoprost (Latanoprost 0.005 % Ophth Lolita 2.5 Ml Drops) 1 drop EYE-BOTH DAILY [facility] Last Admin: 03/12/25 08:07 Dose: 1 drop Magnesium Hydroxide (Milk Of Magnesia 30 Ml Oral.Susp) 30 ml PO DAILY PRN PRN Reason: Constipation Melatonin (Melatonin 3 Mg Tablet) 6 mg PO BEDTIME PRN PRN Reason: Insomnia Morphine Sulfate (Morphine Sulfate 4 Mg/Ml Cartridge) 2 mg IVPUSH Q1H PRN PRN Reason: Pain, Severe (7-10)/ RR>/=24 Last Admin: 03/12/25 13:13 Dose: 2 mg Ondansetron HCl (Ondansetron Odt 4 Mg Tab.Rapdis) 4 mg TRANSLINGU Q8H PRN PRN Reason: Nausea and Vomiting Polyethylene Glycol (Polyethylene Glycol 3350 17 Gm Powd.Pack) 17 gm PO DAILY PRN PRN Reason: Constipation Scopolamine (Scopolamine 1.5 Mg Patch.Td.3) 1.5 mg EAR-BEHIND Q72H IDANIA Last Admin: 03/12/25 12:15 Dose: 1.5 mg Senna (Sennosides 8.6 Mg Tablet) 17.2 mg PO BEDTIME IDANIA Last Admin: 03/11/25 20:05 Dose: 17.2 mg Senna (Sennosides 8.6 Mg Tablet) 17.2 mg PO BID PRN PRN Reason: Constipation Sodium Chloride (0.9 % Sodium Chloride Flush 3 Ml Syringe) 3 ml IVFLUSH QSHIFT [facility] Last Admin: 03/12/25 07:54 Dose: 3 ml Tranexamic Acid (Tranexamic Acid 650 Mg Tablet) 650 mg PO TID [facility] Last Admin: 03/12/25 08:24 Dose: Not Given Physical Exam 2 Vital Signs: Vital Signs: Last Vital Signs Temp 98.7 F 03/12/25 07:19 Pulse 79 03/12/25 07:54 Resp 22 H 03/12/25 13:43 BP 158/77 H 03/12/25 07:19 Pulse Ox 94 03/12/25 07:19 O2 Del Method Oxymask 03/12/25 07:19 O2 Flow Rate 6 03/12/25 07:19 Oxygen Flow Rate 2 03/06/25 16:15 BMI result Body Mass Index 28.6 GENERAL APPEARANCE: Agitated. NECK: no carotid bruit, + jugular venous distention. SKIN: no suspicious lesions, warm and dry. HEART: Systolic murmur aortic area with preserved 2nd heart sound, regular rate and rhythm. LUNGS: clear to auscultation bilaterally. ABDOMEN: soft, nontender. EXTREMITIES: no edema. PERIPHERAL PULSES: equal. Objective Labs and Meds 03/12/25 06:46 03/12/25 06:46 Lab results: Laboratory Results - last 24 hr 03/11/25 03/12/25 18:31 06:46 WBC 12.6 H RBC 3.30 L Hgb 10.8 L Hct 32.6 L MCV 98.8 H MCH 32.7 MCHC 33.1 RDW 12.7 Plt Count 176 MPV 9.2 L Absolute Nucleated RBC 0.000 Nucleated RBC % (auto) 0.0 Sodium 148 H Potassium 3.2 L Chloride 113 H Carbon Dioxide 24 Anion Gap 14 BUN 21 H Creatinine 1.60 H Estim Creat Clear Calc 35.0 Estimated GFR 41 Random Glucose 126 H Calcium 8.6 Magnesium 1.6 NT-Pro-B Natriuret Pep 58549.4 H Procalcitonin 0.12 Respiratory Panel [place] See Note Adenovirus (Rapid PCR) Not Detected B.pert (TEM-PCR) Not Detected B.parapertussis DNA PCR Not Detected C. pneumoniae DNA (PCR) Not Detected Coronavirus OC43 (PCR) Not Detected Coronavirus HKU1 (PCR) Not Detected Coronavirus 229E (PCR) Not Detected Coronavirus NL63 (PCR) Not Detected Human Metapneumovir PCR Not Detected Influenza A (RT-PCR) Not Detected Influenza A (H1) PCR Not Detected Influ A (H1/09) PCR Not Detected Influenza A (H3) PCR Not Detected Influenza B (RT-PCR) Not Detected M. pneumoniae (PCR) Not Detected Parainfluenza 1 (PCR) Not Detected Parainfluenza 2 (PCR) Not Detected Parainfluenza 3 (PCR) Not Detected Parainfluenza 4 (PCR) Not Detected RSV (PCR) Not Detected Entero/Rhino (PCR) Not Detected SARS-CoV-2 RNA (RT-PCR) Not Detected Assessment and Plan (1) Acute respiratory failure with hypoxia: Status: Acute Plan [age] gentleman with multiple comorbidities as mentioned above who has dementia and currently delirium with agitation. We have been asked to assess him for congestive heart failure. History is not possible for him due to his mental status. Clinically he is agitated and appears to be tachypneic which could be behavioral versus a true pathology. He has mild JVD on examination. Difficult to say whether he is in heart failure or not. His creatinine is already worsening and he has hypernatremia which means he has not been drinking fluids due to his dementia. If hypoxic then small dose of diuretics can be tried. Overall he appears to be quite agitated and confused. Prognosis guarded. We will discuss with Medicine team. Procedures Date of Service Date of Service: 03/12/25
== END 2025-03-12 15:01 | disposition hospice, inpatient (51) | DRG 698 ==
LOC: HO.ED 23:10 → HO.EDOVER 23:40 → HO.IMC 03-08 00:32 → HO.S3 03-09 16:52 → HO.IMC 03-11 09:44 → HO.S3 03-12 09:28
PROVIDERS: Internal Medicine; Admitting Provider Nurse Practitioner Family; Emergency Provider Emergency Medicine; PCP Internal Medicine; Visit Provider Internal Medicine
DX: T83.518A Infection and inflammatory reaction due to other urinary catheter, initial encounter (principal); G92.8 Other toxic encephalopathy; J69.0 Pneumonitis due to inhalation of food and vomit; J96.01 Acute respiratory failure with hypoxia; N39.0 Urinary tract infection, site not specified; F03.911 Unspecified dementia, unspecified severity, with agitation; J98.11 Atelectasis; I13.0 Hypertensive heart and chronic kidney disease with heart failure and stage 1 through stage 4 chronic kidney disease, or unspecified chronic kidney disease; J91.8 Pleural effusion in other conditions classified elsewhere; Z66 Do not resuscitate; W19.XXXA Unspecified fall, initial encounter; E78.5 Hyperlipidemia, unspecified; I50.9 Heart failure, unspecified; D63.1 Anemia in chronic kidney disease; R31.0 Gross hematuria; R33.9 Retention of urine, unspecified; I48.91 Unspecified atrial fibrillation; I25.10 Atherosclerotic heart disease of native coronary artery without angina pectoris; N18.31 Chronic kidney disease, stage 3a; Z20.822 Contact with and (suspected) exposure to COVID-19; Z87.891 Personal history of nicotine dependence; Z87.440 Personal history of urinary (tract) infections; Z85.51 Personal history of malignant neoplasm of bladder
CPT/HCPCS: 36415; 36600; 70450; 71045; 71260; 72125; 74177; 80048; 80053; 81001; 82803; 83605; 83735; 83880; 84145; 85014; 85018; 85025; 85027; 87040; 87086; 87449; 87633; 87637; 87640; 87641; 92526; 92610; 93005; 94640; 99285; J0696; J1271; J1938; J2020; J2270; J2359; J2543; J3360; P9047; Q9957

== ENCOUNTER → 2025-03-06 16:31 | Outpatient (BNV) | payer MEDICARE, SELFPAY | PROVIDERS: Admitting Provider Nurse Practitioner Family; Emergency Provider Emergency Medicine; Visit Provider Internal Medicine Cardiovascular Disease | DX: I49.1 Atrial premature depolarization (principal); I21.19 ST elevation (STEMI) myocardial infarction involving other coronary artery of inferior wall | CPT/HCPCS: 93010 ==

== ENCOUNTER → 2025-03-06 16:48 | Outpatient (BNV) | payer MEDICARE, SELFPAY | PROVIDERS: Visit Provider Specialist | DX: K80.20 Calculus of gallbladder without cholecystitis without obstruction (principal); J98.6 Disorders of diaphragm; R91.8 Other nonspecific abnormal finding of lung field; M50.30 Other cervical disc degeneration, unspecified cervical region; Z04.3 Encounter for examination and observation following other accident | CPT/HCPCS: 70450; 71260; 72125; 74177 ==

== ENCOUNTER 2025-03-06 22:57 | Outpatient (BNV) | payer MEDICARE, SELFPAY | END 2025-03-11 08:40 | PROVIDERS: Admitting Provider Nurse Practitioner Family; Emergency Provider Emergency Medicine; Visit Provider Radiology Diagnostic Radiology | DX: R06.02 Shortness of breath (principal) | CPT/HCPCS: 71045 ==

== ENCOUNTER → 2025-03-06 22:57 | Outpatient (BNV) | payer MEDICARE, SELFPAY | PROVIDERS: Admitting Provider Nurse Practitioner Family; Emergency Provider Emergency Medicine; PCP Internal Medicine; Visit Provider Internal Medicine | DX: N18.31 Chronic kidney disease, stage 3a (principal); J18.9 Pneumonia, unspecified organism; R31.0 Gross hematuria | CPT/HCPCS: 99222; 99232 ==

== ENCOUNTER → 2025-03-06 22:57 | Outpatient (BNV) | payer MEDICARE, SELFPAY | PROVIDERS: Admitting Provider Nurse Practitioner Family; Emergency Provider Emergency Medicine; Visit Provider Urology | DX: R31.0 Gross hematuria (principal) | CPT/HCPCS: 99223 ==

== ENCOUNTER → 2025-03-06 22:57 | Outpatient (BNV) | payer MEDICARE, SELFPAY | PROVIDERS: Admitting Provider Nurse Practitioner Family; Emergency Provider Emergency Medicine; Visit Provider Nurse Practitioner Family | DX: N30.01 Acute cystitis with hematuria (principal) | CPT/HCPCS: 99223; 99232 ==

== ENCOUNTER → 2025-03-06 22:57 | Outpatient (BNV) | payer MEDICARE, SELFPAY | PROVIDERS: Admitting Provider Nurse Practitioner Family; Emergency Provider Emergency Medicine; PCP Internal Medicine; Visit Provider Internal Medicine Pulmonary Disease | DX: J96.01 Acute respiratory failure with hypoxia (principal); J81.1 Chronic pulmonary edema; J98.6 Disorders of diaphragm | CPT/HCPCS: 99223 ==

== ENCOUNTER → 2025-03-06 22:57 | Outpatient (BNV) | payer MEDICARE, SELFPAY | PROVIDERS: Admitting Provider Nurse Practitioner Family; Emergency Provider Emergency Medicine; PCP Internal Medicine; Visit Provider Internal Medicine Cardiovascular Disease | DX: J96.01 Acute respiratory failure with hypoxia (principal) | CPT/HCPCS: 99222 ==

== ENCOUNTER 2025-03-12 15:03 | Inpatient (IN) | payer OTHER, SELFPAY ==
--- NOTE | 2025-03-12 14:39 | P.EN_ITS ---
Event Note Date of Service: 03/12/25 Event Note: h&P: hpi:89-year-old male with history of dementia, hypertension, hyperlipidemia, chronic kidney disease stage IIIA, heart failure, CAD, AFib on Eliquis, bladder cancer with suprapubic catheter last changed 03/06/2025, UTI (klebsiella, VRE, Pseudomonas), osteoarthritis, glaucoma, mood disturbance, anemia, hyperlipidemia, COPD currently resides at the [facility] in [place] and there was a complaint of a fall that was unwitnessed. Patient noted to be on anticoagulation and patient was sent into the ED for further evaluation. Currently patient is having trouble giving any specifics related to the fall and had no idea he was currently in the hospital. According to the ED provider's note patient initially stated he was getting out of his wheelchair, going to the bed when he tripped and fell on the right side striking his head on the ground. Patient does have a small abrasion on the left upper frontal area of the skull. At the time patient denied any LOC. Patient was endorsing discomfort to the right anterior ribs. Patient was already being treated for pneumonia at the [facility] and currently came in on Augmentin. Patient recently started using oxygen as well. Patient is not currently alert and orientated to place and time. Workup in the ED included head CT and cervical spine CT both negative for acute findings with chronic not urgent or nonacute findings. CT of the chest shows a significantly elevated left hemidiaphragm with pulmonary opacities likely secondary to compressive atelectasis. Pneumonia can not be excluded. Patient has a minimal left pleural effusion. No pneumothorax. Healed right 8th and 9th rib fractures. No acute fracture found. Patient also found to have sludge in the gallbladder. Patient denies any abdominal pain and is not having tenderness on exam. Patient does have a leukocytosis of 13.1 with stable anemia/H&H 13.7 and 39.7. Platelets 193. Electrolytes stable renal function at baseline with a creatinine clearance of 36.9 and a GFR of 49. Glucose 125. LFTs within normal limits. UA +2 protein, +3 heme, +2 leukocyte esterase, 21-50 WBCs, and +1 bacteria. Viral testing/respiratory panel pending. Noting patient has history of VRE, Klebsiella and Pseudomonas with possible underlying pneumonia with high suspicion for aspiration, starting patient on linezolid and we will continue the ceftriaxone. This was reviewed with pharmacist and was deemed appropriate treatment. Patient also on precautions. Physical exam please see below. Assessment and plan: Hospital course:89-year-old male with history of dementia, hypertension, hyperlipidemia, chronic kidney disease stage IIIA, heart failure, CAD, AFib on Eliquis, bladder cancer with suprapubic catheter last changed 03/06/2025, UTI (klebsiella, VRE, Pseudomonas), osteoarthritis, glaucoma, mood disturbance, anemia, hyperlipidemia, COPD currently resides at [facility] in [place] and there was a complaint of a fall that was unwitnessed. Patient noted to be on anticoagulation and patient was sent into the ED for further evaluation. Patient does not present with evidence of sepsis on admission. Patient being admitted for the following medical problems: Patient was initially admitted for acute hypoxemic respiratory failure secondary to possible aspiration as well as UTI, in addition patient was status post fall(CT of the head and CT of the cervical spine negative for acute findings): Patient was started on IV antibiotics, oxygen , incentive spirometry chest physiotherapy: With the above management patient did not improve much: Hypoxemia continued to worsen, subsequently also was started on IV Lasix of possible CHF, also patient has toxic metabolic encephalopathy secondary to above. Patient management discussed with the patient family spouse at bedside-decided for hospice/comfort measures, no aggressive treatments or lab draws. Patient was seen by hospice team recommended GI P hospice. Physical Exam Vital Signs: Vital Signs: Last Vital Signs Temp 98.7 F 03/12/25 07:19 Pulse 79 03/12/25 07:54 Resp 22 H 03/12/25 13:13 BP 158/77 H 03/12/25 07:19 Pulse Ox 94 03/12/25 07:19 O2 Del Method Oxymask 03/12/25 07:19 O2 Flow Rate 6 03/12/25 07:19 Oxygen Flow Rate 2 03/06/25 16:15 BMI result Body Mass Index 28.6 Appearance: sleepy ,comfortable cvs: rrr, [id number] . res: air entry diminshed . abd:soft, bs present. ext pulses present , no cyanosis . Time Spent With Patient Time: Total time managing care of this patient today ____ minutes.
--- NOTE | 2025-03-12 16:30 | PC.NURSE ---
Family at bedside, patient having irregular, deep breathing. Patient is rigid, holding hand of daughter. Family concerned he is in respiratory distress due to deep, irregular breaths. TRUCK MANAGER education provided to family, including changes in breathing patterns. PRN medications administered, reached out to provider Shukri via [employer] to switch anxiety medication to IV as patient can not take PO medication at this time due to mental status.
--- NOTE | 2025-03-12 18:01 | PC.NURSE ---
Family remains at bedside. Suctioning provided and moderate amount of secretions removed. Patient has deep irregular breathing pattern. Provide Watt came to bedside and talked to family. Top dentures removed from mouth and placed in container by sink, aware. Family reported no needs at this time and report patient appears comfortable at this time. Family educated to utilize call dawkins for assistance or if they feel patient is uncomfortable, family verbalized understanding.
--- NOTE | 2025-03-12 18:51 | PC.NURSE ---
Family came out to nurses station with concern of patient having respiratory distress. Upon assessment patient having periods of apnea followed by deep, rapid breaths. Secretions heard orally, as if sitting in the back of throat, suctioning provided with small amount of secretions suctioned. Position changed. Breathing pattern and secretions are of concern and distress to family. Reached out to night provider Guicho, to inquire about atropine drops(per family request) to help with secretions, awaiting response.
[2025-03-12 19:15] VITALS: RESP 18
--- OUTSIDE RECORDS SUMMARY | 2025-03-12 19:24 | XMS_ITS | Clinical Summary ---
Author Organization [employer] Address [address] [place] [address] Care Team Providers Care Care Transitions Manager Name Role Phone Unavailable Primary Care Provider [...] Noted Date Diagnosed Date Carcinoma of bladder ([facility]) 08/22/2024 Overview (08/22/2024): July 30, 2021 Entered By: NATASHA HINKLE Comment: hx of bladder cancer/ obstructive uropathy- permanent mcpherson Malignant neoplasm of bladder, unspecified 08/22 Unspecified dementia, unspec ified severity, without behavioral disturbance, psychotic disturbance, mood disturbance, and anxiety ([facility]) 08/22/2024 Encounter for fitting and adjustment of [...] folate deficient Stage 3 chronic kidney disease ([facility]) 023 Overview (08/22/2024): Baseline creatinine 1.1. Mandible [...] need f/u with urology as outpatient Dementia ([facility]) 09/06/2020 Overview (08/22/2024): July 30, 2021 Entered By: NATASHA HINKLE Comment: nsg home resident at [facility] in [place]- is very supportive and prefers he have audiology and ear lavage at OR Hyperkalemia 09/06/2020 Overview (08/22/2024): Last Assessment & Plan: Due to OLEG. On lisinopril at home. Hyperkalemia on outpatient lab, 6. Currently 5.3 -cont to monitor -hold lisinopril Depressive disorder 03/28/2020 Overview (08/22/2024): Last Assessment & Plan: Continue Lexapro and Remeron. 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 Encounters Date Type Department Care Team Description 02/06/2025 11:00 AM EST Office Visit [facility] [address] [place] [address] Darian Lu DMD 12/26/2024 11:30 AM EDT Office Visit [facility] [address] [place] [address] Darian Lu DMD from Last 3 Months [...]
--- OUTSIDE RECORDS SUMMARY | 2025-03-12 19:24 | XMS_ITS | Data Portability ---
Author Organization [facility], Main Office Address [address] [place] [address] Care Team Providers Care Insurance Healthcare Consultant Name Role Phone FORMERLY NAMED [facility] OTHER FRANCIS LUNA Primary Care Provider [phone] Assessment No assessment recorded. 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 Active 2020 JESS Burden [address], [address], [place], [address], [facility] 12:48:15 Hearing loss 05039622 Active 2020 JESS Burden [address], [address], [place], [address], [facility] 12:48:38 Acute posthemo rrhagic anemia 467450574 Active 2020 JESS Burden [address], [address], [place], [address], [place] [employer] 1 12:55:55 Fracture of neck of femur 5475964 Active 2020 JESS Burden [address], [address], [place], [address], [facility] 1 12:56:10 Chronic kidney disease stage 2 916002934 Completed 202012/01/2020 Removal Reason: diagosis revised CHUY ZIMMERMAN PA-C [address], [address], [place], [address], [employer] 1 14:47:13 Hyperten sive disorder 41244388 Active 2020 JESS Burden [address], [address], [place], [address], [facility] [employer] 1 12:56:54 Recurren t falls 797584874 Active 2020 JESS Burden [address], [address], [place], [address], [facility] 1 13:15:10 Mixed hyperlip idemia 913769791 Active 2020 JESS Burden [address], [place], [address], [facility] 1 13:23:50 Hypoalbu minemia 658187286 Active 2020 Esvin Curriein null, [facility] 1 11:02:32 Atherosc lerosis of coronary artery without angina pectoris 90076163586 4103 Active 2020 Esvin Curriein null, [facility] [employer] [facility] 1 11:02:35 Impaired cognitio n 029264730 Active 2020 Esvin Curriein null, [facility] [employer] 1 11:02:37 Edema 540530949 Active 2020 Esvin Curriein null, [facility] [employer] 1 11:02:56 Glaucoma 95331256 Active 2020 Esvin Curriein null, [facility] 1 11:04:42 Mild major depressi on 30653987 Active 2020 Esvin Slater null, [facility] 1 11:05:39 Cobalami n deficien cy 579626340 Active 2020 Esvin Slater null, [facility] 1 11:06:28 Vitamin D deficien cy 19472287 Active 2020 Esvin Curriein null, [facility] 1 11:06:40 Dementia 42326890 Active 2020 Esvin Curriein null, [facility] 1 10:38:31 Age related macular degenera tion 210052743 Active 2020 Esvin Curriein null, [facility] 1 10:39:14 Retentio n of urine 492679025 Active 2020 sEvin Slater null, [facility] 1 09:14:20 Coronary atherosc lerosis 537143326 Active 2020 Esvin Slater null, [facility] 1 19:52:59 SARS-CoV -2 Active 2021 Beatriz Cleaning NP [address], [address], [place], [address], [facility] 2 15:12:59 Impacted cerumen in left ear 74771449409 26346 Active 2021 Beatriz Cleaning NP [address], [address], [place], [address], [facility] 2 15:30:09 Problem Notes None recorded. Medical Equipment None Reported. Allergies Allergen ID Allergen Name Allergen Category Reaction Reaction Severity Criticality Documentation Date Start Date Code Code System Note Provider Name and Address Organization Details Recorded Time 86949 lisinopri l medicatio n other severe Not available 09/23/2020 86189 RxNorm OLEG and hyper kalem ia CHUY ZIMMERMAN PA-C [address], [address], [place], [address], [facility] 1 13:15:06 Medications Not known to be on any medication Vitals Date Recorded Body height Oxygen saturation Heart rate Respiratory rate Body temperature Systolic And Diastolic Provider Name and Address Organization Details Last Updated DateTime 2 170.18 cm 97 % 55 /min 18 /min 97.6 [degF] 112/58 mm[Hg] JESS Burden [address] [facility] [address], [place], [address], [facility] 2 15:21:10 Date Recorded Body height Body mass index (BMI) Body weight Heart rate Respiratory rate Body temperature Oxygen saturation Systolic And Diastolic Provider Name and Address Organization Details Last Updated DateTime 2 170.18 cm 31.3 kg/m2 01387.4 7 g 60 /min 18 /min 97.4 [degF] 97 % 106/52 mm[Hg] Beatriz Cleaning NP [address], [facility] [address], [place], [address], [facility] 2 12:01:42 Date Recorded Body height Body mass index (BMI) Body weight Heart rate Respiratory rate Body temperature Oxygen saturation Systolic And Diastolic Provider Name and Address Organization Details Last Updated DateTime 2 170.18 cm 31.3 kg/m2 24917.4 7 g 48 /min 18 /min 97.2 [degF] 96 % 129/59 mm[Hg] Beatriz Cleaning NP [address], [facility] [address], [place], [address], [facility] 2 14:29:20 Date Recorded Body height Body temperature Oxygen saturation Heart rate Systolic And Diastolic Provider Name and Address Organization Details Last Updated DateTime 2 170.18 cm 97.8 [degF] 96 % 64 /min 106/63 mm[Hg] Deya Krishnan MD [address], [address], [place], [address], [facility] 2 06:29:20 Date Recorded Body height Body mass index (BMI) Body weight Heart rate Respiratory rate Body temperature Oxygen saturation Systolic And Diastolic Provider Name and Address Organization Details Last Updated DateTime 2 170.18 cm 31.2 kg/m2 41821.8 8 g 67 /min 18 /min 97.2 [degF] 96 % 142/72 mm[Hg] Beatriz Cleaning, [employer] [address], [place], [address], [facility] 2 12:24:01 Social History Question Answer Notes LastModified by Organizat ion Details LastModified Time Tobacco Smoking Status Former Smoker Nettie Richie, [employer] [address] , [address], [place], [address], [facility] 07/10/2020 12:45:29 Do You Have An Advance Directive? Yes DNR, DNI, Transfer To Hospital, No Dialysis, No Artificial Nutrition [email or web address] Information not available 07/10/2020 What Is Your Code Status? DNR/DNI [email or web address] Information not available 12/01/2020 Legal Guardian? No [email or web address] Information not available 12/01/2020 Do You Have A Medical Power Of Applications Tester? Yes HCP Invoked [email or web address] Information not available 07/10/2020 What Was The Date Of Your Most Recent Tobacco Screening? 11/28/2020 Information not available 12/01/2020 How Much Tobacco Do You Smoke? 1 PPD [email or web address] Information not available 07/10/2020 Has Tobacco Cessation Counseling Been Provided? No N/A [email or web address] Information not available 12/01/2020 How Many Years Have You Smoked Tobacco? 20 [email or web address] Information not available 07/10/2020 Sex: Unknown Functional Status Question Answer Note LastModified by Organizat ion Details LastModified Time Do you or have you ever used any other forms of tobacco or nicotine? No Information not available 12/01/2020 What is your level of alcohol consumption? None Hx heavy: 1 bottle of wine per day; not drinking since [email or web address] Information not available 12/01/2020 Do you or have you ever used smokeless tobacco? Never used smokeless tobacco [email or web address] Information not available 07/10/2020 Do you or have you ever used e-cigarettes or vape? Never used electronic cigarettes [email or web address] Information not available 07/10/2020 Mental Status None recorded. Family History Nothing Reported. Medical History No medical history recorded. Immunizations Vaccine Type Date Status Note Provider Nam e and Address Organization Details Recorded Time COVID-19, mRNA, LNP-S, PF, 30 mcg/0.3 mL dose 05/08/2020 completed CHUY ZIMMERMAN PA-C [address], [address], [place], [address], [facility] 12/01/2020 14:48:34 COVID-19, mRNA, LNP-S, PF, 30 mcg/0.3 mL dose 06/05/2020 completed CHUY ZIMMERMAN PA-C [address], [address], [place], [address], [facility] 12/01/2020 14:48:40 Past Encounters Encounter ID Performer Location Encounter Start Date Encounter Closed Date Diagnosis/Indication Diagnosis SNOMED-CT Code Diagnosis ICD10 Code Diagnosis IMO Codes Diagnosis Note [id number] JESS Burden AT [address] [address] 07/10/2020 12:35:42 07/16/2020 09:44:34 Fracture of neck of femur 9243059 S72.001D see hpi mechanical fall at home, ORIF at [facility] lovenox 40 mg sq qd till 08/20 oxycodone 5 mg q 6 hrs prn monitor right hip incisions f/u with ortho Acute post hemorrhagic anemia 235365432 D62 no labs in chart or dc summary available monitor cbc weekly - pending today Chronic ki dney disease stage 2 494074778 N18.2 limited paperwork from [facility] states OLEG on CKD - appears that pt's lisinopril was held at hospital avoid nephrotoxi c meds as able monitor cmp this week then bmp weekly - pending today Hypertensive disorder 38 764528 I10 bp mildly elevated lisinopril 20 mg qd - on hold til 07/12 metoprolol 25 mg bid asa 81 mg qd monitor bp and adjust meds prn 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 F51.4 known hx of per lexapro 20 mg qd remeron 7.5 mg qhs gabapentin 300 mg bid per pt will wake up at night screaming psych to follow Vascular d ementia with behavioral disturbance 9243967020 82083 F01.51 per pt is forgetful will wait till pt is settled into unit to do [facility] supportive care expect decline Hearing loss 46727718 H9 1.93 known hx of supportive care Mixed hyperlipidemia 267 915914 E78.2 zetia 10 mg qd lipitor 80 mg qhs check lipid panel once pt is LTC Recurrent falls 62111181 2 R29.6 PT OT for conditioni ng and mobility monitor for fall risk didn't think that his drinking had much to do with his falls, says they usually happened in the morning and he did not start drinking till 11 am [id number] ESVIN SLATER MD [place] AT [address] [address] 07/11/2020 10:34:37 07/16/2020 10:27:03 Fracture of neck of femur 0427033 S72.001D continue with therapy, pain rx, DVT prophyllax is Recurrent falls 40642810 2 R29.6 will taper off gabapentin as this may predispose to falls, also reduce lexapro to 10 for same reason Macrocytic anemia 082134 05 D53.9 unclear if due to blood loss from recent surgery or other. Will give iron for a month, check B12, folate and MMA Hypertensive disorder 38 943143 I10 controlled with current rx. Will consolidat e metoprolol into a single daily dose Mixed hyperlipidemia 267 074974 E78.2 continue current rx Impaired cognition 09528 6002 R41.89 has mild to moderate impairment of cognition which is chronic. Accompanyi ng visual hallucinat ions suggestive of Lewy body dementia. can no longer care for him at home. 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 Last drink a week ago so no risk of withdrawal at this time. Continue abstinence . Has mild liver enzyme abnormalit ies which should be rechecked in a month or so Edema 025332404 R60.9 due to hypoalbumi nemia and recent surgery. No new rx needed at this time Glaucoma 84052894 H40.9 continue current rx Age relate d macular degeneration 346152510 H35.30 continue current supplement s Mild major depression 87 906115 F32.0 continue remeron, continue lexapro after dose reduction as above Cobalamin deficiency 190 275364 E53.8 continue rx Vitamin D deficiency 347 98246 E55.9 continue rx [id number] JESS Burden AT [address] [address] 07/15/2020 13:48:11 07/17/2020 12:55:19 Fracture of neck of femur 4674056 S72.001D mechanical fall at home, ORIF at [facility] lovenox 40 mg sq qd till 08/20 oxycodone 5 mg q 6 hrs prn monitor right hip incisions f/u with ortho Acute post hemorrhagic anemia 151514453 D62 now on iron check cbc weekly Chronic ki dney disease stage 2 777840579 N18.2 pt's lisinopril was held at hospital - resumed on 07/12 avoid nephrotoxi c meds as able monitor cmp this week then bmp weekly - pending today Hypertensive disorder 38 488352 I10 bp mildly elevated lisinopril 20 mg qd - on hold til 07/12 metoprolol 25 mg bid asa 81 mg qd monitor bp and adjust meds prn 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 809078 F51.4 known hx of per lexapro 10 mg qd remeron 7.5 mg qhs gabapentin taper to discontinu e per pt will wake up at night screaming psych to follow Vascular d ementia with behavioral disturbance 0334388311 29436 F01.51 per pt is forgetful will wait till pt is settled into unit to do SLU[facility] supportive care expect decline Hearing loss 22452799 H9 1.93 known hx of supportive care Mixed hyperlipidemia 267 468983 E78.2 zetia 10 mg qd lipitor 80 mg qhs check lipid panel once pt is LTC Recurrent falls 34384946 2 R29.6 continue PT OT monitor for fall risk didn't think that his drinking had much to do with his falls, says they usually happened in the morning and he did not start drinking till 11 am [id number] JESS Burden AT [address] [address] 07/18/2020 16:13:42 07/21/2020 16:23:47 Fracture of neck of femur 8931688 S72.001D mechanical fall at home, ORIF at [facility] lovenox 40 mg sq qd till 08/20 oxycodone 5 mg q 6 hrs prn monitor right hip incisions f/u with ortho in 4 weeks WBAT now Acute post hemorrhagic anemia 468235062 D62 now on iron and folic acid check cbc weekly Chronic ki dney disease stage 2 284721176 N18.2 pt's lisinopril was held at hospital - resumed on 07/12 avoid nephrotoxi c meds as able monitor renal function Hypertensive disorder 38 380277 I10 bp normal for his age lisinopril 20 mg qd 7 metoprolol 50 mg qd asa 81 mg qd monitor bp and adjust meds prn 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 753280 F51.4 known hx of per lexapro 10 mg qd remeron 7.5 mg qhs gabapentin off today per pt will wake up at night screaming psych to follow Vascular d ementia with behavioral disturbance 0710836264 32877 F01.51 per pt is forgetful will wait till pt is settled into unit to do [facility] supportive care expect decline Hearing loss 92794425 H9 1.93 known hx of supportive care Mixed hyperlipidemia 267 876471 E78.2 zetia 10 mg qd lipitor 80 mg qhs check lipid panel once pt is [facility] [id number] JESS Burden AT [address] [address] 07/22/2020 15:59:01 07/24/2020 11:51:12 Fracture of neck of femur 3682126 S72.001D lovenox 40 mg sq qd till 08/20 oxycodone 5 mg q 6 hrs prn monitor right hip incisions f/u with ortho in 3 weeks WBAT now Acute post hemorrhagic anemia 835968626 D62 now on iron and folic acid check cbc weekly Chronic ki dney disease stage 2 171741838 N18.2 pt's lisinopril was held at hospital - resumed on 07/12 avoid nephrotoxi c meds as able monitor renal function Hypertensive disorder 38 612535 I10 bp normal for his age lisinopril 20 mg qd metoprolol 50 mg qd asa 81 mg qd monitor bp and adjust meds prn 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 085707 F51.4 known hx of per lexapro 10 mg qd remeron 7.5 mg qhs per pt will wake up at night screaming psych prn Vascular d ementia with behavioral disturbance 9351063253 23400 F01.51 per pt is forgetful will wait till pt is settled into unit to do [facility] supportive care expect decline Mixed hyperlipidemia 267 991110 E78.2 zetia 10 mg qd lipitor 80 mg qhs check lipid panel once pt is [place] [id number] JESS Burden AT [address] [address] 07/24/2020 16:22:49 07/28/2020 15:46:18 Fracture of neck of femur 7332682 S72.001D lovenox 40 mg sq qd till 08/20 oxycodone 5 mg q 6 hrs prn monitor right hip incisions f/u with ortho in 3 weeks WBAT now moderate edema in RLE 2/2 sitting in wheelchair Acute post hemorrhagic anemia 534405246 D62 now on iron and folic acid check cbc weekly Chronic ki dney disease stage 2 709061379 N18.2 pt's lisinopril was held at hospital - resumed on 07/12 avoid nephrotoxi c meds as able monitor renal function Hypertensive disorder 38 643054 I10 bp normal for his age lisinopril 20 mg qd metoprolol 50 mg qd asa 81 mg qd monitor bp and adjust meds prn 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 434831 F51.4 known hx of per lexapro 10 mg qd remeron 7.5 mg qhs psych prn Vascular d ementia with behavioral disturbance 3239425981 58688 F01.51 supportive care expect decline [id number] JESS Burden AT [address] [address] 07/29/2020 14:51:03 08/01/2020 11:53:31 Fracture of neck of femur 2708330 S72.001D continue PT OT lovenox 40 mg sq qd till 08/20 oxycodone 5 mg q 6 hrs prn monitor right hip incisions f/u with ortho in 2 weeks WBAT now Acute post hemorrhagic anemia 372094734 D62 now on iron and folic acid check cbc weekly Chronic ki dney disease stage 2 028780509 N18.2 creat 1.1 on 07/24 - stable pt's lisinopril was held at hospital - resumed on 07/12 avoid nephrotoxi c meds as able monitor renal function Hypertensive disorder 38 951578 I10 bp normal for his age lisinopril 20 mg qd metoprolol 50 mg qd asa 81 mg qd monitor bp and adjust meds prn 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 649912 F51.4 known hx of per lexapro 10 mg qd remeron 7.5 mg qhs psych prn Vascular d ementia with behavioral disturbance 5222900068 02584 F01.51 supportive care expect decline [id number] JESS Burden AT [address] [address] 08/01/2020 13:45:56 08/04/2020 14:48:25 Fracture of neck of femur 2769225 S72.001D continue lovenox 40 mg sq qd till 08/20 oxycodone 5 mg q 6 hrs prn monitor right hip incisions f/u with ortho in 2 weeks WBAT now Acute post hemorrhagic anemia 024374261 D62 now on iron and folic acid check cbc weekly Chronic ki dney disease stage 2 805426396 N18.2 creat 1.1 on 07/24 - stable pt's lisinopril was held at hospital - resumed on 07/12 avoid nephrotoxi c meds as able monitor renal function Hypertensive disorder 38 002175 I10 bp normal for his age lisinopril 20 mg qd metoprolol 50 mg qd asa 81 mg qd monitor bp and adjust meds prn 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 062782 F51.4 known hx of per lexapro 10 mg qd remeron 7.5 mg qhs psych prn Vascular d ementia with behavioral disturbance 9216174402 16519 F01.51 supportive care expect decline pt will stay LTC Acute diarrhea 758828033 R19.7 will send out stool for c diff monitor for worsening stools [id number] MD [place] AT [address] [address] 08/04/2020 11:20:20 08/06/2020 14:15:38 Edema 902087291 R60.9 has chronic bilateral edema but much more so on right. Will get venous US of RLE to r/o DVT. Until result available will up lovenox dose to therapeuti c level. Fracture o f neck of femur 7762394 S72.001D will stop oxycodone now [id number] JESS Burden AT [address] [address] 08/07/2020 13:17:35 08/08/2020 15:38:28 Fracture of neck of femur 5666624 S72.001D decrease back to lovenox 40 mg sq qd till 08/20 tylenol prn monitor right hip incisions f/u with ortho WBAT now pt plateaued with rehab, off rehab RLE edema 2/2 femur fracture and repair no treatment at this time for Nguyễn's cyst Acute post hemorrhagic anemia 206161243 D62 now on iron and folic acid hgb slowly improving check cbc weekly Chronic ki dney disease stage 2 459838879 N18.2 creat 0.9 on 08/07 - stable pt's lisinopril was held at hospital - resumed on 07/12 avoid nephrotoxi c meds as able monitor renal function Hypertensive disorder 38 658055 I10 bp normal for his age lisinopril 20 mg qd metoprolol 50 mg qd asa 81 mg qd monitor bp and adjust meds prn 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 962210 F51.4 known hx of per lexapro 10 mg qd remeron 7.5 mg qhs psych prn Vascular d ementia with behavioral disturbance 2433066072 11739 F01.51 supportive care expect decline pt will stay LTC [id number] MD [place] AT [address] [address] 08/26/2020 10:27:09 08/28/2020 15:48:27 Macrocytic anemia 46416318 D53.9 found to be folate deficient in addition to previous B12 deficiency , now on both supplement s. Vitamin D deficiency 347 07351 E55.9 order read 250 mcg per day which is 10,000 units, reduced to 1000 units per day Mixed hyperlipidemia 267 481826 E78.2 continue current rx Glaucoma 47829122 H40.9 continue current rx Atheroscle rosis of coronary artery without angina pectoris 9542940238 44370 I25.10 continue beta priscilla, ASA, statin, no evidence of ischemia. Has mild edema which is stable and not causing any symptoms so will not treat Mild major depression 87 998543 F32.0 continue remeron and lexapro Hypertensive disorder 38 579293 I10 controlled with current rx. Dementia 72877340 F03.90 stable at this time, slow progressio n anticipate d Age relate d macular degeneration 277243765 H35.30 continue current supplement [id number] JESS Burden [address] [address] 09/04/2020 14:23:28 09/09/2020 10:33:48 Chronic kidney disease stage 2 236565619 N18.2 will dc lisinopril recheck BMP on 09/05 and 09/08 Hypertensive disorder 38 528689 I10 bp normal for his age dc lisinopril as above metoprolol 50 mg qd asa 81 mg qd monitor bp and adjust med prn [id number] JESS Burden [address] [address] 09/09/2020 14:10:22 09/11/2020 15:27:14 Fracture of neck of femur 3885365 S72.001D healed f/u with ortho prn Acute post hemorrhagic anemia 696857440 D62 remains on folic acid 1 mg qd hgb stable btwn 9-10 monitor cbc Chronic ki dney disease stage 2 134393499 N18.2 see above avoid nephrotoxi c meds as able monitor renal function Hypertensive disorder 38 252069 I10 bp normal lisinopril on hold re-eval in 2 days metoprolol xl 50 mg qd asa 81 mg qd monitor bp and adjust meds prn Vascular d ementia with behavioral disturbance 1323801141 39130 F01.51 mood stable remeron 7.5 mg qhs lexapro 10 mg qd supportive care expect decline monitor mood, behaviors psych prn Acute kidney injury 1466 9001 N17.9 see hpi mcpherson placed in hospital recommend voiding trial in one week lisinopril on hold, re-eval in 2 days creat 1.5 on 09/09 will need f/u with DR Miguel barragan in [place] in one week pt has hx of bladder cancer Atheroscle rosis of coronary artery without angina pectoris 7514833358 36547 I25.10 atorvastat in 80 mg qhs asa 81 mg qd zetia 10 mg qd monitor for chest pain, sob [id number] JESS Burden AT [address] [address] 09/11/2020 13:18:36 09/16/2020 10:23:21 Acute kidney injury 41467699 N17.9 mcpherson placed in hospital recommend voiding trial in one week lisinopril on hold - would not resume as BP is low normal creat 1.2 on 09/10 f/u with DR Miguel barragan in [place] on 10/22 pt has hx of bladder cancer Fracture o f neck of femur 0758099 S72.001D healed f/u with ortho prn Acute post hemorrhagic anemia 654782347 D62 remains on folic acid 1 mg qd hgb stable btwn 9-10, though slightly lower on 09/10 at 8.9 continue to monitor cbc Chronic ki dney disease stage 2 706035454 N18.2 see above avoid nephrotoxi c meds as able monitor renal function Hypertensive disorder 38 562687 I10 bp low normal do not resume lisinopril metoprolol xl 50 mg qd asa 81 mg qd monitor bp and adjust meds prn Vascular d ementia with behavioral disturbance 4320560264 00964 F01.51 SLUMS 27/30 states normal but pt does have issues with insight and while essentiall y normal SLUMS pt did not understand the workings of his mcpherson, thought he was at [facility] now, has issues with insight mood stable remeron 7.5 mg qhs lexapro 10 mg qd supportive care expect decline monitor mood, behaviors psych prn Atheroscle rosis of coronary artery without angina pectoris 6621002403 64205 I25.10 atorvastat in 80 mg qhs asa 81 mg qd zetia 10 mg qd monitor for chest pain, sob [id number] MD [place] AT [address] [address] 09/16/2020 08:26:07 09/18/2020 12:12:41 Retention of urine 303240882 R33.9 presumed due to BPH, has been on flomax for about 10 days, time for a voiding trial. Will stop mcpherson today, reinsert if unable to void in 8 hours or if PVR > 300 cc in next few days. Chronic ki dney disease stage 2 [id number] N18.2 at his baseline Hypoalbuminemia 10073227 4 E88.09 chronic and stable Hypertensive disorder 38 329732 I10 controlled with current rx, will not resume lisinopril at this time [id number] ANIL WARD AT [address] [address] 09/17/2020 12:58:47 10/17/2020 14:56:26 Retention of urine 072424539 R33.9 --1st 2 PVRs s/p mcpherson removal acceptable --cont to monitor PVRs; if > 300 cc, reinsert mcpherson--con t Flomax 0.4mg po qhs--outpa tient f/u w/ urology 10/22/20 Macrocytic anemia 343658 05 D53.9 --H&H down minimally vs last week--poss ibly multifacto rial given pmhx--cont B12 supps for hx B12 defic & macrocytic anemia--co nt to monitor; if persists or worsens, consider stool guaiacs & additional labs Leukocytosis 780688177 D 72.829 --mild; no fever, exam neg, ROS neg--cont to monitor clinically Chronic ki dney disease stage 2 757633823 N18.2 --Cr stable at 1.2--cont routine monitoring --avoid nephrotoxi c meds [id number] ANIL RM AT [address] [address] 09/23/2020 13:13:42 10/01/2020 11:02:47 Amewt-fa-vcicxir renal failure 959868262 N17.9 Hx obstructiv e uropathyBl adder scan [...] impair renal functionFo llow labs Macrocytic anemia 109459 05 D53.9 Significan t dropNo cardiac/re spiratory complaints Stool guaiac x 3Continue ASA for nowNo evidence of bleeding into site of hip fractured/ c B12 since level very therapeuti c and MMA negativeFo llow labs Acute hyponatremia 65914 02 E87.1 significan t drop over past 5 daysNot on any meds that typically affect serum Daniela evidence of volume overload on exam so may be hypovolemi c hyponatrem ia and may be giving IVF if not retaining (see above) Vitamin D deficiency 347 76577 E55.9 Check level given renal impairment ; may need or be able to d/c [id number] ANIL RM AT [address] [address] 09/24/2020 12:47:44 10/01/2020 11:13:29 Acute heart failure 16309079 I50.9 Probably iatrogenic from IVF although barely got more than 1 literWeigh t up 21 lbs since earlier this month although unk if gradual or acutePt is dyspneic although with clear lungsHeart M is newLasix 20 mg po x 1Daily weights x 1 week then weeklyCons ider repeat echo Urinary tr act obstruction 4910036 N13.9 Nurse just now bladder scanned pt for 999 ml (scanner does not go higher than this)She straight cath'd him for 900 ml then 700 ml and he was still passing urineFoley catheter to gravityInc rease Flomax to 0.8 mg po qhs - start tonightRen al and bladder u/s done during recent hospitaliz ation unrevealin [facility] ed to f/u Miguel i for cystoscopy due to hx bladder caU/A pend and will be reviewed when available as acute UTI can also cause retention Acute hyponatremia 77671 02 E87.1 Serum osm, Urine osm/Na/Cr pendProbab ly related to intrinsic AKIdivalen ts pend for tomorrow Acute post hemorrhagic anemia 966412369 D62 Stool guaiacs pendCBC pend for am although may be hemodilute d from IVF Vitamin D deficiency 347 84234 E55.9 Level pend and will be reviewed when available [id number] ANIL RM AT [address] [address] 09/25/2020 10:54:42 10/01/2020 11:24:41 Acute heart failure 12453864 I50.9 Weight down drasticall y overnight although [...] drawn this am Urinary tr act obstruction 9145669 N13.[address] and functionin gFlomax was increased as of last nightHas appointmen t with urology later this monthFaile d voiding trialGiven ongoing retention and hx bladder ca with recommenda tion for cystoscopy , will not reattempt voiding trial between now and urology f/u Acute hyponatremia 89740 02 E87.1 Serum Na improvedFo llow divalents Acute post hemorrhagic anemia 171556031 D62 Stool guaiacs pendRemain s on ASAH&H essentiall y unchanged last few daysFollow labsCheck Fe studies and hemolysis labs Vitamin D deficiency 347 79914 E55.9 Suprathera peutic leveld/c supplement Acute-on-c hronic renal failure 306124588 N17.9 Improved with insertion of Mcpherson and brief IVFCheck MgFollow labs [id number] ANIL RM AT [address] [address] 09/26/2020 10:10:32 10/18/2020 03:48:37 Hypomagnesemia 291424791 E83.42 Mag oxide 400 mg po dailyMg level 1 week Anemia in chronic kidney disease 373681640 D63.1 hemolysis labs negative so far -- await rest of resultseut hyroidanem ia likely related to CKDfollow CBC [id number] ANIL RM AT [address] [address] 09/30/2020 11:17:42 10/17/2020 15:46:42 Lower urinary tract obstructive syndrome 76550130 N13.9 resolved with FoleyConti nue Mcpherson until seen by uroConmonicau brigid Flomax 0.8 mg po qhsUrology f/u later this month Acute-on-c hronic renal failure 503774004 N17.9 resolved with FoleyRenal labs baseline Acute post hemorrhagic anemia 481248950 D62 Stool guaiacs pendH&H improvedre ameya on daily ASAhemolyt ic labs negative Congestive heart failure 27012442 I50.9 EKG and Echo unrevealin gWeight overall down since Mcpherson insertionD yspnea resolvedEd elina improvedOn ly had a 1-time dose of LasixMay have all been related to obstructiv e uropathyFo llow clinically No indication for diuretic therapy at this time [id number] ANIL RM AT [address] [address] 10/02/2020 14:32:39 10/17/2020 16:00:00 Anemia of chronic renal failure 80529204 D63.1 H&H down from prior but overall stableAwai t rest of stool guaiacsFol low CBC Secondary hypomagnesemia 792160115 E83.42 level therapeuti c on supplement no changes needed at this time Acute-on-c hronic renal failure 004994516 N17.9 resolved with FoleyLabs stableNo changes Weight loss 29162578 R63 .4 Had only 1 dose Lasix after iatrogenic CHF from IVFNot sure if weights closer to admit were validFollo w clinically [id number] ANIL RM AT [address] [address] 10/06/2020 15:01:18 10/21/2020 03:48:24 Anemia in chronic kidney disease 994394366 D63.1 stool guaiacs negcontinu e ASAFollow labs [id number] ANIL RM AT [address] [address] 10/10/2020 19:02:32 10/30/2020 03:48:34 Chronic anemia 412761602 D64.9 suspect due to CKDGuaiacs negativeIm proved and stableNo change in plansDecre ase frequency of monitoring labs Chronic ki dney disease stage 3 978719845 N18.30 improved and baselineAK I resolved with treatment of obstructiv e uropathyDe crease frequency of lab monitoring [id number] ANIL RM AT [address] [address] 10/16/2020 21:16:04 10/22/2020 03:47:58 Emdxw-fq-xytagoe renal failure 549786739 N17.9 resolved with FoleyLabs stable - clarify lab monitoring has been adjusted to less frequent [id number] ANIL RM AT [address] [address] 10/22/2020 20:38:45 12/11/2020 03:48:27 Retention of urine 265022924 R33.9 Continue indwelling FoleyClari fy with urologist if Flomax should be continued or if there is a plan for future voiding trial [id number] MD WEST CASTELLON AT [address] [address] 10/28/2020 13:17:00 10/31/2020 13:07:51 Hypertensive disorder 19274637 I10 controlled with current rx, Coronary atherosclerosis 071840039 I25.10 no evidence of failure or ischemia at this time 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 continue remeron and lexapro Retention of urine 49225 4002 R33.9 presumed due to BPH, treated with flomax but failed voiding trial and urology recommends chronic mcpherson, will stop flomax Dementia 29375916 F03.90 stable at this time, slow progressio n anticipate d [id number] ANIL RM AT [address] [address] 11/28/2020 13:08:51 12/03/2020 12:21:01 Benign prostatic hyperplasia with outflow obstruction 754285936 N40.1 Chronic FoleyPrevi ously failed voiding trialsSeen by urologistn o plan for future voiding trialsMoni tor and f/u prn Chronic ki dney disease stage 3 874598261 N18.30 StableCaut ion with nephrotoxi c meds Dyslipidemia 952347260 E 78.5 Continue Lipitor 80 mg po qhsHx CVA and CAD -- no change in dose at this time [id number] MD WEST CASTELLON AT [address] [address] 12/24/2020 14:45:19 12/26/2020 10:55:08 Atherosclerosis of coronary artery without angina pectoris 6611100870 27457 I25.10 continue beta priscilla, ASA, statin, no evidence of ischemia or failure Dementia 64718694 F03.90 stable at this time, slow progressio n anticipate d Glaucoma 65727905 H40.9 continue current rx Hypertensive disorder 38 828770 I10 last reading slightly elevated but at gaol 90% of recent reading so will continue with current rx, Mild major depression 87 736661 F32.0 doing well on remeron and lexapro Retention of urine 11379 4002 R33.9 presumed due to BPH, treated with flomax but failed voiding trial and urology recommends chronic mcpherson [id number] JESS Burden AT [address] [address] 02/09/2021 15:12:57 02/11/2021 12:52:38 Atherosclerosis of coronary artery without angina pectoris 7414204768 47374 I25.10 atorvastat in 80 mg qhs asa 81 mg qd zetia 10 mg qd monitor for chest pain, sob Dementia 24135495 F01.50 supportive careexpect declineno treatment Mild major depression 87 089694 F32.0 mood stablelexa pro 5 mg qdremeron 7.5 mg qhsmonitor moodpsych prn Hypertensive disorder 38 311965 I10 sbp readings 120s-150s metoprolol xl 50 mg qd asa 81 mg qd monitor bp and adjust meds prn [id number] MD WEST CASTELLON AT [address] [address] 03/16/2021 09:15:33 03/19/2021 11:35:27 Atherosclerosis of coronary artery without angina pectoris 8994658312 86652 I25.10 continue beta priscilla, ASA, statin, no evidence of ischemia or failure Cobalamin deficiency 190 296476 E53.8 continue rx with oral B12 Dementia 20016261 F01.50 stable at this time, slow progressio n anticipate d Glaucoma 46111886 H40.9 continue current rx Hypertensive disorder 38 254923 I10 bp elevated 40% of recent readings, will up metoprolol to 100 mg daily Mild major depression 87 606822 F32.0 doing well on remeron and lexapro [id number] JESS Burden [facility] AT [address] [address] 04/28/2021 14:09:23 05/01/2021 12:11:28 Atherosclerosis of coronary artery without angina pectoris 3464517590 44897 I25.10 atorvastat in 80 mg qhs asa 81 mg qd zetia 10 mg qd monitor for chest pain, soblipid panel, CMP, CBC on 04/29 Dementia 08422836 F01.50 supportive careexpect declineno treatment Mild major depression 87 308006 F32.0 mood stablelexa pro 7.5 mg qdremeron 7.5 mg qhsmonitor moodpsych prn Hypertensive disorder 38 651442 I10 bp slightly elevated, no change metoprolol xl 100 mg qd asa 81 mg qd monitor bp and adjust meds prn Retention of urine 20477 4002 R33.9 schedule flush of mcpherson with 10 cc normal saline q Tuesday and prn discomfort will f/u with urolgist in [id number] JESS Burden [facility] AT [address] [address] 06/01/2021 13:08:44 06/03/2021 11:39:30 Dementia 56982870 F01.50 Mood stablesupp ortive careexpect declineno treatment Hypertensive disorder 38 572829 I10 BP is stableCont inue metoprolol xl 100 mg qd Continue asa 81 mg qd monitor bp and adjust meds prn Cough 95116171 R05.8 Patient c/o non-produc tive cough. Wheezing noted to bilateral lungs.Star t Albuterol 90mcg inhaler with aerochambe r - 2 puffs PO three times a day x1week and every 4 hours PRN for wheezing/S OBRobituss in - 10ml PO Q6H PRN coughmonit or for worsening sxs [id number] MD WETS Delgado AT [address] [address] 06/03/2021 07:59:26 06/09/2021 09:37:31 Dementia 31331458 F01.50 will monitor and support as neededexpe ct declinesee meds for mixed anxiety/de pressive disorder Coronary atherosclerosis 400604553 I25.10 ASA 81 mg dailyatorv astatin 80 mg dailymetop rolol ER 100 mg dailywill monitor Cobalamin deficiency 190 716851 E53.8 B12 1000 mcg dailywill monitor Hypertensive disorder 38 092870 I10 metoprolol ER 100 mg dailywill monitor 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 escitalopr am 7.5 mg dailymirta zapine 7.5 mg at hswill monitor Hyperlipidemia 60260223 E78.49 ezetimibe 10 mg dailyatorv astatin 80 mg dailywill monitor Cough 05471034 R05.1 suspect URIconside r GERD, pneumonia, pulmonary edema if persists or worsensalb uterol HFA: 2 puffs q4h prnguaifen esin liquid prnconside r CXR, short course steroids for acute bronchitis if symptoms persist [id number] ÁNGELA Camacho AT [address] [address] 06/08/2021 12:26:22 06/10/2021 11:09:03 Dementia 58353204 F01.50 monitor and support as neededexpe ct declinesee meds for mixed anxiety/de pressive disorder Mixed anxi ety and depressive disorder 349035337 F41.8 contescita lopram 7.5 mg dailymirta zapine 7.5 mg at hsmonitor Cough 74851252 R05.1 suspect URIconside r GERD, pneumonia, pulmonary edema if persists or worsenscon t albuterol HFA: 2 puffs q4h prncont guaifenesi n liquid prnCXR done this am. Awaiting results.co nsider short course steroids for acute bronchitis if symptoms persist [id number] JESS Burden AT [address] [address] 06/15/2021 17:16:30 06/18/2021 13:25:15 Respiratory tract congestion and cough 123700253 R05.8 does not appear to be in distressco ntinue prn proventil and robitussin monitor for worsening sxs [id number] JESS Do AT [address] [address] 07/08/2021 13:00:08 07/15/2021 11:04:27 Dementia 68759177 F01.50 Appears mild-moder ate at baselineEx pect declinePsy ch eval prnsee meds for mixed anxiety/de pressive disorder Coronary atherosclerosis 504170106 I25.10 ASA 81 mg dailyatorv astatin 80 mg dailymetop rolol ER 100 mg dailywill monitor Cobalamin deficiency 190 527414 E53.8 B12 1000 mcg dailywill monitor Hypertensive disorder 38 330759 I10 metoprolol ER 100 mg dailyAppea rs well controlled will monitor Mixed anxi ety and depressive disorder 530876418 F41.8 escitalopr am 7.5 mg dailymirta zapine 7.5 mg at hsPsych eval prn Hyperlipidemia 40789575 E78.49 ezetimibe 10 mg dailyatorv astatin 80 mg dailywill monitor [id number] ÁNGELA Camacho AT [address] [address] 07/13/2021 11:11:32 07/15/2021 14:24:19 Dementia 20081508 F01.50 Appears mild-moder ate at baselineEx pect declinePsy ch eval prnsee meds for mixed anxiety/de pressive disorder SARS-CoV-2 331518514 U07 .1 tested positive for covid 19 on 07/12/21sta rted on paxlovid on 07/13/21 x5 daysstart mucinex po bid prnwill get labs weekly x 2 weeksencou rage fluidsprec autions in placemonit or Impacted c erumen in left ear 3773456461 032697 H61.22 impacted cerumen to left eardebrox 4 gtts to left ear bid x 3 days and flush on day 4 with warm watermonit or [id number] JESS Burden AT [address] [address] 07/14/2021 12:42:55 07/16/2021 11:35:40 Dementia 97085186 F01.50 supportive careExpect declinemoo d stablereme pepito 7.5 mg qhslexapro 7.5 mg qdPsych prn Coronary atherosclerosis 094219988 I25.10 ASA 81 mg qdatorvast atin 80 mg qhsmetopro lol ER 100 mg qdezetmibe 10 mg qdmonitor for sob, chest pain Hypertensive disorder 38 224113 I10 BP elevated today though most readings are SBP < 150continu e metoprolol ER 100 mg qdcontinue BP QDadjust meds prn Mixed anxi ety and depressive disorder 163648900 F41.8 mood stableesci talopram 7.5 mg qdmirtazap ine 7.5 mg qhsPsych prn Hyperlipidemia 89764241 E78.49 ezetimibe 10 mg qdatorvast atin 80 mg qdLFTs and lipid panel normal in May 2021 SARS-CoV-2 948456891 U07 .1 tested positive for covid 19 on 07/12/21sta rted on paxlovid on 07/13/21 x5 daysstart mucinex po bid prnwill get labs weekly x 2 weeksmonit or for resp, gi distress, bowelsenco urage fluidsprec autions in placemonit or [id number] Beatriz Cleaning NP [place] AT [address] [address] 07/15/2021 16:12:32 07/17/2021 10:46:04 SARS-CoV-2 375722438 U07.1 tested positive for covid 19 on 07/12/21sta rted on paxlovid on 07/13/21 x5 dayscontin uemucinex po bid prnlabs weekly x 2 weeks to monitor renal function with history of akiencoura ge fluidsprec autions in placemonit or Impacted c erumen in left ear 8321232429 369964 H61.22 impacted cerumen to left eardebrox 4 gtts to left ear bid x 3 days and flush on day 4 with warm water started on 4/18monito r Dementia 66126133 F01.50 Appears mild-moder ate at baselineEx pect declinePsy ch eval prnsee meds for mixed anxiety/de pressive disorder [id number] Gerardo Fraire NP [place] AT [address] [address] 07/16/2021 15:25:35 07/20/2021 16:15:35 SARS-CoV-2 158809588 U07.1 tested positive for covid 19 on 07/12/21sta rted on paxlovid on 07/13/21 x5 dayscontin uemucinex po bid prnlabs weekly x 2 weeks to monitor renal function with history of akiencoura ge fluidsprec autions in placemonit or and adjust interventi ons as indicated Impacted c erumen in left ear 6538196625 586275 H61.22 impacted cerumen to left eardebrox 4 gtts to left ear bid x 3 days and flush on day 4 with warm water started on r and adjust interventi ons as indicated [id number] Beatriz Cleaning NP [facility] AT [address] [address] 07/17/2021 14:11:19 07/21/2021 14:15:59 SARS-CoV-2 961681003 U07.1 tested positive for covid 19 on 07/12/21sta rted on paxlovid on 07/13/21 x5 dayscontin uemucinex po bid prnstart tessalon perles 100 mg po tidlabs weekly x 2 weeks to monitor renal function with history of akiencoura ge fluidsprec autions in placemonit or and adjust interventi ons as indicated Impacted c erumen in left ear 6711439455 908391 H61.22 impacted cerumen to left earspeak loudly into left ear as it is his better eardebrox 4 gtts to left ear bid x 3 days and flush on day 4 with warm water started on ito r and adjust interventi ons as indicated [id number] JESS Burden [facility] AT [address] [address] 07/20/2021 15:37:13 07/22/2021 11:32:23 SARS-CoV-2 440768600 U07.1 tested positive for covid 19 on 07/12/21fin ished paxlovidmu cinex po bid and q day prntessalo n perles 100 mg po tid till 07/25/21lab s weekly x 2 weeks to monitor renal function with history of akiencoura ge fluidsprec autions in placemonit or and adjust interventi ons as indicated Impacted c erumen in left ear 3510848578 160836 H61.22 pt continues with cerumen blockage in both earsrefer to ENT to flush ears [id number] ÁNGELA CamachoLEY AT [address] [address] 07/22/2021 19:17:12 07/27/2021 10:48:18 SARS-CoV-2 267853431 U07.1 tested positive for covid 19 on 07/12/21 and finished quarantine todayfinis hed paxlovidmu cinex po bid and q day prntessalo n perles 100 mg po tid till 07/25/21lab s okayencour age fluidsprec autions in placemonit or and adjust interventi ons as indicated Impacted c erumen in left ear 5604731214 567135 H61.22 pt continues with hearing decreasere terra to ENT to flush ears ([facility])pt states has an appt to fix his broken hearing aidemonito r [id number] Beatriz Cleaning NP [facility] AT [address] [address] 07/27/2021 12:31:31 07/29/2021 11:03:43 SARS-CoV-2 289115359 U07.1 resolvedte sted positive for covid 19 on 07/12/21 and finished quarantine todayfinis hed paxlovidfi nished mucinex po bid and q day prn, tessalon perles 100 mg po tid till 07/25/21 Impacted c erumen in left ear 0020536914 762565 H61.22 pt continues with hearing decrease?r efer to ENT to flush ears ([facility]) only getting bulb syringe flushesit is unclear if he is [facility] a [facility] or a pcpsocial work consulted to help with care as it is not clear if james garber is a specialist or pcp per wifeluther g aides fixed per wifecontin ue debrox 5 gtts to left ear twice today and then bid until july 30 then send to [facility] for fu or flush here.monit [place] [id number] ÁNGELA Camacho AT [address] [address] 07/31/2021 11:58:04 08/03/2021 14:03:21 Impacted cerumen in left ear 2232346926 238898 H61.22 pt hearing improved todayhe follows at the [facility] for his increased cerumen with hearing loss and hearing aidshad cerumen removed at [facility] with drill on 07/30 and hearing is improvedde brox 4 gtts to each ear bid x 3 days and flush on day 4 with warm water monthly start on 09/08/21app t to fu with Dr. Randy almaguer at [facility] on 11/11/21 and needs flushing prior which will coincide with abovemonit or [id number] MD WEST Delgado AT [address] [address] 08/12/2021 07:36:17 08/17/2021 12:26:10 Coronary atherosclerosis 488056555 I25.10 ASA 81 mg dailyatorv astatin 80 mg dailymetop rolol ER 100 mg dailywill monitor Cobalamin deficiency 190 896848 E53.8 B12 1000 mcg dailywill monitor Hypertensive disorder 38 730857 I10 metoprolol ER 100 mg dailywill monitor Mixed hyperlipidemia 267 631195 E78.2 ezetimibe 10 mg dailyatorv astatin 80 mg dailywill monitor Mixed anxi ety and depressive disorder 140990174 F41.8 escitalopr am 7.5 mg dailymirta zapine 7.5 mg at hswill monitor Osteoarthritis 367510726 M15.0 APAP 1000 mg bid and 500 mg q4h prnwill monitor SARS-CoV-2 339331534 U07 .1 tested positive 07/12/21sta rted Paxlovid 07/13/21had mild course and recoveredw ill continue to monitor Impaired cognition 79884 6002 R41.89 will monitor and support as neededexpe ct declinesee meds for mixed anxiety/de pressive disorder [id number] ÁNGELA Camacho AT [address] [address] 08/13/2021 14:22:15 08/17/2021 12:49:42 Dementia 10241739 F01.50 Appears mild-moder ate at baselineEx pect declinePsy ch eval prnsee meds for mixed anxiety/de pressive disorder Hypertensive disorder 38 871638 I10 pt has increased bp of 172/70 however recent bps on the high side in the 140's lately.sta rt amlodipine 2.5 mg po dailyhr low at 47 x1, usually in the 55-72 rangeconsi luis decreasing metoprolol if hr cont to be lowmonitor [id number] JESS Burden AT [address] [address] 08/31/2021 15:20:33 09/02/2021 14:18:06 Retention of urine 118452985 R33.9 pt is feeling fine todayconti nue flush of mcpherson with 10 cc normal saline q Tuesday and prn discomfort will f/u with urologist in pt has another episode of bladder spasms not relieved with mcpherson flush then could consider adding small dose of oxybutynin at hs [id number] ÁNGELA CamachoLEY AT [address] [address] 09/14/2021 12:00:28 09/16/2021 14:07:50 Dementia 05826410 F01.50 Appears mild-moder ate at baselineSL UMS todayExpec t declinePsy ch eval prnsee meds for mixed anxiety/de pressive disorder Hypertensive disorder 38 057204 I10 recently had amlodipine 2.5 mg po daily added in Julybps remain labile with less high bpsconside r decreasing metoprolol if hr cont to be lowhr 60 today and stablemoni tor Coronary atherosclerosis 340137749 I25.10 contASA 81 mg dailyatorv astatin 80 mg dailymetop rolol ER 100 mg dailywill monitor Cobalamin deficiency 190 098968 E53.8 contB12 1000 mcg dailywill monitor Mixed hyperlipidemia 267 367122 E78.2 contezetim johanna 10 mg dailyatorv astatin 80 mg dailywill monitor Mixed anxi ety and depressive disorder 934666339 F41.8 contescita lopram 7.5 mg dailymirta zapine 7.5 mg at hswill monitor Osteoarthritis 657971193 M15.0 contAPAP 1000 mg bid and 500 mg q4h prnwill monitor Impaired cognition 16164 6002 R41.89 will monitor and support as neededexpe ct declinesee meds for mixed anxiety/de pressive disorder Hearing loss 52250607 H9 1.93 pt is following up at [facility] he does not need debrox anymoremon itor Retention of urine 79415 4002 R33.9 reports blockage of urine yesterday resolved with new foleycontc hange mcpherson out per nsg and flush mcpherson as neededusin g leg bag and night bagmonitor urine for amt/color/ clarity [id number] ÁNGELA Camacho AT [address] [address] 09/16/2021 14:26:27 2021 16:24:55 Coronary atherosclerosis 533879552 I25.10 HR is 49 today and has had several low hr/asympto maticcontA SA 81 mg dailyatorv astatin 80 mg dailydecre ase metoprolol ER 100 mg daily to 50 mg ER dailywill monitor [id number] MD WE[facility] Delgado AT [address] [address] 10/21/2021 06:29:01 10/23/2021 12:03:41 Dementia 15314438 F01.50 will monitor and support as neededexpe ct declinesee meds for mixed anxiety/de pressive disorder Coronary atherosclerosis 753937547 I25.10 ASA 81 mg dailyatorv astatin 80 mg dailymetop rolol ER 50 mg dailywill monitor Cobalamin deficiency 190 002882 E53.8 B12 1000 mcg dailywill monitor Mixed anxi ety and depressive disorder 291029193 F41.8 escitalopr am 7.5 mg dailymirta zapine 7.5 mg at hswill monitor Osteoarthritis 242092140 M15.0 APAP 1000 mg bid and 500 mg q4h prnwill monitor Mixed hyperlipidemia 267 304342 E78.2 ezetimibe 10 mg dailyatorv astatin 80 mg dailywill monitor Hypertensive disorder 38 396968 I10 metoprolol ER 50 mg dailyamlod ipine 2.5 mg dailywill monitor [id number] Beatriz Clenaing NP [place] AT [address] [address] 11/03/2021 12:22:43 11/05/2021 11:26:48 Dementia [id number] F01.50 monitor and support as needed at [facility] for mixed anxiety/de pressive disorder Coronary atherosclerosis [id number] I25.10 ASA 81 mg dailyatorv astatin 80 mg dailymetop rolol ER 50 mg daily(rece ntly decreased due to low hr in the 40s, now stable)mon itor with pcp Cobalamin deficiency 190 660601 E53.8 B12 1000 mcg dailymonit or with pcp Mixed anxi ety and depressive disorder [id number] F41.8 escitalopr am 7.5 mg dailymirta zapine 7.5 mg at hsmonitor with pcp Osteoarthritis 658841003 M15.0 APAP 1000 mg bid and 500 mg q4h prnmonitor with pcp Mixed hyperlipidemia 267 710230 E78.2 ezetimibe 10 mg dailyatorv astatin 80 mg dailymonit or with pcp Hypertensive disorder 38 112388 I10 metoprolol ER 50 mg daily (hr stable in 60s after decrease)a mlodipine 2.5 mg dailybp monitor with pcp (140s /70s lately) Hyperlipidemia 54160247 E78.49 ezetimibe 10 mg qdatorvast atin 80 mg qdLFTs and lipid panel normal in May 2021monito r with pcp Age relate d macular degeneration [id number] H35.30 stablelant anoprolst sha 0.005 % 1 gtt to both eyes dailyprese rvision 1 tab bidmonitor with pcp Retention of urine 22532 4002 R33.9 reports blockage of urine yesterday [...] Directives Directive Y: DNR, DNI, transfer to [facility] pital, no dialysis, no artificial nutrition Payers Insurance Date Sequence Insurance Name Policy Number Policy Molina Covered Member ID Molina Member ID Guarantor Name 11/03/2021 2 [place] [facility] Maik Akins Elen [id number] Maik Myrick 11/03/2021 1 [place] [employer] Maik Akins Elen [id number] Maik Myrick 09/26/2020 1 [place]: [place] (MEDICARE REPLACEMENT PPO) [id number] Maik Elen [id number] Maik Myrick Notes Date Note Type Note [...] hospital - signed 02/27/21 JESS Burden [address], [address], [place], [address], [facility] 08/31/2021 15:29:11 09/14/2021 text/html ROS as noted in the HPI This 85 year old male nursing home care resident is seen today for routine rounding visit. Medical history is remarkable for cognitive impairment, CAD, hypertension, depression, hyperlipidemia, unsteady gait, chronic urinary retention with Mcpherson Patient had significantly reduced hearing despite hearing aides. He was seen at [facility] and patient reported that a drill was used to removed impacted cerumen with terrific improvement in his hearing. He now has a plan to go to [facility] regularly to monitor cerumen in ears. He [...] - signed 02/27/21 Beatriz Cleaning NP [address], [address], [place], [address], [facility] 09/14/2021 13:12:00 09/16/2021 text/html ROS as noted in the HPI This 85 year old male nursing home care resident is seen today for an [...] fine and cooperative with assessment today in [facility]. He understands this [employer] APPRENTICE will reduce his metoprolol today. MOLST: DNR, DNI, okay to transfer to hospital - signed 02/27/21 Beatriz Cleaning NP [address], [address], [place], [address], [facility] 09/16/2021 14:37:41 10/21/2021 text/html ROS as noted in the HPI This 86 year old male nursing home care resident is seen today for routine [...] wheelchair in his room watching television in [facility]. He tells me that he feels good today. MOLST: DNR, DNI, okay to transfer to hospital - signed 02/27/21 Deya Krishnan MD [address], [address], [place], [address], [facility] 10/21/2021 10:58:23 11/03/2021 text/html ROS as noted in the HPI This 86 year old male nursing home care resident is seen today for a discharge visit. Medical history is remarkable for cognitive impairment, CAD, hypertension, depression, hyperlipidemia, unsteady gait, chronic urinary retention with Mcpherson, hx of right fractured femur healed now. Recently at [place] his pulse had been running low, so metoprolol ER decreased to 50 mg daily on 09/17/21 with good effect. Pulse now in 60s and BP in 140s/ 70s range. He had a significant cerumen impaction effecting both ears requiring multiple debrox treatments and [facility]. [facility] in [...] - signed 02/27/21 Beatriz Cleaning NP [address], [address], [place], [address], [facility] 11/03/2021 12:38:51
--- NOTE | 2025-03-12 22:33 | P.DN_ITS ---
Discharge Sum: Prov Provider Primary care physician: Unknown Physician Admitting clinician: Sagrario Cancino Attending physician on admission: Mike Vang Pronouncing clinician: Melody Lindo Discharge Sum: Diag PCOD Cause of : Acute respiratory failure with hypoxia Contributing Factors (1) Pneumonia: (2) Dementia with behavioral problem: Discharge Sum: Summary Date and Time Date of admission: 03/12/25 15:03 Date of : 03/12/25 Time of : 21:58 Summary Details: hpi:89-year-old male with history of dementia, hypertension, hyperlipidemia, chronic kidney disease stage IIIA, heart failure, CAD, AFib on Eliquis, bladder cancer with suprapubic catheter last changed 03/06/2025, UTI (klebsiella, VRE, Pseudomonas), osteoarthritis, glaucoma, mood disturbance, anemia, hyperlipidemia, COPD currently resides at the [facility] in [place] and there was a complaint of a fall that was unwitnessed. Patient noted to be on anticoagulation and patient was sent into the ED for further evaluation. Currently patient is having trouble giving any specifics related to the fall and had no idea he was currently in the hospital. According to the ED provider's note patient initially stated he was getting out of his wheelchair, going to the bed when he tripped and fell on the right side striking his head on the ground. Patient does have a small abrasion on the left upper frontal area of the skull. At the time patient denied any LOC. Patient was endorsing discomfort to the right anterior ribs. Patient was already being treated for pneumonia at the [facility] and currently came in on Augmentin. Patient recently started using oxygen as well. Patient is not currently alert and orientated to place and time. Workup in the ED included head CT and cervical spine CT both negative for acute findings with chronic not urgent or nonacute findings. CT of the chest shows a significantly elevated left hemidiaphragm with pulmonary opacities likely secondary to compressive atelectasis. Pneumonia can not be excluded. Patient has a minimal left pleural effusion. No pneumothorax. Healed right 8th and 9th rib fractures. No acute fracture found. Patient also found to have sludge in the gallbladder. Patient denies any abdominal pain and is not having tenderness on exam. Patient does have a leukocytosis of 13.1 with stable anemia/H&H 13.7 and 39.7. Platelets 193. Electrolytes stable renal function at baseline with a creatinine clearance of 36.9 and a GFR of 49. Glucose 125. LFTs within normal limits. UA +2 protein, +3 heme, +2 leukocyte esterase, 21-50 WBCs, and +1 bacteria. Viral testing/respiratory panel pending. Noting patient has history of VRE, Klebsiella and Pseudomonas with possible underlying pneumonia with high suspicion for aspiration, starting patient on linezolid and we will continue the ceftriaxone. This was reviewed with pharmacist and was deemed appropriate treatment. Patient also on precautions. Hospital course:89-year-old male with history of dementia, hypertension, hyperlipidemia, chronic kidney disease stage IIIA, heart failure, CAD, AFib on Eliquis, bladder cancer with suprapubic catheter last changed 03/06/2025, UTI (klebsiella, VRE, Pseudomonas), osteoarthritis, glaucoma, mood disturbance, anemia, hyperlipidemia, COPD currently resides at the [facility] in [place] and there was a complaint of a fall that was unwitnessed. Patient noted to be on anticoagulation and patient was sent into the ED for further evaluation. Patient does not present with evidence of sepsis on admission. Patient being admitted for the following medical problems: Patient was initially admitted for acute hypoxemic respiratory failure secondary to possible aspiration as well as UTI, in addition patient was status post fall(CT of the head and CT of the cervical spine negative for acute findings): Patient was started on IV antibiotics, oxygen , incentive spirometry chest physiotherapy: With the above management patient did not improve much: Hypoxemia continued to worsen, subsequently also was started on IV Lasix of possible CHF, also patient has toxic metabolic encephalopathy secondary to above. Patient management discussed with the patient family spouse at bedside-decided for hospice/comfort measures, no aggressive treatments or lab draws. Patient was seen by hospice team recommended [facility] hospice. I was called to patient's bedside to pronounce patient has passed. No spontaneous movement was present. He did not respond to verbal or tactile stimuli. Pupils were mid dilated and fixed. No breath sounds were appreciated over either lung field. No carotid pulses were palpable. No heart sounds were auscultated over entire pericardium. Patient was pronounced on 03/12/2025 at 9:58 PM. Family bedside.? Patient was [employer]. Condolences offered. Additional Data Confirmation of as documented by pronouncing clinician: no pulse, no respirations, no heart sounds and pupils fixed and dilated Family: at bedside Attending physician: Sammie Watt MD Was code activated?: No Autopsy requested?: No light out examiner notified?: No Hospice patient?: Yes
== END 2025-03-13 00:22 | disposition expired | DRG 951 ==
PROVIDERS: Admitting Provider Internal Medicine; Visit Provider Internal Medicine
DX: Z51.5 Encounter for palliative care (principal); J96.01 Acute respiratory failure with hypoxia; J69.0 Pneumonitis due to inhalation of food and vomit; G92.8 Other toxic encephalopathy; I13.0 Hypertensive heart and chronic kidney disease with heart failure and stage 1 through stage 4 chronic kidney disease, or unspecified chronic kidney disease; F03.918 Unspecified dementia, unspecified severity, with other behavioral disturbance; N39.0 Urinary tract infection, site not specified; I50.9 Heart failure, unspecified; N18.31 Chronic kidney disease, stage 3a; Z87.891 Personal history of nicotine dependence; Z87.440 Personal history of urinary (tract) infections; Z96.0 Presence of urogenital implants; Z85.51 Personal history of malignant neoplasm of bladder
CPT/HCPCS: J1630; J2270

== ENCOUNTER → 2025-03-12 | Outpatient (BNV) | payer OTHER, SELFPAY | PROVIDERS: Admitting Provider Internal Medicine; Visit Provider Internal Medicine | DX: J96.01 Acute respiratory failure with hypoxia (principal); J18.9 Pneumonia, unspecified organism; F03.918 Unspecified dementia, unspecified severity, with other behavioral disturbance | CPT/HCPCS: 99238; 99499 ==